=== PATIENT | female | born 1950 | race Caucasian/White ===

== ENCOUNTER 2019-09-23 14:58 | Outpatient (CLI) | payer MEDICARE, OTHER, SELFPAY ==
--- NOTE | ~2019-09-23 | MM_ITS ---
EXAMINATION: MM screening enzo BI w jasson HISTORY: Screening mammogram TECHNIQUE: Craniocaudal and mediolateral oblique 3-D tomosynthesis images were obtained and synthetic 2-D images were generated. CAD analysis was submitted and interpreted. COMPARISON: 10/03/2011 bilateral digital screening mammogram BREAST PARENCHYMAL COMPOSITION: There are scattered areas of fibroglandular density. FINDINGS: There is no evidence of suspicious mass, calcification, or architectural distortion to sugg est malignancy in either breast. There has been no suspicious interval change. IMPRESSION: 1. No mammographic evidence of malignancy. 2. Recommend routine screening mammography in one year. BI-RADS Category 1: Negative Reviewed, dictated and finalized at location A. 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
--- NOTE | ~2019-09-23 | DEXA_ITS ---
Bone Density Report Name: Ce Young Age: 69 Sex: Female Ethnicity: White Date of : 1950 Indication: postmenopausal; height loss; prior fracture; cancer; hysterectomy; Referring Provider: Axel Price Study: Bone densitometry was performed. Exam Date: September 23, 2019 Accession number: [id number] Bone Density: Region BMD T-score Z-score Classification AP Spine (L1, L3, L4) 1.051 0.0 2.1 Normal Femoral Neck (Left) 0.832 -0.2 1.6 Normal Total Hip (Left) 0.942 0.0 1.5 Normal World Health Organization criteria for BMD impression classify patients as: Normal (T-score at or above -1.0), Osteopenia (T-score between -1.0 and -2.5), or Osteoporosis (T-score at or below -2.5). 10-year Fracture Risk: FRAX not reported because: All T-scores for Spine Total, Hip Total, Femoral Neck at or above -1.0 Prior hip or vertebral fracture Previous Exams: Region Exam Age BMD T-score BMD Change BMD Change Date g/cm2 vs Baseline vs Previous AP Spine(L1, L3, L4) 09/23/2019 69 1.051 0.0 0.028(2.8%)# 0.028(2.8%)# 03/24/2010 59 1.023 -0.3 Total Hip(Left) 09/23/2019 69 0.942 0.0 -0.011(-1.1%)# -0.011(-1.1%)# 03/24/2010 59 0.952 0.1 *Denotes significance at 95% confidence level, LSC for AP Spine = 0.022 g/cm2, LSC for Total Hip = 0.027 g/cm2 Clinical Information Provided by Patient: Have had a previous hip or vertebral fracture Has had a low trauma fracture Has used the following medications: Calcium Has the following medical conditions: Cancer, Hysterectomy Patient maximum height was 67 Menopause Age: 40 No regular weight bearing exercise Does not regularly consume dairy products Drinks caffeinated beverages Onset of menses at age 14 Number of children 2 Impression: The patient has normal bone mass. The patient has risk factors, including: previous fracture. No significant bone loss was observed. Discussion: INCREASED RISK OF FRACTURE DUE TO HISTORY OF FRACTURE. The patient's previous fracture puts the patient at high risk of a future fracture. In untreated patients, the risk of osteoporotic fracture increases approximately two-fold for each 1.0 SD decrease in T-score. Low bone density is not the only risk factor for fracture; also consider factors such as patient's age, frailty or poor health, risk of falling, risk of injury, previous osteoporotic fracture, family history of osteoporosis, cigarette smoking, low body weight, etc. Not everyone with a low trauma fracture has osteoporosis; osteomalacia and other met
== END 2019-09-23 14:59 | disposition home or self-care (01) ==
LOC: ANHIMG 15:07
PROVIDERS: PCP Family Medicine; Visit Provider Family Medicine
DX: Z12.31 Encounter for screening mammogram for malignant neoplasm of breast (principal); Z78.0 Asymptomatic menopausal state
CPT/HCPCS: 77063; 77067; 77080

== ENCOUNTER 2019-10-13 12:33 | Outpatient (CLI) | payer MEDICARE, OTHER, SELFPAY ==
[2019-10-13 12:57] LABS: Hematocrit 38.8 % (37.0-47.0); Mean Corpuscular HGB Conc 30.9 g/dl (32-36); Mean Corpuscular Hemoglobin 25.5 pg (26-34); Mean Corpuscular Volume 82.6 fl (80-100); Mean Platelet Volume 10.6 fl (7.4-10.4); Platelet Count Result 201 k/mm3 (150-375); Red Cell Distribution Width 13.5 % (11.5-14.5); White Blood Count 7.3 K/mm3 (4.5-10.0)
[2019-10-13 16:48] LABS: Iron 74 ug/dL (37-170)
[2019-10-13 16:57] LABS: Percent Iron Saturation 29 % (20-50)
== END 2019-10-13 12:34 | disposition home or self-care (01) ==
PROVIDERS: PCP Family Medicine; Visit Provider Internal Medicine Hematology & Oncology
DX: D50.9 Iron deficiency anemia, unspecified (principal)
CPT/HCPCS: 36415; 82607; 82728; 83540; 83550; 85027

== ENCOUNTER 2019-10-19 12:20 | Outpatient (RCR) | payer MEDICARE, OTHER, SELFPAY ==
[2019-10-19 13:16] VITALS: BMI 26.4
== END 2019-11-25 15:02 | disposition home or self-care (01) ==
LOC: ANHWOC 12:20
PROVIDERS: PCP Family Medicine; Visit Provider Family Medicine
DX: E11.621 Type 2 diabetes mellitus with foot ulcer (principal); L97.529 Non-pressure chronic ulcer of other part of left foot with unspecified severity
CPT/HCPCS: 99212; G0463

== ENCOUNTER 2019-10-22 15:22 | Outpatient (CLI) | payer MEDICARE, OTHER, SELFPAY ==
--- NOTE | ~2019-10-22 | XR_ITS ---
XR toe 1st LT min 2V 10/22/2019 16:04 Indication: Evaluate for osteomyelitis. Abrasion plantar surface left first digit. Procedure: 4 views left first toe Comparison: 05/2014 Findings: No fracture, subluxation or dislocation. Mild soft tissue swelling overlying the distal pha lanx. No foreign bodies. No osteolytic or blastic lesions are seen. No periosteal reaction. Normal al ignment. Impression: 1: No evidence for osteomyelitis. Consider correlation with MRI if there is clinical concern for oste omyelitis. Reviewed, dictated and finalized at location A. Impression: 1: No evidence for osteomyelitis. Consider correlation with MRI if there is cli nical concern for osteomyelitis.
== END 2019-10-22 15:23 | disposition home or self-care (01) ==
LOC: ANHIMG 15:31
PROVIDERS: PCP Family Medicine; Visit Provider Podiatrist Foot & Ankle Surgery
DX: M86.8X7 Other osteomyelitis, ankle and foot (principal)
CPT/HCPCS: 73660

== ENCOUNTER 2019-10-28 09:36 | Outpatient (CLI) | payer MEDICARE, OTHER, SELFPAY ==
--- NOTE | ~2019-10-28 | US_ITS ---
EXAMINATION: US carotid duplex BI EXAM DATE: 10/28/2019 11:15 INDICATION: Carotid stenosis, left carotid occlusion. TECHNIQUE: Grayscale, color and pulsed Doppler images of the cervical carotid arteries were obtained . The degree of vessel stenosis is placed in one of the following categories: normal, <50% stenosis, 50-69% stenosis, >=70% stenosis but less than near-occlusion, near-occlusion, or occlusion. Note that percent stenosis relative to normal distal artery lumen diameter is indirectly measured from velocit y measurements as described by Jeff, et al. Radiology 2003; [id number]:[id number]. Comparison is made to prior examination from 07/04/2015. FINDINGS: RIGHT SIDE: Right common carotid artery peak systolic velocity (PSV in cm/s): 102 Right bulb/internal carotid artery peak systolic velocity (PSV in cm/s): 48 Right internal carotid artery end diastolic velocity (EDV in cm/s): 41 Right ICA/CCA peak systolic ratio: 1.5 Right external carotid artery peak systolic velocity (PSV in cm/s): 2.1 Right vertebral artery antegrade flow: yes There is minimal carotid bulb plaque with discordant mildly elevated velocity. Visually, less than 50% stenosis category. LEFT SIDE: Left common carotid artery peak systolic velocity (PSV in cm/s): 28 Left bulb/internal carotid artery peak systolic velocity (PSV in cm/s): Included Left internal carotid artery end diastolic velocity (EDV in cm/s): Occluded Left ICA/CCA peak systolic ratio: Left external carotid artery peak systolic velocity (PSV in cm/s): 299 Left vertebral artery antegrade flow: yes No left ICA flow. IMPRESSION: 1. Less than 50 percent stenosis in the right internal carotid artery. 2. Occluded left internal carotid artery. > Reviewed, dictated and finalized at location A.
== END 2019-10-28 09:37 | disposition home or self-care (01) ==
PROVIDERS: PCP Family Medicine; Visit Provider Internal Medicine Cardiovascular Disease
DX: I65.29 Occlusion and stenosis of unspecified carotid artery (principal)
CPT/HCPCS: 93880

== ENCOUNTER 2019-11-06 22:50 | Emergency (ER) | payer MEDICARE, OTHER, SELFPAY ==
--- NOTE | ~2019-11-06 | XR_ITS ---
EXAMINATION: XR hip RT 2V w AP pelvis DATE: 11/06/2019 23:51 INDICATION: Right hip pain. Fall. TECHNIQUE: An anteroposterior view of the pelvis and 3 views of right hip were obtained. COMPARISON: Pelvis and right hip radiographs 07/05/2019 FINDINGS: There is an old healed fracture of proximal right femur with internal fixation with antegra de intramedullary zara, distal interlocking screw, and femoral head/neck screw. No acute fracture. The re is mild right hip osteoarthritis. A generator overlies right pelvis with electrodes overlying the spine. A catheter overlies the spine. IMPRESSION: 1. Mild right hip osteoarthritis. Reviewed, dictated and finalized at location A.
--- NOTE | ~2019-11-06 | CT_ITS ---
EXAMINATION: CT brain wo con DATE: 11/06/2019 23:50 INDICATION: Head injury. Headache. TECHNIQUE: Computed tomography (CT) of the head was performed without intravenous contrast. The mA wa s adjusted according to patient size. Iterative reconstruction technique was employed. The dose-lengt h product was 605.33 mGy-cm. COMPARISON: Head CT 02/13/2019 FINDINGS: There is an old infarct involving left temporal parietal region and posterior left insula. There is an old infarct in involving left frontal lobe and anterior left insula. There is no intracra nial hemorrhage, acute infarction, or abnormal intracranial mass lesion. The ventricles are normal in size. There is mild mucosal thickening in the ethmoid sinuses. The mastoid air cells are normal. The re are likely changes of ocular lens replacement surgeries. IMPRESSION: 1. 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 Reviewed, dictated and finalized at location A. IMPRESSION: 1. Old infarcts involving left frontal lobe, left insula, and left temporal par ietal region.
[2019-11-06 22:55] VITALS: BP 144/60; PULSE 66; RESP 16; TEMP 36.4; O2SAT 98
--- NOTE | 2019-11-06 23:05 | ED.FALL ---
HPI - Fall General Chief Complaint: Fall Stated Complaint: Hip pain Time Seen by Provider: 11/06/19 23:05 Source: patient Mode of arrival: ambulatory Limitations: no limitations History of Present Illness HPI Narrative: 69-year-old woman comes in today complaining of right hip pain after falling at home. She states the last few days she has felt off balance. She states that she had 2 episodes earlier today where she fell and caught herself however at approximately 9:00 p.m. this evening she fell on her right hip in her head. She did not lose consciousness. She denies president symptoms such as lightheadedness, nausea, palpitations, rapid heart rate, chest pain, shortness of breath or recent illness. MD complaint: fall Onset (ago): hour(s) (2) Fall from: standing Fall witnessed: no Place fall occurred: home Loss of consciousness: none Prolonged down time: no Symptoms prior to fall: none Location of injury: head Location of injury - extremities: Right: thigh Severity: moderate Quality: sharp and aching Associated symptoms (after fall): denies Related Data Home Medications Medication Instructions Recorded Confirmed aspirin 81 mg tablet,delayed 81 mg PO BID 06/22/19 11/06/19 release atorvastatin 10 mg tablet 20 mg PO HS 06/22/19 11/06/19 docusate sodium 100 mg capsule 100 mg PO DAILY PRN 06/22/19 11/06/19 empagliflozin 25 mg tablet 25 mg PO DAILY 06/22/19 11/06/19 ferrous sulfate 325 mg (65 mg 325 mg PO TID tablet 06/22/19 11/06/19 iron) tablet hydralazine 25 mg tablet 50 mg PO TID 06/22/19 10/26/19 hydrochlorothiazide 25 mg tablet 25 mg PO DAILY 06/22/19 10/26/19 insulin glargine 100 unit/mL 30 unit SUB-Q BID ml 06/22/19 10/26/19 subcutaneous solution montelukast 10 mg tablet 10 mg PO DAILY 06/22/19 10/26/19 omega-3 acid ethyl esters 1 gram 1 cap PO TID cap 06/22/19 10/26/19 capsule ascorbic acid (vitamin C) [Vitamin 500 mg PO DAILY 10/19/19 11/06/19 C With Марина Hips] cyanocobalamin (vitamin B-12) 1,000 mcg PO DAILY 10/19/19 11/06/19 [Vitamin B-12] magnesium oxide 400 mg PO BID 10/19/19 10/26/19 mirabegron [Myrbetriq] 25 mg PO DAILY 10/19/19 10/26/19 Allergies Allergy/AdvReac Type Severity Reaction Status Date / Time oxybutynin Allergy Intermediate PROBLEMS Verified 10/26/19 13:35 BREATHING bupropion Allergy Unknown Nervousness Verified 10/26/19 13:35 cephalexin Allergy Unknown unknown Verified 10/26/19 13:35 fexofenadine Allergy Unknown UPPER RESP Verified 10/26/19 13:35 INFECTION lisinopril Allergy Unknown TONGUE Verified 10/26/19 13:35 Swelling paroxetine Allergy Unknown NIGHT Verified 10/26/19 13:35 SWEATS tizanidine Allergy Unknown blurred Verified 10/26/19 13:35 vision trimethoprim Allergy Unknown Unknown Verified 10/26/19 13:35 Review of Systems Constitutional: Constitutional: Denies chills, Denies fever(s) and Denies weakness Eyes: Eyes: Denies change in vision and Denies photophobia ENT: Denies dysphagia, Denies nasal congestion and Denies sore throat Cardiovascular: Cardiovascular: Denies chest pain and Denies radiating jaw, neck or arm pain Respiratory: Respiratory: Denies cough, Denies dyspnea and Denies wheezing Gastrointestinal: Gastrointestinal: Denies abdominal pain, Denies diarrhea, Denies nausea and Denies vomiting Genitourinary: Genitourinary: Denies hematuria, Denies nocturia and Denies dysuria Musculoskeletal: Musculoskeletal: Reports as per HPI, Denies back pain, Reports arthralgias and Denies joint swelling Integumentary/Breasts: Skin/Breast: Denies pruritus, Denies erythema and Denies rash Neurologic: Reports as per HPI, Denies vertigo, Reports dizziness and Denies syncope Psychiatric: Psychiatric: Denies anxiety and Denies depression Endocrine: Endocrine: Denies polydipsia and Denies polyuria Hematologic/Lymphatic: Hematologic/Lymphatic: Denies easy bleeding and Denies easy bruising Allergic/Immunologic: Allergic/Immunologic: Caio
--- NOTE | 2019-11-06 23:15 | ECG_ITS ---
Measurements Intervals [place] Rate: 72 P: 93 W[place]: 181 QRS: -14 QRSD: 84 T: 28 QT: 414 QTc: 455 Interpretive Statements SINUS RHYTHM LOW QRS VOLTAGE IN PRECORDIAL LEADS BORDERLINE R WAVE PROGRESSION, ANTERIOR LEADS CONSIDER INFERIOR INFARCT, AGE INDETERMINATE ABNORMAL ECG Electronically Signed On 11-07-2019 8:31:52 CDT by Frantz Guzman D.O.
[2019-11-06 23:38] LABS: Add Urine Microscopic? YES; Appearance Urine Clear (Clear); Bilirubin Urine Negative (Negative); Blood Urine Negative (Negative); Color Urine Yellow (Yellow); Glucose Urine UA 3+ (Negative); Ketones Urine Negative (Negative); Leukocyte Esterase Ur Negative (Negative); Nitrate Urine Negative (Negative); Protein Urine Negative (Negative); Specific Grav Ur 1.015 (1.010-1.020); Urobilinogen Urine 0.2 mg/dL (0.2-1.0); pH Urine 5.5 (5.0-8.0)
[2019-11-06 23:39] LABS: Basophils Absolute Auto 0.06 K/mm3 (0.00-0.10); Basophils Percent Auto 0.6 % (0.0-1.0); Eosinophils Absolute Auto 0.24 K/mm3 (0.02-0.50); Eosinophils Percent Auto 2.5 % (1.0-6.0); Hematocrit 37.9 % (35.0-42.0); Hemoglobin 12.2 g/dL (11.7-13.8); Immature Granulocyte Absolute 0.04 K/mm3 (0.00-0.00); Immature Granulocyte Percent A 0.4 % (0.0-0.0); Lymphocytes Absolute Auto 1.47 K/mm3 (1.10-4.50); Lymphocytes Percent Auto 15.1 % (18.0-42.0); Mean Corpuscular HGB Conc 32.2 g/dL (32.0-36.0); Mean Corpuscular Hemoglobin 25.8 pg (27.0-31.0); Mean Corpuscular Volume 80.3 fL (78.0-102.0); Mean Platelet Volume 10.9 fl (9.2-11.8); Monocytes Percent Auto 7.2 % (2.0-11.0); Neutrophils Absolute Auto 7.2 K/mm3 (1.7-7.2); Neutrophils Percent Auto 74.2 % (50.0-70.0); Platelet Count Result 265 K/mm3 (150-420); Red Blood Count 4.72 M/mm3 (4.20-5.40); Red Cell Distribution Width 13.2 % (11.6-14.4); White Blood Count 9.7 K/mm3 (4.8-10.8)
[2019-11-06 23:44] LABS: RBC Urine 0-2 /hpf (0-2); Squamous Epithelial Cell Urine Rare /hpf (Few); WBC Urine 0-3 /hpf (0-3)
[2019-11-06 23:45] LABS: Bacteria Urine Trace /hpf
[2019-11-06 23:57] VITALS: BP 142/63; PULSE 70; RESP 16; O2SAT 98
[2019-11-06 23:57] LABS: Anion Gap 13.2 mmol/L (7-16); Blood Urea Nitrogen 27 mg/dL (7-18); Calcium 8.7 mg/dL (8.5-10.1); Carbon Dioxide 28 mmol/L (21-32); Chloride 100 mmol/L (98-108); Estimated CRCL calculation 40 ml/min; Estimated Glomerular Filt Rate 47; Glucose 164 mg/dL (70-99); Osmolality Calculated 293 mOsm/kg (285-295); Potassium 4.2 mmol/L (3.5-5.1); Sodium 137 mmol/L (136-145)
[2019-11-07 00:06] LABS: Troponin I < 0.02 ng/mL (0.00-0.056)
[2019-11-07 00:17] VITALS: BP 140/80; PULSE 66; RESP 16; TEMP 36.4; O2SAT 98
== END 2019-11-07 00:31 | disposition home or self-care (01) ==
PROVIDERS: Emergency Provider Emergency Medicine; PCP Family Medicine
DX: R26.89 Other abnormalities of gait and mobility (principal); S70.01XA Contusion of right hip, initial encounter; N18.9 Chronic kidney disease, unspecified; E11.9 Type 2 diabetes mellitus without complications; Z86.73 Personal history of transient ischemic attack (TIA), and cerebral infarction without residual deficits; E78.5 Hyperlipidemia, unspecified; Z85.528 Personal history of other malignant neoplasm of kidney; Z87.891 Personal history of nicotine dependence; W19.XXXA Unspecified fall, initial encounter; I12.9 Hypertensive chronic kidney disease with stage 1 through stage 4 chronic kidney disease, or unspecified chronic kidney disease
CPT/HCPCS: 36415; 70450; 73502; 73521; 80048; 81001; 84484; 85025; 93005; 99284

== ENCOUNTER 2019-12-09 15:53 | Outpatient (CLI) | payer MEDICARE, OTHER, SELFPAY ==
--- NOTE | ~2019-12-09 | XR_ITS ---
EXAMINATION: XR toe 1st LT min 2V EXAM DATE: 12/09/2019 16:22 INDICATION: Left foot infection, pain. Rule out osteomyelitis. TECHNIQUE: Left first finger frontal, lateral and oblique projections obtained and reviewed. Compari son is made to prior examination from 10/22/2019. FINDINGS: Tiny erosion identified along the volar medial nonarticular aspect of the left first distal phalangeal base, suspicious for early osteomyelitis. This was not evident on the prior study. This f inding has been indicated, marked on the examination for review, clinical correlation. There are siza ble ulceration identified overlying the toe and there is extensive soft tissue swelling without evide nce of subcutaneous gas. There are no acute fractures identified. No radiopaque foreign bodies identi fied. IMPRESSION: 1. Interval development of small erosive change at medial aspect left first distal phalangeal base kolb spicious for early osteomyelitis. 2. First digit soft tissue ulceration, swelling. Reviewed, dictated and finalized at location A. IMPRESSION: 1. Interval development of small erosive change at medial aspect left first dis debi phalangeal base suspicious for early osteomyelitis. 2. First digit soft tissue ulceration, swelling.
== END 2019-12-09 15:54 | disposition home or self-care (01) ==
PROVIDERS: PCP Family Medicine; Visit Provider Podiatrist Foot & Ankle Surgery
DX: M86.8X7 Other osteomyelitis, ankle and foot (principal)
CPT/HCPCS: 73660

== ENCOUNTER 2019-12-21 12:18 | Outpatient (CLI) | payer MEDICARE, OTHER, SELFPAY ==
--- NOTE | ~2019-12-21 | US_ITS ---
EXAMINATION: US arterial duplex LE EXAM DATE: 12/21/2019 13:33 INDICATION: Left first toe osteomyelitis. TECHNIQUE: Multiple grayscale and Doppler images of the left lower extremity were obtained (by a tech nologist who performed the scan) and subsequently reviewed. There is no prior study for comparison. FINDINGS: Following left lower extremity velocities reported in centimeters per second. DIRECTOR OF INTELLIGENCE: 134 DFA: 95 SFA proximally 123, mid 129, distally 125 Popliteal proximally 95, distally 99 Dorsalis pedis 47 MANAGER OF RECRUITING mid 83, distally 87 Peroneal mid 54, distally 34 Anterior tibial 54 IMPRESSION: Left lower extremity arterial velocities as above. Reviewed, dictated and finalized at location A.
== END 2019-12-21 12:19 | disposition home or self-care (01) ==
LOC: ANHIMG 12:27
PROVIDERS: PCP Family Medicine; Visit Provider Internal Medicine Infectious Disease
DX: M86.179 Other acute osteomyelitis, unspecified ankle and foot (principal); R09.89 Other specified symptoms and signs involving the circulatory and respiratory systems
CPT/HCPCS: 36569; 93926; C1751

== ENCOUNTER 2019-12-26 02:21 | Emergency (ER) | payer MEDICARE, OTHER, SELFPAY ==
--- NOTE | ~2019-12-26 | XR_ITS ---
EXAMINATION: XR chest 2V DATE: 12/26/2019 03:15 INDICATION: Chest pain after fall TECHNIQUE: Frontal and lateral views of the chest are obtained COMPARISON: 02/13/2019 FINDINGS: The lungs are free of acute opacities. There is no pleural effusion or pneumothorax. The ca rdiomediastinal silhouette is normal. Neurostimulator leads project in the central spinal canal over the mid/lower thoracic spine. There is a questionable subtle irregularity of the lower sternum on the lateral view. Surgical clips in the right upper quadrant are likely from prior cholecystectomy. IMPRESSION: 1. No acute cardiopulmonary abnormality. 2. Possible nondisplaced fracture of the lower sternum. Reviewed, dictated and finalized at location A.
[2019-12-26 02:34] VITALS: BP 131/84; PULSE 81; RESP 20; TEMP 36.4; O2SAT 97
--- NOTE | 2019-12-26 02:38 | ED.GENADULT ---
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 She fell asleep in an office chair, which she does frequently, and landed forward on her face and chest. She immediately started having an aching pain in her sternum. Preciding going down she was asleep and had no CP. No SOB, N/V, lightheadedness, syncope or diaphoresis. Related Data Home Medications Medication Instructions Recorded Confirmed aspirin 81 mg tablet,delayed 81 mg PO BID 06/22/19 12/26/19 release docusate sodium 100 mg capsule 100 mg PO DAILY PRN 06/22/19 12/26/19 ferrous sulfate 325 mg (65 mg 325 mg PO TID tablet 06/22/19 12/26/19 iron) tablet hydralazine 25 mg tablet 50 mg PO TID 06/22/19 12/26/19 hydrochlorothiazide 25 mg tablet 25 mg PO DAILY 06/22/19 12/26/19 insulin glargine 100 unit/mL 20 unit SUB-Q BID ml 06/22/19 12/26/19 subcutaneous solution montelukast 10 mg tablet 10 mg PO DAILY 06/22/19 12/26/19 cyanocobalamin (vitamin B-12) 1,000 mcg PO DAILY 10/19/19 12/26/19 [Vitamin B-12] mirabegron [Myrbetriq] 25 mg PO DAILY 10/19/19 12/26/19 metformin 1,000 mg PO BID 12/26/19 12/26/19 montelukast [Singulair] 10 mg PO HS 12/26/19 12/26/19 omega-3 acid ethyl esters [Lovaza] 1 cap PO BID 12/26/19 12/26/19 omega-3 acid ethyl esters [Lovaza] 1 cap PO BID 12/26/19 12/26/19 valsartan [Diovan] 40 mg PO BID 12/26/19 12/26/19 Allergies Allergy/AdvReac Type Severity Reaction Status Date / Time oxybutynin Allergy Intermediate PROBLEMS Verified 10/26/19 13:35 BREATHING bupropion Allergy Unknown Nervousness Verified 10/26/19 13:35 cephalexin Allergy Unknown unknown Verified 10/26/19 13:35 fexofenadine Allergy Unknown UPPER RESP Verified 10/26/19 13:35 INFECTION lisinopril Allergy Unknown TONGUE Verified 10/26/19 13:35 Swelling paroxetine Allergy Unknown NIGHT Verified 10/26/19 13:35 SWEATS tizanidine Allergy Unknown blurred Verified 10/26/19 13:35 vision trimethoprim Allergy Unknown Unknown Verified 10/26/19 13:35 Review of Systems Constitutional: Constitutional: Denies chills, Denies fever(s) and Denies weakness Eyes: Eyes: Reports no additional eye complaints ENT: Reports system reviewed and no additional complaints, except as documented Cardiovascular: Cardiovascular: Denies no additional cardiovascular complaints Respiratory: Respiratory: Denies no additional respiratory complaints, Denies cough, Denies dyspnea and Denies wheezing Gastrointestinal: Gastrointestinal: Reports no additional gastrointestinal complaints, Denies abdominal pain, Denies diarrhea, Denies nausea and Denies vomiting Genitourinary: Genitourinary: Reports no additional female genitourinary complaints Musculoskeletal: Musculoskeletal: Reports no additional musculoskeletal complaints Neurologic: Reports system reviewed and no additional complaints, except as documented Psychiatric: Comments: Is worried about a in the hospital with surgery after a bowel surgery was taken out. Endocrine: Endocrine: Reports no additional endocrine complaints Hematologic/Lymphatic: Hematologic/Lymphatic: Reports no additional hematologic/lymphatic complaints Allergic/Immunologic: Allergic/Immunologic: Reports no additional allergic/immunologic complaints [facility] Past Medical History Medical History Anemia Anxiety Chronic kidney disease CVA (cerebral vascular accident) Diabetes type 2, controlled Diverticulosis Dyslipidemia Hypertension Kidney malignant neoplasm Right femoral fracture Right patella fracture Sleep apnea Vitamin B12 deficiency Surgical History Surgical History (Reviewed 12/26/19 @ 02:56 by Kiet Titus
[2019-12-26 03:28] VITALS: BP 157/64; PULSE 85; RESP 18; TEMP 36.7; O2SAT 98
--- NOTE | 2019-12-26 04:01 | PC.NURSE ---
ERP called pt. at home p d/c to discuss radiology findings and results. Pt. aware of results and POC to return if sxs worsen and to f/u c her FMD.
== END 2019-12-26 03:36 | disposition home or self-care (01) ==
PROVIDERS: Emergency Provider Family Medicine; PCP Family Medicine
DX: R07.89 Other chest pain (principal); E11.9 Type 2 diabetes mellitus without complications; N18.9 Chronic kidney disease, unspecified; I12.9 Hypertensive chronic kidney disease with stage 1 through stage 4 chronic kidney disease, or unspecified chronic kidney disease
CPT/HCPCS: 71046; 99282; 99283; A9270

== ENCOUNTER 2019-12-29 09:47 | Outpatient (RCR) | payer MEDICARE, OTHER, SELFPAY ==
[2019-12-21 11:05] VITALS: BP 140/47; PULSE 92; RESP 18; TEMP 36; O2SAT 100
[2019-12-29 09:55] VITALS: BP 152/63; PULSE 99; RESP 16; TEMP 36.6; O2SAT 96
[2019-12-29 11:41] VITALS: BMI 25.5
== END 2020-03-20 23:59 | disposition home or self-care (01) ==
LOC: ANHVASCINF 09:47
PROVIDERS: PCP Family Medicine; Visit Provider Internal Medicine Infectious Disease
DX: M86.179 Other acute osteomyelitis, unspecified ankle and foot (principal)
CPT/HCPCS: 36569; 96361; 96365; C1751; J0696

== ENCOUNTER 2020-01-28 10:52 | Outpatient (RCR) | payer MEDICARE, SELFPAY ==
[2020-01-07 17:56] LABS: Basophils Absolute Auto 0.1 K/mm3 (0.0-0.1); Basophils Percent Auto 0.6 % (0.2-1.2); Eosinophils Absolute Auto 0.4 K/mm3 (0-0.3); Eosinophils Percent Auto 4.5 % (0-4.4); Hematocrit 27.7 % (37.0-47.0); Hemoglobin 8.6 g/dL (12.0-15.0); Immature Granulocyte Absolute 0.02 K/mm3 (0.00-0.031); Immature Granulocyte Percent A 0.2 % (0-0.5); Lymphocytes Absolute Auto 1.82 K/mm3 (0.9-3.2); Lymphocytes Percent Auto 22.2 % (18.3-44.2); Mean Corpuscular Hemoglobin 25.6 pg (26-34); Mean Corpuscular Volume 82.4 fl (80-100); Mean Platelet Volume 11.1 fl (7.4-10.4); Monocytes Absolute Auto 0.7 K/mm3 (0.1-0.6); Monocytes Percent Auto 8.6 % (2.6-8.5); Neutrophils Absolute Auto 5.2 K/mm3 (1.3-6.7); Neutrophils Percent Auto 63.9 % (45.5-73.1); Platelet Count Result 252 k/mm3 (150-375); Red Blood Count 3.36 M/mm3 (4.2-5.4); White Blood Count 8.2 K/mm3 (4.5-10.0)
[2020-01-07 18:12] LABS: Alanine Aminotransferase 11 U/L (4-35); Albumin Level 3.4 g/dL (3.5-5.1); Alkaline Phosphatase 110 U/L (38-126); Aspartate Amino Transferase 17 U/L (14-36); Bilirubin,Total 0.1 mg/dL (0.2-1.3); Blood Urea Nitrogen 18 mg/dL (7-17); Calcium 8.3 mg/dL (8.4-10.2); Carbon Dioxide 30 mmol/L (22-30); Chloride 101 mmol/L (98-107); Estimated Glomerular Filt Rate > 60; Glucose 166 mg/dL (65-105); Potassium 3.5 mmol/L (3.4-5.0); Sodium 137 mmol/L (137-145)
[2020-01-07 18:13] LABS: CRP 3.7 mg/dL (<1.0)
[2020-01-14 13:23] LABS: Basophils Absolute Auto 0.1 K/mm3 (0.0-0.1); Basophils Percent Auto 0.6 % (0.2-1.2); Eosinophils Absolute Auto 0.5 K/mm3 (0-0.3); Eosinophils Percent Auto 4.8 % (0-4.4); Hematocrit 34.4 % (37.0-47.0); Hemoglobin 10.6 g/dL (12.0-15.0); Immature Granulocyte Absolute 0.04 K/mm3 (0.00-0.031); Immature Granulocyte Percent A 0.4 % (0-0.5); Lymphocytes Absolute Auto 1.78 K/mm3 (0.9-3.2); Lymphocytes Percent Auto 18.1 % (18.3-44.2); Mean Corpuscular HGB Conc 30.8 g/dl (32-36); Mean Corpuscular Hemoglobin 25.4 pg (26-34); Mean Corpuscular Volume 82.5 fl (80-100); Mean Platelet Volume 11.1 fl (7.4-10.4); Monocytes Absolute Auto 0.9 K/mm3 (0.1-0.6); Monocytes Percent Auto 8.8 % (2.6-8.5); Neutrophils Absolute Auto 6.6 K/mm3 (1.3-6.7); Neutrophils Percent Auto 67.3 % (45.5-73.1); Platelet Count Result 309 k/mm3 (150-375); Red Blood Count 4.17 M/mm3 (4.2-5.4); Red Cell Distribution Width 14.1 % (11.5-14.5); White Blood Count 9.9 K/mm3 (4.5-10.0)
[2020-01-14 13:30] LABS: Alanine Aminotransferase 13 U/L (4-35); Alkaline Phosphatase 147 U/L (38-126); Aspartate Amino Transferase 20 U/L (14-36); Bilirubin,Total 0.1 mg/dL (0.2-1.3); Blood Urea Nitrogen 20 mg/dL (7-17); CRP 3.8 mg/dL (<1.0); Calcium 8.6 mg/dL (8.4-10.2); Carbon Dioxide 33 mmol/L (22-30); Chloride 95 mmol/L (98-107); Estimated Glomerular Filt Rate > 60; Glucose 117 mg/dL (65-105); Potassium 3.7 mmol/L (3.4-5.0); Sodium 133 mmol/L (137-145)
[2020-01-28 11:52] LABS: Alanine Aminotransferase 13 U/L (4-35); Albumin Level 3.7 g/dL (3.5-5.1); Alkaline Phosphatase 113 U/L (38-126); Aspartate Amino Transferase 18 U/L (14-36); Bilirubin,Total < 0.1 mg/dL (0.2-1.3); Blood Urea Nitrogen 18 mg/dL (7-17); CRP 1.2 mg/dL (<1.0); Calcium 8.6 mg/dL (8.4-10.2); Carbon Dioxide 33 mmol/L (22-30); Chloride 96 mmol/L (98-107); Estimated Glomerular Filt Rate > 60; Glucose 179 mg/dL (65-105); Potassium 4.1 mmol/L (3.4-5.0); Sodium 135 mmol/L (137-145)
[2020-01-28 12:31] LABS: Basophils Absolute Auto 0.1 K/mm3 (0.0-0.1); Basophils Percent Auto 0.9 % (0.2-1.2); Eosinophils Absolute Auto 0.4 K/mm3 (0-0.3); Eosinophils Percent Auto 7.2 % (0-4.4); Hematocrit 34.3 % (37.0-47.0); Hemoglobin 10.4 g/dL (12.0-15.0); Immature Granulocyte Absolute 0.02 K/mm3 (0.00-0.031); Immature Granulocyte Percent A 0.4 % (0-0.5); Lymphocytes Absolute Auto 1.23 K/mm3 (0.9-3.2); Lymphocytes Percent Auto 21.7 % (18.3-44.2); Mean Corpuscular HGB Conc 30.3 g/dl (32-36); Mean Corpuscular Hemoglobin 24.9 pg (26-34); Mean Corpuscular Volume 82.3 fl (80-100); Mean Platelet Volume 11.1 fl (7.4-10.4); Monocytes Absolute Auto 0.6 K/mm3 (0.1-0.6); Monocytes Percent Auto 10.4 % (2.6-8.5); Neutrophils Absolute Auto 3.4 K/mm3 (1.3-6.7); Neutrophils Percent Auto 59.4 % (45.5-73.1); Platelet Count Result 255 k/mm3 (150-375); Red Blood Count 4.17 M/mm3 (4.2-5.4); Red Cell Distribution Width 14.2 % (11.5-14.5); White Blood Count 5.7 K/mm3 (4.5-10.0)
== END 2020-04-06 23:59 | disposition home or self-care (01) ==
LOC: HOME HLTH 10:52
PROVIDERS: PCP Family Medicine; Visit Provider Internal Medicine Infectious Disease
DX: M86.8X7 Other osteomyelitis, ankle and foot (principal); L97.529 Non-pressure chronic ulcer of other part of left foot with unspecified severity; Z79.2 Long term (current) use of antibiotics
CPT/HCPCS: 80053; 85025; 86140

== ENCOUNTER 2020-02-11 11:33 | Outpatient (CLI) | payer MEDICARE, OTHER, SELFPAY ==
--- NOTE | ~2020-02-11 | XR_ITS ---
EXAMINATION: XR foot LT 2V DATE: 02/11/2020 12:13 INDICATION: Acute osteomyelitis TECHNIQUE: Dorsoplantar and lateral views of the left foot were obtained. COMPARISON: Left toe radiographs dated 12/09/2019 FINDINGS: Alignment is normal. Prominent juxta articular erosion with overhanging edge at the medial head of th e right first proximal phalanx which appears to result from an expansile process with medial displace ment of a few tiny bone fragments. Old healed fracture deformity at the neck of the fifth metatarsal. No other fractures identified. Aside from the first interphalangeal joint which is normal profile. R emaining joint spaces appear relatively preserved. Likely osteochondral lesion at the medial talar do me with similar appearance as seen on the prior radiographs of the contralateral left ankle. Small pl kaylene calcaneal spur. IMPRESSION: 1. Erosion at the medial head of the right first proximal phalanx which could be related to gout or o steomyelitis. 2. Osteochondral lesion at the medial right talar dome. Reviewed, dictated and finalized at location A. IMPRESSION: 1. Erosion at the medial head of the right first proximal phalanx which could b e related to gout or osteomyelitis. 2. Osteochondral lesion at the medial right talar dome.
== END 2020-02-11 11:34 | disposition home or self-care (01) ==
PROVIDERS: PCP Family Medicine; Visit Provider Internal Medicine Infectious Disease
DX: M86.179 Other acute osteomyelitis, unspecified ankle and foot (principal)
CPT/HCPCS: 73620

== ENCOUNTER 2020-02-24 17:54 | Outpatient (CLI) | payer MEDICARE, OTHER, SELFPAY ==
--- NOTE | ~2020-02-24 | CT_ITS ---
EXAMINATION: CT thoracic lumbar wo con DATE: 02/24/2020 18:23 INDICATION: Thoracic back pain. Low back pain. TECHNIQUE: Computed tomography (CT) of the thoracic and lumbar spine was performed without intravenou s contrast. Automated exposure control and iterative reconstruction technique were employed. The dose -length product was 1217.78 mGy-cm. COMPARISON: Thoracic spine CT 10/09/2014, chest CT 10/24/2018 FINDINGS: CT THORACIC SPINE: There is mild emphysema. Calcified left lung nodules and calcified left hilar and mediastinal lymph nodes are consistent with old granulomatous disease. There is 14 degrees dextroscol iosis of thoracic spine. There is kyphosis of thoracic spine. There is a chronic compression fracture of T1 with 2/5 loss of height. There are compression fractures of T3 and T4 with up to 1/5 loss of h eight. There is mildly decreased disc height from T4-T5 and T5-T6, moderately decreased disc height a t T6-T7 and T7-T8, mildly decreased disc height at T8-T9, T9-T10, and T10-T11, and severely decreased disc height at T11-T12. There are endplate osteophytes at most levels. There is multilevel mild face t joint osteoarthritis. There is mild bilateral neural foraminal stenosis at T2-T3. There is mild hilario tral canal stenosis at T1-T2, T5-T6, T6-T7, T7-T8, and T8-T9. Epidural electrodes are noted. An intra thecal catheter is also noted. CT LUMBAR SPINE: There are changes of partial right nephrectomy. There is 8 degrees levocurvature of lumbar spine. Vertebral body heights are normal. There is mildly decreased disc height at L2-L3 and m oderately decreased disc height at L3-L4. The following disc levels are specifically discussed: L1-L2: The disc is bulging. There is mild bilateral facet joint osteoarthritis. There is mild bilater al neural foraminal stenosis. There is mild central canal stenosis. L2-L3: The disc is bulging. There is moderate bilateral facet joint osteoarthritis. There is mild isabel ateral neural foraminal stenosis. There is mild central canal stenosis. L3-L4: The disc is bulging. There is severe right and moderate left facet joint osteoarthritis. There is mild bilateral neural foraminal stenosis. There is moderate central canal stenosis. L4-L5: The disc is bulging. There is moderate right and mild left facet joint osteoarthritis. There i s mild bilateral neural foraminal stenosis. There is moderate central canal stenosis. L5-S1: The disc is bulging. There is moderate bilateral facet joint osteoarthritis. There is no neura l foraminal stenosis. There is mild central canal stenosis. IMPRESSION: 1. Severe thoracic spondylosis and moderate lumbar spondylosis. 2. Thoracic dextroscoliosis and kyphosis. 3. Age-indeterminate compression fractures of T3 and T4, new from 10/24/2018. Reviewed, dictated and finalized at location A.
== END 2020-02-24 17:55 | disposition home or self-care (01) ==
PROVIDERS: PCP Family Medicine; Visit Provider Nurse Practitioner Family
DX: M47.896 Other spondylosis, lumbar region (principal); M47.894 Other spondylosis, thoracic region
CPT/HCPCS: 72128; 72131

== ENCOUNTER 2020-03-04 13:24 | Emergency (ER) | payer MEDICARE, OTHER, SELFPAY ==
--- NOTE | ~2020-03-04 | CT_ITS ---
EXAMINATION: CT brain wo con DATE: 03/04/2020 15:44 INDICATION: Fall. Posterior vertex pain. Dizziness. History of stroke in 2013. TECHNIQUE: Computed tomography (CT) of the head was performed without intravenous contrast. The mA wa s adjusted according to patient size. Iterative reconstruction technique was employed. Exam dose: 52 9.67 mGy-cm total exam DLP. COMPARISON: 11/06/2019 CT brain FINDINGS: Stable chronic posterior left temporoparietal cerebrovascular accident, unchanged since 10/11. No intracranial mass lesion or hemorrhage, midline shift or mass effect or subdural or epidural hemat lorraine is evident. No interval cerebrovascular accident is detected.. There is bilateral carotid siphon internal carotid artery calcifications. No fracture or bone destruction of the cranial vault. IMPRESSION: Chronic left temporoparietal cerebrovascular accident; no acute intracranial finding Reviewed, dictated and finalized at [facility]. Reviewed, dictated and finalized at [facility]. IMPRESSION: Chronic left temporoparietal cerebrovascular accident; no acute in tracranial finding
[2020-03-04 14:15] VITALS: BP 140/73; PULSE 78; RESP 14; TEMP 36.7; O2SAT 98
[2020-03-04 14:32] LABS: Glucose Point of Care 54 (65-105)
--- NOTE | 2020-03-04 15:08 | ED.FALL ---
HPI - Fall General Chief Complaint: Fall Stated Complaint: fell hit head on door just doesnt feel right Source: patient Mode of arrival: ambulatory Limitations: no limitations History of Present Illness HPI Narrative: 69-year-old with diabetes status post CVA tripped while wearing a slipper at 13:00 today. She fell to her left side hitting her head on the door and her left shoulder and hip on the floor. She was able to get up unassisted and walk without pain. Since then she has had left shoulder and knee pain but is able to ambulate and move them with minimal pain. She complained of not felling right after she fell, which has since resolved. Her CVA deficit was a partial aphasia which has resolved to the point of not being noticeable. She is recovering from osteomyelitis of the left foot which requires dressing changes and not wearing a shoe which presses on the dorsum of the foot, thus the slipper she had on at the time of the fall. Related Data Home Medications Medication Instructions Recorded Confirmed aspirin 81 mg tablet,delayed 81 mg PO BID 06/22/19 03/04/20 release ferrous sulfate 325 mg (65 mg 325 mg PO TID tablet 06/22/19 03/04/20 iron) tablet hydralazine 25 mg tablet 50 mg PO TID 06/22/19 03/04/20 hydrochlorothiazide 25 mg tablet 25 mg PO DAILY 06/22/19 03/04/20 insulin glargine 100 unit/mL 20 unit SUB-Q BID ml 06/22/19 03/04/20 subcutaneous solution montelukast 10 mg tablet 10 mg PO DAILY 06/22/19 03/04/20 cyanocobalamin (vitamin B-12) 1,000 mcg PO DAILY 10/19/19 03/04/20 [Vitamin B-12] metformin 1,000 mg PO BID 12/26/19 03/04/20 omega-3 acid ethyl esters [Lovaza] 1 cap PO BID 12/26/19 03/04/20 valsartan [Diovan] 40 mg PO BID 12/26/19 03/04/20 Allergies Allergy/AdvReac Type Severity Reaction Status Date / Time oxybutynin Allergy Intermediate PROBLEMS Verified 10/26/19 13:35 BREATHING bupropion Allergy Unknown Nervousness Verified 10/26/19 13:35 cephalexin Allergy Unknown unknown Verified 10/26/19 13:35 fexofenadine Allergy Unknown UPPER RESP Verified 10/26/19 13:35 INFECTION lisinopril Allergy Unknown TONGUE Verified 10/26/19 13:35 Swelling paroxetine Allergy Unknown NIGHT Verified 10/26/19 13:35 SWEATS tizanidine Allergy Unknown blurred Verified 10/26/19 13:35 vision trimethoprim Allergy Unknown Unknown Verified 10/26/19 13:35 Review of Systems Constitutional: Constitutional: Denies chills, Denies fever(s) and Denies weakness Cardiovascular: Cardiovascular: Denies chest pain and Denies rapid heart rate Respiratory: Respiratory: Denies dyspnea Gastrointestinal: Gastrointestinal: Denies diarrhea, Denies nausea and Denies vomiting Musculoskeletal: Musculoskeletal: Reports no additional musculoskeletal complaints Integumentary/Breasts: Skin/Breast: Reports system reviewed and no additional complaints, except as docu [facility] Past Medical History Medical History Anemia Anxiety Chronic kidney disease CVA (cerebral vascular accident) Diabetes type 2, controlled Diverticulosis Dyslipidemia Hypertension Kidney malignant neoplasm Right femoral fracture Right patella fracture Sleep apnea Vitamin B12 deficiency Surgical History Surgical History History of laparotomy History of total right hip arthroplasty Hx of cholecystectomy Previous back surgery Family History Family History Father Family history of coronary artery disease Family history of heart disease in male family member before age 55 Cerebrovascular accident Sibling Family history of coronary artery disease Mother Family history of obesity Other Depression Diabetes mellitus Family history of cardiovascular disease Family history of glaucoma Hypertension Social History Social History (Reviewed 03/05/20 @ 07:55 by Laith Ochoa,
[2020-03-04 15:27] LABS: Glucose Point of Care 110 (65-105)
[2020-03-04 17:28] VITALS: BP 123/67; PULSE 65; RESP 13; O2SAT 99
== END 2020-03-04 17:28 | disposition home or self-care (01) ==
PROVIDERS: Emergency Provider Family Medicine; PCP Family Medicine
DX: S00.93XA Contusion of unspecified part of head, initial encounter (principal); S80.02XA Contusion of left knee, initial encounter; S40.012A Contusion of left shoulder, initial encounter; W01.198A Fall on same level from slipping, tripping and stumbling with subsequent striking against other object, initial encounter
CPT/HCPCS: 70450; 99282; 99284

== ENCOUNTER 2020-04-14 09:42 | Outpatient (CLI) | payer MEDICARE, SELFPAY ==
[2020-04-14 09:58] LABS: Hematocrit 37.8 % (35.0-42.0); Hemoglobin 11.5 g/dL (11.7-13.8); Mean Corpuscular HGB Conc 30.4 g/dL (32.0-36.0); Mean Corpuscular Hemoglobin 24.5 pg (27.0-31.0); Mean Corpuscular Volume 80.6 fL (78.0-102.0); Mean Platelet Volume 10.5 fl (9.2-11.8); Platelet Count Result 208 K/mm3 (150-420); Red Blood Count 4.69 M/mm3 (4.20-5.40); White Blood Count 8.6 K/mm3 (4.8-10.8)
[2020-04-14 10:12] LABS: Hemoglobin A1C 7.2 % (<5.7)
[2020-04-14 11:10] LABS: Alanine Aminotransferase 21 U/L (14-59); Albumin Level 3.6 g/dL (3.4-5.0); Alkaline Phosphatase 94 U/L (46-116); Anion Gap 4 mmol/L (8-16); Aspartate Amino Transferase 14 U/L (15-37); Bilirubin,Total 0.3 mg/dL (0.00-1.00); Blood Urea Nitrogen 19 mg/dL (7-18); Carbon Dioxide 34 mmol/L (21-32); Chloride 100 mmol/L (98-108); Cholesterol 130 mg/dL (0-200); Estimated Glomerular Filt Rate 59; Ferritin 70 ng/mL (8-252); Glucose 84 mg/dL (70-99); HDL Direct 39 mg/dL (40-60); Iron 37 ug/dL (50-170); LDL Cholesterol Calculated 66 mg/dL (<130); Osmolality Calculated 287 mOsm/kg (285-295); Percent Iron Saturation 15 % (12-57); Potassium 4.4 mmol/L (3.5-5.1); Sodium 138 mmol/L (136-145); Total Protein 7.1 g/dL (6.4-8.2); Triglycerides 127 mg/dL (0-150); Vitamin B12 1732 pg/mL (193-986)
[2020-04-14 11:26] LABS: Folic Acid > 20.0 ng/mL (8.6->20)
== END 2020-04-14 09:43 | disposition home or self-care (01) ==
LOC: CHSLAB 09:45
PROVIDERS: PCP Family Medicine; Visit Provider Internal Medicine Hematology & Oncology
DX: D50.9 Iron deficiency anemia, unspecified (principal); E11.9 Type 2 diabetes mellitus without complications; E78.2 Mixed hyperlipidemia
CPT/HCPCS: 36415; 80053; 80061; 82607; 82728; 82746; 83036; 83540; 83550; 85025

== ENCOUNTER 2020-05-03 15:44 | Outpatient (CLI) | payer MEDICARE, OTHER, SELFPAY ==
--- NOTE | ~2020-05-03 | XR_ITS ---
EXAMINATION: XR toe 1st LT min 2V DATE: 05/03/2020 16:58 INDICATION: Left great toe pain and swelling. TECHNIQUE: 4 views of left great toe were obtained. COMPARISON: Left foot radiographs 02/11/2020, left great toe radiographs 12/09/2019, 10/22/2019 FINDINGS: Bone alignment is normal. No fracture. There is an erosion of medial aspect of head and nec k of first proximal phalanx with some interval healing. There has been interval development of a larg e osteophyte at the medial base of first distal phalanx where there was a bone erosion on the prior i maging. There is mild osteoarthritis of first interphalangeal joint and first metacarpophalangeal jose maria nt. IMPRESSION: 1. Healing erosion at medial aspect of head and neck of first proximal phalanx, consistent with osteo myelitis. Reviewed, dictated and finalized at [facility]. IMPRESSION: 1. Healing erosion at medial aspect of head and neck of first proximal phalanx, consistent with osteomyelitis.
== END 2020-05-03 15:45 | disposition home or self-care (01) ==
PROVIDERS: PCP Family Medicine; Visit Provider Internal Medicine Infectious Disease
DX: M86.179 Other acute osteomyelitis, unspecified ankle and foot (principal)
CPT/HCPCS: 73660

== ENCOUNTER 2020-05-22 14:25 | Emergency (ER) | payer MEDICARE, OTHER, SELFPAY ==
[2020-05-22 14:30] VITALS: BP 122/71; PULSE 78; RESP 20; TEMP 36.2; O2SAT 97
--- NOTE | 2020-05-22 14:47 | ED.SKABFB ---
HPI - Skin/Abscess/Foreign Bdy General Chief complaint: Skin/Abscess/Foreign Body Stated complaint: cut finger Source: patient Mode of arrival: ambulatory Limitations: no limitations History of Present Illness HPI narrative: Pt has a burn to her finger and was cutting away some skin and eneded up cutting too deep. She has an area in the middle of the old wound and has had troubles getting it to stop bleeding. She has been holding pressure and trying different things to get wound to quit bleeding, including tournaquet, rubber bands etc complaint: lesion Location: L hand Severity scale (1-10): 1 Relieving factors: none Exacerbating factors: none Context: none Treatments prior to arrival: bandages Related Data Home Medications Medication Instructions Recorded Confirmed aspirin 81 mg tablet,delayed 81 mg PO BID 06/22/19 04/25/20 release ferrous sulfate 325 mg (65 mg 325 mg PO TID tablet 06/22/19 04/25/20 iron) tablet insulin glargine 100 unit/mL 20 unit SUB-Q BID ml 06/22/19 04/25/20 subcutaneous solution cyanocobalamin (vitamin B-12) 1,000 mcg PO DAILY 10/19/19 04/25/20 [Vitamin B-12] omega-3 acid ethyl esters [Lovaza] 1 cap PO BID 12/26/19 04/25/20 Allergies Allergy/AdvReac Type Severity Reaction Status Date / Time oxybutynin Allergy Intermediate PROBLEMS Verified 04/25/20 14:16 BREATHING bupropion Allergy Unknown Nervousness Verified 04/25/20 14:16 cephalexin Allergy Unknown unknown Verified 04/25/20 14:16 fexofenadine Allergy Unknown UPPER RESP Verified 04/25/20 14:16 INFECTION lisinopril Allergy Unknown TONGUE Verified 04/25/20 14:16 Swelling paroxetine Allergy Unknown NIGHT Verified 04/25/20 14:16 SWEATS tizanidine Allergy Unknown blurred Verified 04/25/20 14:16 vision trimethoprim Allergy Unknown Unknown Verified 04/25/20 14:16 Review of Systems Review of Systems: All systems reviewed & are unremarkable except as noted in HPI and below PMFSH Past Medical History Medical History (Updated 05/22/20 @ 14:53 by Iman Reyes MD) Anemia Anxiety Chronic kidney disease CVA (cerebral vascular accident) Diabetes type 2, controlled Diverticulosis Dyslipidemia Hypertension Kidney malignant neoplasm Right femoral fracture Right patella fracture Sleep apnea Vitamin B12 deficiency Surgical History Surgical History History of laparotomy History of total right hip arthroplasty Hx of cholecystectomy Previous back surgery Family History Family History Father Family history of coronary artery disease Family history of heart disease in male family member before age 55 Cerebrovascular accident Sibling Family history of coronary artery disease Mother Family history of obesity Other Depression Diabetes mellitus Family history of cardiovascular disease Family history of glaucoma Hypertension Social History Social History Smoking packs per day: 1.5 Smoking cigarettes per day: 30.0 Years smoked: 44 Smoking pack-years: 66.00 Smoking status: Former smoker Tobacco type: cigarettes Second hand tobacco smoke exposure: No Smoking end date: 06/12/05 Alcohol intake: never Substance use: never Substance use type: does not use Gender identity (if verbalized by the patient): Female Exam Const: General: no acute distress Nutritional Appearance: well nourished Orientation/consciousness: patient oriented x3 HENMT: Head: normal to inspection Neck: Neck: normal visual inspection Chest: Chest palpation & inspection: normal inspection of the chest Resp: Effort & Inspection: normal respiratory effort GI: GI Palp: Yes Soft to palpation and No Tenderness to palpation present (GI) Skin: General skin exam: normal color Other: no active bleeding at this ti
--- NOTE | 2020-05-22 14:55 | PC.NURSE ---
surgicel applied to area per dr hodges
[2020-05-22] MEDS: TETANUS,DIPHTHERIA,AC PERTUSSIS ADULT 0.5 ML (ADACEL) IM (15:00)
--- NOTE | 2020-05-22 15:06 | PC.NURSE ---
1500 TUBEX GAUZE DRESSING APPLIED TO LEFT 3RD DIGIT, INSTRUCTIONS GIVEN PER DR PRUITT.
== END 2020-05-22 15:07 | disposition home or self-care (01) ==
PROVIDERS: Emergency Provider Emergency Medicine; PCP Family Medicine
DX: R58 Hemorrhage, not elsewhere classified (principal)
CPT/HCPCS: 90471; 90715; 99281; 99282

== ENCOUNTER 2020-06-01 07:52 | Outpatient (RCR) | payer MEDICARE, OTHER, SELFPAY ==
[2020-06-01 08:10] VITALS: BMI 26.1
== END 2020-07-20 13:23 | disposition home or self-care (01) ==
LOC: ANHWOC 07:52
PROVIDERS: PCP Family Medicine; Visit Provider Nurse Practitioner Family
DX: S81.801D Unspecified open wound, right lower leg, subsequent encounter (principal); E11.9 Type 2 diabetes mellitus without complications; Z79.4 Long term (current) use of insulin
CPT/HCPCS: 99212; A9270; G0463

== ENCOUNTER 2020-06-06 21:09 | Emergency (ER) | payer MEDICARE, OTHER, SELFPAY ==
[2020-06-06 21:10] VITALS: BP 143/61; PULSE 86; RESP 16; TEMP 36.8; O2SAT 98
--- NOTE | 2020-06-06 21:34 | ED.UPPEXIN ---
HPI - Extremity Injury (Upper) General Chief Complaint: Extremity Injury, Upper Stated Complaint: fingernail discoloring/nail seperating from finger Source: patient Mode of arrival: ambulatory Limitations: no limitations History of Present Illness HPI narrative: this is a 69-year-old female that presents with some lesion under her fingernail on her 3rd left finger she inadvertently fell and caused injury to the nail of her left 3rd finger under the nail bed and she has been putting betamethasone on the lesion. Also there is a callus that she has been picking at and cutting away at the plantar surface of her distal left 3rd finger. complaint: injury to: left Onset (ago): week(s) Other Extremity Injury: Left: fingers ( Third finger under the nail some crusting) Other injuries: none Handedness: right Place: home Severity: mild Relieving factors: none Exacerbating factors: none Related Data Home Medications Medication Instructions Recorded Confirmed aspirin 81 mg tablet,delayed 81 mg PO BID 06/22/19 06/06/20 release ferrous sulfate 325 mg (65 mg 325 mg PO TID tablet 06/22/19 06/06/20 iron) tablet insulin glargine 100 unit/mL 35 unit SUB-Q BID ml 06/22/19 06/06/20 subcutaneous solution cyanocobalamin (vitamin B-12) 1,000 mcg PO DAILY 10/19/19 06/06/20 [Vitamin B-12] omega-3 acid ethyl esters [Lovaza] 1 cap PO TID 12/26/19 06/06/20 clotrimazole [Clotrimazole 1 applic TOPICAL BID 06/06/20 06/06/20 Anti-Fungal] Allergies Allergy/AdvReac Type Severity Reaction Status Date / Time oxybutynin Allergy Intermediate PROBLEMS Verified 06/02/20 14:11 BREATHING bupropion Allergy Unknown Nervousness Verified 06/02/20 14:11 cephalexin Allergy Unknown unknown Verified 06/02/20 14:11 fexofenadine Allergy Unknown UPPER RESP Verified 06/02/20 14:11 INFECTION lisinopril Allergy Unknown TONGUE Verified 06/02/20 14:11 Swelling paroxetine Allergy Unknown NIGHT Verified 06/02/20 14:11 SWEATS tizanidine Allergy Unknown blurred Verified 06/02/20 14:11 vision trimethoprim Allergy Unknown Unknown Verified 06/02/20 14:11 Review of Systems Review of Systems: All systems reviewed & are unremarkable except as noted in HPI and below PMFSH Past Medical History Medical History (Updated 06/06/20 @ 21:38 by Anthony Etienne MD) Anemia Anxiety Chronic kidney disease CVA (cerebral vascular accident) Diabetes type 2, controlled Diverticulosis Dyslipidemia Hypertension Kidney malignant neoplasm Right femoral fracture Right patella fracture Sleep apnea Vitamin B12 deficiency Surgical History Surgical History History of laparotomy History of total right hip arthroplasty Hx of cholecystectomy Previous back surgery Family History Family History Father Family history of coronary artery disease Family history of heart disease in male family member before age 55 Cerebrovascular accident Sibling Family history of coronary artery disease Mother Family history of obesity Other Depression Diabetes mellitus Family history of cardiovascular disease Family history of glaucoma Hypertension Social History Social History Smoking packs per day: 1.5 Smoking cigarettes per day: 30.0 Years smoked: 44 Smoking pack-years: 66.00 Smoking status: Former smoker Tobacco type: cigarettes Second hand tobacco smoke exposure: No Smoking end date: 06/12/05 Alcohol intake: never Substance use: never Substance use type: does not use Gender identity (if verbalized by the patient): Female Exam Const: General: no acute distress and alert Orientation/consciousness: patient oriented x3 HENMT: Head: normal to inspection Eyes: Conjunctivae: conjunctivae normal Pupils: Equal, round and reactive pupils present EOM: EO
[2020-06-06 21:46] VITALS: RESP 17
== END 2020-06-06 21:45 | disposition home or self-care (01) ==
PROVIDERS: Emergency Provider Emergency Medicine; PCP Family Medicine
DX: L03.012 Cellulitis of left finger (principal); Z87.891 Personal history of nicotine dependence; E11.9 Type 2 diabetes mellitus without complications; E78.5 Hyperlipidemia, unspecified; I10 Essential (primary) hypertension
CPT/HCPCS: 99283

== ENCOUNTER 2020-06-11 13:42 | Emergency (ER) | payer MEDICARE, OTHER, SELFPAY ==
[2020-06-11 13:59] VITALS: BP 132/62; PULSE 110; RESP 20; TEMP 36.2; O2SAT 95
--- NOTE | 2020-06-11 14:01 | ED.SKABFB ---
HPI - Skin/Abscess/Foreign Bdy General Chief complaint: Skin/Abscess/Foreign Body Stated complaint: hot and sore lump on L forearm Time Seen by Provider: 06/11/20 13:55 History of Present Illness HPI narrative: 64-year-old female patient is here with chief complaints of a bump on her left forearm. Patient states that she noticed it yesterday however she does recall hitting her left arm against the storm door and thinks that she might have hit the area on the wooden frame. She has sustained some skin tears distal to the bump that she is complaining of. She states that it felt warm to touch and she has used some ice and heat. She has not noticed any other discomfort. Patient also has had a recent infection of the left middle finger which has been under care of by her primary care physician and she has an appointment that she is using at home and has not brought it with us. She denies being on any antibiotics. She states that she had some dental work done recently and was on antibiotics approximately a week ago. She denies any fever or chills. She denies any other bumps or pimples or abscesses in on the body. Related Data Home Medications Medication Instructions Recorded Confirmed aspirin 81 mg tablet,delayed 81 mg PO BID 06/22/19 06/06/20 release ferrous sulfate 325 mg (65 mg 325 mg PO TID tablet 06/22/19 06/06/20 iron) tablet insulin glargine 100 unit/mL 35 unit SUB-Q BID ml 06/22/19 06/06/20 subcutaneous solution cyanocobalamin (vitamin B-12) 1,000 mcg PO DAILY 10/19/19 06/06/20 [Vitamin B-12] omega-3 acid ethyl esters [Lovaza] 1 cap PO TID 12/26/19 06/06/20 clotrimazole [Clotrimazole 1 applic TOPICAL BID 06/06/20 06/06/20 Anti-Fungal] Allergies Allergy/AdvReac Type Severity Reaction Status Date / Time oxybutynin Allergy Intermediate PROBLEMS Verified 06/02/20 14:11 BREATHING bupropion Allergy Unknown Nervousness Verified 06/02/20 14:11 cephalexin Allergy Unknown unknown Verified 06/02/20 14:11 fexofenadine Allergy Unknown UPPER RESP Verified 06/02/20 14:11 INFECTION lisinopril Allergy Unknown TONGUE Verified 06/02/20 14:11 Swelling paroxetine Allergy Unknown NIGHT Verified 06/02/20 14:11 SWEATS tizanidine Allergy Unknown blurred Verified 06/02/20 14:11 vision trimethoprim Allergy Unknown Unknown Verified 06/02/20 14:11 Review of Systems Review of Systems: All systems reviewed & are unremarkable except as noted in HPI and below PMFSH Past Medical History Medical History (Updated 06/11/20 @ 14:16 by Etta Newton MD) Anemia Anxiety Chronic kidney disease CVA (cerebral vascular accident) Diabetes type 2, controlled Diverticulosis Dyslipidemia Hypertension Kidney malignant neoplasm Right femoral fracture Right patella fracture Sleep apnea Vitamin B12 deficiency Surgical History Surgical History History of laparotomy History of total right hip arthroplasty Hx of cholecystectomy Previous back surgery Family History Family History Father Family history of coronary artery disease Family history of heart disease in male family member before age 55 Cerebrovascular accident Sibling Family history of coronary artery disease Mother Family history of obesity Other Depression Diabetes mellitus Family history of cardiovascular disease Family history of glaucoma Hypertension Social History Social History Smoking packs per day: 1.5 Smoking cigarettes per day: 30.0 Years smoked: 44 Smoking pack-years: 66.00 Smoking status: Former smoker Tobacco type: cigarettes Second hand tobacco smoke exposure: No Smoking end date: 06/12/05 Alcohol intake: never Substance use: never Substance use type: does not use Gender identity (if verbalized by the patient): Female Exam Narrative: E
[2020-06-11 14:26] VITALS: PULSE 100; RESP 20; O2SAT 96
== END 2020-06-11 14:28 | disposition home or self-care (01) ==
PROVIDERS: Emergency Provider Emergency Medicine; PCP Family Medicine
DX: S50.12XA Contusion of left forearm, initial encounter (principal); W22.8XXA Striking against or struck by other objects, initial encounter
CPT/HCPCS: 99282

== ENCOUNTER 2020-06-21 13:55 | Outpatient (CLI) | payer MEDICARE, SELFPAY ==
[2020-06-22 18:52] LABS: SARS-CoV-2 RNA PCR Negative
== END 2020-06-21 13:56 | disposition home or self-care (01) ==
PROVIDERS: PCP Family Medicine; Visit Provider Nurse Practitioner Family
DX: Z20.828 Contact with and (suspected) exposure to other viral communicable diseases (principal)
CPT/HCPCS: 87635; C9803; U0003

== ENCOUNTER 2020-08-04 21:09 | Emergency (ER) | payer MEDICARE, OTHER, SELFPAY ==
--- NOTE | ~2020-08-04 | XR_ITS ---
EXAMINATION: XR hip LT 2V w AP pelvis EXAM DATE: 08/04/2020 21:53 INDICATION: Fall, left hip pain/contusion TECHNIQUE: Left hip frontal, 'frog leg' projections for interpretation. Frontal projection pelvis. C omparison is made to prior examination from 11/06/2019. FINDINGS: Smooth left hip femoral head contour, no radiographic evidence of avascular necrosis. Ther e is mild bilateral hip primary osteoarthritis. There are no acute hip or pelvic fractures or disloca tions identified. There is no subcutaneous gas. The soft tissue is unremarkable. There is a right hip gamma nail bridging healed intertrochanteric fracture. Pain management device. IMPRESSION: No acute osseous findings. Reviewed, dictated and finalized at [facility] IMPRESSION: No acute osseous findings.
[2020-08-04 21:15] VITALS: BP 138/63; PULSE 79; RESP 20; TEMP 36.4; O2SAT 97
--- NOTE | 2020-08-04 21:22 | ED.LOWEXIN ---
HPI - Extremity Injury (Lower) General Chief Complaint: Extremity Injury, Lower Stated Complaint: Hip pain Time Seen by Provider: 08/04/20 21:23 Source: patient Mode of arrival: ambulatory Limitations: no limitations History of Present Illness HPI Narrative: 70-year-old woman with a history of back surgery, right hip arthroplasty, and thoracic compression fractures comes in today complaining of intermittent left hip pain that started about a week ago. Patient states that she fell at home landing on her left side. She had immediate significant swelling on her left hip and she has noticed bruising that is since crept down her left leg to her knee. She states he has an occasional twinge of pain but has been ambulating without much difficulty. She states that she has no numbness or tingling. She had no preceding lightheadedness, weakness, palpitations and while she hit her head, she did not lose consciousness. She takes 81 mg of aspirin daily. MD complaint: hip injury Onset (ago): week(s) (1) Injury: Left: hip and thigh Type of Injury: blunt Place: home Severity: mild Relieving factors: rest Exacerbating factors: movement ( occasionally) Context: fall Associated symptoms: swelling and ambulatory Other symptoms: none Treatments prior to arrival: cold therapy Related Data Home Medications Medication Instructions Recorded Confirmed aspirin 81 mg tablet,delayed 81 mg PO BID 06/22/19 08/02/20 release ferrous sulfate 325 mg (65 mg 325 mg PO TID tablet 06/22/19 08/02/20 iron) tablet insulin glargine 100 unit/mL 35 unit SUB-Q BID ml 06/22/19 08/02/20 subcutaneous solution cyanocobalamin (vitamin B-12) 1,000 mcg PO DAILY 10/19/19 08/02/20 [Vitamin B-12] omega-3 acid ethyl esters [Lovaza] 1 cap PO TID 12/26/19 08/02/20 clotrimazole [Clotrimazole 1 applic TOPICAL BID 06/06/20 08/02/20 Anti-Fungal] Allergies Allergy/AdvReac Type Severity Reaction Status Date / Time cephalexin Allergy Intermediate Diarrhea; Verified 07/27/20 10:49 Abdominal Pain oxybutynin Allergy Intermediate PROBLEMS Verified 07/27/20 10:49 BREATHING bupropion Allergy Unknown Nervousness Verified 07/27/20 10:49 fexofenadine Allergy Unknown UPPER RESP Verified 07/27/20 10:49 INFECTION lisinopril Allergy Unknown TONGUE Verified 07/27/20 10:49 Swelling paroxetine Allergy Unknown NIGHT Verified 07/27/20 10:49 SWEATS tizanidine Allergy Unknown blurred Verified 07/27/20 10:49 vision trimethoprim Allergy Unknown Unknown Verified 07/27/20 10:49 Review of Systems Constitutional: Constitutional: Denies chills and Denies fever(s) Cardiovascular: Cardiovascular: Denies chest pain and Denies radiating jaw, neck or arm pain Comments: denies palpitation Respiratory: Respiratory: Denies cough Gastrointestinal: Gastrointestinal: Denies nausea and Denies vomiting Musculoskeletal: Musculoskeletal: Reports as per HPI, Reports back pain ( chronic), Denies arthralgias and Reports joint swelling Integumentary/Breasts: Skin/Breast: Denies pruritus and Denies rash Neurologic: Denies vertigo, Denies dizziness and Denies syncope Hematologic/Lymphatic: Hematologic/Lymphatic: Denies easy bleeding and Denies easy bruising Allergic/Immunologic: Allergic/Immunologic: Denies lip swelling, Denies throat swelling and Denies tongue swelling [facility] Past Medical History Medical History (Updated 08/04/20 @ 22:14 by Laith Houston MD) Anemia Anxiety Chronic kidney disease CVA (cerebral vascular accident) Diabetes type 2, controlled Diverticulosis Dyslipidemia Hypertension Kidney malignant neoplasm Right femoral fracture Right patella fracture Sleep apnea Vitamin B12 deficiency Surgical History Surgical History History of laparotomy History of total right hip arthroplasty Hx of cholecystectomy Previous back surgery Family History Family History (Reviewed 06/11/20
[2020-08-04 21:43] LABS: Basophils Absolute Auto 0.06 K/mm3 (0.00-0.10); Basophils Percent Auto 0.6 % (0.0-1.0); Eosinophils Absolute Auto 0.54 K/mm3 (0.02-0.50); Eosinophils Percent Auto 5.4 % (1.0-6.0); Hemoglobin 10.6 g/dL (11.7-13.8); Immature Granulocyte Absolute 0.05 K/mm3 (0.00-0.00); Immature Granulocyte Percent A 0.5 % (0.0-0.0); Lymphocytes Absolute Auto 1.84 K/mm3 (1.10-4.50); Lymphocytes Percent Auto 18.5 % (18.0-42.0); Mean Corpuscular HGB Conc 31.2 g/dL (32.0-36.0); Mean Corpuscular Hemoglobin 26.5 pg (27.0-31.0); Mean Platelet Volume 10.7 fl (9.2-11.8); Monocytes Absolute Auto 0.75 K/mm3 (0.10-0.90); Monocytes Percent Auto 7.5 % (2.0-11.0); Neutrophils Absolute Auto 6.7 K/mm3 (1.7-7.2); Neutrophils Percent Auto 67.5 % (50.0-70.0); Platelet Count Result 235 K/mm3 (150-420); Red Cell Distribution Width 14.2 % (11.6-14.4)
[2020-08-04 22:58] VITALS: BP 130/68; PULSE 75; RESP 20; TEMP 36.4; O2SAT 98
== END 2020-08-04 22:59 | disposition home or self-care (01) ==
PROVIDERS: Emergency Provider Emergency Medicine; PCP Family Medicine
DX: S70.02XA Contusion of left hip, initial encounter (principal); W19.XXXA Unspecified fall, initial encounter
CPT/HCPCS: 36415; 73502; 85025; 99282; 99283

== ENCOUNTER 2020-08-22 22:17 | Emergency (ER) | payer MEDICARE, OTHER, SELFPAY ==
--- NOTE | ~2020-08-22 | XR_ITS ---
EXAMINATION: XR abdomen/kub 1V DATE: 08/22/2020 23:49 INDICATION: Vomiting TECHNIQUE: A supine view of the abdomen on 2 radiographs was obtained. COMPARISON: 11/28/2016 FINDINGS: Stool and small amount of gas scattered throughout the colon. No dilated loops of gas-filled bowel to suggest obstruction. Cholecystectomy clips in the right upper quadrant. Additional surgical clips in the left upper quadrant. There are a pair of epidural electrodes extending from a pars spine the rig ht lower quadrant, cephalad along the lower thoracic spine with distal tips beyond the cephalad yvon n of the [id number]. There is also an intrathecal pain pump in the right lower quadrant with humberto ter also extending cephalad into the lower thoracic spine with distal tip at the level of T10. Multip le splenic calcification is consistent with old granulomatous disease. Old healed intertrochanteric f racture the proximal right femur with antegrade intramedullary zara and femoral neck compression screw fixation.. IMPRESSION: 1. Normal nonobstructive bowel gas pattern. Reviewed, dictated and finalized at location A. O NURSE
[2020-08-22 22:30] VITALS: BP 179/89; PULSE 102; RESP 20; TEMP 37.1; O2SAT 100
[2020-08-22 23:08] LABS: Basophils Absolute Auto 0.06 K/mm3 (0.00-0.10); Basophils Percent Auto 0.8 % (0.0-1.0); Eosinophils Absolute Auto 0.03 K/mm3 (0.02-0.50); Eosinophils Percent Auto 0.4 % (1.0-6.0); Hematocrit 41.6 % (35.0-42.0); Hemoglobin 13.2 g/dL (11.7-13.8); Immature Granulocyte Absolute 0.03 K/mm3 (0.00-0.00); Immature Granulocyte Percent A 0.4 % (0.0-0.0); Lymphocytes Absolute Auto 1.34 K/mm3 (1.10-4.50); Lymphocytes Percent Auto 18.6 % (18.0-42.0); Mean Corpuscular HGB Conc 31.7 g/dL (32.0-36.0); Mean Corpuscular Hemoglobin 25.9 pg (27.0-31.0); Mean Corpuscular Volume 81.7 fL (78.0-102.0); Mean Platelet Volume 10.4 fl (9.2-11.8); Monocytes Absolute Auto 0.44 K/mm3 (0.10-0.90); Monocytes Percent Auto 6.1 % (2.0-11.0); Neutrophils Absolute Auto 5.3 K/mm3 (1.7-7.2); Neutrophils Percent Auto 73.7 % (50.0-70.0); Platelet Count Result 278 K/mm3 (150-420); Red Blood Count 5.09 M/mm3 (4.20-5.40); White Blood Count 7.2 K/mm3 (4.8-10.8)
[2020-08-22] MEDS: SODIUM CHLORIDE 0.9% IV 1,000 ML 999 ML IV CONT (23:10)
[2020-08-22 23:11] LABS: Appearance Urine Clear (Clear); Bilirubin Urine 2+ (Negative); Color Urine Yellow (Yellow); Glucose Urine UA 3+ (Negative); Ketones Urine 3+ (Negative); Leukocyte Esterase Ur Negative LEU/UL (Negative); Nitrate Urine Negative (Negative); Protein Urine 1+ (Negative); Specific Grav Ur >= 1.030 (1.010-1.020); Urobilinogen Urine 0.2 mg/dL (0.2-1.0); pH Urine 5.5 (5.0-8.0)
[2020-08-22 23:16] LABS: Add Urine Microscopic? YES; Bacteria Urine Trace /hpf; Blood Urine Trace-Intact (Negative); Squamous Epithelial Cell Urine Rare /hpf (Few); WBC Urine 0-3 /hpf (0-3)
[2020-08-22 23:24] LABS: Alanine Aminotransferase 26 U/L (14-59); Alkaline Phosphatase 115 U/L (46-116); Anion Gap 11 mmol/L (8-16); Aspartate Amino Transferase 16 U/L (15-37); Bilirubin,Total 0.7 mg/dL (0.00-1.00); Blood Urea Nitrogen 26 mg/dL (7-18); CRP 1.1 mg/dL (0.0-0.9); Calcium 9.5 mg/dL (8.5-10.1); Carbon Dioxide 28 mmol/L (21-32); Chloride 95 mmol/L (98-108); Estimated CRCL calculation 53 ml/min; Estimated Glomerular Filt Rate > 60; Glucose 127 mg/dL (70-99); Osmolality Calculated 284 mOsm/kg (285-295); Potassium 4.3 mmol/L (3.5-5.1); Sodium 134 mmol/L (136-145); Total Protein 8.6 g/dL (6.4-8.2)
--- NOTE | 2020-08-22 23:31 | ED.NAVMDI ---
HPI - Nausea/Vomiting/Diarrhea General Chief complaint: Nausea/Vomiting/Diarrhea Stated complaint: vomiting Source: patient and RN notes reviewed Mode of arrival: wheelchair Limitations: no limitations History of Present Illness MD elicited complaint: vomiting Onset (ago): day(s) (3) Description of vomiting: bilious Associated nausea: Yes Associated abdominal pain: No Severity: moderate Exacerbating factors: eating Relieving factors: none Treatment prior to arrival: fluids Related Data Home Medications Medication Instructions Recorded Confirmed aspirin 81 mg tablet,delayed 81 mg PO BID 06/22/19 08/22/20 release ferrous sulfate 325 mg (65 mg 325 mg PO TID tablet 06/22/19 08/22/20 iron) tablet insulin glargine 100 unit/mL 35 unit SUB-Q BID ml 06/22/19 08/22/20 subcutaneous solution cyanocobalamin (vitamin B-12) 1,000 mcg PO DAILY 10/19/19 08/22/20 [Vitamin B-12] omega-3 acid ethyl esters [Lovaza] 1 cap PO TID 12/26/19 08/22/20 clotrimazole [Clotrimazole 1 applic TOPICAL BID 06/06/20 08/22/20 Anti-Fungal] Allergies Allergy/AdvReac Type Severity Reaction Status Date / Time cephalexin Allergy Intermediate Diarrhea; Verified 07/27/20 10:49 Abdominal Pain oxybutynin Allergy Intermediate PROBLEMS Verified 07/27/20 10:49 BREATHING bupropion Allergy Unknown Nervousness Verified 07/27/20 10:49 fexofenadine Allergy Unknown UPPER RESP Verified 07/27/20 10:49 INFECTION lisinopril Allergy Unknown TONGUE Verified 07/27/20 10:49 Swelling paroxetine Allergy Unknown NIGHT Verified 07/27/20 10:49 SWEATS tizanidine Allergy Unknown blurred Verified 07/27/20 10:49 vision trimethoprim Allergy Unknown Unknown Verified 07/27/20 10:49 Review of Systems Constitutional: Constitutional: Denies chills, Denies fever(s) and Denies weakness Eyes: Eyes: Reports no additional eye complaints Cardiovascular: Cardiovascular: Reports no additional cardiovascular complaints Respiratory: Respiratory: Denies cough and Denies dyspnea Gastrointestinal: Gastrointestinal: Denies bloating and Denies diarrhea Genitourinary: Genitourinary: Reports no additional female genitourinary complaints Musculoskeletal: Musculoskeletal: Reports no additional musculoskeletal complaints Integumentary/Breasts: Skin/Breast: Reports system reviewed and no additional complaints, except as docu PMFSH Past Medical History Medical History Anemia Anxiety Chronic kidney disease CVA (cerebral vascular accident) Diabetes type 2, controlled Diverticulosis Dyslipidemia Hypertension Kidney malignant neoplasm Right femoral fracture Right patella fracture Sleep apnea Vitamin B12 deficiency Surgical History Surgical History History of laparotomy History of total right hip arthroplasty Hx of cholecystectomy Previous back surgery Family History Family History Father Family history of coronary artery disease Family history of heart disease in male family member before age 55 Cerebrovascular accident Sibling Family history of coronary artery disease Mother Family history of obesity Other Depression Diabetes mellitus Family history of cardiovascular disease Family history of glaucoma Hypertension Social History Social History Smoking packs per day: 1.5 Smoking cigarettes per day: 30.0 Years smoked: 44 Smoking pack-years: 66.00 Smoking status: Former smoker Tobacco type: cigarettes Second hand tobacco smoke exposure: No Smoking end date: 06/12/05 Alcohol intake: never Substance use: never Substance use type: does not use Gender identity (if verbalized by the patient): Female Exam Const: General: healthy appearing and no acute distress Nutritional Appearance: wel
[2020-08-22 23:55] VITALS: BP 165/71; PULSE 83; RESP 20; O2SAT 100
[2020-08-23] MEDS: ONDANSETRON INJ 4 MG/2 ML VIAL IV PUSH (00:27)
[2020-08-23 00:29] VITALS: BP 160/70; PULSE 90; RESP 20; O2SAT 99
== END 2020-08-23 00:38 | disposition home or self-care (01) ==
PROVIDERS: Emergency Provider Emergency Medicine; PCP Family Medicine
DX: A08.4 Viral intestinal infection, unspecified (principal)
CPT/HCPCS: 36415; 74018; 80053; 81001; 84153; 85025; 86140; 96361; 96374; 99283; 99284; J2405; J7030

== ENCOUNTER 2020-09-08 09:05 | Outpatient (CLI) | payer MEDICARE, OTHER, SELFPAY ==
--- NOTE | 2020-09-08 11:30 | NEURO_ITS ---
Impression: # Complains of numbness of hands. # Bilateral Carpal Tunnel Syndrome. # Left ulnar neuropathy across the elbow. # Abnormal needle/EMG exam. # Clinical correlation recommended. Nerve Conduction Studies Anti Sensory Summary Table Stim Site NR Peak (ms) P-T Amp (?V) Site1 Site2 Delta-P (ms) Dist (cm) Donell (m/s) Left Median Anti Sensory Run #2 (2-3nd Digit) Wrist 5.7 16.0 Wrist 2-3nd Digit 5.7 14.0 25 Wrist 5.3 7.7 Wrist 2-3nd Digit 5.7 14.0 25 Right Median Anti Sensory (2-3nd Digit) Wrist 5.4 6.9 Wrist 2-3nd Digit 5.4 14.0 26 Wrist 5.3 3.6 Wrist 2-3nd Digit 5.4 14.0 26 Left Radial Anti Sensory (Base 1st Digit) Wrist 2.5 26.1 Wrist Base 1st Digit 2.5 0.0 Right Radial Anti Sensory (Base 1st Digit) Wrist 2.8 16.4 Wrist Base 1st Digit 2.8 0.0 Left Ulnar Anti Sensory (5th Digit) Wrist 3.3 39.9 Wrist 5th Digit 3.3 14.0 42 Right Ulnar Anti Sensory (5th Digit) Wrist 3.4 6.0 Wrist 5th Digit 3.4 14.0 41 Motor Summary Table Stim Site NR Onset (ms) O-P Amp (mV) Site1 Site2 Delta-0 (ms) Dist (cm) Donell (m/s) Left Median Motor (Abd Poll Brev) Wrist 4.5 0.5 Elbow Wrist 5.0 27.0 54 Elbow 9.5 0.2 Right Median Motor (Abd Poll Brev) Wrist 4.6 2.2 Elbow Wrist 5.3 29.0 55 Elbow 9.9 2.2 Left Ulnar Motor (Abd Dig Minimi) Wrist 3.2 7.3 A Elbow Wrist 7.0 30.0 43 A Elbow 10.2 6.0 B Elbow Wrist 4.8 23.0 48 B Elbow 8.0 6.1 Right Ulnar Motor (Abd Dig Minimi) Wrist 3.0 8.3 A Elbow Wrist 5.3 30.0 57 A Elbow 8.3 7.0 F Wave Studies NR F-Lat (ms) L-R F-Lat (ms) Left Median (Mrkrs) (Abd Poll Brev) 32.41 0.57 Right Median (Mrkrs) (Abd Poll Brev) 31.83 0.57 Left Ulnar (Mrkrs) (Abd Dig Min) 31.88 1.20 Right Ulnar (Mrkrs) (Abd Dig Min) 30.68 1.20 EMG Side Muscle Nerve Root Ins Act Fibs Amp Dur Recrt Comment Right 1stDorInt Ulnar C8-T1 Nml Nml Nml Nml Nml Right Ext Indicis Radial (Post Int) C7-8 Nml Nml Nml Nml Nml Right Ext Digitorum Radial (Post Int) C7-8 Nml Nml Nml Nml Nml Right BrachioRad Radial C5-6 Nml Nml Nml Nml Nml Right PronatorTeres Median C6-7 Nml Nml Nml Nml Nml Right Abd Poll Brev Median C8-T1 Nml Nml Nml >12ms Reduced Left 1stDorInt Ulnar C8-T1 Nml Nml Nml Nml Nml Left Ext Indicis Radial (Post Int) C7-8 Nml Nml Nml Nml Nml Left Ext Digitorum Radial (Post Int) C7-8 Nml Nml Nml Nml Nml Left BrachioRad Radial C5-6 Nml Nml Nml Nml Nml Left PronatorTeres Median C6-7 Nml Nml Nml Nml Nml Left Abd Poll Brev Median C8-T1 Nml Nml Nml >12ms Reduced MTDD
== END 2020-09-08 09:06 | disposition home or self-care (01) ==
PROVIDERS: PCP Family Medicine; Visit Provider Family Medicine
DX: G56.03 Carpal tunnel syndrome, bilateral upper limbs (principal); G56.22 Lesion of ulnar nerve, left upper limb
CPT/HCPCS: 95886; 95911

== ENCOUNTER 2020-10-03 12:14 | Emergency (ER) | payer MEDICARE, OTHER, SELFPAY ==
--- NOTE | ~2020-10-03 | US_ITS ---
EXAMINATION: US venous doppler LE RT EXAM DATE: 10/03/2020 14:59 INDICATION: Right leg swelling, pain. TECHNIQUE: Multiple grayscale, color flow and Doppler images of the right lower extremity deep venous system were obtained and reviewed. Comparison is made to prior examination from 09/16/2017. FINDINGS: The right common femoral, femoral and profunda veins demonstrate normal color flow, respira tory variation, augmentation and compressibility. Compressibility, color flow confirmed within the r ight popliteal, posterior tibial, peroneal, and greater saphenous veins. IMPRESSION: 1. No right lower extremity deep venous thrombosis. Reviewed, dictated and finalized at location B. NICS INSTALLER
[2020-10-03 12:31] VITALS: BP 140/81; PULSE 97; RESP 18; TEMP 36.6; O2SAT 98
--- NOTE | 2020-10-03 12:32 | ED.LOWEXIN ---
HPI - Extremity Injury (Lower) General Chief Complaint: Extremity Injury, Lower Stated Complaint: Toe infection/swelling in leg Time Seen by Provider: 10/03/20 12:32 Source: patient and RN notes reviewed Mode of arrival: ambulatory Limitations: no limitations History of Present Illness HPI Narrative: patient has a history of poor circulation in her lower extremities and is currently seeing a electronic commerce specialist. She is post to see the wound care clinic tomorrow. She began having some redness in her right lower extremity yesterday and has some drainage from a trimmed callus. The drainage has been clear sometimes little pink tinged on the gauze. No fever or chills. complaint: leg injury Onset (ago): day(s) (1) Injury: Right: toes (2nd) Type of Injury: other (no injury) Place: home Severity: moderate Exacerbating factors: weight bearing Other symptoms: none Treatments prior to arrival: bandage Related Data Home Medications Medication Instructions Recorded Confirmed aspirin 81 mg tablet,delayed 81 mg PO BID 06/22/19 10/03/20 release ferrous sulfate 325 mg (65 mg 325 mg PO TID tablet 06/22/19 10/03/20 iron) tablet insulin glargine 100 unit/mL 35 unit SUB-Q BID ml 06/22/19 10/03/20 subcutaneous solution cyanocobalamin (vitamin B-12) 1,000 mcg PO DAILY 10/19/19 10/03/20 [Vitamin B-12] omega-3 acid ethyl esters [Lovaza] 1 cap PO TID 12/26/19 10/03/20 clotrimazole [Clotrimazole 1 applic TOPICAL BID 06/06/20 10/03/20 Anti-Fungal] Allergies Allergy/AdvReac Type Severity Reaction Status Date / Time cephalexin Allergy Intermediate Diarrhea; Verified 10/03/20 12:35 Abdominal Pain oxybutynin Allergy Intermediate PROBLEMS Verified 10/03/20 12:35 BREATHING bupropion Allergy Unknown Nervousness Verified 10/03/20 12:35 fexofenadine Allergy Unknown UPPER RESP Verified 10/03/20 12:35 INFECTION lisinopril Allergy Unknown TONGUE Verified 10/03/20 12:35 Swelling paroxetine Allergy Unknown NIGHT Verified 10/03/20 12:35 SWEATS tizanidine Allergy Unknown blurred Verified 10/03/20 12:35 vision trimethoprim Allergy Unknown Unknown Verified 10/03/20 12:35 Review of Systems Review of Systems: All systems reviewed & are unremarkable except as noted in HPI and below Constitutional: Constitutional: Denies chills and Denies fever(s) Cardiovascular: Cardiovascular: Reports no additional cardiovascular complaints Respiratory: Respiratory: Reports no additional respiratory complaints Gastrointestinal: Gastrointestinal: Reports no additional gastrointestinal complaints Genitourinary: Genitourinary: Reports no additional female genitourinary complaints Musculoskeletal: Musculoskeletal: Reports no additional musculoskeletal complaints Neurologic: Reports system reviewed and no additional complaints, except as documented Psychiatric: Psychiatric: Reports no additional psychiatric complaints [facility] Past Medical History Medical History (Updated 10/03/20 @ 15:34 by Akira Calderon MD) Anemia Anxiety Chronic kidney disease CVA (cerebral vascular accident) Diabetes type 2, controlled Diverticulosis Dyslipidemia Hypertension Kidney malignant neoplasm Right femoral fracture Right patella fracture Sleep apnea Vitamin B12 deficiency Surgical History Surgical History History of laparotomy History of total right hip arthroplasty Hx of cholecystectomy Previous back surgery Family History Family History Father Family history of coronary artery disease Family history of heart disease in male family member before age 55 Cerebrovascular accident Sibling Family history of coronary artery disease Mother Family history of obesity Other Depression Diabetes mellitus Family history of cardiovascular disease Family history of glaucoma Hypertension Social History Socia
[2020-10-03 13:29] LABS: Basophils Absolute Auto 0.07 K/mm3 (0.00-0.10); Eosinophils Absolute Auto 0.36 K/mm3 (0.02-0.50); Eosinophils Percent Auto 4.9 % (1.0-6.0); Hematocrit 32.7 % (35.0-42.0); Hemoglobin 10.2 g/dL (11.7-13.8); Immature Granulocyte Absolute 0.02 K/mm3 (0.00-0.00); Immature Granulocyte Percent A 0.3 % (0.0-0.0); Lymphocytes Absolute Auto 1.08 K/mm3 (1.10-4.50); Lymphocytes Percent Auto 14.7 % (18.0-42.0); Mean Corpuscular HGB Conc 31.2 g/dL (32.0-36.0); Mean Corpuscular Volume 83.2 fL (78.0-102.0); Monocytes Absolute Auto 0.63 K/mm3 (0.10-0.90); Monocytes Percent Auto 8.6 % (2.0-11.0); Neutrophils Absolute Auto 5.2 K/mm3 (1.7-7.2); Neutrophils Percent Auto 70.5 % (50.0-70.0); Platelet Count Result 181 K/mm3 (150-420); Red Blood Count 3.93 M/mm3 (4.20-5.40); Red Cell Distribution Width 13.6 % (11.6-14.4); White Blood Count 7.3 K/mm3 (4.8-10.8)
[2020-10-03 13:39] LABS: Anion Gap 9 mmol/L (8-16); Blood Urea Nitrogen 15 mg/dL (7-18); Calcium 8.6 mg/dL (8.5-10.1); Carbon Dioxide 31 mmol/L (21-32); Chloride 101 mmol/L (98-108); Estimated Glomerular Filt Rate > 60; Glucose 191 mg/dL (70-99); Osmolality Calculated 297 mOsm/kg (285-295); Sodium 141 mmol/L (136-145)
[2020-10-03 13:45] LABS: D Dimer 1.12 mg/L (0.19-0.50)
[2020-10-03 14:31] LABS: Erythrocyte Sedimentation Rate 54 mm/hr (0-20)
[2020-10-03 15:07] VITALS: BP 132/81; PULSE 88; RESP 18; TEMP 36.7; O2SAT 97
[2020-10-03 15:45] VITALS: BP 129/88; PULSE 74; RESP 18; TEMP 36.6; O2SAT 99
[2020-10-03] MEDS: CLINDAMYCIN HCL 150 MG CAP 300 MG PO (15:45)
== END 2020-10-03 15:47 | disposition home or self-care (01) ==
PROVIDERS: Emergency Provider Emergency Medicine; PCP Family Medicine
DX: L03.115 Cellulitis of right lower limb (principal); M79.89 Other specified soft tissue disorders; N18.9 Chronic kidney disease, unspecified; E11.9 Type 2 diabetes mellitus without complications; E78.5 Hyperlipidemia, unspecified; I10 Essential (primary) hypertension; E53.8 Deficiency of other specified B group vitamins; Z87.891 Personal history of nicotine dependence
CPT/HCPCS: 36415; 80048; 85025; 85380; 85652; 86140; 87040; 93971; 99283; 99284; A9270

== ENCOUNTER 2020-10-04 07:27 | Outpatient (RCR) | payer MEDICARE, OTHER, SELFPAY ==
--- NOTE | ~2020-10-04 | XR_ITS ---
XR toe 2nd RT min 2V DATE: 10/04/2020 14:02 INDICATION: Erythema, warmth, erythema right second toe TECHNIQUE: 5 views COMPARISON: 10/19/2018 right foot FINDINGS: There is prominent soft tissue swelling of the second digit. There is flexion deformity at the proximal interphalangeal joint. There appears to be some chronic attenuation of the tuft of the distal phalanx, with relatively jesse h margins. There was soft tissue swelling of the second digit and evidence of some defect of the distal phalange al tuft on 10/28/2018. If there is concern for osteomyelitis, consider three-phase radionuclide bone s can. IMPRESSION: Prominent soft tissue swelling Probable chronic deformity of the tuft of the distal phalanx If there is concern for osteomyelitis, consider three-phase radionuclide bone scan Reviewed, dictated and finalized at location A. STOCKER IMPRESSION: Prominent soft tissue swelling Probable chronic deformity of the tuft of the distal phalanx If there is concern for osteomyelitis, consider three-phase radionuclide bone s can
--- NOTE | 2020-10-05 09:37 | PCWOUND ---
WOCN NOTE placed call to Dr Price office to follow up with xray results. office to call back if any changes in care needed.
== END 2020-10-31 23:59 | disposition home or self-care (01) ==
LOC: ANHWOC 07:27
PROVIDERS: PCP Family Medicine; Visit Provider Family Medicine
DX: L97.919 Non-pressure chronic ulcer of unspecified part of right lower leg with unspecified severity (principal); L97.929 Non-pressure chronic ulcer of unspecified part of left lower leg with unspecified severity
CPT/HCPCS: 73660; 99212; G0463

== ENCOUNTER 2020-10-17 08:51 | Outpatient (CLI) | payer MEDICARE, SELFPAY ==
[2020-10-17 09:08] LABS: Basophils Absolute Auto 0.07 K/mm3 (0.00-0.10); Basophils Percent Auto 0.9 % (0.0-1.0); Eosinophils Absolute Auto 0.63 K/mm3 (0.02-0.50); Eosinophils Percent Auto 8.4 % (1.0-6.0); Hematocrit 35.9 % (35.0-42.0); Hemoglobin 11.1 g/dL (11.7-13.8); Immature Granulocyte Absolute 0.04 K/mm3 (0.00-0.00); Immature Granulocyte Percent A 0.5 % (0.0-0.0); Lymphocytes Absolute Auto 1.59 K/mm3 (1.10-4.50); Lymphocytes Percent Auto 21.3 % (18.0-42.0); Mean Corpuscular HGB Conc 30.9 g/dL (32.0-36.0); Mean Corpuscular Hemoglobin 25.7 pg (27.0-31.0); Mean Corpuscular Volume 83.1 fL (78.0-102.0); Mean Platelet Volume 10.6 fl (9.2-11.8); Monocytes Absolute Auto 0.85 K/mm3 (0.10-0.90); Monocytes Percent Auto 11.4 % (2.0-11.0); Neutrophils Absolute Auto 4.3 K/mm3 (1.7-7.2); Neutrophils Percent Auto 57.5 % (50.0-70.0); Platelet Count Result 228 K/mm3 (150-420); Red Blood Count 4.32 M/mm3 (4.20-5.40); Red Cell Distribution Width 13.7 % (11.6-14.4); White Blood Count 7.5 K/mm3 (4.8-10.8)
[2020-10-17 10:40] LABS: Anion Gap 6 mmol/L (8-16); Blood Urea Nitrogen 22 mg/dL (7-18); Calcium 9.1 mg/dL (8.5-10.1); Carbon Dioxide 33 mmol/L (21-32); Chloride 100 mmol/L (98-108); Estimated Glomerular Filt Rate 56; Ferritin 99 ng/mL (8-252); Glucose 85 mg/dL (70-99); Iron 44 ug/dL (50-170); Osmolality Calculated 290 mOsm/kg (285-295); Percent Iron Saturation 19 % (12-57); Sodium 139 mmol/L (136-145); Vitamin B12 464 pg/mL (193-986)
[2020-10-17 10:52] LABS: Folic Acid > 20.0 ng/mL (8.6->20)
== END 2020-10-17 08:52 | disposition home or self-care (01) ==
PROVIDERS: PCP Family Medicine; Visit Provider Internal Medicine Hematology & Oncology
DX: D50.9 Iron deficiency anemia, unspecified (principal)
CPT/HCPCS: 36415; 80048; 82607; 82728; 82746; 83540; 83550; 85025

== ENCOUNTER 2020-11-02 15:41 | Outpatient (CLI) | payer MEDICARE, OTHER, SELFPAY ==
--- NOTE | ~2020-11-02 | US_ITS ---
EXAMINATION: US carotid duplex BI DATE: 11/02/2020 16:30 INDICATION: Carotid atherosclerosis with occlusion of the left internal carotid artery TECHNIQUE: Grayscale, color Doppler, and pulsed Doppler images of the cervical carotid arteries were obtained. The degree of vessel stenosis is placed in one of the following categories: normal, <50%, 5 0-69%, >=70% but less than near-occlusion, near-occlusion, or total occlusion. Note that percent sten osis relative to normal distal artery lumen diameter is indirectly measured from velocity measurement s as described by Jeff, et al. Radiology 2003; 229:340-346. COMPARISON: 10/28/2019 FINDINGS: RIGHT: The right common carotid artery (CCA) peak systolic velocity (PSV) is 79 cm/s. The right internal car otid artery (ICA) PSV is 121 cm/s. The right ICA end-diastolic velocity (EDV) is 29 cm/s. The right I CA/CCA PSV ratio is 1.5. Grayscale and color Doppler images yield an estimate of <50% diameter reduct ion from plaque in the ICA. The external carotid artery (ECA) PSV is 163 cm/s. There is antegrade giovanna w in the right vertebral artery. LEFT: The left CCA PSV is 24 cm/s. Again seen is occlusion of the left internal carotid artery with no inte rnal flow on color Doppler and with high resistance waveform in the left common carotid artery. The E CA PSV is 77 cm/s. There is antegrade flow in the left vertebral artery. IMPRESSION: 1. <50% stenosis in the right internal carotid artery. 2. 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 Reviewed, dictated and finalized at location A.
== END 2020-11-02 15:42 | disposition home or self-care (01) ==
PROVIDERS: PCP Family Medicine; Visit Provider Internal Medicine Cardiovascular Disease
DX: I65.23 Occlusion and stenosis of bilateral carotid arteries (principal)
CPT/HCPCS: 93880

== ENCOUNTER 2020-11-09 14:06 | Outpatient (CLI) | payer MEDICARE, OTHER, SELFPAY ==
--- NOTE | ~2020-11-09 | XR_ITS ---
EXAMINATION: XR toe 2nd RT min 2V DATE: 11/09/2020 14:40 INDICATION: Cellulitis of right second toe. TECHNIQUE: 4 views of right second toe were obtained. COMPARISON: Right second toe radiographs 10/04/2020, right foot radiographs 10/18/2018 FINDINGS: Bone alignment is normal. No acute fracture. There is osteolysis of the tuft of second dist al phalanx, which is at least partially chronic. There is mild osteoarthritis of second metatarsophal angeal joint and distal interphalangeal joint. There is soft tissue swelling of the second digit. IMPRESSION: 1. Osteolysis of tuft of second distal phalanx, which may be posttraumatic or secondary to chronic or [id number] osteomyelitis. Reviewed, dictated and finalized at location A. IMPRESSION: 1. Osteolysis of tuft of second distal phalanx, which may be posttraumatic or s econdary to chronic or [id number] osteomyelitis.
== END 2020-11-09 14:07 | disposition home or self-care (01) ==
PROVIDERS: PCP Family Medicine; Visit Provider Family Medicine
DX: M89.571 Osteolysis, right ankle and foot (principal); L03.031 Cellulitis of right toe
CPT/HCPCS: 73660

== ENCOUNTER 2020-11-17 13:58 | Inpatient (IN) | payer MEDICARE, OTHER, SELFPAY ==
--- NOTE | ~2020-11-17 | XR_ITS ---
EXAMINATION: XR chest PICC line EXAM DATE: 11/20/2020 13:59 INDICATION: PICC line placement. Chronic right foot osteomyelitis. TECHNIQUE: Portable AP frontal chest x-ray was obtained. Comparison is made to prior examination from 12/26/2019. FINDINGS: There is a right-sided PICC line with tip projecting over the inferior aspect of the SVC, t he level of the jose. No confluent consolidation, pneumothorax or pleural effusion suspected. Card iomediastinal silhouette is normal. There is aortic arteriosclerosis. There are cholecystectomy clips . Spine stimulator lead tips at mid thoracic level. Possible surgical changes right acromioclavicular joint. IMPRESSION: 1. PICC line in position. 2. No acute cardiopulmonary findings. Reviewed, dictated and finalized at location A.
--- NOTE | ~2020-11-17 | XR_ITS ---
EXAMINATION: XR hand LT 2V EXAM DATE: 11/17/2020 16:41 INDICATION: Cellulitis, left 3rd finger pain and swelling. TECHNIQUE: Frontal and lateral projections of the left hand. Comparison is made to prior examination from 07/30/2016. FINDINGS: There is osteolysis of the left 3rd tuft and most of the shaft of the distal phalanx, most likely sequela of osteomyelitis given history provided. Acro osteolysis from other etiology not radi ographically excludable. Severe swelling of this finger, probably cellulitis. No other osseous erosio ns are identified. There are no acute fractures identified. Probable scapholunate resection. IMPRESSION: 1. Left 3rd distal phalangeal osteolysis, most likely osteomyelitis. 2. Severe 3rd digit swelling, cellulitis. Reviewed, dictated and finalized at location A.
--- NOTE | ~2020-11-17 | CT_ITS ---
EXAMINATION: CT foot RT w con INDICATION: Cellulitis of the right second toe TECHNIQUE: Computed tomographic images of the right foot were obtained after the administration of 10 0 cc of Omnipaque 350 intravenous contrast. The dose-length product (DLP) was 508.67 mGy-cm. Automate d exposure control and iterative reconstruction technique were employed. COMPARISON: Radiographs dated 11/09/2020, 10/04/2020, and 10/18/2018 FINDINGS: There is chronic osteolysis and fragmentation of the tuft of the second distal phalanx. The re is soft tissue swelling of the second toe. No definite abnormal enhancement is identified. There i s mild osteoarthritis of the first metatarsophalangeal joint. IMPRESSION: 1. Soft tissue swelling and chronic osteolysis of the tuft of the second distal phalanx. Given the ch ronic appearance of the finding, this may reflect chronic osteomyelitis, acute on chronic osteomyelit is, or possibly prior trauma. Reviewed, dictated and finalized at location A. IMPRESSION: 1. Soft tissue swelling and chronic osteolysis of the tuft of the second distal phalanx. Given the chronic appearance of the finding, this may reflect chronic osteomyelitis, acute on chronic osteomyelitis, or possibly prior trauma.
--- NOTE | 2020-11-17 11:25 | PC.NURSE ---
This patient, Ce Young, was admitted to Medical Room 342-01. Patient/family oriented to hospital policies and general routines including ID bracelet, bed and alarms, visiting hours, pain management, procedures, bathroom and other care routines, personal items, smoking policy, room service/diet, and visiting hours. Information on how to activate the Rapid Response Team has been discussed. Patient/Family are encouraged to report perceived risks to care and to ask questions if they do not understand what they are told or what they should do.
[2020-11-17 13:33] VITALS: BP 129/51; PULSE 100; RESP 20; TEMP 36.8; O2SAT 100
[2020-11-17 13:34] VITALS: BMI 26.2
--- NOTE | 2020-11-17 14:16 | PM.IMHP ---
H&P: HPI History of Present Illness Date/Time: 11/17/20 14:16 this is a 70-year-old female patient who came from her primary care doctor's office today. Her doctor is Dr. Price. She was seeing the PA there today. The patient was seen by her primary care doctor on 10/12/2020 where she was having infection to her 2nd toe on the right foot. The patient was recently seen in the emergency room prior to that visit the patient was just discharged on clindamycin. The patient chronically goes to the wound care clinic and the nurse there the wound clinic did not like the appearance of that toe and therefore the patient was sent for an x-ray which showed prominent soft tissue swelling. Probable chronic deformity of the tuft of the distal phalanx. the patient was told to continue with the clindamycin as prescribed. At that time the patient continued to have an open sore on that right 2nd toe. Patient was awaiting to schedule an appointment with the cd reactor operator head with the previous referral. It looks like on 10/21/[address] Cotter where she was seen for bilateral carpal tunnel syndrome and left ulnar neuropathy at the elbow and chronic skin wounds of the left little finger. The patient then return back to her primary care doctor's office on 11/09/2020 with wound care for ulcerations to the right lower extremity right 2nd toe. She finished clindamycin weeks ago. Patient stated that her toe has worsened over the last week is became more red and swollen. She had eschar tissue removed from ulcerated at the end of her toe with her last appointment with wound care and still has not followed with Podiatry. Today the primary care doctor sent the patient to be a direct admit at [facility]. He her clindamycin had been extended with her last doctor's visit and her symptoms appear to be worsened. She reported that approximately 2 days ago she removed callus from her 3rd finger on the left and became very red and swollen and tender. Patient stated that she had been cleaning lives with isopropyl alcohol and putting antibiotic ointment on that area. She stated that she head squeeze that area on the finger that was red swollen and she had obtained large amount of thick white material. The patient came to [facility] as a direct admit due to her increasing swelling and redness to the right 2nd toe regardless of outpatient treatment with clindamycin. The patient also developed redness and swelling to her 3rd finger on the left hand which is now swollen and red. The patient has swelling to that 3rd finger and the redness continues up to her left wrist. Chief Complaint: Infection to right 2nd toe and 3rd finger on the left Review of Systems Review of Systems: All systems reviewed & are unremarkable except as noted in HPI and below Constitutional: Constitutional: Reports as per HPI and Reports no additional constitutional complaints Eyes: Eyes: Reports as per HPI and Reports no additional eye complaints ENT: Reports system reviewed and no additional complaints, except as documented and Reports Normal hearing present Cardiovascular: Cardiovascular: Reports no additional cardiovascular complaints Respiratory: Respiratory: Reports no additional respiratory complaints and Reports no additional respiratory complaints Gastrointestinal: Gastrointestinal: Reports as per HPI and Reports no additional gastrointestinal complaints Musculoskeletal: Musculoskeletal: Reports no additional musculoskeletal complaints Integumentary/Breasts: Skin/Breast: Reports system reviewed and no additional complaints, except as docu and Reports as per HPI Neurologic: Reports system reviewed and no additional complaints, except as documented, Reports as per HPI and Reports Normal hearing present Psychiatric: Psychiatric: Reports no additional psychiatric complaints and Reports as per HPI Endocrine: Endocrine: Reports no additional endocrine complaints Hematologic/Lymphatic:
[2020-11-17 14:19] LABS: Basophils Percent Auto 0.3 % (0.2-1.2); Eosinophils Absolute Auto 0.4 K/mm3 (0-0.3); Hematocrit 32.4 % (37.0-47.0); Hemoglobin 10.3 g/dL (12.0-15.0); Immature Granulocyte Absolute 0.04 K/mm3 (0.00-0.031); Immature Granulocyte Percent A 0.3 % (0-0.5); Lymphocytes Absolute Auto 0.97 K/mm3 (0.9-3.2); Lymphocytes Percent Auto 8.4 % (18.3-44.2); Mean Corpuscular HGB Conc 31.8 g/dl (32-36); Mean Corpuscular Hemoglobin 25.4 pg (26-34); Mean Platelet Volume 10.2 fl (7.4-10.4); Monocytes Absolute Auto 0.8 K/mm3 (0.1-0.6); Monocytes Percent Auto 6.8 % (2.6-8.5); Neutrophils Absolute Auto 9.4 K/mm3 (1.3-6.7); Neutrophils Percent Auto 81.2 % (45.5-73.1); Platelet Count Result 257 k/mm3 (150-375); Red Blood Count 4.05 M/mm3 (4.2-5.4); Red Cell Distribution Width 13.8 % (11.5-14.5); White Blood Count 11.6 K/mm3 (4.5-10.0)
[2020-11-17 14:29] LABS: Glucose Point of Care 124 (65-105)
[2020-11-17 14:38] LABS: Anion Gap 8 mmol/L (8-16); Blood Urea Nitrogen 19 mg/dL (7-17); Carbon Dioxide 34 mmol/L (22-30); Chloride 96 mmol/L (98-107); Estimated CRCL calculation 53 ml/min; Estimated Glomerular Filt Rate > 60; Glucose 145 mg/dL (65-105); Lactic Acid Reflex 0.9 mmol/L (0.7-2.1); Magnesium 1.9 mg/dL (1.6-2.3); Potassium 3.7 mmol/L (3.4-5.0); Sodium 138 mmol/L (137-145)
[2020-11-17 16:14] LABS: Hemoglobin A1C 7.5 % (<5.7)
[2020-11-17] MEDS: SILVERGEL (ELTA) 45 ML 1 APPLIC TOPICAL (17:34)
[2020-11-17] MEDS: ENOXAPARIN 40 MG/0.4 ML SYRINGE SUB-Q (17:58)
--- NOTE | 2020-11-17 18:52 | WPDCN ---
Assessment and Plan Assessment and plan (1) Cellulitis of finger of left hand: Code(s): L03.012 - Cellulitis of left finger Status: Acute Assessment and Plan: Pt not able to undergo MRI due to implanted metallic hardware. Plain films and cellulitis support diagnosis of osteomyelitis. Multiple allergies to antibiotics will require input from ID. CT scan may be useful for clarity in deciding appropriate amputation levels if that decision is required. Wound care to be guided by [facility]. Will order arterial dopler of lower extremities. (2) Wound of right lower extremity: Qualifiers: Encounter type: initial encounter Qualified Code(s): S81.801A - Unspecified open wound, right lower leg, initial encounter Code(s): S81.801A - Unspecified open wound, right lower leg, initial encounter Status: Acute Assessment and Plan: See above. Additional Plan Will monitor response to IV antibiotics. No immediate surgery planned. I will follow daily. HPI Data of Consult Date/Time: 11/17/20 18:52 Requesting Physician: Danie Coto MD Primary Care Provider: Axel Price MD Consult Narrative Narrative: Ce Young is a 70 year old female diabetic with stage 3 chronic kidney disease, heart disease, severe venous stasis disease, neuromuscular stimulator and severe deforming DJD. Admission glucose 145, Hba1c 7.4. 30 year smoker quit ~15 years ago. Admitted from her primary physician's office with obvious severe cellulitis with swelling and drainage of the left middle finger distal phalanx and right 2nd toe. X-rays indicate bone destruction of the distal phalanx of each. She is a patient of the [facility] for severe VSD. She has not seen the manager of procurement suggested to her. I have seen Ce for Carpal Tunnel syndrome and a chronic skin ulceration of the palmar dipj of the now infected left middle finger. She has a tendency to clean, disinfect and debride this site unnecessarily. When I saw her a few weeks ago she did not have the severe swelling she has now. [facility] Past Medical History Medical History (Updated 11/17/20 @ 14:51 by Meagan Shepard NP) Anemia Anxiety Chronic kidney disease Chronic venous stasis dermatitis of both lower extremities CKD (chronic kidney disease) stage 3, GFR 30-59 ml/min CVA (cerebral vascular accident) Diabetes type 2, controlled Diverticulosis DM renal manif type II, uncontrolled Dyslipidemia History of renal cell cancer removed surgically bilaterally no chemo or radiation History of stroke with current residual effects expressive aphasia which cleared up with speech therapy Hypertension Kidney malignant neoplasm Long-term current use of insulin for diabetes mellitus Major depressive disorder, single episode, unspecified ANA (obstructive sleep apnea) Intolerant to CPAP machine Osteomyelitis of great toe of left foot Presence of neurostimulator in her back as well as a pain pump. Right femoral fracture ORIF S/P ORIF (open reduction internal fixation) fracture right hip Sleep apnea Vitamin B12 deficiency Surgical History Surgical History (Updated 11/17/20 @ 14:33 by Meagan Shepard, ARAM) History of arthroplasty of right shoulder History of carpal tunnel release History of cataract extraction History of laparotomy History of total right hip arthroplasty Hx of cholecystectomy S/P cubital tunnel release Family History Family History Father Family history of coronary artery disease Family history of heart disease in male family member before age 55 Cerebrovascular accident Sibling Family history of coronary artery disease Mother Family history of obesity Other Depression Diabetes mellitus Family history of cardiovascular disease Family history of glaucoma Hypertension Social History Social History (Updated 11/17/20 @ 14:34 by Meagan Shepard, N
[2020-11-17 20:13] VITALS: BP 128/46; PULSE 86; RESP 12; TEMP 36.8; O2SAT 100
[2020-11-17] MEDS: INSULIN GLARGINE (*BKC) 100 UNITS/ML 30 UNITS SUB-Q (22:23)
[2020-11-17] MEDS: CYCLOBENZAPRINE HCL 10 MG TABLET PO (22:27)
[2020-11-17] MEDS: OMEGA 3 POLYUNSAT FATTY ACIDS 1 GM CAP PO (22:28)
[2020-11-17] MEDS: ATORVASTATIN 20 MG TABLET PO (22:29)
[2020-11-17] MEDS: MONTELUKAST SODIUM 10 MG TABLET PO (22:29)
[2020-11-17] MEDS: VALSARTAN 40 MG TABLET PO (22:29)
[2020-11-17] MEDS: VENLAFAXINE HCL XR 75 MG CAP.ER.24H PO (22:30)
[2020-11-17] MEDS: metFORMIN HCL 500 MG TABLET 1000 MG PO (22:30)
[2020-11-17 23:02] LABS: Glucose Point of Care 107 (65-105)
[2020-11-18 05:35] VITALS: BP 115/40; PULSE 82; RESP 12; TEMP 36.4; O2SAT 99
[2020-11-18 05:51] LABS: Basophils Absolute Auto 0.1 K/mm3 (0.0-0.1); Basophils Percent Auto 0.6 % (0.2-1.2); Eosinophils Absolute Auto 0.5 K/mm3 (0-0.3); Eosinophils Percent Auto 4.3 % (0-4.4); Hematocrit 30.4 % (37.0-47.0); Hemoglobin 9.7 g/dL (12.0-15.0); Immature Granulocyte Absolute 0.07 K/mm3 (0.00-0.031); Immature Granulocyte Percent A 0.6 % (0-0.5); Lymphocytes Absolute Auto 1.46 K/mm3 (0.9-3.2); Lymphocytes Percent Auto 11.7 % (18.3-44.2); Mean Corpuscular HGB Conc 31.9 g/dl (32-36); Mean Corpuscular Hemoglobin 25.3 pg (26-34); Mean Corpuscular Volume 79.2 fl (80-100); Mean Platelet Volume 9.9 fl (7.4-10.4); Monocytes Absolute Auto 1.1 K/mm3 (0.1-0.6); Monocytes Percent Auto 8.7 % (2.6-8.5); Neutrophils Absolute Auto 9.3 K/mm3 (1.3-6.7); Neutrophils Percent Auto 74.1 % (45.5-73.1); Platelet Count Result 274 k/mm3 (150-375); Red Blood Count 3.84 M/mm3 (4.2-5.4); Red Cell Distribution Width 13.8 % (11.5-14.5); White Blood Count 12.5 K/mm3 (4.5-10.0)
[2020-11-18 06:03] LABS: Anion Gap 6 mmol/L (8-16); Blood Urea Nitrogen 23 mg/dL (7-17); Calcium 8.9 mg/dL (8.4-10.2); Carbon Dioxide 34 mmol/L (22-30); Chloride 95 mmol/L (98-107); Estimated CRCL calculation 53 ml/min; Estimated Glomerular Filt Rate > 60; Glucose 73 mg/dL (65-105); Potassium 3.8 mmol/L (3.4-5.0); Sodium 135 mmol/L (137-145)
[2020-11-18] MEDS: CYCLOBENZAPRINE HCL 10 MG TABLET PO ×3 (06:27→21:00)
[2020-11-18 07:28] LABS: Glucose Point of Care 83 (65-105)
[2020-11-18] MEDS: SILVERGEL (ELTA) 45 ML 1 APPLIC TOPICAL (08:32)
[2020-11-18] MEDS: metFORMIN HCL 500 MG TABLET 1000 MG PO ×2 (08:33→16:51)
[2020-11-18] MEDS: LORATADINE 10 MG TABLET PO (08:33)
[2020-11-18] MEDS: hydroCHLOROthiazide 25 MG TABLET PO (08:34)
[2020-11-18] MEDS: FERROUS SULFATE 324 MG TABLET PO ×3 (08:34→16:51)
[2020-11-18] MEDS: MIRABEGRON 50 MG ER TABLET PO (08:34)
[2020-11-18] MEDS: OMEGA 3 POLYUNSAT FATTY ACIDS 1 GM CAP PO ×2 (08:34→20:59)
[2020-11-18] MEDS: ASCORBIC ACID 500 MG TABLET PO (08:34)
[2020-11-18] MEDS: PANTOPRAZOLE 40 MG TABLET PO (08:34)
[2020-11-18] MEDS: VALSARTAN 40 MG TABLET PO ×2 (08:34→20:59)
[2020-11-18] MEDS: ASPIRIN 81 MG ENTERIC TABLET PO ×2 (08:34→16:52)
[2020-11-18 08:35] VITALS: PULSE 82
[2020-11-18] MEDS: METOPROLOL SUCCINATE EXT REL 25 MG TABCR PO (08:35)
[2020-11-18] MEDS: VENLAFAXINE HCL XR 75 MG CAP.ER.24H 150 MG PO (08:35)
[2020-11-18] MEDS: INSULIN GLARGINE (*BKC) 100 UNITS/ML 30 UNITS SUB-Q ×2 (08:37→20:58)
[2020-11-18 12:15] LABS: Glucose Point of Care 139 (65-105)
[2020-11-18 14:52] VITALS: BP 111/52; PULSE 73; RESP 16; TEMP 36.2; O2SAT 97
--- NOTE | 2020-11-18 15:06 | WPDINFPN2 ---
Progress Note: A&P Assessment and Plan (1) Osteomyelitis of toe of right foot: Code(s): M86.9 - Osteomyelitis, unspecified Status: Acute Assessment and Plan: OM of L 3rd finger and R 2nd toe, acute clinically but with chronic features on Xray REC Disc options, she wants to try IV therapy but is aware of chance of failure. Use Ctx through 12/28, modify if swab cultures or Blood cultures dictate, PICC Subjective Date/time seen: 11/18/20 15:06 Objective Data Vital Signs Vital Signs: Vital Signs - 24 hr 11/17/20 20:13 11/18/20 05:35 11/18/20 08:35 Temperature 36.8 C 36.4 C L Pulse Rate 86 82 82 Respiratory Rate 12 12 Blood Pressure 128/46 L 115/40 L Pulse Oximetry 100 99 11/18/20 14:52 Temperature 36.2 C L Pulse Rate 73 Respiratory Rate 16 Blood Pressure 111/52 L Pulse Oximetry 97 Intake/Output Intake/Output: Intake & Output 11/15/20 11/16/20 11/17/20 11/18/20 23:59 23:59 23:59 23:59 Intake Total 830 1270 Output Total 1500 Balance 830 -230 Meds/Results Medications: Active Medications Generic Name Dose Route Start Last Admin Trade Name Freq PRN Reason Stop Dose Admin Ascorbic Acid 500 mg 11/18/20 09:00 11/18/20 08:34 Ascorbic Acid 500 Mg Tablet PO 12/18/20 09:01 500 mg DAILY ESTER Administration Aspirin 81 mg 11/18/20 09:00 11/18/20 08:34 Aspirin 81 Mg Enteric Tablet PO 81 mg BID ESTER Administration Atorvastatin Calcium 20 mg 11/17/20 21:00 11/17/20 22:29 Atorvastatin 20 Mg Tablet PO 20 mg HS ESTER Administration Buspirone HCl 5 mg 11/17/20 19:37 Buspirone Hcl 5 Mg Tablet PO BID PRN Anxiety Cyclobenzaprine HCl 10 mg 11/17/20 22:00 11/18/20 13:00 Cyclobenzaprine Hcl 10 Mg Tablet PO 10 mg Q8HR ESTER Administration Dextrose 12.5 gm 11/17/20 14:07 Dextrose 50% 25 Gm/50 Ml Syringe IV PUSH PRN PRN Hypoglycemia Protocol Docusate Sodium 100 mg 11/17/20 19:37 Docusate Sodium 100 Mg Capsule PO DAILY PRN Constipation Enoxaparin Sodium 40 mg 11/17/20 18:00 11/17/20 17:58 Enoxaparin 40 Mg/0.4 Ml Syringe SUB-Q 40 mg Q24H ESTER Administration Ferrous Sulfate 324 mg 11/18/20 08:00 11/18/20 12:16 Ferrous Sulfate 324 Mg Tablet PO 324 mg TIDWM ESTER Administration Fish Oil 1 gm 11/17/20 21:00 11/18/20 08:34 [place] 3 Polyunsat Fatty Acids 1 Gm Cap PO 1 gm Q12HR ESTER Administration Glucagon 1 mg 11/17/20 14:07 Glucagon For Inj 1 Mg Vial IM PRN PRN Hypoglycemia Protocol Glucose 15 gm 11/17/20 14:07 Glucose Oral Gel 15 Gm Of Glucse In 37.5 Gm Tube PO PRN PRN Hypoglycemia Protocol Hydrochlorothiazide 25 mg 11/18/20 09:00 11/18/20 08:34 Hydrochlorothiazide 25 Mg Tablet PO 25 mg DAILY ESTER Administration Dextrose 1,000 mls @ 100 mls/hr 11/17/20 14:07 Dextrose 5% 1,000 Ml IVPB PRN PRN Hypoglycemia Protocol Ceftriaxone Sodium 2 gm in 100 mls @ 200 mls/hr 11/18/20 15:05 Rocephin 2 Gm/D5w 100 Ml IVPB Q24H [facility] Insulin Aspart 2 - 5 units 11/17/20 17:00 11/18/20 12:13 Insulin Aspart (*Bkc) 100 Units/Ml SUB-Q Not Given TIDWM [facility] Protocol Insulin Glargine 30 units 11/17/20 21:00 11/18/20 08:37 Insulin Glargine (*Bkc) 100 Units/Ml SUB-Q 30 units Q12HR ESTER Administration Loratadine 10 mg 11/18/20 09:00 11/18/20 08:33 Loratadine 10 Mg Tablet PO 10 mg DAILY ESTER Administration Metformin HCl 1,000 mg 11/17/20 20:05 11/18/20 08:33 Metformin Hcl 500 Mg Tablet PO 1,000 mg BIDWM ESTER Administration Metoprolol Succinate 25 mg 11/18/20 09:00 11/18/20 08:35 Metoprolol Succinate Ext Rel 25 Mg Tabcr PO 25 mg DAILY [facility] Administration Mirabegron 50 mg 11/18/20 09:00 11/18/20 08:34 Mirabegron 50 Mg Er Tablet PO 50 mg DAILY ESTER Administration Montelukast Sodium 10 mg 11/17/20 21:00 11/17/20 22:29 Montelukast Sodium 10 Mg Tabl
[2020-11-18] MEDS: ACETAMINOPHEN 325 MG TABLET 650 MG PO (15:55)
[2020-11-18 16:16] LABS: Glucose Point of Care 124 (65-105)
--- NOTE | 2020-11-18 17:11 | PHAR ---
HOME MED VERIFIED = [facility] [id number] JARDIANCE 25MG TABS 1 TAB DAILY
[2020-11-18] MEDS: ENOXAPARIN 40 MG/0.4 ML SYRINGE SUB-Q (17:53)
--- NOTE | 2020-11-18 18:13 | WPDPN ---
Progress Note: A&P Assessment and Plan (1) Osteomyelitis of toe of right foot: Code(s): M86.9 - Osteomyelitis, unspecified Status: Acute Assessment and Plan: OM of L 3rd finger and R 2nd toe, acute clinically but with chronic features on Xray REC Disc options, she wants to try IV therapy but is aware of chance of failure. Use Ctx through 12/28, modify if swab cultures or Blood cultures dictate, PICC (2) Cellulitis of finger of left hand: Code(s): L03.012 - Cellulitis of left finger Status: Acute Assessment and Plan: Less swelling. No necrotic skin. No sign of tenosynovitis. Continue antibiotic plan. (3) Osteomyelitis of finger of left hand: Code(s): M86.9 - Osteomyelitis, unspecified Status: Acute Assessment and Plan: Plan per Dr Richardson. (4) Venous stasis dermatitis of both lower extremities: Code(s): I87.2 - Venous insufficiency (chronic) (peripheral) Status: Acute Assessment and Plan: Contributes to edema and maceration of right foot. Needs frequent elevation. Additional Plan Follow daily. Exam Narrative: Exam Narrative: WBC remains at 12. Glucose and renal function satisfactory for now. Blood and wound cultures pending. Both extremities show improvement in cellulitis on current tx. LE art. Doppler test pending for system malfunction. Patient said to have been picking at her finger bandage and it has been reinforced. Objective Data Vital Signs Vital Signs: Vital Signs - 24 hr 11/17/20 20:13 11/18/20 05:35 11/18/20 08:35 Temperature 36.8 C 36.4 C L Pulse Rate 86 82 82 Respiratory Rate 12 12 Blood Pressure 128/46 L 115/40 L Pulse Oximetry 100 99 11/18/20 14:52 Temperature 36.2 C L Pulse Rate 73 Respiratory Rate 16 Blood Pressure 111/52 L Pulse Oximetry 97 Intake/Output Intake/Output: Intake & Output 11/15/20 11/16/20 11/17/20 11/18/20 23:59 23:59 23:59 23:59 Intake Total 830 1270 Output Total 1500 Balance 830 -230 Meds/Results Medications: Active Medications Generic Name Dose Route Start Last Admin Trade Name Freq PRN Reason Stop Dose Admin Acetaminophen 650 mg 11/18/20 15:30 11/18/20 15:55 Acetaminophen 325 Mg Tablet PO 650 mg Q6H PRN Administration Mild Pain (1-3) or Fever Ascorbic Acid 500 mg 11/18/20 09:00 11/18/20 08:34 Ascorbic Acid 500 Mg Tablet PO 12/18/20 09:01 500 mg DAILY ESTER Administration Aspirin 81 mg 11/18/20 09:00 11/18/20 16:52 Aspirin 81 Mg Enteric Tablet PO 81 mg BID ESTER Administration Atorvastatin Calcium 20 mg 11/17/20 21:00 11/17/20 22:29 Atorvastatin 20 Mg Tablet PO 20 mg HS ESTER Administration Buspirone HCl 5 mg 11/17/20 19:37 Buspirone Hcl 5 Mg Tablet PO BID PRN Anxiety Cyclobenzaprine HCl 10 mg 11/17/20 22:00 11/18/20 13:00 Cyclobenzaprine Hcl 10 Mg Tablet PO 10 mg Q8HR ESTER Administration Dextrose 12.5 gm 11/17/20 14:07 Dextrose 50% 25 Gm/50 Ml Syringe IV PUSH PRN PRN Hypoglycemia Protocol Docusate Sodium 100 mg 11/17/20 19:37 Docusate Sodium 100 Mg Capsule PO DAILY PRN Constipation Enoxaparin Sodium 40 mg 11/17/20 18:00 11/18/20 17:53 Enoxaparin 40 Mg/0.4 Ml Syringe SUB-Q 40 mg Q24H ESTER Administration Ferrous Sulfate 324 mg 11/18/20 08:00 11/18/20 16:51 Ferrous Sulfate 324 Mg Tablet PO 324 mg TIDWM ESTER Administration Fish Oil 1 gm 11/17/20 21:00 11/18/20 08:34 [place] 3 Polyunsat Fatty Acids 1 Gm Cap PO 1 gm Q12HR ESTER Administration Glucagon 1 mg 11/17/20 14:07 Glucagon For Inj 1 Mg Vial IM PRN PRN Hypoglycemia Protocol Glucose 15 gm 11/17/20 14:07 Glucose Oral Gel 15 Gm Of Glucse In 37.5 Gm Tube PO PRN PRN Hypoglycemia Protocol Hydrochlorothiazide 25 mg 11/18/20 09:00 11/18/20 08:34 Hydrochlorothiazide 25 Mg Tablet PO 25 mg DAILY ESTER Administration
[2020-11-18 19:28] VITALS: BP 100/58; PULSE 72; RESP 14; TEMP 36.2; O2SAT 97
--- NOTE | 2020-11-18 19:56 | PM.IMPN ---
Progress Note: A&P Assessment and Plan (1) Cellulitis of finger of left hand: Code(s): L03.012 - Cellulitis of left finger Status: Acute Assessment and Plan: the patient stated that she has seen Dr. Cotter in the past for infection to her left pinky. She has also seen Dr. leon in the past and had a PICC line in the past. I did order an x-ray of that left hand. She was started on vancomycin and Primaxin per antibiotic protocol. blood cultures are pending. Wound cultures are pending as well. (2) Wound of right lower extremity: Qualifiers: Encounter type: initial encounter Qualified Code(s): S81.801A - Unspecified open wound, right lower leg, initial encounter Code(s): S81.801A - Unspecified open wound, right lower leg, initial encounter Status: Acute Assessment and Plan: The patient was treated outpatient with clindamycin for several weeks. She has had no improvement and has failed outpatient therapy. As per antibiotic protocol I did start her on vancomycin and Primaxin. May consider consult for Dr. leon. I initially consulted Dr. tran who was notified and stated that we should refer this patient to Dr. Cotter. We did place a consult to Dr. Cotter for the left hand but he could see the patient for the right toe as well that would be appreciated. Wound cultures and blood cultures are pending. (3) Long-term current use of insulin for diabetes mellitus: Code(s): Z79.4 - [facility] (current) use of insulin; E11.9 - Type 2 diabetes mellitus without complications Status: Chronic Assessment and Plan: Accu-Cheks AC and HS. The patient stated that her blood sugars have been ranging anywhere from 71-247. It is not known what her A1c is but will check it. The patient stated that she uses a sliding scale insulin at home. We are verifying home medications at this time (4) Major depressive disorder, single episode, unspecified: Code(s): F32.9 - Major depressive disorder, single episode, unspecified Status: Chronic Assessment and Plan: the patient takes venlafaxine and we can continue with that. (5) CKD (chronic kidney disease) stage 3, GFR 30-59 ml/min: Code(s): N18.3 - Chronic kidney disease, stage 3 (moderate) Status: Chronic Assessment and Plan: Patient is at her baseline continue to monitor. (6) Chronic venous stasis dermatitis of both lower extremities: Code(s): I87.2 - Venous insufficiency (chronic) (peripheral) Status: Chronic Assessment and Plan: Wound care consult has been placed and they will continue to manage her chronic venous stasis ulcers to her lower extremities bilaterally. (7) Anxiety: Code(s): F41.9 - Anxiety disorder, unspecified Status: Chronic Assessment and Plan: Continue with her venlafaxine (8) Occlusion and stenosis of unspecified carotid artery: Code(s): I65.29 - Occlusion and stenosis of unspecified carotid artery Status: Acute Assessment and Plan: patient was seeing Dr. Shelton outpatient continue with home medications. (9) Dyslipidemia: Code(s): E78.5 - Hyperlipidemia, unspecified Status: Chronic Assessment and Plan: Continue with home medication (10) Anemia: Code(s): D64.9 - Anemia, unspecified Status: Acute Assessment and Plan: Continue to monitor. The patient appears to be at her baseline. Continue with home medications. Subjective Date/time seen: 11/18/20 14:56 Patient doing okay she continues to have pain and swelling in both her right foot and left hand. Pending consult by ID. She has been seen by orthopedist and he has discussed with her at length possible partial amputation of right foot. Exam Narrative: Exam Narrative: GEN: NAD, AAOx.3, cooperative HEENT: NCAT, MMM, EOMI Neck: no JVD Heart: S1S2 RRR Lungs: CTA B/l Abd: soft, NT, ND, bowel sounds normoactive Ext:
--- NOTE | 2020-11-18 20:33 | CONS_ITS ---
DATE OF CONSULTATION: 11/18/2020 REASON FOR CONSULTATION: Osteomyelitis. HISTORY OF PRESENT ILLNESS: A 70-year-old female known to me from previously. She has had a prior osteomyelitis of left foot or toes with clinical improvement. More recently, she has had swelling, pain, erythema over the left second toe, which has been progressive and now also with similar symptoms in the left 3rd finger. She admits to bumping her digits up against objects frequently, although does generally wear shoes indoors and outdoors. She is on clindamycin prior to admission, which helped her symptoms only partially. She has been on no recent IV antibiotics. She has had multiple x-rays and has already seen Dr. Cotter in the office on October 21. The patient was admitted to the hospital yesterday through the office and been given imipenem and vancomycin. Consultation requested. No fever, chills, or sweats. No diarrhea, nausea, vomiting. She knows of no other trauma. ALLERGIES: CEPHALEXIN CAUSES DIARRHEA, BUT NO HYPERSENSITIVITY REACTIONS. TRIMETHOPRIM UNKNOWN REACTION. OTHERS NOT PERTINENT. PRESENT MEDICATIONS: List reviewed. No systemic immunosuppressants. HABITS: Ex-smoker. No alcohol. PAST MEDICAL HISTORY: Arm surgery, cholecystectomy, right total hip arthroplasty, cataract extractions, right shoulder hemiarthroplasty also performed. She has a known B12 deficiency, ANA, ORIF of the right femur fracture, nerve stimulator, previous osteomyelitis of the left first toe as above, depression, diabetes mellitus, kidney cancer, hypertension, stroke, hyperlipidemia, stage 3 chronic renal insufficiency, stasis dermatitis, anemia, anxiety. REVIEW OF SYSTEMS: 14-point review otherwise negative. FAMILY HISTORY: Not pertinent to her present illness. SOCIAL HISTORY: Does not work outside the home. She is , lives locally and lives with her son and daughter. PHYSICAL EXAMINATION: GENERAL: Elderly female who appears her actual age. No respiratory distress. VITAL SIGNS: Afebrile 73, 16, 111/52, 97% room air. SKIN: Warm and dry. No rashes. EENT: Conjunctivae are clear. Oral mucosa is well hydrated. NECK: No masses, thyromegaly, adenopathy. LUNGS: Clear to auscultation and percussion. CHEST: Equal expansion. Normal AP diameter. CARDIAC: Regular rate and rhythm. No murmurs or gallops. ABDOMEN: Nontender, soft. No organomegaly. No masses. EXTREMITIES: She has a 1+ right lower extremity edema and stasis erythema. MUSCULOSKELETAL: Over the right second toe and left 3rd finger, she has distal and middle phalanx edema, erythema with denuded skin at the distal aspect in both cases. She has mildly diminished range of motion. She has erythema over the dorsum of the right foot, not over the hand. There is no streaking. LABORATORY DATA: Blood cultures in process. There are swab wound cultures latter collected this morning. White count 12.5, hemoglobin 9.7, platelets are 274, differential minimal left shift. She has hyponatremia. BUN 23, creatinine 0.8. Hemoglobin A1c 7.5% similar to previous values. CRP 10/01/2020, was 7.0. RADIOLOGY: Foot x-ray and finger x-rays both show acral osteolysis and cellulitis findings. ASSESSMENT: 1. Erythema, edema of the aforementioned digits. I suspect acute osteomyelitis, although she may have an element of chronic osteomyelitis in both cases. Skin lebron are suspected. Methicillin-resistant Staphylococcus aureus is unlikely. I doubt hematogenous seeding of the bones. I doubt that her clinical and x-ray findings are due to noninfectious causes such as gout or tumor. 2. Diabetes mellitus with peripheral neuropathy. 3. Cephalexin intolerance, not hypersensitivity reaction. 4. Glaucoma. RECOMMENDATIONS: I discussed
[2020-11-18] MEDS: ATORVASTATIN 20 MG TABLET PO (20:59)
[2020-11-18] MEDS: MONTELUKAST SODIUM 10 MG TABLET PO (20:59)
[2020-11-18] MEDS: VENLAFAXINE HCL XR 75 MG CAP.ER.24H PO (20:59)
[2020-11-18 22:13] LABS: Glucose Point of Care 123 (65-105)
[2020-11-19 05:47] VITALS: BP 132/48; PULSE 85; RESP 12; TEMP 36.4; O2SAT 100
[2020-11-19] MEDS: CYCLOBENZAPRINE HCL 10 MG TABLET PO ×3 (05:51→22:36)
[2020-11-19 07:36] LABS: Glucose Point of Care 83 (65-105)
[2020-11-19] MEDS: FERROUS SULFATE 324 MG TABLET PO ×3 (08:06→16:52)
[2020-11-19] MEDS: MIRABEGRON 50 MG ER TABLET PO (08:06)
[2020-11-19] MEDS: OMEGA 3 POLYUNSAT FATTY ACIDS 1 GM CAP PO ×2 (08:07→22:36)
[2020-11-19] MEDS: ASCORBIC ACID 500 MG TABLET PO (08:07)
[2020-11-19] MEDS: PANTOPRAZOLE 40 MG TABLET PO (08:07)
[2020-11-19] MEDS: VENLAFAXINE HCL XR 75 MG CAP.ER.24H 150 MG PO (08:07)
[2020-11-19] MEDS: VALSARTAN 40 MG TABLET PO ×2 (08:07→22:36)
[2020-11-19] MEDS: SILVERGEL (ELTA) 45 ML 1 APPLIC TOPICAL (08:07)
[2020-11-19] MEDS: metFORMIN HCL 500 MG TABLET 1000 MG PO ×2 (08:07→16:52)
[2020-11-19 08:08] VITALS: PULSE 85
[2020-11-19] MEDS: hydroCHLOROthiazide 25 MG TABLET PO (08:08)
[2020-11-19] MEDS: METOPROLOL SUCCINATE EXT REL 25 MG TABCR PO (08:08)
[2020-11-19] MEDS: ASPIRIN 81 MG ENTERIC TABLET PO ×2 (08:08→16:52)
[2020-11-19] MEDS: LORATADINE 10 MG TABLET PO (08:09)
[2020-11-19] MEDS: HOME MEDICATION 1 EACH PO (08:10)
[2020-11-19] MEDS: INSULIN GLARGINE (*BKC) 100 UNITS/ML 30 UNITS SUB-Q ×2 (08:16→22:34)
[2020-11-19 12:35] LABS: Glucose Point of Care 96 (65-105)
--- NOTE | 2020-11-19 13:54 | WPDPN ---
Progress Note: A&P Assessment and Plan (1) Osteomyelitis of finger of left hand: Code(s): M86.9 - Osteomyelitis, unspecified Status: Acute Assessment and Plan: Cellulitis improving. But, will need amputation of the finger likely at the PIPJ. Pt aware. (2) Osteomyelitis of toe of right foot: Code(s): M86.9 - Osteomyelitis, unspecified Status: Acute Assessment and Plan: Cellulitis improving. Will need eventual amputation. Will need arterial doppler and CT of foot prior to any amputation. Exam Narrative: Exam Narrative: Left middle finger is ulcerated at the tip and draining. Erythema extends dorsally over the middle phalanx. Right second toe has 5 mm tip ulcer without drainage. Wound cx: Staph aureus. Objective Data Vital Signs Vital Signs: Vital Signs - 24 hr 11/18/20 14:52 11/18/20 19:28 11/19/20 05:47 Temperature 36.2 C L 36.2 C L 36.4 C L Pulse Rate 73 72 85 Respiratory Rate 16 14 12 Blood Pressure 111/52 L 100/58 L 132/48 L Pulse Oximetry 97 97 100 11/19/20 08:08 Temperature Pulse Rate 85 Respiratory Rate Blood Pressure Pulse Oximetry Intake/Output Intake/Output: Intake & Output 11/16/20 11/17/20 11/18/20 11/19/20 23:59 23:59 23:59 23:59 Intake Total 830 2160 960 Output Total 1500 1550 Balance 830 660 -590 Meds/Results Medications: Active Medications Generic Name Dose Route Start Last Admin Trade Name Freq PRN Reason Stop Dose Admin Acetaminophen 650 mg 11/18/20 15:30 11/18/20 15:55 Acetaminophen 325 Mg Tablet PO 650 mg Q6H PRN Administration Mild Pain (1-3) or Fever Ascorbic Acid 500 mg 11/18/20 09:00 11/19/20 08:07 Ascorbic Acid 500 Mg Tablet PO 12/18/20 09:01 500 mg DAILY ESTER Administration Aspirin 81 mg 11/18/20 09:00 11/19/20 08:08 Aspirin 81 Mg Enteric Tablet PO 81 mg BID ESTER Administration Atorvastatin Calcium 20 mg 11/17/20 21:00 11/18/20 20:59 Atorvastatin 20 Mg Tablet PO 20 mg HS ESTER Administration Buspirone HCl 5 mg 11/17/20 19:37 Buspirone Hcl 5 Mg Tablet PO BID PRN Anxiety Cyclobenzaprine HCl 10 mg 11/17/20 22:00 11/19/20 05:51 Cyclobenzaprine Hcl 10 Mg Tablet PO 10 mg Q8HR ESTER Administration Dextrose 12.5 gm 11/17/20 14:07 Dextrose 50% 25 Gm/50 Ml Syringe IV PUSH PRN PRN Hypoglycemia Protocol Docusate Sodium 100 mg 11/17/20 19:37 Docusate Sodium 100 Mg Capsule PO DAILY PRN Constipation Enoxaparin Sodium 40 mg 11/17/20 18:00 11/18/20 17:53 Enoxaparin 40 Mg/0.4 Ml Syringe SUB-Q 40 mg Q24H ESTER Administration Ferrous Sulfate 324 mg 11/18/20 08:00 11/19/20 12:25 Ferrous Sulfate 324 Mg Tablet PO 324 mg TIDWM ESTER Administration Fish Oil 1 gm 11/17/20 21:00 11/19/20 08:07 [place] 3 Polyunsat Fatty Acids 1 Gm Cap PO 1 gm Q12HR ESTER Administration Glucagon 1 mg 11/17/20 14:07 Glucagon For Inj 1 Mg Vial IM PRN PRN Hypoglycemia Protocol Glucose 15 gm 11/17/20 14:07 Glucose Oral Gel 15 Gm Of Glucse In 37.5 Gm Tube PO PRN PRN Hypoglycemia Protocol Hydrochlorothiazide 25 mg 11/18/20 09:00 11/19/20 08:08 Hydrochlorothiazide 25 Mg Tablet PO 25 mg DAILY ESTER Administration Dextrose 1,000 mls @ 100 mls/hr 11/17/20 14:07 Dextrose 5% 1,000 Ml IVPB PRN PRN Hypoglycemia Protocol Ceftriaxone Sodium 2 gm in 100 mls @ 200 mls/hr 11/18/20 18:00 11/18/20 18:23 Rocephin 2 Gm/D5w 100 Ml IVPB Infused Q24H [facility] Insulin Aspart 2 - 5 units 11/17/20 17:00 11/19/20 12:24 Insulin Aspart (*Bkc) 100 Units/Ml SUB-Q Not Given TIDWM [facility] Protocol Insulin Glargine 30 units 11/17/20 21:00 11/19/20 08:16 Insulin Glargine (*Bkc) 100 Units/Ml SUB-Q 30 units Q12HR ESTER Administration Loratadine 10 mg 11/18/20 09:00 11/19/20 08:09 Loratadine 10 Mg Tablet PO 10 mg DAILY [facility] Administ
[2020-11-19 14:00] VITALS: BP 104/49; PULSE 78; RESP 16; TEMP 36.7; O2SAT 100
[2020-11-19] MEDS: busPIRone HCL 5 MG TABLET PO ×2 (14:28→22:36)
[2020-11-19 16:37] LABS: Glucose Point of Care 87 (65-105)
[2020-11-19] MEDS: ENOXAPARIN 40 MG/0.4 ML SYRINGE SUB-Q (17:37)
--- NOTE | 2020-11-19 17:50 | PM.IMPN ---
Progress Note: A&P Assessment and Plan (1) Cellulitis of finger of left hand: Code(s): L03.012 - Cellulitis of left finger Status: Acute Assessment and Plan: the patient stated that she has seen Dr. Cotter in the past for infection to her left pinky. She has also seen Dr. leon in the past and had a PICC line in the past. I did order an x-ray of that left hand. She was started on vancomycin and Primaxin per antibiotic protocol. blood cultures are pending. Wound cultures are pending as well. 11/18/20 Continue current care Antibiotic as directed by ID Dr. Cotter considering amputation Spoke with radiologist regarding need for further imaging he states that the x-rays sufficient for noting osteomyelitis 11/19/2020 Patient reports improvement of symptoms currently the digit is wrapped and I am unable to inspected Continue current care IV antibiotics per ID (2) Wound of right lower extremity: Qualifiers: Encounter type: initial encounter Qualified Code(s): S81.801A - Unspecified open wound, right lower leg, initial encounter Code(s): S81.801A - Unspecified open wound, right lower leg, initial encounter Status: Acute Assessment and Plan: The patient was treated outpatient with clindamycin for several weeks. She has had no improvement and has failed outpatient therapy. As per antibiotic protocol I did start her on vancomycin and Primaxin. May consider consult for Dr. leon. I initially consulted Dr. tran who was notified and stated that we should refer this patient to Dr. Cotter. We did place a consult to Dr. Cotter for the left hand but he could see the patient for the right toe as well that would be appreciated. Wound cultures and blood cultures are pending. 11/18/2020 Wound care per direction of wound care services she is well known to them RN to continue wound care daily 11/19/2020 Seen again by plastic surgeon Anticipate surgery Saturday or Saturday of next week (3) Long-term current use of insulin for diabetes mellitus: Code(s): Z79.4 - [facility] (current) use of insulin; E11.9 - Type 2 diabetes mellitus without complications Status: Chronic Assessment and Plan: Accu-Cheks AC and HS. The patient stated that her blood sugars have been ranging anywhere from 71-247. It is not known what her A1c is but will check it. The patient stated that she uses a sliding scale insulin at home. We are verifying home medications at this time 11/18/2020 Glucose at goal continue current care 11/19/2020 Glucose remains at goal (4) Major depressive disorder, single episode, unspecified: Code(s): F32.9 - Major depressive disorder, single episode, unspecified Status: Chronic Assessment and Plan: the patient takes venlafaxine and we can continue with that. (5) CKD (chronic kidney disease) stage 3, GFR 30-59 ml/min: Code(s): N18.3 - Chronic kidney disease, stage 3 (moderate) Status: Chronic Assessment and Plan: Patient is at her baseline continue to monitor. (6) Chronic venous stasis dermatitis of both lower extremities: Code(s): I87.2 - Venous insufficiency (chronic) (peripheral) Status: Chronic Assessment and Plan: Wound care consult has been placed and they will continue to manage her chronic venous stasis ulcers to her lower extremities bilaterally. (7) Anxiety: Code(s): F41.9 - Anxiety disorder, unspecified Status: Chronic Assessment and Plan: Continue with her venlafaxine (8) Occlusion and stenosis of unspecified carotid artery: Code(s): I65.29 - Occlusion and stenosis of unspecified carotid artery Status: Acute Assessment and Plan: patient was seeing Dr. Shelton outpatient continue with home medications. (9) Dyslipidemia: Code(s): E78.5 - Hyperlipidemia, unspecified Status: Chronic Assessment and Plan: Continue with home medication (10
[2020-11-19 20:08] VITALS: BP 116/45; PULSE 78; RESP 14; TEMP 36; O2SAT 100
[2020-11-19] MEDS: ATORVASTATIN 20 MG TABLET PO (22:36)
[2020-11-19] MEDS: VENLAFAXINE HCL XR 75 MG CAP.ER.24H PO (22:36)
[2020-11-19] MEDS: MONTELUKAST SODIUM 10 MG TABLET PO (22:37)
[2020-11-19 22:44] LABS: Glucose Point of Care 92 (65-105)
[2020-11-20 05:44] VITALS: BP 141/44; PULSE 73; RESP 12; TEMP 36.2; O2SAT 100
[2020-11-20] MEDS: CYCLOBENZAPRINE HCL 10 MG TABLET PO ×3 (06:39→21:17)
--- NOTE | 2020-11-20 07:20 | PC.NURSE ---
Patient hypoglycemic; refused oral glucose gel and apple juice. Agreed to orange juice and mary crackers. Breakfast has been ordered and glucose will be re-checked.
[2020-11-20 07:46] LABS: Glucose Point of Care 59 (65-105)
[2020-11-20 07:46] LABS: Glucose Point of Care < 20 (65-105)
[2020-11-20 07:50] LABS: Glucose Point of Care 72 (65-105)
--- NOTE | 2020-11-20 07:51 | PC.NURSE ---
Call to Dr. Kinsey to notify that glucometer demonstrated glucose of 15, which was believed to be inaccurate. Glucose checked again with a different glucometer with result of 72. Patient is not symptomatic of hypoglycemia at present. RN will continue to monitor.
[2020-11-20] MEDS: MIRABEGRON 50 MG ER TABLET PO (08:09)
[2020-11-20] MEDS: FERROUS SULFATE 324 MG TABLET PO ×3 (08:09→17:13)
[2020-11-20] MEDS: busPIRone HCL 5 MG TABLET PO (08:09)
[2020-11-20 08:10] VITALS: PULSE 73
[2020-11-20] MEDS: VALSARTAN 40 MG TABLET PO ×2 (08:10→20:18)
[2020-11-20] MEDS: VENLAFAXINE HCL XR 75 MG CAP.ER.24H 150 MG PO (08:10)
[2020-11-20] MEDS: hydroCHLOROthiazide 25 MG TABLET PO (08:10)
[2020-11-20] MEDS: ASPIRIN 81 MG ENTERIC TABLET PO ×2 (08:10→17:13)
[2020-11-20] MEDS: METOPROLOL SUCCINATE EXT REL 25 MG TABCR PO (08:10)
[2020-11-20] MEDS: LORATADINE 10 MG TABLET PO (08:10)
[2020-11-20] MEDS: SILVERGEL (ELTA) 45 ML 1 APPLIC TOPICAL (08:10)
[2020-11-20] MEDS: ASCORBIC ACID 500 MG TABLET PO (08:11)
[2020-11-20] MEDS: HOME MEDICATION 1 EACH PO (08:11)
[2020-11-20] MEDS: PANTOPRAZOLE 40 MG TABLET PO (08:11)
[2020-11-20] MEDS: metFORMIN HCL 500 MG TABLET 1000 MG PO (08:11)
[2020-11-20] MEDS: OMEGA 3 POLYUNSAT FATTY ACIDS 1 GM CAP PO ×2 (08:11→20:18)
[2020-11-20] MEDS: INSULIN GLARGINE (*BKC) 100 UNITS/ML 30 UNITS SUB-Q (08:11)
[2020-11-20 12:01] LABS: Glucose Point of Care 112 (65-105)
[2020-11-20] MEDS: LORazepam INJ (*CRX) 2 MG/ML VIAL 1 MG IV PUSH (13:08)
[2020-11-20 14:30] VITALS: BP 112/50; PULSE 70; RESP 14; TEMP 36.5; O2SAT 90
[2020-11-20] MEDS: CENTRAL LINE FLUSH 10 ML IV PUSH ×2 (14:57→21:17)
[2020-11-20 16:36] LABS: Glucose Point of Care 62 (65-105)
[2020-11-20 17:07] LABS: Glucose Point of Care 57 (65-105)
[2020-11-20 17:07] LABS: Glucose Point of Care 48 (65-105)
--- NOTE | 2020-11-20 17:10 | PM.IMPN ---
Progress Note: A&P Assessment and Plan (1) Cellulitis of finger of left hand: Code(s): L03.012 - Cellulitis of left finger Status: Acute Assessment and Plan: the patient stated that she has seen Dr. Cotter in the past for infection to her left pinky. She has also seen Dr. richardson in the past and had a PICC line in the past. x-ray of that left hand -> osteomyelitis She was started on vancomycin and Primaxin per antibiotic protocol and Dr Richardson consulted blood cultures negative Wound cultures for hand are + for Staph aureus PICC line inserted waiting for decision about amputation versus discharge with outpatient IV antibiotics (2) Wound of right lower extremity: Qualifiers: Encounter type: initial encounter Qualified Code(s): S81.801A - Unspecified open wound, right lower leg, initial encounter Code(s): S81.801A - Unspecified open wound, right lower leg, initial encounter Status: Acute Assessment and Plan: The patient was treated outpatient with clindamycin for several weeks. She has had no improvement and has failed outpatient therapy. start her on vancomycin and Primaxin and consult placed to Dr. richardson. Dr. 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 patient with multiple episodes of hypoglycemia today. Review of medical record shows that she is on 30 units of Lantus to b.i.d. metformin and Jardiance these have been discontinued patient has been placed on insulin sliding scale with Lantus 10 units b.i.d. until further titration can be safely performed (4) Major depressive disorder, single episode, unspecified: Code(s): F32.9 - Major depressive disorder, single episode, unspecified Status: Chronic Assessment and Plan: the patient takes venlafaxine and we can continue with that. (5) CKD (chronic kidney disease) stage 3, GFR 30-59 ml/min: Code(s): N18.3 - Chronic kidney disease, stage 3 (moderate) Status: Chronic Assessment and Plan: Patient is at her baseline continue to monitor. (6) Chronic venous stasis dermatitis of both lower extremities: Code(s): I87.2 - Venous insufficiency (chronic) (peripheral) Status: Chronic Assessment and Plan: Wound care consult has been placed and they will continue to manage her chronic venous stasis ulcers to her lower extremities bilaterally. (7) Anxiety: Code(s): F41.9 - Anxiety disorder, unspecified Status: Chronic Assessment and Plan: Continue with her venlafaxine (8) Occlusion and stenosis of unspecified carotid artery: Code(s): I65.29 - Occlusion and stenosis of unspecified carotid artery Status: Acute Assessment and Plan: patient was seeing Dr. Shelton outpatient continue with home medications. (9) Dyslipidemia: Code(s): E78.5 - Hyperlipidemia, unspecified Status: Chronic Assessment and Plan: Continue with home medication (10) Anemia: Code(s): D64.9 - Anemia, unspecified Status: Acute Assessment and Plan: Continue to monitor. The patient appears to be at her baseline. Continue with home medications. Time Spent With Patient Time with patient: 25 - 35 minutes Subjective Date/time seen: 11/20/20 17:10 Patient having recurring episodes of hypoglycemia unclear what the etiology of this is she is on oral antihyperglycemics however the dose is not high and she is tolerating p.o.. Stat lab glucose drawn and half amp of D50 ordered repeat glucose was 70 no D50 was given pa
[2020-11-20] MEDS: DEXTROSE 50% 25 GM/50 ML SYRINGE IV PUSH (17:18)
[2020-11-20] MEDS: ENOXAPARIN 40 MG/0.4 ML SYRINGE SUB-Q (17:19)
[2020-11-20 17:32] LABS: Glucose 71 mg/dL (65-105)
[2020-11-20 20:04] VITALS: BP 110/77; PULSE 78; RESP 18; TEMP 36.1; O2SAT 98
[2020-11-20] MEDS: ATORVASTATIN 20 MG TABLET PO (20:18)
[2020-11-20] MEDS: MONTELUKAST SODIUM 10 MG TABLET PO (20:18)
[2020-11-20] MEDS: VENLAFAXINE HCL XR 75 MG CAP.ER.24H PO (20:18)
[2020-11-20] MEDS: INSULIN GLARGINE (*BKC) 100 UNITS/ML 10 UNITS SUB-Q (20:21)
[2020-11-20 20:36] LABS: Glucose Point of Care 125 (65-105)
[2020-11-21 04:38] VITALS: BP 128/48; PULSE 60; RESP 16; TEMP 36.4; O2SAT 96
[2020-11-21] MEDS: CENTRAL LINE FLUSH 10 ML IV PUSH ×2 (05:02→14:25)
[2020-11-21] MEDS: CYCLOBENZAPRINE HCL 10 MG TABLET PO ×2 (05:02→14:21)
[2020-11-21 07:29] LABS: Glucose Point of Care 54 (65-105)
[2020-11-21 07:45] LABS: Glucose Point of Care 70 (65-105)
[2020-11-21] MEDS: MIRABEGRON 50 MG ER TABLET PO (08:30)
[2020-11-21] MEDS: FERROUS SULFATE 324 MG TABLET PO ×3 (08:30→16:56)
[2020-11-21] MEDS: VALSARTAN 40 MG TABLET PO (08:30)
[2020-11-21 08:33] VITALS: PULSE 60
[2020-11-21] MEDS: ASPIRIN 81 MG ENTERIC TABLET PO ×2 (08:33→16:57)
[2020-11-21] MEDS: ASCORBIC ACID 500 MG TABLET PO (08:33)
[2020-11-21] MEDS: hydroCHLOROthiazide 25 MG TABLET PO (08:33)
[2020-11-21] MEDS: METOPROLOL SUCCINATE EXT REL 25 MG TABCR PO (08:33)
[2020-11-21] MEDS: PANTOPRAZOLE 40 MG TABLET PO (08:33)
[2020-11-21] MEDS: OMEGA 3 POLYUNSAT FATTY ACIDS 1 GM CAP PO (08:33)
[2020-11-21 08:34] LABS: Hematocrit 30.3 % (37.0-47.0); Hemoglobin 9.5 g/dL (12.0-15.0); Mean Corpuscular HGB Conc 31.4 g/dl (32-36); Mean Corpuscular Hemoglobin 25.3 pg (26-34); Mean Corpuscular Volume 80.8 fl (80-100); Mean Platelet Volume 9.4 fl (7.4-10.4); Platelet Count Result 270 k/mm3 (150-375); Red Blood Count 3.75 M/mm3 (4.2-5.4); Red Cell Distribution Width 13.8 % (11.5-14.5); White Blood Count 6.9 K/mm3 (4.5-10.0)
[2020-11-21] MEDS: LORATADINE 10 MG TABLET PO (08:34)
[2020-11-21] MEDS: VENLAFAXINE HCL XR 75 MG CAP.ER.24H 150 MG PO (08:34)
[2020-11-21] MEDS: busPIRone HCL 5 MG TABLET PO (08:34)
[2020-11-21 08:44] LABS: Anion Gap 6 mmol/L (8-16); Blood Urea Nitrogen 25 mg/dL (7-17); Calcium 8.6 mg/dL (8.4-10.2); Carbon Dioxide 36 mmol/L (22-30); Chloride 97 mmol/L (98-107); Estimated CRCL calculation 53 ml/min; Estimated Glomerular Filt Rate > 60; Glucose 164 mg/dL (65-105); Potassium 4.1 mmol/L (3.4-5.0); Sodium 139 mmol/L (137-145)
[2020-11-21 12:31] LABS: Glucose Point of Care 102 (65-105)
--- NOTE | 2020-11-21 12:34 | WPDPN ---
Progress Note: A&P Assessment and Plan (1) Osteomyelitis of finger of left hand: Code(s): M86.9 - Osteomyelitis, unspecified Status: Acute Assessment and Plan: Will let pt be discharged to continue PICC antibiotics to gain better control of likely amputation sites. Probably single digit amputations. Will f/u with her in my office in two weeks to check on wounds. Continue dressing care per [facility]. Will hold amputations until near termination of IV antibiotics. (2) Osteomyelitis of toe of right foot: Code(s): M86.9 - Osteomyelitis, unspecified Status: Acute Exam Narrative: Exam Narrative: Wound cx. with Staph a, Sensitivities pending. CT of foot shows osteolysis of the distal phalanx of 2nd toe. No evidence of proximal spread. Plain films of hand show osteolysis of the distal phalanx of middle finger as well. Cellulitis better controlled now. Severe lymphedema of the right LE. Objective Data Vital Signs Vital Signs: Vital Signs - 24 hr 11/20/20 14:30 11/20/20 20:04 11/21/20 04:38 Temperature 36.5 C 36.1 C L 36.4 C Pulse Rate 70 78 60 Respiratory Rate 14 18 16 Blood Pressure 112/50 L 110/77 128/48 L Pulse Oximetry 90 98 96 11/21/20 08:33 Temperature Pulse Rate 60 Respiratory Rate Blood Pressure Pulse Oximetry Intake/Output Intake/Output: Intake & Output 11/18/20 11/19/20 11/20/20 11/21/20 23:59 23:59 23:59 23:59 Intake Total 2260 2470 1630 440 Output Total 1500 2200 2075 Balance 760 270 -445 440 Meds/Results Medications: Active Medications Generic Name Dose Route Start Last Admin Trade Name Freq PRN Reason Stop Dose Admin Acetaminophen 650 mg 11/18/20 15:30 11/18/20 15:55 Acetaminophen 325 Mg Tablet PO 650 mg Q6H PRN Administration Mild Pain (1-3) or Fever Ascorbic Acid 500 mg 11/18/20 09:00 11/21/20 08:33 Ascorbic Acid 500 Mg Tablet PO 12/18/20 09:01 500 mg DAILY ESTER Administration Aspirin 81 mg 11/18/20 09:00 11/21/20 08:33 Aspirin 81 Mg Enteric Tablet PO 81 mg BID ESTER Administration Atorvastatin Calcium 20 mg 11/17/20 21:00 11/20/20 20:18 Atorvastatin 20 Mg Tablet PO 20 mg HS ESTER Administration Buspirone HCl 5 mg 11/17/20 19:37 11/21/20 08:34 Buspirone Hcl 5 Mg Tablet PO 5 mg BID PRN Administration Anxiety Cyclobenzaprine HCl 10 mg 11/17/20 22:00 11/21/20 05:02 Cyclobenzaprine Hcl 10 Mg Tablet PO 10 mg Q8HR ESTER Administration Dextrose 12.5 gm 11/17/20 14:07 11/20/20 17:18 Dextrose 50% 25 Gm/50 Ml Syringe IV PUSH 12.5 gm PRN PRN Administration Hypoglycemia Protocol Docusate Sodium 100 mg 11/17/20 19:37 Docusate Sodium 100 Mg Capsule PO DAILY PRN Constipation Enoxaparin Sodium 40 mg 11/17/20 18:00 11/20/20 17:19 Enoxaparin 40 Mg/0.4 Ml Syringe SUB-Q 40 mg Q24H ESTER Administration Ferrous Sulfate 324 mg 11/18/20 08:00 11/21/20 08:30 Ferrous Sulfate 324 Mg Tablet PO 324 mg TIDWM ESTER Administration Fish Oil 1 gm 11/17/20 21:00 11/21/20 08:33 Crosby 3 Polyunsat Fatty Acids 1 Gm Cap PO 1 gm Q12HR ESTER Administration Glucagon 1 mg 11/17/20 14:07 Glucagon For Inj 1 Mg Vial IM PRN PRN Hypoglycemia Protocol Glucose 15 gm 11/17/20 14:07 Glucose Oral Gel 15 Gm Of Glucse In 37.5 Gm Tube PO PRN PRN Hypoglycemia Protocol Hydrochlorothiazide 25 mg 11/18/20 09:00 11/21/20 08:33 Hydrochlorothiazide 25 Mg Tablet PO 25 mg DAILY ESTER Administration Dextrose 1,000 mls @ 100 mls/hr 11/17/20 14:07 Dextrose 5% 1,000 Ml IVPB PRN PRN Hypoglycemia Protocol Ceftriaxone Sodium 2 gm in 100 mls @ 200 mls/hr 11/18/20 18:00 11/20/20 18:06 Rocephin 2 Gm/D5w 100 Ml IVPB Infused Q24H ESTER Infusion Insulin Aspart 2 - 5 units 11/17/20 17:00 11/21/20 07:36 Insulin Aspart (*Bkc) 100 Units/Ml SUB-Q Not Given TIDWM [facility] Protocol Insulin
[2020-11-21] MEDS: SILVERGEL (ELTA) 45 ML 1 APPLIC TOPICAL (12:37)
[2020-11-21 14:00] VITALS: BP 130/52; PULSE 68; RESP 16; TEMP 36.1; O2SAT 98
--- NOTE | 2020-11-21 14:34 | PM.DS ---
DS: Admitting Diagnosis Admitting Diagnosis Admitting Diagnosis: Chief Complaint: Infection to right 2nd toe and 3rd finger on the left DS: Discharge Diagnosis Discharge Diagnosis (1) Cellulitis of finger of left hand: Code(s): L03.012 - Cellulitis of left finger Status: Acute Assessment and Plan: the patient stated that she has seen Dr. Cotter in the past for infection to her left pinky. She has also seen Dr. leon in the past and had a PICC line in the past. x-ray of that left hand -> osteomyelitis She was started on vancomycin and Primaxin per antibiotic protocol and Dr Leon consulted blood cultures negative Wound cultures for hand are + for Staph aureus PICC line inserted waiting for decision about amputation versus discharge with outpatient IV antibiotics (2) Wound of right lower extremity: Qualifiers: Encounter type: initial encounter Qualified Code(s): S81.801A - Unspecified open wound, right lower leg, initial encounter Code(s): S81.801A - Unspecified open wound, right lower leg, initial encounter Status: Acute Assessment and Plan: The patient was treated outpatient with clindamycin for several weeks. She has had no improvement and has failed outpatient therapy. start her on vancomycin and Primaxin and consult placed to Dr. leon. Dr. Cotter for the left hand but he could see the patient for the right toe as well Wound cultures for foot are + for Staph aureus waiting for decision about amputation versus discharge with outpatient IV antibiotics (3) Long-term current use of insulin for diabetes mellitus: Code(s): Z79.4 - [facility] (current) use of insulin; E11.9 - Type 2 diabetes mellitus without complications Status: Chronic Assessment and Plan: Accu-Cheks AC and HS. patient with multiple episodes of hypoglycemia today. Review of medical record shows that she is on 30 units of Lantus to b.i.d. metformin and Jardiance these have been discontinued patient has been placed on insulin sliding scale with Lantus 10 units b.i.d. until further titration can be safely performed (4) Major depressive disorder, single episode, unspecified: Code(s): F32.9 - Major depressive disorder, single episode, unspecified Status: Chronic Assessment and Plan: the patient takes venlafaxine and we can continue with that. (5) CKD (chronic kidney disease) stage 3, GFR 30-59 ml/min: Code(s): N18.3 - Chronic kidney disease, stage 3 (moderate) Status: Chronic Assessment and Plan: Patient is at her baseline continue to monitor. (6) Chronic venous stasis dermatitis of both lower extremities: Code(s): I87.2 - Venous insufficiency (chronic) (peripheral) Status: Chronic Assessment and Plan: Wound care consult has been placed and they will continue to manage her chronic venous stasis ulcers to her lower extremities bilaterally. (7) Anxiety: Code(s): F41.9 - Anxiety disorder, unspecified Status: Chronic Assessment and Plan: Continue with her venlafaxine (8) Occlusion and stenosis of unspecified carotid artery: Code(s): I65.29 - Occlusion and stenosis of unspecified carotid artery Status: Acute Assessment and Plan: patient was seeing Dr. Shelton outpatient continue with home medications. (9) Dyslipidemia: Code(s): E78.5 - Hyperlipidemia, unspecified Status: Chronic Assessment and Plan: Continue with home medication (10) Anemia: Code(s): D64.9 - Anemia, unspecified Status: Acute Assessment and Plan: Continue to monitor. The patient appears to be at her baseline. Continue with home medications. DS: Summary Hospital Course Reason for hospitalization: this is a 70-year-old female patient who came from her primary care doctor's office today. Her doctor is Dr. Price. She was seeing the PA there today. The patient was se
[2020-11-21 15:45] LABS: Glucose Point of Care 177 (65-105)
[2020-11-21] MEDS: ENOXAPARIN 40 MG/0.4 ML SYRINGE SUB-Q (17:00)
== END 2020-11-21 18:47 | disposition home health service (06) | DRG 603 ==
PROVIDERS: Hospitalist; Nurse Practitioner; Admitting Provider Internal Medicine; PCP Family Medicine; Visit Provider Family Medicine
DX: L03.012 Cellulitis of left finger (principal); S81.801A Unspecified open wound, right lower leg, initial encounter; B95.61 Methicillin susceptible Staphylococcus aureus infection as the cause of diseases classified elsewhere; I69.320 Aphasia following cerebral infarction; E11.42 Type 2 diabetes mellitus with diabetic polyneuropathy; I87.2 Venous insufficiency (chronic) (peripheral); E78.5 Hyperlipidemia, unspecified; D64.9 Anemia, unspecified; I65.29 Occlusion and stenosis of unspecified carotid artery; E11.22 Type 2 diabetes mellitus with diabetic chronic kidney disease; I12.9 Hypertensive chronic kidney disease with stage 1 through stage 4 chronic kidney disease, or unspecified chronic kidney disease; N18.30 Chronic kidney disease, stage 3 unspecified; H40.9 Unspecified glaucoma; G47.33 Obstructive sleep apnea (adult) (pediatric); E53.8 Deficiency of other specified B group vitamins; F32.9 Major depressive disorder, single episode, unspecified; F41.9 Anxiety disorder, unspecified; Z79.4 Long term (current) use of insulin; Z79.82 Long term (current) use of aspirin; Z79.899 Other long term (current) drug therapy; Z85.528 Personal history of other malignant neoplasm of kidney; Z96.82 Presence of neurostimulator; Z98.49 Cataract extraction status, unspecified eye; Z88.1 Allergy status to other antibiotic agents
CPT/HCPCS: 36415; 36569; 73120; 73701; 80048; 82947; 82948; 83036; 83605; 83735; 85025; 85027; 87040; 87070; 87147; 87186; 87205; A9270; C1751; J0696; J0743; J1650; J1815; J2060; J3370; Q9967

== ENCOUNTER 2020-11-25 17:36 | Emergency (ER) | payer MEDICARE, OTHER, SELFPAY ==
[2020-11-25 17:47] VITALS: BP 138/80; PULSE 80; RESP 18; TEMP 36.6; O2SAT 94
--- NOTE | 2020-11-25 17:48 | ED.GENADULT ---
HPI - General Adult General Chief complaint: Unspecified Stated complaint: picc line in arm bleeding Source: patient and RN notes reviewed Mode of arrival: ambulatory Limitations: no limitations History of Present Illness HPI narrative: Patient had a PICC line put in and then was out shopping today. She noticed a couple hours ago that there was some blood underneath Tegaderm. She is concerned that it came out. Or that it was coming out. She is here for the PICC line to be evaluated. She has no other complaints MD complaint: Picc Line coming out Onset (ago): hour(s) (2) Related Data Home Medications Medication Instructions Recorded Confirmed aspirin 81 mg tablet,delayed 81 mg PO BID 06/22/19 11/17/20 release ferrous sulfate 325 mg (65 mg 325 mg PO TID tablet 06/22/19 11/17/20 iron) tablet insulin glargine 100 unit/mL 30 unit SUB-Q BID ml 06/22/19 11/17/20 subcutaneous solution Flexeril 10 mg PO TID 11/17/20 11/17/20 Jardiance 25 mg PO DAILY 11/17/20 11/17/20 Lumigan 1 drp EACH EYE DAILY 11/17/20 11/17/20 ascorbate calcium (vitamin C) 500 mg PO DAILY 11/17/20 11/17/20 atorvastatin 20 mg PO HS 11/17/20 11/17/20 buspirone 5 mg PO BID PRN 11/17/20 11/17/20 montelukast [Singulair] 10 mg PO HS 11/17/20 11/17/20 omega-3 acid ethyl esters [Lovaza] 1 cap PO BID 11/17/20 11/17/20 omega-3 acid ethyl esters [Lovaza] 1 cap PO BID 11/17/20 11/17/20 Allergies Allergy/AdvReac Type Severity Reaction Status Date / Time oxybutynin Allergy Intermediate PROBLEMS Verified 11/17/20 11:05 BREATHING fexofenadine Allergy Unknown UPPER RESP Verified 11/17/20 11:05 INFECTION lisinopril Allergy Unknown TONGUE Verified 11/17/20 11:05 Swelling paroxetine Allergy Unknown NIGHT Verified 11/17/20 11:05 SWEATS tizanidine Allergy Unknown blurred Verified 11/17/20 11:05 vision trimethoprim Allergy Unknown Unknown Verified 11/17/20 11:05 cephalexin AdvReac Intermediate Diarrhea; Verified 11/21/20 08:36 Abdominal Pain bupropion AdvReac Unknown Nervousness Verified 11/21/20 08:36 Review of Systems Review of Systems: All systems reviewed & are unremarkable except as noted in HPI and below PMFSH Past Medical History Medical History Anemia Anxiety Chronic kidney disease Chronic venous stasis dermatitis of both lower extremities CKD (chronic kidney disease) stage 3, GFR 30-59 ml/min CVA (cerebral vascular accident) Diabetes type 2, controlled Diverticulosis DM renal manif type II, uncontrolled Dyslipidemia History of renal cell cancer removed surgically bilaterally no chemo or radiation History of stroke with current residual effects expressive aphasia which cleared up with speech therapy Hypertension Kidney malignant neoplasm Long-term current use of insulin for diabetes mellitus Major depressive disorder, single episode, unspecified ANA (obstructive sleep apnea) Intolerant to CPAP machine Osteomyelitis of great toe of left foot Presence of neurostimulator in her back as well as a pain pump. Right femoral fracture ORIF S/P ORIF (open reduction internal fixation) fracture right hip Sleep apnea Venous stasis dermatitis of both lower extremities Vitamin B12 deficiency Surgical History Surgical History History of arthroplasty of right shoulder History of carpal tunnel release History of cataract extraction History of laparotomy History of total right hip arthroplasty Hx of cholecystectomy S/P cubital tunnel release Family History Family History Father Family history of coronary artery disease Family history of heart disease in male family member before age 55 Cerebrovascular accident Sibling Family history of coronary artery disease Mother Family history of obesity Other Depression Diabetes mellitus Family history of cardio
--- NOTE | 2020-11-25 18:08 | PC.NURSE ---
MD removed tegaderm with regular gloves and manipulated the picc line. applied a new tegaderm and had publicity writer flush site. Both lines flushed well
[2020-11-25 18:11] VITALS: BP 140/73; PULSE 88; RESP 20; TEMP 36.3
== END 2020-11-25 18:12 | disposition home or self-care (01) ==
PROVIDERS: Emergency Provider Emergency Medicine; PCP Family Medicine
DX: T82.594A Other mechanical complication of infusion catheter, initial encounter (principal); I12.9 Hypertensive chronic kidney disease with stage 1 through stage 4 chronic kidney disease, or unspecified chronic kidney disease; N18.9 Chronic kidney disease, unspecified; E11.9 Type 2 diabetes mellitus without complications; E78.5 Hyperlipidemia, unspecified; Z87.891 Personal history of nicotine dependence
CPT/HCPCS: 99282

== ENCOUNTER 2020-12-12 22:01 | Emergency (ER) | payer MEDICARE, OTHER, SELFPAY ==
[2020-12-12 22:34] VITALS: BP 130/80; PULSE 80; RESP 20; TEMP 36.6; O2SAT 94
--- NOTE | 2020-12-12 22:38 | ED.GENADULT ---
HPI - General Adult General Chief complaint: Unspecified Stated complaint: problem with iv in right arm Source: patient and RN notes reviewed Mode of arrival: ambulatory Limitations: no limitations History of Present Illness HPI narrative: patient noticed that she had as significant amount of blood underneath the Tegaderm of her PICC line. When she called home health a suggested she come to the emergency room for evaluation of her PICC line. MD complaint: Blood under PICC line Onset (ago): hour(s) (2) Exacerbating factors: none and movement Associated symptoms: denies other symptoms Treatments prior to arrival: none Related Data Home Medications Medication Instructions Recorded Confirmed aspirin 81 mg tablet,delayed 81 mg PO BID 06/22/19 11/17/20 release ferrous sulfate 325 mg (65 mg 325 mg PO TID tablet 06/22/19 11/17/20 iron) tablet insulin glargine 100 unit/mL 30 unit SUB-Q BID ml 06/22/19 11/17/20 subcutaneous solution Jardiance 25 mg PO DAILY 11/17/20 11/17/20 Lumigan 1 drp EACH EYE DAILY 11/17/20 11/17/20 ascorbate calcium (vitamin C) 500 mg PO DAILY 11/17/20 11/17/20 atorvastatin 20 mg PO HS 11/17/20 11/17/20 buspirone 5 mg PO BID PRN 11/17/20 11/17/20 montelukast [Singulair] 10 mg PO HS 11/17/20 11/17/20 Allergies Allergy/AdvReac Type Severity Reaction Status Date / Time oxybutynin Allergy Intermediate PROBLEMS Verified 11/17/20 11:05 BREATHING fexofenadine Allergy Unknown UPPER RESP Verified 11/17/20 11:05 INFECTION lisinopril Allergy Unknown TONGUE Verified 11/17/20 11:05 Swelling paroxetine Allergy Unknown NIGHT Verified 11/17/20 11:05 SWEATS tizanidine Allergy Unknown blurred Verified 11/17/20 11:05 vision trimethoprim Allergy Unknown Unknown Verified 11/17/20 11:05 cephalexin AdvReac Intermediate Diarrhea; Verified 11/21/20 08:36 Abdominal Pain bupropion AdvReac Unknown Nervousness Verified 11/21/20 08:36 Review of Systems Review of Systems: All systems reviewed & are unremarkable except as noted in HPI and below PMFSH Past Medical History Medical History Anemia Anxiety Chronic kidney disease Chronic venous stasis dermatitis of both lower extremities CKD (chronic kidney disease) stage 3, GFR 30-59 ml/min CVA (cerebral vascular accident) Diabetes type 2, controlled Diverticulosis DM renal manif type II, uncontrolled Dyslipidemia History of renal cell cancer removed surgically bilaterally no chemo or radiation History of stroke with current residual effects expressive aphasia which cleared up with speech therapy Hypertension Kidney malignant neoplasm Long-term current use of insulin for diabetes mellitus Major depressive disorder, single episode, unspecified ANA (obstructive sleep apnea) Intolerant to CPAP machine Osteomyelitis of great toe of left foot Presence of neurostimulator in her back as well as a pain pump. Right femoral fracture ORIF S/P ORIF (open reduction internal fixation) fracture right hip Sleep apnea Venous stasis dermatitis of both lower extremities Vitamin B12 deficiency Surgical History Surgical History History of arthroplasty of right shoulder History of carpal tunnel release History of cataract extraction History of laparotomy History of total right hip arthroplasty Hx of cholecystectomy S/P cubital tunnel release Family History Family History Father Family history of coronary artery disease Family history of heart disease in male family member before age 55 Cerebrovascular accident Sibling Family history of coronary artery disease Mother Family history of obesity Other Depression Diabetes mellitus Family history of cardiovascular disease Family history of glaucoma Hypertension Social History Social History (Reviewed 12/12/20 @ 22:47 by
[2020-12-12 22:54] VITALS: BP 120/88; PULSE 88; RESP 18; TEMP 36.3; O2SAT 95
== END 2020-12-12 22:55 | disposition home or self-care (01) ==
PROVIDERS: Emergency Provider Emergency Medicine; PCP Family Medicine
DX: T82.898A Other specified complication of vascular prosthetic devices, implants and grafts, initial encounter (principal)
CPT/HCPCS: 99282

== ENCOUNTER 2021-01-04 10:02 | Outpatient (CLI) | payer MEDICARE, SELFPAY ==
[2021-01-04 10:25] LABS: Basophils Absolute Auto 0.06 K/mm3 (0.00-0.10); Basophils Percent Auto 0.8 % (0.0-1.0); Hemoglobin 10.5 g/dL (11.7-13.8); Immature Granulocyte Absolute 0.02 K/mm3 (0.00-0.00); Immature Granulocyte Percent A 0.3 % (0.0-0.0); Lymphocytes Absolute Auto 1.73 K/mm3 (1.10-4.50); Mean Corpuscular HGB Conc 30.9 g/dL (32.0-36.0); Mean Corpuscular Hemoglobin 25.2 pg (27.0-31.0); Mean Corpuscular Volume 81.5 fL (78.0-102.0); Mean Platelet Volume 10.7 fl (9.2-11.8); Monocytes Absolute Auto 0.61 K/mm3 (0.10-0.90); Monocytes Percent Auto 8.1 % (2.0-11.0); Neutrophils Absolute Auto 4.5 K/mm3 (1.7-7.2); Neutrophils Percent Auto 59.8 % (50.0-70.0); Platelet Count Result 201 K/mm3 (150-420); Red Blood Count 4.17 M/mm3 (4.20-5.40); Red Cell Distribution Width 14.7 % (11.6-14.4); White Blood Count 7.5 K/mm3 (4.8-10.8)
[2021-01-04 10:33] LABS: Hemoglobin A1C 7.9 % (<5.7)
[2021-01-04 11:16] LABS: Alanine Aminotransferase 18 U/L (14-59); Albumin Level 3.3 g/dL (3.4-5.0); Alkaline Phosphatase 77 U/L (46-116); Anion Gap 5 mmol/L (8-16); Aspartate Amino Transferase < 10 U/L (15-37); Bilirubin,Total 0.2 mg/dL (0.00-1.00); Blood Urea Nitrogen 15 mg/dL (7-18); Calcium 8.7 mg/dL (8.5-10.1); Carbon Dioxide 34 mmol/L (21-32); Chloride 103 mmol/L (98-108); Estimated Glomerular Filt Rate > 60; Free T4 Free Thyroxine 0.92 ng/dL (0.76-1.46); Glucose 99 mg/dL (70-99); Osmolality Calculated 294 mOsm/kg (285-295); Potassium 4.4 mmol/L (3.5-5.1); Sodium 142 mmol/L (136-145); Thyroid Stimulating Hormone 4.93 uIU/mL (0.36-3.74); Total Protein 6.8 g/dL (6.4-8.2)
== END 2021-01-04 10:03 | disposition home or self-care (01) ==
PROVIDERS: PCP Family Medicine
DX: E11.42 Type 2 diabetes mellitus with diabetic polyneuropathy (principal); Z79.4 Long term (current) use of insulin; E03.9 Hypothyroidism, unspecified
CPT/HCPCS: 36415; 80053; 83036; 84439; 84443; 85025

== ENCOUNTER 2021-01-12 07:25 | Outpatient (RCR) | payer MEDICARE, OTHER, SELFPAY | END 2021-01-30 23:59 | disposition home or self-care (01) | LOC: ANHWOC 07:25 | PROVIDERS: PCP Family Medicine; Visit Provider Plastic Surgery | DX: L97.919 Non-pressure chronic ulcer of unspecified part of right lower leg with unspecified severity (principal); L97.929 Non-pressure chronic ulcer of unspecified part of left lower leg with unspecified severity | CPT/HCPCS: 99213; A9270; G0463 ==

== ENCOUNTER 2021-01-12 13:56 | Outpatient (CLI) | payer MEDICARE, OTHER, SELFPAY ==
--- NOTE | ~2021-01-12 | XR_ITS ---
EXAMINATION: XR hand LT min 3V DATE: 01/12/2021 14:29 INDICATION: Osteomyelitis at the left third digit TECHNIQUE: Posteroanterior, oblique and lateral views of the left hand were obtained. COMPARISON: None. FINDINGS: The lunate and proximal pole of the scaphoid are not visualized and have likely been resected. There is severe osteoarthritis at the articulation of the capitate and distal pole of the scaphoid with the distal radius. There appears to been interval amputation of the soft tissues at the tip of the left third distal phalanx. No evident progression of the previously seen osteolysis involving the mid to d istal aspect of the third distal phalanx. There appears be new cortication along the previously irreg ular distal bone margin consistent with interval healing of prior osteomyelitis. No new osteolysis to suggest ongoing osteomyelitis. No evident joint space narrowing at the third distal interphalangeal joint to suggest septic arthritis. Additional mild osteoarthritis at the first carpometacarpal joint. Nonfocal soft tissue swelling throughout the third digit which is decreased since prior study. IMPRESSION: 1. Decreased soft tissue swelling at the left third digit with new cortication along the distal yvon n of the truncated left third distal phalanx suggesting resolution and healing of prior osteomyelitis . Reviewed, dictated and finalized at location A. IMPRESSION: 1. Decreased soft tissue swelling at the left third digit with new cortication along the distal margin of the truncated left third distal phalanx suggesting r esolution and healing of prior osteomyelitis.
== END 2021-01-12 13:57 | disposition home or self-care (01) ==
LOC: ANHIMG 14:14
PROVIDERS: PCP Family Medicine; Visit Provider Plastic Surgery
DX: M86.142 Other acute osteomyelitis, left hand (principal)
CPT/HCPCS: 73130; 99213; G0463

== ENCOUNTER 2021-02-02 15:04 | Outpatient (CLI) | payer MEDICARE, OTHER, SELFPAY ==
--- NOTE | ~2021-02-02 | XR_ITS ---
XR hip LT min 3V w AP pelvis 02/02/2021 15:34 Indication: Left hip pain Procedure: 4 views left hip Comparison: 08/04/2020 Findings: No fracture, subluxation or dislocation. Pelvic rings are intact. Sacral foramen are symmet junior. There is a battery pack overlying the right ilium. There is a dynamic compression screw transfix ing the right femoral neck. Impression: 1: No acute bone or joint abnormality. Reviewed, dictated and finalized at location B. Impression: 1: No acute bone or joint abnormality.
== END 2021-02-02 15:05 | disposition home or self-care (01) ==
LOC: ANHIMG 15:08
PROVIDERS: PCP Family Medicine; Visit Provider Physician Assistant
DX: M25.552 Pain in left hip (principal)
CPT/HCPCS: 73502

== ENCOUNTER 2021-04-14 08:12 | Outpatient (CLI) | payer MEDICARE, SELFPAY ==
[2021-04-14 11:31] LABS: Basophils Absolute Auto 0.05 K/mm3 (0.00-0.10); Basophils Percent Auto 0.5 % (0.0-1.0); Eosinophils Absolute Auto 0.39 K/mm3 (0.02-0.50); Eosinophils Percent Auto 4.2 % (1.0-6.0); Hematocrit 31.9 % (35.0-42.0); Hemoglobin 9.8 g/dL (11.7-13.8); Immature Granulocyte Absolute 0.05 K/mm3 (0.00-0.00); Immature Granulocyte Percent A 0.5 % (0.0-0.0); Lymphocytes Absolute Auto 1.33 K/mm3 (1.10-4.50); Lymphocytes Percent Auto 14.2 % (18.0-42.0); Mean Corpuscular HGB Conc 30.7 g/dL (32.0-36.0); Mean Corpuscular Hemoglobin 24.6 pg (27.0-31.0); Mean Corpuscular Volume 80.2 fL (78.0-102.0); Mean Platelet Volume 10.4 fl (9.2-11.8); Monocytes Absolute Auto 0.71 K/mm3 (0.10-0.90); Monocytes Percent Auto 7.6 % (2.0-11.0); Neutrophils Absolute Auto 6.8 K/mm3 (1.7-7.2); Platelet Count Result 254 K/mm3 (150-420); Red Blood Count 3.98 M/mm3 (4.20-5.40); Red Cell Distribution Width 14.4 % (11.6-14.4); White Blood Count 9.4 K/mm3 (4.8-10.8)
[2021-04-14 13:01] LABS: Anion Gap 8 mmol/L (8-16); Blood Urea Nitrogen 19 mg/dL (7-18); Calcium 8.4 mg/dL (8.5-10.1); Carbon Dioxide 30 mmol/L (21-32); Chloride 103 mmol/L (98-108); Estimated Glomerular Filt Rate > 60; Ferritin 80 ng/mL (8-252); Glucose 152 mg/dL (70-99); Osmolality Calculated 297 mOsm/kg (285-295); Potassium 4.6 mmol/L (3.5-5.1); Sodium 141 mmol/L (136-145); Vitamin B12 365 pg/mL (193-986)
[2021-04-14 13:02] LABS: Folic Acid > 20.0 ng/mL (8.6->20)
[2021-04-18 10:17] LABS: Immunoglobulin A 377 mg/dL (70-320); Immunoglobulin G 1003 mg/dL (600-1540); Immunoglobulin M 104 mg/dL (50-300)
== END 2021-04-14 08:13 | disposition home or self-care (01) ==
PROVIDERS: PCP Family Medicine; Visit Provider Internal Medicine Hematology & Oncology
DX: D50.9 Iron deficiency anemia, unspecified (principal)
CPT/HCPCS: 36415; 80048; 82607; 82728; 82746; 82784; 85025

== ENCOUNTER 2021-05-02 07:32 | Outpatient (RCR) | payer MEDICARE, OTHER, SELFPAY ==
--- NOTE | 2021-03-16 08:08 | PCWOUND ---
WOCN NOTE patient called to cancel appointment due to illness. States she will call back later to reschedule once she's feeling better.
== END 2021-05-10 23:59 | disposition home or self-care (01) ==
LOC: ANHWOC 07:32
PROVIDERS: PCP Family Medicine; Visit Provider Plastic Surgery
DX: L97.919 Non-pressure chronic ulcer of unspecified part of right lower leg with unspecified severity (principal); L97.929 Non-pressure chronic ulcer of unspecified part of left lower leg with unspecified severity
CPT/HCPCS: 29581; 99212; G0463

== ENCOUNTER 2021-05-19 12:45 | Outpatient (CLI) | payer MEDICARE, OTHER, SELFPAY ==
--- NOTE | ~2021-05-19 | US_ITS ---
US venous doppler [facility] DATE: 05/19/2021 13:37 INDICATION: Left leg bruising. Chest pain. TECHNIQUE: Real-time and color flow imaging and Doppler analysis of the veins of both lower extremiti es COMPARISON: October 03, 2020 right lower extremity venous duplex examination, reported negative for DVT FINDINGS: The left and right greater saphenous veins are patent. There is spontaneous and phasic flow and normal augmentation and color flow signal and normal sonido ish of the deep veins of both legs. IMPRESSION: No evidence of deep venous thrombosis of either leg Reviewed, dictated and finalized at Location A. Reviewed, dictated and finalized at location A.
== END 2021-05-19 12:46 | disposition home or self-care (01) ==
LOC: ANHIMG 12:52
PROVIDERS: PCP Family Medicine; Visit Provider Physician Assistant
DX: M79.605 Pain in left leg (principal); M79.89 Other specified soft tissue disorders; R07.89 Other chest pain
CPT/HCPCS: 93970

== ENCOUNTER 2021-06-27 07:17 | Outpatient (RCR) | payer MEDICARE, OTHER, SELFPAY ==
--- NOTE | 2021-07-25 12:54 | PCWOUND ---
WOCN NOTE patient called to state that she had an emergency with one of her pets and that she had not left her house yet to make her scheduled 1300 appointment for today. Appointment was rescheduled for 08/03/21 at 1300.
--- NOTE | 2021-08-03 11:02 | PCWOUND ---
WOCN NOTE Patient cancelled appointment for today, she went to Dr Hannon and he applied naziaa sean. she will call if further appointments are needed.
== END 2021-08-14 08:11 | disposition home or self-care (01) ==
LOC: ANHWOC 07:17
PROVIDERS: PCP Family Medicine; Visit Provider Plastic Surgery
DX: L97.919 Non-pressure chronic ulcer of unspecified part of right lower leg with unspecified severity (principal)
CPT/HCPCS: 99212; G0463

== ENCOUNTER 2021-07-11 11:41 | Outpatient (CLI) | payer MEDICARE, OTHER, SELFPAY ==
--- NOTE | ~2021-07-11 | XR_ITS ---
EXAMINATION: XR toe 1st LT min 2V DATE: 07/11/2021 12:31 INDICATION: Left great toe ulcer. TECHNIQUE: 4 views of left great toe were obtained. COMPARISON: Left great toe radiographs 05/03/2020, 12/09/19 FINDINGS: There is dorsal subluxation of first distal phalanx with respect to proximal phalanx. No fr acture. There is an old healed erosion of medial neck of first proximal phalanx. There is mild osteoa rthritis of first metatarsophalangeal joint. Again seen is widening of second distal interphalangeal joint with chronic deformity of second distal phalanx. IMPRESSION: 1. Healed erosion of first proximal phalanx, consistent with chronic osteomyelitis. No specific evide nce of acute osteomyelitis. Reviewed, dictated and finalized at location A. SANDER IMPRESSION: 1. Healed erosion of first proximal phalanx, consistent with chronic osteomyeli tis. No specific evidence of acute osteomyelitis.
--- NOTE | ~2021-07-11 | XR_ITS ---
EXAMINATION: XR thoracic spine 3V DATE: 07/11/2021 12:30 INDICATION: Thoracic back pain. TECHNIQUE: 3 views of thoracic spine were obtained. COMPARISON: CT 02/24/2020 FINDINGS: There is 11 degrees levoscoliosis of upper thoracic spine, 3 degrees dextrocurvature of low er thoracic spine, and 5 degrees levocurvature of thoracolumbar spine. There is kyphosis of thoracic spine. There are chronic compression fractures of T1 and T4. There is severely decreased disc height at T11-T12 with endplate remodeling. There is mildly decreased disc height at multiple levels in mid thoracic spine. There are endplate osteophytes at most levels. Epidural electrodes are noted with tip s at T7. There are surgical clips in the abdomen. IMPRESSION: 1. Severe spondylosis at T11-T12 and mild spondylosis at other levels. 2. Scoliosis and kyphosis. Reviewed, dictated and finalized at location A. COMMUNICATIONS FIELD TECHNICIAN
== END 2021-07-11 11:42 | disposition home or self-care (01) ==
LOC: ANHIMG 11:47
PROVIDERS: PCP Family Medicine; Visit Provider Podiatrist Foot & Ankle Surgery
DX: L97.529 Non-pressure chronic ulcer of other part of left foot with unspecified severity (principal); M41.9 Scoliosis, unspecified; M47.894 Other spondylosis, thoracic region
CPT/HCPCS: 72072; 73660

== ENCOUNTER 2021-07-20 12:58 | Emergency (ER) | payer MEDICARE, OTHER, SELFPAY ==
[2021-07-20 13:20] VITALS: BP 144/59; PULSE 100; RESP 20; TEMP 35.9; O2SAT 95
--- NOTE | 2021-07-20 13:35 | ED.WOUNDLAC ---
HPI - Wound/Laceration General Stated Complaint: r hand and finger and L finger pain/bump on face Source: patient and family Mode of arrival: ambulatory History of Present Illness HPI narrative: this is a 71-year-old female that presents with some abrasions to her knees and to her wrist and fingers bilaterally after [place] causing abrasions and avulsion injuries to her hands bilaterally fingers and bilateral knees has good range of motion with some bruising and currently no bleeding has good range of motion in all extremities with no numbness or tingling. The patient has a little bit of swelling and bruising to the right periorbital region with no step-off currently no pain elicited with palpation no blurry vision no headaches no loss of consciousness. Onset (ago): hour(s) Location: other ( [place]) Place: outdoors Patient tetanus UTD: Yes Context: accidental Associated symptoms: none Related Data Home Medications Medication Instructions Recorded Confirmed aspirin 81 mg tablet,delayed 81 mg PO BID 06/22/19 07/11/21 release ferrous sulfate 325 mg (65 mg 325 mg PO TID tablet 06/22/19 07/11/21 iron) tablet Lumigan 1 drp EACH EYE DAILY 11/17/20 07/11/21 ascorbate calcium (vitamin C) 500 mg PO DAILY 11/17/20 07/11/21 mirabegron 50 mg tablet,extended 50 mg PO DAILY 04/24/21 07/11/21 release 24 hr insulin glargine 100 unit/mL 45 unit SUB-Q BID ml 05/16/21 07/11/21 subcutaneous solution Allergies Allergy/AdvReac Type Severity Reaction Status Date / Time oxybutynin Allergy Intermediate PROBLEMS Verified 07/11/21 10:36 BREATHING fexofenadine Allergy Unknown UPPER RESP Verified 07/11/21 10:36 INFECTION lisinopril Allergy Unknown TONGUE Verified 07/11/21 10:36 Swelling paroxetine Allergy Unknown NIGHT Verified 07/11/21 10:36 SWEATS trimethoprim Allergy Unknown Unknown Verified 07/11/21 10:36 cephalexin AdvReac Intermediate Diarrhea; Verified 07/11/21 10:36 Abdominal Pain bupropion AdvReac Unknown Nervousness Verified 07/11/21 10:36 tizanidine AdvReac Unknown blurred Verified 07/11/21 10:36 vision Review of Systems Review of Systems: All systems reviewed & are unremarkable except as noted in HPI and below PMFSH Past Medical History Medical History Anemia Anxiety Chronic kidney disease Chronic venous stasis dermatitis of both lower extremities CKD (chronic kidney disease) stage 3, GFR 30-59 ml/min CVA (cerebral vascular accident) Diabetes type 2, controlled Diverticulosis DM renal manif type II, uncontrolled Dyslipidemia History of renal cell cancer removed surgically bilaterally no chemo or radiation History of stroke with current residual effects expressive aphasia which cleared up with speech therapy Hypertension Kidney malignant neoplasm Long-term current use of insulin for diabetes mellitus Major depressive disorder, single episode, unspecified ANA (obstructive sleep apnea) Intolerant to CPAP machine Osteomyelitis of great toe of left foot Presence of neurostimulator in her back as well as a pain pump. Right femoral fracture ORIF Sleep apnea Venous stasis dermatitis of both lower extremities Vitamin B12 deficiency Surgical History Surgical History History of arthroplasty of right shoulder History of carpal tunnel release History of cataract extraction History of laparotomy History of total right hip arthroplasty Hx of cholecystectomy S/P cubital tunnel release S/P ORIF (open reduction internal fixation) fracture right hip Family History Family History Father Family history of coronary artery disease Family history of heart disease in male family member before age 55 Cerebrovascular accident Sibling Family history of coronary artery diseas
[2021-07-20] MEDS: NEOMYCIN/POLYMYXIN/BACITRACIN OINTMENT PACKET 1 PACKET TOPICAL (13:40)
[2021-07-20 14:45] VITALS: BP 144/59; PULSE 100; RESP 20; TEMP 35.9; O2SAT 100
== END 2021-07-20 14:00 | disposition home or self-care (01) ==
PROVIDERS: Emergency Provider Emergency Medicine; PCP Family Medicine
DX: T14.8XXA Other injury of unspecified body region, initial encounter (principal); W01.0XXA Fall on same level from slipping, tripping and stumbling without subsequent striking against object, initial encounter
CPT/HCPCS: 99281; 99282

== ENCOUNTER 2021-08-02 00:55 | Emergency (ER) | payer MEDICARE, OTHER, SELFPAY ==
[2021-08-02 00:55] VITALS: BP 142/78; PULSE 95; RESP 18; TEMP 36.6; O2SAT 97
--- NOTE | 2021-08-02 01:46 | ED.FALL ---
HPI - Fall General Chief Complaint: Fall Stated Complaint: Fall Time Seen by Provider: 08/02/21 00:57 Source: patient and RN notes reviewed Mode of arrival: ambulatory Limitations: no limitations History of Present Illness HPI Narrative: lateral right ribs and right forearm mild pain, after a fall complaint: fall Onset (ago): day(s) (3) Fall from: standing Place fall occurred: home Loss of consciousness: none Prolonged down time: no Symptoms prior to fall: none Location of injury: chest (lateral right ribs) Location of injury - extremities: Right: forearm Severity scale (1-10): 3 Quality: dull and aching Associated symptoms (after fall): denies Related Data Home Medications Medication Instructions Recorded Confirmed aspirin 81 mg tablet,delayed 81 mg PO BID 06/22/19 08/02/21 release ferrous sulfate 325 mg (65 mg 325 mg PO TID tablet 06/22/19 08/02/21 iron) tablet Lumigan 1 drp EACH EYE DAILY 11/17/20 08/02/21 ascorbate calcium (vitamin C) 500 mg PO DAILY 11/17/20 08/02/21 insulin glargine 100 unit/mL 45 unit SUB-Q BID ml 05/16/21 08/02/21 subcutaneous solution Allergies Allergy/AdvReac Type Severity Reaction Status Date / Time oxybutynin Allergy Intermediate PROBLEMS Verified 08/02/21 01:16 BREATHING fexofenadine Allergy Unknown UPPER RESP Verified 08/02/21 01:16 INFECTION lisinopril Allergy Unknown TONGUE Verified 08/02/21 01:16 Swelling paroxetine Allergy Unknown NIGHT Verified 08/02/21 01:16 SWEATS trimethoprim Allergy Unknown Unknown Verified 08/02/21 01:16 cephalexin AdvReac Intermediate Diarrhea; Verified 08/02/21 01:16 Abdominal Pain bupropion AdvReac Unknown Nervousness Verified 08/02/21 01:16 tizanidine AdvReac Unknown blurred Verified 08/02/21 01:16 vision Review of Systems Review of Systems: All systems reviewed & are unremarkable except as noted in HPI and below PMFSH Past Medical History Medical History Anemia Anxiety Chronic kidney disease Chronic venous stasis dermatitis of both lower extremities CKD (chronic kidney disease) stage 3, GFR 30-59 ml/min Contusion of ribs CVA (cerebral vascular accident) Diabetes type 2, controlled Diverticulosis DM renal manif type II, uncontrolled Dyslipidemia Forearm contusion History of renal cell cancer removed surgically bilaterally no chemo or radiation History of stroke with current residual effects expressive aphasia which cleared up with speech therapy Hypertension Kidney malignant neoplasm Long-term current use of insulin for diabetes mellitus Major depressive disorder, single episode, unspecified ANA (obstructive sleep apnea) Intolerant to CPAP machine Osteomyelitis of great toe of left foot Presence of neurostimulator in her back as well as a pain pump. Right femoral fracture ORIF Sleep apnea Venous stasis dermatitis of both lower extremities Vitamin B12 deficiency Surgical History Surgical History History of arthroplasty of right shoulder History of carpal tunnel release History of cataract extraction History of laparotomy History of total right hip arthroplasty Hx of cholecystectomy S/P cubital tunnel release S/P ORIF (open reduction internal fixation) fracture right hip Family History Family History Father Family history of coronary artery disease Family history of heart disease in male family member before age 55 Cerebrovascular accident Sibling Family history of coronary artery disease Mother Family history of obesity Other Depression Diabetes mellitus Family history of cardiovascular disease Family history of glaucoma Hypertension Social History Social History Social History: The patient is . Her son and daughter live with her. H
[2021-08-02] MEDS: ACETAMINOPHEN 325 MG TABLET 650 MG PO (01:48)
[2021-08-02 02:05] VITALS: BP 128/56; PULSE 95; RESP 18; TEMP 36.5; O2SAT 96
== END 2021-08-02 02:10 | disposition home or self-care (01) ==
PROVIDERS: Emergency Provider Emergency Medicine; PCP Family Medicine
DX: S50.11XA Contusion of right forearm, initial encounter (principal); S20.211A Contusion of right front wall of thorax, initial encounter; W19.XXXA Unspecified fall, initial encounter
CPT/HCPCS: 99282; A9270

== ENCOUNTER 2021-09-12 08:15 | Outpatient (CLI) | payer MEDICARE, SELFPAY ==
[2021-09-12 08:37] LABS: Basophils Absolute Auto 0.05 K/mm3 (0.00-0.10); Basophils Percent Auto 0.7 % (0.0-1.0); Eosinophils Absolute Auto 0.28 K/mm3 (0.02-0.50); Eosinophils Percent Auto 3.9 % (1.0-6.0); Hematocrit 34.7 % (35.0-42.0); Hemoglobin 10.8 g/dL (11.7-13.8); Immature Granulocyte Absolute 0.02 K/mm3 (0.00-0.00); Immature Granulocyte Percent A 0.3 % (0.0-0.0); Lymphocytes Absolute Auto 2.08 K/mm3 (1.10-4.50); Lymphocytes Percent Auto 28.6 % (18.0-42.0); Mean Corpuscular HGB Conc 31.1 g/dL (32.0-36.0); Mean Corpuscular Hemoglobin 25.5 pg (27.0-31.0); Mean Platelet Volume 10.6 fl (9.2-11.8); Monocytes Percent Auto 9.6 % (2.0-11.0); Neutrophils Absolute Auto 4.1 K/mm3 (1.7-7.2); Neutrophils Percent Auto 56.9 % (50.0-70.0); Platelet Count Result 213 K/mm3 (150-420); Red Blood Count 4.23 M/mm3 (4.20-5.40); Red Cell Distribution Width 14.3 % (11.6-14.4); White Blood Count 7.3 K/mm3 (4.8-10.8)
[2021-09-12 08:40] LABS: Add Urine Microscopic? YES; Appearance Urine Clear (Clear); Bilirubin Urine Negative (Negative); Blood Urine Negative (Negative); Color Urine Light Yellow (Yellow); Glucose Urine UA Negative (Negative); Ketones Urine Trace (Negative); Leukocyte Esterase Ur Negative (Negative); Nitrate Urine Negative (Negative); Protein Urine Negative (Negative); Specific Grav Ur 1.015 (1.010-1.020); Urobilinogen Urine 0.2 mg/dL (0.2-1.0); pH Urine 6.5 (5.0-8.0)
[2021-09-12 08:52] LABS: Bacteria Urine Trace /hpf; RBC Urine None seen /hpf (0-2); Squamous Epithelial Cell Urine Few /hpf (Few); WBC Urine None seen /hpf (0-3)
[2021-09-12 09:29] LABS: Hemoglobin A1C 7.4 % (<5.7)
[2021-09-12 09:40] LABS: Alanine Aminotransferase 18 U/L (14-59); Albumin Level 3.6 g/dL (3.4-5.0); Alkaline Phosphatase 70 U/L (46-116); Anion Gap 6 mmol/L (8-16); Aspartate Amino Transferase 10 U/L (15-37); Bilirubin,Total 0.3 mg/dL (0.00-1.00); Blood Urea Nitrogen 15 mg/dL (7-18); Calcium 8.5 mg/dL (8.5-10.1); Carbon Dioxide 32 mmol/L (21-32); Chloride 102 mmol/L (98-108); Estimated Glomerular Filt Rate > 60; Glucose 56 mg/dL (70-99); Osmolality Calculated 288 mOsm/kg (285-295); Potassium 4.2 mmol/L (3.5-5.1); Sodium 140 mmol/L (136-145); Thyroid Stimulating Hormone 6.76 uIU/mL (0.36-3.74); Total Protein 7.1 g/dL (6.4-8.2)
[2021-09-12 09:47] LABS: Cholesterol 118 mg/dL (0-200); Triglycerides 161 mg/dL (0-150)
[2021-09-12 09:48] LABS: Folic Acid > 20.0 ng/mL (8.6->20); HDL Direct 40 mg/dL (40-60); LDL Cholesterol Calculated 46 mg/dL (<130); Vitamin B12 1293 pg/mL (193-986)
== END 2021-09-12 08:16 | disposition home or self-care (01) ==
LOC: CHSLAB 08:19
PROVIDERS: Internal Medicine Cardiovascular Disease; PCP Family Medicine; Visit Provider Physician Assistant
DX: E78.5 Hyperlipidemia, unspecified (principal); D50.9 Iron deficiency anemia, unspecified; E11.9 Type 2 diabetes mellitus without complications; I87.2 Venous insufficiency (chronic) (peripheral); Z79.4 Long term (current) use of insulin; F32.9 Major depressive disorder, single episode, unspecified; N18.30 Chronic kidney disease, stage 3 unspecified; F41.9 Anxiety disorder, unspecified; E53.8 Deficiency of other specified B group vitamins; D64.9 Anemia, unspecified; Z00.00 Encounter for general adult medical examination without abnormal findings
CPT/HCPCS: 36415; 80053; 80061; 81001; 82607; 82746; 83036; 84443; 85025

== ENCOUNTER 2021-09-19 13:33 | Outpatient (CLI) | payer MEDICARE, OTHER, SELFPAY ==
--- NOTE | ~2021-09-19 | CT_ITS ---
EXAMINATION: CT brain wo con EXAM DATE: 09/19/2021 14:04 INDICATION: S09.90XA - Unspecified injury of head, initial encounter. Left temporal bruising. TECHNIQUE: Spiral CT of the head was performed without contrast. Axial, coronal and sagittal images were reviewed. The dose-length product (DLP) for this examination was 605.33 mGy-cm. The exposure w as tailored according to patient size, and iterative reconstruction (ASIR) was used as additional dos e reduction technique. Comparison is made to prior examination from 03/04/2020. FINDINGS: Moderate-sized region of left temporoparietal encephalomalacia, an old infarction unchanged . There is mild cerebral atrophy. Bilateral cataract surgery. No obstructive hydrocephalus, acute int racranial hemorrhage, brain mass or evidence of acute infarction. There is no significant interval ch melvin. IMPRESSION: Old moderate-sized left temporoparietal lobe infarction unchanged. No acute findings. Reviewed, dictated and finalized at location B. N[employer]IAN [employer]S
== END 2021-09-19 13:34 | disposition home or self-care (01) ==
LOC: ANHIMG 13:42
PROVIDERS: PCP Family Medicine; Visit Provider Physician Assistant
DX: S09.90XA Unspecified injury of head, initial encounter (principal); R26.89 Other abnormalities of gait and mobility; X58.XXXA Exposure to other specified factors, initial encounter; R93.0 Abnormal findings on diagnostic imaging of skull and head, not elsewhere classified
CPT/HCPCS: 70450

== ENCOUNTER 2021-10-05 14:12 | Emergency (ER) | payer MEDICARE, OTHER, SELFPAY ==
--- NOTE | ~2021-10-05 | XR_ITS ---
EXAMINATION: XR knee RT 3V DATE: 10/05/2021 15:13 INDICATION: Right knee pain TECHNIQUE: Three views of the right knee were obtained. COMPARISON: 09/01/2019 FINDINGS: There is subtle cortical irregularity involving the lateral third of the patella on the sun rise view. Joint spaces are normal with no erosions. No joint effusion/synovitis. Soft tissues are unremarkable. IMPRESSION: 1. Possible nondisplaced fracture of the lateral patella. Reviewed, dictated and finalized at location F. TION COORDINATOR
--- NOTE | ~2021-10-05 | CT_ITS ---
EXAMINATION: CT facial & cervical spine wo DATE: 10/05/2021 15:05 INDICATION: Right-sided head injury. TECHNIQUE: Computed tomography (CT) of the maxillofacial region and cervical spine was performed with out intravenous contrast. Automated exposure control and iterative reconstruction technique were empl oyed. The dose-length product was 427.14 mGy-cm. COMPARISON: CT thoracic spine 02/24/2020 FINDINGS: MAXILLOFACIAL CT: There is leftward deviation of the nasal septum. No fracture. There is mild mucosal thickening in the paranasal sinuses. There is a laceration of right frontal scalp with a 2 mm radiopaque foreign body. There are likely changes of ocular lens replacement surgeries. CERVICAL SPINE CT: There is mild emphysema. There is 6 degrees dextrocurvature of cervical spine. There is 3 mm retrolis thesis of C3 on C4 and 2 mm retrolisthesis of C6 on C7. There is a chronic compression fracture of T1 with 1/5 loss of height. There is severely decreased disc height at C3-C4, C6-C7, and C7-T1 and mild ly decreased disc height at C5-C6. The following disc levels are specifically discussed: C2-C3: There is no uncovertebral joint osteoarthritis. There is moderate bilateral facet joint osteoa rthritis. There is no neural foraminal stenosis. There is no central canal stenosis. C3-C4: There is severe bilateral uncovertebral joint osteoarthritis. There is moderate right and mayda re left facet joint osteoarthritis. There is moderate right and severe left neural foraminal stenosis . There is moderate central canal stenosis. C4-C5: There is mild bilateral uncovertebral joint osteoarthritis. There is mild bilateral facet join t osteoarthritis. There is mild right neural foraminal stenosis. There is no central canal stenosis. C5-C6: There is moderate right and mild left uncovertebral joint osteoarthritis. There is moderate bi lateral facet joint osteoarthritis. There is mild bilateral neural foraminal stenosis. There is mild central canal stenosis. C6-C7: There is severe bilateral uncovertebral joint osteoarthritis. There is moderate bilateral face t joint osteoarthritis. There is mild bilateral neural foraminal stenosis. There is mild central steve l stenosis. C7-T1: There is severe bilateral uncovertebral joint osteoarthritis. There is moderate right and mayda re left facet joint osteoarthritis. There is mild bilateral neural foraminal stenosis. There is mild central canal stenosis. IMPRESSION: 1. No fracture. 2. Severe cervical spondylosis. 3. Right frontal scalp laceration with 2 mm radiopaque foreign body. Reviewed, dictated and finalized at location A. ITION ASSEMBLER
--- NOTE | ~2021-10-05 | CT_ITS ---
EXAMINATION: CT brain wo con DATE: 10/05/2021 15:05 INDICATION: Fall with head injury and right eyebrow laceration TECHNIQUE: Computed tomography (CT) of the head was performed without intravenous contrast. Sagittal and coronal reconstructions were performed. The mA was adjusted according to patient size. Iterative reconstruction technique was employed. The dose-length product was 605.33 mGy-cm. COMPARISON: head CT dated 09/19/2021 FINDINGS: Small focus of gas along the right supraorbital rim consistent with given history of laceration. Ther e is a 2 mm calcification in the immediately adjacent soft tissues but which was present at this loca tion on the CT from 2 weeks. No fracture. Unchanged moderate sized region of encephalomalacia in the left temporal parietal region consistent with old infarct. No acute intracranial hemorrhage, acute in farction or abnormal extra axial fluid collection. There is mild scattered white matter hypoattenuati on consistent with chronic small vessel ischemic disease. Ventricles are normal and symmetric. No ma ss/mass effect. Small right mastoid effusion. Paranasal sinuses and left mastoid air cells and bilate ral middle ear cavities are clear. IMPRESSION: 1. No fracture or acute intracranial process. 2. Stable appearance of a moderate-sized chronic left temporal parietal infarct. Reviewed, dictated and finalized at location A. T ATTENDANT OR ASSISTANT OPERATOR IMPRESSION: 1. No fracture or acute intracranial process. 2. Stable appearance of a moderate-sized chronic left temporal parietal infarct .
[2021-10-05 14:25] VITALS: BP 150/74; PULSE 85; RESP 16; TEMP 37.2; O2SAT 98
--- NOTE | 2021-10-05 14:58 | ED.FALL ---
HPI - Fall General Chief Complaint: Fall Stated Complaint: laceration on head Time Seen by Provider: 10/05/21 14:16 Source: patient and RN notes reviewed Mode of arrival: ambulatory Limitations: no limitations History of Present Illness complaint: fall Onset (ago): hour(s) (1) Fall from: standing (pt tripped and fell. denied chest pain, SOB or any other injury.) Fall witnessed: no Place fall occurred: home Loss of consciousness: none Prolonged down time: no Symptoms prior to fall: none Location of injury: head Severity: mild Severity scale (1-10): 5 Quality: dull and aching Related Data Home Medications Medication Instructions Recorded Confirmed ferrous sulfate 325 mg (65 mg 325 mg PO TID tablet 06/22/19 10/05/21 iron) tablet Lumigan 1 drp EACH EYE DAILY 11/17/20 10/05/21 ascorbate calcium (vitamin C) 500 mg PO DAILY 11/17/20 09/07/21 insulin glargine 100 unit/mL 45 unit SUB-Q BID ml 05/16/21 10/05/21 subcutaneous solution Allergies Allergy/AdvReac Type Severity Reaction Status Date / Time oxybutynin Allergy Intermediate PROBLEMS Verified 10/05/21 14:47 BREATHING fexofenadine Allergy Unknown UPPER RESP Verified 10/05/21 14:47 INFECTION lisinopril Allergy Unknown TONGUE Verified 10/05/21 14:47 Swelling paroxetine Allergy Unknown NIGHT Verified 10/05/21 14:47 SWEATS trimethoprim Allergy Unknown Unknown Verified 10/05/21 14:47 cephalexin AdvReac Intermediate Diarrhea; Verified 10/05/21 14:47 Abdominal Pain bupropion AdvReac Unknown Nervousness Verified 10/05/21 14:47 tizanidine AdvReac Unknown blurred Verified 10/05/21 14:47 vision Review of Systems Review of Systems: All systems reviewed & are unremarkable except as noted in HPI and below PMFSH Past Medical History Medical History Anemia Anxiety Chronic kidney disease Chronic venous stasis dermatitis of both lower extremities CKD (chronic kidney disease) stage 3, GFR 30-59 ml/min Contusion of ribs CVA (cerebral vascular accident) Diabetes type 2, controlled Diverticulosis DM renal manif type II, uncontrolled Dyslipidemia Forearm contusion History of renal cell cancer removed surgically bilaterally no chemo or radiation History of stroke with current residual effects expressive aphasia which cleared up with speech therapy Hypertension Kidney malignant neoplasm Long-term current use of insulin for diabetes mellitus Major depressive disorder, single episode, unspecified ANA (obstructive sleep apnea) Intolerant to CPAP machine Osteomyelitis of great toe of left foot Presence of neurostimulator in her back as well as a pain pump. Right femoral fracture ORIF Sleep apnea Venous stasis dermatitis of both lower extremities Vitamin B12 deficiency Surgical History Surgical History History of arthroplasty of right shoulder History of carpal tunnel release History of cataract extraction History of laparotomy History of total right hip arthroplasty Hx of cholecystectomy S/P cubital tunnel release S/P ORIF (open reduction internal fixation) fracture right hip Family History Family History Father Family history of coronary artery disease Family history of heart disease in male family member before age 55 Cerebrovascular accident Sibling Family history of coronary artery disease Mother Family history of obesity Other Depression Diabetes mellitus Family history of cardiovascular disease Family history of glaucoma Hypertension Social History Social History Social History: The patient is . Her son and daughter live with her. Her was the durable power securities attorney but he has since passed. She nominated her son and daughter to be her durable power securities attorney for heal
[2021-10-05 15:05] VITALS: O2SAT 99
[2021-10-05] MEDS: IBUPROFEN 400 MG TABLET 800 MG PO (15:15)
[2021-10-05] MEDS: LIDOCAINE HCL 2% PF INJ 5 ML VIAL 1 ML INFILTRATE (15:16)
--- NOTE | 2021-10-05 15:37 | PC.NURSE ---
Addendum entered by Rena Kim RN 10/05/21 15:39: pt refused knee immobilizer Original Note: neuro-circ checks to distal right leg wnl after double sonya wrap applied to right knee. right leg ^ and ice applied.
== END 2021-10-05 15:52 | disposition home or self-care (01) ==
PROVIDERS: Emergency Provider Emergency Medicine; PCP Family Medicine
DX: S09.90XA Unspecified injury of head, initial encounter (principal); S01.81XA Laceration without foreign body of other part of head, initial encounter; S82.001A Unspecified fracture of right patella, initial encounter for closed fracture; W19.XXXA Unspecified fall, initial encounter; I12.9 Hypertensive chronic kidney disease with stage 1 through stage 4 chronic kidney disease, or unspecified chronic kidney disease; N18.30 Chronic kidney disease, stage 3 unspecified; E11.9 Type 2 diabetes mellitus without complications; E78.5 Hyperlipidemia, unspecified; Z87.891 Personal history of nicotine dependence
CPT/HCPCS: 70450; 70486; 72125; 73562; 99284; A9270

== ENCOUNTER 2021-10-24 08:14 | Outpatient (CLI) | payer MEDICARE, OTHER, SELFPAY ==
--- NOTE | ~2021-10-24 | XR_ITS ---
EXAMINATION: XR knee RT 3V DATE: 10/24/2021 08:38 INDICATION: Right knee pain. TECHNIQUE: 3 views of right knee were obtained. COMPARISON: Right knee radiographs 10/05/2021 FINDINGS: Bone alignment is normal. There is a nondisplaced sagittal fracture of lateral patella. The re is mild tricompartmental osteoarthritis characterized by tiny osteophytes. No joint space narrowin g. No knee joint effusion. IMPRESSION: 1. Stable nondisplaced sagittal fracture of lateral patella. 2. Mild right knee osteoarthritis. Reviewed, dictated and finalized at location A.
== END 2021-10-24 08:15 | disposition home or self-care (01) ==
LOC: CHSIMG 08:14
PROVIDERS: PCP Family Medicine; Visit Provider Orthopaedic Surgery
DX: M25.561 Pain in right knee (principal)
CPT/HCPCS: 73562

== ENCOUNTER 2021-10-27 15:08 | Outpatient (CLI) | payer MEDICARE, OTHER, SELFPAY ==
--- NOTE | ~2021-10-27 | US_ITS ---
EXAMINATION: US carotid duplex BI DATE: 10/27/2021 16:17 INDICATION: Occlusion and stenosis of unspecified carotid artery. TECHNIQUE: Grayscale, color Doppler, and pulsed Doppler images of the cervical carotid arteries were obtained. The degree of vessel stenosis is placed in one of the following categories: normal, <50%, 5 0-69%, >=70% but less than near-occlusion, near-occlusion, or total occlusion. Note that percent sten osis relative to normal distal artery lumen diameter is indirectly measured from velocity measurement s as described by Jeff, et al. Radiology 2003; 229:[id number]. COMPARISON: Ultrasound 11/02/2020 FINDINGS: RIGHT: The right common carotid artery (CCA) peak systolic velocity (PSV) is 93 cm/s. The right internal car otid artery (ICA) PSV is 16 cm/s. The right ICA end-diastolic velocity (EDV) is 44 cm/s. The right IC A/CCA PSV ratio is 1.8. Grayscale and color Doppler images yield an estimate of <50% diameter reducti on from plaque in the ICA. There is antegrade flow in the right vertebral artery. LEFT: The left CCA PSV is 83 cm/s. The left ICA is totally occluded. There is antegrade flow in the left ve rtebral artery. IMPRESSION: 1. <50% stenosis in the right internal carotid artery. 2. Chronic total occlusion of left internal carotid artery. Reviewed, dictated and finalized at location A.
== END 2021-10-27 15:09 | disposition home or self-care (01) ==
PROVIDERS: PCP Family Medicine; Visit Provider Internal Medicine Cardiovascular Disease
DX: I65.23 Occlusion and stenosis of bilateral carotid arteries (principal)
CPT/HCPCS: 93880

== ENCOUNTER 2021-11-06 15:22 | Outpatient (CLI) | payer MEDICARE, OTHER, SELFPAY ==
[2021-11-06 16:53] LABS: Anion Gap 7 mmol/L (8-16); Blood Urea Nitrogen 28 mg/dL (7-18); Calcium 8.7 mg/dL (8.5-10.1); Carbon Dioxide 30 mmol/L (21-32); Chloride 101 mmol/L (98-108); Estimated Glomerular Filt Rate 58; Ferritin 87 ng/mL (8-252); Glucose 60 mg/dL (70-99); Iron 70 ug/dL (50-170); Osmolality Calculated 289 mOsm/kg (285-295); Percent Iron Saturation 26 % (12-57); Potassium 4.9 mmol/L (3.5-5.1); Sodium 138 mmol/L (136-145); Vitamin B12 974 pg/mL (193-986)
[2021-11-09 15:54] LABS: Albumin 3.7 g/dL (3.8-4.8); Alpha 1 Globulin 0.3 g/dL (0.2-0.3); Beta 1 Globulin 0.4 g/dL (0.4-0.6); Gamma Globulin 1.2 g/dL (0.8-1.7); Protein, Total 7.1 g/dL (6.1-8.1)
== END 2021-11-06 15:23 | disposition home or self-care (01) ==
LOC: CHSLAB 15:25
PROVIDERS: PCP Family Medicine; Visit Provider Internal Medicine Hematology & Oncology
DX: D50.9 Iron deficiency anemia, unspecified (principal)
CPT/HCPCS: 36415; 80048; 82607; 82728; 83540; 83550; 84155; 84165

== ENCOUNTER 2021-11-30 14:17 | Inpatient (IN) | payer MEDICARE, OTHER, SELFPAY ==
--- NOTE | ~2021-11-30 | US_ITS ---
EXAMINATION: US arterial duplex [facility] DATE: 12/01/2021 17:26 INDICATION: Nonhealing ulcerations. TECHNIQUE: Segmental pressures and plethysmographic and Doppler waveforms of the brachial and lower e xtremity arteries were obtained. COMPARISON: None. FINDINGS: Right and left brachial artery pressures of 133 mm Hg and 133 mm Hg, respectively, are concordant (no rmal difference <= 30 mmHg). The right and left high-thigh pressure indices are 1.33 and 1.26, respec tively (normal > 1.2). The right ankle-brachial index (GISEL) is 1.05 (normal >= 0.9-1). The right great toe-brachial index (T BI) is 0.66 (normal >= 0.6-0.8). The right lower extremity segmental pressure gradients are normal (n ormal gradients <= 20-30 mmHg between adjacent levels on the same leg or the same levels on the two l egs). Arterial waveforms are biphasic with brisk systolic upstrokes throughout the arteries of the ri ght lower limb. The left GISEL is 0.92. The left TBI is 0.50. The left lower extremity segmental pressure gradients are increased between the high left thigh and the left fseit-dcr-zinn popliteal artery and at both the l eft above and rxebu-npe-sltj popliteal arteries relative to the contralateral right above and below-t he-knee popliteal arteries. Arterial waveforms are biphasic with brisk systolic upstrokes throughout. IMPRESSION: 1. Mild arterial occlusive disease to left lower limb with borderline left GISEL and mildly decreased T BI. 2. No arterial occlusive disease to the right lower limb. Reviewed, dictated and finalized at location A. IMPRESSION: 1. Mild arterial occlusive disease to left lower limb with borderline left GISEL and mildly decreased TBI. 2. No arterial occlusive disease to the right lower limb.
--- NOTE | ~2021-11-30 | US_ITS ---
EXAMINATION: US venous doppler [facility] DATE: 11/30/2021 18:04 INDICATION: Bilateral lower limb swelling TECHNIQUE: Forte scale images without and with compression and Doppler images of the bilateral lower e xtremity veins were obtained. COMPARISON: 05/19/2021 FINDINGS: The right common femoral vein, profunda femoral vein, femoral vein, popliteal vein, peroneal trunk, p osterior tibial veins, and greater saphenous vein are patent. The left common femoral vein, profunda femoral vein, femoral vein, popliteal vein, peroneal trunk, po sterior tibial veins, and greater saphenous vein are patent. IMPRESSION: 1. Patent bilateral lower extremity veins. No evidence of deep venous thrombosis. Reviewed, dictated and finalized at location F. IMPRESSION: 1. Patent bilateral lower extremity veins. No evidence of deep venous thrombosi s.
--- NOTE | ~2021-11-30 | XR_ITS ---
EXAMINATION: XR toe 1st RT min 2V DATE: 11/30/2021 15:58 INDICATION: Wound at tip of the great toe. TECHNIQUE: 3 views of right great toe were obtained. COMPARISON: Right second toe radiographs 11/09/2020 FINDINGS: Bone alignment is normal. No fracture. There are erosions of tuft of first distal phalanx, consistent with osteoarthritis. There is absence of distal aspect of second distal phalanx. There is mild osteoarthritis of first metatarsophalangeal joint, first interphalangeal joint, and second proxi mal and distal interphalangeal joints. IMPRESSION: 1. Acute osteomyelitis involving tuft of first distal phalanx. 2. Absence of distal aspect of second distal phalanx, which may be secondary to prior surgery and/or chronic osteomyelitis. Reviewed, dictated and finalized at location B.
--- NOTE | ~2021-11-30 | XR_ITS ---
EXAMINATION: XR foot LT 2V DATE: 12/01/2021 16:01 INDICATION: Chronic ulcer of left great toe. TECHNIQUE: 2 views of foot were obtained. COMPARISON: Left great toe radiographs 07/11/2021 FINDINGS: There is an old healed fracture of neck of fifth metatarsal. No acute fracture. Second dist al phalanx is small, which is chronic. There is chronic widening of second distal interphalangeal jose maria nt. There is mild osteoarthritis of first metatarsophalangeal joint. There is an enthesophyte at plan tar aspect of calcaneal tuberosity. IMPRESSION: 1. No evidence of acute osteomyelitis. Reviewed, dictated and finalized at location B.
[2021-11-30 14:39] VITALS: BP 133/44; PULSE 80; RESP 18; TEMP 36.2; O2SAT 98
[2021-11-30 14:54] LABS: Basophils Absolute Auto 0.1 K/mm3 (0.0-0.1); Basophils Percent Auto 0.6 % (0.2-1.2); Eosinophils Absolute Auto 0.4 K/mm3 (0-0.3); Eosinophils Percent Auto 4.1 % (0-4.4); Hematocrit 30.9 % (37.0-47.0); Hemoglobin 9.9 g/dL (12.0-15.0); Immature Granulocyte Absolute 0.03 K/mm3 (0.00-0.031); Immature Granulocyte Percent A 0.3 % (0-0.5); Lymphocytes Absolute Auto 1.24 K/mm3 (0.9-3.2); Lymphocytes Percent Auto 13.8 % (18.3-44.2); Mean Corpuscular Hemoglobin 25.9 pg (26-34); Mean Corpuscular Volume 80.9 fl (80-100); Mean Platelet Volume 10.5 fl (7.4-10.4); Monocytes Absolute Auto 0.7 K/mm3 (0.1-0.6); Monocytes Percent Auto 7.3 % (2.6-8.5); Neutrophils Absolute Auto 6.6 K/mm3 (1.3-6.7); Neutrophils Percent Auto 73.9 % (45.5-73.1); Platelet Count Result 234 k/mm3 (150-375); Red Blood Count 3.82 M/mm3 (4.2-5.4); Red Cell Distribution Width 13.6 % (11.5-14.5)
[2021-11-30 15:03] LABS: Alanine Aminotransferase 12 U/L (4-35); Alkaline Phosphatase 79 U/L (38-126); Anion Gap 7 mmol/L (8-16); Aspartate Amino Transferase 22 U/L (14-36); Bilirubin,Total 0.3 mg/dL (0.2-1.3); Blood Urea Nitrogen 25 mg/dL (7-17); Calcium 8.6 mg/dL (8.4-10.2); Carbon Dioxide 28 mmol/L (22-30); Chloride 101 mmol/L (98-107); Estimated CRCL calculation 53 ml/min; Estimated Glomerular Filt Rate > 60; Glucose 139 mg/dL (65-110); Potassium 4.4 mmol/L (3.4-5.0); Sodium 136 mmol/L (137-145)
--- NOTE | 2021-11-30 17:25 | PM.IMHP ---
H&P: HPI History of Present Illness Date/Time: 11/30/21 17:25 Chief Complaint: Right toe infection. Narrative: This is a 71-year-old female with insulin-dependent diabetes, hypertension, dyslipidemia, sleep apnea, anemia, and multiple other comorbidities who presented to the emergency department today from Dr. Hannon' office for evaluation of a right toe infection. She has followed Dr. Hannon intermittently for diabetic foot ulcers over the years and she went and saw him earlier this week for evaluation of a callused and blistered area on the tip of her right toe. The area was cleaned and she was started on doxycycline however despite being compliant with the antibiotic, she has developed increasing swelling and redness about the site. Extremity today showed acute osteomyelitis involving the tuft of the first distal phalanx and she is being admitted in the setting for further care. She believes her glucose is fairly well controlled however it is unusual for her to have numbers around 200. She denies fever, chills, sweats, nausea, and vomiting. No history of MRSA or Pseudomonas skin/soft tissue infection to her knowledge. Review of Systems Review of Systems: 12 systems were reviewed. She has had several falls recently, reporting that they were mechanical falls however her daughter reports that she seems to not pay attention very much and that she frequently dozes off when she is not supposed to for example she reportedly has fallen out of the computer chair after falling asleep. It is noted that she does have sleep apnea however is intolerant and noncompliant with her CPAP for many years. She has chronic low back pain and has a neurostimulator and pain pump in place. He takes Colace at home but goes on to say that she frequently has accidents when outside of the home for which she wears depends due to leaking of stool. Except as documented, all other systems were reviewed and are negative. [facility] Past Medical History Medical History (Updated 11/30/21 @ 18:00 by Adrienne Robins PA-C) Anemia Anxiety Cerebrovascular accident Presenting with expressive aphasia which has essentially resolved. Chronic kidney disease, stage 3 Chronic low back pain Chronic venous stasis dermatitis of both lower extremities Diverticulosis Dyslipidemia Hypertension Insulin dependent type 2 diabetes mellitus Kidney malignant neoplasm Major depressive disorder, single episode, unspecified Nonalcoholic fatty liver disease Obstructive sleep apnea Intolerant to CPAP. Osteomyelitis of great toe of left foot Renal cell carcinoma Status post partial bilateral nephrectomy. Right femoral fracture ORIF Vitamin B12 deficiency Surgical History Surgical History (Updated 11/30/21 @ 17:29 by Adrienne Robins PA-C) History of arthroplasty of right shoulder History of bilateral salpingo-oophorectomy (12/2008) History of carpal tunnel release History of cataract extraction History of cholecystectomy History of elbow surgery Cubital tunnel release. History of laparotomy (12/2008) Diagnostic laparotomy with extensive adhesiolysis and bilateral salpingo-oophorectomy History of open reduction and internal fixation (ORIF) procedure Right hip fracture. History of partial nephrectomy (2007) Bilateral partial nephrectomy for renal cell carcinoma done at [place]. History of tonsillectomy History of total abdominal hysterectomy History of total right hip arthroplasty Status post insertion of spinal cord stimulator With pain pump for chronic low back pain. Family History Family History Father Family history of coronary artery disease Family history of heart disease in male family member before age 55 Cerebrovascular accident Sibling Family history of coronary artery disease Mother Family history of obesity Other Depression Diabetes mellitus Family history of cardiovascular disease Family history of izzy
[2021-11-30 17:35] VITALS: BP 141/68; PULSE 82; RESP 17; O2SAT 97
--- NOTE | 2021-11-30 17:51 | ED.GENADULT ---
HPI - General Adult General Chief complaint: Wound/Laceration Stated complaint: right foot/toe pain Time Seen by Provider: 11/30/21 15:37 History of Present Illness HPI narrative: Patient is a 71-year-old female who presents ER regarding her right great toe. Patient saw her clinical project coordinator today Dr. Hannon. He is concerned about infection to the toe. Patient is unsure how long she has had deformity to her great toe but does note that she definitely noticed the blister sometime this week. This caused her to refill a prescription of doxycycline to treat infection. Her right leg has become swollen and red. She has weeping blisters to both legs. This caused her to want to go in and see Dr. Hannon today. He has not seen her since August. Patient used to see wound care for some chronic ulcerations on her legs but has not been there recently either. Denies fevers or chills or sweats. No chest pain or chest pressure or difficulty breathing. No orthopnea. Patient is a poor historian. Related Data Home Medications Medication Instructions Recorded Confirmed ferrous sulfate 325 mg (65 mg 325 mg PO TID tablet 06/22/19 10/30/21 iron) tablet Lumigan 1 drp EACH EYE DAILY 11/17/20 10/30/21 ascorbate calcium (vitamin C) 500 mg PO DAILY 11/17/20 10/30/21 insulin glargine [Lantus Solostar 45 unit SUBCUT BID 11/14/21 11/14/21 U-100 Insulin] Allergies Allergy/AdvReac Type Severity Reaction Status Date / Time oxybutynin Allergy Intermediate PROBLEMS Verified 11/30/21 15:33 BREATHING fexofenadine Allergy Unknown UPPER RESP Verified 11/30/21 15:33 INFECTION lisinopril Allergy Unknown TONGUE Verified 11/30/21 15:33 Swelling paroxetine Allergy Unknown NIGHT Verified 11/30/21 15:33 SWEATS trimethoprim Allergy Unknown Unknown Verified 11/30/21 15:33 cephalexin AdvReac Intermediate Diarrhea; Verified 11/30/21 15:33 Abdominal Pain bupropion AdvReac Unknown Nervousness Verified 11/30/21 15:33 tizanidine AdvReac Unknown blurred Verified 11/30/21 15:33 vision Review of Systems Review of Systems: All systems reviewed & are unremarkable except as noted in HPI and below Constitutional: Constitutional: Denies chills, Denies fever(s) and Denies weakness Cardiovascular: Cardiovascular: Denies chest pain, Denies rapid heart rate and Denies radiating jaw, neck or arm pain Respiratory: Respiratory: Denies cough and Denies dyspnea Gastrointestinal: Gastrointestinal: Denies abdominal pain, Denies nausea and Denies vomiting Musculoskeletal: Comments: Lower extremity edema Integumentary/Breasts: Skin/Breast: Reports erythema and Reports skin ulcer PMFSH Past Medical History Medical History (Updated 11/30/21 @ 19:38 by Hector Sharpe MD) Anemia Anxiety Cerebrovascular accident Presenting with expressive aphasia which has essentially resolved. Chronic kidney disease, stage 3 Chronic low back pain Chronic venous stasis dermatitis of both lower extremities Diverticulosis Dyslipidemia Hypertension Insulin dependent type 2 diabetes mellitus Kidney malignant neoplasm Major depressive disorder, single episode, unspecified Nonalcoholic fatty liver disease Obstructive sleep apnea Intolerant to CPAP. Osteomyelitis of great toe of left foot Renal cell carcinoma Status post partial bilateral nephrectomy. Right femoral fracture ORIF Vitamin B12 deficiency Surgical History Surgical History (Updated 11/30/21 @ 17:29 by Adrienne Robins PA-C) History of arthroplasty of right shoulder History of bilateral salpingo-oophorectomy (12/2008) History of carpal tunnel release History of cataract extraction History of cholecystectomy History of elbow surgery Cubital tunnel release. History of laparotomy (12/2008) Diagnostic laparotomy with extensive adhesiolysis and bilateral salpingo-oophorectomy History of open reduction and internal fixation (ORIF) procedure Right hip fracture. History of partial nephr
[2021-11-30 18:11] VITALS: BP 122/67; PULSE 82; RESP 16; O2SAT 97
[2021-11-30 19:50] VITALS: BP 133/31; PULSE 75; RESP 20; TEMP 36.6; O2SAT 94; BMI 28.3
[2021-11-30 20:07] VITALS: BP 133/31; PULSE 75; RESP 20; TEMP 36.6; O2SAT 94; BMI 28.3
--- NOTE | 2021-11-30 20:09 | ADMGEN ---
This patient, Ce Young, was admitted to 3 Med Surg Room 311-01. Patient/family oriented to hospital policies and general routines including ID bracelet, bed and alarms, visiting hours, pain management, procedures, bathroom and other care routines, personal items, smoking policy, room service/diet, and visiting hours. Information on how to activate the Rapid Response Team has been discussed. Patient/Family are encouraged to report perceived risks to care and to ask questions if they do not understand what they are told or what they should do.
[2021-11-30 20:34] LABS: Hemoglobin A1C 7.9 % (<5.7)
[2021-11-30 21:45] LABS: Glucose Point of Care 94 mg/dl (65-105)
[2021-11-30 21:58] VITALS: BP 115/34; PULSE 67; RESP 18; TEMP 36.7; O2SAT 97
[2021-12-01 05:59] VITALS: BP 136/49; PULSE 77; RESP 17; TEMP 36.9; O2SAT 95
[2021-12-01 06:56] LABS: Basophils Percent Auto 0.5 % (0.2-1.2); Eosinophils Absolute Auto 0.4 K/mm3 (0-0.3); Eosinophils Percent Auto 5.2 % (0-4.4); Hematocrit 31.4 % (37.0-47.0); Immature Granulocyte Absolute 0.03 K/mm3 (0.00-0.031); Immature Granulocyte Percent A 0.4 % (0-0.5); Lymphocytes Absolute Auto 1.56 K/mm3 (0.9-3.2); Lymphocytes Percent Auto 21.4 % (18.3-44.2); Mean Corpuscular HGB Conc 31.8 g/dl (32-36); Mean Corpuscular Hemoglobin 25.9 pg (26-34); Mean Corpuscular Volume 81.3 fl (80-100); Mean Platelet Volume 10.5 fl (7.4-10.4); Monocytes Absolute Auto 0.8 K/mm3 (0.1-0.6); Monocytes Percent Auto 10.6 % (2.6-8.5); Neutrophils Absolute Auto 4.5 K/mm3 (1.3-6.7); Neutrophils Percent Auto 61.9 % (45.5-73.1); Platelet Count Result 238 k/mm3 (150-375); Red Blood Count 3.86 M/mm3 (4.2-5.4); Red Cell Distribution Width 13.7 % (11.5-14.5); White Blood Count 7.3 K/mm3 (4.5-10.0)
[2021-12-01 07:04] LABS: Anion Gap 6 mmol/L (8-16); Blood Urea Nitrogen 20 mg/dL (7-17); CRP 6.3 mg/dL (<1.0); Calcium 8.7 mg/dL (8.4-10.2); Carbon Dioxide 32 mmol/L (22-30); Chloride 100 mmol/L (98-107); Estimated CRCL calculation 60 ml/min; Estimated Glomerular Filt Rate > 60; Glucose 97 mg/dL (65-110); Magnesium 1.5 mg/dL (1.6-2.3); Potassium 3.9 mmol/L (3.4-5.0); Sodium 138 mmol/L (137-145)
[2021-12-01 07:44] LABS: Glucose Point of Care 90 mg/dl (65-105)
[2021-12-01] MEDS: VALSARTAN 40 MG TABLET PO ×2 (08:25→18:07)
[2021-12-01] MEDS: DOCUSATE SODIUM 100 MG CAPSULE PO ×2 (08:25→18:07)
[2021-12-01] MEDS: ENOXAPARIN 40 MG/0.4 ML SYRINGE SUB-Q (08:25)
[2021-12-01] MEDS: VENLAFAXINE HCL XR 75 MG CAP.ER.24H 150 MG PO (08:25)
[2021-12-01] MEDS: CYCLOBENZAPRINE HCL 5 MG TABLET PO ×2 (08:25→18:07)
[2021-12-01] MEDS: metFORMIN HCL 500 MG TABLET 1000 MG PO ×2 (08:26→18:06)
[2021-12-01] MEDS: LORATADINE 10 MG TABLET PO (08:26)
[2021-12-01] MEDS: OMEGA 3 POLYUNSAT FATTY ACIDS 1 GM CAP PO ×2 (08:26→18:07)
[2021-12-01] MEDS: ASCORBIC ACID 500 MG TABLET PO (08:26)
[2021-12-01] MEDS: MIRABEGRON 50 MG ER TABLET PO (08:26)
[2021-12-01] MEDS: PANTOPRAZOLE 40 MG TABLET PO (08:26)
[2021-12-01] MEDS: METOPROLOL SUCCINATE EXT REL 25 MG TABCR PO (08:26)
[2021-12-01] MEDS: FERROUS SULFATE 324 MG TABLET PO ×2 (08:26→18:07)
[2021-12-01] MEDS: ASPIRIN 81 MG ENTERIC TABLET PO ×2 (08:26→18:06)
[2021-12-01] MEDS: hydroCHLOROthiazide 25 MG TABLET PO (08:26)
[2021-12-01] MEDS: SILVERGEL (ELTA) 45 ML 1 APPLIC TOPICAL (08:43)
[2021-12-01] MEDS: INSULIN GLARGINE (*BKC) 100 UNITS/ML 45 UNITS SUB-Q ×2 (08:43→18:21)
--- NOTE | 2021-12-01 10:48 | PM.IMPN ---
Progress Note: A&P Assessment and Plan (1) Osteomyelitis of toe of right foot: Code(s): M86.9 - Osteomyelitis, unspecified Status: Acute Assessment and Plan: -She has been started on vancomycin and imipenem. -Pending Dr. Hannon consult (2) Diabetic foot ulcers: Code(s): E11.621 - Type 2 diabetes mellitus with foot ulcer; L97.509 - Non-pressure chronic ulcer of other part of unspecified foot with unspecified severity Status: Acute Assessment and Plan: -Dr. Hannon consulted. -Wound care consult (3) Insulin dependent type 2 diabetes mellitus: Code(s): E11.9 - Type 2 diabetes mellitus without complications; Z79.4 - long term (current) use of insulin Status: Acute Assessment and Plan: -Continue basal insulin. -Initiate sliding scale insulin, Accu-Cheks, and hypoglycemic protocol. -A1c 7.9% (4) Hypertension: Code(s): I10 - Essential (primary) hypertension Status: Acute Assessment and Plan: -Blood pressures were reviewed and they are stable. -Continue antihypertensives and monitor. (5) Chronic anemia: Code(s): D64.9 - Anemia, unspecified Status: Acute Assessment and Plan: -Hemoglobin and hematocrit are stable on review of previous labs. (6) Obstructive sleep apnea: Code(s): G47.33 - Obstructive sleep apnea (adult) (pediatric) Status: Acute Assessment and Plan: -Untreated for many years. -Likely the cause of her hypersomnolence which may be leading to some of her falls. -Unfortunately she does not seem to be willing to try using the CPAP again. Subjective Date/time seen: 12/01/21 10:48 Interval history: 71-year-old female with insulin-dependent diabetes, hypertension, dyslipidemia, sleep apnea, anemia, and multiple other comorbidities admitted for osteomyelitis of the R great toe. She continues to have pain/erythema/edema in the RLE with oozing of the great toe. Has moderate pain. Sent by Dr. Hannon, pending his consultation. No cp/sob. Review of Systems Review of Systems: All systems reviewed & are unremarkable except as noted in HPI and below Exam Narrative: General: Elderly female sitting up in bed. Weight: 79 kg. HEENT: Wearing glasses. PERRL. Sclerae anicteric. Oral mucosa moist. Neck: Supple. Respiratory: Lungs are clear to auscultation bilaterally. Significant kyphosis. Cardiovascular: Regular rate and rhythm with S1-S2. Gastrointestinal: Abdomen is soft, protuberant, nontender, and nondistended with positive bowel sounds. Skin: Warm and dry. Generalized pallor. Chronic stasis dermatitis of the lower limbs bilaterally. There is diffuse edema of the right lower leg with multiple shallow superficial ulceration and serosanguineous drainage. Similar findings noted on the left leg though without significant erythema. There is an open wound on the tip of the first right toe with small amount of purulent drainage and surrounding erythema and edema. The area is warm to touch, extending to the right lower leg. There is also a clean wound on the left first toe, per patient report, which she has just cleaned and wrapped and she would not allow me to take this off for evaluation. Extremities: No cyanosis or clubbing. Bilateral lower extremity edema, right greater than than left. Radial pulses palpable. Pedal pulses diminished but palpable. Neurological: Alert. Cranial nerves 2-12 are grossly intact. No gross focal deficits to casual conversation. Psychiatric: Appropriate mood and affect. Objective Data Vital Signs Vital Signs: Vital Signs - 24 hr 11/30/21 14:39 11/30/21 17:35 11/30/21 18:11 Temperature 97.2 F L Pulse Rate 80 82 82 Respiratory Rate 18 17 16 Blood Pressure 133/44 L 141/68 H 122/67 Pulse Oximetry 98 97 97 11/30/21 19:50 11/30/21 20:07 11/30/21 21:58 Temperature 97.8 F 97.8 F 98.1 F Pulse Rate 75 75 67 Respiratory
[2021-12-01 11:27] LABS: Glucose Point of Care 175 mg/dl (65-105)
[2021-12-01 14:00] VITALS: BP 110/58; PULSE 68; RESP 17; TEMP 36.4; O2SAT 97
[2021-12-01 14:05] VITALS: O2SAT 97
--- NOTE | 2021-12-01 14:21 | PM.IMHP ---
H&P: HPI History of Present Illness Date/Time: 12/01/21 14:21 The patient was admitted through [facility] ER for evaluation and management of multiple foot and leg ulcers with infection. She has a new sore with redness swelling and pain to the right great toe with worsening redness swelling and pain to the right leg where she has multiple draining sore present. She is established with my podiatry practice, she was las seen as an outpatient August 17, 2021. She was being managed for a chronic wound present to the left great toe as well as [facility] management of venous stasis ulers to bilateral lower extremities. She had healed her leg wounds completely with CoFlex Multilayer compression dressings. The patient was still receiving local wound are treatment to the left great toe. She failed to follow up in my office for her two week follow up appointment August 31, 2021. She failed to follow up until she recently presented with her right great toe wound and red swollen painful right leg. She denies any F/C/N/V/SOB and calf pain. She states that she started taking left over Doxycycline on her own 3 days prior to being admitted, no improvement was noted. Chief Complaint: Right lower extremity infections Review of Systems Review of Systems: All systems reviewed & are unremarkable except as noted in HPI and below (HPI.) [facility] Past Medical History Medical History (Updated 11/30/21 @ 19:38 by Hector Sharpe MD) Anemia Anxiety Cerebrovascular accident Presenting with expressive aphasia which has essentially resolved. Chronic kidney disease, stage 3 Chronic low back pain Chronic venous stasis dermatitis of both lower extremities Diverticulosis Dyslipidemia Hypertension Insulin dependent type 2 diabetes mellitus Kidney malignant neoplasm Major depressive disorder, single episode, unspecified Nonalcoholic fatty liver disease Obstructive sleep apnea Intolerant to CPAP. Osteomyelitis of great toe of left foot Renal cell carcinoma Status post partial bilateral nephrectomy. Right femoral fracture ORIF Vitamin B12 deficiency Surgical History Surgical History (Updated 11/30/21 @ 17:29 by Adrienne Robins PA-C) History of arthroplasty of right shoulder History of bilateral salpingo-oophorectomy (12/2008) History of carpal tunnel release History of cataract extraction History of cholecystectomy History of elbow surgery Cubital tunnel release. History of laparotomy (12/2008) Diagnostic laparotomy with extensive adhesiolysis and bilateral salpingo-oophorectomy History of open reduction and internal fixation (ORIF) procedure Right hip fracture. History of partial nephrectomy (2007) Bilateral partial nephrectomy for renal cell carcinoma done at [place]. History of tonsillectomy History of total abdominal hysterectomy History of total right hip arthroplasty Status post insertion of spinal cord stimulator With pain pump for chronic low back pain. Family History Family History (Updated 11/30/21 @ 20:13 by Sheba Head, RN) Father Family history of heart disease in male family member before age 55 Family history of coronary artery disease Cerebrovascular accident Sibling Family history of coronary artery disease Mother Family history of obesity Grandparent Diabetes mellitus Grandparent Family history of glaucoma Other Depression Family history of cardiovascular disease Hypertension Social History Social History (Updated 11/30/21 @ 18:14 by Adrienne Robins PA-C) Social History: . Retired. Daughter and son live with her in [place]. Smokes 1 pack of the day for 44 quit in 2004. Surrogate decision maker: Children or sister. CODE STATUS: Full code. Smoking status: Former smoker Tobacco type: cigarettes Spiritual care concerns: No Meds Home Medications and Allergies Home Medications Medication Instructions Recorded Confirmed Type ferrous sulfate 325 mg (65 mg 325 mg
[2021-12-01 15:05] LABS: CRP 4.9 mg/dL (<1.0)
[2021-12-01 15:43] LABS: Erythrocyte Sedimentation Rate > 140 mm/hr (0-20)
[2021-12-01 16:13] LABS: Glucose Point of Care 132 mg/dl (65-105)
[2021-12-01] MEDS: LATANOPROST 0.005% OP SOLN 2.5 ML BTL 1 DROP EACH EYE (18:06)
[2021-12-01] MEDS: TOLNAFTATE 1% POWDER 45 GM BTL 1 APPLIC TOPICAL (18:06)
[2021-12-01] MEDS: VENLAFAXINE HCL XR 75 MG CAP.ER.24H PO (18:07)
[2021-12-01 20:35] VITALS: PULSE 61; RESP 16; O2SAT 95
[2021-12-01 21:54] VITALS: BP 123/61; PULSE 61; RESP 16; TEMP 36.1; O2SAT 95
[2021-12-01] MEDS: ATORVASTATIN 20 MG TABLET PO (22:38)
[2021-12-02] VITALS (7 sets, daily range): BP systolic 117–140; BP diastolic 43–52; PULSE 65–75; RESP 14–16; TEMP 36.2–37.2; O2SAT 92–97
[2021-12-02 00:25] LABS: Glucose Point of Care 133 mg/dl (65-105)
--- NOTE | 2021-12-02 07:45 | PM.IMPN ---
Progress Note: A&P Assessment and Plan (1) Osteomyelitis of toe of right foot: Code(s): M86.9 - Osteomyelitis, unspecified Status: Acute Assessment and Plan: -She has been started on vancomycin and imipenem. -Dr. Hannon consult thank you for your recommendations -Legs are red and toe is still big and draining -Surgical procedure will be scheduled for outpatient -Continue IV antibiotics -wound culture (2) Diabetic foot ulcers: Code(s): E11.621 - Type 2 diabetes mellitus with foot ulcer; L97.509 - Non-pressure chronic ulcer of other part of unspecified foot with unspecified severity Status: Acute Assessment and Plan: -Dr. Hannon consulted. -Wound care consult (3) Insulin dependent type 2 diabetes mellitus: Code(s): E11.9 - Type 2 diabetes mellitus without complications; Z79.4 - custodial (current) use of insulin Status: Acute Assessment and Plan: -Glucose 79 -Continue basal insulin. -Initiate sliding scale insulin, Accu-Cheks, and hypoglycemic protocol. -A1c 7.9% -Trend glucose -Adjust medications as indicated (4) Hypertension: Code(s): I10 - Essential (primary) hypertension Status: Acute Assessment and Plan: -current BP 140/46 -Blood pressures were reviewed and they are stable. -Continue antihypertensives and monitor. (5) Chronic anemia: Code(s): D64.9 - Anemia, unspecified Status: Acute Assessment and Plan: -H/H 10.6/33.1 -Hemoglobin and hematocrit are stable on review of previous labs. -Continue to trend H/H (6) Obstructive sleep apnea: Code(s): G47.33 - Obstructive sleep apnea (adult) (pediatric) Status: Acute Assessment and Plan: -Untreated for many years. -Likely the cause of her hypersomnolence which may be leading to some of her falls. -Unfortunately she does not seem to be willing to try using the CPAP again. Time Spent With Patient Time with patient: Greater than 35 minutes Subjective Date/time seen: 12/02/21 0745 Interval history: Date/Time: 11/30/21 17:25 Narrative: This is a 71-year-old female with insulin-dependent diabetes, hypertension, dyslipidemia, sleep apnea, anemia, and multiple other comorbidities who presented to the emergency department today from Dr. Hannon' office for evaluation of a right toe infection. She has followed Dr. Hannon intermittently for diabetic foot ulcers over the years and she went and saw him earlier this week for evaluation of a callused and blistered area on the tip of her right toe. The area was cleaned and she was started on doxycycline however despite being compliant with the antibiotic, she has developed increasing swelling and redness about the site. Extremity today showed acute osteomyelitis involving the tuft of the first distal phalanx and she is being admitted in the setting for further care. She believes her glucose is fairly well controlled however it is unusual for her to have numbers around 200. She denies fever, chills, sweats, nausea, and vomiting. No history of MRSA or Pseudomonas skin/soft tissue infection to her knowledge. Date/time seen: 12/01/21 10:48 She continues to have pain/erythema/edema in the RLE with oozing of the great toe. Has moderate pain. Sent by Dr. Hannon, pending his consultation. No cp/sob. Date/time seen: 12/02/21 0745 Patient seems to be doing little bit better today. She stated that she is having a little constipation and that her buttocks is hurting from sitting. Her legs are still very red and warm. She denies any chest pain, shortness of breath, nausea, vomiting, diarrhea, sweats, fevers, chills. She was up walking around but is still having a lot of pain. Review of Systems Review of Systems: All systems reviewed & are unremarkable except as noted in HPI and below Exam Const: General: cooperative, healthy appearing, no acute distress, w
[2021-12-02 08:00] LABS: Glucose Point of Care 76 mg/dl (65-105)
[2021-12-02] MEDS: INSULIN GLARGINE (*BKC) 100 UNITS/ML 45 UNITS SUB-Q ×2 (08:40→17:54)
[2021-12-02] MEDS: ASCORBIC ACID 500 MG TABLET PO (08:42)
[2021-12-02] MEDS: CYCLOBENZAPRINE HCL 5 MG TABLET PO ×2 (08:42→17:52)
[2021-12-02] MEDS: ASPIRIN 81 MG ENTERIC TABLET PO ×2 (08:42→17:51)
[2021-12-02] MEDS: MIRABEGRON 50 MG ER TABLET PO (08:42)
[2021-12-02] MEDS: hydroCHLOROthiazide 25 MG TABLET PO (08:43)
[2021-12-02] MEDS: FERROUS SULFATE 324 MG TABLET PO ×2 (08:43→17:53)
[2021-12-02] MEDS: metFORMIN HCL 500 MG TABLET 1000 MG PO ×2 (08:43→17:53)
[2021-12-02] MEDS: PANTOPRAZOLE 40 MG TABLET PO (08:43)
[2021-12-02] MEDS: busPIRone HCL 5 MG TABLET PO (08:43)
[2021-12-02] MEDS: LORATADINE 10 MG TABLET PO (08:43)
[2021-12-02] MEDS: VALSARTAN 40 MG TABLET PO ×2 (08:44→17:55)
[2021-12-02] MEDS: METOPROLOL SUCCINATE EXT REL 25 MG TABCR PO (08:44)
[2021-12-02] MEDS: OMEGA 3 POLYUNSAT FATTY ACIDS 1 GM CAP PO ×2 (08:45→17:54)
[2021-12-02] MEDS: VENLAFAXINE HCL XR 75 MG CAP.ER.24H 150 MG PO (08:45)
[2021-12-02] MEDS: ENOXAPARIN 40 MG/0.4 ML SYRINGE SUB-Q (08:46)
[2021-12-02] MEDS: DOCUSATE SODIUM 100 MG CAPSULE PO ×2 (08:46→17:51)
[2021-12-02] MEDS: SILVERGEL (ELTA) 45 ML 1 APPLIC TOPICAL (08:47)
[2021-12-02] MEDS: TOLNAFTATE 1% POWDER 45 GM BTL 1 APPLIC TOPICAL (08:47)
[2021-12-02 08:48] LABS: Basophils Absolute Auto 0.1 K/mm3 (0.0-0.1); Basophils Percent Auto 0.9 % (0.2-1.2); Eosinophils Absolute Auto 0.4 K/mm3 (0-0.3); Eosinophils Percent Auto 5.4 % (0-4.4); Hematocrit 33.1 % (37.0-47.0); Hemoglobin 10.6 g/dL (12.0-15.0); Immature Granulocyte Absolute 0.04 K/mm3 (0.00-0.031); Immature Granulocyte Percent A 0.6 % (0-0.5); Lymphocytes Absolute Auto 1.49 K/mm3 (0.9-3.2); Lymphocytes Percent Auto 21.2 % (18.3-44.2); Mean Corpuscular Hemoglobin 25.9 pg (26-34); Mean Corpuscular Volume 80.9 fl (80-100); Mean Platelet Volume 10.6 fl (7.4-10.4); Monocytes Absolute Auto 0.6 K/mm3 (0.1-0.6); Monocytes Percent Auto 8.5 % (2.6-8.5); Neutrophils Absolute Auto 4.5 K/mm3 (1.3-6.7); Neutrophils Percent Auto 63.4 % (45.5-73.1); Platelet Count Result 288 k/mm3 (150-375); Red Blood Count 4.09 M/mm3 (4.2-5.4); Red Cell Distribution Width 13.6 % (11.5-14.5)
[2021-12-02 09:03] LABS: Alanine Aminotransferase 11 U/L (4-35); Alkaline Phosphatase 81 U/L (38-126); Anion Gap 7 mmol/L (8-16); Aspartate Amino Transferase 19 U/L (14-36); Bilirubin,Total 0.3 mg/dL (0.2-1.3); Blood Urea Nitrogen 24 mg/dL (7-17); Calcium 9.3 mg/dL (8.4-10.2); Carbon Dioxide 32 mmol/L (22-30); Chloride 99 mmol/L (98-107); Estimated CRCL calculation 53 ml/min; Estimated Glomerular Filt Rate > 60; Glucose 79 mg/dL (65-110); Potassium 5.3 mmol/L (3.4-5.0); Sodium 138 mmol/L (137-145)
[2021-12-02 11:55] LABS: Glucose Point of Care 145 mg/dl (65-105)
[2021-12-02 16:38] LABS: Glucose Point of Care 157 mg/dl (65-105)
[2021-12-02] MEDS: VENLAFAXINE HCL XR 75 MG CAP.ER.24H PO (17:53)
[2021-12-02] MEDS: LATANOPROST 0.005% OP SOLN 2.5 ML BTL 1 DROP EACH EYE (17:53)
[2021-12-02] MEDS: ATORVASTATIN 20 MG TABLET PO (20:46)
[2021-12-02 22:59] LABS: Glucose Point of Care 92 mg/dl (65-105)
[2021-12-03 05:54] VITALS: BP 129/44; PULSE 77; RESP 16; TEMP 36.3; O2SAT 95
[2021-12-03 06:06] LABS: Basophils Absolute Auto 0.1 K/mm3 (0.0-0.1); Basophils Percent Auto 0.7 % (0.2-1.2); Eosinophils Absolute Auto 0.4 K/mm3 (0-0.3); Eosinophils Percent Auto 5.1 % (0-4.4); Hemoglobin 10.4 g/dL (12.0-15.0); Immature Granulocyte Absolute 0.05 K/mm3 (0.00-0.031); Immature Granulocyte Percent A 0.7 % (0-0.5); Lymphocytes Absolute Auto 1.52 K/mm3 (0.9-3.2); Lymphocytes Percent Auto 20.5 % (18.3-44.2); Mean Corpuscular HGB Conc 32.5 g/dl (32-36); Mean Platelet Volume 10.7 fl (7.4-10.4); Monocytes Absolute Auto 0.6 K/mm3 (0.1-0.6); Monocytes Percent Auto 8.4 % (2.6-8.5); Neutrophils Absolute Auto 4.8 K/mm3 (1.3-6.7); Neutrophils Percent Auto 64.6 % (45.5-73.1); Platelet Count Result 264 k/mm3 (150-375); Red Cell Distribution Width 13.6 % (11.5-14.5); White Blood Count 7.4 K/mm3 (4.5-10.0)
[2021-12-03 06:25] LABS: Alanine Aminotransferase 11 U/L (4-35); Albumin Level 3.7 g/dL (3.5-5.1); Alkaline Phosphatase 76 U/L (38-126); Anion Gap 9 mmol/L (8-16); Aspartate Amino Transferase 20 U/L (14-36); Bilirubin,Total 0.1 mg/dL (0.2-1.3); Blood Urea Nitrogen 26 mg/dL (7-17); Calcium 8.7 mg/dL (8.4-10.2); Carbon Dioxide 30 mmol/L (22-30); Chloride 99 mmol/L (98-107); Estimated CRCL calculation 48 ml/min; Estimated Glomerular Filt Rate 55; Glucose 68 mg/dL (65-110); Magnesium 1.4 mg/dL (1.6-2.3); Sodium 138 mmol/L (137-145)
[2021-12-03] MEDS: MAGNESIUM SULF 4 GM/WATER100ML 4 GM/100 ML BAG IVPB (07:05)
[2021-12-03 07:39] LABS: Glucose Point of Care 64 mg/dl (65-105)
[2021-12-03 08:00] VITALS: PULSE 77; RESP 16; O2SAT 95
[2021-12-03 08:20] LABS: Glucose Point of Care 87 mg/dl (65-105)
--- NOTE | 2021-12-03 08:30 | PM.DS ---
DS: Admitting Diagnosis Discharge Date 12/03/21829 Admitting Diagnosis Osteomyelitis the right big toe DS: Discharge Diagnosis Discharge Diagnosis (1) Osteomyelitis of toe of right foot: Code(s): M86.9 - Osteomyelitis, unspecified Status: Acute Assessment and Plan: -She has been started on vancomycin and imipenem. -Dr. Hannon consult thank you for your recommendations -Legs are red and toe is still big and draining -Surgical procedure will be scheduled for outpatient -Continue IV antibiotics -wound culture (2) Diabetic foot ulcers: Code(s): E11.621 - Type 2 diabetes mellitus with foot ulcer; L97.509 - Non-pressure chronic ulcer of other part of unspecified foot with unspecified severity Status: Acute Assessment and Plan: -Dr. Hannon consulted. -Wound care consult (3) Insulin dependent type 2 diabetes mellitus: Code(s): E11.9 - Type 2 diabetes mellitus without complications; Z79.4 - intermediate (current) use of insulin Status: Acute Assessment and Plan: -Glucose 79 -Continue basal insulin. -Initiate sliding scale insulin, Accu-Cheks, and hypoglycemic protocol. -A1c 7.9% -Trend glucose -Adjust medications as indicated (4) Hypertension: Code(s): I10 - Essential (primary) hypertension Status: Acute Assessment and Plan: -current BP 140/46 -Blood pressures were reviewed and they are stable. -Continue antihypertensives and monitor. (5) Chronic anemia: Code(s): D64.9 - Anemia, unspecified Status: Acute Assessment and Plan: -H/H 10.6/33.1 -Hemoglobin and hematocrit are stable on review of previous labs. -Continue to trend H/H (6) Obstructive sleep apnea: Code(s): G47.33 - Obstructive sleep apnea (adult) (pediatric) Status: Acute Assessment and Plan: -Untreated for many years. -Likely the cause of her hypersomnolence which may be leading to some of her falls. -Unfortunately she does not seem to be willing to try using the CPAP again. DS: Summary Hospital Course Hospital Course: Patient is a 71-year-old female with a past medical history of diabetes, hypertension, hyperlipidemia, sleep apnea, anemia who presented to the ED from Dr. Hannon's office for evaluation of the right toe infection. Patient does not seem to be compliant. And intermittently follows up with Dr. Hannon in the office. According the notes patient started herself back on doxycycline due to the increased redness, swelling and pain she was experiencing. X-rays indicate the patient has osteomyelitis to the right 1st distal phalanx involving the tuft. Dr. Marc is was consulted and stated the patient needs to have the tuft removed and is wanting to do that the office. He also stated patient go home on oral antibiotics and will follow-up with him in the office in the next week or 2. Patient is feeling much better today with no pain. She was started on vancomycin and tandem which has been transitioned to Bactrim orally. Wound culture has been sent and is still pending. Blood cultures are resulted show no growth today. Glucose has been better controlled and her insulin has been adjusted. Patient has been moving around using a cane in the room. She denies any chest pain, shortness of breath, nausea, vomiting, diarrhea, constipation, weakness or fatigue. She did state that she was able to tolerate the Bactrim and education was given to her about taking with a full glass of water. Patient is stable for discharge for labs and vital signs at this time. Case was reviewed with Dr. Coto who agrees with discharge at this time. Antibiotics were picked in collaboration with Dr. Coto. Patient is aware that she needs to follow up with Dr. Hannon at the specified time. Status at Discharge Functional status at discharge: uses cane/walker Overall status at discharge: patient is progress
[2021-12-03] MEDS: FERROUS SULFATE 324 MG TABLET PO (10:36)
[2021-12-03] MEDS: VENLAFAXINE HCL XR 75 MG CAP.ER.24H 150 MG PO (10:37)
[2021-12-03] MEDS: metFORMIN HCL 500 MG TABLET 1000 MG PO (10:37)
[2021-12-03] MEDS: hydroCHLOROthiazide 25 MG TABLET PO (10:38)
[2021-12-03] MEDS: DOCUSATE SODIUM 100 MG CAPSULE PO (10:38)
[2021-12-03] MEDS: ASPIRIN 81 MG ENTERIC TABLET PO (10:38)
[2021-12-03] MEDS: INSULIN GLARGINE (*BKC) 100 UNITS/ML 45 UNITS SUB-Q (10:38)
[2021-12-03] MEDS: ASCORBIC ACID 500 MG TABLET PO (10:38)
[2021-12-03] MEDS: CYCLOBENZAPRINE HCL 5 MG TABLET PO (10:38)
[2021-12-03] MEDS: ENOXAPARIN 40 MG/0.4 ML SYRINGE SUB-Q (10:38)
[2021-12-03 10:39] VITALS: PULSE 80
[2021-12-03] MEDS: METOPROLOL SUCCINATE EXT REL 25 MG TABCR PO (10:39)
[2021-12-03] MEDS: LORATADINE 10 MG TABLET PO (10:39)
[2021-12-03] MEDS: OMEGA 3 POLYUNSAT FATTY ACIDS 1 GM CAP PO (10:40)
[2021-12-03] MEDS: PANTOPRAZOLE 40 MG TABLET PO (10:41)
[2021-12-03] MEDS: TOLNAFTATE 1% POWDER 45 GM BTL 1 APPLIC TOPICAL (10:41)
[2021-12-03] MEDS: SILVERGEL (ELTA) 45 ML 1 APPLIC TOPICAL (10:41)
[2021-12-03] MEDS: VALSARTAN 40 MG TABLET PO (10:41)
[2021-12-03] MEDS: MIRABEGRON 50 MG ER TABLET PO (10:41)
[2021-12-03 12:07] LABS: Glucose Point of Care 63 mg/dl (65-105)
[2021-12-03 12:35] LABS: Glucose Point of Care 61 mg/dl (65-105)
[2021-12-03 13:04] LABS: Glucose Point of Care 103 mg/dl (65-105)
--- NOTE | 2021-12-03 13:48 | WPDPN ---
Progress Note: A&P Additional Plan 1. Chronic diabetic ulceration right hallux with osteomyelitis- I will perform partial right hallux amputation of the right hallux when OR schedule allows this coming week. Discharged on Bactrim DS per internal medicine. 2. Chronic venous insufficiency to the right leg use compression sleeves daily, comtiue with oral abx per medicine. 3. Chronic ulceration of the left hallux will perform arthrodesis of the left hallux as an outpatient to reduce the deformity resulting in an ulceration. Dr. Hannon Subjective Date/time seen: 12/03/21 13:48 Patient seen at bedside resting comfortably. Less pain to the right leg and right great toe. No F/C/N/V/SOB Exam Extrem: Other: Right hallux less edematous and erythematous. Small ulcer still present. Erythema to the right leg much improved, no calor present. Skin is thin and shiny with brawny edema present. Objective Data Vital Signs Vital Signs: Vital Signs - 24 hr 12/02/21 14:00 12/02/21 20:20 12/02/21 21:24 Temperature 36.4 C Pulse Rate 66 65 Respiratory Rate 14 16 Blood Pressure 117/43 L Pulse Oximetry 97 96 96 12/02/21 21:50 12/03/21 05:54 12/03/21 08:00 Temperature 36.2 C L 36.3 C L Pulse Rate 65 77 77 Respiratory Rate 16 16 16 Blood Pressure 126/52 L 129/44 L Pulse Oximetry 96 95 95 12/03/21 10:39 Temperature Pulse Rate 80 Respiratory Rate Blood Pressure Pulse Oximetry Intake/Output Intake/Output: Intake & Output 11/30/21 12/01/21 12/02/21 12/03/21 23:59 23:59 23:59 23:59 Intake Total 700 2622 3060 1600 Output Total 2650 2150 1000 Balance 700 -28 910 600 Meds/Results Medications: Active Medications Generic Name Dose Route Start Last Admin Trade Name Freq PRN Reason Stop Dose Admin Acetaminophen 650 mg 11/30/21 17:47 Acetaminophen 325 Mg Tablet PO Q4H PRN Mild Pain (1-3) or Fever Ascorbic Acid 500 mg 12/01/21 09:00 12/03/21 10:38 Ascorbic Acid 500 Mg Tablet PO 500 mg QAM ESTER Administration Aspirin 81 mg 12/01/21 09:00 12/03/21 10:38 Aspirin 81 Mg Enteric Tablet PO 81 mg BID ESTER Administration Atorvastatin Calcium 20 mg 12/01/21 21:00 12/02/21 20:46 Atorvastatin 20 Mg Tablet PO 20 mg HS ESTER Administration Buspirone HCl 5 mg 12/01/21 00:15 12/02/21 08:43 Buspirone Hcl 5 Mg Tablet PO 5 mg BID PRN Administration Anxiety Cyclobenzaprine HCl 5 mg 12/01/21 09:00 12/03/21 10:38 Cyclobenzaprine Hcl 5 Mg Tablet PO 5 mg BID ESTER Administration Dextrose 12.5 gm 11/30/21 18:02 Dextrose 50% 25 Gm/50 Ml Syringe IV PUSH PRN PRN Hypoglycemia Protocol Docusate Sodium 100 mg 12/01/21 09:00 12/03/21 10:38 Docusate Sodium 100 Mg Capsule PO 100 mg BID ESTER Administration Enoxaparin Sodium 40 mg 12/01/21 09:00 12/03/21 10:38 Enoxaparin 40 Mg/0.4 Ml Syringe SUB-Q 40 mg DAILY ESTER Administration Ferrous Sulfate 324 mg 12/01/21 08:00 12/03/21 10:36 Ferrous Sulfate 324 Mg Tablet PO 324 mg BIDWM ESTER Administration Fish Oil 1 gm 12/01/21 09:00 12/03/21 10:40 Heath 3 Polyunsat Fatty Acids 1 Gm Cap PO 1 gm BID ESTER Administration Glucagon 1 mg 11/30/21 18:02 Glucagon For Inj 1 Mg Vial IM PRN PRN Hypoglycemia Protocol Glucose 15 gm 11/30/21 18:02 Glucose Oral Gel 15 Gm Of Glucse In 37.5 Gm Tube PO PRN PRN Hypoglycemia Protocol Home Med 0 each 12/02/21 06:00 Home Medication-Medtronic Pain Pump XX 01/01/22 05:59 DAILY@0600 [facility] Hydrochlorothiazide 25 mg 12/01/21 09:00 12/03/21 10:38 Hydrochlorothiazide 25 Mg Tablet PO 25 mg DAILY ESTER Administration Dextrose 1,000 mls @ 100 mls/hr 11/30/21 18:02 Dextrose 5% 1,000 Ml IVPB PRN PRN Hypoglycemia Protocol Insulin Aspart 3 - 6 units 12/01/21 08:00 12/03/21 08:31 Insulin Aspart (*Bkc) 100 Units/Ml SUB-Q Not Given TIDWM ESTER Protocol
--- NOTE | 2021-12-05 09:14 | PC.NURSE ---
Wound cx growing staph aureus. Patient dc on Bactrim which is susceptible.
== END 2021-12-03 13:50 | disposition home or self-care (01) | DRG 638 ==
LOC: ANHED 15:56 → ANH3MEDSUR 18:44
PROVIDERS: Emergency Medicine; Physician Assistant; Podiatrist Foot & Ankle Surgery; Admitting Provider Internal Medicine; Emergency Provider Emergency Medicine; PCP Family Medicine; Visit Provider Nurse Practitioner
DX: E11.69 Type 2 diabetes mellitus with other specified complication (principal); M86.171 Other acute osteomyelitis, right ankle and foot; E11.621 Type 2 diabetes mellitus with foot ulcer; Z79.4 Long term (current) use of insulin; D64.9 Anemia, unspecified; G47.33 Obstructive sleep apnea (adult) (pediatric); F32.9 Major depressive disorder, single episode, unspecified; E78.5 Hyperlipidemia, unspecified; E53.8 Deficiency of other specified B group vitamins; F41.9 Anxiety disorder, unspecified; N18.30 Chronic kidney disease, stage 3 unspecified; I12.9 Hypertensive chronic kidney disease with stage 1 through stage 4 chronic kidney disease, or unspecified chronic kidney disease; E11.22 Type 2 diabetes mellitus with diabetic chronic kidney disease; Z86.73 Personal history of transient ischemic attack (TIA), and cerebral infarction without residual deficits; I87.8 Other specified disorders of veins; Z90.5 Acquired absence of kidney; Z85.528 Personal history of other malignant neoplasm of kidney; L97.519 Non-pressure chronic ulcer of other part of right foot with unspecified severity; Z82.49 Family history of ischemic heart disease and other diseases of the circulatory system; Z83.3 Family history of diabetes mellitus; Z96.82 Presence of neurostimulator; Z91.81 History of falling; Z79.899 Other long term (current) drug therapy
CPT/HCPCS: 36415; 73620; 73660; 80048; 80053; 80202; 82040; 82948; 83036; 83735; 84155; 85025; 85652; 86140; 87040; 87070; 87147; 87181; 87186; 87205; 93925; 93970; 96366; 96372; A9270; G0378; J0743; J1650; J1815; J3370; J3475

== ENCOUNTER 2021-12-04 01:22 | Emergency (ER) | payer MEDICARE, OTHER, SELFPAY ==
[2021-12-04] VITALS (7 sets, daily range): BP systolic 126–141; BP diastolic 50–89; PULSE 86–95; RESP 16–18; TEMP 36.8–37.1; O2SAT 91–100
[2021-12-04 03:12] LABS: Basophils Absolute Auto 0.1 K/mm3 (0.0-0.1); Basophils Percent Auto 0.4 % (0.2-1.2); Eosinophils Absolute Auto 0.1 K/mm3 (0-0.3); Eosinophils Percent Auto 0.4 % (0-4.4); Hematocrit 31.9 % (37.0-47.0); Hemoglobin 10.4 g/dL (12.0-15.0); Immature Granulocyte Absolute 0.09 K/mm3 (0.00-0.031); Immature Granulocyte Percent A 0.8 % (0-0.5); Lymphocytes Absolute Auto 0.78 K/mm3 (0.9-3.2); Lymphocytes Percent Auto 6.7 % (18.3-44.2); Mean Corpuscular HGB Conc 32.6 g/dl (32-36); Mean Corpuscular Hemoglobin 25.9 pg (26-34); Mean Corpuscular Volume 79.4 fl (80-100); Mean Platelet Volume 10.6 fl (7.4-10.4); Monocytes Absolute Auto 0.4 K/mm3 (0.1-0.6); Monocytes Percent Auto 3.4 % (2.6-8.5); Neutrophils Absolute Auto 10.3 K/mm3 (1.3-6.7); Neutrophils Percent Auto 88.3 % (45.5-73.1); Platelet Count Result 277 k/mm3 (150-375); Red Blood Count 4.02 M/mm3 (4.2-5.4); Red Cell Distribution Width 13.7 % (11.5-14.5); White Blood Count 11.6 K/mm3 (4.5-10.0)
[2021-12-04 03:25] LABS: Anion Gap 8 mmol/L (8-16); Blood Urea Nitrogen 27 mg/dL (7-17); Calcium 8.5 mg/dL (8.4-10.2); Carbon Dioxide 28 mmol/L (22-30); Chloride 97 mmol/L (98-107); Estimated CRCL calculation 38 ml/min; Estimated Glomerular Filt Rate 40; Glucose 78 mg/dL (65-110); Potassium 4.9 mmol/L (3.4-5.0); Sodium 133 mmol/L (137-145)
[2021-12-04 03:26] LABS: Glucose Point of Care 74 mg/dl (65-105)
[2021-12-04] MEDS: SODIUM CHLORIDE 0.9% IV 1,000 ML 999 ML IV CONT (04:01)
--- NOTE | 2021-12-04 05:01 | ED.NAVMDI ---
HPI - Nausea/Vomiting/Diarrhea General Chief complaint: Nausea/Vomiting/Diarrhea Stated complaint: nausea Time Seen by Provider: 12/04/21 01:26 History of Present Illness HPI Narrative: Patient is a 71-year-old female who presents ER with nausea and vomiting. Patient just discharged from the hospital. Recently diagnosed with osteomyelitis of the toe. Discharged home on Bactrim DS. She took it this evening and afterwards developed some nausea and vomiting. She also had some diarrhea. No fevers or chills or sweats. She do not fall or strike her head. She has no nausea at this time. Related Data Home Medications Medication Instructions Recorded Confirmed ferrous sulfate 325 mg (65 mg 325 mg PO BID tablet 06/22/19 11/30/21 iron) tablet Lumigan 1 drp EACH EYE QPM 11/17/20 11/30/21 ascorbate calcium (vitamin C) 500 mg PO DAILY 11/17/20 11/30/21 Lantus Solostar U-100 Insulin 45 unit SUBCUT BID 11/14/21 11/30/21 Myrbetriq 50 mg PO QAM 11/30/21 11/30/21 buspirone 5 mg PO BID PRN 11/30/21 11/30/21 cyclobenzaprine 5 mg PO BID 11/30/21 11/30/21 docusate sodium 100 mg PO BID 11/30/21 11/30/21 metoprolol succinate [Toprol XL] 25 mg PO QAM 11/30/21 11/30/21 Allergies Allergy/AdvReac Type Severity Reaction Status Date / Time oxybutynin Allergy Intermediate PROBLEMS Verified 11/30/21 15:33 BREATHING fexofenadine Allergy Unknown UPPER RESP Verified 11/30/21 15:33 INFECTION lisinopril Allergy Unknown TONGUE Verified 11/30/21 15:33 Swelling paroxetine Allergy Unknown NIGHT Verified 11/30/21 15:33 SWEATS bupropion AdvReac Unknown Nervousness Verified 11/30/21 15:33 tizanidine AdvReac Unknown blurred Verified 11/30/21 15:33 vision Review of Systems Review of Systems: All systems reviewed & are unremarkable except as noted in HPI and below Constitutional: Constitutional: Denies chills, Denies fever(s) and Denies weakness ENT: Denies nasal congestion and Denies sore throat Cardiovascular: Cardiovascular: Denies chest pain, Denies rapid heart rate and Denies radiating jaw, neck or arm pain Gastrointestinal: Gastrointestinal: Denies abdominal pain, Reports diarrhea, Reports nausea and Reports vomiting Genitourinary: Genitourinary: Denies nocturia, Denies dysuria and Denies flank pain PMF Past Medical History Medical History (Updated 12/04/21 @ 05:02 by Hector Sharpe MD) Anemia Anxiety Cerebrovascular accident Presenting with expressive aphasia which has essentially resolved. Chronic kidney disease, stage 3 Chronic low back pain Chronic venous stasis dermatitis of both lower extremities Diverticulosis Dyslipidemia Hypertension Insulin dependent type 2 diabetes mellitus Kidney malignant neoplasm Major depressive disorder, single episode, unspecified Nonalcoholic fatty liver disease Obstructive sleep apnea Intolerant to CPAP. Osteomyelitis of great toe of left foot Renal cell carcinoma Status post partial bilateral nephrectomy. Right femoral fracture ORIF Vitamin B12 deficiency Surgical History Surgical History (Updated 11/30/21 @ 17:29 by RUTH ANN MarquisC) History of arthroplasty of right shoulder History of bilateral salpingo-oophorectomy (12/2008) History of carpal tunnel release History of cataract extraction History of cholecystectomy History of elbow surgery Cubital tunnel release. History of laparotomy (12/2008) Diagnostic laparotomy with extensive adhesiolysis and bilateral salpingo-oophorectomy History of open reduction and internal fixation (ORIF) procedure Right hip fracture. History of partial nephrectomy (2007) Bilateral partial nephrectomy for renal cell carcinoma done at [place]. History of tonsillectomy History of total abdominal hysterectomy History of total right hip arthroplasty Status post insertion of spinal cord stimulator With pain pump for chronic low back pain. Family History Family History (Updated 11/30/21 @ 20:13 by Sheba Head RN)
== END 2021-12-04 05:20 | disposition home or self-care (01) ==
PROVIDERS: Emergency Provider Emergency Medicine; PCP Family Medicine
DX: R11.2 Nausea with vomiting, unspecified (principal); T36.8X5A Adverse effect of other systemic antibiotics, initial encounter; E11.69 Type 2 diabetes mellitus with other specified complication; M86.9 Osteomyelitis, unspecified; D64.9 Anemia, unspecified; Z86.73 Personal history of transient ischemic attack (TIA), and cerebral infarction without residual deficits; E11.22 Type 2 diabetes mellitus with diabetic chronic kidney disease; I12.9 Hypertensive chronic kidney disease with stage 1 through stage 4 chronic kidney disease, or unspecified chronic kidney disease; N18.30 Chronic kidney disease, stage 3 unspecified; E78.5 Hyperlipidemia, unspecified; G47.33 Obstructive sleep apnea (adult) (pediatric); F41.9 Anxiety disorder, unspecified; F32.9 Major depressive disorder, single episode, unspecified; E53.8 Deficiency of other specified B group vitamins; Z85.528 Personal history of other malignant neoplasm of kidney; Z79.4 Long term (current) use of insulin; Z98.49 Cataract extraction status, unspecified eye; Z90.5 Acquired absence of kidney; Z96.641 Presence of right artificial hip joint; Z96.611 Presence of right artificial shoulder joint; Z96.82 Presence of neurostimulator; Z87.891 Personal history of nicotine dependence; Z79.82 Long term (current) use of aspirin; Z79.84 Long term (current) use of oral hypoglycemic drugs
CPT/HCPCS: 36415; 80048; 82948; 85025; 96360; 99283; J7030

== ENCOUNTER 2021-12-06 01:01 | Day surgery (SDC) | payer MEDICARE, OTHER, SELFPAY ==
[2021-12-05 14:18] VITALS: BMI 27.4
--- NOTE | 2021-12-05 14:30 | PC.NURSE ---
Report to the Outpatient Waiting Room, entrance under the green pavilion located off [facility], at time _0700_ on date _12/06/21_. OR Time: _0900_. - You and your visitor will be asked a series of questions to screen for COVID 19 for your protection. - A mask is required within the hospital. One visitor will be allowed to accompany the patient into the hospital. Patients visitor will be instructed to remain with patient at all times or leave the building. We will allow the visitor to come back to the postoperative area when patient is ready. Preoperative COVID Testing Requirements: NONE Patients may have clear liquids (water, carbonated beverages, clear teas, apple juice) until 3 hours prior to surgery (0600 AM) with a maximum of 20 ounces. - No food from midnight until time of surgery Take the following medications with a SIP of water the morning of surgery: _BUSPIRONE, CYCLOBENZAPRINE, METOPROLOL, VENLAFAXINE_ Medications to discontinue per physician _ASPIRIN PER DR. SCHWARZ, VITAMINS AND SUPPLEMENTS OF TODAY__ Please no make-up, nail ecuadorean, hairspray, perfume, deodorant, or body powder the day of surgery. No jewelry (including any body piercings) or valuables the day of surgery, leave them at home. Please take a shower or bath the night before, or the morning of, surgery with an antibacterial soap. Wear comfortable, loose fitting clothing. - Jewelry must be removed prior to entering the operating room. Rings and piercings that are not removed may be cut off. - The hospital will not accept responsibility for valuables. - Please leave all valuables, including medications, at home the day of surgery. If you are going home after surgery, a licensed cat driver must drive you home. - NO public transportation without another adult. - We recommend that an adult stay with you for 24 hours following discharge. - We also recommend that you do not drive, make important decision, drink alcoholic beverages, or take any drugs that were not prescribed by your health care provider for at least 24 hours after your discharge time. One visitor will be allowed to accompany the patient into the hospital. Patients visitor will be instructed to remain with patient at all times or leave the building. We will allow the visitor to come back to the postoperative area when patient is ready. Follow any additional instructions given to you from your surgeon. Telephone instructions given to ____PT and asked if any additional questions and then verbalized understanding. Patient advised to call surgeon office or pre surgery nurse liaison [phone] if any additional questions.
[2021-12-06] VITALS (12 sets, daily range): BP systolic 94–162; BP diastolic 40–76; PULSE 68–101; RESP 14–20; TEMP 36.6–36.9; O2SAT 90–100
--- NOTE | ~2021-12-06 | XR_ITS ---
EXAMINATION: XR surgery orthopedic DATE: 12/06/2021 10:20 INDICATION: Left great toe arthrodesis TECHNIQUE: 2 fluoroscopic images of the left forefoot and one of the right forefoot were obtained dur ing procedure performed by Dr. Hannon. Radiologist was not present for the imaging or procedure. Th e amount of fluoroscopy time used during this procedure was 0.4 minutes. COMPARISON: 12/01/2021 FINDINGS: Interval osteotomy across the midportion of the left first proximal phalanx. This along with the firs t interphalangeal joint are spanned by a compression screw which extends from the tuft of the distal phalanx to the base of the proximal phalanx. Persistent widening of the second distal interphalangeal joint with small second distal phalanx. Amputation of the right first distal phalanx. No acute fract ures identified. IMPRESSION: 1. Fluoroscopy utilized during orthopedic procedures at the bilateral great toes as detailed above. S ee procedure note for further detail. Reviewed, dictated and finalized at location B. IMPRESSION: 1. Fluoroscopy utilized during orthopedic procedures at the bilateral great toe s as detailed above. See procedure note for further detail.
--- NOTE | 2021-12-06 06:57 | WPDANESEPPF ---
Anes - Initial Pre Proc Eval Procedure: Operation Date: 12/06/21 09:00 Proposed Procedures p Partial Right Hallux Amputation, - Varinder Hannon JR, MD s Arthrodesis Interphalangeal Joint Left Hallux - Varinder Hannon JR, MD Date/Time: 12/06/21 06:57 Surgeon: Varinder Hannon JR, MD Pre Op Diagnosis: ostemylitis rt hallux, chronic ulcer left hallux Patient Data Age: 71 Gender: F Height: 1.68 m Weight: 77.2 kg Allergies Allergy/AdvReac Type Severity Reaction Status Date / Time lisinopril Allergy Severe TONGUE Verified 12/06/21 07:11 Swelling oxybutynin Allergy Severe PROBLEMS Verified 12/06/21 07:11 BREATHING fexofenadine Allergy Mild UPPER RESP Verified 12/06/21 07:11 INFECTION paroxetine Allergy Unknown NIGHT Verified 11/30/21 15:33 SWEATS bupropion AdvReac Unknown Nervousness Verified 11/30/21 15:33 tizanidine AdvReac Unknown blurred Verified 11/30/21 15:33 vision Home Medications Medication Instructions Recorded Confirmed Type ferrous sulfate 325 mg (65 mg 325 mg PO BID tablet 06/22/19 12/06/21 History iron) tablet Lumigan 1 drp EACH EYE QPM 11/17/20 12/06/21 History ascorbate calcium (vitamin C) 500 mg PO DAILY 11/17/20 12/06/21 History Silver-Sept 1 applic TOPICAL DAILY #60 g 11/21/20 12/06/21 Rx valsartan 40 mg tablet 40 mg PO BID #180 tablet 02/02/21 12/06/21 Rx hydrochlorothiazide 25 mg tablet 25 mg PO DAILY #90 tablet 05/08/21 12/06/21 Rx pantoprazole 40 mg tablet,delayed 40 mg PO QAM #90 tablet 05/08/21 12/06/21 Rx release atorvastatin 20 mg tablet 20 mg PO HS #90 tablet 06/13/21 12/06/21 Rx aspirin 81 mg tablet,delayed 81 mg PO BID #180 tablet 09/01/21 12/06/21 Rx release loratadine 10 mg tablet 10 mg PO DAILY #90 tablet 09/01/21 12/06/21 Rx metformin 500 mg tablet 1,000 mg PO BID #360 tablet 09/01/21 12/06/21 Rx omega-3 acid ethyl esters 1 gram 1 cap PO BID #180 cap 09/01/21 12/06/21 Rx capsule venlafaxine 75 mg capsule,extended 75 mg PO .COMPLEX #270 cap 09/11/21 12/06/21 Rx release 24 hr Lantus Solostar U-100 Insulin 45 unit SUBCUT BID 11/14/21 12/06/21 History Myrbetriq 50 mg PO QAM 11/30/21 12/06/21 History buspirone 5 mg PO BID PRN 11/30/21 12/06/21 History cyclobenzaprine 5 mg PO BID 11/30/21 12/06/21 History docusate sodium 100 mg PO BID 11/30/21 12/06/21 History metoprolol succinate [Toprol XL] 25 mg PO QAM 11/30/21 12/06/21 History sulfamethoxazole-trimethoprim 2 tablet PO Q12HR 14 Days #56 12/03/21 12/06/21 Rx tablet ondansetron HCl 4 mg PO Q8H #10 tablet 12/04/21 12/06/21 Rx Patient hx anesthesia problems: none Family hx anesthesia problems: none Results Review: All pre-operative results and documents have been reviewed as part of the pre-operative evaluation. [facility] Past Medical History Medical History Anemia Anxiety Cerebrovascular accident Presenting with expressive aphasia which has essentially resolved. Chronic kidney disease, stage 3 Chronic low back pain Chronic venous stasis dermatitis of both lower extremities Diverticulosis Dyslipidemia Hypertension Insulin dependent type 2 diabetes mellitus Kidney malignant neoplasm Major depressive disorder, single episode, unspecified Nonalcoholic fatty liver disease Obstructive sleep apnea Intolerant to CPAP. Osteomyelitis of great toe of left foot Renal cell carcinoma Status post partial bilateral nephrectomy. Right femoral fracture ORIF Vitamin B12 deficiency Surgical History Surgical History History of arthroplasty of right shoulder History of bilateral salpingo-oophorectomy (12/2008) History of carpal tunnel release History of cataract extraction History of cholecystectomy History of elbow surgery Cubital tunnel release. History of laparotomy (12/2008) Diagnostic laparotomy with extensive adhesiolysis and bilateral salpingo-oophorectomy History of ope
[2021-12-06] MEDS: LACTATED RINGERS 1,000 ML 30 ML IV CONT (07:50)
[2021-12-06 08:02] LABS: Glucose Point of Care 96 mg/dl (65-105)
--- NOTE | 2021-12-06 08:22 | SUR.PREOP ---
0745-STATES MULTIPLE OPEN AREAS ON LOWER LEGS, ALSO, BOTH GREAT TOES WITH OPEN AREAS-PATIENT HAS DRESSINGS ON ALL AREAS PER INSTRUCTIONS OF DR. SCHWARZ. DRESSINGS NOT REMOVED AT THIS TIME, NO DRAINAGE VISIBLE ON DRESSINGS.
[2021-12-06 08:26] LABS: INR 1.1; Prothrombin Time 13.7 Seconds (11.1-14.7)
[2021-12-06 08:27] LABS: Partial Thromboplastin Time 31.9 SECONDS (22.3-36.8)
--- NOTE | 2021-12-06 08:39 | WPDHPUPDATE1 ---
History and Physical Update Update Date/Time: 12/06/21 08:39 History and Physical has been reviewed, including an updated exam of the patient. There are NO changes in the patient's condition. Risks, benefits, and alternatives have been discussed and questions answered. Patient agrees to proceed with procedure.
[2021-12-06] MEDS: ceFAZolin 2 GM/D5W 50 ML 2 GM/50 ML BAG IVPB (08:52)
[2021-12-06] MEDS: LIDOCAINE HCL 2% PF INJ 5 ML VIAL 10 ML INFILTRATE (09:31)
--- NOTE | 2021-12-06 10:39 | W.PM.PROC2 ---
Procedure Note - Detailed Date of Procedure 12/06/21 Pre-op Diagnosis 1. Osteomyelitis distal phalanx right hallux 2. Chronic ulcer left hallux with a dorsal dislocation of the distal phalanx of the interphalangeal joint Post-op Diagnosis Same Procedure Performed 1. Partial amputation of the right hallux 2. Arthrodesis of the interphalangeal joint of the left hallux Surgeon Varinder Hannon JR, DPRoxane Anesthesia MAC and Local Indications Bone infection right hallux Ulcer left hallux Description of Procedure Under mild sedation, the patient was brought to the operating room, placed on the operating table in the supine position. A pneumatic ankle tourniquet was placed about the patient's ankle. Following IV sedation, I performed a proximal first metatarsal Whitfield Block. The foot was then scrubbed, prepped, and draped in the usual aseptic manner. An Esmarch bandage was then used to examine the patient's foot and pneumatic ankle tourniquet was then inflated. Surgery began in the following manner. Attention was directed to the left hallux of the left foot where a 3cm incision was made just proximal to the nail fold extending to the base of the hallux. A transverse tenotomy was created dorsal to the interphalangeal joint, next the head of the proximal phalanx was resected with an sagittal saw blade. The interphalangeal joint was ankylosed so a portion of the head of the proximal phalanx was resected and feathered until the hallux was in a rectus postion. Next, I drove a guide wire, double ended, from the base of the distal phalanx exiting the hallux and retrograded through the proximal phalanx. Fluoroscopy was used to make sure that the digit and implant were both appropriately positioned, next I drove a cannulated Arthrex 3.5mm headless compression screw from the distal phalanx through the ankylosed interphalangeal joint and finally into the proximal phalanx. I repaired the extensor tendon with 4.0 vicryl. I reapproximated the subcutaneous structures with 4.0 Vicryl and the skin with 4-0 Prolene in simple interrupted and horizontal mattress suture technique. The guide wire for the cannulated screw was removed. Upon completion of the procedure, the incision was dressed with Adaptic, 4 x 4's, Kerlix, and Coban. The pneumatic ankle tourniquet was then deflated and a prompt hyperemic response noted to all digits of the foot. A surgical shoe was then applied. Next, a modified fishmouth incision was made overlying the interphalangeal joint of the hallux, disarticulating the distal phalanx that was lytic all the way to the base of the distal phalanx. The distal aspect of the digit excised and placed on the back table and later sent for gross and histopathology. The remaining tissue was healthy and bleeding. The cartilage to the distal phalanx head was normal and healthy. The wound site was then flushed with copious amounts of sterile saline. Next, the subcutaneous structures overlying the distal phalanx was reapproximated with 4-0 Vicryl. Next, the skin was reapproximated and coapted with 4-0 Prolene in simple interrupted suture fashion technique. The patient did very well with the procedure and the anesthesia. The patient was transferred to the recovery room with vital signs stable and vascular status intact to all remaining toes of the affected foot. Following a period of postoperative monitoring, the patient will be discharged home on the following written and oral postoperative instructions: 1. Keep the dressing clean, dry, and intact. Use a cast protector bag with showers. 2. The patient should use a surgical shoe for ambulation postoperatively. 3. The patient should be on bedrest with bathroom privileges and elevate the affected foot when at rest. 4. The patient to contact Dr. Hannon for all postop care and if any problems arise. 5. Tylenol will be taken for post op pain . She is neuropathic so minimal pain expected. Implants 3.5 Arthr
[2021-12-06 10:41] LABS: Glucose Point of Care 103 mg/dl (65-105)
[2021-12-06] MEDS: fentaNYL CITRATE INJ (*CRX) 100 MCG/2 ML VIAL 25 MCG IV PUSH ×5 (10:44→10:58)
== END 2021-12-06 13:53 | disposition home or self-care (01) ==
PROVIDERS: Anesthesiology; PCP Family Medicine; Visit Provider Podiatrist Foot & Ankle Surgery
PROC: (CPT 28825; principal; 2021-12-06 09:00)
PROC: (CPT 28750; 2021-12-06 09:00)
DX: E11.69 Type 2 diabetes mellitus with other specified complication (principal); M86.171 Other acute osteomyelitis, right ankle and foot; E11.621 Type 2 diabetes mellitus with foot ulcer; L97.529 Non-pressure chronic ulcer of other part of left foot with unspecified severity; I12.9 Hypertensive chronic kidney disease with stage 1 through stage 4 chronic kidney disease, or unspecified chronic kidney disease; E11.22 Type 2 diabetes mellitus with diabetic chronic kidney disease; N18.30 Chronic kidney disease, stage 3 unspecified; G47.33 Obstructive sleep apnea (adult) (pediatric); F41.8 Other specified anxiety disorders; E78.5 Hyperlipidemia, unspecified; K75.81 Nonalcoholic steatohepatitis (NASH); D64.9 Anemia, unspecified; I87.8 Other specified disorders of veins; E53.8 Deficiency of other specified B group vitamins; Z79.82 Long term (current) use of aspirin; Z79.84 Long term (current) use of oral hypoglycemic drugs; Z79.4 Long term (current) use of insulin; Z86.73 Personal history of transient ischemic attack (TIA), and cerebral infarction without residual deficits; Z85.528 Personal history of other malignant neoplasm of kidney; Z90.5 Acquired absence of kidney; Z87.891 Personal history of nicotine dependence
CPT/HCPCS: 28825; 28755; 36415; 82948; 85610; 85730; 88305; 88311; J0690; J2250; J2704; J3010; J7120

== ENCOUNTER 2021-12-27 11:31 | Outpatient (CLI) | payer MEDICARE, SELFPAY ==
[2021-12-27 11:48] LABS: Basophils Absolute Auto 0.07 K/mm3 (0.00-0.10); Basophils Percent Auto 0.9 % (0.0-1.0); Eosinophils Absolute Auto 0.46 K/mm3 (0.02-0.50); Eosinophils Percent Auto 5.6 % (1.0-6.0); Hematocrit 33.4 % (35.0-42.0); Hemoglobin 10.4 g/dL (11.7-13.8); Immature Granulocyte Absolute 0.03 K/mm3 (0.00-0.00); Immature Granulocyte Percent A 0.4 % (0.0-0.0); Lymphocytes Absolute Auto 2.36 K/mm3 (1.10-4.50); Lymphocytes Percent Auto 28.9 % (18.0-42.0); Mean Corpuscular HGB Conc 31.1 g/dL (32.0-36.0); Mean Corpuscular Hemoglobin 26.1 pg (27.0-31.0); Mean Corpuscular Volume 83.9 fL (78.0-102.0); Mean Platelet Volume 10.9 fl (9.2-11.8); Monocytes Absolute Auto 0.72 K/mm3 (0.10-0.90); Monocytes Percent Auto 8.8 % (2.0-11.0); Neutrophils Absolute Auto 4.5 K/mm3 (1.7-7.2); Neutrophils Percent Auto 55.4 % (50.0-70.0); Platelet Count Result 233 K/mm3 (150-420); Red Blood Count 3.98 M/mm3 (4.20-5.40); Red Cell Distribution Width 14.3 % (11.6-14.4); White Blood Count 8.2 K/mm3 (4.8-10.8)
== END 2021-12-27 11:32 | disposition home or self-care (01) ==
LOC: CHSLAB 11:34
PROVIDERS: PCP Family Medicine; Visit Provider Pain Medicine Pain Medicine
DX: M86.9 Osteomyelitis, unspecified (principal)
CPT/HCPCS: 36415; 85025

== ENCOUNTER 2022-04-03 20:29 | Emergency (ER) | payer MEDICARE, OTHER, SELFPAY ==
--- NOTE | ~2022-04-03 | XR_ITS ---
EXAM: XR foot RT min 3V DATE: 04/03/2022 21:17 HISTORY: diabetic ulcer @ 4th digit . COMPARISON: 11/30/2021. FINDINGS: Decreased mineralization. Status post amputation of the majority of the distal first phala nx with a small curvilinear portion of residual bone. Likely soft tissue swelling of multiple toes. S tatus post partial amputation of the second distal phalange. No definite osseous erosion, however the toes are held in flexion and overlap in the lateral view. IMPRESSION: Limited examination due to toe positioning and overlapping anatomy in the lateral view. R ecommend dedicated fourth toe radiographs with special attention to straightening but show in the lat eral view. Reviewed, dictated and finalized at location K. IMPRESSION: Limited examination due to toe positioning and overlapping anatomy in the lateral view. Recommend dedicated fourth toe radiographs with special at tention to straightening but show in the lateral view.
--- NOTE | 2022-04-03 20:39 | ED.SKABFB ---
HPI - Skin/Abscess/Foreign Bdy General Chief complaint: Extremity Injury, Lower Stated complaint: blister/wound toe Time Seen by Provider: 04/03/22 20:37 Source: patient Mode of arrival: ambulatory History of Present Illness HPI narrative: 71-year-old female with a history of hypertension, diabetes mellitus, CKD, diastolic dysfunction, anemia, MDP,chronic venous stasis dermatitis, chronic pain is status post pain pump, PVD Status post amputation of the distal big toes on both legs for osteomyelitis, chronic pain presents to the ER -- blisters/wound on the right middle toe. No drainage. This came up in the past 24 hours. -- Right leg erythema and swelling. No fever or chills. The patient does not remember having had any vascular procedures in the right lower extremities. MD complaint: abscess/boil Onset (ago): hour(s) ( Started 1 day ago) Tetanus up to date: yes Location: R foot ( right middle toe swelling and ulceration on plantar aspect of the distal toe. no pain) Severity: mild Associated symptoms: denies other symptoms Treatments prior to arrival: none Related Data Home Medications Medication Instructions Recorded Confirmed ferrous sulfate 325 mg (65 mg 325 mg PO BID 06/22/19 03/20/22 iron) tablet ascorbate calcium (vitamin C) 500 mg PO DAILY 11/17/20 03/20/22 bimatoprost 0.01 % eye drops 1 drp EACH EYE QPM 11/17/20 03/20/22 (Lumigan) insulin glargine 100 unit/mL (3 45 unit subcut BID 11/14/21 03/20/22 mL) subcutaneous pen (Lantus Solostar U-100 Insulin) Allergies Allergy/AdvReac Type Severity Reaction Status Date / Time lisinopril Allergy Severe TONGUE Verified 04/03/22 20:53 Swelling oxybutynin Allergy Severe PROBLEMS Verified 04/03/22 20:53 BREATHING fexofenadine Allergy Mild UPPER RESP Verified 04/03/22 20:53 INFECTION paroxetine Allergy Unknown NIGHT Verified 04/03/22 20:53 SWEATS bupropion AdvReac Unknown Nervousness Verified 04/03/22 20:53 tizanidine AdvReac Unknown blurred Verified 04/03/22 20:53 vision Review of Systems Review of Systems: All systems reviewed & are unremarkable except as noted in HPI and below Constitutional: Constitutional: Reports as per HPI and Reports no additional constitutional complaints Eyes: Eyes: Reports as per HPI and Reports no additional eye complaints ENT: Reports system reviewed and no additional complaints, except as documented and Reports as per HPI Cardiovascular: Cardiovascular: Reports as per HPI and Reports no additional cardiovascular complaints Respiratory: Respiratory: Reports as per HPI and Reports no additional respiratory complaints Gastrointestinal: Gastrointestinal: Reports as per HPI and Reports no additional gastrointestinal complaints Genitourinary: Genitourinary: Reports no additional female genitourinary complaints and Reports as per HPI Musculoskeletal: Musculoskeletal: Reports no additional musculoskeletal complaints, Reports as per HPI, Reports back pain and Reports arthralgias Comments: chronic back and joint pains for which she is on a pain pump. Integumentary/Breasts: Comments: Bilateral legs have chronic venous stasis changes right foot middle toe is swollen with an ulcer on the plantar aspect of the distal toe Neurologic: Reports system reviewed and no additional complaints, except as documented and Reports as per HPI Psychiatric: Psychiatric: Reports no additional psychiatric complaints and Reports as per HPI Endocrine: Endocrine: Reports no additional endocrine complaints and Reports as per HPI Hematologic/Lymphatic: Hematologic/Lymphatic: Reports no additional hematologic/lymphatic complaints and Reports as per HPI Allergic/Immunologic: Allergic/Immunologic: Reports no additional allergic/immunologic complaints and Reports as per HPI [facility] Past Medical History Medical History Anemia Anxiety Cerebrovascular accident
[2022-04-03 20:54] VITALS: BP 147/62; PULSE 88; RESP 18; TEMP 37.1; O2SAT 98
[2022-04-03 21:30] LABS: Basophils Absolute Auto 0.05 K/mm3 (0.00-0.10); Basophils Percent Auto 0.6 % (0.0-1.0); Eosinophils Absolute Auto 0.28 K/mm3 (0.02-0.50); Eosinophils Percent Auto 3.2 % (1.0-6.0); Hematocrit 29.2 % (35.0-42.0); Hemoglobin 9.3 g/dL (11.7-13.8); Immature Granulocyte Absolute 0.05 K/mm3 (0.00-0.00); Immature Granulocyte Percent A 0.6 % (0.0-0.0); Lymphocytes Absolute Auto 1.42 K/mm3 (1.10-4.50); Lymphocytes Percent Auto 16.2 % (18.0-42.0); Mean Corpuscular HGB Conc 31.8 g/dL (32.0-36.0); Mean Corpuscular Hemoglobin 26.3 pg (27.0-31.0); Mean Corpuscular Volume 82.7 fL (78.0-102.0); Mean Platelet Volume 10.3 fl (9.2-11.8); Monocytes Absolute Auto 0.75 K/mm3 (0.10-0.90); Monocytes Percent Auto 8.5 % (2.0-11.0); Neutrophils Absolute Auto 6.2 K/mm3 (1.7-7.2); Neutrophils Percent Auto 70.9 % (50.0-70.0); Platelet Count Result 243 K/mm3 (150-420); Red Blood Count 3.53 M/mm3 (4.20-5.40); Red Cell Distribution Width 13.4 % (11.6-14.4); White Blood Count 8.8 K/mm3 (4.8-10.8)
[2022-04-03 21:45] LABS: Partial Thromboplastin Time 29.3 SEC (23.90-30.70); Prothrombin Time 11.3 Seconds (9.50-12.10)
[2022-04-03 21:55] LABS: Alanine Aminotransferase 21 U/L (14-59); Albumin Level 2.9 g/dL (3.4-5.0); Alkaline Phosphatase 81 U/L (46-116); Anion Gap 5 mmol/L (8-16); Aspartate Amino Transferase 13 U/L (15-37); Bilirubin,Total 0.2 mg/dL (0.00-1.00); Blood Urea Nitrogen 23 mg/dL (7-18); Calcium 8.7 mg/dL (8.5-10.1); Carbon Dioxide 30 mmol/L (21-32); Chloride 100 mmol/L (98-108); Estimated CRCL calculation 45 ml/min; Estimated Glomerular Filt Rate 51; Glucose 114 mg/dL (70-99); NT Pro B Type Natriuretic Pept 243 pg/mL (0-125); Osmolality Calculated 284 mOsm/kg (285-295); Potassium 4.3 mmol/L (3.5-5.1); Sodium 135 mmol/L (136-145); Thyroid Stimulating Hormone 3.41 uIU/mL (0.36-3.74); Total Protein 6.9 g/dL (6.4-8.2); Troponin I 5.2 ng/L (0.00-60.4)
[2022-04-03 22:37] LABS: Add Urine Microscopic? NO; Appearance Urine Clear (Clear); Bilirubin Urine Negative (Negative); Blood Urine Negative (Negative); Color Urine Light Yellow (Yellow); Glucose Urine UA Negative (Negative); Ketones Urine Negative (Negative); Leukocyte Esterase Ur Negative (Negative); Nitrate Urine Negative (Negative); Protein Urine Negative (Negative); Specific Grav Ur <= 1.005 (1.010-1.020); Urobilinogen Urine 0.2 mg/dL (0.2-1.0); pH Urine 6.5 (5.0-8.0)
[2022-04-03] MEDS: SULFAMETHOXAZOLE/TRIMETHOPRIM 800/160 MG DS TABLET 1 TAB PO (22:58)
[2022-04-03] MEDS: AMOXICILLIN/CLAVULANATE K 875-125 MG TAB 1 TABLET PO (22:58)
--- NOTE | 2022-04-03 23:02 | PC.NURSE ---
non adherent pad and gauze4 bandage applied to third toe on right foot.
[2022-04-03 23:28] VITALS: BP 127/49; PULSE 81; RESP 18; TEMP 37.1; O2SAT 94
== END 2022-04-03 23:39 | disposition home or self-care (01) ==
PROVIDERS: Emergency Provider Internal Medicine Critical Care Medicine; PCP Family Medicine
DX: L03.031 Cellulitis of right toe (principal); E11.621 Type 2 diabetes mellitus with foot ulcer; D64.9 Anemia, unspecified; N18.9 Chronic kidney disease, unspecified; I10 Essential (primary) hypertension; E78.5 Hyperlipidemia, unspecified; Z79.4 Long term (current) use of insulin; Z87.891 Personal history of nicotine dependence
CPT/HCPCS: 36415; 73630; 80053; 81003; 83605; 83880; 84443; 84484; 85025; 85610; 85730; 87040; 99284; A9270

== ENCOUNTER 2022-05-08 14:36 | Outpatient (RCR) | payer MEDICARE, OTHER, SELFPAY ==
--- NOTE | 2022-05-08 15:14 | PTOPEVAL1 ---
Assessment and note entered by JT File, PT Evaluation Information Assessment Status Evaluation Diagnosis unsteady gait, frequent falls Onset 03/29/22 Subjective Information patient reports she needs to come to therapy to improve her strength. she reports she has had several falls. she reports her last fall was about 3-4 weeks ago. she reports she has had roughly 10 falls this year. she reports she had an electric scooter, but has since gotten rid of it. she reports she last fell while falling asleep in the chair (fell forward). Reported Pain Level Pain Score 0: Self Report Assessment PT Clinical Summary mrs. ca presents to skilled PT services for evaluation and treatment of generalized weakness, unsteady gait, and frequent falls. as of this date, she presents with a high fall risk per the tinett, and unsafe sit to stand transfers/TUG testing despite low score in both. she was educated this date in a HEP for improved LE strength, but would do well to continue skilled PT to address her balance, safety, strength, and to work on decreased fall risk. Plan of Care Interventions Gait Training,Neuro Re-education,Therapeutic Activities,Therapeutic Exercise PT Services Indicated Yes Treatment Frequency and 2x weekly for 8 visits Duration These treatments will address the objective and functional deficits as defined above. The patient will be advanced safely and appropriately in order for the patient to progress towards his/her prior level of function. Additional exercises will be introduced and as well as a comprehensive home exercise program upon discharge, if needed, ?to ensure carryover of functional gains achieved in the clinic. This treatment plan has been reviewed and agreement upon by the patient.
== END 2022-06-19 18:00 | disposition home or self-care (01) ==
LOC: CHSPT 14:36
PROVIDERS: Visit Provider Physician Assistant
DX: R29.898 Other symptoms and signs involving the musculoskeletal system (principal); R26.89 Other abnormalities of gait and mobility; W19.XXXA Unspecified fall, initial encounter
CPT/HCPCS: 97110; 97112; 97161; 97530

== ENCOUNTER 2022-07-14 11:44 | Outpatient (CLI) | payer MEDICARE, OTHER, SELFPAY ==
[2022-07-14 12:23] LABS: Anion Gap 5 mmol/L (8-16); Blood Urea Nitrogen 23 mg/dL (7-18); Calcium 8.6 mg/dL (8.5-10.1); Carbon Dioxide 34 mmol/L (21-32); Chloride 103 mmol/L (98-108); Estimated Glomerular Filt Rate 51; Glucose 135 mg/dL (70-99); Osmolality Calculated 299 mOsm/kg (285-295); Potassium 5.2 mmol/L (3.5-5.1); Sodium 142 mmol/L (136-145)
== END 2022-07-14 11:45 | disposition home or self-care (01) ==
LOC: CHSLAB 11:46
PROVIDERS: PCP Family Medicine; Visit Provider Internal Medicine Hematology & Oncology
DX: D50.8 Other iron deficiency anemias (principal)
CPT/HCPCS: 36415; 80048

== ENCOUNTER 2022-07-19 13:34 | Outpatient (CLI) | payer MEDICARE, SELFPAY ==
[2022-07-19 14:48] LABS: Ferritin 77 ng/mL (8-252); Iron 27 ug/dL (50-170); Percent Iron Saturation 11 % (12-57); Vitamin B12 1454 pg/mL (193-986)
[2022-07-23 10:18] LABS: Albumin 3.6 g/dL (3.8-4.8); Alpha 1 Globulin 0.3 g/dL (0.2-0.3); Alpha 2 Globulin 0.8 g/dL (0.5-0.9); Beta 1 Globulin 0.4 g/dL (0.4-0.6); Gamma Globulin 0.9 g/dL (0.8-1.7); Protein, Total 6.4 g/dL (6.1-8.1)
== END 2022-07-19 13:35 | disposition home or self-care (01) ==
LOC: CHSLAB 13:37
PROVIDERS: PCP Family Medicine; Visit Provider Internal Medicine Hematology & Oncology
DX: D50.8 Other iron deficiency anemias (principal)
CPT/HCPCS: 36415; 82607; 82728; 83540; 83550; 84155; 84165

== ENCOUNTER 2022-08-10 11:04 | Outpatient (CLI) | payer MEDICARE, SELFPAY ==
[2022-08-10 11:25] LABS: Basophils Absolute Auto 0.1 K/mm3 (0.0-0.1); Basophils Percent Auto 0.6 % (0.2-1.2); Eosinophils Absolute Auto 0.4 K/mm3 (0-0.3); Hematocrit 34.4 % (37.0-47.0); Hemoglobin 11.2 g/dL (12.0-15.0); Immature Granulocyte Absolute 0.04 K/mm3 (0.00-0.031); Immature Granulocyte Percent A 0.5 % (0-0.5); Lymphocytes Absolute Auto 1.68 K/mm3 (0.9-3.2); Lymphocytes Percent Auto 20.1 % (18.3-44.2); Mean Corpuscular HGB Conc 32.6 g/dl (32-36); Mean Corpuscular Hemoglobin 26.9 pg (26-34); Mean Corpuscular Volume 82.7 fl (80-100); Mean Platelet Volume 10.6 fl (7.4-10.4); Monocytes Absolute Auto 0.7 K/mm3 (0.1-0.6); Monocytes Percent Auto 8.1 % (2.6-8.5); Neutrophils Absolute Auto 5.5 K/mm3 (1.3-6.7); Neutrophils Percent Auto 65.7 % (45.5-73.1); Platelet Count Result 193 k/mm3 (150-375); Red Blood Count 4.16 M/mm3 (4.2-5.4); Red Cell Distribution Width 13.6 % (11.5-14.5); White Blood Count 8.4 K/mm3 (4.5-10.0)
== END 2022-08-10 11:05 | disposition home or self-care (01) ==
LOC: ANHLAB 11:05
PROVIDERS: Internal Medicine Hematology & Oncology; PCP Family Medicine; Visit Provider Internal Medicine Hematology & Oncology
DX: D50.8 Other iron deficiency anemias (principal)
CPT/HCPCS: 36415; 85025

== ENCOUNTER 2022-09-12 00:45 | Day surgery (SDC) | payer MEDICARE, OTHER, SELFPAY ==
[2022-08-28 13:28] VITALS: BMI 28.3
--- NOTE | 2022-09-11 13:40 | PM.HPGS ---
History of Present Illness History of Present Illness Consent: Risks, benefits, and alternatives have been discussed and questions answered. Patient agrees to proceed with procedure. Chief complaint: neoplasm screening Narrative: Ce Young is a 72 year old female referred for colon cancer screening. Review of Systems Review of Systems: All systems reviewed & are unremarkable except as noted in HPI and below PMFSH Past Medical History Medical History Anemia Anxiety Cerebrovascular accident Presenting with expressive aphasia which has essentially resolved. Chronic kidney disease, stage 3 Chronic low back pain Chronic venous stasis dermatitis of both lower extremities Diverticulosis Dyslipidemia Hypertension Insulin dependent type 2 diabetes mellitus Kidney malignant neoplasm Major depressive disorder, single episode, unspecified Nonalcoholic fatty liver disease Obstructive sleep apnea Intolerant to CPAP. Osteomyelitis of great toe of left foot Renal cell carcinoma Status post partial bilateral nephrectomy. Right femoral fracture ORIF Vitamin B12 deficiency Surgical History Surgical History History of arthroplasty of right shoulder History of bilateral salpingo-oophorectomy (12/2008) History of carpal tunnel release History of cataract extraction History of cholecystectomy History of elbow surgery Cubital tunnel release. History of laparotomy (12/2008) Diagnostic laparotomy with extensive adhesiolysis and bilateral salpingo-oophorectomy History of open reduction and internal fixation (ORIF) procedure Right hip fracture. History of partial nephrectomy (2007) Bilateral partial nephrectomy for renal cell carcinoma done at [facility]. History of tonsillectomy History of total abdominal hysterectomy History of total right hip arthroplasty Status post insertion of spinal cord stimulator With pain pump for chronic low back pain. Family History Family History Father Family history of heart disease in male family member before age 55 Family history of coronary artery disease Cerebrovascular accident Sibling Family history of coronary artery disease Mother Family history of obesity Grandparent Diabetes mellitus Grandparent Family history of glaucoma Other Depression Family history of cardiovascular disease Hypertension Social History Social History Social History: . Retired. Daughter and son live with her in [place]. Smokes 1 pack of the day for 44 quit in 2004. Surrogate decision maker: Children or sister. CODE STATUS: Full code. Smoking packs per day: 1 Smoking cigarettes per day: 20.0 Years smoked: 50 Smoking pack-years: 50.00 Smoking status: Former smoker Tobacco type: cigarettes Second hand tobacco smoke exposure: No Additional smoking assessment comments: QUIT 2004 Alcohol intake: never Substance use: never Substance use type: does not use Living arrangements: with family Additional living arrangements comments: [facility] Occupation/Education: retired Spiritual care concerns: No Meds Home Medications and Allergies Home Medications Medication Instructions Recorded Confirmed Type ferrous sulfate 325 mg (65 mg 325 mg PO BID 06/22/19 08/28/22 History iron) tablet loratadine 10 mg tablet 10 mg PO DAILY #90 tabs 09/01/21 08/28/22 Rx insulin glargine 100 unit/mL (3 45 unit subcut BID 11/14/21 08/28/22 History mL) subcutaneous pen (Lantus Solostar U-100 Insulin) metoprolol succinate 25 mg 25 mg PO DAILY #90 tabs 12/29/21 08/28/22 Rx tablet,extended release 24 hr (Toprol XL) pantoprazole 40 mg tablet,delayed 40 mg PO QAM #90 tabs 12/29/21 08/28/22 Rx release (Protonix) hydrochlorothiazide
[2022-09-12 06:50] VITALS: BP 153/49; PULSE 70; RESP 20; TEMP 36.6; O2SAT 100; BMI 28.3
[2022-09-12] MEDS: LACTATED RINGERS 1,000 ML 150 ML IV CONT (07:11)
[2022-09-12 07:20] LABS: Glucose Point of Care 114 mg/dl (65-105)
--- NOTE | 2022-09-12 07:52 | WPDANESEPPF ---
Anes - Initial Pre Proc Eval Procedure: Operation Date: 09/12/22 08:00 Proposed Procedures p Screening Colonoscopy - Cj Coppola MD Date/Time: 09/12/22 07:52 Surgeon: Cj Coppola MD Pre Op Diagnosis: neoplasm screening Patient Data Age: 72 Gender: F Height: 1.68 m Weight: 79.5 kg Last Vital Signs Temp 98 F 09/12/22 06:50 Pulse 70 09/12/22 06:50 Resp 20 09/12/22 06:50 BP 153/49 H 09/12/22 06:50 Pulse Ox 100 09/12/22 06:50 O2 Del Method Room Air 09/12/22 06:50 Allergies Allergy/AdvReac Type Severity Reaction Status Date / Time lisinopril Allergy Severe TONGUE Verified 08/28/22 13:14 Swelling oxybutynin Allergy Severe PROBLEMS Verified 08/28/22 13:14 BREATHING fexofenadine Allergy Mild UPPER RESP Verified 08/28/22 13:14 INFECTION paroxetine Allergy Unknown NIGHT Verified 08/28/22 13:14 SWEATS bupropion AdvReac Unknown Nervousness Verified 08/28/22 13:14 tizanidine AdvReac Unknown blurred Verified 08/28/22 13:14 vision Home Medications Medication Instructions Recorded Confirmed Type ferrous sulfate 325 mg (65 mg 325 mg PO BID 06/22/19 08/28/22 History iron) tablet loratadine 10 mg tablet 10 mg PO DAILY #90 tabs 09/01/21 08/28/22 Rx insulin glargine 100 unit/mL (3 45 unit subcut BID 11/14/21 08/28/22 History mL) subcutaneous pen (Lantus Solostar U-100 Insulin) metoprolol succinate 25 mg 25 mg PO DAILY #90 tabs 12/29/21 08/28/22 Rx tablet,extended release 24 hr (Toprol XL) pantoprazole 40 mg tablet,delayed 40 mg PO QAM #90 tabs 12/29/21 08/28/22 Rx release (Protonix) hydrochlorothiazide 25 mg tablet 25 mg PO DAILY #90 tabs 03/09/22 08/28/22 Rx mirabegron 50 mg tablet,extended 50 mg PO DAILY #90 tabs 03/09/22 08/28/22 Rx release 24 hr (Myrbetriq) valsartan 40 mg tablet (Diovan) 40 mg PO BID #180 tabs 03/09/22 08/28/22 Rx venlafaxine 75 mg capsule,extended 75 mg PO .COMPLEX #270 caps 03/14/22 08/28/22 Rx release 24 hr (Effexor XR) atorvastatin 20 mg tablet 20 mg PO HS #90 tabs 06/12/22 08/28/22 Rx metformin 500 mg tablet 1,000 mg PO BID #360 tabs 06/12/22 08/28/22 Rx omega-3 acid ethyl esters 1 gram 1 cap PO BID #180 caps 06/12/22 08/28/22 Rx capsule (Lovaza) ascorbic acid (vitamin C) 1,000 mg 1 g PO DAILY 08/28/22 08/28/22 History capsule aspirin 81 mg tablet,delayed 81 mg PO BID 08/28/22 08/28/22 History release calcium carbonate-vitamin D3 600 1 tablet PO DAILY 08/28/22 08/28/22 History mg-125 unit tablet docusate sodium 100 mg tablet 100 mg PO BID PRN Constipation 08/28/22 08/28/22 History latanoprost 0.005 % eye drops 1 drp EACH EYE QAM 08/28/22 08/28/22 History mecobalamin (vitamin B12) 1,000 1,000 mcg PO DAILY 08/28/22 08/28/22 History mcg chewable tablet Laboratory Tests 09/12/22 07:18 POC Capillary Glucose 114 mg/dl H mg/dl (65-105) Patient hx anesthesia problems: none Family hx anesthesia problems: none Results Review: All pre-operative results and documents have been reviewed as part of the pre-operative evaluation. [facility] Past Medical History Medical History Anemia Anxiety Cerebrovascular accident Presenting with expressive aphasia which has essentially resolved. Chronic kidney disease, stage 3 Chronic low back pain Chronic venous stasis dermatitis of both lower extremities Diverticulosis Dyslipidemia Hypertension Insulin dependent type 2 diabetes mellitus Kidney malignant neoplasm Major depressive disorder, single episode, unspecified Nonalcoholic fatty liver disease Obstructive sleep apnea Intolerant to CPAP. Osteomyelitis of great toe of left foot Renal cell carcinoma Status post partial bilateral nephrectomy. Right femoral fracture ORIF Vitamin B12 deficiency Surgical History Surgical History History of arthroplasty of right shoulder History
[2022-09-12 08:15] VITALS: BP 110/51; PULSE 71; RESP 15; O2SAT 100
[2022-09-12 08:25] VITALS: BP 134/54; PULSE 68; RESP 18; O2SAT 98
[2022-09-12 08:35] VITALS: BP 136/65; PULSE 70; RESP 19; O2SAT 100
[2022-09-12 08:51] LABS: Glucose Point of Care 99 mg/dl (65-105)
== END 2022-09-12 08:53 | disposition home or self-care (01) ==
PROVIDERS: PCP Family Medicine; Visit Provider Internal Medicine Gastroenterology
PROC: 0DJD8ZZ Inspection of Lower Intestinal Tract, Via Natural or Artificial Opening Endoscopic (ICD-10-PCS; CPT 45378; principal; 2022-09-12 08:00)
DX: Z12.11 Encounter for screening for malignant neoplasm of colon (principal); K57.30 Diverticulosis of large intestine without perforation or abscess without bleeding; I12.9 Hypertensive chronic kidney disease with stage 1 through stage 4 chronic kidney disease, or unspecified chronic kidney disease; E11.22 Type 2 diabetes mellitus with diabetic chronic kidney disease; N18.30 Chronic kidney disease, stage 3 unspecified; D64.9 Anemia, unspecified; E78.5 Hyperlipidemia, unspecified; K75.81 Nonalcoholic steatohepatitis (NASH); E53.8 Deficiency of other specified B group vitamins; F41.9 Anxiety disorder, unspecified; F32.A Depression, unspecified; I87.8 Other specified disorders of veins; Z85.528 Personal history of other malignant neoplasm of kidney; G47.33 Obstructive sleep apnea (adult) (pediatric); Z90.5 Acquired absence of kidney; Z86.73 Personal history of transient ischemic attack (TIA), and cerebral infarction without residual deficits; Z87.891 Personal history of nicotine dependence; Z79.84 Long term (current) use of oral hypoglycemic drugs; Z79.82 Long term (current) use of aspirin; E66.9 Obesity, unspecified; Z68.28 Body mass index [BMI] 28.0-28.9, adult
CPT/HCPCS: G0121; 82948; J2704; J7120

== ENCOUNTER 2022-09-14 09:01 | Outpatient (CLI) | payer MEDICARE, OTHER, SELFPAY ==
[2022-09-14 09:20] LABS: Hemoglobin 10.8 g/dL (11.7-13.8); Mean Corpuscular HGB Conc 32.7 g/dL (32.0-36.0); Mean Corpuscular Hemoglobin 27.3 pg (27.0-31.0); Mean Corpuscular Volume 83.3 fL (78.0-102.0); Mean Platelet Volume 10.7 fl (9.2-11.8); Platelet Count Result 216 K/mm3 (150-420); Red Blood Count 3.96 M/mm3 (4.20-5.40); Red Cell Distribution Width 13.5 % (11.6-14.4)
[2022-09-14 09:27] LABS: Add Urine Microscopic? YES; Appearance Urine Clear (Clear); Bilirubin Urine Negative (Negative); Blood Urine Negative (Negative); Color Urine Yellow (Yellow); Glucose Urine UA Negative (Negative); Ketones Urine Trace (Negative); Leukocyte Esterase Ur Trace (Negative); Nitrate Urine Negative (Negative); Protein Urine Negative (Negative); Specific Grav Ur 1.025 (1.010-1.020); Urobilinogen Urine 0.2 mg/dL (0.2-1.0); pH Urine 5.5 (5.0-8.0)
[2022-09-14 09:35] LABS: RBC Urine 0-2 /hpf (0-2); Squamous Epithelial Cell Urine Moderate /hpf (Few)
[2022-09-14 09:36] LABS: Bacteria Urine Trace /hpf
[2022-09-14 09:54] LABS: Hemoglobin A1C 7.8 % (<5.7)
[2022-09-14 10:01] LABS: Alanine Aminotransferase 30 U/L (14-59); Albumin Level 3.4 g/dL (3.4-5.0); Alkaline Phosphatase 69 U/L (46-116); Anion Gap 6 mmol/L (8-16); Aspartate Amino Transferase 16 U/L (15-37); Bilirubin,Total 0.4 mg/dL (0.00-1.00); Blood Urea Nitrogen 21 mg/dL (7-18); Calcium 8.8 mg/dL (8.5-10.1); Carbon Dioxide 32 mmol/L (21-32); Chloride 102 mmol/L (98-108); Cholesterol 124 mg/dL (0-200); Estimated Glomerular Filt Rate 43; Glucose 77 mg/dL (70-99); HDL Direct 37 mg/dL (40-60); LDL Cholesterol Calculated 62 mg/dL (<130); Osmolality Calculated 292 mOsm/kg (285-295); Potassium 4.5 mmol/L (3.5-5.1); Sodium 140 mmol/L (136-145); Thyroid Stimulating Hormone 4.67 uIU/mL (0.36-3.74); Total Protein 6.5 g/dL (6.4-8.2); Triglycerides 126 mg/dL (0-150)
== END 2022-09-14 09:02 | disposition home or self-care (01) ==
PROVIDERS: PCP Physician Assistant; Visit Provider Physician Assistant
DX: L97.509 Non-pressure chronic ulcer of other part of unspecified foot with unspecified severity (principal); E11.621 Type 2 diabetes mellitus with foot ulcer; E11.21 Type 2 diabetes mellitus with diabetic nephropathy; I10 Essential (primary) hypertension; Z79.4 Long term (current) use of insulin; I12.9 Hypertensive chronic kidney disease with stage 1 through stage 4 chronic kidney disease, or unspecified chronic kidney disease; E78.5 Hyperlipidemia, unspecified; E11.29 Type 2 diabetes mellitus with other diabetic kidney complication; E11.65 Type 2 diabetes mellitus with hyperglycemia; N18.30 Chronic kidney disease, stage 3 unspecified
CPT/HCPCS: 36415; 80053; 80061; 81001; 83036; 84443; 85027

== ENCOUNTER 2022-11-08 13:50 | Outpatient (CLI) | payer MEDICARE, OTHER, SELFPAY ==
--- NOTE | ~2022-11-08 | US_ITS ---
EXAMINATION: US carotid duplex BI DATE: 11/08/2022 14:33 INDICATION: Total left internal carotid artery occlusion; follow-up of right carotid stenosis TECHNIQUE: Grayscale, color Doppler, and pulsed Doppler images of the cervical carotid arteries were obtained. The degree of vessel stenosis is placed in one of the following categories: normal, <50%, 5 0-69%, >=70% but less than near-occlusion, near-occlusion, or total occlusion. Note that percent sten osis relative to normal distal artery lumen diameter is indirectly measured from velocity measurement s as described by Jeff, et al. Radiology 2003; [id number]. COMPARISON: None. FINDINGS: RIGHT: The right common carotid artery (CCA) peak systolic velocity (PSV) is 105 cm/s. The right internal ca rotid artery (ICA) PSV is 155 cm/s. The right ICA end-diastolic velocity (EDV) is 42 cm/s. The right ICA/CCA PSV ratio is 1.48. Grayscale and color Doppler images yield an estimate of less than 50% diam eter reduction from plaque in the ICA. The external carotid artery (ECA) PSV is 263. There is antegra de flow in the right vertebral artery. LEFT: The left CCA PSV is 22 cm/s. The left ICA PSV is 0 cm/s. The left ICA EDV is 0 cm/s. The left ICA/CCA PSV ratio is 0. Grayscale and color Doppler images yield an estimate of 100% diameter reduction from plaque in the ICA. The ECA PSV is 114 cm/s retrograde. There is antegrade flow in the left vertebral artery. IMPRESSION: 1. Less than 50% stenosis in the right internal carotid artery. 2. Chronic occlusion of the left internal carotid artery. Reviewed, dictated and finalized at Location [facility]. Reviewed, dictated and finalized at location L.
== END 2022-11-08 13:51 | disposition home or self-care (01) ==
LOC: CHSIMG 13:51
PROVIDERS: PCP Family Medicine; Visit Provider Internal Medicine Cardiovascular Disease
DX: I65.23 Occlusion and stenosis of bilateral carotid arteries (principal)
CPT/HCPCS: 93880

== ENCOUNTER 2022-11-10 02:20 | Emergency (ER) | payer MEDICARE, OTHER, SELFPAY ==
--- NOTE | ~2022-11-10 | CT_ITS ---
EXAMINATION: CT brain wo con DATE: 11/10/2022 03:03 INDICATION: Head injury. Confusion. TECHNIQUE: Computed tomography (CT) of the head was performed without intravenous contrast. The mA wa s adjusted according to patient size. Iterative reconstruction technique was employed. The dose-lengt h product was 605.33 mGy-cm. COMPARISON: Head CT 10/05/2021 FINDINGS: There is an old infarct in left temporal parietal region. There is an old infarct in left f rontal lobe. There is no intracranial hemorrhage, acute infarction, or abnormal intracranial mass les ion. The ventricles are normal in size. There is mild mucosal thickening in the paranasal sinuses. Th ere are likely changes of ocular lens replacement surgeries. There is a small right mastoid effusion. There is a right anterolateral scalp hematoma. IMPRESSION: 1. Old infarcts involving the left frontal lobe and left temporal parietal region. Reviewed, dictated and finalized at location A. IMPRESSION: 1. Old infarcts involving the left frontal lobe and left temporal parietal héctor on.
--- NOTE | ~2022-11-10 | XR_ITS ---
EXAMINATION: XR humerus RT DATE: 11/10/2022 03:20 INDICATION: Right upper arm pain. Fall. TECHNIQUE: 2 views of right humerus on 3 radiographs were obtained. COMPARISON: Right elbow radiographs 02/10/2019 FINDINGS: Bone alignment is normal. No fracture. Glenohumeral joint is not well profiled. There are l ikely changes of distal clavicle resection. There are enthesophytes at medial and lateral humeral epi condyles. There is chronic heterotopic ossification distal to lateral humeral epicondyle. IMPRESSION: 1. No fracture. Reviewed, dictated and finalized at location A. IMPRESSION: 1. No fracture.
[2022-11-10 02:28] VITALS: BP 172/83; PULSE 94; RESP 18; TEMP 36.6; O2SAT 96
--- NOTE | 2022-11-10 03:33 | ED.FALL ---
HPI - Fall General Chief Complaint: Fall Stated Complaint: Fall Source: patient and family Mode of arrival: ambulatory Limitations: dementia History of Present Illness MD complaint: fall Onset (ago): minute(s) Fall from: standing Fall witnessed: no Place fall occurred: home Loss of consciousness: none Prolonged down time: no Symptoms prior to fall: none Context: tripped/slipped Location of injury: head Location of injury - extremities: Right: arm Related Data Home Medications Medication Instructions Recorded Confirmed ferrous sulfate 325 mg (65 mg 325 mg PO BID 06/22/19 11/01/22 iron) tablet insulin glargine 100 unit/mL (3 45 unit subcut BID 11/14/21 11/01/22 mL) subcutaneous pen (Lantus Solostar U-100 Insulin) ascorbic acid (vitamin C) 1,000 mg 1 g PO DAILY 08/28/22 11/01/22 capsule aspirin 81 mg tablet,delayed 81 mg PO BID 08/28/22 11/01/22 release calcium carbonate-vitamin D3 600 1 tablet PO DAILY 08/28/22 11/01/22 mg-125 unit tablet docusate sodium 100 mg tablet 100 mg PO BID PRN Constipation 08/28/22 11/01/22 latanoprost 0.005 % eye drops 1 drp EACH EYE QAM 08/28/22 11/01/22 mecobalamin (vitamin B12) 1,000 1,000 mcg PO DAILY 08/28/22 11/01/22 mcg chewable tablet Allergies Allergy/AdvReac Type Severity Reaction Status Date / Time lisinopril Allergy Severe TONGUE Verified 11/10/22 02:31 Swelling oxybutynin Allergy Severe PROBLEMS Verified 11/10/22 02:31 BREATHING fexofenadine Allergy Mild UPPER RESP Verified 11/10/22 02:31 INFECTION paroxetine Allergy Unknown NIGHT Verified 11/10/22 02:31 SWEATS bupropion AdvReac Unknown Nervousness Verified 11/10/22 02:31 tizanidine AdvReac Unknown blurred Verified 11/10/22 02:31 vision Review of Systems Review of Systems: ROS unobtainable: Yes unobtainable due to mental status PMFSH Past Medical History Medical History Anemia Anxiety Cerebrovascular accident Presenting with expressive aphasia which has essentially resolved. Chronic kidney disease, stage 3 Chronic low back pain Chronic venous stasis dermatitis of both lower extremities Diverticulosis Dyslipidemia Hypertension Insulin dependent type 2 diabetes mellitus Kidney malignant neoplasm Major depressive disorder, single episode, unspecified Nonalcoholic fatty liver disease Obstructive sleep apnea Intolerant to CPAP. Osteomyelitis of great toe of left foot Renal cell carcinoma Status post partial bilateral nephrectomy. Right femoral fracture ORIF Vitamin B12 deficiency Surgical History Surgical History History of arthroplasty of right shoulder History of bilateral salpingo-oophorectomy (12/2008) History of carpal tunnel release History of cataract extraction History of cholecystectomy History of elbow surgery Cubital tunnel release. History of laparotomy (12/2008) Diagnostic laparotomy with extensive adhesiolysis and bilateral salpingo-oophorectomy History of open reduction and internal fixation (ORIF) procedure Right hip fracture. History of partial nephrectomy (2007) Bilateral partial nephrectomy for renal cell carcinoma done at [place]. History of tonsillectomy History of total abdominal hysterectomy History of total right hip arthroplasty Status post insertion of spinal cord stimulator With pain pump for chronic low back pain. Family History Family History Father Family history of heart disease in male family member before age 55 Family history of coronary artery disease Cerebrovascular accident Sibling Family history of coronary artery disease Mother Family history of obesity Grandparent Diabetes mellitus Grandparent Family history of glaucoma Other Depression Family history of cardiovascular disease Hypertension Social History Social History (Reviewed
[2022-11-10] MEDS: ONDANSETRON HCL ODT 4 MG TABLET PO (03:34)
[2022-11-10 03:59] VITALS: PULSE 88; RESP 18; O2SAT 94
[2022-12-05 13:37] LABS: Glucose Point of Care 134 mg/dl (65-105)
== END 2022-11-10 04:01 | disposition home or self-care (01) ==
PROVIDERS: Emergency Provider Family Medicine; PCP Family Medicine
DX: S09.90XA Unspecified injury of head, initial encounter (principal); S40.021A Contusion of right upper arm, initial encounter; I69.320 Aphasia following cerebral infarction; I12.9 Hypertensive chronic kidney disease with stage 1 through stage 4 chronic kidney disease, or unspecified chronic kidney disease; N18.30 Chronic kidney disease, stage 3 unspecified; E11.22 Type 2 diabetes mellitus with diabetic chronic kidney disease; E53.8 Deficiency of other specified B group vitamins; G47.33 Obstructive sleep apnea (adult) (pediatric); K76.0 Fatty (change of) liver, not elsewhere classified; F32.A Depression, unspecified; F41.9 Anxiety disorder, unspecified; Z90.5 Acquired absence of kidney; Z79.82 Long term (current) use of aspirin; Z85.528 Personal history of other malignant neoplasm of kidney; Z79.4 Long term (current) use of insulin; Z96.651 Presence of right artificial knee joint; W19.XXXA Unspecified fall, initial encounter
CPT/HCPCS: 70450; 73060; 82948; 99284; A9270

== ENCOUNTER 2022-11-11 17:41 | Emergency (ER) | payer MEDICARE, OTHER, SELFPAY ==
--- NOTE | ~2022-11-11 | CT_ITS ---
EXAMINATION: CT facial bones wo con DATE: 11/11/2022 19:42 INDICATION: FALL SATURDAY. RIGHT SIDE FACIAL SWELLING . TECHNIQUE: Computed tomography (CT) of the facial bones and maxillofacial region was performed withou t intravenous contrast. Automated exposure control and iterative reconstruction technique were employ ed. The dose-length product was 363.78 mGy-cm. COMPARISON: None. FINDINGS: Soft Tissues: Right frontal and right periorbital soft tissue hematoma/swelling. Facial bones: No acute fracture. No lytic or blastic process. Eyes: The globes are intact. The soft tissue planes of the orbits are maintained. Bilateral lens re placements. Paranasal Sinuses: Right mastoid effusion. Otherwise, the visualized aerated spaces are clear. Foreign Bodies: No radiopaque foreign bodies. Other Findings: None. IMPRESSION: No evidence of acute facial bone fracture. Reviewed, dictated and finalized at location K.
--- NOTE | ~2022-11-11 | CT_ITS ---
EXAMINATION: CT abdomen pelvis w con DATE: 11/11/2022 19:42 INDICATION: abdominal pain, nausea, vomiting, fall TECHNIQUE: Computed tomography (CT) of the abdomen and pelvis was performed with 100 mL Omnipaque-350 intravenous contrast. Automated exposure control and iterative reconstruction technique were employe d. The dose-length product was 774.89 mGy-cm. COMPARISON: 02/28/2014. FINDINGS: Lower thorax: Left lower lobe granuloma with adjacent air cyst. Minimal dependent right lung atelecta sis. Coronary artery and aortic valve calcification. Liver: Granulomatous calcification. Tiny right lobe hypodensity, too small to characterize. Biliary/Gallbladder: Gallbladder is absent. No bile duct dilation. Pancreas: Pancreatic atrophy. Spleen: Granulomatous calcifications. Adrenals:No mass. Kidneys: Status post partial right nephrectomy. Left inferior renal scarring. Multiple bilateral hypo densities, too small to characterize but most likely represent cysts. GI tract: Moderate distal esophageal and gastric wall edema. No small or large bowel dilation. Normal appendix. Mesentery/Peritoneum: No ascites, mass, or free air. Retroperitoneum: No mass. Atherosclerotic abdominal aortic and/or arterial calcifications. Pelvis: Surgically absent uterus. Soft Tissues: Right posterior stimulator pack, leads terminating in the lower thoracic spine. Right l ateral drug pump, catheter terminating in the lower thoracic spine. Uncomplicated fat-containing left lateral abdominal wall hernia Bones: No acute osseous finding. Uncomplicated appearing right proximal femoral fixation hardware. IMPRESSION: No acute traumatic finding in the abdomen or pelvis. Esophagitis/gastritis. Reviewed, dictated and finalized at location K.
--- NOTE | ~2022-11-11 | CT_ITS ---
EXAMINATION: CT brain wo con DATE: 11/11/2022 19:41 INDICATION: fall. . TECHNIQUE: Computed tomography (CT) of the head was performed without intravenous contrast. The mA wa s adjusted according to patient size. Iterative reconstruction technique was employed. The dose-lengt h product was 605.33 mGy-cm. COMPARISON: 11/10/2022. FINDINGS: No acute intracranial hemorrhage or extra-axial fluid collection. No hydrocephalus, mass, or herniation. No acute ischemic infarct. Unremarkable dural venous sinus attenuation. No acute osseous abnormality. Large right frontal scalp hematoma. Right orbital soft tissue swelling. Right mastoid effusion, the remaining aerated spaces are clear. Mild atrophy and chronic white matter change. Atherosclerotic intracranial calcification. Bilateral l ens replacements. Left frontal and left temporoparietal encephalomalacia. IMPRESSION: No acute intracranial process. Reviewed, dictated and finalized at location K.
[2022-11-11 17:48] LABS: Glucose Point of Care 276 mg/dl (65-105)
[2022-11-11 17:55] VITALS: BP 195/78; PULSE 110; RESP 18; TEMP 36.4; O2SAT 97
--- NOTE | 2022-11-11 18:08 | PC.NURSE ---
Pt's right side of face is black and blue and still swollen from her fall this past Saturday, also bruising observed to her right arm, pt states she fell over a fan per family but she does not remember it herself. Pt is A & O X 4, no neuro deficits observed.
[2022-11-11] MEDS: SODIUM CHLORIDE 0.9% IV 1,000 ML 150 ML IV CONT (18:24)
[2022-11-11] MEDS: ONDANSETRON INJ 4 MG/2 ML VIAL IV PUSH (18:25)
--- NOTE | 2022-11-11 18:29 | ED.FALL ---
HPI - Fall General Chief Complaint: Abdominal Pain Stated Complaint: stomach ache Time Seen by Provider: 11/11/22 17:45 Source: patient and family (son) Mode of arrival: ambulatory Limitations: no limitations History of Present Illness HPI Narrative: 72 year old female returns to the Emergency Department with son. Both are poor historians. Patient was seen here 11/10/22 in early hours after falling at home. Unsure why she fell. Patient states her daughter states it was her fault because she placed something in way where patient would have fallen over it, but patient does not remember. She does not know if she had symptoms prior to falling. She states she must have had loss of consciousness, because she does not remember. She has obvious trauma to face and head on arrival and complains of some headache and facial pain around right eye. Son states she is not eating properly and hardly at all. Patient has had some vomiting and not taking her medications appropriately. She states she does have some left sided abdominal pain. Patient is on pain pump (dilaudid) for chronic pain and sees Pain Management. Patient has history of IDDM, ITP, HTN, Hyperlipidemia, CVA, CKD - stage III, renal cell carcinoma, anemia, depression, sleep apnea, osteomyelitis. MD complaint: fall Onset (ago): day(s) (2) Fall from: standing Fall witnessed: yes, by family Place fall occurred: home Loss of consciousness: unsure Symptoms prior to fall: none Location of injury: head, face, abdomen and other (right arm) Related Data Home Medications Medication Instructions Recorded Confirmed ferrous sulfate 325 mg (65 mg 325 mg PO BID 06/22/19 11/11/22 iron) tablet insulin glargine 100 unit/mL (3 45 unit subcut BID 11/14/21 11/11/22 mL) subcutaneous pen (Lantus Solostar U-100 Insulin) ascorbic acid (vitamin C) 1,000 mg 1 g PO DAILY 08/28/22 11/11/22 capsule aspirin 81 mg tablet,delayed 81 mg PO BID 08/28/22 11/11/22 release calcium carbonate-vitamin D3 600 1 tablet PO DAILY 08/28/22 11/11/22 mg-125 unit tablet docusate sodium 100 mg tablet 100 mg PO BID PRN Constipation 08/28/22 11/11/22 latanoprost 0.005 % eye drops 1 drp EACH EYE QAM 08/28/22 11/11/22 mecobalamin (vitamin B12) 1,000 1,000 mcg PO DAILY 08/28/22 11/11/22 mcg chewable tablet Allergies Allergy/AdvReac Type Severity Reaction Status Date / Time lisinopril Allergy Severe TONGUE Verified 11/11/22 18:04 Swelling oxybutynin Allergy Severe PROBLEMS Verified 11/11/22 18:04 BREATHING fexofenadine Allergy Mild UPPER RESP Verified 11/11/22 18:04 INFECTION paroxetine Allergy Unknown NIGHT Verified 11/11/22 18:04 SWEATS bupropion AdvReac Unknown Nervousness Verified 11/11/22 18:04 tizanidine AdvReac Unknown blurred Verified 11/11/22 18:04 vision Review of Systems Constitutional: Constitutional: Reports as per HPI and Reports no additional constitutional complaints Eyes: Eyes: Reports as per HPI, Reports no additional eye complaints and Denies change in vision ENT: Reports system reviewed and no additional complaints, except as documented and Reports as per HPI Cardiovascular: Cardiovascular: Reports as per HPI, Reports no additional cardiovascular complaints and Denies chest pain Respiratory: Respiratory: Reports as per HPI, Reports no additional respiratory complaints and Denies dyspnea Gastrointestinal: Gastrointestinal: Reports as per HPI, Reports no additional gastrointestinal complaints, Reports abdominal pain, Reports nausea and Reports vomiting Genitourinary: Genitourinary: Reports no additional female genitourinary complaints and Reports as per HPI Musculoskeletal: Musculoskeletal: Reports no additional musculoskeletal complaints and Reports as per HPI Comments: right arm pain Integumentary/Breasts: Skin/Breast: Reports system reviewed and no additional complaints, except as docu and Reports as per HPI Neurologic: Reports system reviewed and no
[2022-11-11 18:49] LABS: Basophils Absolute Auto 0.02 K/mm3 (0.00-0.10); Basophils Percent Auto 0.2 % (0.0-1.0); Eosinophils Absolute Auto 0.02 K/mm3 (0.02-0.50); Eosinophils Percent Auto 0.2 % (1.0-6.0); Hematocrit 37.3 % (35.0-42.0); Hemoglobin 12.4 g/dL (11.7-13.8); Immature Granulocyte Absolute 0.06 K/mm3 (0.00-0.00); Immature Granulocyte Percent A 0.5 % (0.0-0.0); Lymphocytes Absolute Auto 1.07 K/mm3 (1.10-4.50); Lymphocytes Percent Auto 8.6 % (18.0-42.0); Mean Corpuscular HGB Conc 33.2 g/dL (32.0-36.0); Mean Corpuscular Hemoglobin 27.6 pg (27.0-31.0); Mean Corpuscular Volume 82.9 fL (78.0-102.0); Mean Platelet Volume 10.8 fl (9.2-11.8); Monocytes Absolute Auto 0.54 K/mm3 (0.10-0.90); Monocytes Percent Auto 4.3 % (2.0-11.0); Neutrophils Absolute Auto 10.8 K/mm3 (1.7-7.2); Neutrophils Percent Auto 86.2 % (50.0-70.0); Platelet Count Result 230 K/mm3 (150-420); Red Cell Distribution Width 13.4 % (11.6-14.4); White Blood Count 12.5 K/mm3 (4.8-10.8)
--- NOTE | 2022-11-11 18:55 | PC.NURSE ---
Change of shift report given to
[2022-11-11 19:02] LABS: Alanine Aminotransferase 35 U/L (14-59); Albumin Level 3.7 g/dL (3.4-5.0); Alkaline Phosphatase 73 U/L (46-116); Amylase 64 U/L (25-115); Anion Gap 10 mmol/L (8-16); Aspartate Amino Transferase 21 U/L (15-37); Bilirubin,Total 0.7 mg/dL (0.00-1.00); Blood Urea Nitrogen 23 mg/dL (7-18); Carbon Dioxide 30 mmol/L (21-32); Chloride 97 mmol/L (98-108); Estimated CRCL calculation 53 ml/min; Estimated Glomerular Filt Rate > 60; Glucose 309 mg/dL (70-99); Lipase 17 U/L (16-77); Osmolality Calculated 299 mOsm/kg (285-295); Potassium 4.6 mmol/L (3.5-5.1); Sodium 137 mmol/L (136-145); Total Protein 7.8 g/dL (6.4-8.2)
[2022-11-11 19:07] LABS: Lactic Acid Reflex 1.2 mmol/L (0.4-2.0)
[2022-11-11 19:50] LABS: Appearance Urine Clear (Clear); Bilirubin Urine Negative (Negative); Blood Urine Trace-Intact (Negative); Color Urine Light Yellow (Yellow); Glucose Urine UA 3+ (Negative); Ketones Urine 1+ (Negative); Leukocyte Esterase Ur Negative LEU/UL (Negative); Nitrate Urine Negative (Negative); Protein Urine 1+ (Negative); Specific Grav Ur 1.015 (1.010-1.020); Urobilinogen Urine 0.2 mg/dL (0.2-1.0)
[2022-11-11 19:55] LABS: Add Urine Microscopic? YES; Amorphous Sediment Urine Few; Mucus Urine Few /lpf; RBC Urine 0-2 /hpf (0-2)
[2022-11-11 19:56] VITALS: BP 153/88; PULSE 103; RESP 20; TEMP 36.7; O2SAT 100
== END 2022-11-11 20:35 | disposition home or self-care (01) ==
PROVIDERS: Emergency Provider Emergency Medicine; PCP Family Medicine
DX: S00.83XA Contusion of other part of head, initial encounter (principal); G89.29 Other chronic pain; S40.021A Contusion of right upper arm, initial encounter; K29.70 Gastritis, unspecified, without bleeding; I12.9 Hypertensive chronic kidney disease with stage 1 through stage 4 chronic kidney disease, or unspecified chronic kidney disease; E11.22 Type 2 diabetes mellitus with diabetic chronic kidney disease; N18.30 Chronic kidney disease, stage 3 unspecified; E78.5 Hyperlipidemia, unspecified; Z79.4 Long term (current) use of insulin; Z79.82 Long term (current) use of aspirin; Z86.73 Personal history of transient ischemic attack (TIA), and cerebral infarction without residual deficits; Z85.528 Personal history of other malignant neoplasm of kidney; Z87.891 Personal history of nicotine dependence; W19.XXXA Unspecified fall, initial encounter; Y92.009 Unspecified place in unspecified non-institutional (private) residence as the place of occurrence of the external cause
CPT/HCPCS: 36415; 70450; 70486; 74177; 80053; 81001; 82150; 82948; 83605; 83690; 85025; 96361; 96374; 99284; J2405; J7030; Q9967

== ENCOUNTER 2022-11-20 12:52 | Outpatient (CLI) | payer MEDICARE, OTHER, SELFPAY ==
[2022-11-20 13:13] LABS: Basophils Absolute Auto 0.08 K/mm3 (0.00-0.10); Basophils Percent Auto 0.7 % (0.0-1.0); Eosinophils Absolute Auto 0.47 K/mm3 (0.02-0.50); Eosinophils Percent Auto 4.1 % (1.0-6.0); Hematocrit 33.6 % (35.0-42.0); Hemoglobin 11.1 g/dL (11.7-13.8); Immature Granulocyte Absolute 0.06 K/mm3 (0.00-0.00); Immature Granulocyte Percent A 0.5 % (0.0-0.0); Lymphocytes Absolute Auto 2.31 K/mm3 (1.10-4.50); Mean Corpuscular Hemoglobin 27.4 pg (27.0-31.0); Monocytes Absolute Auto 1.01 K/mm3 (0.10-0.90); Monocytes Percent Auto 8.8 % (2.0-11.0); Neutrophils Absolute Auto 7.6 K/mm3 (1.7-7.2); Neutrophils Percent Auto 65.9 % (50.0-70.0); Platelet Count Result 264 K/mm3 (150-420); Red Blood Count 4.05 M/mm3 (4.20-5.40); Red Cell Distribution Width 13.7 % (11.6-14.4); White Blood Count 11.5 K/mm3 (4.8-10.8)
[2022-11-20 14:09] LABS: Free T4 Free Thyroxine 1.26 ng/dL (0.76-1.46); Thyroid Stimulating Hormone 7.01 uIU/mL (0.36-3.74)
== END 2022-11-20 12:53 | disposition home or self-care (01) ==
PROVIDERS: PCP Family Medicine; Visit Provider Family Medicine
DX: D72.829 Elevated white blood cell count, unspecified (principal); I10 Essential (primary) hypertension
CPT/HCPCS: 36415; 84439; 84443; 85025

== ENCOUNTER 2022-12-05 11:13 | Outpatient (CLI) | payer MEDICARE, OTHER, SELFPAY ==
[2022-12-05 11:28] LABS: Basophils Absolute Auto 0.08 K/mm3 (0.00-0.10); Basophils Percent Auto 0.9 % (0.0-1.0); Eosinophils Absolute Auto 0.39 K/mm3 (0.02-0.50); Eosinophils Percent Auto 4.4 % (1.0-6.0); Hematocrit 33.3 % (35.0-42.0); Hemoglobin 10.8 g/dL (11.7-13.8); Immature Granulocyte Absolute 0.05 K/mm3 (0.00-0.00); Immature Granulocyte Percent A 0.6 % (0.0-0.0); Lymphocytes Absolute Auto 1.89 K/mm3 (1.10-4.50); Lymphocytes Percent Auto 21.2 % (18.0-42.0); Mean Corpuscular HGB Conc 32.4 g/dL (32.0-36.0); Mean Corpuscular Hemoglobin 27.5 pg (27.0-31.0); Mean Corpuscular Volume 84.7 fL (78.0-102.0); Mean Platelet Volume 10.8 fl (9.2-11.8); Monocytes Absolute Auto 0.74 K/mm3 (0.10-0.90); Monocytes Percent Auto 8.3 % (2.0-11.0); Neutrophils Absolute Auto 5.8 K/mm3 (1.7-7.2); Neutrophils Percent Auto 64.6 % (50.0-70.0); Platelet Count Result 221 K/mm3 (150-420); Red Blood Count 3.93 M/mm3 (4.20-5.40); Red Cell Distribution Width 13.5 % (11.6-14.4); White Blood Count 8.9 K/mm3 (4.8-10.8)
[2022-12-05 12:07] LABS: Free T4 Free Thyroxine 1.67 ng/dL (0.76-1.46)
== END 2022-12-06 11:14 | disposition home or self-care (01) ==
PROVIDERS: PCP Family Medicine; Visit Provider Family Medicine
DX: I10 Essential (primary) hypertension (principal); E03.9 Hypothyroidism, unspecified; D72.829 Elevated white blood cell count, unspecified
CPT/HCPCS: 36415; 84439; 84443; 85025

== ENCOUNTER 2022-12-14 20:21 | Emergency (ER) | payer MEDICARE, OTHER, SELFPAY ==
[2022-12-14 20:36] VITALS: BP 164/44; PULSE 73; RESP 18; TEMP 36.6; O2SAT 97
[2022-12-14 20:46] VITALS: BP 145/63
--- NOTE | 2022-12-14 21:11 | ED.GENADULT ---
HPI - General Adult General Chief complaint: Eye Problems Stated complaint: Swollen Eye Source: patient Mode of arrival: ambulatory Limitations: no limitations History of Present Illness HPI narrative: patient complains of swelling around her right eye without any visual problems no blurred vision double vision no pain in her eye or around her eye her interface or inner ear or anywhere. She broke her nail cut that last night and had a little blood when she stuck in her right ear. Was no bleeding since her no problems hearing. Otherwise she is eating drinking stooling voiding fine no rash itching bleeding. A bowl bruises from her face and right arm when she fell 6 weeks ago she has no pain anywhere on those bruises. She is walking talking seeing and hearing fine. No cough sore throat runny nose fever sneezing discharge or eye or any other complaints. She has a history of thyroid abnormalities but med has not been started on a medicine for this. Related Data Home Medications Medication Instructions Recorded Confirmed ferrous sulfate 325 mg (65 mg 325 mg PO BID 06/22/19 11/19/22 iron) tablet insulin glargine 100 unit/mL (3 45 unit subcut BID 11/14/21 11/19/22 mL) subcutaneous pen (Lantus Solostar U-100 Insulin) ascorbic acid (vitamin C) 1,000 mg 1 g PO DAILY 08/28/22 11/19/22 capsule aspirin 81 mg tablet,delayed 81 mg PO BID 08/28/22 11/19/22 release calcium carbonate-vitamin D3 600 1 tablet PO DAILY 08/28/22 11/19/22 mg-125 unit tablet docusate sodium 100 mg tablet 100 mg PO BID PRN Constipation 08/28/22 11/19/22 latanoprost 0.005 % eye drops 1 drp EACH EYE QAM 08/28/22 11/19/22 mecobalamin (vitamin B12) 1,000 1,000 mcg PO DAILY 08/28/22 11/19/22 mcg chewable tablet Allergies Allergy/AdvReac Type Severity Reaction Status Date / Time lisinopril Allergy Severe TONGUE Verified 11/19/22 11:09 Swelling oxybutynin Allergy Severe PROBLEMS Verified 11/19/22 11:09 BREATHING fexofenadine Allergy Mild UPPER RESP Verified 11/19/22 11:09 INFECTION paroxetine Allergy Unknown NIGHT Verified 11/19/22 11:09 SWEATS bupropion AdvReac Unknown Nervousness Verified 11/19/22 11:09 tizanidine AdvReac Unknown blurred Verified 11/19/22 11:09 vision PMFSH Past Medical History Medical History Anemia Anxiety Cerebrovascular accident Presenting with expressive aphasia which has essentially resolved. Chronic kidney disease, stage 3 Chronic low back pain Chronic venous stasis dermatitis of both lower extremities Diverticulosis Dyslipidemia Hypertension Insulin dependent type 2 diabetes mellitus Kidney malignant neoplasm Major depressive disorder, single episode, unspecified Nonalcoholic fatty liver disease Obstructive sleep apnea Intolerant to CPAP. Osteomyelitis of great toe of left foot Renal cell carcinoma Status post partial bilateral nephrectomy. Right femoral fracture ORIF Vitamin B12 deficiency Surgical History Surgical History History of arthroplasty of right shoulder History of bilateral salpingo-oophorectomy (12/2008) History of carpal tunnel release History of cataract extraction History of cholecystectomy History of elbow surgery Cubital tunnel release. History of laparotomy (12/2008) Diagnostic laparotomy with extensive adhesiolysis and bilateral salpingo-oophorectomy History of open reduction and internal fixation (ORIF) procedure Right hip fracture. History of partial nephrectomy (2007) Bilateral partial nephrectomy for renal cell carcinoma done at [place]. History of tonsillectomy History of total abdominal hysterectomy History of total right hip arthroplasty Status post insertion of spinal cord stimulator With pain pump for chronic low back pain. Family History Family History Father Family history of hea
== END 2022-12-14 21:26 | disposition home or self-care (01) ==
PROVIDERS: Emergency Provider Emergency Medicine; PCP Family Medicine
DX: E11.39 Type 2 diabetes mellitus with other diabetic ophthalmic complication (principal); I12.9 Hypertensive chronic kidney disease with stage 1 through stage 4 chronic kidney disease, or unspecified chronic kidney disease; E11.22 Type 2 diabetes mellitus with diabetic chronic kidney disease; N18.30 Chronic kidney disease, stage 3 unspecified; E78.5 Hyperlipidemia, unspecified; F32.9 Major depressive disorder, single episode, unspecified; G47.33 Obstructive sleep apnea (adult) (pediatric); E53.8 Deficiency of other specified B group vitamins; K75.81 Nonalcoholic steatohepatitis (NASH); Z85.528 Personal history of other malignant neoplasm of kidney; Z90.5 Acquired absence of kidney; Z79.4 Long term (current) use of insulin; Z79.82 Long term (current) use of aspirin; Z87.891 Personal history of nicotine dependence; Z79.84 Long term (current) use of oral hypoglycemic drugs
CPT/HCPCS: 99282

== ENCOUNTER 2023-04-04 08:24 | Outpatient (CLI) | payer MEDICARE, SELFPAY ==
[2023-04-04 08:39] LABS: Basophils Absolute Auto 0.07 K/mm3 (0.00-0.10); Eosinophils Absolute Auto 0.36 K/mm3 (0.02-0.50); Eosinophils Percent Auto 5.1 % (1.0-6.0); Hematocrit 35.3 % (35.0-42.0); Hemoglobin 11.1 g/dL (11.7-13.8); Immature Granulocyte Absolute 0.04 K/mm3 (0.00-0.00); Immature Granulocyte Percent A 0.6 % (0.0-0.0); Lymphocytes Absolute Auto 2.17 K/mm3 (1.10-4.50); Lymphocytes Percent Auto 30.5 % (18.0-42.0); Mean Corpuscular HGB Conc 31.4 g/dL (32.0-36.0); Mean Corpuscular Hemoglobin 25.9 pg (27.0-31.0); Mean Corpuscular Volume 82.5 fL (78.0-102.0); Mean Platelet Volume 10.8 fl (9.2-11.8); Monocytes Absolute Auto 0.68 K/mm3 (0.10-0.90); Monocytes Percent Auto 9.6 % (2.0-11.0); Neutrophils Absolute Auto 3.8 K/mm3 (1.7-7.2); Neutrophils Percent Auto 53.2 % (50.0-70.0); Platelet Count Result 214 K/mm3 (150-420); Red Blood Count 4.28 M/mm3 (4.20-5.40); Red Cell Distribution Width 13.1 % (11.6-14.4); White Blood Count 7.1 K/mm3 (4.8-10.8)
[2023-04-04 08:53] LABS: Hemoglobin A1C 8.2 % (<5.7)
[2023-04-04 09:22] LABS: Alanine Aminotransferase 15 U/L (14-59); Albumin Level 3.4 g/dL (3.4-5.0); Alkaline Phosphatase 77 U/L (46-116); Anion Gap 5 mmol/L (8-16); Aspartate Amino Transferase < 10 U/L (15-37); Bilirubin,Total 0.3 mg/dL (0.00-1.00); Blood Urea Nitrogen 22 mg/dL (7-18); Calcium 8.8 mg/dL (8.5-10.1); Carbon Dioxide 33 mmol/L (21-32); Chloride 101 mmol/L (98-108); Estimated Glomerular Filt Rate 50; Ferritin 63 ng/mL (8-252); Free T4 Free Thyroxine 1.19 ng/dL (0.76-1.46); Glucose 165 mg/dL (70-99); Iron 49 ug/dL (50-170); Osmolality Calculated 295 mOsm/kg (285-295); Percent Iron Saturation 20 % (12-57); Potassium 4.6 mmol/L (3.5-5.1); Sodium 139 mmol/L (136-145); Thyroid Stimulating Hormone 7.48 uIU/mL (0.36-3.74); Total Protein 6.6 g/dL (6.4-8.2)
[2023-04-07 04:44] LABS: Thyroid Peroxidase Antibodies 2 IU/mL (<9)
== END 2023-04-04 08:25 | disposition home or self-care (01) ==
LOC: CHSLAB 08:25
PROVIDERS: PCP Family Medicine; Visit Provider Physician Assistant
DX: E11.621 Type 2 diabetes mellitus with foot ulcer (principal); L97.509 Non-pressure chronic ulcer of other part of unspecified foot with unspecified severity; Z79.4 Long term (current) use of insulin; R53.83 Other fatigue; I12.9 Hypertensive chronic kidney disease with stage 1 through stage 4 chronic kidney disease, or unspecified chronic kidney disease; E78.5 Hyperlipidemia, unspecified; E11.65 Type 2 diabetes mellitus with hyperglycemia; E11.29 Type 2 diabetes mellitus with other diabetic kidney complication; D50.9 Iron deficiency anemia, unspecified; N18.30 Chronic kidney disease, stage 3 unspecified
CPT/HCPCS: 36415; 80053; 82728; 83036; 83540; 83550; 84439; 84443; 85025; 86376

== ENCOUNTER 2023-05-02 16:32 | Outpatient (CLI) | payer MEDICARE, OTHER, SELFPAY ==
[2023-05-02 17:37] LABS: Anion Gap 8 mmol/L (8-16); Blood Urea Nitrogen 23 mg/dL (7-18); Carbon Dioxide 29 mmol/L (21-32); Chloride 100 mmol/L (98-108); Estimated Glomerular Filt Rate 49; Ferritin 75 ng/mL (8-252); Glucose 153 mg/dL (70-99); Iron 14 ug/dL (50-170); Osmolality Calculated 290 mOsm/kg (285-295); Percent Iron Saturation 6 % (12-57); Potassium 5.1 mmol/L (3.5-5.1); Sodium 137 mmol/L (136-145)
== END 2023-05-02 16:33 | disposition home or self-care (01) ==
LOC: CHSLAB 16:38
PROVIDERS: PCP Family Medicine; Visit Provider Internal Medicine Hematology & Oncology
DX: D50.8 Other iron deficiency anemias (principal)
CPT/HCPCS: 36415; 80048; 82728; 83540; 83550

== ENCOUNTER 2023-05-13 13:55 | Outpatient (CLI) | payer MEDICARE, OTHER, SELFPAY ==
[2023-05-13 14:12] LABS: Basophils Absolute Auto 0.1 K/mm3 (0.0-0.1); Basophils Percent Auto 0.9 % (0.2-1.2); Eosinophils Absolute Auto 0.3 K/mm3 (0-0.3); Eosinophils Percent Auto 4.1 % (0-4.4); Hematocrit 34.2 % (37.0-47.0); Hemoglobin 11.1 g/dL (12.0-15.0); Immature Granulocyte Absolute 0.02 K/mm3 (0.00-0.031); Immature Granulocyte Percent A 0.2 % (0-0.5); Mean Corpuscular HGB Conc 32.5 g/dl (32-36); Mean Corpuscular Hemoglobin 26.1 pg (26-34); Mean Corpuscular Volume 80.5 fl (80-100); Mean Platelet Volume 10.4 fl (7.4-10.4); Monocytes Absolute Auto 0.6 K/mm3 (0.1-0.6); Monocytes Percent Auto 7.1 % (2.6-8.5); Neutrophils Absolute Auto 5.4 K/mm3 (1.3-6.7); Neutrophils Percent Auto 67.7 % (45.5-73.1); Platelet Count Result 206 k/mm3 (150-375); Red Blood Count 4.25 M/mm3 (4.2-5.4); Red Cell Distribution Width 13.3 % (11.5-14.5)
== END 2023-05-13 13:56 | disposition home or self-care (01) ==
LOC: ANHLAB 13:58
PROVIDERS: PCP Family Medicine; Visit Provider Internal Medicine Hematology & Oncology
DX: D50.8 Other iron deficiency anemias (principal)
CPT/HCPCS: 36415; 85025

== ENCOUNTER 2023-05-17 12:44 | Outpatient (RCR) | payer MEDICARE, OTHER, SELFPAY ==
[2023-05-17 12:51] VITALS: BMI 28.6
== END 2023-08-06 07:58 | disposition home or self-care (01) ==
LOC: ANHWOC 12:44
PROVIDERS: Visit Provider Family Medicine
DX: I87.319 Chronic venous hypertension (idiopathic) with ulcer of unspecified lower extremity (principal)
CPT/HCPCS: 99213; A9270; G0463

== ENCOUNTER 2023-05-27 09:28 | Outpatient (CLI) | payer MEDICARE, OTHER, SELFPAY ==
--- NOTE | 2023-05-27 09:37 | ECHO_ITS ---
Patient Info Name: Ce Young Age: 72 years : 1950 Gender: Female Ht: 65 in Wt: 171 lbs BSA: 1.91 m2 HR: 75 bpm BP: 156 / 48 mmHg Heart Rhythm: Sinus Rhythm Technical Quality: Good Exam Date: 05/27/2023 9:33 AM Exam Location: [facility] Patient Status: Outpatient Admit Date: 05/27/2023 Staff Ordering Physician: Frantz Guzman DO [employer] Sewing Machine Operator: Isreal Greene RDCS Attending Provider: Frantz Guzman DO Referring Physician: Thomas VARELA; Exam Type: CA echo doppler color flow Study Info Indications - other ill defined heart disease Complete two-dimensional, color flow and Doppler transthoracic echocardiogram is performed. Summary 1. Complete two-dimensional, color flow and Doppler transthoracic echocardiogram is performed. 2. Left ventricular chamber dimension is normal. 3. Left ventricular systolic function is normal, estimated at 55-60%. 4. The left ventricular diastolic function is abnormal. 5. E/e' 18 is elevated. 6. Left atrial chamber dimension is mildly enlarged. 7. There is trace mitral valve regurgitation. 8. There is trace tricuspid valve regurgitation. 9. No pulmonary hypertension, estimated pulmonary arterial systolic pressure is 14 mmHg. Left Ventricle E/e' 18 is elevated. Left ventricular chamber dimension is normal. Left ventricular systolic function is normal, estimated at 55-60%. The left ventricular diastolic function is abnormal. Right Ventricle Right ventricular systolic function is normal and with normal TAPSE 3.9 cm. Right ventricular chamber dimension is normal. Left Atria Left atrial chamber dimension is mildly enlarged. Right Atria Right atrial chamber dimension is normal. Aortic Valve The aortic valve is trileaflet. There is no aortic valve stenosis. There is no aortic valve regurgitation. Pulmonic Valve There is no pulmonic regurgitation. Mitral Valve There is no mitral valve stenosis. There is trace mitral valve regurgitation. Tricuspid Valve There is trace tricuspid valve regurgitation. No pulmonary hypertension, estimated pulmonary arterial systolic pressure is 14 mmHg. Pericardium/Pleural There is no pericardial effusion. Inferior Vena Cava Normal inferior vena cava with >50% collapse upon inspiration consistent with normal right atrial pressure, 5 mmHg. Aorta The aortic root size at the sinus of Valsalva is normal. Left Ventricular Outflow Tract Name Value Normal LVOT 2D LVOT Diameter 2.1 cm LVOT Doppler LVOT Peak Velocity 112 cm/s LVOT Peak Gradient 4 mmHg LVOT Mean Gradient 2 mmHg LVOT VTI 36 cm LVOT VTI/AV VTI Ratio 1.0 LVOT Stroke Volume 120 ml Pulmonic Valve Name Value Normal RVOT Doppler RVOT Peak Gradient 1 mmHg PV Doppler
== END 2023-05-27 09:29 | disposition home or self-care (01) ==
LOC: CHSIMG 09:29
PROVIDERS: PCP Family Medicine; Visit Provider Internal Medicine Cardiovascular Disease
DX: I51.89 Other ill-defined heart diseases (principal)
CPT/HCPCS: 93306

== ENCOUNTER 2023-06-28 08:26 | Outpatient (CLI) | payer MEDICARE, OTHER, SELFPAY ==
[2023-06-28 08:42] LABS: Basophils Absolute Auto 0.07 K/mm3 (0.00-0.10); Basophils Percent Auto 0.9 % (0.0-1.0); Eosinophils Absolute Auto 0.34 K/mm3 (0.02-0.50); Eosinophils Percent Auto 4.5 % (1.0-6.0); Hematocrit 36.3 % (35.0-42.0); Hemoglobin 11.5 g/dL (11.7-13.8); Immature Granulocyte Absolute 0.03 K/mm3 (0.00-0.00); Immature Granulocyte Percent A 0.4 % (0.0-0.0); Lymphocytes Absolute Auto 1.78 K/mm3 (1.10-4.50); Lymphocytes Percent Auto 23.4 % (18.0-42.0); Mean Corpuscular HGB Conc 31.7 g/dL (32.0-36.0); Mean Corpuscular Volume 81.9 fL (78.0-102.0); Mean Platelet Volume 10.7 fl (9.2-11.8); Monocytes Absolute Auto 0.67 K/mm3 (0.10-0.90); Monocytes Percent Auto 8.8 % (2.0-11.0); Neutrophils Absolute Auto 4.7 K/mm3 (1.7-7.2); Platelet Count Result 201 K/mm3 (150-420); Red Blood Count 4.43 M/mm3 (4.20-5.40); Red Cell Distribution Width 13.9 % (11.6-14.4); White Blood Count 7.6 K/mm3 (4.8-10.8)
[2023-06-28 09:20] LABS: Iron 41 ug/dL (50-170); Percent Iron Saturation 19 % (12-57)
== END 2023-06-28 08:27 | disposition home or self-care (01) ==
LOC: CHSLAB 08:30
PROVIDERS: PCP Family Medicine; Visit Provider Internal Medicine Hematology & Oncology
DX: D50.8 Other iron deficiency anemias (principal)
CPT/HCPCS: 36415; 83540; 83550; 85025

== ENCOUNTER 2023-09-26 09:15 | Outpatient (CLI) | payer MEDICARE, SELFPAY ==
[2023-09-26 10:04] LABS: SARS-CoV-2 RNA PCR Positive (Negative)
[2023-09-26 10:05] LABS: Influenza A QL RT-PCR Negative (Negative); Influenza B QL RT-PCR Negative (Negative); RSV RNA, RT-PCR Negative (Negative)
== END 2023-09-26 09:16 | disposition home or self-care (01) ==
LOC: CHSLAB 09:16
PROVIDERS: PCP Family Medicine; Visit Provider Physician Assistant
DX: U07.1 COVID-19 (principal); R50.9 Fever, unspecified
CPT/HCPCS: 87637

== ENCOUNTER 2023-10-07 11:30 | Outpatient (CLI) | payer MEDICARE, OTHER, SELFPAY ==
--- NOTE | ~2023-10-07 | XR_ITS ---
Clinical Indication: Covid PA and lateral views of the chest: Comparison: 11/20/2020 Findings: There is patchy left basilar airspace disease. Right lung essentially clear. Cardiomediast inal silhouette is within normal limits. Bones and soft tissues are unremarkable. Impression: Patchy left basilar airspace disease, compatible left lower lobe pneumonia. Reviewed, dictated and finalized at [facility]. PRINTER Impression: Patchy left basilar airspace disease, compatible left lower lobe pneumonia.
== END 2023-10-07 11:31 | disposition home or self-care (01) ==
LOC: CHSIMG 11:32
PROVIDERS: PCP Family Medicine; Visit Provider Physician Assistant
DX: U07.1 COVID-19 (principal); R05.9 Cough, unspecified; R91.8 Other nonspecific abnormal finding of lung field
CPT/HCPCS: 71046

== ENCOUNTER 2023-12-30 10:00 | Outpatient (CLI) | payer MEDICARE, OTHER, SELFPAY ==
[2023-12-30 10:17] LABS: Basophils Absolute Auto 0.1 K/mm3 (0.0-0.1); Basophils Percent Auto 0.9 % (0.2-1.2); Eosinophils Absolute Auto 0.3 K/mm3 (0-0.3); Hematocrit 40.2 % (37.0-47.0); Immature Granulocyte Absolute 0.04 K/mm3 (0.00-0.031); Immature Granulocyte Percent A 0.5 % (0-0.5); Lymphocytes Absolute Auto 1.88 K/mm3 (0.9-3.2); Lymphocytes Percent Auto 23.7 % (18.3-44.2); Mean Corpuscular HGB Conc 32.3 g/dl (32-36); Mean Corpuscular Hemoglobin 26.6 pg (26-34); Mean Corpuscular Volume 82.4 fl (80-100); Mean Platelet Volume 11.4 fl (7.4-10.4); Monocytes Absolute Auto 0.6 K/mm3 (0.1-0.6); Monocytes Percent Auto 7.8 % (2.6-8.5); Neutrophils Percent Auto 63.1 % (45.5-73.1); Platelet Count Result 217 k/mm3 (150-375); Red Blood Count 4.88 M/mm3 (4.2-5.4); Red Cell Distribution Width 14.1 % (11.5-14.5); White Blood Count 7.9 K/mm3 (4.5-10.0)
[2023-12-30 10:21] LABS: Blood Urea Nitrogen 31 mg/dL (8-26); Carbon Dioxide 28 mmol/L (22-30); Chloride 95 mmol/L (98-109); Estimated Glomerular Filt Rate 40; Glucose 268 mg/dL (70-105); Ionized Calcium (POC) 1.14 mmol/L (1.11-1.31); Potassium 4.3 mmol/L (3.5-4.9); Sodium 137 mmol/L (138-146)
[2023-12-30 16:36] LABS: Iron 60 ug/dL (37-170)
[2023-12-30 16:47] LABS: Percent Iron Saturation 25 % (20-50)
[2023-12-30 17:51] LABS: Folic Acid > 20.0 ng/mL (2.76->20); Vitamin B12 > 1000.0 pg/mL (239-931)
== END 2023-12-30 10:01 | disposition home or self-care (01) ==
LOC: ANHLAB 10:02
PROVIDERS: PCP Family Medicine; Visit Provider Internal Medicine Hematology & Oncology
DX: D64.9 Anemia, unspecified (principal)
CPT/HCPCS: 36415; 80047; 82607; 82728; 82746; 83540; 83550; 85025

== ENCOUNTER 2024-01-14 09:32 | Outpatient (RCR) | payer MEDICARE, OTHER, SELFPAY ==
[2024-01-14 10:13] VITALS: BMI 26.5
== END 2024-04-13 23:59 | disposition home or self-care (01) ==
LOC: ANHWOC 09:32
PROVIDERS: PCP Family Medicine; Visit Provider Physician Assistant
DX: S81.802D Unspecified open wound, left lower leg, subsequent encounter (principal); S91.302D Unspecified open wound, left foot, subsequent encounter
CPT/HCPCS: 99214; G0463

== ENCOUNTER 2024-03-08 21:23 | Emergency (ER) | payer MEDICARE, OTHER, SELFPAY ==
[2024-03-08 21:23] VITALS: BP 150/48; PULSE 77; RESP 18; TEMP 36.7; O2SAT 96
[2024-03-08 21:30] VITALS: BP 150/48; PULSE 77; RESP 16; TEMP 36.7; O2SAT 96
--- NOTE | 2024-03-08 21:52 | PC.NURSE ---
margarita with lab was notified that blood work orders are in computer
[2024-03-08 22:13] LABS: Basophils Absolute Auto 0.07 K/mm3 (0.00-0.10); Basophils Percent Auto 0.7 % (0.0-1.0); Eosinophils Absolute Auto 0.53 K/mm3 (0.02-0.50); Eosinophils Percent Auto 5.3 % (1.0-6.0); Hematocrit 37.6 % (35.0-42.0); Hemoglobin 12.5 g/dL (11.7-13.8); Immature Granulocyte Absolute 0.07 K/mm3 (0.00-0.00); Immature Granulocyte Percent A 0.7 % (0.0-0.0); Lymphocytes Absolute Auto 1.54 K/mm3 (1.10-4.50); Lymphocytes Percent Auto 15.3 % (18.0-42.0); Mean Corpuscular HGB Conc 33.2 g/dL (32-36); Mean Corpuscular Hemoglobin 27.7 pg (27.0-31.0); Mean Corpuscular Volume 83.4 fL (78.0-102.0); Monocytes Absolute Auto 0.64 K/mm3 (0.10-0.90); Monocytes Percent Auto 6.4 % (2.0-11.0); Neutrophils Absolute Auto 7.21 K/mm3 (1.70-7.20); Neutrophils Percent Auto 71.6 % (50.0-70.0); Platelet Count Result 191 K/mm3 (150-420); Red Blood Count 4.51 M/mm3 (4.20-5.40); Red Cell Distribution Width 13.7 % (11.6-14.4); White Blood Count 10.1 K/mm3 (4.8-10.8)
[2024-03-08 22:25] LABS: INR 0.9; Partial Thromboplastin Time 25.4 Sec (23.9-30.70); Prothrombin Time 10.4 Seconds (9.50-12.1)
--- NOTE | 2024-03-08 22:26 | PC.NURSE ---
patient is resting on stretcher with family at her side. requested water, ice chips given at this time
--- NOTE | 2024-03-08 22:38 | ED.LOWEXIN ---
HPI - Extremity Injury (Lower) General Chief Complaint: Extremity Injury, Lower Stated Complaint: foot injury Time Seen by Provider: 03/08/24 21:30 Source: patient Mode of arrival: EMS Limitations: no limitations History of Present Illness HPI Narrative: Patient is a 73-year-old female with a left foot injury prior to arrival. She had a small area that started to bleed and squirt bright red blood. It stop bleeding but she wanted to come to the ER for evaluation with EMS. MD complaint: foot injury ( Left foot) Onset (ago): hour(s) (1) Injury: Left: foot Type of Injury: other ( patient tripped at home sustained the injury) Place: home Severity: mild Severity scale (1-10): 1 Relieving factors: nothing Exacerbating factors: other ( patient takes aspirin daily) Context: walking Associated symptoms: ambulatory Other symptoms: none Related Data Home Medications Medication Instructions Recorded Confirmed ferrous sulfate 325 mg (65 mg 325 mg PO BID 06/22/19 01/14/24 iron) tablet ascorbic acid (vitamin C) 1,000 mg 1 g PO DAILY 08/28/22 01/14/24 capsule calcium carbonate-vitamin D3 600 1 tablet PO DAILY 08/28/22 01/14/24 mg-125 unit tablet latanoprost 0.005 % eye drops 1 drp EACH EYE QAM 08/28/22 01/14/24 insulin glargine 100 unit/mL (3 35 unit subcut BID 04/05/23 01/14/24 mL) subcutaneous pen (Lantus Solostar U-100 Insulin) Allergies Allergy/AdvReac Type Severity Reaction Status Date / Time lisinopril Allergy Severe TONGUE Verified 01/14/24 10:31 Swelling oxybutynin Allergy Severe PROBLEMS Verified 01/14/24 10:31 BREATHING fexofenadine Allergy Mild UPPER RESP Verified 01/14/24 10:31 INFECTION paroxetine Allergy Unknown NIGHT Verified 01/14/24 10:31 SWEATS bupropion AdvReac Unknown Nervousness Verified 01/14/24 10:31 tizanidine AdvReac Unknown blurred Verified 01/14/24 10:31 vision Review of Systems Review of Systems: All systems reviewed & are unremarkable except as noted in HPI and below Constitutional: Constitutional: Reports no additional constitutional complaints Eyes: Eyes: Reports no additional eye complaints ENT: Reports system reviewed and no additional complaints, except as documented Cardiovascular: Cardiovascular: Reports no additional cardiovascular complaints Respiratory: Respiratory: Reports no additional respiratory complaints Gastrointestinal: Gastrointestinal: Reports no additional gastrointestinal complaints Genitourinary: Genitourinary: Reports no additional female genitourinary complaints Musculoskeletal: Musculoskeletal: Reports no additional musculoskeletal complaints Integumentary/Breasts: Skin/Breast: Reports system reviewed and no additional complaints, except as docu Neurologic: Reports system reviewed and no additional complaints, except as documented Psychiatric: Psychiatric: Reports no additional psychiatric complaints Endocrine: Endocrine: Reports no additional endocrine complaints Hematologic/Lymphatic: Hematologic/Lymphatic: Reports no additional hematologic/lymphatic complaints Allergic/Immunologic: Allergic/Immunologic: Reports no additional allergic/immunologic complaints PMFSH Past Medical History Medical History Anemia Anxiety Cerebrovascular accident Presenting with expressive aphasia which has essentially resolved. Chronic kidney disease, stage 3 Chronic low back pain Chronic venous stasis dermatitis of both lower extremities Diverticulosis Dyslipidemia Hypertension Insulin dependent type 2 diabetes mellitus Kidney malignant neoplasm Major depressive disorder, single episode, unspecified Nonalcoholic fatty liver disease Obstructive sleep apnea Intolerant to CPAP. Osteomyelitis of great toe of left foot Renal cell carcinoma Status post partial bilateral nephrectomy. Right femoral fracture ORIF Vitamin B12 deficiency Surgical History Surgical History (Rev
[2024-03-08] MEDS: SILVER NITRATE (*SP) STICK 1 EACH TOPICAL (22:51)
--- NOTE | 2024-03-08 22:58 | PC.NURSE ---
ER provider at the bedside removing ring from right hand
[2024-03-08 23:00] VITALS: BP 123/42; PULSE 64; RESP 18; O2SAT 96
--- NOTE | 2024-03-08 23:10 | PC.NURSE ---
ER provider at the bedside
== END 2024-03-08 23:17 | disposition home or self-care (01) ==
PROVIDERS: Emergency Provider Emergency Medicine; PCP Family Medicine
DX: S91.302A Unspecified open wound, left foot, initial encounter (principal); E78.5 Hyperlipidemia, unspecified; I12.9 Hypertensive chronic kidney disease with stage 1 through stage 4 chronic kidney disease, or unspecified chronic kidney disease; E11.22 Type 2 diabetes mellitus with diabetic chronic kidney disease; N18.30 Chronic kidney disease, stage 3 unspecified; Z86.73 Personal history of transient ischemic attack (TIA), and cerebral infarction without residual deficits; Z87.891 Personal history of nicotine dependence; W01.0XXA Fall on same level from slipping, tripping and stumbling without subsequent striking against object, initial encounter; Y92.009 Unspecified place in unspecified non-institutional (private) residence as the place of occurrence of the external cause
CPT/HCPCS: 12001; 36415; 85025; 85610; 85730; 99283

== ENCOUNTER 2024-05-13 08:50 | Outpatient (CLI) | payer MEDICARE, SELFPAY ==
[2024-05-13 09:09] LABS: Basophils Absolute Auto 0.05 K/mm3 (0.00-0.10); Basophils Percent Auto 0.7 % (0.0-1.0); Eosinophils Absolute Auto 0.47 K/mm3 (0.02-0.50); Eosinophils Percent Auto 6.4 % (1.0-6.0); Hematocrit 39.9 % (35.0-42.0); Hemoglobin 12.8 g/dL (11.7-13.8); Immature Granulocyte Absolute 0.05 K/mm3 (0.00-0.00); Immature Granulocyte Percent A 0.7 % (0.0-0.0); Lymphocytes Absolute Auto 1.52 K/mm3 (1.10-4.50); Lymphocytes Percent Auto 20.9 % (18.0-42.0); Mean Corpuscular HGB Conc 32.1 g/dL (32-36); Mean Corpuscular Hemoglobin 27.1 pg (27.0-31.0); Mean Corpuscular Volume 84.5 fL (78.0-102.0); Mean Platelet Volume 10.9 fl (9.2-11.8); Monocytes Absolute Auto 0.66 K/mm3 (0.10-0.90); Monocytes Percent Auto 9.1 % (2.0-11.0); Neutrophils Absolute Auto 4.54 K/mm3 (1.70-7.20); Neutrophils Percent Auto 62.2 % (50.0-70.0); Platelet Count Result 182 K/mm3 (150-420); Red Blood Count 4.72 M/mm3 (4.20-5.40); Red Cell Distribution Width 13.2 % (11.6-14.4); White Blood Count 7.3 K/mm3 (4.8-10.8)
[2024-05-13 09:16] LABS: Add Urine Microscopic? NO; Appearance Urine Clear (Clear); Bilirubin Urine Negative (Negative); Blood Urine Negative (Negative); Color Urine Light Yellow (Yellow); Glucose Urine UA 3+ (Negative); Ketones Urine Negative (Negative); Leukocyte Esterase Ur Negative (Negative); Nitrate Urine Negative (Negative); Protein Urine Negative (Negative); Urobilinogen Urine 0.2 mg/dL (0.2-1.0); pH Urine 6.5 (5.0-8.0)
[2024-05-13 11:09] LABS: Alanine Aminotransferase 15 U/L (14-59); Albumin Level 3.3 g/dL (3.4-5.0); Alkaline Phosphatase 89 U/L (46-116); Anion Gap 6 mmol/L (4-12); Aspartate Amino Transferase 15 U/L (15-37); Bilirubin,Total 0.6 mg/dL (0.00-1.00); Blood Urea Nitrogen 22 mg/dL (7-18); Calcium 8.7 mg/dL (8.5-10.1); Carbon Dioxide 33 mmol/L (21-32); Chloride 100 mmol/L (98-108); Cholesterol 153 mg/dL (0-200); Estimated Glomerular Filt Rate 49; Ferritin 287 ng/mL (8-252); Free T4 Free Thyroxine 1.12 ng/dL (0.76-1.46); Glucose 183 mg/dL (70-99); HDL Direct 33 mg/dL (40-60); Iron 85 ug/dL (50-170); LDL Cholesterol Calculated 78 mg/dL (<130); Osmolality Calculated 296 mOsm/kg (285-295); Percent Iron Saturation 41 % (12-57); Potassium 4.9 mmol/L (3.5-5.1); Sodium 139 mmol/L (136-145); Thyroid Stimulating Hormone 5.46 uIU/mL (0.36-3.74); Total Protein 6.9 g/dL (6.4-8.2); Triglycerides 211 mg/dL (0-150); Vitamin B12 1794 pg/mL (193-986)
[2024-05-13 11:24] LABS: Folic Acid > 20.0 ng/mL (8.6->20)
== END 2024-05-13 08:51 | disposition home or self-care (01) ==
PROVIDERS: PCP Family Medicine; Visit Provider Physician Assistant
DX: I10 Essential (primary) hypertension (principal); R79.89 Other specified abnormal findings of blood chemistry; D50.9 Iron deficiency anemia, unspecified; D64.9 Anemia, unspecified; E11.29 Type 2 diabetes mellitus with other diabetic kidney complication; E11.9 Type 2 diabetes mellitus without complications; E53.8 Deficiency of other specified B group vitamins; E78.5 Hyperlipidemia, unspecified; I12.9 Hypertensive chronic kidney disease with stage 1 through stage 4 chronic kidney disease, or unspecified chronic kidney disease; Z79.4 Long term (current) use of insulin; I73.9 Peripheral vascular disease, unspecified; N18.30 Chronic kidney disease, stage 3 unspecified
CPT/HCPCS: 36415; 80053; 80061; 81003; 82607; 82728; 82746; 83540; 83550; 84439; 84443; 85025

== ENCOUNTER 2024-06-25 13:46 | Outpatient (CLI) | payer MEDICARE, OTHER, SELFPAY ==
--- NOTE | ~2024-06-25 | US_ITS ---
EXAMINATION: US carotid duplex BI DATE: 06/25/2024 15:05 INDICATION: Occlusion and stenosis of the carotid arteries presenting with subjective visual disturba nce, speech-language deficit and facial weakness. TECHNIQUE: Grayscale, color Doppler, and pulsed Doppler images of the cervical carotid arteries were obtained. The degree of vessel stenosis is placed in one of the following categories: normal, <50%, 5 0-69%, >=70% but less than near-occlusion, near-occlusion, or total occlusion. Note that percent sten osis relative to normal distal artery lumen diameter is indirectly measured from velocity measurement s as described by Jeff, et al. Radiology 2003; [id number]. COMPARISON: None. FINDINGS: RIGHT: The right common carotid artery (CCA) peak systolic velocity (PSV) is 104 cm/s. The right internal ca rotid artery (ICA) PSV is 187 cm/s. The right ICA end-diastolic velocity (EDV) is 42 cm/s. The right ICA/CCA PSV ratio is 1.8. Grayscale and color Doppler images yield an estimate of 50-69% diameter red uction from plaque in the ICA. The external carotid artery (ECA) PSV is 161 cm/s. There is antegrade flow in the right vertebral artery. LEFT: Partial occlusion of the left common carotid artery with extensive hypoechoic thrombus within the art maryjane and minimal internal flow on color Doppler with high resistance waveform. The left CCA PSV is 23 cm/s. The left ICA is completely occluded. The ECA PSV is 79 cm/s. There is antegrade flow in the lef t vertebral artery. IMPRESSION: 1. 50-69% stenosis in the right internal carotid artery. 2. 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 Reviewed, dictated and finalized at location B. [facility]
== END 2024-06-25 13:47 | disposition home or self-care (01) ==
LOC: ANHIMG 13:47
PROVIDERS: PCP Family Medicine; Visit Provider Internal Medicine Cardiovascular Disease
DX: I65.21 Occlusion and stenosis of right carotid artery (principal); I65.22 Occlusion and stenosis of left carotid artery
CPT/HCPCS: 93880

== ENCOUNTER 2024-07-10 08:22 | Outpatient (CLI) | payer MEDICARE, OTHER, SELFPAY ==
[2024-07-10 08:42] LABS: Basophils Absolute Auto 0.06 K/mm3 (0.00-0.10); Basophils Percent Auto 0.7 % (0.0-1.0); Eosinophils Absolute Auto 0.44 K/mm3 (0.02-0.50); Eosinophils Percent Auto 4.8 % (1.0-6.0); Immature Granulocyte Absolute 0.05 K/mm3 (0.00-0.00); Immature Granulocyte Percent A 0.6 % (0.0-0.0); Lymphocytes Absolute Auto 1.51 K/mm3 (1.10-4.50); Lymphocytes Percent Auto 16.6 % (18.0-42.0); Mean Corpuscular HGB Conc 33.3 g/dL (32-36); Mean Corpuscular Hemoglobin 27.5 pg (27.0-31.0); Mean Corpuscular Volume 82.6 fL (78.0-102.0); Mean Platelet Volume 11.4 fl (9.2-11.8); Monocytes Absolute Auto 0.71 K/mm3 (0.10-0.90); Monocytes Percent Auto 7.8 % (2.0-11.0); Neutrophils Absolute Auto 6.32 K/mm3 (1.70-7.20); Neutrophils Percent Auto 69.5 % (50.0-70.0); Platelet Count Result 166 K/mm3 (150-420); Red Blood Count 4.72 M/mm3 (4.20-5.40); Red Cell Distribution Width 13.1 % (11.6-14.4); White Blood Count 9.1 K/mm3 (4.8-10.8)
[2024-07-10 09:21] LABS: Anion Gap 6 mmol/L (4-12); Blood Urea Nitrogen 30 mg/dL (7-18); Calcium 8.8 mg/dL (8.5-10.1); Carbon Dioxide 33 mmol/L (21-32); Chloride 98 mmol/L (98-108); Estimated Glomerular Filt Rate 43; Ferritin 323 ng/mL (8-252); Folic Acid 14.7 ng/mL (8.6->20); Glucose 173 mg/dL (70-99); Iron 49 ug/dL (50-170); Osmolality Calculated 294 mOsm/kg (285-295); Percent Iron Saturation 24 % (12-57); Potassium 4.3 mmol/L (3.5-5.1); Sodium 137 mmol/L (136-145); Vitamin B12 1404 pg/mL (193-986)
== END 2024-07-10 08:23 | disposition home or self-care (01) ==
PROVIDERS: PCP Family Medicine; Visit Provider Internal Medicine Hematology & Oncology
DX: D64.9 Anemia, unspecified (principal)
CPT/HCPCS: 36415; 80048; 82607; 82728; 82746; 83540; 83550; 85025

== ENCOUNTER 2024-10-20 17:49 | Emergency (ER) | payer MEDICARE, OTHER, SELFPAY ==
--- NOTE | ~2024-10-20 | XR_ITS ---
EXAM: XR abdomen obstructive series DATE: 10/20/2024 18:34 HISTORY: BROKEN NEEDLE UNDER THE SKIN OF THE ABDOMEN . COMPARISON: 08/22/2020. FINDINGS: Clear lung bases. Paucity of small bowel gas. Normal large bowel gas pattern. Right-sided stimulator and other implanted device. Stimulator packs over the lower thoracic spine. Surgical clips over the GE junction. Partially visualized left hip hardware. 8mm linear radiopacities projecting ov er the superior aspect and inferior aspect of the umbilical shadow in the lateral view. No definite c orrelate in the frontal view. IMPRESSION: 2 broken needle fragments are present in the anterior abdominal soft tissues, above and b elow the umbilicus, not visualized in the frontal view which limits ability to more precisely localiz e. Reviewed, dictated and finalized at [facility]. IMPRESSION: 2 broken needle fragments are present in the anterior abdominal sof t tissues, above and below the umbilicus, not visualized in the frontal view wh ich limits ability to more precisely localize.
[2024-10-20 17:50] VITALS: BP 159/72; PULSE 74; RESP 16; TEMP 36.4; O2SAT 96
--- NOTE | 2024-10-20 18:10 | ED.GENADULT ---
HPI - General Adult General Chief complaint: Unspecified Stated complaint: NEEDLE BROKE OFF IN ABD Time Seen by Provider: 10/20/24 18:09 Source: patient Mode of arrival: ambulatory History of Present Illness HPI narrative: 74 YEARS OLD WHITE FEMALE CAME FROM HOME BY A CAR COMPLAINING OF MISSING HER INSULIN NEEDLE UNDER THE SKIN PRIOR TO ARRIVAL. PATIENT REPORTS THAT HER INSULIN NEEDLE BROKE OFF IN HER ABDOMEN THIS MORNING. SHE DENIES OTHER COMPLAINT. Related Data Home Medications ?Medication ?Instructions ?Recorded ?Confirmed ?Last Taken ?Type ferrous sulfate 325 mg (65 mg 325 mg PO BID 06/22/19 10/14/24 12/05/21 History iron) tablet ascorbic acid (vitamin C) 1,000 mg 1 g PO DAILY 08/28/22 10/14/24 Unknown History capsule calcium carbonate-vitamin D3 600 1 tablet PO DAILY 08/28/22 10/14/24 Unknown History mg-125 unit tablet latanoprost 0.005 % eye drops 1 drp EACH EYE QAM 08/28/22 10/14/24 Unknown History insulin glargine 100 unit/mL (3 35 unit subcut BID 04/05/23 10/14/24 Unknown History mL) subcutaneous pen (Lantus Solostar U-100 Insulin) Allergies Allergy/AdvReac Type Severity Reaction Status Date / Time lisinopril Allergy Severe TONGUE Verified 10/20/24 18:04 Swelling oxybutynin Allergy Severe PROBLEMS Verified 10/20/24 18:04 BREATHING fexofenadine Allergy Mild UPPER RESP Verified 10/20/24 18:04 INFECTION paroxetine Allergy Unknown NIGHT Verified 10/20/24 18:04 SWEATS bupropion AdvReac Unknown Nervousness Verified 10/20/24 18:04 tizanidine AdvReac Unknown blurred Verified 10/20/24 18:04 vision Review of Systems Review of Systems: All systems reviewed & are unremarkable except as noted in HPI and below PMFSH Past Medical History Medical History Chronic low back pain Renal cell carcinoma Status post partial bilateral nephrectomy. Nonalcoholic fatty liver disease Obstructive sleep apnea Intolerant to CPAP. Insulin dependent type 2 diabetes mellitus Cerebrovascular accident Presenting with expressive aphasia which has essentially resolved. Chronic kidney disease, stage 3 Osteomyelitis of great toe of left foot Anxiety Vitamin B12 deficiency Chronic venous stasis dermatitis of both lower extremities Major depressive disorder, single episode, unspecified Right femoral fracture ORIF Kidney malignant neoplasm Diverticulosis Dyslipidemia Anemia Hypertension Surgical History Surgical History History of tonsillectomy History of total abdominal hysterectomy Status post insertion of spinal cord stimulator With pain pump for chronic low back pain. History of bilateral salpingo-oophorectomy (12/2008) History of partial nephrectomy (2007) Bilateral partial nephrectomy for renal cell carcinoma done at [facility]. History of elbow surgery Cubital tunnel release. History of cholecystectomy History of open reduction and internal fixation (ORIF) procedure Right hip fracture. History of arthroplasty of right shoulder History of cataract extraction History of carpal tunnel release History of laparotomy (12/2008) Diagnostic laparotomy with extensive adhesiolysis and bilateral salpingo-oophorectomy History of total right hip arthroplasty Family History Family History Father Family history of heart disease in male family member before age 55 Family history of coronary artery disease Cerebrovascular accident Sibling Family history of coronary artery disease Mother Family history of obesity Grandparent Diabetes mellitus Grandparent Family history of glaucoma Other Depression Family history of cardiovascular disease Hypertension Social History Social History Social History: . Retired. Daughter and son live with her in [place]. Smokes 1 pack of the day for 44 quit in 2004. Surrogate decision maker: Children or sister. CODE STATUS: Full code. Smoking packs per day: 1 Smoking cigarettes per day: 20.0 Years smoked: 10 Smoking pack-years: 10.00 Smoking status: Former smoker Tobacco type: cigarettes Second hand tobacco smoke exposure: No Smoking end date: 08/12/04 Additional smoking assessment comments: QUIT 2005 Alcohol intake: never Substance use: never Substance use type: does not use Do You Feel Safe in your Home?: Yes Lack of Transportation: No Lack of Food: Never True Current Housing: I Have Housing Concerned About Future Housing: No Difficulty Paying Gas/Electric Bills: No Difficulty Paying for Meds: No Currently Unemployed: No Education: High School Diploma/GED Difficulty w/ Childcare or Family Care: No Living arrangements: with family Additional living arrangements comments: [facility] LIV[facility] WITH PT Occupation/Education: retired Spiritual care concerns: No Exam Narrative: GENERAL APPEARANCE: WELL-DEVELOPED, WELL-NOURISHED SKIN: NORMAL COLOR HEAD: NORMOCEPHALIC, NONTRAUMATIC EYES: CLEAR CONJUNCTIVA ENT: OROPHARYNX NORMAL, EARS NORMAL, NOSE NORMAL NECK: SUPPLE, NONTENDER CHEST AND RESPIRATORY: AIRWAY PATENT, NO RESPIRATORY DISTRESS, NO ACCESSORY MUSCLE USE HEART: REGULAR RATE/RHYTHM ABDOMEN: SOFT, NONTENDER, NO ORGANOMEGALY, QUIET BOWEL SOUNDS , PUNCTURE FELICIANO OF THE NEEDLE AT THE MID UPPER ABDOMEN VASCULAR: NORMAL PERIPHERAL PULSES, NORMAL CAPILLARY REFILL. MUSCULOSKELETAL: NORMAL RANGE OF MOTION, NONTENDER BACK NEUROLOGIC: ALERT AND ORIENTED ?3, GROUND HEL[address]RE[address] RAILWAY IS NORMAL TESTED, NO GROSS MOTOR DEFICIT Course Consultations Consultation #1: DR MERLOS OUTPATIENT FOLLOW-UP Date: 10/20/24 Time: 21:19 Vital Signs Vital signs: Vital Signs Temperature 36.4 C 10/20/24 17:50 Pulse Rate 74 10/20/24 17:50 Respiratory Rate 16 10/20/24 17:50 Blood Pressure 159/72 H 10/20/24 17:50 Pulse Oximetry 96 10/20/24 17:50 Oxygen Delivery Room Air 10/20/24 17:50 Temperature 36.4 C 10/20/24 17:50 Pulse Rate 74 10/20/24 17:50 Respiratory Rate 16 10/20/24 17:50 Blood Pressure 159/72 H 10/20/24 17:50 Pulse Oximetry 96 10/20/24 17:50 Oxygen Delivery Room Air 10/20/24 17:50 Medical Decision Making Vital Signs Vital Signs: Vital Signs Temperature 36.4 C 10/20/24 17:50 Pulse Rate 74 10/20/24 17:50 Respiratory Rate 16 10/20/24 17:50 Blood Pressure 159/72 H 10/20/24 17:50 Pulse Oximetry 96 10/20/24 17:50 Oxygen Delivery Room Air 10/20/24 17:50 Temperature 36.4 C 10/20/24 17:50 Pulse Rate 74 10/20/24 17:50 Respiratory Rate 16 10/20/24 17:50 Blood Pressure 159/72 H 10/20/24 17:50 Pulse Oximetry 96 10/20/24 17:50 Oxygen Delivery Room Air 10/20/24 17:50 Imaging Data Radiologist's impression: Impressions Abdomen X-Ray 10/20/24 18:47 IMPRESSION: 2 broken needle fragments are present in the anterior abdominal soft tissues, above and below the umbilicus, not visualized in the frontal view which limits ability to more precisely localize. Critical Care Time Critical Care Time Critical Care Time: No Discharge Plan Discharge Clinical Impression: Acute foreign body of abdominal wall Patient Disposition: Home, Self-Care Condition: Stable Instructions: Soft Tissue Foreign Body (ED) Additional Instructions: RETURN IF SYMPTOMS ARE WORSENING , CALL DR MERLOS IN AM FOR APPOINTMENT, TAKE TYLENOL NEEDED FOR ACHES AND PAIN, CONTINUE HOME MEDICATIONS. Patient Language: Niuean Prescriptions: No Action Jardiance 10 mg tablet 10 mg PO DAILY Qty: 90 2RF hydrochlorothiazide 25 mg tablet 25 mg PO DAILY Qty: 90 2RF insulin glargine [Lantus Solostar U-100 Insulin] 100 unit/mL (3 mL) insulin pen 35 unit SUBCUT BID buspirone 5 mg tablet 5 mg PO TID PRN (Reason: Anxiety) Qty: 90 0RF loratadine 10 mg tablet 10 mg PO DAILY Qty: 90 2RF cephalexin 500 mg tablet 500 mg PO Q8H Qty: 21 0RF latanoprost 0.005 % drops 1 drp EACH EYE QAM calcium carbonate-vitamin D3 600-125 mg-unit Tablet 1 tablet PO DAILY ascorbic acid (vitamin C) 1,000 mg Capsule 1 g PO DAILY ferrous sulfate 325 mg (65 mg iron) tablet 325 mg PO BID aspirin 81 mg tablet,delayed release (DR/EC) 81 mg PO BID Qty: 180 2RF fluoxetine 40 mg capsule 40 mg PO DAILY Qty: 90 2RF mecobalamin (vitamin B12) 1,000 mcg tablet,chewable 1,000 mcg PO DAILY Qty: 90 2RF prochlorperazine maleate [Compazine] 5 mg tablet 5 mg PO Q8H PRN (Reason: nausea and vomiting) Qty: 20 0RF Silver-Sept 200 mcg/gram gel 1 applic topical DAILY Qty: 60 0RF Rx Instructions: Apply to area of concern daily or as instructed valsartan [Diovan] 40 mg tablet 40 mg PO BID Qty: 180 2RF metoprolol succinate 50 mg tablet extended release 24 hr See Rx Instructions .ROUTE .COMPLEX Qty: 90 2RF Dose Instruction: TAKE ONE TABLET BY MOUTH DAILY Rx Instructions: TAKE ONE TABLET BY MOUTH DAILY atorvastatin 20 mg tablet 20 mg PO HS Qty: 90 2RF cyclobenzaprine 5 mg tablet 5 mg PO QHS PRN (Reason: muscle spasm) Qty: 90 0RF docusate sodium 100 mg tablet 100 mg PO BID PRN (Reason: Constipation) Qty: 60 0RF mirabegron [Myrbetriq] 50 mg tablet extended release 24 hr 50 mg PO DAILY Qty: 90 2RF omega-3 acid ethyl esters [Lovaza] 1 gram capsule 1 cap PO BID Qty: 180 2RF pantoprazole [Protonix] 40 mg tablet,delayed release (DR/EC) 40 mg PO QAM Qty: 90 2RF Follow-up/Referrals: Axel Price MD [Primary Care Provider] - Shannan Reich RN [Emergency Nurse] - Damien Merlos DO [Physician] - 10/21/24
--- OUTSIDE RECORDS SUMMARY | 2024-10-20 18:25 | XMS_ITS ---
Author Organization [facility] [employer] Address [address] [place] [address] Care Team Providers Care Interior Design Director Name Role Phone Axel Price MD Primary Care Provider Krissy Mercado Unavailable [phone] Allergies Allergen (clinical drug ingredient) Drug/Non Drug Allergy documented on EMR Reaction Allergy Type Onset Date Status Lisinopril Unknown Drug Allergy 12/17/2023 Activ e oxyBUTYnin Unknown Drug Allergy 12/17/2023 Activ e bupropion Bupropion Unknown Drug Allergy 12/17/2023 Active fexofenadine Fexofenadine Unknown Drug Allergy 12/17/2023 Active paroxetine Paroxetine Unknown Drug Allergy 12/17/2023 Acti ve tizanidine Tizanidine Unknown Drug Allergy 12/17/2023 Acti ve REASON FOR VISIT Follow Up, MIPS diagnosis of HTN Medications Medication SIG (Take, Route, Frequency, Duration) Notes Start Date End Date Status [id number] Ethyl Esters 1 GM Oral Active hydroCHLOROthiazide 25 MG Oral 12/17/2023 Active Pantoprazole Sodium 40 MG Oral 12/17/2023 Active Latanoprost 0.005 % Ophthalmic 12/17/2023 Active Ferrous Sulfate 325 (65 Fe) MG 1 tablet Orally Three times a Week Active Aspirin 81 81 MG 1 tablet Orally Once a day Active Vitamin B12 100 MCG as directed Orally Active Ascorbic Acid 500 MG 1 tablet Orally Onc e a day Active Calcium Carbonate 1250 (500 Ca) MG 1 tablet with food Orally Twice a day Active Lantus 100 UNIT/ML as directed Subcutaneous Active FLUoxetine HCl 40 MG 1 capsule Oral Once a day 12/17/2023 Active Compazine Active Silver - as directed Externally Active Valsartan 40 MG 1 tablet Orally Twic e a day Active busPIRone HCl 10 MG 1 tablet Oral three times a day 02/28/2024 Active Myrbetriq 50 MG Oral 12/17/2023 Act emely Docusate Sodium 100 MG Oral 12/17/2023 Active Jardiance 10 MG Oral 12/17/2023 Act emely Loratadine 10 MG Oral 12/17/2023 Ac tive Atorvastatin Calcium 20 MG Oral 12/17/2023 Active Metoprolol Succinate ER 50 MG Oral 12/17/2023 Active Cyclobenzaprine HCl 5 MG Oral 12/17/2023 Active Social History Tobacco Use: Social History Observation Description Date Details (start date - stop date) Former Smoker NA - NA Sex Assigned At : Social History Observation Description Sex Assigned At Female Tobacco Control (Standard) Question Answer Notes Tobacco use: Former smoker Section Notes: Substance Use Do you or have you ever smoked tobacco?: Former smoker How many years have you smoked tobacco?: 40 (Notes: on and off) At what age did you start smoking tobacco?: 14 How much tobacco do you smoke?: None When did you quit smoking?: 16+ years since last cigarette Do you or have you ever used any other forms of tobacco or nicotine?: No Do you or have you ever used e-cigarettes or vape?: Never used electronic cigarettes What was the date of your most recent tobacco screening?: 12/17/2023 Has tobacco cessation counseling been provided?: No What is your level of alcohol consumption?: Occasional How many years have you consumed alcohol?: 0 Have you ever been counseled for unhealthy alcohol use?: No Do you use any illicit or recreational drugs?: No Which illicit or recreational drugs have you used?: Zero Have you used IV drugs?: No What is your level of caffeine consumption?: Moderate Education and Occupation What is the highest grade or level of school you have completed or the highest degree you have received?: Some college, no degree Are you currently employed?: No Who is your employer?: 0 Marriage and Sexuality What is your relationship status?: Are you sexually active?: No Do you use protection during sex?: Always How many children do you have?: 2 Home and Environment Are there any guns present in your home?: Yes Advance Directive Do you have an advance directive?: Yes Do you have a medical power of patent attorney?: No Problems Problem Type SNOMED Code ICD Code Onset Dates Problem Status W/U Status Risk Notes Problem Recurrent major depression in remission (38505624) Major depressive disorder, recurrent, in partial remission (F33.41) Active confirmed Problem Essential hypertension (01884159) Benign essential HTN (I10) Active confirmed Vital Signs Blood pressure systolic 114 mm Hg 10/21/19 25 Blood pressure diastolic 67 mm Hg 025 Heart Rate 76 /min 10/20/2024 Height 66.00 in 10/20/2024 Weight 165 lbs 10/20/2024 BMI 26.63 kg/m2 10/20/2024 Height-cm 167.64 cm 10/20/2024 Weight-kg 74.84 kg 10/20/2024 Encounters Encounter [facility] Date [facility] [address] [place] [address] 10/20/2024 Krissy Delgado Major depressive disorder, recurrent, in partial remission F33.41 ; Generalized anxiety disorder F41.1 ; Encounter for screening for depression Z13.31 and Benign essential HTN I10 Assessments Encounter Date Diagnosis (ICD Code) Assessment Notes Treatment Notes Treatment Clinical Notes Section Notes 10/20/2024 Major depressive disorder, recurrent, in partial remission (ICD-10 - F33.41) 10/20/2024 Generalized anxiety disorder (ICD-10 - F41.1) 10/20/2024 Encounter for screening for depression (ICD-10 - Z13.31) 10/20/2024 Benign essential HTN (ICD-10 - I10) 10/20/2024 Other no refills needed at this time Plan Of Treatment Medication Medication Name Sig Start Date Stop Date Notes FLUoxetine HCl 40 MG 1 capsule Oral Once a day 12/17/2023 busPIRone HCl 10 MG 1 tablet Oral three times a day 2023 Treatment Notes Assessment Notes Other no refills needed at this time Next Appt Details Follow Up: 3 Months, Reason: Provider Name:Mel Delcid, 11/20/2024 10:00:00 AM, [address], [address], [place], [address], Provider Name:Krissy Knightkylesole yaneli, 01/20/2025 11:00:00 AM, [address], [facility] [address], [place], [address], Progress Notes * IRENE MUNGUIA LindseyDOB:1949 (74 yo F)Acc No.[id number]:10/20/2024 Patient: IRENE YAN Provider: Seda Delgado :1950 A ge:74 Y S ex:Female Date:10/20/2024 Address:[address] [place], [place] [id number] Pcp:Axle Price MD Subjective: * Chief Complaints: * 1 . Follow Up. 2. MIPS diagnosis of HTN. * HPI: D epression screening: PHQ-9 L ittle interest or pleasure in doing things?Several days F eeling down, depressed, or hopeless S everal days T rouble falling or staying asleep, or sleeping too much S everal days F eeling tired or having little energy N ot at all P oor appetite or overeating N ot at all F eeling bad about yourself or that you are a failure, or have let yourself or your family down N ot at all T rouble concentrating on things, such as reading the newspaper or watching television N ot at all M oving or speaking so slowly that other people could have noticed; or the opposite, being so fidgety or restless that you have been moving around a lot more than usual N ot at all T houghts that you would be better off or of hurting yourself in some way N ot at all T otal Score 3 I nterpretation M inimal Depression Intervention D epression Screening Findings N egative S uicide Risk Assessment Performed _ D epression Screening: LYNNE-7 (2018 Edition) F eeling nervous, anxious, or on edge N ot at all N ot being able to stop or control worrying?Not at all W orrying too much about different things N ot at all T rouble relaxing S everal days B eing so restless that it is hard to sit still N ot at all B ecoming easily annoyed or irritable N ot at all F eeling afraid as if something awful might happen N ot at all T otal LYNNE-7 Score 1 I nterpretation of Total ( 0 to 4) No Anxiety H istory of Presenting Problem: 74 y/o female, , 2 grown children living with her, here for follow up related to depression, anxiety, insomnia. ongoing notes: December 2019 mother at [place] a long time ago 07/15/24 [facility] . * ROS: G eneral / Constitutional: Patient denies f atigue, sleep disturbance, change in appetite. C ardiovascular: Patient denies c hest pain, dizziness, palpitations, swelling in hands / feet. G astrointestinal: Patient denies c hange in bowel habits, nausea, vomiting, difficulty swallowing. N eurologic: Patient denies c onfusion, memory loss. P atient complains of b alance difficulty (uses cane), , pain (back, chronic). P sychiatric: Patient denies s uicidal thoughts, psychosis, auditory / visual hallucinations, delusions, ata. C dionne S ee HPI for more details. P atient not eligible due to active diagnosis of hypertension: G 6586. * Medical History: P jermaine: Chronic kidney disease stage 3, Diabetes mellitus, Generalized anxiety disorder, Primary insomnia, Stroke 2012, Essential hypertension, Hypercholesterolemia, GERD (gastroesophageal reflux disease), B12 deficiency, Pain pump, Spinal stimulator, Obstructive sleep apnea (adult) (pediatric), Iron deficiency anemia, unspecified. * Surgical History: C ataract surgery (34529) , Hysterectomy (22792) , Tonsilectomy/adenoids 08/12/1955, Removal of gallbladder (19930) 08/12/1979. * Family History: P aternal Grandmother: Diabetes mellitus . S ister: Hypothyroidism , Malignant neoplastic disease . * Social History: T obacco Use: T obacco Control (Standard) T obacco use: F ormer smoker S ubstance Use Do you or have you ever smoked tobacco?: Former smoker How many years have you smoked tobacco?: 40 (Notes: on and off) At what age did you start smoking tobacco?: 14 How much tobacco do you smoke?: None When did you quit smoking?: 16+ years since last cigarette Do you or have you ever used any other forms of tobacco or nicotine?: No Do you or have you ever used e-cigarettes or vape?: Never used electronic cigarettes What was the date of your most recent tobacco screening?: 12/17/2023 Has tobacco cessation counseling been provided?: No What is your level of alcohol consumption?: Occasional How many years have you consumed alcohol?: 0 Have you ever been counseled for unhealthy alcohol use?: No Do you use any illicit or recreational drugs?: No Which illicit or recreational drugs have you used?: Zero Have you used IV drugs?: No What is your level of caffeine consumption?: Moderate Education and Occupation What is the highest grade or level of school you have completed or the highest degree you have received?: Some college, no degree Are you currently employed?: No Who is your employer?: 0 Marriage and Sexuality What is your relationship status?: Are you sexually active?: No Do you use protection during sex?: Always How many children do you have?: 2 Home and Environment Are there any guns present in your home?: Yes Advance Directive Do you have an advance directive?: Yes Do you have a medical power of patent attorney?: No. * Medications: T aking Valsartan 40 MG Tablet 1 tablet Orally Twice a day , Taking Silver - Gel as directed Externally , Taking Compazine , Taking Vitamin B12 100 MCG Tablet as directed Orally , Taking Aspirin 81 81 MG Tablet Delayed Release 1 tablet Orally Once a day , Taking Lantus 100 UNIT/ML Solution as directed Subcutaneous , Taking Calcium Carbonate 1250 (500 Ca) MG Tablet Chewable 1 tablet with food Orally Twice a day , Taking Ascorbic Acid 500 MG Tablet 1 tablet Orally Once a day , Taking Ferrous Sulfate 325 (65 Fe) MG Tablet 1 tablet Orally Three times a Week , Taking Latanoprost 0.005 % Solution Ophthalmic , Taking Pantoprazole Sodium 40 MG Tablet Delayed Release Oral , Taking hydroCHLOROthiazide 25 MG Tablet Oral , Taking [id number]-[id number] Ethyl Esters 1 GM Capsule Oral , Taking Cyclobenzaprine HCl 5 MG Tablet Oral , Taking Metoprolol Succinate ER 50 MG Tablet Extended Release 24 Hour Oral , Taking Atorvastatin Calcium 20 MG Tablet Oral , Taking Loratadine 10 MG Tablet Oral , Taking Jardiance 10 MG Tablet Oral , Taking Docusate Sodium 100 MG Capsule Oral , Taking Myrbetriq 50 MG Tablet Extended Release 24 Hour Oral , Taking busPIRone HCl 10 MG Tablet 1 tablet Oral three times a day , stop date 03/31/2025, Taking FLUoxetine HCl 40 MG Capsule 1 capsule Oral Once a day , Medication List reviewed and reconciled with the patient * Allergies: L isinopril: Allergy - Onset Date 12/17/2023, oxyBUTYnin: Allergy - Onset Date 12/17/2023, Bupropion: Allergy - Onset Date 12/17/2023, Fexofenadine: Allergy - Onset Date 12/17/2023, Paroxetine: Allergy - Onset Date 12/17/2023, Tizanidine: Allergy - Onset Date 12/17/2023. Objective: * Vitals: B P:114/67mm Hg, HR:76/min, Wt:165lbs, Wt-k.84 kg, Ht: 66.00 in, Ht-cm: 167.64 cm, BMI:26.63Index, Body Surface Area: 1.86. * Examination: P sychiatry: Appearance: w ell-groomed. Affect / mood: a ppropriate. Attention: n ormal in conversation. Attitude: c ooperative. Gait u ses a cane. Homicidal ideation: n one. Suicidal ideation: n one. Memory status: n o impairment noted. Insight: g ood. Intellectual functioning: n o impairment noted. Judgement: g ood. Orientation: a wake, alert and oriented x 3. Speech / language: a ppropriate pitch/modulation, clear and coherent, normal rate, volume, and articulation (RVR), proper grammar used. Thought content: a ppropriate. Thought process: i ntact. Assessment: * Assessment: 1. M ajor depressive disorder, recurrent, in partial remission - F33.41 (Primary) ?2. G eneralized anxiety disorder - F41.1 3 . E ncounter for screening for depression - Z13.31 4 . B enign essential HTN - I10 Plan: * Treatment: 2. G eneralized anxiety disorder Continue busPIRone HCl Tablet, 10 MG, 1 tablet, Oral, three times a day. 3. O thers Notes: no refills needed at this time * Procedure Codes: 9 6127 BEHAV ASSMT W/SCORE & DOCD/STAND INSTRUMENT, G9744 Pt not gunjan d/t act dig htn, G2211 VISIT COMPLEXITY INHERENT TO ONGOING CARE RELATED TO A PATIENT'S SINGLE, SERIOUS CONDITION OR A COMPLEX CONDITION * Follow Up: 3 Months * Billing Information: * Visit Code: 69885 OFFICE OUTPATIENT VISIT 25 MINUTES DETAILED HISTORY AND EXAM/MODERATE MEDICAL DECISION MAKING. * Procedure Codes: 81039 BEHAV ASSMT W/SCORE & DOCD/STAND INSTRUMENT. G9744 Pt not gunjan d/t act dig htn. G2211 VISIT COMPLEXITY INHERENT TO ONGOING CARE RELATED TO A PATIENT'S SINGLE, SERIOUS CONDITION OR A COMPLEX CONDITION. * Electronic signature of Cuco Delgado on 10/20/2024 at 06:25 PM CDT Sign off status: Pending * Provider: Seda Delgado Date: 10/20/2024 Generated for Dave edmonds/Chapis/Sharon on: 0 10/20/2024 06:25 PM CDT History and Physical Notes * HPI (History of Present Illness) Category Sub-Category Detail Notes Category Not es Depression screening PHQ-9 Little inte rest or pleasure in doing things: Several days Feeling down, depressed, or hopeless: Se veral days Trouble falling or staying asleep, or sl eeping too much: Several days Feeling tired or having little energy: N ot at all Poor appetite or overeating: Not at all Feeling bad about yourself o r that you are a failure, or have let yourself or your family down: Not at all Trouble concentrating on thi ngs, such as reading the newspaper or watching television: Not at all Moving or speaking so slowly that other people could have noticed; or the opposite, being so fidgety or restless that you have been moving around a lot more than usual: Not at all Thoughts that you would be b seven off or of hurting yourself in some way: Not at all Total Score: 3 Interpretation: Minimal Depression Intervention Depression Screening Findings: N egative Suicide Risk Assessment Performed: ____ Depression Screening LYNNE-7 (2018 Edition) Feelin g nervous, anxious, or on edge: Not at all Not being able to stop or control worryi ng: Not at all Worrying too much about different things : Not at all Trouble relaxing: Several days Being so restless that it is hard to sit still: Not at all Becoming easily annoyed or irritable: No t at all Feeling afraid as if something awful aba ht happen: Not at all Total LYNNE-7 Score: 1 Interpretation of Total: (0 to 4) No Anx iety Examination Category Sub-Category Detail Notes Category Not es Psychiatry Appearance: well-groomed Attitude: cooperative Attention: normal in conversati on Orientation: awake, alert and josefa ented x 3 Affect / mood: appropriate Speech / language: appropriate pitch/mo dulation, clear and coherent, normal rate, volume, and articulation (RVR), proper grammar used Insight: good Judgement: good Thought process: intact Thought content: appropriate Suicidal ideation: none Homicidal ideation: none Intellectual functioning: no impairment noted Memory status: no impairment noted Gait uses a cane
--- OUTSIDE RECORDS SUMMARY | 2024-10-20 18:25 | XMS_ITS | Clinical Summary ---
Author Organization [facility] Address [address] [place] [address] Care Team Providers Care Application Tester Name Role Phone Axel Price MD Primary Care Provider Allergies Active Allergy Reactions Criticality Noted Date Comments Bupropion Hcl Shortness of breath High 12/19/2017 Cephalexin Diarrhea,Nausea And Vomiting,Other (See comments),Unknown Low 02/15/2015 Reaction: Diclofenac Unknown 03/15/2016 Fexofenadine Other (See comments),Hives Medium 018 Reaction: Lisinopril Swelling Medium Oxybutynin Unknown,Shortness of breath High 03/15/20 16 Paroxetine Other (See comments) Low Reaction: Other Tizanidine Other (See comments) Low Reaction: Other Medications fenofibrate (FENOGLIDE) 120 mg tablet 1 tablet (120 mg total) daily Active cyclobenzaprin e (FLEXERIL) 10 mg tablet Take 1 tablet (10 mg total) by mouth 3 (three) times a day as needed Active lancets (freestyle) 28 gauge misc 4 times daily MDD:4 TDD:4 02/07/20 16 Active blood-glucose meter (FREESTYLE LITE METER) kit USE DIRECTED. 02/07/20 16 Active insulin syringe-needle U-100 (INSULIN SYRINGE) 1 mL 29 gauge x 1/2 syringe 07/13/20 09 Active acetaminophen (TYLENOL) 500 mg tablet Take 1 tablet (500 mg total) by mouth every 6 hours as needed Active marlin rkn-nxc-[id number]-[id number]- copy supervisor-man-bor 250-40-125 mg-mg-unit tablet Take by mouth. 06/20/20 17 Active cyanocobalamin (Vitamin B-12) 1,[address] under the tongue daily. Active hydrALAZINE (APRESOLINE) 50 mg tabletIndicati ons:hypertensi on Take 1 tablet (50 mg total) by mouth 3 (three) times a day Active montelukast (SINGULAIR) 10 mg tablet Take 10 mg by mouth nightly Active naloxone (NARCAN) 4 mg/actuation spray,non-aero [place] SPRAY ONCE into nostril FOR opioid emergency. REPEAT IN 2-3 minutes. call 911 11/30/19 18 Active valsartan (DIOVAN) 40 mg tablet Take 1 tablet (40 mg total) by mouth daily Active atorvastatin (LIPITOR) 20 mg tablet Take 1 tablet (20 mg total) by mouth Active calcium citrate-vitami n D3 (CITRACAL WITH D) 315-250 mg-unit per tablet Take by mouth daily. Active hydroCHLOROthi azide (HYDRODIURIL) 25 mg tablet Take 1 tablet (25 mg total) by mouth daily Active loratadine (CLARITIN) 10 mg tablet Take 1 tablet (10 mg total) by mouth daily Active metoprolol XL (TOPROL-XL) 25 mg 24 hr tablet Take 1 tablet (25 mg total) by mouth daily Active mirabegron ER (MYRBETRIQ) 25 mg tablet extended release 24 hr Take 2 tablets (50 mg total) by mouth daily Active venlafaxine (EFFEXOR) 75 mg tablet Take 1 tablet (75 mg total) by mouth 3 times daily Active omega 4-fyr-gjo-fish oil (OMEGA-3) 350 mg-235 mg- 90 mg-597 mg capsule,delaye d release(DR/EC) Take by mouth 07/16/20 18 Active busPIRone (BUSPAR) 5 mg tabletIndicati ons:Generalize d Anxiety Disorder Take 1 tablet (5 mg total) by mouth daily Active oxyCODONE-acet aminophen (PERCOCET) 5-325 mg per tabletIndicati ons:Pain Take 1 tablet by mouth every 4 (four) hours as needed for pain 20 tablet 06/24/20 20 Active Additional Information Patient not taking.Reported on 03/12/2023 losartan (COZAAR) 25 mg tablet losartan 25 mg tablet Active doxycycline (doxycycline) 100 mg capsule doxycycline hyclate 100 mg tablet Active collagenase (SantyL) ointment Active amoxicillin (amoxicillin) 500 mg tablet/capsule amoxicillin 500 mg capsule Active clindamycin (CLEOCIN) 300 mg capsule TAKE 1 CAPSULE BY MOUTH EVERY 8 HOURS 11/10/19 21 Active docusate sodium (COLACE) 100 mg capsule 09/29/19 21 Active latanoprost (XALATAN) 0.005 % ophthalmic solution 11/08/19 21 Active omega-3 fatty acids (LOVAZA) 1 gram capsule 12/02/[address] (PROTONIX) 40 mg EC tablet 09/29/19 21 Active aspirin 81 mg enteric coated tablet 03/01/20 23 Active FLUoxetine (PROzac) 40 mg capsule 03/01/20 23 Active HYDROmorphone, bulk, (DILAUDID) 100 % powder 0 02/12/20 23 Active glucagon (BAQSIMI) 3 mg/actuation spray,non-aero solIndications :hypoglycemic disorder Administer 1 spray (3 mg total) into one nostril as needed (severe hypoglycemia, repeat in 15 mins if needed with new device) 2 each 03/12/20 23 Active blood-glucose transmitter (Dexcom G6 Transmitter) device Use as directed 3 each 03/12/20 23 Active blood-glucose meter,continuo us (Dexcom G6 Toxics Program Officer) misc Use as directed 1 each 03/12/20 23 Active blood-glucose meter,continuo us (Dexcom G7 Toxics Program Officer) miscIndication s:Type 2 diabetes mellitus with diabetic polyneuropathy , with long-term current use of insulin (HCC) Please use receivers to monitor blood glucose levels continuously. 1 each 03/20/20 23 Active blood-glucose sensor (Dexcom G7 Sensor) deviceIndicati ons:Type 2 diabetes mellitus with diabetic polyneuropathy , with long-term current use of insulin (HCC) Will use 3 sensors per month to check blood sugar continuously. 3 each 01/13/20 24 Active LANTUS 100 unit/mL (3 mL) pen for injectionIndic ations:Type 2 diabetes mellitus with diabetic polyneuropathy , with long-term current use of insulin (HCC) Inject 55 units under the skin twice daily. 105 mL 3 04/22/20 24 Active empagliflozin (JARDIANCE) 10 mg tabletIndicati ons:Type 2 diabetes mellitus with diabetic polyneuropathy , with long-term current use of insulin (HCC) Take 1 tablet (10 mg total) by mouth daily 90 tablet 3 04/22/20 24 Active empagliflozin (JARDIANCE) 10 mg tabletIndicati ons:Type 2 diabetes mellitus with diabetic polyneuropathy , with long-term current use of insulin (HCC) Take 1 tablet (10 mg total) by mouth daily 3 tablet 04/22/20 24 Active FreeStyle Lite Strips stripIndicatio ns:Type 2 diabetes mellitus with diabetic polyneuropathy , with long-term current use of insulin (HCC) Use to check blood glucose levels 3 times daily. 300 each 3 10/16/19 25 Active pen needle, diabetic (Unifine Pentips) 32 gauge x 5/32 needleIndicati ons:Type 2 diabetes mellitus with diabetic polyneuropathy , with long-term current use of insulin (HCC) Use twice daily with insulin pen 200 each 3 10/21/19 25 Active pen needle, diabetic (Easy Comfort Pen Divide) 31 gauge x 5/16 needle Use twice daily with insulin pen 200 each 3 06/14/20 20 025 Discontinued(R eorder) FreeStyle Lite Strips strip Check glucose 3-4 daily 350 each 3 09/15/19 25 025 Discontinued(R eorder) pen needle, diabetic (Easy Comfort Pen Divide) 31 gauge x 5/16 needleIndicati ons:Type 2 diabetes mellitus with diabetic polyneuropathy , with long-term current use of insulin (HCC) Use twice daily with insulin pen 200 each 3 10/16/19 25 025 Discontinued Active Problems Problem Noted Date Diagnosed Date Chronic pain syndrome 06/03/2020 Overview (06/03/2020): Added automatically from request for surgery [id number] Subclinical hypothyroidism 07/08/2018 Assessment & Plan (07/08/2018 3:12 PM SUBWAY GUARD): Clinically euthyroid w/o treatment and last TSH normal 3.28 and may be age related elevation previously. -monitor with period TFT Mixed hyperlipidemia 07/08/2018 Assessment & Plan (07/08/2018 3:13 PM SUBWAY GUARD): LDL 57 excellent control on lipitor TG at goal 12/2017 on lovaza 4g Iron deficiency anemia 07/08/2018 Assessment & Plan (07/08/2018 3:13 PM SUBWAY GUARD): Pt has been evaluated by hematology and appropriate work up performed HTN (hypertension), benign 12/19/2017 Major depression 12/19/2017 Spinal stenosis 12/19/2017 Type 2 diabetes mellitus wit h neurologic complication, with long-term current use of insulin 02/15/2015 Assessment & Plan (07/08/2018 3:12 PM SUBWAY GUARD): Controlled A1c 7.4, but may be discrepant as she had history of anemia. However, she does not have frequent hypoglycemic episodes and can continue on her current regimen. -Cont Lantus 60units BID, metformin 1000 mg BID, jardiance 25 mg today -BP: at goal -Microalbuminuria: 44 on losartan and jardiance -LDL 57 on lipitor -Seen by optho-no retinopathy -Has neuropathy but seeing podiatry Overactive bladder 03/03/2014 Increased frequency of urination 11/01/2010 Stress incontinence of urine 11/01/2010 Urinary urgency 11/01/2010 Renal cell carcinoma 08/20/2007 Encounters Date Type Department Care Team Description 10/20/2024 Telephone [facility] Endocrinology Metabolism and Lipid [address] [facility] [address] [place] [address] [place] [phone] Dago Garza, ROLA 09/15/2024 Telephone [facility] Endocrinology Metabolism and Lipid [address] [facility] [address] [place] [address] [place] [phone] Varsha Blanco RMA 09/07/2024 Telephone [facility] Endocrinology Metabolism and Lipid [address] [facility] [address] [place] [address] Dago Garza, ROLA 09/07/2024 Telephone [facility] Endocrinology Metabolism and Lipid [address] [facility] [address] [place] [address] Dago Garza RN from Last 3 Months Immunizations Immunization Administration Dates Next Due Influenza, Unspecified 04/09/2020 Surgical History Surgery Date Site/Laterality Comments BLADDER SUSPENSION Mid-Urethral Sling Operation - 01/30/11 (Added by TW Conv) CARPAL TUNNEL RELEASE Bilateral FRACTURE SURGERY left hand CHOLECYSTECTOMY HYSTERECTOMY Medical History Medical History Date Comments Hx Other Medical kidney cancer Anxiety disorder Anxiety Hypertension Hypertension Depression Depression Hyperlipidemia Hyperlipidemia Personal history of other en docrine, nutritional and metabolic disease History of diabetes mellitus - (Added by TW Conv) Personal history of other di seases of the circulatory system History of hypertension - (A dded by TW Conv) Anxiety disorder Anxiety - (Adde d by TW Conv) Personal history of other me ntal and behavioral disorders History of depression - (Add ed by TW Conv) Personal history of transien t ischemic attack (TIA), and cerebral infarction without residual deficits History of transient cerebra l ischemia - (Added by [employer] Conv) Cancer (HCC) Sleep apnea GERD (gastroesophageal reflux disease) Type 2 diabetes mellitus (HCC) Cerebrovascular accident (CVA) (HCC) Family History Medical History Relation Name Comments Thyroid disease Daughter Family histo ry of thyroid problem - (Added by TW Conv) Heart disease Father Family history of cardiac disorder - (Added by [employer] Conv) Cancer Other 1 Family history of Cancer; Heart disease Other 2 Family history of Heart disease; Stroke Other 3 Family history of Stroke; Thyroid disease Sister Family histo ry of thyroid problem - (Added by TW Conv) Heart disease Son Family history of cardiac disorder - (Added by [employer] Conv) Relation Name Status Comments Daughter Father Other 1 Other 2 Other 3 Sister Son Social History Tobacco Use Types Packs/Day Years Used Date Smoking Tobacco: Former Cigarettes Q uit: 2005 Tobacco Cessation:Counseling Given: Not Answered Alcohol Use Standard Drinks/Week Comments Not Currently 0 (1 standard drink = 0.6 oz pur e alcohol) Comments Unknown Sex and Gender Information Value Date Recorded Sex Assigned at Not on file Legal Sex Female 2:40 AM SUBWAY GUARD Gender Identity Not on file Sexual Orientation Not on file Obstetrics History Last Filed Vital Signs Vital Sign Reading Time Taken Comments Blood Pressure 111/44 04/14/2024 1:21 PM CDT Pulse 56 04/14/2024 1:21 PM CDT Temperature 37.4 C (99.4 F) 04/14/2024 1:21 PM CDT Respiratory Rate 18 06/25/2020 7:55 AM SUBWAY GUARD Oxygen Saturation 94% 06/25/2020 7:55 AM SUBWAY GUARD Inhaled Oxygen Concentration - - Weight 78.3 kg (172 lb 9.6 oz) 04/14/2024 1:21 P M CDT Height 168.4 cm (5' 6.3 ) 04/14/2024 1:21 PM CDT Body Mass Index 27.61 04/14/2024 1:21 PM CDT Plan of Treatment Health Maintenance Due Date Last Done Comments Albumin Creatinine Ratio, Urine 1950 Breast Cancer Screening-Mammogram 1950 Colon Cancer Screening-Colonoscopy 1950 Depression Screening 1950 Hepatitis C Screening 1950 Osteoporosis Screening-Bone Density Scan 1950 Dilated Eye Exam 1950 Foot Exam 1950 DTaP/Tdap/Td Vaccine (1 - Tdap) 1961 Hepatitis B Screening 1968 Pneumococcal vaccine 65+ (1 of 2 - PCV) 1969 Zoster Vaccine (1 of 2) 2000 Well Visit 65+ 2015 Fall Risk Assessment 06/25/2021 06/25/2020 Lipid Panel 03/12/2024 03/12/2023, 02/13/2017 eGFR 03/12/2024 03/12/2023 Influenza Vaccine (#1) 2024 0, 05/13/2017, 05/03/2016, Additional history exists Hemoglobin A1C 10/12/2024 04/14/2024, 08/13, 03/12/2023, Additional history exists Medical Devices Implanted Type Area [employer] Equipment Operator Device Identifier Shelf Expiration Date Model / Serial / Lot Medtronic Neuro 8637-20 Synchromed Ii .78in [place] Filter Mesh Pouch Programmable - [id number] - [id number] Implanted:Qty: 1 on 06/24/2020 by Sabrina Whiting MD at [facility] [employer] 11/23/2021 8637 -20 / [id number] / Procedures Procedure Name Priority Date/Time Associated Diagnosis Comments POCT HEMOGLOBIN A1C Routine 04/14/2024 1 :44 PM CDT Type 2 diabetes mellitus with diabetic polyneuropathy, with long-term current use of insulin (HCC) COMPREHENSIVE METABOLIC PANEL Routine 03/12/2023 2:05 PM CDT Type 2 diabetes mellitus with diabetic polyneuropathy, with long-term current use of insulin (HCC) LIPID PANEL Routine 03/12/2023 2:05 PM CDT Type 2 diabetes mellitus with diabetic polyneuropathy, with long-term current use of insulin (HCC) from Last 3 Months or Most Recently Relevant to Health Maintenance Results * POCT hemoglobin A1c (04/14/2024 1:44 PM CDT) Hemoglobin A1C, POC 8.6 4.0 - 5.6 % Blood 04/14/2024 1:44 PM CDT Aleksander Willis MD POINT OF CARE TEST ORDER ARTEMIO Final Result * (ABNORMAL) Lipid panel (03/12/2023 2:05 PM CDT) Triglycerides 160(H) <150 mg/dL [facility] Comment: Desirable: <150 mg/dL, fasting <175 mg/dL, non-fasting Persistently elevated triglycerides may enhance atherosclerotic cardiovascular disease. Total Cholesterol 123 <200 mg/dL [facility] Total HDL-C Direct 31(L) >50 mg/dL [facility] Comment: A low HDL-C may be inidcative of metabolic syndrome and enhance atherosclerotic cardiovascular disease risk. Non-HDL cholesterol 92 <220 mg/dL [facility] Friedewald LDL Chol 60 <190 mg/dL [facility] Comment: The inaccuracy of the Friedewald equation at LDL Cholesterol less than 70 mg/dL has been documented. Various other calculations are under investigation, such as Wai Betts et al. RENETTA Cardiol. 2020;5(5):540-548 or Krishna SS et al. RENETTA Cardiol. 2018;3(8):749-753. Consider the use of non-HDL-c to estimate atherosclerotic cardiovascular disease risk. The Friedewald equation is accurate in most patients when triglycerides are less than 150 mg/dL. Consider the use of non-HDL-C or Apo B to help estimate atherosclerotic cardiovascular diesase risk if triglycerides are elevated. Blood 03/12/2023 2:05 PM CDT 03/12/2023 3:33 PM CDT Narrative [facility] - 03/12/2023 4:19 PM CDT Current interpretive data was last updated July 14, 2021. For adults ages 40-79, the ACC/AHA recommends discussing your 10-year atherosclerotic cardiovascular disease risk with your health care provider. [email or web address]://www.acc.org/ASCVDApp us Urbano Childers MD LAB BLOOD ORDERABLES Final Resu lt [facility] * (ABNORMAL) Comprehensive metabolic panel (03/12/2023 2:05 PM CDT) Total Protein 6.7 6.1 - 8.4 g/dL [facility] Albumin 3.8 3.5 - 5.2 g/dL [facility] Calcium 9.3 8.6 - 10.3 mg/dL [facility] BUN 23 7 - 23 mg/dL [facility] Total Bilirubin 0.25 0.20 - 1.40 mg/dL [facility] Alk Phos, Total 75 35 - 129 IU/L [facility] AST (SGOT) 10(L) 11 - 47 IU/L [facility] ALT (SGPT) 10 6 - 53 IU/L [facility] Creatinine 1.06 0.60 - 1.10 mg/dL [facility] Sodium 137 135 - 145 mmol/L [facility] Potassium 4.8 3.3 - 5.1 mmol/L [facility] Chloride 99 95 - 107 mmol/L [facility] CO2 Content 26 21 - 29 mmol/L [facility] Glucose 270(H) 64 - 99 mg/dL [facility] Comment: NONFASTING GLUCOSE RANGE = 64-199 mg/dL FASTING GLUCOSE 64 - 99 = NORMAL FASTING GLUCOSE 100 - 125 = IMPAIRED FASTING GLUCOSE FASTING GLUCOSE >=126 = PROVISIONAL DIAGNOSIS OF DIABETES eGFR 55.8(L) >60.0 mL/min/1.7 3 m2 [facility] Blood 03/12/2023 2:05 PM CDT 03/12/2023 3:33 PM CDT us Urbano Childers MD LAB BLOOD ORDERABLES Final Resu lt [facility] from Last 3 Months or Most Recently Relevant to Health Maintenance Insurance MEDICARE [employer] MEDICARE FOR LIFE Advance Directives For more information, please contact: [phone] * Full Code (Latest Code Status on File) Date Activated Date Inactivated Comments 06/24/2020 4:31 PM 06/25/2020 3:40 PM Care Teams Application Tester Relationship Specialty Start Date End Date Axel Price MD [address] [facility] [address] [place] [address] PCP - General 02/05/17
--- OUTSIDE RECORDS SUMMARY | 2024-10-20 18:25 | XMS_ITS ---
Author Organization [facility] Address [address] [place] [address] Care Team Providers Care Technical Training Instructor Name Role Phone Axel Price MD Primary Care Provider UnavailKrissy Clay Unavailable [phone] Mel Reed Unavailable [phone] REASON FOR VISIT Depressed mood, Anxiety, Family system stressors Medications Medication SIG (Take, Route, Frequency, Duration) Notes Start Date End Date Status Valsartan 40 MG 1 tablet Orally Twic e a day Active Aspirin 81 81 MG 1 tablet Orally Once a day Active Vitamin B12 100 MCG as directed Orally Active Compazine Active Silver - as directed Externally Active FLUoxetine HCl 40 MG 1 capsule Oral Once a day for 90 days 12/17/2023 Active busPIRone HCl 10 MG 1 tablet Oral three times a day for 90 days 02/28/2024 03/31/2025 Active Myrbetriq 50 MG Oral 12/17/2023 Act emely Docusate Sodium 100 MG Oral 12/17/2023 Active Jardiance 10 MG Oral 12/17/2023 Act emely Loratadine 10 MG Oral 12/17/2023 Ac tive Atorvastatin Calcium 20 MG Oral 12/17/2023 Active Metoprolol Succinate ER 50 MG Oral 12/17/2023 Active Cyclobenzaprine HCl 5 MG Oral 12/17/2023 Active Ueiry-6-melf Ethyl Esters 1 GM Oral 12/17/2023 Active hydroCHLOROthiazide 25 MG Oral 12/17/2023 Active Pantoprazole Sodium 40 MG Oral 12/17/2023 Active Latanoprost 0.005 % Ophthalmic 12/17/2023 Active Ferrous Sulfate 325 (65 Fe) MG 1 tablet Orally Three times a Week Active Ascorbic Acid 500 MG 1 tablet Orally Onc e a day Active Calcium Carbonate 1250 (500 Ca) MG 1 tablet with food Orally Twice a day Active Lantus 100 UNIT/ML as directed Subcutaneous Active Social History Tobacco Use: Social History [...] Do you have a medical power of state's attorney?: No Encounters Encounter Location Date Provider Diagnosis [facility] [address] [place] [address] 10/20/2024 Mel Reed Major depressive disorder, recurrent, moderate F33.1 and Generalized anxiety disorder F41.1 Assessments Encounter Date Diagnosis (ICD Code) Assessment Notes Treatment Notes Treatment Clinical Notes Section Notes 10/20/2024 Major depressive disorder, recurrent, moderate (ICD-10 - F33.1) 10/20/2024 Generalized anxiety disorder (ICD-10 - F41.1) Plan Of Treatment Next Appt Details Follow Up: 2 Weeks, Reason: Provider Name:Mel Reed, 11/20/2024 10:00:00 AM, [address], [facility] [address], [place], [address], Provider Name:Krissy Daniel yaneli, 01/20/2025 11:00:00 AM, [address], [address], [place], [address], Progress Notes * IRENE MUNGUIADOB:1949 (74 yo F)Acc No.[id number]:10/20/2024 Patient: IRENE YAN Provider: Conor REED LCSW :1950 A ge:74 Y S ex:Female Date:10/20/2024 Address:[address] [place], [place] [id number] Pcp:Axel Price MD Data: * Time Tracker: * Date Start Time End Time Duration User Type Captured By Mode Notes 10/20/2024 09:11 AM 10:05 AM 00:53:19 Therapist Mel Reed Drake er * Chief Complaints: * 1 . Depressed mood. 2. Anxiety. 3. Family system stressors. * HPI: P sychotherapy Information: DATE: 20 October 2024 CHIEF COMPLAINT: SYMPTOMS: Worry; frustration; SEVERITY: moderate to severe CONTEXT: CL. finally got detrmination for [place] benefit for 's . Still experiencing stress associated with political situation- has been trying to distract from situation by watching [employer] Bang Theory reruns. Hoping to have an opportunity to do much needed home repairs. INTERVENTION: During this session, clinician encouraged Cl. to discuss and process thoughts and feelings related to family system stressors f or purpose of gaining insight. Clinician provided support and validation where appropriate. RESPONSE: Cl. participated actively in discussion and provided relevant feedback. Cl. is making good progress. PLAN: See Treatment Plan. * Family History: P atepatsyl Grandmother: Diabetes mellitus . S ister: Hypothyroidism , Malignant neoplastic disease . * Social History: T obacco Use: T obacco Control (Standard) T obacco use: F ormer smoker M igrated Social History: M igrated Social History: Alcohol Intake: Occasional 04/24/2022,Tobacco Years: Former smoker 04/10/2022,Smoking Status: 40 08/14/2023. S ubstance Use Do you or have [...] Do you have a medical power of state's attorney?: No. * Medications: T aking Valsartan [...] hydroCHLOROthiazide 25 MG Tablet Oral , Taking [id number] Ethyl Esters 1 GM Capsule Oral , [...] reviewed and reconciled with the patient * Examination: P sychiatry: Appearance: w ell-groomed. Affect / mood: a ppropriate. Attention: n ormal in conversation. Attitude: c ooperative. Homicidal ideation: n one. Suicidal ideation: n one. Insight: g ood. Intellectual functioning: n o impairment noted. Judgement: g ood. Orientation: a wake, alert and oriented x 3. Speech / language: a ppropriate pitch/modulation, clear and coherent, normal rate, volume, and articulation (RVR), proper grammar used. Thought content: a ppropriate. Thought process: i ntact. Assessment: * Assessment: 1. M ajor depressive disorder, recurrent, moderate - F33.1 (Primary) 2 . G eneralized anxiety disorder - F41.1 Plan: * Treatment: * Procedure Codes: 9 0837 PSYCHOTHERAPY W/PATIENT 60 MINUTES, G8432 CLIN DEPRESSION SCREEN NOT D, 1036F TOBACCO NON-USER * Follow Up: 2 Weeks * Billing Information: * Visit Code: * Procedure Codes: 84321 PSYCHOTHERAPY W/PATIENT 60 MINUTES. G8432 CLIN DEPRESSION SCREEN NOT D. 1036F TOBACCO NON-USER. * Sign off status: Completed Signatures: No Ad Hoc Signature Added true * Provider: Conor REED, CONTINUOUS LOFT OPERATOR Date: 0 10/20/2024 Generated for Dave edmonds/Chapis/Sharon on: 0 10/20/2024 06:24 PM CDT History and Physical Notes * HPI (History of Present Illness) Category Sub-Category Detail Notes Category Not es Psychotherapy Information DATE: 20 October 2024 CHIEF COMPLAINT: SYMPTOMS: Worry; frustration; SEVERITY: moderate to severe CONTEXT: CL. finally got detrmination for VA benefit for 's . Still experiencing stress associated with political situation- has been trying to distract from situation by watching [employer] Bang Theory reruns. Hoping to have an opportunity to do much needed home repairs. INTERVENTION: During this session, clinician encouraged Cl. to discuss and process thoughts and feelings related to family system stressors for purpose of gaining insight. Clinician provided support and validation where appropriate. RESPONSE: Cl. participated actively in discussion and provided relevant feedback. Cl. is making good progress. PLAN: See Treatment Plan Examination Category Sub-Category Detail Notes Category Not [...]
--- OUTSIDE RECORDS SUMMARY | 2024-10-20 18:25 | XMS_ITS | Clinical Summary ---
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 OPERATOR Gender Identity Not on file Sexual Orientation Not on file Plan of Treatment Health Maintenance Due Date Last Done Comments Colorectal Cancer Screening Colonoscopy (10 Years) 1950 Hepatitis C 1968 DTaP, Tdap and Td Vaccines ( 1 - Tdap) 1969 Mammogram Screening 1990 Zoster Vaccines (1 of 2) 2000 Dexa Scan (General) 2015 Pneumococcal Vaccine: 65+ Ye ars (1 of 1 - PCV) 2015 COVID-19 Vaccine (2023-2 5 season) 2024 Influenza Adult (#1) 2024 RSV Immunization or 60+ Years (1 - 1-dose 75+ series) 2025 Meningococcal B Vaccine Aged Out No l onger eligible based on patient's age to complete this topic Meningococcal Vaccine Aged Out No neymar mauro eligible based on patient's age to complete this topic RSV Immunizations Under 20 Months Aged Out No longer eligible based on patient's age to complete this topic
--- OUTSIDE RECORDS SUMMARY | 2024-10-20 18:25 | XMS_ITS | Referral Summary ---
Author Organization [facility] Address [address] [place] [address] Care Team Providers Care Refrigeration Plant Cork Insulator Name Role Phone Axel Price MD Primary Care Provider Encounters Date Type Department Care Team Description 10/20/2024 Telephone [facility] Endocrinology Metabolism and Lipid [address] [facility] Advanced Medicine 5th [place] [address] [place] [phone] Dago Garza, RN 09/15/2024 Telephone [facility] Endocrinology Metabolism and Lipid [address] [facility] 5th [place] [address] [place] [address] Varsha Blanco RMA 09/07/2024 Telephone [facility] Endocrinology Metabolism and Lipid [address] [facility] [address] [place] [phone] Dgao Garza, RN 09/07/2024 Telephone [facility] Endocrinology Metabolism and Lipid 1 [facility] [address] [place] [phone] Dago Garza, RN from Last 3 Months Allergies Active Allergy Reactions Criticality Noted Date [...] every 6 hours as needed Active marlin wyf-vyw-G2-Zn- copy lathe operator-man-bor 250-40-125 mg-mg-unit tablet Take by mouth. 06/20/20 [...] by mouth 3 times daily Active omega 2-pzk-wgs-fish oil (OMEGA-3) 350 mg-235 mg- 90 mg-597 [...] Transmitter) device Use as directed 3 each 3 03/12/20 23 Active blood-glucose meter,continuo us (Dexcom G6 Acute Care Nurse) misc Use as directed 1 each 03/12/20 23 Active blood-glucose meter,continuo us (Dexcom G7 Acute Care Nurse) miscIndication s:Type 2 diabetes mellitus with diabetic [...] , with long-term current use of insulin ([facility]) Inject 55 units under the skin twice [...] Active pen needle, diabetic (Easy Comfort Pen [place]) 31 gauge x 5/16 needle Use twice daily with insulin pen 200 each 3 06/14/20 20 025 Discontinued(R eorder) FreeStyle Lite Strips strip Check glucose 3-4 daily 350 each 3 09/15/19 25 025 Discontinued(R eorder) pen needle, diabetic (Easy Comfort Pen [place]) 31 gauge x 5/16 needleIndicati ons:Type 2 diabetes mellitus with diabetic polyneuropathy , with long-term current use of insulin (HCC) Use twice daily with insulin pen 200 each 3 10/16/19 25 025 Discontinued Active Problems Problem Noted Date Diagnosed Date Chronic pain syndrome 06/03/2020 Overview (06/03/2020): Added automatically from request for surgery [id number] Subclinical hypothyroidism 07/08/2018 Assessment & Plan (07/08/2018 3:12 PM CIVIL ENGINEERING PROFESSOR): Clinically euthyroid w/o treatment and last TSH normal 3.28 and may be age related elevation previously. -monitor with period TFT Mixed hyperlipidemia 07/08/2018 Assessment & Plan (07/08/2018 3:13 PM CIVIL ENGINEERING PROFESSOR): LDL 57 excellent control on lipitor TG at goal 12/2017 on lovaza 4g Iron deficiency anemia 07/08/2018 Assessment & Plan (07/08/2018 3:13 PM CIVIL ENGINEERING PROFESSOR): Pt has been evaluated by hematology and appropriate work up performed HTN (hypertension), benign 12/19/2017 Major depression 12/19/2017 Spinal stenosis 12/19/2017 Type 2 diabetes mellitus wit h neurologic complication, with long-term current use of insulin 02/15/2015 Assessment & Plan (07/08/2018 3:12 PM CIVIL ENGINEERING PROFESSOR): Controlled A1c 7.4, but may be discrepant [...] Urinary urgency 11/01/2010 Renal cell carcinoma 08/20/2007 Immunizations Immunization Administration Dates Next Due Influenza, Unspecified 04/09/2020 Social History Tobacco Use Types Packs/Day Years Used Date Smoking Tobacco: Former Cigarettes Q uit: 2005 Tobacco Cessation:Counseling Given: Not Answered Alcohol Use Standard Drinks/Week Comments Not Currently 0 (1 standard drink = 0.6 oz pur e alcohol) Comments Unknown Sex and Gender Information Value Date Recorded Sex Assigned at Not on file Legal Sex Female 2:40 AM CIVIL ENGINEERING PROFESSOR Gender Identity Not on file Sexual Orientation Not on file Last Filed Vital Signs Vital Sign Reading Time Taken Comments Blood Pressure 111/44 04/14/2024 1:21 PM CDT Pulse 56 04/14/2024 1:21 PM CDT Temperature 37.4 C (99.4 F) 04/14/2024 1:21 PM CDT Respiratory Rate 18 06/25/2020 7:55 AM CIVIL ENGINEERING PROFESSOR Oxygen Saturation 94% 06/25/2020 7:55 AM CIVIL ENGINEERING PROFESSOR Inhaled Oxygen Concentration - - Weight 78.3 kg (172 lb 9.6 oz) 04/14/2024 1:21 P M CDT Height 168.4 cm (5' 6.3 ) 04/14/2024 1:21 PM CDT Body Mass Index 27.61 04/14/2024 1:21 PM CDT Plan of Treatment Not on file Medical Devices Implanted Type Area Skin Drier Device Identifier Shelf Expiration Date Model / Serial / Lot Medtronic Neuro 8637-20 Synchromed Ii .78in [place] Filter Mesh Pouch Programmable - [id number] - [id number] Implanted:Qty: 1 on 06/24/2020 by Sabrina Whiting MD at [facility] [employer] 11/23/2021 8637 -20 / [id number] / Procedures Procedure Name Priority Date/Time Associated [...] 2:05 PM CDT) Triglycerides 160(H) <150 mg/dL [facility] Comment: Desirable: <150 mg/dL, fasting <175 mg/dL, non-fasting Persistently elevated triglycerides may enhance atherosclerotic cardiovascular disease. Total Cholesterol 123 <200 mg/dL [facility] Total HDL-C Direct 31(L) >50 mg/dL [facility] Comment: A low HDL-C may be inidcative of metabolic syndrome and enhance atherosclerotic cardiovascular disease risk. Non-HDL cholesterol 92 <220 mg/dL [facility] Friedewald LDL Chol 60 <190 mg/dL [facility] Comment: The inaccuracy of the Friedewald equation at LDL Cholesterol less than 70 mg/dL has been documented. Various other calculations are under investigation, such as Wai Betts, et al. RENETTA Cardiol. 2020;5(5):540-548 or Krishna [...] PM CDT 03/12/2023 3:33 PM CDT Narrative [facility] - 03/12/2023 4:19 PM CDT Current interpretive data was last updated July 14, 2021. For adults ages 40-79, the ACC/AHA recommends discussing your 10-year atherosclerotic cardiovascular disease risk with your health care provider. [email or web address].org/ASCVDApp us Urbano Childers MD LAB BLOOD ORDERABLES Final Resu lt [facility] * (ABNORMAL) [...] Recently Relevant to Health Maintenance [place] [address] [employer] MEDICARE FOR LIFE Advance Directives For more information, please contact: [phone] * Full Code (Latest Code Status on File) Date Activated Date Inactivated Comments 06/24/2020 4:31 PM 06/25/2020 3:40 PM Care Teams Refrigeration Plant Cork Insulator Relationship Specialty Start Date End Date Axel Price MD [address] [facility] [address] [place] [address] PCP - General 02/05/17
--- OUTSIDE RECORDS SUMMARY | 2024-10-20 18:25 | XMS_ITS | Encounter Summary ---
Author Organization [facility] Address [address] [place] [address] Phone Care Team Providers Care Cloud Systems Architect Name Role Phone Axel Price MD Primary Care Provider Encounter Details Date Type Department Care Team (Late st Contact Info) Description 09/07/2024 Telephone [facility] Endocrinology Metabolism and Lipid [address] [facility] [address] [place] [address] Dago Garza RN Social History Tobacco Use Types Packs/Day Years Used Date Smoking Tobacco: Former Cigarettes Q uit: 2005 Alcohol Use Standard Drinks/Week Comments Not Currently 0 (1 standard drink = 0.6 oz pur e alcohol) Comments Unknown Sex and Gender Information Value Date Recorded Sex Assigned at Not on file Legal Sex Female 2:40 AM EDUCATION ASSISTANT Gender Identity Not on file Sexual Orientation Not on file documented as of this encounter Plan of Treatment Not on file documented as of this encounter Visit Diagnoses Not on filedocumented in this encounter Care Teams Cloud Systems Architect Relationship Specialty Start Date End Date Axel Price MD [address] [facility] [address] [place] [address] PCP - General 02/05/17 documented as of this encounter
--- OUTSIDE RECORDS SUMMARY | 2024-10-20 18:26 | XMS_ITS | Encounter Summary ---
Author Organization [facility] Address [address] [place] [address] Phone Care Team Providers Care Manager Fire Name Role Phone Axel Price MD Primary Care Provider Encounter Details Date Type Department Care Team (Late st Contact Info) Description 10/20/2024 Telephone [facility] Endocrinology Metabolism and Lipid [address] 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 Gender Identity Not on file Sexual Orientation Not on file documented as of this encounter Ordered Prescriptions Prescription Sig Dispense Quantity Refills Last Filled Start Date End Date pen needle, diabetic (Unifine Pentips) 32 gauge x 5/32 needleIndications: Type 2 diabetes mellitus with diabetic polyneuropathy, with long-term current use of insulin (HCC) Use twice daily with insulin pen 200 each 3 10/20/2024 documented in this encounter Miscellaneous Notes * Telephone Encounter - Dago Garza RN - 10/20/2024 4:12 PM CDT Incoming call from patient asking for new pen needles of 4 mm to be sent. Pt states she'd been using old needles despite same rx for past ~ 5 years. Pt states she'd used the same needle for 3 different injections already. This RN educated on importance of using new pen needle with each injection. Pt states for the 3rd injection, she noticed the needle was no longer attached and believes it may have broken off into her SQ tissue of stomach. This RN advised patient to go to urgent care for evaluation at present to see if able to remove. documented in this encounter Plan of Treatment Not on file documented as of this encounter Visit Diagnoses Diagnosis Type 2 diabetes mellitus with diabetic polyneuropathy, with long-term current use of insulin (HCC)- Primary documented in this encounter Discontinued Medications Medication Sig Discontinue Reason Start Date End Da te pen needle, diabetic (Easy Comfort Pen [place]) 31 gauge x 5/16 needleIndications:Type 2 diabetes mellitus with diabetic polyneuropathy, with long-term current use of insulin (HCC) Use twice daily with insulin pen 10/15/2024 10/20/2024 documented as of this encounter Care Teams Manager Fire Relationship Specialty Start Date End Date Axel Price MD [address] [address] PCP - General 02/05/17 documented as of this encounter
--- OUTSIDE RECORDS SUMMARY | 2024-10-20 18:26 | XMS_ITS | Encounter Summary ---
Author Organization [facility] Address [address] [place] [address] Care Team Providers Care Tone Artist Apprentice Name Role Phone Axel Price MD Primary Care Provider [phone] Encounter Details Date Type Department Care Team (Late Contact Info) Description 08/10/2022 Telephone [facility] Oncology and [facility] [address] [place] [address] Jaylen Chapin MD [address] [place] [phone] Social History Tobacco Use Types Packs/Day Years Used Date Smoking Tobacco: Former Cigarettes 1 1 5 - 2004 Smokeless Tobacco: Never Alcohol Use Standard Drinks/Week Comments No 0 (1 standard drink = 0.6 oz pur e alcohol) Comments No Sex and Gender Information Value Date Recorded Sex Assigned at Not on file Legal Sex Female 8:11 AM CDT Gender Identity Not on file Sexual Orientation Not on file COVID-19 Exposure Response Date Recorded In the last 10 days, have yo u been in contact with someone who was confirmed or suspected to have Coronavirus/COVID-19? No / Unsure 08/10/2022 10:38 AM AUDIO EXPERIENCE EXPERT documented as of this encounter Plan of Treatment Upcoming Encounters Date Type Department Care Team (Late Contact Info) Description 01/29/2025 11:00 AM CDT Office Visit [facility] Oncology and Hematology [facility] [address] [place] [address] Jason Buckley MD [address] [facility] [address] [place] [phone] Scheduled Orders Name Type Priority Associated Diagnoses Orde r Schedule CBC WITH DIFFERENTIAL Lab Routine Iron deficiency anemia secondary to inadequate dietary iron intake Expected: 08/10/2022, Expires: 08/10/2023 documented as of this encounter Visit Diagnoses Diagnosis Iron deficiency anemia secondary to inadequate dietary iron intake- Primary documented in this encounter Care Teams Tone Artist Apprentice Relationship Specialty Start Date End Date Axel Price MD [address] [facility] [address] [place] [address] PCP - General Family Practice 12/19/17 documented as of this encounter
--- OUTSIDE RECORDS SUMMARY | 2024-10-20 18:26 | XMS_ITS | Patient Health Record ---
Author Organization [facility] Address [address] [place], [place] [id number] Care Team Providers Care Associate Account Manager Name Role Phone Axel Price Unavailable Unavailable RENETTA RIVERO Unavailable [phone] ARCHIE REDD Unavailable [phone] Allergies Allergen (clinical drug ingredient) Drug/Non Drug Allergy documented on EMR Reaction Allergy Type Onset Date Status paroxetine Paxil Unknown Drug Allergy Active Wellbutrin Unknown Drug Allergy Active lisinopril Lisinopril Unknown Drug Allergy Activ e Reason For Referral No Information Vital Signs Height-cm 167.64 cm 01/16/2024 Weight-kg 74.39 kg 01/16/2024 Height 66 in 01/16/2024 Weight 164 lbs 01/16/2024 BMI 26.47 kg/m2 01/16/2024 Encounters Encounter Location Date Provider Diagnosis [facility] [address] [place], [place] [id number] 11/14/2023 ARCHIE REDD Other hammer toe(s) (acquired), right foot M20.41 ; Tinea unguium B35.1 ; Other hammer toe(s) (acquired), left foot M20.42 ; Pain in left toe(s) M79.675 ; Pain in right toe(s) M79.674 ; Unspecified atherosclerosis of circle arteries of extremities, bilateral legs I70.203 and Type 2 diabetes mellitus with diabetic peripheral angiopathy without gangrene E11.[address] [id number] 01/16/2024 ARCHIE REDD Other hammer toe(s) (acquired), right foot M20.41 ; Tinea unguium B35.1 ; Other hammer toe(s) (acquired), left foot M20.42 ; Pain in left toe(s) M79.675 ; Pain in right toe(s) M79.674 ; Unspecified atherosclerosis of circle arteries of extremities, bilateral legs I70.203 and Type 2 diabetes mellitus with diabetic peripheral angiopathy without gangrene E11.[address] [id number] 03/19/2024 ARCHIE REDD Other hammer toe(s) (acquired), right foot M20.41 ; Tinea unguium B35.1 ; Other hammer toe(s) (acquired), left foot M20.42 ; Pain in left toe(s) M79.675 ; Pain in right toe(s) M79.674 ; Unspecified atherosclerosis of circle arteries of extremities, bilateral legs I70.203 and Type 2 diabetes mellitus with diabetic peripheral angiopathy without gangrene E11.51 [facility] [place] [address] [place] [id number] 05/25/2024 RENETTA SNOOK Tinea unguium B35.1 ; Pain in right foot M79.671 ; Pain in left foot M79.672 ; Atherosclerosis of circle arteries of extremities with intermittent claudication, bilateral legs I70.213 and Acquired keratosis [keratoderma] palmaris et plantaris L85.1 [facility] [place] [address] [place] [id number] 09/07/2024 RENETTA SNOOK Tinea unguium B35.1 ; Pain in right foot M79.671 ; Pain in left foot M79.672 ; Atherosclerosis of circle arteries of extremities with intermittent claudication, bilateral legs I70.213 and Acquired keratosis [keratoderma] palmaris et plantaris L85.1 Assessments Encounter Date Diagnosis (ICD Code) Assessment Notes Treatment Notes Treatment Clinical Notes Section Notes 11/14/2023 Tinea unguium (ICD-10 - B35.1) Aseptic debridement of elongated thickened nails x 10 using sterile nippers, nails were debrided in length and thickness by 30% utilizing a nail nipper without incident. The patient was educated regarding all treatment options that include topical and oral antifungal treatments. I discussed the options of taking a sample of the nail to confirm diagnosis. Nail clippings were not sent for pathology analysis. The patient was educated why and how the fungal infection evolved in their feet and the patient was given information regarding how to prevent further infection. The patient was told to keep feet dry and change socks. The patient was told to be careful with old shoes and excessive sweating. The patient was educated regarding both OTC and prescription treatments. g 11/14/2023 Other hammer toe(s) (acquired), right foot (ICD-10 - M20.41) The patient was educated regarding how to mechanically stabilize their deformity. The patient was given education about shoe recommendations specific for the condition. The patient was educated about custom orthotics and how appropriate shoes and orthotics can prevent further worsening of the deformity. The patient was educated about how bad shoe habits can worsen the condition. NSAIDS, P.T., injections and other conservative treatments were discussed. Both surgical and non surgical treatments were discussed, but conservative options were emphasized. 01/16/2024 Tinea unguium (ICD-10 - B35.1) Aseptic debridement of elongated thickened nails x 10 using sterile nippers, nails were debrided in length and thickness by 30% utilizing a nail nipper without incident. The patient was educated regarding all treatment options that include topical and oral antifungal treatments. I discussed the options of taking a sample of the nail to confirm diagnosis. Nail clippings were not sent for pathology analysis. The patient was educated why and how the fungal infection evolved in their feet and the patient was given information regarding how to prevent further infection. The patient was told to keep feet dry and change socks. The patient was told to be careful with old shoes and excessive sweating. The patient was educated regarding both OTC and prescription treatments. g 01/16/2024 Other hammer toe(s) (acquired), right foot (ICD-10 - M20.41) The patient was educated regarding how to mechanically stabilize their deformity. The patient was given education about shoe recommendations specific for the condition. The patient was educated about custom orthotics and how appropriate shoes and orthotics can prevent further worsening of the deformity. The patient was educated about how bad shoe habits can worsen the condition. NSAIDS, P.T., injections and other conservative treatments were discussed. Both surgical and non surgical treatments were discussed, but conservative options were emphasized. 03/19/2024 Tinea unguium (ICD-10 - B35.1) Aseptic debridement of elongated thickened nails x 10 using sterile nippers, nails were debrided in length and thickness by 30% utilizing a nail nipper without incident. The patient was educated regarding all treatment options that include topical and oral antifungal treatments. I discussed the options of taking a sample of the nail to confirm diagnosis. Nail clippings were not sent for pathology analysis. The patient was educated why and how the fungal infection evolved in their feet and the patient was given information regarding how to prevent further infection. The patient was told to keep feet dry and change socks. The patient was told to be careful with old shoes and excessive sweating. The patient was educated regarding both OTC and prescription treatments. g 03/19/2024 Other hammer toe(s) (acquired), right foot (ICD-10 - M20.41) The patient was educated regarding how to mechanically stabilize their deformity. The patient was given education about shoe recommendations specific for the condition. The patient was educated about custom orthotics and how appropriate shoes and orthotics can prevent further worsening of the deformity. The patient was educated about how bad shoe habits can worsen the condition. NSAIDS, P.T., injections and other conservative treatments were discussed. Both surgical and non surgical treatments were discussed, but conservative options were emphasized. 05/25/2024 Tinea unguium (ICD-10 - B35.1) Nails 4 and 5 Bilateral were debrided extensively with nail nippers and emery board, reducing length and girth to pink healthy tissue with any subungual debris and necrotic tissue removed 05/25/2024 Pain in right foot (ICD-10 - M79.671) 09/07/2024 Tinea unguium (ICD-10 - B35.1) Nails 4 and 5 Bilateral were debrided extensively with nail nippers and emery board, reducing length and girth to pink healthy tissue with any subungual debris and necrotic tissue removed 09/07/2024 Pain in right foot (ICD-10 - M79.671) 09/07/2024 Pain in left foot (ICD-10 - M79.672) 05/25/2024 Pain in left foot (ICD-10 - M79.672) 03/19/2024 Other hammer toe(s) (acquired), left foot (ICD-10 - M20.42) 01/16/2024 Other hammer toe(s) (acquired), left foot (ICD-10 - M20.42) 11/14/2023 Other hammer toe(s) (acquired), left foot (ICD-10 - M20.42) 11/14/2023 Pain in left toe(s) (ICD-10 - M79.675) 01/16/2024 Pain in left toe(s) (ICD-10 - M79.675) 09/07/2024 Atherosclerosis of circle arteries of extremities with intermittent claudication, bilateral legs (ICD-10 - I70.213) 05/25/2024 Atherosclerosis of circle arteries of extremities with intermittent claudication, bilateral legs (ICD-10 - I70.213) 03/19/2024 Pain in left toe(s) (ICD-10 - M79.675) 05/25/2024 Acquired keratosis [keratoderma] palmaris et plantaris (ICD-10 - L85.1) A total of 3 corns or calluses, as described in the note above, were cut and pared utilizing a #15 blade 09/07/2024 Acquired keratosis [keratoderma] palmaris et plantaris (ICD-10 - L85.1) A total of 3 corns or calluses, as described in the note above, were cut and pared utilizing a #15 blade 01/16/2024 Pain in right toe(s) (ICD-10 - M79.674) 03/19/2024 Pain in right toe(s) (ICD-10 - M79.674) 11/14/2023 Pain in right toe(s) (ICD-10 - M79.674) 11/14/2023 Unspecified atherosclerosis of circle arteries of extremities, bilateral legs (ICD-10 - I70.203) Patient educated on risks and aggravating factors of PVD, including conservative treatment options such as a diet and exercise regimen to aid in slowing progression of vascular disease 01/16/2024 Unspecified atherosclerosis of circle arteries of extremities, bilateral legs (ICD-10 - I70.203) Patient educated on risks and aggravating factors of PVD, including conservative treatment options such as a diet and exercise regimen to aid in slowing progression of vascular disease 03/19/2024 Unspecified atherosclerosis of circle arteries of extremities, bilateral legs (ICD-10 - I70.203) Patient educated on risks and aggravating factors of PVD, including conservative treatment options such as a diet and exercise regimen to aid in slowing progression of vascular disease 03/19/2024 Type 2 diabetes mellitus with diabetic peripheral angiopathy without gangrene (ICD-10 - E11.51) Patient educated on proper diabetic foot care and the importance of tight glycemic control in regards to the prevention of diabetic manifestations and symptomatology in lower extremity. Explained to patient the importance of keeping interdigital spaces dry, not walking bare foot, having supportive shoe gear, using moisturizer to skin on feet daily especially in winter months, and checking feet daily for any new lesions or areas suspicious of trauma infection or ulceration. Explained to patient to return to ED if any change in foot health associated with signs of systemic infection including but not limited to nausea, vomiting, fever. 01/16/2024 Type 2 diabetes mellitus with diabetic peripheral angiopathy without gangrene (ICD-10 - E11.51) Patient educated on proper diabetic foot care and the importance of tight glycemic control in regards to the prevention of diabetic manifestations and symptomatology in lower extremity. Explained to patient the importance of keeping interdigital spaces dry, not walking bare foot, having supportive shoe gear, using moisturizer to skin on feet daily especially in winter months, and checking feet daily for any new lesions or areas suspicious of trauma infection or ulceration. Explained to patient to return to ED if any change in foot health associated with signs of systemic infection including but not limited to nausea, vomiting, fever. 11/14/2023 Type 2 diabetes mellitus with diabetic peripheral angiopathy without gangrene (ICD-10 - E11.51) Patient educated on proper diabetic foot care and the importance of tight glycemic control in regards to the prevention of diabetic manifestations and symptomatology in lower extremity. Explained to patient the importance of keeping interdigital spaces dry, not walking bare foot, having supportive shoe gear, using moisturizer to skin on feet daily especially in winter months, and checking feet daily for any new lesions or areas suspicious of trauma infection or ulceration. Explained to patient to return to ED if any change in foot health associated with signs of systemic infection including but not limited to nausea, vomiting, fever. Plan Of Treatment Next Appt Details Provider Name:RENETTA RIVERO, 02:20:00 PM, [address], [facility], [place], [place], [id number], Insurance Providers Payer Name Payer Address Payer Phone Subscriber Number Group Number Insured Name Patient Relationship to Insured Coverage Start Date Coverage End Date Medicare Part B [facility] [address] [place] [address] [id number] Ce Lewis Self - patient is the insured for Life ([employer]) [address] [place], [place] [id number] Ce Lewis Self - patient is the insured Medical (General) History Medical History History ICD Code acid reflux stroke Cancer (Kidney) anemia Open Sores Arthritis Sleep apnea Diabetic Heart Disease depression hypertension Abnormal Bleeding
--- OUTSIDE RECORDS SUMMARY | 2024-10-20 18:26 | XMS_ITS ---
Author Organization [facility] Address [address] [place], [place] [id number] Care Team Providers Care Liquefied Natural Gas Operator Name Role Phone Axel Price Unavailable Unavailable RENETTA RIVERO Unavailable [phone] Allergies Allergen (clinical drug ingredient) Drug/Non Drug Allergy documented on EMR Reaction Allergy Type Onset Date Status Paxil Unknown Drug Allergy Active Wellbutrin Unknown Drug Allergy Active lisinopril Lisinopril Unknown Drug Allergy Activ e REASON FOR VISIT Patient presents for at-risk foot care . The patient has painful toenails and calluses that are causing difficulty with ambulation and shoegear. The onset is gradual Encounters Encounter Location Date Provider Diagnosis [facility] [place] [address] [place], [place] [id number] 05/25/2024 RENETTA RIVERO Tinea unguium B35.1 ; Pain in right foot M79.671 ; Pain in left foot M79.672 ; Atherosclerosis of [place] arteries of extremities with intermittent claudication, bilateral legs I70.213 and Acquired keratosis [keratoderma] palmaris et plantaris L85.1 Assessments Encounter Date Diagnosis (ICD Code) Assessment Notes Treatment Notes Treatment Clinical Notes Section Notes 05/25/2024 Tinea unguium (ICD-10 - B35.1) Nails 4 and 5 Bilateral were debrided extensively with nail nippers and emery board, reducing length and girth to pink healthy tissue with any subungual debris and necrotic tissue removed 05/25/2024 Pain in right foot (ICD-10 - M79.671) 05/25/2024 Pain in left foot (ICD-10 - M79.672) 05/25/2024 Atherosclerosis of kobuk arteries of extremities with intermittent claudication, bilateral legs (ICD-10 - I70.213) 05/25/2024 Acquired keratosis [keratoderma] palmaris et plantaris (ICD-10 - L85.1) A total of 3 corns or calluses, as described in the note above, were cut and pared utilizing a #15 blade Plan Of Treatment Treatment Notes Assessment Notes Tinea unguium Nails 4 and 5 Bilate ral were debrided extensively with nail nippers and emery board, reducing length and girth to pink healthy tissue with any subungual debris and necrotic tissue removed Acquired keratosis [keratode rma] palmaris et plantaris A total of 3 corns or calluses, as described in the note above, were cut and pared utilizing a #15 blade Next Appt Details Follow Up: 10 - 12 weeks, Re ason: At-Risk Foot care, sooner if problems develop. Provider Name:RENETTA RIVERO, 02:20:00 PM, [address], [facility], [place], [place], [id number], Progress Notes * Randal MUNGUIARayrayB:[birth year] (73 yo F)Acc No.[id number]:05/25/2024 Patient: Ce YAN Provider: Jenniffer Rivero DPM :1950 A ge:73 Y S ex:Female Date:05/25/2024 Address:[place] [address] Subjective: * Chief Complaints: * 1 . Patient presents for at-risk foot care . The patient has painful toenails and calluses that are causing difficulty with ambulation and shoegear. The onset is gradual. * HPI: H PI: General care P atfer presents to the office for diabetic foot care. Patient states that their nails are thickened, elongated and painful. Patient states that it is aggravated by shoe gear. Onset is gradual., Patient denies taking prescription blood thinners but does take a daily aspirin., Date last seen by Dr. Price was April 2024., Initials LB. * Medical History: A pedro reflux, Stroke, Cancer (Kidney), Anemia, Open Sores, Arthritis, Sleep apnea, Diabetic, Heart Disease, Depression, Hypertension, Abnormal Bleeding. * Allergies: W ellbutrin, Lisinopril, Paxil. Objective: * Vitals: * Examination: P hysical Examination: General appearance: A lert, pleasant, well-nourished and in no acute distress. D ermatologic: Skin findings: S kin is thin, atrophic and lacking pedal hair. Hypertrophic / hyperkeratotic lesion: p lantar aspect of the left 1st metatarsal head, interphalangeal joint of the left hallux, plantar aspect of the right 1st metatarsal head. Nail pathology: N ails 4, and 5 bilateral are elongated, thick, discolored, and dystrophic with subungual debris. They are painful to palpation. ? V ascular: Dorsalis pedis pulse: 1 /4 b ilateral. Posterior tibial pulse: 0 /4 bilateral. Capillary refill: g reater than 3 seconds. Edema: N o edema bilateral. N eurologic: Gross sensation G rossly intact to light touch. There is negative Tinel's sign. M usculoskeletal: Muscle Strength M uscle strength is 5/5 in regards to dorsiflexion, plantarflexion, inversion, and eversion in bilateral lower extremities. ? Assessment: * Assessment: 1. T inea unguium - B35.1 (Primary) 2 . P ain in right foot - M79.671 ? 3 . P ain in left foot - M79.672 4 . A therosclerosis of kobuk arteries of extremities with intermittent claudication, bilateral legs - I70.213 5 . Acquired keratosis [keratoderma] palmaris et plantaris - L85.1 Plan: * Treatment: 2. A cquired keratosis [keratoderma] palmaris et plantaris Notes: A total of 3 corns or calluses, as described in the note above, were cut and pared utilizing a #15 blade * Procedure Codes: 1 1056 TRIM SKIN LESIONS, 2 TO 4, Modifiers: Q8 , 70507 TRIM NAIL(S), Modifiers: 59 , Q8 * Follow Up: 1 0 - 12 weeks (Reason: At-Risk Foot care, sooner if problems develop.) * Estebaning Information: * Visit Code: * Procedure Codes: 36243 TRIM SKIN LESIONS, 2 TO 4. Modifiers: Q8 01061 TRIM NAIL(S). Modifiers: 59, Q8 * Sign off status: Completed true * Provider: Jenniffer Rivero DPM Date: 1 Generated for Dave edmonds/Chapis/Sharon on: 0 10/20/2024 06:26 PM CDT History and Physical Notes * HPI (History of Present Illness) Category Sub-Category Detail Notes Category Not es HPI General care Patient presents to the office for diabetic foot care. Patient states that their nails are thickened, elongated and painful. Patient states that it is aggravated by shoe gear. Onset is gradual., Patient denies taking prescription blood thinners but does take a daily aspirin., Date last seen by Dr. Price was April 2024., Initials LB Examination Category Sub-Category Detail Notes Category Not es Dermatologic Skin findings: Skin is thin, at rophic and lacking pedal hair Nail pathology: Nails 4, and 5 bilat eral are elongated, thick, discolored, and dystrophic with subungual debris. They are painful to palpation Hypertrophic / hyperkeratotic lesion: pl kaylene aspect of the left 1st metatarsal head, interphalangeal joint of the left hallux, plantar aspect of the right 1st metatarsal head Neurologic Gross sensation Grossly intact t o light touch. There is negative Tinel's sign Vascular Dorsalis pedis pulse: 1/4 bilateral Edema: No edema bilateral Capillary refill: greater than 3 secon ds Posterior tibial pulse: 0/4 bilateral Physical Examination General appearance: Alert, pleasant, well-nourished and in no acute distress Musculoskeletal Muscle Strength Muscle strength is 5/5 in regards to dorsiflexion, plantarflexion, inversion, and eversion in bilateral lower extremities
--- OUTSIDE RECORDS SUMMARY | 2024-10-20 18:26 | XMS_ITS | Continuity of Care Document ---
Author Organization [facility] Address [address] [place] [address] Phone Care Team Providers Care Waste Management Engineer Name Role Phone [facility] Unavailable Unavail able Belen Webster Unavailable Unavailable Procedures Procedure Date Vision Svcs Frames Purchases Progressive Lens, Polycarb Anti-reflective Coating Tax - Medical Eye Exam & Treatment Refraction Office/outpatient Visit, Est Eye Exam Established Pt Eye Exam & Treatment Refraction Advance Directives Directive Yes / No Effective Date File Name No Information Encounters Encounter Description Practice Location Reason(s) For Visit Diagnoses Date Provider Providers Copied on Encounter [facility], [address] [place] [address] [address], [place], [place], [id number], [place] tel:[phone] [facility] No Information 7 9 [facility] . [address] [facility], [facility] [address], [place], [address], [place]. tel:[phone] Referring Provider: Ernie Perdomo, [address], [place], [address]. tel:[phone] magana Provider: Belen Webster, [address] [facility], [place], [address]. tel:[phone] [facility], [address], [place], [place], [address], [place] tel:[phone] [facility] No Information 0-200 9 Doisy Edward. [address] , [address], [place], [address], [place]. tel:[phone] Office/outpat ient Visit, Est [facility], [address], [place], [place], [address], tel:[phone] [facility] No Information 0 6-200 9 Frankel OD Akira. [address] , [address], [place], [place], [facility], [place]. tel:[phone] [facility], [address], [place], [place], [address], tel:[phone] [facility] No Information 0 2-200 9 Frankel OD Akira. [address] , [address], [place], [place], [facility], [place]. tel:[phone] [facility], [address], [place], [place], [address], tel:[phone] [facility] No Information 0 8-200 8 Scanlon Neeta. [address] , [address], [place], [place], [facility], . tel:[phone] Family History Family Member Type Diagnosis Age At Onset No Information Payers Payer name Insurance type Covered alliance party ID Authoriza tion(s) No Information Social History Type Description Quantity Date Captured Comments Sex Female Smoking Status No Information Chief Complaint And Reason For Visit No Information Reason For Referral Reason For Referral No Information History Of Present Illness Encounter Date Complaint History Of Prese nt Illness No Information Functional Status Date Functional Assessmen t No Information Instructions Date Instruction Additional Infor mation No Information Assessments Type Assessment Date No Information Patient Care Teams Name Effective Dates (start - stop) Status Members No Information
--- OUTSIDE RECORDS SUMMARY | 2024-10-20 18:26 | XMS_ITS ---
Author Organization [facility] Address [address] [place], [place] [id number] Care Team Providers Care Radio Reporter Name Role Phone PriceAnoopAxel Unavailable Unavailable ARCHIE REDD Unavailable [phone] REASON FOR VISIT *General care Encounters Encounter Location Date Provider Diagnosis [address] [id number] 05/21/2024 ARCHIE REDD Plan Of Treatment Next Appt Details Provider Name:RENETTA ROMERONICKSeda, 02:20:00 PM, [address], [facility] [address], [place], [phone], Progress Notes * Matthew MUNGUIAB:[birth year] (74 yo F)Acc No.[id number]:05/21/2024 Patient: Ce YAN Provider: Neeta REDD :1950 A ge:73 Y S ex:Female Date:05/21/2024 Address:[address], [facility] Subjective: * Chief Complaints: * 1 . *General care. * Medical History: Objective: * Vitals: Assessment: Plan: * Treatment: * Billing Information: * Visit Code: * Procedure Codes: * Electronic signature of SANDOR REDD DPM on 10/20/2024 at 06:26 PM CDT Sign off status: Pending * Provider: Neeta REDD Date: 1 Generated for Dave edmonds/Chapis/Dionitting on: 0 10/20/2024 06:26 PM CDT
--- OUTSIDE RECORDS SUMMARY | 2024-10-20 18:26 | XMS_ITS | Clinical Summary ---
Author Organization [facility] Address [address] [place] [address] Care Team Providers Care Credit And Collections Analyst Name Role Phone Axel Price MD Primary Care Provider [phone] Allergies Active Allergy Reactions Criticality Noted Date Comments Bupropion Hives,Rash,Shortness of Breath/Wheezing High 12/19/2017 Reaction: Bupropion Hcl Shortness of Breath/Wheezing High 12/19/2017 Cephalexin Nausea and Vomiting,Shortness of Breath/Wheezing,Rash,Diarr hea,Other (See Comments),Unknown High 02/15/2015 Diclofenac Rash Low 03/15/2016 Fexofenadine Hives,Shortness of Breath/Wheezing High 12/19/2017 Lisinopril Swelling Medium 12/19/2017 Oxybutynin Shortness of Breath/Wheezing,Unknown High 03/15/2016 Paroxetine Itching,Other (See Comments) Low 10/22/2018 Reaction: Other Tizanidine Itching,Other (See Comments) Low 10/22/2018 Reaction: Other Trimethoprim Unknown 08/10/2022 Unclassified Drug Rash Low 08/20/2007 Medications NARCAN 4 mg/actuation [place], Non-Aerosol SPRAY ONCE into nostril FOR opioid emergency. REPEAT IN 2-3 minutes. call [phone] 11/30/19 18 Active insulin glargine (LANTUS) 100 unit/mL injection Inject by subcutaneous injection. Active aspirin (ECOTRIN EC) 81 mg Tablet, Delayed Release (E.C.) Take 325 mg by mouth daily . Active venlafaxine (EFFEXOR) 75 mg tablet Take 75 mg by mouth 3 times daily. Active metoprolol succinate (TOPROL XL) 25 mg Extended Release 24 hour tablet Take 25 mg by mouth daily. Active loratadine (CLARITIN) 10 mg tablet Take 10 mg by mouth daily. Active hydroCHLOROthi azide 25 mg tablet Take 25 mg by mouth daily. Active omega-3 acid ethyl esters (OMACOR,LOVAZA ) 1 gram Capsule Take 4 Grams by mouth daily. Active atorvastatin (LIPITOR) 20 mg tablet Take 20 mg by mouth late in the day. Active LORazepam (ATIVAN) 0.5 mg tablet Take 0.5 mg by mouth every 6 hours as needed for Anxiety. Active mirabegron (MYRBETRIQ) 25 mg Extended Release 24 hour tablet Take 25 mg by mouth daily. Active calcium citrate-vitami n d3 (CITRACAL D MAX) 315-250 mg-unit Tablet Take by mouth daily. Active acetaminophen (TYLENOL) 500 mg tablet Take 500 mg by mouth every 6 hours as needed. Active Cyanocobalamin (VITAMIN B-12) 1,000 mcg Tablet, Sublingual Place under tongue daily. Active empagliflozin (JARDIANCE) 25 mg tablet Take by mouth daily proof sorter. Active montelukast (SINGULAIR) 10 mg tablet Take 10 mg by mouth daily at bedtime. Active valsartan (DIOVAN) 40 mg tablet Take 40 mg by mouth daily. Active docusate sodium (COLACE) 100 mg capsule docusate sodium 100 mg capsule Active flu vaccine trivalent MF59 (65 yr+)(PF)(FLUAD ) 45 mcg/0.5 mL IM syringe Fluad 65yr up(PF)45 mcg(15 mcgx3)/0.5 mL intramuscular syringe TO BE ADMINISTERED BY PHARMACIST FOR IMMUNIZATION Active losartan (COZAAR) 25 mg tablet losartan 25 mg tablet Active Insulin [place], Disposable, (Sure Comfort Pen Needle) 31 gauge x 5/16 Needle Sure Comfort Pen Needle 31 gauge x 5/16 Active INSULIN ASPART, NIACINAMIDE, SUBCUT insulin aspart (niacinamide) Active clindamycin HCL (CLEOCIN) 300 mg Capsule TK 1 C PO QID 05/22/20 18 Active blood sugar diagnostic (FreeStyle Lite Strips) Strip Check glucose twice daily 09/29/19 21 Active cyclobenzaprin e (FLEXERIL) 10 mg tablet cyclobenzaprine 10 mg tablet Active fenofibrate (FENOGLIDE) 120 mg Tablet 120 mg. Active hydrALAZINE (APRESOLINE) 50 mg tablet Take 50 mg by mouth. Active latanoprost (XALATAN) 0.005 % solution 11/08/19 Active pantoprazole (PROTONIX) 40 mg Tablet, Delayed Release (E.C.) 09/29/19 21 Active Active Problems Problem Noted Date Diagnosed Date DM (diabetes mellitus) 12/19/2017 HTN (hypertension), benign 12/19/2017 Major depression 12/19/2017 Hyperlipidemia 12/19/2017 Spinal stenosis 12/19/2017 Iron deficiency anemia secon lilian to inadequate dietary iron intake 12/19/2017 Encounters Date Type Department Care Team Description 09/30/2024 External Device Data [facility] ABSTRACTION Provider, Abstract 09/30/2024 External Device Data [facility] ABSTRACTION Provider, Abstract 09/22/2024 External Device Data [place]STRA[place] Provider, Abstract 09/08/2024 External Device Data [facility] ABSTRACTION Provider, Abstract 07/23/2024 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 Telephone Check Up [facility] - [facility] [address] [place] [phone] Jason Buckley MD Chronic anemia (Primary Dx) from Last 3 Months Family History Medical History Relation Name Comments Heart Disease Brother Hypertension Brother Hypertension Father Depression Maternal Grandmother Diabetes Maternal Grandmother Hypertension Maternal Grandmother Stroke Maternal Grandmother Hypertension Mother Thyroid Disease Sister Relation Name Status Comments Brother Father Maternal Grandmother Mother Sister Social History Tobacco Use Types Packs/Day Years Used Date Smoking Tobacco: Former Cigarettes 1 20 1 5 - 2004 Smokeless Tobacco: Never Tobacco Cessation:Counseling Given: Not Answered Alcohol Use Standard Drinks/Week Comments No 0 (1 standard drink = 0.6 oz pur e alcohol) Comments No Sex and Gender Information Value Date Recorded Sex Assigned at Not on file Legal Sex Female 8:11 AM CDT Gender Identity Not on file Sexual Orientation Not on file Last Filed Vital Signs Vital Sign Reading Time Taken Comments Blood Pressure 109/52 01/10/2024 12:25 PM CDT Pulse 55 01/10/2024 12:25 PM CDT Temperature 36.1 C (97 F) 01/10/2024 12:25 PM CDT Respiratory Rate 14 01/10/2024 12:25 PM CDT Oxygen Saturation 94% 01/10/2024 12:25 PM CDT Inhaled Oxygen Concentration - - Weight 74.4 kg (164 lb) 01/10/2024 12:25 PM CDT Height 165.1 cm (5' 5 ) 05/02/2021 1:36 PM CDT Body Mass Index 27.29 05/02/2021 1:36 PM CDT Plan of Treatment Upcoming Encounters Date Type Department Care Team (Late st Contact Info) Description 01/29/2025 11:00 AM CDT Office Visit [facility] [place] [address] [facility] [address] [place] [address] Jason Buckley MD [address] [facility] [address] [place] [address] Health Maintenance Due Date Last Done Comments DIABETES ANNUAL FOOT EXAM 1968 DIABETES MICROALBUMIN ANNUAL SCREEN 1968 LDL CHOLESTEROL ANNUAL 1968 DTAP/TDAP/TD VACCINES (1 - Tdap) 1969 PNEUMOCOCCAL VACCINE 50+ YEA RS (1 of 2 - PCV) 1969 BREAST CANCER SCREENING 1990 FIT-DNA Q 3 years 1995 FIT/FOBT Q 1 year 1995 Flex Sig/CT Colonography Q 5 years 1995 ZOSTER VACCINE (1 of 2) 2000 RSV VACCINE (60+ or ) (1 - Risk 60-74 years 1-dose series) 2010 DIABETES ANNUAL RETINAL EXAM 10/01/2023, 11/07/2020, 11/06/2018, Additional history exists INFLUENZA VACCINE (#1) 2024 05/04/2011 DIABETES HBA1C Q 6 MONTHS 10/12/20242023, 09/06/2023, 03/12/2023, Additional history exists COLORECTAL SCREENING 09/12/2032 09/12/2022 Colorectal Cancer Screening 09/12/2032 OSTEOPOROSIS SCREENING Completed 09/23/2019 Procedures Procedure Name Priority Date/Time Associated Diagnosis Comments HEMOGLOBIN A1C Routine 09/12/2021 from Last 3 Months or Most Recently Relevant to Health Maintenance Results * HEMOGLOBIN A1C (09/12/2021) Blood us Abstract Provider CHEMISTRY ORDERABLES Final Res ult from Last 3 Months or Most Recently Relevant to Health Maintenance Insurance MEDICARE PART A AND B [employer] MEDICARE PART A AND B [employer] Care Teams Credit And Collections Analyst Relationship Specialty Start Date End Date Axel Price MD [address] [facility] [address] [place] [address] PCP - General Family Practice 12/19/17
--- OUTSIDE RECORDS SUMMARY | 2024-10-20 18:27 | XMS_ITS ---
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, bilateral legs I70.213 and Acquired keratosis [keratoderma] palmaris et plantaris L85.1 Assessments Encounter Date Diagnosis (ICD Code) Assessment Notes Treatment Notes Treatment Clinical Notes Section Notes 09/07/2024 Tinea unguium (ICD-10 - B35.1) Nails 4 and 5 Bilateral were debrided extensively with nail nippers and emery board, reducing length and girth to pink healthy tissue with any subungual debris and necrotic tissue removed 09/07/2024 Pain in right foot (ICD-10 - M79.671) 09/07/2024 Pain in left foot (ICD-10 - M79.672) 09/07/2024 Atherosclerosis of cabazon arteries of extremities with intermittent claudication, bilateral legs (ICD-10 - I70.213) 09/07/2024 Acquired keratosis [keratoderma] palmaris et plantaris [...] Name:RENETTA RIVERO, 02:20:00 PM, [address], [facility], [place], [place], [phone], Progress Notes * Mtathew MUNGUIAB:[birth year] 50 (74 yo F)Acc No.[id number]:09/07/2024 Patient: Ce YAN Provider: Jenniffer Rivero DPM :1950 A ge:74 Y S ex:Female Date:09/07/2024 Address:[place] [id number] Subjective: * Chief Complaints: * Wicho arechiga presents for at-risk foot care . The patient has painful toenails and calluses that are causing difficulty with ambulation and shoegear. The onset is gradual * HPI: H PI: General care Wicho arechiga presents to the office for diabetic foot care. Patient states that their nails are thickened, elongated and painful. Patient states that it is aggravated by shoe gear. Onset is gradual., Patient denies taking prescription blood thinners but does take a daily aspirin., Date last seen by Dr. Price was April 2024., Initials LB. * Medical History: * Surgical History: * Hospitalization/Major Diagno stic Procedure: * Medications: * Allergies: W ellbutrinLisinoprilPaxilno[Allergies Verified] Objective: * Vitals: * Examination: P hysical [...] - M79.672 4 . A therosclerosis of cabazon arteries of extremities with intermittent claudication, bilateral [...] SKIN LESIONS, 2 TO 4, Modifiers: Q8 28399 DEBRIDE NAIL, 6 OR MORE, Modifiers: 59 , Q8 * Follow Up: 1 0 - 12 weeks (Reason: At-Risk Foot care, sooner if problems develop.) * Billing Information: * Visit Code: * Procedure Codes: 76250 TRIM SKIN LESIONS, 2 TO 4. Modifiers: Q8 43141 DEBRIDE NAIL, 6 OR MORE. Modifiers: 59, Q8 * EN TRACTOR MECHANIC Sign off status: Completed true * Provider: Jenniffer Rivero DPM Date: 0 09/07/2024 Generated for Dave edmonds/Chapis/Dionitting on: 0 10/20/2024 06:26 PM CDT History [...]
--- OUTSIDE RECORDS SUMMARY | 2024-10-20 18:27 | XMS_ITS ---
Author Organization [facility] [employer] Address [address] [address] Care Team Providers Care Nuclear Technician Name Role Phone Axel Price MD Primary Care Provider Krissy Mercado [phone] REASON FOR VISIT PT cancel appt as she is throwing up and not feeling well Social History Sex Assigned At : Social History Observation Description Sex Assigned At Female Encounters Encounter Location Date Provider Diagnosis [facility] [employer] [facility] [address] [facility] [address] [place] [address] 10/13/2024 Krissy Delgado Plan Of Treatment Next Appt Details Provider Name:Mel Delcid, 11/20/2024 10:00:00 AM, [address], [address], [address], Provider Name:Krissy groves, 01/20/2025 11:00:00 AM, [facility], [address], [address], Progress Notes * IRENE MUNGUIADOB:1949 (74 yo F)Acc No.[id number]:10/13/2024 Patient: Mateus IRENE JI Provider: Seda Delgado :1950 A ge:74 Y S ex:Female Date:10/13/2024 Address:[facility] [address] [place], [place] [id number] Pcp:Axel Price MD Subjective: * Chief Complaints: * 1 . PT cancel appt as she is throwing up and not feeling well. * Medical History: Objective: * Vitals: Assessment: Plan: * Treatment: * Billing Information: * Visit Code: * Procedure Codes: * Electronic signature of Cuco Delgado on 10/20/2024 at 06:26 PM CDT Sign off status: Pending * Provider: Seda Delgado Date: 0 10/13/2024 Generated for Dave Hernandez/Sharon on: 0 10/20/2024 06:26 PM CDT
--- OUTSIDE RECORDS SUMMARY | 2024-10-20 18:27 | XMS_ITS | Continuity of Care Document ---
Author Name [facility] Organization [facility] Care Team Providers Care Program Associate Name Role Phone [facility] Unavailable Unavailable Problems Combined list of problems from Department of Defense and Veterans Affairs facilities. It does not include entries that were removed or entered in error. Problem Status Onset Date Problem Type Date of Resolution Comments Source visit for: administrative purpose Inactive Condition DoD migraine headache Active Condition DoD sudden redness of the skin (flushing) Inactive Condition DoD essential hypertension accelerated Active Condition DoD fatty liver Active Condition DoD Administrative Evaluation Services Inactive Condition DoD visit for: issue repeat prescription for medication Inactive Condition DoD diabetes mellitus type 2 Active Condition DoD depression Active Condition DoD hyperlipidemia Active Condition DoD essential hypertension benign Active Condition DoD sciatic radiculopathy Active Condition DoD osteoarthritis localized primary shoulder Active Condition DoD chronic pain syndrome Active Condition [facility] Laboratory Studies Inactive Condition Do D visit for: screening exam ischemic heart disease Inactive Condition DoD visit for: issue repeat prescription Inactive Condition [facility] classic migraine with aura Active Condition [facility] hypertension systemic Active Condition DoD myalgia and myositis Active Condition DoD essential hypertension Active Condition DoD headache syndromes Active Condition DoD Hysterectomy Active Condition DoD osteopenia Active Condition DoD Total Abdominal Hysterectomy Active Condition DoD Need For Vaccination Against Influenza Active Condition DoD diabetes mellitus poorly controlled Active Condition DoD routine history and physical Inactive Condition 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 [facility] aseptic necrosis of lunate Active Condition DoD wrist sprain Inactive Condition [facility] wrist sprain left Inactive Condition [facility] diabetes mellitus type 2 - uncomplicated, uncontrolled Active Condition HOME BLOOD SUGARS RANGE FROM 50'S TO 200'S. FOR THE LAST WEEK, FEWER HYPOGLYCEMIC EPISODES. WILL RESTART ORAL MEDS, D/C NOVOLOG SINCE PATIENT'S ACUTE ILLNESS HAS RESOLVED. [facility] smoking cigarettes Active Condition E NCOURAGED TO QUIT DoD Medications Combined list of outpatient medications from Department of Defense and Veterans Affairs facilities.Medications provided include 1) outpatient medications from the last 15 months, and 2) patient-reported medications. Medication Details Route Status Patient Instructions Prescription Expires Prescription Number Last Dispense Date Ordering Provider Order Date Order Qty Source aspirin EC 81 mg tablet 81 mg, Oral, BID, # 180 EA, 2 total refill(s ), Hard Stop Oral (given by mouth) Complet ed 06/10/2024 4 2023 180.0 Ambulat ory Pharmac y aspirin EC 81 mg tablet See Instruct ions, # 180 EA, 1 total refill(s ), Acute Complet ed 06/11/2023 3 2022 180.0 Ambulat ory Pharmac y atorvastati n 20 mg tablet 20 mg, Oral, every day at bedtime, # 90 EA, 2 total refill(s ), Hard Stop Oral (given by mouth) Discont inued 09/15/2024 4 2024 90.0 Ambulat ory Pharmac y atorvastati n 20 mg tablet 20 mg, See Instruct ions, 0, # 90 EA, 2 total refill(s ), Hard Stop Complet ed 02/27/2024 4 2023 90.0 Ambulat ory Pharmac y atorvastati n 20 mg tablet 20 mg, Oral, # 90 EA, 2 total refill(s ), Hard Stop Oral (given by mouth) Ordered 09/14/2025 5 2024 90.0 Ambulat ory Pharmac y busPIRone 10 mg tablet 10 mg, Oral, TID, # 270 EA, 1 total refill(s ), Hard Stop Oral (given by mouth) Ordered 03/17/2025 4 2023 270.0 Ambulat ory Pharmac y busPIRone 10 mg tablet 10 mg, Oral, TID, # 270 EA, 1 total refill(s ), Hard Stop Oral (given by mouth) Discont inued 03/23/2024 4 2023 270.0 Ambulat ory Pharmac y busPIRone 15 mg tablet See Instruct ions, # 45 EA, 4 total refill(s ), Acute Complet ed 09/18/2023 3 2023 45.0 Ambulat ory Pharmac y busPIRone 5 mg tablet 5 mg, Oral, TID, # 270 EA, 1 total refill(s ), Hard Stop Oral (given by mouth) Discont inued 01/13/2024 3 2023 270.0 Ambulat ory Pharmac y BUSPIRONE HCL (buspirone HCl), 10 MG, TABLET, ORAL, UNICHEM PHARMAC, 500 ea. BOTTLE Active [id number] 4 2023 270 Pharmac y Data Transac tion Service Facilit y BUSPIRONE HCL (buspirone HCl), 10 MG, TABLET, ORAL, UNICHEM PHARMAC, 500 ea. BOTTLE Active [id number] 4 2023 270 Pharmac y Data Transac tion Service Facilit y cyclobenzap rine (U/D) 5 MG ORAL TAB Be careful if taking OTCs.May impair driving. Active 11/13/2024 [id number] 4 [address] [place] [address] Antonio T[facility]NER [facility] cyclobenzap rine (U/D) 5 MG ORAL TAB Be careful if taking OTCs.May impair driving. 09/05/2024 [id number] 4 [address] [place] [address] Antonio T[facility]NER [facility]) cyclobenzap rine 5 mg tablet See Instruct ions, Oral, # 90 EA, 0 total refill(s ), Hard Stop Oral (given by mouth) Discont inued 01/20/2024 3 2023 90.0 Ambulat ory Pharmac y cyclobenzap rine 5 mg tablet See Instruct ions, # 90 EA, 0 total refill(s ), Hard Stop Complet ed 09/14/2024 4 2024 90.0 Ambulat ory Pharmac y cyclobenzap rine 5 mg tablet 5 mg, Oral, every day at bedtime, # 90 EA, 0 total refill(s ), Hard Stop Oral (given by mouth) Discont inued 01/20/2024 4 2023 90.0 Ambulat ory Pharmac y cyclobenzap rine 5 mg tablet See Instruct ions, Oral, # 90 EA, 0 total refill(s ), Hard Stop Oral (given by mouth) Complet ed 06/15/2024 4 2023 90.0 Ambulat ory Pharmac y cyclobenzap rine 5 mg tablet See Instruct ions, Oral, # 90 EA, 0 total refill(s ), Hard Stop Oral (given by mouth) Ordered 12/14/2024 5 2024 90.0 Ambulat ory Pharmac y cyclobenzap rine 5 mg tablet 5 mg, Oral, Daily, # 90 EA, 0 total refill(s ), Hard Stop Oral (given by mouth) Discont inued 03/23/2024 4 2023 90.0 Ambulat ory Pharmac y docusate sodium 100 mg capsule See Instruct ions, Oral, # 60 EA, 0 total refill(s ), Hard Stop Oral (given by mouth) Complet ed 05/21/2024 4 2023 60.0 Ambulat ory Pharmac y docusate sodium 100 mg capsule 100 mg, Oral, BID, # 60 EA, 0 total refill(s ), Hard Stop Oral (given by mouth) Complet ed 10/15/2024 5 2024 60.0 Ambulat ory Pharmac y DOXYCYCLINE HYCLATE (doxycyclin e hyclate), 100 MG, TABLET, ORAL, VIONA PHARMACEU, 500 ea. BOTTLE Active [id number] 4 2023 20 Pharmac y Data Transac tion Service Facilit y DOXYCYCLINE HYCLATE (doxycyclin e hyclate), 100 MG, TABLET, ORAL, VIONA PHARMACEU, 500 ea. BOTTLE Active [id number] 4 2023 20 Pharmac y Data Transac tion Service Facilit y EMPAGLIFLOZ IN 10 MG ORAL TAB Check with your doctor before becoming . Active 11/13/2024 [id number] 4 2023 90 [facility] Antonio [facility] [place] FLUoxetine 40 mg capsule 40 mg, Oral, Daily, # 90 EA, 1 total refill(s ), Hard Stop Oral (given by mouth) Ordered 03/17/2025 4 2023 90.0 Ambulat ory Pharmac y FLUoxetine 40 mg capsule 40 mg, Oral, every morning, # 90 EA, 1 total refill(s ), Hard Stop Oral (given by mouth) Discont inued 01/13/2024 3 2023 90.0 Ambulat ory Pharmac y FLUoxetine 40 mg capsule 40 mg, Oral, Daily, # 90 EA, 0 total refill(s ), Hard Stop Oral (given by mouth) Discont inued 03/23/2024 4 2023 90.0 Ambulat ory Pharmac y freestyle lite (glucose) test strip [50EA] See Instruct ions, # 350 EA, 3 total refill(s ), Soft Stop, SIS Ordered 5 2024 350.0 Ambulat ory Pharmac y freestyle lite (glucose) test strip [50EA] See Instruct ions, # 300 EA, 3 total refill(s ), Soft Stop, SIS Ordered 5 2024 300.0 Ambulat ory Pharmac y freestyle lite (glucose) test strip [50EA] See Instruct ions, 0, # 350 EA, 3 total refill(s ), Hard Stop, SIS Complet ed 02/28/2024 4 2023 350.0 Ambulat ory Pharmac y gabapentin 300 mg capsule 300 mg, Oral, every day at bedtime, # 30 EA, 2 total refill(s ), Hard Stop Oral (given by mouth) Ordered 01/13/2025 4 2023 30.0 Ambulat ory Pharmac y Hydrochloro thiazide (Oretic) Tablet 25 mg Oral Take orange juice or banana.T austyn with food/mil k.Avoid exposure to sun.Take or use exactly as directed . Active 01/13/2025 [id number] 4 2023 90 [employer] [employer] Antonio [facility]URNER [place] hydroCHLORO thiazide 25 mg tablet See Instruct ions, # 90 EA, 1 total refill(s ), Acute Complet ed 09/17/2023 3 2023 90.0 Ambulat ory Pharmac y hydroCHLORO thiazide 25 mg tablet 25 mg, Oral, Daily, # 90 EA, 2 total refill(s ), Hard Stop Oral (given by mouth) Discont inued 01/20/2024 4 2023 90.0 Ambulat ory Pharmac y hydroCHLORO thiazide 25 mg tablet 25 mg, Oral, Daily, # 90 EA, 2 total refill(s ), Hard Stop Oral (given by mouth) Ordered 03/16/2025 5 2024 90.0 Ambulat ory Pharmac y hydroCHLORO thiazide 25 mg tablet 25 mg, Oral, Daily, # 90 EA, 2 total refill(s ), Hard Stop Oral (given by mouth) Discont inued 03/23/2024 4 2023 90.0 Ambulat ory Pharmac y Jardiance 10 mg tablet See Instruct ions, 0, # 90 EA, 3 total refill(s ), Hard Stop Ordered 04/22/2025 5 2024 90.0 Ambulat ory Pharmac y Jardiance 10 mg tablet 10 mg, Oral, Daily, # 90 EA, 2 total refill(s ), Hard Stop Oral (given by mouth) Discont inued 04/22/2024 4 2023 90.0 Ambulat ory Pharmac y Jardiance 10 mg tablet 10 mg, Oral, Daily, # 90 EA, 1 total refill(s ), Hard Stop Oral (given by mouth) Discont inued 03/23/2024 4 2023 90.0 Ambulat ory Pharmac y Jardiance 10 mg tablet 10 mg, Oral, Daily, # 90 EA, 2 total refill(s ), Hard Stop Oral (given by mouth) Discont inued 03/23/2024 4 2023 90.0 Ambulat ory Pharmac y Lantus SoloStar glargine 100 units/mL [3mL] See Instruct ions, # 105 mL, 3 total refill(s ), Hard Stop, SIS Ordered 04/22/2025 4 2023 105.0 Ambulat ory Pharmac y Lantus SoloStar glargine 100 units/mL [3mL] See dose instruct ions in comments , # 135 mL, 3 total refill(s ), Acute Complet ed 11/06/2023 2023 135.0 Ambulat ory Pharmac y LATANOPROST (LATANOPROS T), 0.005%, DROPS, OPHTHALMIC, PIMENTEL PHARMACE, 2.5 ml DROP BTL Cancele d [id number] : 2023 0 Pharmac y Data Transac tion Service Facilit y LATANOPROST (LATANOPROS T), 0.005%, DROPS, OPHTHALMIC, PIMENTEL PHARMACE, 2.5 ml DROP BTL Cancele d [id number] : 2023 0 Pharmac y Data Transac tion Service Facilit y LATANOPROST (LATANOPROS T), 0.005%, DROPS, OPHTHALMIC, PIMENTEL PHARMACE, 2.5 ml DROP BTL Active [id number] 4 2023 2.5 Pharmac y Data Transac tion Service Facilit y latanoprost 0.005% ophthalmic solution INSTILL ONE DROP INTO BOTH EYES AT BEDTIME, # 2.5 mL, 0 total refill(s ), Acute Complet ed 09/10/20232023 2.5 Ambulat ory Pharmac y latanoprost 0.005% ophthalmic solution APPLY ONE DROP INTO BOTH EYES AT BEDTIME, # 2.5 mL, 11 total refill(s ), Acute Complet ed 09/30/20232023 2.5 Ambulat ory Pharmac y loratadine 10 mg oral tablet TAKE ONE TABLET BY MOUTH EVERY DAY, # 90 EA, 3 total refill(s ), Acute Complet ed 09/17/20232023 90.0 Ambulat ory Pharmac y loratadine 10 mg tablet 10 mg, Oral, Daily, # 90 EA, 2 total refill(s ), Hard Stop Oral (given by mouth) Ordered 04/20/2025 03/ 2025 90.0 Ambulat ory Pharmac y loratadine 10 mg tablet See Instruct ions, # 90 EA, 3 total refill(s ), Acute Complet ed 12/23/20232023 90.0 Ambulat ory Pharmac y metFORMIN 500 mg tablet See Instruct ions, 0, # 360 EA, 2 total refill(s ), Hard Stop Complet ed 02/27/2024 3 2023 360.0 Ambulat ory Pharmac y METOPROLOL SUCCINATE (metoprolol succinate), 50 MG, TAB ER 24H, ORAL, Supercell., 1000 ea. BOTTLE Active [id number] 4 2023 90 Pharmac y Data Transac tion Service Facilit y metoprolol succinate ER 25 mg/24 hour tablet 25 mg, TAKE ONE TABLET DAILY, # 90 EA, 3 total refill(s ), Acute Complet ed 12/23/20232023 90.0 Ambulat ory Pharmac y metoprolol succinate ER 50 mg/24 hour tablet 50 mg, Oral, Daily, # 90 EA, 2 total refill(s ), Hard Stop Oral (given by mouth) Ordered 04/20/2025 4 2023 90.0 Ambulat ory Pharmac y MIRABEGRON 50 MG ORAL TB24 Take with plenty of water.Ob tain advice for OTCs.Gabbi hewitt whole.Ch doris with your doctor before becoming .Do not chew or crush. Active 01/13/2025 [id number] 4 [address] [facility] Antonio [facility]URNER [place] Myrbetriq ER 50 mg tablet 50 mg, Oral, Daily, # 90 EA, 2 total refill(s ), Hard Stop Oral (given by mouth) Discont inued 01/20/2024 4 2023 90.0 Ambulat ory Pharmac y Myrbetriq ER 50 mg tablet See dose instruct ions in comments , # 90 EA, 1 total refill(s ), Acute Complet ed 09/17/2023 3 2023 90.0 Ambulat ory Pharmac y Myrbetriq ER 50 mg tablet 50 mg, Oral, Daily, # 90 EA, 2 total refill(s ), Hard Stop Oral (given by mouth) Ordered 09/14/2025 5 2024 90.0 Ambulat ory Pharmac y Myrbetriq ER 50 mg tablet 50 mg, Oral, Daily, # 90 EA, 2 total refill(s ), Hard Stop Oral (given by mouth) Discont inued 09/15/2024 4 2024 90.0 Ambulat ory Pharmac y NALOXONE HCL (naloxone HCl), 4 MG, SPRAY, NASAL, PADAGIS, 2 ea. BLIST PACK Cancele d [id number] : 2023 0 Pharmac y Data Transac tion Service Facilit y NALOXONE HCL (naloxone HCl), 4 MG, SPRAY, NASAL, PADAGIS, 2 ea. BLIST PACK Active [id number] 4 2023 2 Pharmac y Data Transac tion Service Facilit y needle pen 31g 8mm [100EA] See Instruct ions, # 200 EA, 3 total refill(s ), Soft Stop Ordered 5 2024 200.0 Ambulat ory Pharmac y omega-3-aci d ethyl esters 1000 mg capsule See Instruct ions, # 180 EA, 2 total refill(s ), Hard Stop Discont inued 01/20/2024 4 2023 180.0 Ambulat ory Pharmac y omega-3-aci d ethyl esters 1000 mg capsule 1000 mg, Oral, BID, # 180 EA, 2 total refill(s ), Hard Stop Oral (given by mouth) Ordered 09/14/2025 5 2024 180.0 Ambulat ory Pharmac y omega-3-aci d ethyl esters 1000 mg capsule 1000 mg, Oral, BID, # 180 EA, 2 total refill(s ), Hard Stop Oral (given by mouth) Discont inued 09/15/2024 4 2024 180.0 Ambulat ory Pharmac y pantoprazol e EC 40 mg tablet 40 mg, Oral, # 90 EA, 2 total refill(s ), Hard Stop Oral (given by mouth) Discont inued 01/20/2024 4 2023 90.0 Ambulat ory Pharmac y pantoprazol e EC 40 mg tablet See Instruct ions, # 90 EA, 1 total refill(s ), Acute Complet ed 09/17/2023 3 2023 90.0 Ambulat ory Pharmac y pantoprazol e EC 40 mg tablet 40 mg, Oral, every morning, # 90 EA, 2 total refill(s ), Hard Stop Oral (given by mouth) Ordered 09/14/2025 5 2024 90.0 Ambulat ory Pharmac y pantoprazol e EC 40 mg tablet 40 mg, Oral, every morning, # 90 EA, 2 total refill(s ), Hard Stop Oral (given by mouth) Discont inued 09/15/2024 4 2024 90.0 Ambulat ory Pharmac y valsartan (U/D) 40 MG ORAL TAB Be careful if taking OTCs.Garry e or use exactly as directed .Do not take if . Active 01/13/2025 [id number] 4 [address] [facility] Antonio TURNER [place] valsartan 40 mg tablet See dose instruct ions in comments , # 180 EA, 1 total refill(s ), Acute Complet ed 09/17/2023 3 2023 180.0 Ambulat ory Pharmac y valsartan 40 mg tablet 40 mg, Oral, BID, # 180 EA, 2 total refill(s ), Hard Stop Oral (given by mouth) Discont inued 01/20/2024 4 2023 180.0 Ambulat ory Pharmac y valsartan 40 mg tablet 40 mg, Oral, BID, # 180 EA, 2 total refill(s ), Hard Stop Oral (given by mouth) Ordered 01/13/2025 5 2024 180.0 Ambulat ory Pharmac y venlafaxine 75 mg oral capsule, extended release TAKE ONE CAPSULE TWICE DAILY, # 180 EA, 0 total refill(s ), Acute Discont inued 04/19/20232022 180.0 Ambulat ory Pharmac y Allergies, Adverse Reactions, Alerts Combined list of allergies from Department of Defense and Veterans Affairs facilities. It does not include entries that were removed or entered in error. Substance Category Reaction Severity Reaction type Status Date Reported Comments Source ALEKSEY (FEXOFENADINE HCL) Drug allergy (disorder) Unknown active [address] [place] [address] Antonio [facility] ([facility] buPROPion Propensity to adverse reactions to drug Unknown Active 4 Unknown Organizat ion fexofenadine Propensity to adverse reactions to drug Unknown Active 4 Unknown Organizat ion WELLBUTRIN (BUPROPION HCL) Drug allergy (disorder) Unknown active [address] [place] [address] Antonio [facility] ([facility] Immunizations Combined list of available immunizations from the Department of Defense and Veterans Affairs facilities. 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 Comments Source SARS-CoV-2 mRNA(topebblesnamblayne fbv-nafl-vav) vac 2021 217 [facility] complet ed SARS-CoV- 2 mRNA(tozi nameran-t ris-suc)v ac 01/04/22 Given Ambulat ory Pharmac y COVID-19, mRNA, LNP-S, PF, 30 mcg/0.3 mL dose, benita-sucrose 2021 ALUL, () Not Given COVID-19, mRNA, LNP-S, PF, 30 mcg/0.3 mL dose, benita-sucr ose [facility] influenza, seasonal, injectable 2010 141 [employer] complet ed influenza , seasonal, injectabl e 05/04/11 Given Ambulat ory Pharmac y influenza virus vaccine,split 2004 zzRig ht Arm [id number] 15 san[employer]i pasteur complet ed influenza virus vaccine,s plit 07/11/05 Given Ambulat ory Pharmac y influenza virus vaccine,split 2004 [id number] 15 sanofi pasteur complet ed influenza virus vaccine,s plit 07/11/05 Given Ambulat ory Pharmac y influenza virus vaccine, split virus (incl. purified surface antigen)-reti red CODE 1 2004 Unknown, Provider [id number] 15 San[employer]i Pasteur ([facility]) complet ed influenza virus vaccine, split virus (incl. purified surface antigen)- retired CODE DoD influenza virus vaccine,split 2003 zzLef t Arm [id number] 15 sanofi pasteur complet ed influenza virus vaccine,s plit 07/12/04 Given Ambulat ory Pharmac y influenza virus vaccine,split 2003 [id number] 15 sanofi pasteur complet ed influenza virus vaccine,s plit 07/12/04 Given Ambulat ory Pharmac y influenza virus vaccine, split virus (incl. purified surface antigen)-reti red CODE 1 2003 Unknown, Provider [id number] 15 [employer] Pasteur ([facility]) complet ed influenza virus vaccine, split virus (incl. purified surface antigen)- retired CODE [facility] tuberculin purified protein derivative 2002 zzL t Arm [id number] 96 [employer] pasteur complet ed Patient Tolerance : Negative Ambulat ory Pharmac y tuberculin purified protein derivative 2002 [id number] san[employer]i pasteur complet ed tuberculi n purified protein derivativ e 07/16/03 Given Ambulat ory Pharmac y tuberculin skin test; purified protein derivative solution, intradermal 1 2002 Unknown, Provider [id number] 96 [employer] Pasteur ([facility]) complet ed tuberculi n skin test; purified protein derivativ e solution, intraderm al DoD influenza virus vaccine, whole virus 2002 zzL t Arm [id number] 16 san[employer]i pasteur complet ed influenza virus vaccine, whole virus 05/27/03 Given Ambulat ory Pharmac y influenza virus vaccine, whole virus 2002 [id number] 16 san[employer]i pasteur complet ed influenza virus vaccine, whole virus 05/27/03 Given Ambulat ory Pharmac y influenza virus vaccine, whole virus 1 2002 Unknown, Provider [id number] 16 [employer] Pasteur ([facility]) complet ed influenza virus vaccine, whole virus DoD influenza virus vaccine, whole virus 2001 zzLef t Arm [id number] 16 sanofi pasteur complet ed influenza virus vaccine, whole virus 07/07/02 Given Ambulat ory Pharmac y influenza virus vaccine, whole virus 2001 [id number] 16 sanofi pasteur complet ed influenza virus vaccine, whole virus 07/07/02 Given Ambulat ory Pharmac y influenza virus vaccine, whole virus 1 2001 Unknown, Provider [id number] 16 [employer] Paste[employer] ([facility]) complet ed influenza virus vaccine, whole virus DoD influenza virus vaccine, whole virus 2000 zzRig ht Arm [id number] 16 sanofi pasteur complet ed influenza virus vaccine, whole virus 07/02/01 Given Ambulat ory Pharmac y influenza virus vaccine, whole virus 1 2000 Unknown, Provider [id number] 16 Sanofi Pasteur ([facility]) complet ed influenza virus vaccine, whole virus DoD influenza virus vaccine, whole virus 1998 [id number] 16 [employer] complet ed influenza virus vaccine, whole virus 06/14/99 Given Ambulat ory Pharmac y influenza virus vaccine, whole virus 1998 [id number] 16 [employer] complet ed influenza virus vaccine, whole virus 06/14/99 Given Ambulat ory Pharmac y influenza virus vaccine, whole virus 1 1998 Unknown, Provider [id number] 16 [employer] ([facility]) complet ed influenza virus vaccine, whole virus DoD Encounters Combined list of: 1) Encounters from Department of Veterans Affairs facilities going backup to the last 18 months, not all VA inpatient encounters are included; 2) Encounters from the Department of Defense facilities going backup to 280 months. Location Location Details Encounter Type Encounter Number Reason For Visit Attending Provider ADM Date DC Date Status Disposition Source [address] [place] [address] Antonio TURNER [facility] Internal Medicine ) OUTPATIENT [id number] 2 wk f/u for dizzine ss, fatigue , DM ALEXANDRO CHAPPELL 11/10 Released w/o Limitations [address] [place] [address] Antonio [facility] [address] [place] [address] Antonio [facility]URNER [facility] ) TELE CONSULT [id number] pt needs someone to call her ALEXANDRO CHAPPELL 01/[address] [place] [address] Antonio [facility] [address] [place] [address] Antonio T[facility]NER [facility] Medicine ) OUTPATIENT [id number] follow- up DM, HTN, HLP, depress ion, osteope kvng REZA LAIRD 02/15 Released w/o Limitations [address] [place] [address] Antonio [facility]) [address] [place] [address] Antonio TURNER ([facility] ) TELE CONSULT [id number] med renewal s BRENDA FERNANDEZ 03/[address] [place] [address] Antonio Keenan [facility]) [address] [place] [address] Antonio [facility])([facility] ) TELE CONSULT [id number] pt did not get renewal on GLARGIN E (LANTUS )--SQ 100UNIT S BRENDA FERNANDEZ 03/[address] [place] [address] Antonio [facility]NER ([facility]) [address] [place] [address] Antonio TURNER [facility] ) OUTPATIENT [id number] wrist pain/fa ll? VIDYA COLBERT 05/23 Released w/o Limitations [address] [place] [address] Antonio [facility] Intern[facility] Medic[facility] Tm) [address] [place] [address] Antonio TURNER [facility])([facility]) OUTPATIENT [id number] left wrist pain: sprain SANGITA BOLAÑOS 05/23 Released w/o Limitations [address] [place] [address] Antonio TURNER ([facility] [address] [place] [address] Antonio TURNER [facility] OUTPATIENT [id number] f/u fx MIROSLAVA JENSEN 05/28 Immediate Referral [address] [place] [address] Antonio [facility]NER [facility] [facility]V A - Orthope dics) [address] [place] [address] Antonio Keenan [facility])(Occ upational Therapy) OUTPATIENT [id number] SANGITA BOLAÑOS 05/30 Released w/o Limitations [address] [place] [address] Antonio TURNER [facility])(O ccupati onal Therapy ) [address] [place] [address] Antonio TURNER [facility])([facility] Internal Medicine ) TELE CONSULT [id number] appt BRENDA FERNANDEZ 06/[address] [place] [address] Antonio TURNER [facility])(S cott Interna l Medicin e Tm) [address] [place] [address] Antonio TURNER [facility])([facility] Internal Medicine ) OUTPATIENT [id number] needs form complet ed for worker' s comp tx auth MARIA A RUTH 06/04 Released w/o Limitations [facility] Antonio TURNER [facility])(S cott Interna l Medicin e Tm) [address] [place] [address] Antonio TURNER [facility])([facility] Internal Medicine ) TELE CONSULT [id number] surgery SEUN CRUM 06/[address] [place] [address] Antonio TURNER [facility])(S cott Interna l Medicin e Tm) [address] [place] [address] Antonio Keenan [facility])([facility] Internal Medicine ) TELE CONSULT [id number] post-op pain REBECCABRENDA SORTO Blayne 06/[address] [place] [address] Group Antonio Keenan [facility])(S cott Interna l Medicin e Tm) [address] [place] [address] Antonio TURNER [facility])([facility] Internal Medicine ) OUTPATIENT [id number] blood sugar issues REZA LAIRD 07/11 Released w/o Limitations [address] [place] [address] Antonio [facility]URNER [facility])(S cott Interna l Medicin e Tm) [address] [place] [address] Antonio TURNER [facility])([facility] amalia Practice Non-GME FHI1) TELE CONSULT [id number] Verific ation of surgica l procedu re MARIA A RUTH 07/[address] [place] [address] Antonio TURNER [facility])(F amily Practic e Non-GME FHI1) [address] [place] [address] Antonio TURNER [facility])([facility] Internal Medicine ) TELE CONSULT [id number] Med refill SEUN CRUM 09/[address] [place] [address] Antonio [facility]URNER [facility])(S cott Interna l Medicin e Tm) [address] [place] [address] Antonio TURNER [facility])([facility] Internal Medicine ) OUTPATIENT [id number] follow up MARIA A Vogel 09/12 Released w/o Limitations [address] [place] [address] Group Antonio [facility]URNER [facility])(S cott Interna l Medicin e Tm) [address] [place] [address] Antonio [facility]URNER [facility])([facility] amalia Practice Non-GME FHI1) TELE CONSULT [id number] Verific ation of surgica l procedu reMARIA A MANUEL 09/[address] [place] [address] Group Antonio TURNER [facility])(F amily Practic e Non-GME FHI1) [address] [place] [address] Antonio [facility]URNER [facility])([facility] Internal Medicine ) TELE CONSULT [id number] medicat ion request SEUN CRUM 09/[address] [place] [address] Antonio [facility])(S cott Interna l Medicin e Tm) [address] [place] [address] Antonio [facility])([facility] Internal Medicine ) OUTPATIENT [id number] high BS, SELF, hot flashes , anxiety , fatigue JAYLAN, ASSY 10/29 Released w/o Limitations [address] [place] [address])(S cott Interna l Medicin e Tm) [address] [place] [address] Antonio [facility])([facility] Internal Medicine ) OUTPATIENT [id number] f/u DM, HTN, med changes MARIA A RUTH 11/22 Released w/o Limitations [address] [place] [address])(S cott Interna l Medicin e Tm) [address] [place] [address])([facility] Internal Medicine ) TELE CONSULT [id number] bp concern s SEUN CRUM 11/[address] [place] [address] Group [facility])(S cott Interna l Medicin e Tm) [address] [place] [address])([facility] Internal Medicine ) OUTPATIENT [id number] evaluat e HTN MARIA A RUTH 11/30 Released w/o Limitations [address] [place] [address] Antonio [facility])(S cott Interna l Medicin e Tm) [address] [place] [address])([facility] Internal Medicine ) TELE CONSULT [id number] SEUN Giron 12/[address] [place] [address] Group Antonio [facility])(S cott Interna l Medicin e Tm) [address] [place] [address] Antonio [facility])([facility] Internal Medicine ) OUTPATIENT [id number] BI-LAT LEG, NECK/SH OULDER PAIN REZA LAIRD 01/14 Released w/o Limitations [address] [place] [address])(S cott Interna l Medicin e Tm) [address] [place] [address] Antonio [facility])([facility] Internal [facility] ) TELE CONSULT [id number] med refill LOLA MATUTE 04/[address] [place] [address] [facility])(S cott Interna l Medicin e Tm) [address] [place] [address] Antonio [facility] ) OUTPATIENT [id number] sciatic a, pain meds not working , MARIA A ABEL 04/19 Released w/o Limitations [address] [place] [address] Antonio [facility] ([facility]S cott Interna l Medicin e Tm) [address] [place] [address] Antonio [facility])([facility] Internal Medicine ) TELE CONSULT [id number] problem s with meds SEUN CRUM B 05/[address] [place] [address] Antonio [facility]S cott Interna l Medicin e Tm) [address] [place] [address] Antonio [facility])([facility] ) TELE CONSULT [id number] Depress ion RENETTA VAZQUEZ P 05/[address] [place] [address] Antonio Keenan ([facility]S cott Interna l Medicin e Tm) [address] [place] [address] Antonio [facility])([facility] ) TELE CONSULT [id number] Effexor not working and sicatic pain RENETTA VAZQUEZ P 05/[address] [place] [address] Antonio [facility])(S cott Interna l Medicin e Tm) [address] [place] [address] Antonio [facility])([facility] ) TELE CONSULT [id number] infor RENETTA VAZQUEZ P 06/[address] [place] [address] Antonio Keenan ([facility]S cott Interna l Medicin e Tm) [address] [place] [address] Antonio [facility])([facility] Internal [facility] ) TELE CONSULT [id number] left shoulde r injury RENETTA VAZQUEZ P 06/[address] [place] [address] Antonio [facility])(S cott Interna l Medicin e Tm) [facility] Medical [facility] Antonio [facility])([facility] Internal Medicine ) TELE CONSULT [id number] referra l RENETTA VAZQUEZ P 07/[address] [place] [address] Antonio [facility])(S cott Interna l Medicin e Tm) [address] [place] [address] Antonio [facility])([facility] ) TELE CONSULT [id number] Possibl e Bladder infecti on RENETTA VAZQUEZ P 08/[address] [place] [address] [facility])(S cott Interna l Medicin e Tm) [address] [place] [address])([facility] ) TELE CONSULT [id number] UTI RENETTA VAZQUEZ P 08/[address] [place] [address])(S cott Interna l Medicin e Tm) [address] [place] [address])([facility] ) OUTPATIENT [id number] PAP MARIA A RUTH R 09/04 Released w/o Limitations [address] [place] [address] Group [facility])(S cott Interna l Medicin e Tm) [address] [place] [address])([facility] ) TELE CONSULT [id number] lab results RENETTA VAZQUEZ P 09/[address] [place] [address] Group [facility])(S cott Interna l Medicin e Tm) [address] [place] [address])([facility] ) OUTPATIENT [id number] follow up multipl e problem s and hot flashes MARIA A RUTH R 09/25 Released w/o Limitations [address] [place] [address])(S cott Interna l Medicin e Tm) [address] [place] [address])([facility] ) TELE CONSULT [id number] med renewal RENETTA VAZQUEZ P 10/[address] [place] [address])(S cott Interna l Medicin e Tm) [address] [place] [address])([facility] Internal Medicine ) TELE CONSULT [id number] labs MARIA A RUTH R 10/[address] [place] [address])(S cott Interna l Medicin e Tm) [facility] Medical [facility])([facility] Internal Medicine ) TELE CONSULT [id number] ct results RENETTA VAZQUEZ P 10/[address] [place] [address] Group [facility])(S cott Interna l Medicin e Tm) [address] [place] [address])([facility] Internal Medicine ) TELE CONSULT [id number] Leg swellin g and discolo ration RENETTA VAZQUEZ P 10/[address] [place] [address] Antonio [facility])(S cott Interna l Medicin e Tm) [address] [place] [address])([facility] ) OUTPATIENT [id number] leesa magana in legs and ankles MARIA A RUTH 10/23 Released w/o Limitations [address] [place] [address] Antonio [facility])(S cott Interna l Medicin e Tm) [address] [place] [address])([facility] Internal [facility] Tm) TELE CONSULT [id number] B/P issiues RENETTA VAZQUEZ 10/[address] [place] [address])(S cott Interna l Medicin e Tm) [address] [place] [address])([facility] Internal Medicine Tm) TELE CONSULT [id number] ROBB TEJADA 10/[address] [place] [address])(S cott Interna l Medicin e Tm) [address] [place] [address])([facility] Internal Medicine Tm) TELE CONSULT [id number] scan results RENETTA VAZQUEZ 11/[address] [place] [address])(S cott Interna l Medicin e Tm) Procedures Combined list of: 1) Procedures from Department of Veterans Affairs facilities [facility], not all VA non-surgical procedures are included; 2) All procedures from the Department of Defense facilities. Procedure Procedure Type Code Date Perfomer Comments [facility] e INJECTION, TRIAMCINOLONE ACETONIDE, NOT OTHERWISE SPECIFIED, 10 MG [facility] ELECTROCARDIOGRAM, ROUTINE ECG WITH AT LEAST 12 LEADS; WITH INTERPRETATION AND REPORT [facility] ELECTROCARDIOGRAM, ROUTINE ECG WITH AT LEAST 12 LEADS; WITH INTERPRETATION AND REPORT [facility] INFLUENZA VIRUS VACCINE, TRIVALENT (IIV3), SPLIT VIRUS, 0.5 ML DOSAGE, FOR INTRAMUSCULAR USE [facility] OCCUPATIONAL THERAPY RE-EVALUATION [facility] WRIST HAND ORTHOSIS, WRIST EXTENSION CONTROL COCK-UP, NON MOLDED, PREFABRICATED, DNC-WMP-VABAR [facility] INFECTIOUS AGENT ANTIGEN DETECTION BY IMMUNOASSAY WITH DIRECT OPTICAL (IE, VISUAL) OBSERVATION; INFLUENZA [facility] SEDATION WITH OR WITHOUT ANALGESIA (CONSCIOUS SEDATION); INTRAVENOUS, INTRAMUSCULAR OR INHALATION 004 [facility] OPHTHALMOLOGICAL SERVICES: MEDICAL EXAMINATION AND EVALUATION, WITH INITIATION OR CONTINUATION OF DIAGNOSTIC AND TREATMENT PROGRAM; INTERMEDIATE, ESTABLISHED PATIENT [facility] INTERPRETATION OR EXPLANATION OF RESULTS OF PSYCHIATRIC, OTH MEDICAL EXAMS/PROCEDURES, OR OTH ACCUMULATED DATA TO FAMILY OR OTH RESPONSIBLE PERSONS,OR ADVISING THEM HOW TO ASSIST PATIENT [facility] EDUCATIONAL SUPPLIES, SUCH BOOKS, TAPES, AND PAMPHLETS, FOR THE PATIENT'S EDUCATION AT COST TO PHYSICIAN OR OTHER QUALIFIED HEALTH MANAGER HOTEL [facility] INJECTION, TRIAMCINOLONE ACETONIDE, NOT OTHERWISE SPECIFIED, 10 MG [facility] INJECTION, METHYLPREDNISOLONE SODIUM SUCCINATE, UP TO 40 MG [facility] INFLUENZA VIRUS VACCINE, TRIVALENT (IIV3), SPLIT VIRUS, 0.5 ML DOSAGE, FOR INTRAMUSCULAR USE [facility] Arthrocentesis Injection Of Shoulder Joint Arthrocentesis Injection Of Shoulder Joint MADDI JOHNSON Injection, triamcinolone acetonide, not otherwise specified, 10 mg MADDI JOHNSON [facility] Electrocardiogram Electrocardiogram 36406 01/15 RAJWINDER, [facility] Electrocardiogram Electrocardiogram 05511 12/03 MADDI PURDY [facility] Influenza Split Virus Vaccine 0.5mL Dosage Intramuscular Nahun RAJWINDERMADDI Abad Occupational Therapy Re-Evaluation Occupational Therapy Re-Evaluation 21632 SANGITA ZULETA Wrist hand orthosis, wrist extension control cock-up, non molded, prefabricated, [id number] SANGITA ZULETA Occupational Therapy Evaluation Occupational Therapy Evaluation 73245 SANGITA BOLAÑOS No data available for this section Ambulatory Pharmacy Social History Combined list of available smoking, tobacco, and other social history from Department of Defense and Veterans Affairs facilities. Social History Type Response Date Comment Sourc e This section is an empty social history section. DoD Assessment and Plan Combined list of future care activities from Department of Defense and Veterans Affairs facilities (e.g., assessment and plan notes, appointments, orders, and referrals). Additional future care activities may be listed in the Plan of Care section. Result Assessment and Plan Date Source Assessment and Plan No data available for this section 10/20/2024 Ambulatory Pharmacy Functional Status Combined list of recent functional and cognitive assessments recorded at Department of Defense and Veterans Affairs (VA).VA Functional [place] Measurement (FIM) Scale: 1 = Total Assistance (Subject = 0% +), 2 = Maximal Assistance (Subject = 25% +), 3 = Moderate Assistance (Subject = 50% +), 4 = Minimal Assistance (Subject = 75% +), 5 = Supervision, 6 = Modified [place] (Device), 7 = Complete [place] (Timely, Safely). Assessment Date/Time Source Assessment Type Assessment Skill Assessment Score Assessment Details No data available for this section
--- OUTSIDE RECORDS SUMMARY | 2024-10-20 18:30 | XMS_ITS | Patient Health Record ---
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 Name Role Phone Axel Price MD Primary Care Provider Unavaila Krissy Castañeda Unavailable [phone] Mel Delcid Unavailable [phone] Cristiana Hansen Unavailable [phone] Migration, Provider Unavailable Unavailable Allergies Allergen (clinical drug ingredient) Drug/Non Drug Allergy documented on EMR Reaction Allergy Type Onset Date Status Lisinopril Unknown Drug Allergy 12/17/2023 Activ e oxyBUTYnin Unknown Drug Allergy 12/17/2023 Activ e bupropion Bupropion Unknown Drug Allergy 12/17/2023 Active fexofenadine Fexofenadine Unknown Drug Allergy 12/17/2023 Active paroxetine Paroxetine Unknown Drug Allergy 12/17/2023 Acti ve tizanidine Tizanidine Unknown Drug Allergy 12/17/2023 Acti ve Reason For Referral No Information Medications Medication SIG (Take, Route, Frequency, Duration) Notes Start Date End Date Status FLUoxetine HCl 40 MG 1 capsule Oral Once a day 12/17/2023 Active Aspirin 81 81 MG 1 tablet Orally Once a day Active Vitamin B12 100 MCG as directed Orally Active Metoprolol Succinate ER 50 MG Oral 12/17/2023 Active Compazine Active Cyclobenzaprine HCl 5 MG Oral 12/17/2023 Active Silver - as directed Externally Active Jfhwb-3-odmb Ethyl Esters 1 GM Oral Active Valsartan 40 MG 1 tablet Orally Twic e a day Active hydroCHLOROthiazide 25 MG Oral 12/17/2023 Active Pantoprazole Sodium 40 MG Oral 12/17/2023 Active Latanoprost 0.005 % Ophthalmic 12/17/2023 Active Ferrous Sulfate 325 (65 Fe) MG 1 tablet Orally Three times a Week Active Myrbetriq 50 MG Oral 12/17/2023 Act emely Ascorbic Acid 500 MG 1 tablet Orally Onc e a day Active Docusate Sodium 100 MG Oral 12/17/2023 Active Calcium Carbonate 1250 (500 Ca) MG 1 tablet with food Orally Twice a day Active Jardiance 10 MG Oral 12/17/2023 Act emely Lantus 100 UNIT/ML as directed Subcutaneous Active Loratadine 10 MG Oral 12/17/2023 Ac tive busPIRone HCl 10 MG 1 tablet Oral three times a day 02/28/2024 Active Atorvastatin Calcium 20 MG Oral 12/17/2023 Active Immunizations Vaccine Route Administration Date Status Comme nts Ciera Covid-19 Vaccine Unknown 10/14/2020 Administere d Pfizer [employer]ion[employer] Covid-19 Vac cine 2nd dose Unknown 07/07/2021 Administered Pfizer [employer] Covid-19 Vac cine 2nd dose Unknown 01/04/2022 Administered Social History Tobacco Use: Social History Observation [...] Do you have a medical power of managing attorney?: No Substance Use Do you or have you [...] Do you have a medical power of managing attorney?: No Substance Use Do you or have you [...] Do you have a medical power of managing attorney?: No Substance Use Do you or have you [...] Do you have a medical power of managing attorney?: No Substance Use Do you or have you [...] Do you have a medical power of managing attorney?: No Substance Use Do you or have you [...] Do you have a medical power of managing attorney?: No Substance Use Do you or have you [...] Do you have a medical power of managing attorney?: No Problems Problem Type SNOMED Code ICD Code Onset Dates Problem Status W/U Status Risk Notes Problem Recurrent major depression in remission (63343765) Major depressive disorder, recurrent, in partial remission (F33.41) Active confirmed Problem Generalized anxiety disorder (52567267) Generalized anxiety disorder (F41.1) 4 Active confirmed Problem Primary insomnia (5501022) Primary insomnia (F51.01) 4 Active confirmed Problem Obstructive sleep apnea syndrome (disorder) (78421844) Obstructive sleep apnea (adult) (pediatric) (G47.33) 4 Active confirmed Problem Disturbed family (finding) (317464424) Family discord (Z63.8) Active confirmed Problem Essential hypertension (55902681) Benign essential HTN (I10) Active confirmed Vital Signs Heart Rate 76 /min 10/20/2024 Height-cm 167.64 cm 10/20/2024 Blood pressure diastolic 67 mm Hg 10/20/2024 Weight-kg 74.84 kg 10/20/2024 Height 66.00 in 10/20/2024 Blood pressure systolic 114 mm Hg 10/20/2024 Weight 165 lbs 10/20/2024 BMI 26.63 kg/m2 10/20/2024 Encounters Encounter Location Date Provider Diagnosis [facility] [employer] [facility] [address] [facility] [address] [place] [address] 10/20/2024 Krissy Delgado Major depressive disorder, recurrent, in partial remission F33.41 ; Generalized anxiety disorder F41.1 ; Encounter for screening for depression Z13.31 and Benign essential HTN I10 [facility] [employer] [facility] [address] [place] [address] 11/29/2023 Provider Migration Generalized anxiety disorder F41.1 [facility] [employer] [place] [address] [place] [address] 12/17/2023 Cristiana Hansen Generalized anxiety disorder F41.1 ; Obstructive sleep apnea (adult) (pediatric) G47.33 ; Major depressive disorder, recurrent, unspecified F33.9 ; Iron deficiency anemia, unspecified D50.9 ; Primary insomnia F51.01 and Major depressive disorder, recurrent, mild F33.0 [facility], [facility] [address] [facility] [address] [place] [address] 12/17/2023 Mel Hemann [facility], [facility] [address] [facility] [address] [place] [address] 01/02/2024 Mel Hemann [facility], [facility] [address] [facility] [address] [place] [address] 01/30/2024 Mel Hemann Generalized anxiety disorder F41.1 and Major depressive disorder, recurrent, moderate F33.1 [facility], [facility] [address] [facility] [address] [place] [address] 03/17/2024 Cristiana Tyrone Generalized anxiety disorder F41.1 ; Major depressive disorder, recurrent, mild F33.0 ; Primary insomnia F51.01 ; Obstructive sleep apnea (adult) (pediatric) G47.33 and Iron deficiency anemia, unspecified D50.9 [facility], [facility] [address] [facility] [address] [place] [address] 05/19/2024 Mel Hemann Generalized anxiety disorder F41.1 and Major depressive disorder, recurrent, moderate F33.1 [facility], [facility] [address] [address] 06/09/2024 Mel Hemann Major depressive disorder, recurrent, moderate F33.1 and Generalized anxiety disorder F41.1 [facility], [facility] [address] [address] 06/30/2024 Mel Hemann Major depressive disorder, recurrent, moderate F33.1 and Generalized anxiety disorder F41.1 [facility], [facility] [address] [facility] [address] [place] [address] 07/15/2024 Krissy Delgado Major depressive disorder, recurrent, moderate F33.1 ; Generalized anxiety disorder F41.1 ; Primary insomnia F51.01 ; Family discord Z63.8 ; Obstructive sleep apnea (adult) (pediatric) G47.33 and Iron deficiency anemia, unspecified D50.9 [facility], [facility] [address] [place] [address] 07/17/2024 Mel Hemann Major depressive disorder, recurrent, moderate F33.1 and Generalized anxiety disorder F41.1 [facility], [facility] [address] [place] [address] 10/20/2024 Mel Delcid Major depressive disorder, recurrent, moderate F33.1 and Generalized anxiety disorder F41.1 [facility] [address] [place] [address] 11/18/2023 Provider Migration [facility], [facility] [address] [place] [address] 12/28/2023 Provider Migration [facility], [facility] [address] [place] [address] 12/29/2023 Provider Migration [facility], [facility] [address] [place] [address] 01/14/2024 Cristiana Hansen [facility], [facility] [address] [place] [address] 02/28[facility] [address] [place] [address] 02/28/2024 Cristiana Hansen Generalized anxiety disorder F41.1 [facility] [address] [place] [address] 02/28/2024 [facility], [facility] [address] [place] [address] 03/02/2024 Cristiana Hansen Generalized anxiety disorder F41.1 [facility] [address] [place] [address] 03/04/2024 Mel Delcid [facility], [facility] [address] [place] [address] 07/17/2024 Krissy Delgado [facility], [facility] [address] [place] [address] 10/02/2024 Krissy Delgado Generalized anxiety disorder F41.1 Assessments Encounter Date Diagnosis (ICD Code) Assessment Notes Treatment Notes Treatment Clinical Notes Section Notes 03/17/2024 Generalized anxiety disorder (ICD-10 - F41.1) cont buspar 10mg TIDcont prozac 40mg qam cont counseling wants sent to [facility] today doing well currently, no new orders recommend cont counseling f/u in 3 months, earlier if concerns notes:-CKD (stage 3 per note), complicated medical [id number]-saym-msmo opiate therapy, has stopped bzo 03/17/2024 Major depressive disorder, recurrent, mild (ICD-10 - F33.0) better, has intermittent meds, counseling as above 11/29/2023 Generalized anxiety disorder (ICD-10 - F41.1) 01/30/2024 Major depressive disorder, recurrent, moderate (ICD-10 - F33.1) 01/30/2024 Generalized anxiety disorder (ICD-10 - F41.1) 05/19/2024 Major depressive disorder, recurrent, moderate (ICD-10 - F33.1) 05/19/2024 Generalized anxiety disorder (ICD-10 - F41.1) 06/09/2024 Major depressive disorder, recurrent, moderate (ICD-10 - F33.1) 06/09/2024 Generalized anxiety disorder (ICD-10 - F41.1) 06/30/2024 Major depressive disorder, recurrent, moderate (ICD-10 - F33.1) 06/30/2024 Generalized anxiety disorder (ICD-10 - F41.1) 07/15/2024 Major depressive disorder, recurrent, moderate (ICD-10 - F33.1) Depression and Anxiety - Reports increased depressive symptoms and anxiety due to stressors - feels medications ae sufficient, she's managing, situational stress - Plan: current medications, as they are deemed effective by the patient. - fluoxetine 40 mg daily, buspirone 10 mg TID Insomnia - Reports inconsistent sleep patterns and difficulty maintaining sleep. - Plan: Encourage a consistent sleep schedule and good sleep hygiene practices. ANA - doesn't use CPAP, discussed benefits of consistent use and risks of not Plan: encouraged to use CPAP Family Discord - Struggling with adult children's behavior and mental health issues, impacting her mental health and causing stress. Plan: Supported the patient in setting boundaries with her children and promoting a healthier home environment. Encouraged maintenance of regular therapy sessions with Mel and consider increasing session frequency for additional support. Follow-up 3 months, sooner if concerns arise 07/15/2024 Generalized anxiety disorder (ICD-10 - F41.1) Depression and Anxiety - Reports increased depressive symptoms and anxiety due to stressors - feels medications ae sufficient, she's managing, situational stress - Plan: current medications, as they are deemed effective by the patient. - fluoxetine 40 mg daily, buspirone 10 mg TID Insomnia - Reports inconsistent sleep patterns and difficulty maintaining sleep. - Plan: Encourage a consistent sleep schedule and good sleep hygiene practices. ANA - doesn't use CPAP, discussed benefits of consistent use and risks of not Plan: encouraged to use CPAP Family Discord - Struggling with adult children's behavior and mental health issues, impacting her mental health and causing stress. Plan: Supported the patient in setting boundaries with her children and promoting a healthier home environment. Encouraged maintenance of regular therapy sessions with Mel and consider increasing session frequency for additional support. Follow-up 3 months, sooner if concerns arise 07/17/2024 Major depressive disorder, recurrent, moderate (ICD-10 - F33.1) 07/17/2024 Generalized anxiety disorder (ICD-10 - F41.1) 10/02/2024 Generalized anxiety disorder (ICD-10 - F41.1) 10/20/2024 Major depressive disorder, recurrent, moderate (ICD-10 - F33.1) 10/20/2024 Generalized anxiety disorder (ICD-10 - F41.1) 10/20/2024 Major depressive disorder, recurrent, in partial remission (ICD-10 - F33.41) 10/20/2024 Generalized anxiety disorder (ICD-10 - F41.1) 12/17/2023 Iron deficiency anemia, unspecified (ICD-10 - D50.9) 12/17/2023 Major depressive disorder, recurrent, mild (ICD-10 - F33.0) 12/17/2023 Major depressive disorder, recurrent, unspecified (ICD-10 - F33.9) 12/17/2023 Generalized anxiety disorder (ICD-10 - F41.1) 12/17/2023 Primary insomnia (ICD-10 - F51.01) 12/17/2023 Obstructive sleep apnea (adult) (pediatric) (ICD-10 - G47.33) 10/20/2024 Encounter for screening for depression (ICD-10 - Z13.31) 07/15/2024 Primary insomnia (ICD-10 - F51.01) Depression and Anxiety - Reports increased depressive symptoms and anxiety due to stressors - feels medications ae sufficient, she's managing, situational stress - Plan: current medications, as they are deemed effective by the patient. - fluoxetine 40 mg daily, buspirone 10 mg TID Insomnia - Reports inconsistent sleep patterns and difficulty maintaining sleep. - Plan: Encourage a consistent sleep schedule and good sleep hygiene practices. ANA - doesn't use CPAP, discussed benefits of consistent use and risks of not Plan: encouraged to use CPAP Family Discord - Struggling with adult children's behavior and mental health issues, impacting her mental health and causing stress. Plan: Supported the patient in setting boundaries with her children and promoting a healthier home environment. Encouraged maintenance of regular therapy sessions with Mel and consider increasing session frequency for additional support. Follow-up 3 months, sooner if concerns arise 02/28/2024 Generalized anxiety disorder (ICD-10 - F41.1) Electronic Prior Authorization was requested for busPIRone HCl 10 MG Tablet. Provider can order medication once approval received. 03/02/2024 Generalized anxiety disorder (ICD-10 - F41.1) Electronic Prior Authorization was requested for busPIRone HCl 10 MG Tablet. Provider can order medication once approval received. 03/17/2024 Primary insomnia (ICD-10 - F51.01) has been better practice good sleep hygiene 03/17/2024 Obstructive sleep apnea (adult) (pediatric) (ICD-10 - G47.33) does not use CPAP-sleeps in recliner 07/15/2024 Family discord (ICD-10 - Z63.8) Depression and Anxiety - Reports increased depressive symptoms and anxiety due to stressors - feels medications ae sufficient, she's managing, situational stress - Plan: current medications, as they are deemed effective by the patient. - fluoxetine 40 mg daily, buspirone 10 mg TID Insomnia - Reports inconsistent sleep patterns and difficulty maintaining sleep. - Plan: Encourage a consistent sleep schedule and good sleep hygiene practices. ANA - doesn't use CPAP, discussed benefits of consistent use and risks of not Plan: encouraged to use CPAP Family Discord - Struggling with adult children's behavior and mental health issues, impacting her mental health and causing stress. Plan: Supported the patient in setting boundaries with her children and promoting a healthier home environment. Encouraged maintenance of regular therapy sessions with Mel and consider increasing session frequency for additional support. Follow-up 3 months, sooner if concerns arise 03/17/2024 Iron deficiency anemia, unspecified (ICD-10 - D50.9) pt report, improved with iron transfusion 07/15/2024 Obstructive sleep apnea (adult) (pediatric) (ICD-10 - G47.33) Depression and Anxiety - Reports increased depressive symptoms and anxiety due to stressors - feels medications ae sufficient, she's managing, situational stress - Plan: current medications, as they are deemed effective by the patient. - fluoxetine 40 mg daily, buspirone 10 mg TID Insomnia - Reports inconsistent sleep patterns and difficulty maintaining sleep. - Plan: Encourage a consistent sleep schedule and good sleep hygiene practices. ANA - doesn't use CPAP, discussed benefits of consistent use and risks of not Plan: encouraged to use CPAP Family Discord - Struggling with adult children's behavior and mental health issues, impacting her mental health and causing stress. Plan: Supported the patient in setting boundaries with her children and promoting a healthier home environment. Encouraged maintenance of regular therapy sessions with Mel and consider increasing session frequency for additional support. Follow-up 3 months, sooner if concerns arise 10/20/2024 Benign essential HTN (ICD-10 - I10) 07/15/2024 Iron deficiency anemia, unspecified (ICD-10 - D50.9) Depression and Anxiety - Reports increased depressive symptoms and anxiety due to stressors - feels medications ae sufficient, she's managing, situational stress - Plan: current medications, as they are deemed effective by the patient. - fluoxetine 40 mg daily, buspirone 10 mg TID Insomnia - Reports inconsistent sleep patterns and difficulty maintaining sleep. - Plan: Encourage a consistent sleep schedule and good sleep hygiene practices. ANA - doesn't use CPAP, discussed benefits of consistent use and risks of not Plan: encouraged to use CPAP Family Discord - Struggling with adult children's behavior and mental health issues, impacting her mental health and causing stress. Plan: Supported the patient in setting boundaries with her children and promoting a healthier home environment. Encouraged maintenance of regular therapy sessions with Mel and consider increasing session frequency for additional support. Follow-up 3 months, sooner if concerns arise 10/20/2024 Other no refills needed at this time 07/15/2024 Other referral to the local chapter or national office of the Alzheimer's Association ( ; http://www.alz.o rg), the Alzheimer's Disease Education and Referral Center (ADEAR) ( ; http://www.kvng.n ih.gov/Alzheimer s/), Depression and Anxiety - Reports increased depressive symptoms and anxiety due to stressors - feels medications ae sufficient, she's managing, situational stress - Plan: current medications, as they are deemed effective by the patient. - fluoxetine 40 mg daily, buspirone 10 mg TID Insomnia - Reports inconsistent sleep patterns and difficulty maintaining sleep. - Plan: Encourage a consistent sleep schedule and good sleep hygiene practices. ANA - doesn't use CPAP, discussed benefits of consistent use and risks of not Plan: encouraged to use CPAP Family Discord - Struggling with adult children's behavior and mental health issues, impacting her mental health and causing stress. Plan: Supported the patient in setting boundaries with her children and promoting a healthier home environment. Encouraged maintenance of regular therapy sessions with Mel and consider increasing session frequency for additional support. Follow-up 3 months, sooner if concerns arise Plan Of Treatment Next Appt Details Provider Name:Mel Delcid, 11/20/2024 10:00:00 AM, [address], [facility] [address], [place], [address], Provider Name:Krissy groves, 01/20/2025 11:00:00 AM, [address], [facility] [address], [place], [address], Insurance Providers Payer Name Payer Address Payer Phone Subscriber Number Group Number Insured Name Patient Relationship to Insured Coverage Start Date Coverage End Date Medicare-I l Medicare [address] [place] [address] [id number] IRENE CHEUNG Self - patient is the insured For Life [address] [place] [address] [id number] IRENE CHEUNG Self - patient is the insured Medical (General) History Medical History History ICD Code Problems: Chronic kidney disease stage 3 Diabetes mellitus Generalized anxiety disorder Primary insomnia stroke 2012 Essential hypertension I10 Hypercholesterolemia E78.00 GERD (gastroesophageal reflux disease) K 21.9 B12 deficiency E53.8 pain pump spinal stimulator Obstructive sleep apnea (adult) (pediatr ic) G47.33 Iron deficiency anemia, unspecified D50. 9 Surgical History Surgery Date(Month/Year) Cataract surgery (42302) Hysterectomy (52461) Tonsilectomy/adenoids 08/12/1955 Removal of gallbladder (08559) 0
--- OUTSIDE RECORDS SUMMARY | 2024-10-20 18:30 | XMS_ITS | Continuity of Care Document ---
Author Organization [facility] Address [address] [place] [address] Phone Care Team Providers Care Tiler Name Role Phone [employer] Unavailable [...] Diagnoses Date Provider Providers Copied on Encounter [facility], [address] [place] [address] [address], [place], [place], [id number], [place] tel:[phone] [facility] No Information 7 9 [employer] . [address] [facility], [facility] [address], [place], [address], [place]. tel:[phone] Referring Provider: Ernie Perdomo, [address], [place], [address]. tel:[phone] magana Provider: Belen Webster, [address] [facility], [place], [address]. tel:[phone] [facility], [address], [place], [place], [id number], [place] tel:[phone] [facility] No Information 0-200 9 Doisy Edward. [address] , [address], [place], [address], [place]. tel:[phone] Office/outpat ient Visit, Est [facility], [address], [place], [place], [id number], tel:[phone] [facility] No Information 0 [phone] Frankel OD Akira. [address] , [address], [place], [place], [facility], [place]. tel:[phone] [facility], [address], [place], [place], [address], tel:[phone] [facility] No Information 0 [phone] 9 Frankel OD Akira. [address] , [address], [place], [facility], [place]. tel:[phone] [facility], [address], [place], [place], [address], tel:[phone] [facility] No Information 0 [phone] 8 Scanlon Neeta. [address] , [address], [place], [place], [facility], . tel:[phone] Family History Family Member Type Diagnosis Age [...]
--- OUTSIDE RECORDS SUMMARY | 2024-10-20 18:31 | XMS_ITS | Continuity of Care Document ---
Author Name [facility] Organization [facility] Care Team Providers Care Diabetes Physician Name Role Phone [facility] Unavailable Unavailable Problems [...] Condition DoD chronic pain syndrome Active Condition [facility] Laboratory Studies Inactive Condition Do D visit for: screening exam ischemic heart disease Inactive Condition DoD visit for: issue repeat prescription Inactive Condition [facility] classic migraine with aura Active Condition [facility] hypertension systemic Active Condition DoD myalgia and [...] until patient is evaluated by hand surgeon. [facility] aseptic necrosis of lunate Active Condition DoD wrist sprain Inactive Condition [facility] wrist sprain left Inactive Condition [facility] diabetes mellitus type 2 - uncomplicated, uncontrolled Active Condition HOME BLOOD SUGARS RANGE FROM 50'S TO 200'S. FOR THE LAST WEEK, FEWER HYPOGLYCEMIC EPISODES. WILL RESTART ORAL MEDS, D/C NOVOLOG SINCE PATIENT'S ACUTE ILLNESS HAS RESOLVED. [facility] smoking cigarettes Active Condition E NCOURAGED TO [...] ORAL, UNICHEM PHARMAC, 500 ea. BOTTLE Active [id number] 4 2023 270 Pharmac y Data Transac tion Service Facilit y BUSPIRONE HCL (buspirone HCl), 10 MG, TABLET, ORAL, UNICHEM PHARMAC, 500 ea. BOTTLE Active [id number] 2023 270 Pharmac y Data Transac tion Service Facilit y cyclobenzap rine (U/D) 5 MG ORAL TAB Be careful if taking OTCs.May impair driving. Active 11/13/2024 [id number] 4 [address] [place] [address] Antonio [facility]) cyclobenzap rine (U/D) 5 MG ORAL TAB Be careful if taking OTCs.May impair driving. 09/05/2024 [id number] [address] [place] [address] Antonio [facility]) cyclobenzap rine 5 mg tablet See Instruct [...] ORAL, VIONA PHARMACEU, 500 ea. BOTTLE Active [id number] 2023 20 Pharmac y Data Transac tion Service Facilit y DOXYCYCLINE HYCLATE (doxycyclin e hyclate), 100 MG, TABLET, ORAL, VIONA PHARMACEU, 500 ea. BOTTLE Active [id number] 2023 20 Pharmac y Data Transac tion Service Facilit y EMPAGLIFLOZ IN 10 MG ORAL TAB Check with your doctor before becoming . Active 11/13/2024 [id number] 2023 90 [employer] Antonio [facility] ([facility] FLUoxetine 40 mg capsule 40 mg, Oral, [...] use exactly as directed . Active 01/13/2025 [id number] 4 2023 90 [employer] Antonio [facility] ([facility]) hydroCHLORO thiazide 25 mg tablet See Instruct [...] PHARMACE, 2.5 ml DROP BTL Cancele d [id number] : 2023 0 Pharmac y Data Transac tion Service Facilit y LATANOPROST (LATANOPROS T), 0.005%, DROPS, OPHTHALMIC, PIMENTEL PHARMACE, 2.5 ml DROP BTL Cancele d [id number] : 2023 0 Pharmac y Data Transac tion Service Facilit y LATANOPROST (LATANOPROS T), 0.005%, DROPS, OPHTHALMIC, PIMENTEL PHARMACE, 2.5 ml DROP BTL Active [id number] 4 2023 2.5 Pharmac y Data Transac [...] succinate), 50 MG, TAB ER 24H, ORAL, Panviva., 1000 ea. BOTTLE Active [id number] 2023 90 Pharmac y Data Transac [...] .Do not chew or crush. Active 01/13/2025 [id number] 2023 90 [facility] Antonio [facility] ([facility] Myrbetriq ER 50 mg tablet 50 mg, [...] PADAGIS, 2 ea. BLIST PACK Cancele d [id number] : 2023 0 Pharmac y Data Transac tion Service Facilit y NALOXONE HCL (naloxone HCl), 4 MG, SPRAY, NASAL, PADAGIS, 2 ea. BLIST PACK Active [id number] 2023 2 Pharmac y Data Transac [...] .Do not take if . Active 01/13/2025 [id number] 4 2023 180 [facility] Antonio [facility] ([facility] valsartan 40 mg tablet See dose instruct [...] HCL) Drug allergy (disorder) Unknown active [address] [place] [address] Antonio [facility] ([facility]) buPROPion Propensity to adverse reactions to drug Unknown Active 4 Unknown Organizat ion fexofenadine Propensity to adverse reactions to drug Unknown Active 4 Unknown Organizat ion WELLBUTRIN (BUPROPION HCL) Drug allergy (disorder) Unknown active [address] [place] [address] Antonio [facility] ([facility]) Immunizations Combined list of available immunizations from the Department of Defense and Veterans Affairs facilities. Immunization Series Date Given Administered By Site Reaction Lot Number CVX Code Drug Blending Supervisor Status Comments Source SARS-CoV-2 mRNA(topebblesnamblayne gas-yztj-szx) vac 2021 217 [facility] complet ed SARS-CoV- 2 mRNA(tozi nameran-t ris-suc)v ac 01/04/22 Given Ambulat ory Pharmac y COVID-19, mRNA, LNP-S, PF, 30 mcg/0.3 mL dose, benita-sucrose 2021 ALUL, () Not Given COVID-19, mRNA, LNP-S, PF, 30 mcg/0.3 mL dose, benita-sucr ose [facility] influenza, seasonal, injectable 2010 141 [employer] complet ed influenza , seasonal, injectabl e 05/04/11 Given Ambulat ory Pharmac y influenza virus vaccine,split 2004 zzRig ht Arm [id number] 15 sanofi pasteur complet ed influenza virus vaccine,s plit 07/11/05 Given Ambulat ory Pharmac y influenza virus vaccine,split 2004 [id number] 15 sanofi pasteur complet ed influenza virus vaccine,s plit 07/11/05 Given Ambulat ory Pharmac y influenza virus vaccine, split virus (incl. purified surface antigen)-reti red CODE 1 2004 Unknown, Provider [id number] 15 Sanofi Pasteur ([facility]) complet ed influenza virus vaccine, split virus (incl. purified surface antigen)- retired CODE DoD influenza virus vaccine,split 2003 zzLef t Arm [id number] 15 sanofi pasteur complet ed influenza virus vaccine,s plit 07/12/04 Given Ambulat ory Pharmac y influenza virus vaccine,split 2003 [id number] 15 sanofi pasteur complet ed influenza virus vaccine,s plit 07/12/04 Given Ambulat ory Pharmac y influenza virus vaccine, split virus (incl. purified surface antigen)-reti red CODE 1 2003 Unknown, Provider [id number] 15 Sanofi Pasteur ([facility]) complet ed influenza virus vaccine, split virus (incl. purified surface antigen)- retired CODE [facility] tuberculin purified protein derivative 2002 zzL t Arm [id number] 96 sanofi pasteur complet ed Patient Tolerance : Negative Ambulat ory Pharmac y tuberculin purified protein derivative 2002 [id number] 96 sanofi pasteur complet ed tuberculi n purified protein derivativ e 07/16/03 Given Ambulat ory Pharmac y tuberculin skin test; purified protein derivative solution, intradermal 1 2002 Unknown, Provider [id number] 96 Sanofi Pasteur ([facility]) complet ed tuberculi n skin test; purified protein derivativ e solution, intraderm al DoD influenza virus vaccine, whole virus 2002 zzL t Arm [id number] 16 sanofi pasteur complet ed influenza virus vaccine, whole virus 05/27/03 Given Ambulat ory Pharmac y influenza virus vaccine, whole virus 2002 [id number] 16 sanofi pasteur complet ed influenza virus vaccine, whole virus 05/27/03 Given Ambulat ory Pharmac y influenza virus vaccine, whole virus 1 2002 Unknown, Provider [id number] 16 Sanofi Pasteur ([facility]) complet ed influenza virus vaccine, whole virus DoD influenza virus vaccine, whole virus 2001 zzLef t Arm [id number] 16 sanofi pasteur complet ed influenza virus vaccine, whole virus 07/07/02 Given Ambulat ory Pharmac y influenza virus vaccine, whole virus 2001 [id number] 16 sanofi pasteur complet ed influenza virus vaccine, whole virus 07/07/02 Given Ambulat ory Pharmac y influenza virus vaccine, whole virus 1 2001 Unknown, Provider [id number] 16 Sanofi Pasteur ([facility]) complet ed influenza virus vaccine, whole virus DoD influenza virus vaccine, whole virus 2000 zzRig ht Arm [id number] 16 sanofi pasteur complet ed influenza virus vaccine, whole virus 07/02/01 Given Ambulat ory Pharmac y influenza virus vaccine, whole virus 1 2000 Unknown, Provider [id number] 16 Sanofi Pasteur ([facility]) complet ed influenza virus vaccine, whole virus DoD influenza virus vaccine, whole virus 1998 [id number] 16 [employer] complet ed influenza virus vaccine, whole virus 06/14/99 Given Ambulat ory Pharmac y influenza virus vaccine, whole virus 1998 [id number] 16 [employer] complet ed influenza virus vaccine, whole virus 06/14/99 Given Ambulat ory Pharmac y influenza virus vaccine, whole virus 1 1998 Unknown, Provider [id number] 16 [employer] ([facility]) complet ed influenza virus vaccine, whole virus [...] ADM Date DC Date Status Disposition Source [address] [place] [address] Antonio [facility])([facility] ) OUTPATIENT [id number] 2 wk f/u for dizzine ss, fatigue , DM ALEXANDRO CHAPPELL 11/10 Released w/o Limitations [address] [place] [address] Antonio [facility])([facility]) [address] [place] [address] Anotnio [facility])([facility] ) TELE CONSULT [id number] pt needs someone to call her ALEXANDRO CHAPPELL 01/[address] [place] [address] Antonio [facility])([facility] Intern[facility] Medicin e Tm) [address] [place] [address] Antonio [facility])([facility] ) OUTPATIENT [id number] follow- up DM, HTN, HLP, depress ion, osteope kvng REZA LAIRD 02/15 Released w/o Limitations [address] [place] [address] Antonio [facility])(S cott Intern[facility] l Medicin e Tm) [address] [place] [address] Antonio [facility] ([facility])([facility] ) TELE CONSULT [id number] med renewal s BRENDA FERNANDEZ 03/[address] [place] [address] Antonio [facility]) [address] [place] [address] Antonio [facility])([facility] ) TELE CONSULT [id number] pt did not get renewal on GLARGIN E (LANTUS )--SQ 100UNIT S BRENDA FERNANDEZ 03/[address] [place] [address] Antonio [facility] ([facility] Intern[facility] Medic[facility] Tm) [address] [place] [address] Antonio [facility])([facility] ) OUTPATIENT [id number] wrist pain/fa ll? VIDYA COLBERT 05/23 Released w/o Limitations [address] [place] [address] Antonio [facility])([facility] Medic[facility] Tm) [address] [place] [address] Antonio [facility])(Ot [facility] uloskelet al [facility]) OUTPATIENT [id number] left wrist pain: sprain SANGITA BOLAÑOS 05/23 Released w/o Limitations [address] [place] [address] Antonio [facility] ([facility]) [address] [place] [address] Antonio [facility])([facility] - Orthopedi cs) OUTPATIENT [id number] f/u fx MIROSLAVA JENSEN 05/28 Immediate Referral [address] [place] [address] Antonio [facility])(V A - Orthope dics) [address] [place] [address] Antonio [facility])(Occ upational Therapy) OUTPATIENT [id number] SANGITA BOLAÑOS 05/30 Released w/o Limitations [address] [place] [address] Antonio [facility])(O ccupati onal Therapy ) [address] [place] [address] Antonio [facility])([facility] ) TELE CONSULT [id number] appt BRENDA FERNANDEZ 06/[address] [place] [address] Antonio [facility])([facility] cott Interna l Medicin e Tm) [address] [place] [address] Antonio [facility])([facility] ) OUTPATIENT [id number] needs form complet ed for worker' s comp tx auth MARIA A RUTH 06/04 Released w/o Limitations [facility] Antonio [facility])([facility] cott Intern[facility] l Medicin e Tm) [address] [place] [address] Antonio [facility])([facility] ) TELE CONSULT [id number] surgery SEUN CRUM 06/[address] [place] [address] Antonio [facility])([facility] Intern[facility] l Medicin e Tm) [address] [place] [address] Antonio [facility])([facility] ) TELE CONSULT [id number] post-op pain REBECCABRENDA SORTO Blayne 06/[address] [place] [address] Group Antonio [facility])([facility] cott Interna l Medicin e Tm) [address] [place] [address] Antonio [facility])([facility] ) OUTPATIENT [id number] blood sugar issues REZA LAIRD 07/11 Released w/o Limitations [address] [place] [address] Antonio [facility])([facility] cott Interna l Medicin e Tm) [address] [place] [address] Antonio [facility])([facility] amalia Practice Non-GME FHI1) TELE CONSULT [id number] Verific ation of surgica l procedu re MARIA A RUTH 07/[address] [place] [address] Antonio [facility])(F amily Practic e Non-GME FHI1) [address] [place] [address] Antonio [facility])([facility] ) TELE CONSULT [id number] Med refill SEUN CRUM 09/[address] [place] [address] Antonio [facility])([facility] cott Interna l Medicin e Tm) [address] [place] [address] Antonio [facility])([facility] ) OUTPATIENT [id number] follow up MARIA A Vogel 09/12 Released w/o Limitations [address] [place] [address] Group Antonio [facility])([facility] cott Interna l Medicin e Tm) [address] [place] [address] Antonio [facility])([facility] amalia Practice Non-GME FHI1) TELE CONSULT [id number] Verific ation of surgica l procedu reMARIA A MANUEL 09/[address] [place] [address] Group Antonio [facility])(F amily Practic e Non-GME FHI1) [address] [place] [address] Antonio [facility])([facility] ) TELE CONSULT [id number] medicat ion request SEUN CRUM 09/[address] [place] [address] Antonio [facility])([facility] cott Interna l Medicin e Tm) [address] [place] [address] Antonio [facility])([facility] ) OUTPATIENT [id number] high BS, SELF, hot flashes , anxiety , fatigue JAYLAN, ASSY 10/29 Released w/o Limitations [address] [place] [address])([facility] Intern[facility] Medicin [facility] Tm) [address] [place] [address] Antonio [facility])([facility] ) OUTPATIENT [id number] f/u DM, HTN, med changes MARIA A RUTH 11/22 Released w/o Limitations [address] [place] [address])([facility] Intern[facility] Medicin e Tm) [address] [place] [address])([facility] ) TELE CONSULT [id number] bp concern s SEUN CRUM 11/[address] [place] [address] [facility])(S cott Interna l Medicin e Tm) [address] [place] [address])([facility] ) OUTPATIENT [id number] evaluat e HTN MARIA A RUTH 11/30 Released w/o Limitations [address] [place] [address] Antonio [facility])(S cott Interna l Medicin e Tm) [address] [place] [address])([facility] ) TELE CONSULT [id number] SEUN Giron 12/[address] [place] [address] Group Antonio [facility])(S cott Interna l Medicin e Tm) [address] [place] [address] Antonio [facility])([facility] ) OUTPATIENT [id number] BI-LAT LEG, NECK/SH OULDER PAIN REZA LAIRD 01/14 Released w/o Limitations [address] [place] [address])([facility] cott Interna l Medicin e Tm) [address] [place] [address] Antonio [facility])([facility] ) TELE CONSULT [id number] med refill LOLA MATUTE 04/[address] [place] [address] [facility] cott Interna l Medicin e Tm) [address] [place] [address] Antonio [facility] ([facility])([facility] ) OUTPATIENT [id number] sciatic a, pain meds not working , MARIA A ABEL 04/19 Released w/o Limitations [address] [place] [address] Antonio [facility] ([facility])(S cott Interna l Medicin e Tm) [address] [place] [address] Antonio [facility])([facility] ) TELE CONSULT [id number] problem s with meds SEUN CRUM B 05/[address] [place] [address] Antonio [facility] ([facility])(S cott Interna l Medicin e Tm) [address] [place] [address] Antonio [facility])([facility] ) TELE CONSULT [id number] Depress ion RENETTA VAZQUEZ P 05/[address] [place] [address] Antonio [facility] ([facility])(S cott Interna l Medicin e Tm) [address] [place] [address] Antonio [facility])([facility] ) TELE CONSULT [id number] Effexor not working and sicatic pain RENETTA VAZQUEZ P 05/[address] [place] [address] Antonio [facility])([facility] cott Interna l Medicin e Tm) [address] [place] [address] Antonio [facility])([facility] ) TELE CONSULT [id number] infor RENETTA VAZQUEZ P 06/[address] [place] [address] Antonio [facility] ([facility])(S cott Interna l Medicin e Tm) [address] [place] [address] Antonio [facility])([facility] ) TELE CONSULT [id number] left shoulde r injury RENETTA VAZQUEZ P 06/[address] [place] [address] Antonio [facility])(S cott Interna l Medicin e Tm) [facility] Antonio [facility])([facility] ) TELE CONSULT [id number] referra l RENETTA VAZQUEZ P 07/[address] [place] [address] Antonio [facility])(S cott Interna l Medicin e Tm) [address] [place] [address] Antonio [facility])([facility] ) TELE CONSULT [id number] Possibl e Bladder infecti on RENETTA VAZQUEZ P 08/[address] [place] [address] [facility])(S cott Interna l Medicin e Tm) [address] [place] [address])([facility] ) TELE CONSULT [id number] UTI RENETTA VAZQUEZ P 08/[address] [place] [address])(S cott Interna l Medicin e Tm) [address] [place] [address])([facility] ) OUTPATIENT [id number] PAP MARIA A RUTH R 09/04 Released w/o Limitations [address] [place] [address] [facility])(S cott Interna l Medicin e Tm) [address] [place] [address])([facility] ) TELE CONSULT [id number] lab results RENETTA VAZQUEZ P 09/[address] [place] [address] [facility])(S cott Interna l Medicin e Tm) [address] [place] [address])([facility] ) OUTPATIENT [id number] follow up multipl e problem s and hot flashes MARIA A RUTH R 09/25 Released w/o Limitations [address] [place] [address])([facility] cott Interna l Medicin e Tm) [address] [place] [address])([facility] ) TELE CONSULT [id number] med renewal RENETTA VAZQUEZ P 10/[address] [place] [address])([facility] cott Interna l Medicin e Tm) [address] [place] [address])([facility] ) TELE CONSULT [id number] labs MARIA A RUTH R 10/[address] [place] [address])(S cott Interna l Medicin e Tm) [facility])([facility] ) TELE CONSULT [id number] ct results RENETTA VAZQUEZ P 10/[address] [place] [address] [facility])(S cott Interna l Medicin e Tm) [address] [place] [address])([facility] ) TELE CONSULT [id number] Leg swellin g and discolo ration RENETTA VAZQUEZ P 10/[address] [place] [address] Antonio [facility])(S cott Interna l Medicin e Tm) [address] [place] [address])([facility] Internal Medicine ) OUTPATIENT [id number] leesa magana in legs and ankles MARIA A RUTH 10/23 Released w/o Limitations [address] [place] [address] Antonio [facility])(S cott Interna l Medicin e Tm) [address] [place] [address])([facility] Internal Medicine Tm) TELE CONSULT [id number] B/P issiues RENETTA VAZQUEZ 10/[address] [place] [address])([facility] Intern[facility] l Medicin e Tm) [address] [place] [address])([facility] Tm) TELE CONSULT [id number] ROBB TEJADA 10/[address] [place] [address])([facility] cott Interna l Medicin e Tm) [address] [place] [address])([facility] Tm) TELE CONSULT [id number] scan results RENETTA VAZQUEZ 11/[address] [place] [address])(S cott Interna l Medicin e Tm) Procedures Combined list of: 1) Procedures from Department of Veterans Affairs facilities [facility], not all VA non-surgical procedures are included; 2) All procedures from the Department of Defense facilities. Procedure Procedure Type Code Date Perfomer Comments [facility] e INJECTION, TRIAMCINOLONE ACETONIDE, NOT OTHERWISE SPECIFIED, 10 MG [facility] ELECTROCARDIOGRAM, ROUTINE ECG WITH AT LEAST 12 LEADS; WITH INTERPRETATION AND REPORT [facility] ELECTROCARDIOGRAM, ROUTINE ECG WITH AT LEAST 12 LEADS; WITH INTERPRETATION AND REPORT [facility] INFLUENZA VIRUS VACCINE, TRIVALENT (IIV3), SPLIT VIRUS, 0.5 ML DOSAGE, FOR INTRAMUSCULAR USE [facility] OCCUPATIONAL THERAPY RE-EVALUATION [facility] WRIST HAND ORTHOSIS, WRIST EXTENSION CONTROL COCK-UP, NON MOLDED, PREFABRICATED, [id number] [facility] INFECTIOUS AGENT ANTIGEN DETECTION BY IMMUNOASSAY WITH DIRECT OPTICAL (IE, VISUAL) OBSERVATION; INFLUENZA [facility] SEDATION WITH OR WITHOUT ANALGESIA (CONSCIOUS SEDATION); INTRAVENOUS, INTRAMUSCULAR OR INHALATION 004 [facility] OPHTHALMOLOGICAL SERVICES: MEDICAL EXAMINATION AND EVALUATION, WITH INITIATION OR CONTINUATION OF DIAGNOSTIC AND TREATMENT PROGRAM; INTERMEDIATE, ESTABLISHED PATIENT [facility] INTERPRETATION OR EXPLANATION OF RESULTS OF PSYCHIATRIC, OTH MEDICAL EXAMS/PROCEDURES, OR OTH ACCUMULATED DATA TO FAMILY OR OTH RESPONSIBLE PERSONS,OR ADVISING THEM HOW TO ASSIST PATIENT [facility] EDUCATIONAL SUPPLIES, SUCH BOOKS, TAPES, AND PAMPHLETS, FOR THE PATIENT'S EDUCATION AT COST TO PHYSICIAN OR OTHER QUALIFIED HEALTH ENGINEERING ANALYST [facility] INJECTION, TRIAMCINOLONE ACETONIDE, NOT OTHERWISE SPECIFIED, 10 MG [facility] INJECTION, METHYLPREDNISOLONE SODIUM SUCCINATE, UP TO 40 MG [facility] INFLUENZA VIRUS VACCINE, TRIVALENT (IIV3), SPLIT VIRUS, 0.5 ML DOSAGE, FOR INTRAMUSCULAR USE [facility] Arthrocentesis Injection Of Shoulder Joint Arthrocentesis Injection Of Shoulder Joint MADDI JOHNSON Injection, triamcinolone acetonide, not otherwise specified, 10 mg MADDI JOHNSON [facility] Electrocardiogram Electrocardiogram 97138 01/15 RAJWINDER, [facility] Electrocardiogram Electrocardiogram 72986 12/03 MADDI PURDY [facility] Influenza Split Virus Vaccine 0.5mL Dosage Intramuscular Nahun RAJWINDERMADDI Abad Occupational Therapy Re-Evaluation Occupational Therapy Re-Evaluation 57022 SANGITA ZULETA Wrist hand orthosis, wrist extension control cock-up, non molded, prefabricated, sby-boj-hstts SANGITA ZULETA Occupational Therapy Evaluation Occupational Therapy Evaluation 46082 SANGITA BOLAÑOS No data available for this [...] of Defense and Veterans Affairs (VA).VA Functional [place] Measurement (FIM) Scale: 1 = Total Assistance (Subject = 0% +), 2 = Maximal Assistance (Subject = 25% +), 3 = Moderate Assistance (Subject = 50% +), 4 = Minimal Assistance (Subject = 75% +), 5 = Supervision, 6 = Modified [place] (Device), 7 = Complete [place] (Timely, Safely). Assessment Date/Time Source Assessment Type Assessment Skill Assessment Score Assessment Details No data available for this section
[2024-10-20 21:26] VITALS: BP 134/62; PULSE 80; RESP 18; O2SAT 98
== END 2024-10-20 21:26 | disposition home or self-care (01) ==
PROVIDERS: Emergency Provider Emergency Medicine; PCP Family Medicine
DX: S31.149A Puncture wound of abdominal wall with foreign body, unspecified quadrant without penetration into peritoneal cavity, initial encounter (principal); E11.9 Type 2 diabetes mellitus without complications; E11.22 Type 2 diabetes mellitus with diabetic chronic kidney disease; I12.9 Hypertensive chronic kidney disease with stage 1 through stage 4 chronic kidney disease, or unspecified chronic kidney disease; N18.30 Chronic kidney disease, stage 3 unspecified; Z86.73 Personal history of transient ischemic attack (TIA), and cerebral infarction without residual deficits; Z87.891 Personal history of nicotine dependence; W45.8XXA Other foreign body or object entering through skin, initial encounter
CPT/HCPCS: 74019; 99283

== ENCOUNTER 2024-10-23 13:26 | Outpatient (CLI) | payer MEDICARE, SELFPAY ==
--- OUTSIDE RECORDS SUMMARY | 2024-10-23 13:30 | XMS_ITS ---
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 A therosclerosis of minto arteries of extremities with intermittent claudication, bilateral [...] SKIN LESIONS, 2 TO 4, Modifiers: Q8 34028 DEBRIDE NAIL, 6 OR MORE, Modifiers: 59 , Q8 * Follow Up: 1 0 - 12 weeks (Reason: At-Risk Foot care, sooner if problems develop.) * Billing Information: * Visit Code: * Procedure Codes: 03407 TRIM SKIN LESIONS, 2 TO 4. Modifiers: Q8 56216 DEBRIDE NAIL, 6 OR MORE. Modifiers: 59, Q8 * YBACK CLERK Sign off status: Completed true * Provider: Jenniffer Rivero DPM Date: 0 09/07/2024 Generated for Dave edmonds/Chapis/Dionitting on: 0 10/23/2024 01:30 PM CDT History and Physical Notes * [...]
--- OUTSIDE RECORDS SUMMARY | 2024-10-23 13:30 | XMS_ITS | Patient Health Record ---
Author Organization [facility] As [facility] Address [address] [place] [address] Care Team Providers Care Tailor Helper Name Role Phone Axel Price MD Primary Care Provider Unavaila Krissy Castañeda Unavailable [phone] Mel Delcid Unavailable [phone] Cristiana Hansen Unavailable [phone] Migration, Provider Unavailable Unavailable Allergies Allergen (clinical drug ingredient) Drug/Non Drug Allergy documented on EMR Reaction Allergy Type Onset Date Status lisinopril Lisinopril Unknown Drug Allergy 12/17/2023 Acti ve oxyBUTYnin Unknown Drug Allergy 12/17/2023 Activ e [...] Active Silver - as directed Externally Active Yioar-8-qcac Ethyl Esters 1 GM Oral Active Valsartan [...] Ciera Covid-19 Vaccine Unknown 10/14/2020 Administere d [employer] BiontNVELO Covid-19 Vac cine 2nd dose Unknown 07/07/2021 [...] Do you have a medical power of sports attorney?: No Substance Use Do you or [...] Do you have a medical power of sports attorney?: No Substance Use Do you or [...] Do you have a medical power of sports attorney?: No Substance Use Do you or [...] Do you have a medical power of sports attorney?: No Substance Use Do you or [...] Do you have a medical power of sports attorney?: No Substance Use Do you or [...] Do you have a medical power of sports attorney?: No Substance Use Do you or [...] Do you have a medical power of sports attorney?: No Problems Problem Type SNOMED Code ICD Code Onset Dates Problem Status W/U Status Risk Notes Problem Recurrent major depression in remission (34949680) Major depressive disorder, recurrent, in partial remission (F33.41) Active confirmed Problem Generalized anxiety disorder (98629861) Generalized anxiety disorder (F41.1) 4 Active confirmed Problem Primary insomnia (3427251) Primary insomnia (F51.01) 4 Active confirmed Problem Obstructive sleep apnea syndrome (disorder) (09937461) Obstructive sleep apnea (adult) (pediatric) (G47.33) 4 Active confirmed Problem Disturbed family (finding) (599349174) Family discord (Z63.8) Active confirmed Problem Essential hypertension (09912989) Benign essential HTN (I10) Active confirmed Vital Signs Heart Rate 76 /min 10/20/2024 Height-cm 167.64 cm 10/20/2024 Blood pressure diastolic 67 mm Hg 10/20/2024 Weight-kg 74.84 kg 10/20/2024 Height 66.00 in 10/20/2024 Blood pressure systolic 114 mm Hg 10/20/2024 Weight 165 lbs 10/20/2024 BMI 26.63 kg/m2 10/20/2024 Encounters Encounter Location Date Provider Diagnosis [facility] [employer] [address] [facility] [address] [place] [address] 10/20/2024 Krissy Delgado Major depressive disorder, recurrent, in partial remission F33.41 ; Generalized anxiety disorder F41.1 ; Encounter for screening for depression Z13.31 and Benign essential HTN I10 [employer] [address] [facility] [address] [place] [address] 11/29/2023 Provider Migration Generalized anxiety disorder F41.1 [facility] [place] [address] [facility] [address] [place] [address] 12/17/2023 Cristiana Hansen Generalized anxiety disorder F41.1 ; Obstructive sleep apnea (adult) (pediatric) G47.33 ; Major depressive disorder, recurrent, unspecified F33.9 ; Iron deficiency anemia, unspecified D50.9 ; Primary insomnia F51.01 and Major depressive disorder, recurrent, mild F33.0 [facility], [facility] [address] [address] 12/17/2023 Mel Hemann [facility], [facility] [address] [address] 01/02/2024 Mel Hemann [facility], [facility] [address] [address] 01/30/2024 Mel Hemann Generalized anxiety disorder F41.1 and Major depressive disorder, recurrent, moderate F33.1 [facility], [facility] [address] [address] 03/17/2024 Cristiana Tyrone Generalized anxiety disorder F41.1 ; Major depressive disorder, recurrent, mild F33.0 ; Primary insomnia F51.01 ; Obstructive sleep apnea (adult) (pediatric) G47.33 and Iron deficiency anemia, unspecified D50.9 [facility], [place] [address] [address] 05/19/2024 Mel Hemann Generalized anxiety disorder F41.1 and Major depressive disorder, recurrent, moderate F33.1 [facility], [place] [address] [address] 06/09/2024 Mel Hemann Major depressive disorder, recurrent, moderate F33.1 and Generalized anxiety disorder F41.1 [place] [address] [address] 06/30/2024 Mel Hemann Major depressive disorder, recurrent, moderate F33.1 and Generalized anxiety disorder F41.1 [facility], [place] [address] [facility] [address] [place] [address] 07/15/2024 Krissy Delgado Major depressive disorder, recurrent, moderate F33.1 ; Generalized anxiety disorder F41.1 ; Primary insomnia F51.01 ; Family discord Z63.8 ; Obstructive sleep apnea (adult) (pediatric) G47.33 and Iron deficiency anemia, unspecified D50.9 [facility], [facility] [address] [facility] [address] [place] [address] 07/17/2024 Mel Hemann Major depressive disorder, recurrent, moderate F33.1 and Generalized anxiety disorder F41.1 [facility], [facility] [address] [place] [address] 10/20/2024 Mel Dovекатерина Major depressive disorder, recurrent, moderate F33.1 and Generalized anxiety disorder F41.1 [facility], [facility] [address] [place] [address] 11/18/2023 Provider Migration [facility], [facility] [address] [place] [address] 12/28/2023 Provider Migration [facility], [facility] [address] [place] [address] 12/29/2023 Provider Migration [facility], [facility] [address] [place] [address] 01/14/2024 Cristiana Hansen [facility], [facility] [address] [place] [address] 02/28/2024 Cristiana [facility], [facility] [address] [place] [address] 02/28/2024 Cristiana Hansen Generalized anxiety disorder F41.1 [facility], [facility] [address] [place] [address] 02/28/2024 Cristiana [facility], [facility] [address] [place] [address] 03/02/2024 Cristiana Hansen Generalized anxiety disorder F41.1 [facility], [facility] [address] [place] [address] 03/04/2024 Mel Delcid [facility], [facility] [address] [place] [address] 07/17/2024 Krissy Delgado [facility], [facility] [address] [place] [address] 10/02/2024 Krissy Delgado Generalized anxiety disorder F41.1 Assessments Encounter Date Diagnosis (ICD Code) Assessment Notes Treatment Notes Treatment Clinical Notes Section Notes 03/17/2024 Generalized anxiety disorder (ICD-10 - F41.1) cont buspar 10mg TIDcont prozac 40mg qam cont counseling wants sent to [facility] today doing well currently, no new orders recommend cont counseling f/u in 3 months, earlier if concerns notes:-CKD (stage 3 per note), complicated medical mk-uhwa-ibae opiate therapy, has stopped bzo 03/17/2024 Major depressive disorder, recurrent, mild (ICD-10 - F33.0) better, has intermittent meds, counseling as above 05/19/2024 Major depressive disorder, recurrent, moderate (ICD-10 [...] 10/20/2024 Generalized anxiety disorder (ICD-10 - F41.1) 11/29/2023 Generalized anxiety disorder (ICD-10 - F41.1) 12/17/2023 Iron deficiency anemia, unspecified (ICD-10 - D50.9) 12/17/2023 Major depressive disorder, recurrent, mild (ICD-10 - F33.0) 12/17/2023 Major depressive disorder, recurrent, unspecified (ICD-10 - F33.9) 12/17/2023 Generalized anxiety disorder (ICD-10 - F41.1) 12/17/2023 Primary insomnia (ICD-10 - F51.01) 12/17/2023 Obstructive sleep apnea (adult) (pediatric) (ICD-10 - G47.33) 01/30/2024 Major depressive disorder, recurrent, moderate (ICD-10 - F33.1) 01/30/2024 Generalized anxiety disorder (ICD-10 - F41.1) 02/28/2024 Generalized anxiety disorder (ICD-10 - F41.1) Electronic Prior Authorization was requested for busPIRone HCl 10 MG Tablet. Provider can order medication once approval received. 03/02/2024 Generalized anxiety disorder (ICD-10 - F41.1) Electronic Prior Authorization was requested for busPIRone HCl 10 MG Tablet. Provider can order medication once approval received. 10/20/2024 Encounter for screening for depression (ICD-10 [...] 3 months, sooner if concerns arise 03/17/2024 Primary insomnia (ICD-10 - F51.01) has [...] 3 months, sooner if concerns arise 07/15/2024 Obstructive sleep apnea (adult) (pediatric) (ICD-10 [...] 10/20/2024 Benign essential HTN (ICD-10 - I10) 03/17/2024 Iron deficiency anemia, unspecified (ICD-10 - D50.9) pt report, improved with iron transfusion 07/15/2024 Iron deficiency anemia, unspecified (ICD-10 - [...] Details Provider Name:Mel Delcid, 11/20/2024 10:00:00 AM, [address], [facility] [address], [place], [address], Provider Name:Krissy groves, 01/20/2025 11:00:00 AM, [address], [facility] [address], [place], [address], Insurance Providers Payer Name Payer Address Payer Phone Subscriber Number Group Number Insured Name Patient Relationship to Insured Coverage Start Date Coverage End Date Medicare-I l Medicare [address] [place] [address] [id number] IRENE CHEUNG Self - patient is the insured For Life [address] [place] [address] [id number] IRENE CHEUNG Self - patient is the [...] 9 Surgical History Surgery Date(Month/Year) Cataract surgery (87712) Hysterectomy (93237) Tonsilectomy/adenoids 08/12/1955 Removal of gallbladder (67748) 0
--- OUTSIDE RECORDS SUMMARY | 2024-10-23 13:30 | XMS_ITS | Continuity of Care Document ---
Author Organization [facility] Address [address] [place] [address] Phone Care Team Providers Care Fur Dry Cleaner Hand Name Role Phone [facility] [employer] Unavailable [...] Diagnoses Date Provider Providers Copied on Encounter [facility], [address] [place] [address] [address], [place], [place], [address], [place] tel:[phone] [facility] No Information 7 9 Optical Shop [employer] . [address] [facility], [facility] [address], [place], [address], [place]. tel:[phone] Referring Provider: Ernie Perdomo, [address], [place], [address]. tel:[phone] magana Provider: Belen Webster, [address] [facility], [place], [address]. tel:[phone] [facility], [address], [place], [place], [address], [place] tel:[phone] [facility] No Information 0-200 9 Doisy Edward. [address] [facility] , [address], [place], [address], [place]. tel:[phone] Office/outpat ient Visit, [facility], [address], [place], [place], [address], tel:[phone] [facility] No Information 0 [phone] Frankel OD Akira. [address] [facility] , [address], [place], [place], [facility], [place]. tel:[phone] [facility], [address], [place], [place], [address], tel:[phone] [facility] No Information 0 [phone] Frankel OD Akira. [address] [facility] , [address], [place], [place], [facility], [place]. tel:[phone] [facility], [address], [place], [place], [address], tel:[phone] [facility] No Information 0 [phone] Scanlon Neeta. [address] [facility] , [address], [place], [place], [facility], . tel:[phone] Family History Family Member Type Diagnosis Age At Onset No Information Payers Payer name Insurance type Covered constitution party ID Authoriza tion(s) No Information Social [...]
--- OUTSIDE RECORDS SUMMARY | 2024-10-23 13:30 | XMS_ITS | Clinical Summary ---
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
--- OUTSIDE RECORDS SUMMARY | 2024-10-23 13:30 | XMS_ITS ---
Author Organization [facility] [employer] Address [address] [place] [address] Care Team Providers Care Cat Swamper Name Role Phone Axel Price MD Primary Care Provider UnavailKrissy Clay Unavailable [phone] Mel Reed Unavailable [phone] REASON FOR VISIT Depressed mood, Anxiety, Family [...] Cyclobenzaprine HCl 5 MG Oral 12/17/2023 Active Wgwjy-5-vanf Ethyl Esters 1 GM Oral 12/17/2023 Active [...] Do you have a medical power of employment attorney?: No Encounters Encounter Location Date Provider Diagnosis [facility] [address] [place] [address] 10/20/2024 Mel Reed Major depressive disorder, recurrent, [...] 11/20/2024 10:00:00 AM, [address], [facility] [address], [place], [address], Provider Name:Krissy Daniel yaneli, 01/20/2025 11:00:00 AM, [address], [place], [address], Progress Notes * IRENE MUNGUIADOB:1949 (74 yo F)Acc No.[id number]:10/20/2024 Patient: IRENE YAN Provider: Conor REED LCSW :1950 A ge:74 Y S ex:Female Date:10/20/2024 Address:[address] [place], [place] [address] Pcp:Axel Price MD Data: * Time Tracker: [...] Do you have a medical power of employment attorney?: No. * Medications: T aking Valsartan [...] hydroCHLOROthiazide 25 MG Tablet Oral , Taking Pxgek-6-ertz Ethyl Esters 1 GM Capsule Oral , [...] Information: * Visit Code: * Procedure Codes: 02887 PSYCHOTHERAPY W/PATIENT 60 MINUTES. G8432 CLIN DEPRESSION SCREEN NOT D. 1036F TOBACCO NON-USER. * Sign off status: Completed Signatures: No Ad Hoc Signature Added true * Provider: Conor REED, TAXATION ECONOMIST Date: 0 10/20/2024 Generated for Dave edmonds/Chapis/Sharon on: 0 10/23/2024 01:29 PM CDT History and Physical Notes * [...]
--- OUTSIDE RECORDS SUMMARY | 2024-10-23 13:30 | XMS_ITS | Clinical Summary ---
Author Organization [facility] Address [address] [place] [address] Care Team Providers Care Glass Technician Name Role Phone Axel Price MD Primary Care Provider [phone] Allergies Active Allergy Reactions Criticality Noted Date [...] Rash Low 08/20/2007 Medications NARCAN 4 mg/actuation [facility], Non-Aerosol SPRAY ONCE into nostril FOR opioid [...] 25 mg tablet Take by mouth daily early childhood education worker. Active montelukast (SINGULAIR) 10 mg tablet Take [...] tablet losartan 25 mg tablet Active Insulin [place], Disposable, (Sure Comfort Pen Needle) 31 gauge [...] 40 mg Tablet, Delayed Release (E.C.) 09/29/19 Active Active Problems Problem Noted Date Diagnosed [...] External Device Data STL ABSTRACTION Provider, Abstract from Last 3 Months Family History Medical History Relation Name Comments Heart Disease Brother Hypertension Brother Hypertension Father Depression Maternal Grandmother Diabetes Maternal Grandmother Hypertension Maternal Grandmother Stroke Maternal Grandmother Hypertension Mother Thyroid Disease Sister Relation Name Status Comments Brother Father Maternal Grandmother Mother Sister Social History Tobacco Use Types Packs/Day Years Used Date Smoking Tobacco: Former Cigarettes 1 20 - 2004 Smokeless Tobacco: Never Tobacco Cessation:Counseling [...] Description 01/29/2025 11:00 AM CDT Office Visit [facility] [address] [facility] [address] [place] [address] Jason Buckley MD [address] [facility] [address] [place] [address] Health Maintenance Due Date Last [...] Maintenance Insurance MEDICARE PART A AND B FOR LIFE MEDICARE PART A AND B FOR LIFE Care Teams Glass Technician Relationship Specialty Start Date End Date Axel Price MD [address] [facility] [address] [place] [address] PCP - General Family Practice 12/19/17
--- OUTSIDE RECORDS SUMMARY | 2024-10-23 13:30 | XMS_ITS | Clinical Summary ---
Author Organization [facility] Address [address] [place] [address] Care Team Providers Care Transcriber Name Role Phone Axel Price MD Primary [...] every 6 hours as needed Active marlin mdd-gfj-S8-Zn- coping machine assembler-man-bor 250-40-125 mg-mg-unit tablet Take by mouth. 06/20/20 [...] by mouth 3 times daily Active omega 7-nrx-spu-fish oil (OMEGA-3) 350 mg-235 mg- 90 mg-597 [...] 23 Active blood-glucose meter,continuo us (Dexcom G6 International Tax Manager) misc Use as directed 1 each 03/12/20 23 Active blood-glucose meter,continuo us (Dexcom G7 International Tax Manager) miscIndication s:Type 2 diabetes mellitus with diabetic [...] Active pen needle, diabetic (Easy Comfort Pen [place]) 31 gauge x 5/16 needle Use twice daily with insulin pen 200 each 3 06/14/20 20 025 Discontinued(R eorder) FreeStyle Lite Strips strip Check glucose 3-4 daily 350 each 3 09/15/19 25 025 Discontinued(R eorder) pen needle, diabetic (Easy Comfort Pen [place]) 31 gauge x 5/16 needleIndicati ons:Type 2 diabetes mellitus with diabetic polyneuropathy , with long-term current use of insulin (HCC) Use twice daily with insulin pen 200 each 3 10/16/19 25 025 Discontinued Active Problems Problem Noted Date Diagnosed Date Chronic pain syndrome 06/03/2020 Overview (06/03/2020): Added automatically from request for surgery [id number] Subclinical hypothyroidism 07/08/2018 Assessment & Plan (07/08/2018 3:12 PM BULLET SLUGS INSPECTOR): Clinically euthyroid w/o treatment and last TSH normal 3.28 and may be age related elevation previously. -monitor with period TFT Mixed hyperlipidemia 07/08/2018 Assessment & Plan (07/08/2018 3:13 PM BULLET SLUGS INSPECTOR): LDL 57 excellent control on lipitor TG at goal 12/2017 on lovaza 4g Iron deficiency anemia 07/08/2018 Assessment & Plan (07/08/2018 3:13 PM BULLET SLUGS INSPECTOR): Pt has been evaluated by hematology and appropriate work up performed HTN (hypertension), benign 12/19/2017 Major depression 12/19/2017 Spinal stenosis 12/19/2017 Type 2 diabetes mellitus wit h neurologic complication, with long-term current use of insulin 02/15/2015 Assessment & Plan (07/08/2018 3:12 PM BULLET SLUGS INSPECTOR): Controlled A1c 7.4, but may be discrepant [...] Type Department Care Team Description 10/20/2024 Telephone [facility] Endocrinology Metabolism and Lipid [address] [facility] [address] Medicine 5th [place] [address] [place] [phone] Dago Garza, ROLA 09/15/2024 Telephone [facility] Endocrinology Metabolism and Lipid [address] [facility] [address] 5th [place] [address] [place] [phone] Varsha Blanco RMA 09/07/2024 Telephone [facility] Endocrinology Metabolism and Lipid [address] [facility] [address] [place] [address] Dago Garza, ROLA 09/07/2024 Telephone [facility] Endocrinology Metabolism and Lipid [address] [facility] [address] [place] [address] Dago Garza RN from Last [...] transient cerebra l ischemia - (Added by [employer] Conv) Cancer (HCC) Sleep apnea GERD (gastroesophageal reflux disease) Type 2 diabetes mellitus (HCC) Cerebrovascular accident (CVA) (HCC) Family History Medical History Relation Name Comments Thyroid disease Daughter Family histo ry of thyroid problem - (Added by TW Conv) Heart disease Father Family history of cardiac disorder - (Added by [employer] Conv) Cancer Other 1 Family history of Cancer; Heart disease Other 2 Family history of Heart disease; Stroke Other 3 Family history of Stroke; Thyroid disease Sister Family histo ry of thyroid problem - (Added by TW Conv) Heart disease Son Family history of cardiac disorder - (Added by [employer] Conv) Relation Name Status Comments Daughter Father [...] on file Legal Sex Female 2:40 AM BULLET SLUGS INSPECTOR Gender Identity Not on file Sexual Orientation Not on file Obstetrics History Last Filed Vital Signs Vital Sign Reading Time Taken Comments Blood Pressure 111/44 04/14/2024 1:21 PM CDT Pulse 56 04/14/2024 1:21 PM CDT Temperature 37.4 C (99.4 F) 04/14/2024 1:21 PM CDT Respiratory Rate 18 06/25/2020 7:55 AM BULLET SLUGS INSPECTOR Oxygen Saturation 94% 06/25/2020 7:55 AM BULLET SLUGS INSPECTOR Inhaled Oxygen Concentration - - Weight 78.3 [...] history exists Medical Devices Implanted Type Area Manager Employee Relations Device Identifier Shelf Expiration Date Model / Serial / Lot Medtronic Neuro 8637-20 Synchromed Ii .78in [place] Filter Mesh Pouch Programmable - [id number] - [id number] Implanted:Qty: 1 on 06/24/2020 by Sabrina Whiting MD at [facility] [employer] 11/23/2021 8637 -20 / [id number] / Procedures Procedure Name Priority Date/Time Associated [...] Willis MD POINT OF CARE TEST ORDER ARTEMOI Final Result * (ABNORMAL) Lipid panel (03/12/2023 2:05 PM CDT) Triglycerides 160(H) <150 mg/dL [facility] Comment: Desirable: <150 mg/dL, fasting <175 mg/dL, non-fasting Persistently elevated triglycerides may enhance atherosclerotic cardiovascular disease. Total Cholesterol 123 <200 mg/dL [facility] Total HDL-C Direct 31(L) >50 mg/dL [facility] Comment: A low HDL-C may be inidcative of metabolic syndrome and enhance atherosclerotic cardiovascular disease risk. Non-HDL cholesterol 92 <220 mg/[facility] [place] LDL Chol 60 <190 mg/dL [facility] Comment: The inaccuracy of the [place] [...] PM CDT 03/12/2023 3:33 PM CDT Narrative [facility] - 03/12/2023 4:19 PM CDT Current interpretive data was last updated July 14, 2021. For adults ages 40-79, the ACC/AHA recommends discussing your 10-year atherosclerotic cardiovascular disease risk with your health care provider. [email or web address].org/ASCVDApp us Urbano Childers MD LAB BLOOD ORDERABLES Final Resu lt [facility] * (ABNORMAL) [...] Recently Relevant to Health Maintenance Insurance MEDICARE [place] MEDICARE FOR LIFE Advance Directives For more information, please contact: [phone] * Full Code (Latest Code Status on File) Date Activated Date Inactivated Comments 06/24/2020 4:31 PM 06/25/2020 3:40 PM Care Teams Transcriber Relationship Specialty Start Date End Date Axel Price MD [address] [facility] [[email or web address] [address] [place] [address] PCP - General 02/05/17
--- OUTSIDE RECORDS SUMMARY | 2024-10-23 13:30 | XMS_ITS | Referral Summary ---
Author Organization [facility] Address [address] [place] [address] Care Team Providers Care Regional Guide Name Role Phone Axel Price MD Primary Care Provider Encounters Date Type Department Care Team Description 10/20/2024 Telephone [facility] Endocrinology Metabolism and Lipid [address] [facility] Advanced Medicine 5th [place] [address] [place] [phone] Dago Garza, RN 09/15/2024 Telephone [facility] Endocrinology Metabolism and Lipid [address] [facility] Advanced Medicine 5th [place] [address] [place] [address] Varsha Blanco RMA 09/07/2024 Telephone [facility] Endocrinology Metabolism and Lipid [address] [facility] [address] [place] [phone] Dago Garza, RN 09/07/2024 Telephone [facility] Endocrinology Metabolism and Lipid [address] [facility] [address] [place] [phone] Dago Garza, RN from Last 3 Months [...] every 6 hours as needed Active marlin oii-qaf-B2-Zn- sonoscope operator-man-bor 250-40-125 mg-mg-unit tablet Take by mouth. [...] by mouth 3 times daily Active omega 5-eif-pwp-fish oil (OMEGA-3) 350 mg-235 mg- 90 mg-597 [...] 23 Active blood-glucose meter,continuo us (Dexcom G6 Proposal Rep) misc Use as directed 1 each 03/12/20 23 Active blood-glucose meter,continuo us (Dexcom G7 Proposal Rep) miscIndication s:Type 2 diabetes mellitus with diabetic [...] , with long-term current use of insulin ([facility]) Inject 55 units under the skin twice [...] Active pen needle, diabetic (Easy Comfort Pen [place]) 31 gauge x 5/16 needle Use twice daily with insulin pen 200 each 3 06/14/20 20 025 Discontinued(R eorder) FreeStyle Lite Strips strip Check glucose 3-4 daily 350 each 3 09/15/19 25 025 Discontinued(R eorder) pen needle, diabetic (Easy Comfort Pen [place]) 31 gauge x 5/16 needleIndicati ons:Type 2 diabetes mellitus with diabetic polyneuropathy , with long-term current use of insulin (HCC) Use twice daily with insulin pen 200 each 3 10/16/19 25 025 Discontinued Active Problems Problem Noted Date Diagnosed Date Chronic pain syndrome 06/03/2020 Overview (06/03/2020): Added automatically from request for surgery [id number] Subclinical hypothyroidism 07/08/2018 Assessment & Plan (07/08/2018 3:12 PM HAZMAT TECHNICIAN): Clinically euthyroid w/o treatment and last TSH normal 3.28 and may be age related elevation previously. -monitor with period TFT Mixed hyperlipidemia 07/08/2018 Assessment & Plan (07/08/2018 3:13 PM HAZMAT TECHNICIAN): LDL 57 excellent control on lipitor TG at goal 12/2017 on lovaza 4g Iron deficiency anemia 07/08/2018 Assessment & Plan (07/08/2018 3:13 PM HAZMAT TECHNICIAN): Pt has been evaluated by hematology and appropriate work up performed HTN (hypertension), benign 12/19/2017 Major depression 12/19/2017 Spinal stenosis 12/19/2017 Type 2 diabetes mellitus wit h neurologic complication, with long-term current use of insulin 02/15/2015 Assessment & Plan (07/08/2018 3:12 PM HAZMAT TECHNICIAN): Controlled A1c 7.4, but may be discrepant [...] on file Legal Sex Female 2:40 AM HAZMAT TECHNICIAN Gender Identity Not on file Sexual Orientation Not on file Last Filed Vital Signs Vital Sign Reading Time Taken Comments Blood Pressure 111/44 04/14/2024 1:21 PM CDT Pulse 56 04/14/2024 1:21 PM CDT Temperature 37.4 C (99.4 F) 04/14/2024 1:21 PM CDT Respiratory Rate 18 06/25/2020 7:55 AM HAZMAT TECHNICIAN Oxygen Saturation 94% 06/25/2020 7:55 AM HAZMAT TECHNICIAN Inhaled Oxygen Concentration - - Weight 78.3 kg (172 lb 9.6 oz) 04/14/2024 1:21 P M CDT Height 168.4 cm (5' 6.3 ) 04/14/2024 1:21 PM CDT Body Mass Index 27.61 04/14/2024 1:21 PM CDT Plan of Treatment Not on file Medical Devices Implanted Type Area Ambulance Paramedic Device Identifier Shelf Expiration Date Model / Serial / Lot Medtronic Neuro 8637-20 Synchromed Ii .78in [place] Filter Mesh Pouch Programmable - [id number] - [id number] Implanted:Qty: 1 on 06/24/2020 by Sabrina Whiting MD at [facility] [employer] 11/23/2021 8637 -20 / [id number] / Procedures Procedure Name Priority Date/Time Associated [...] 2:05 PM CDT) Triglycerides 160(H) <150 mg/dL [facility] Comment: Desirable: <150 mg/dL, fasting <175 mg/dL, non-fasting Persistently elevated triglycerides may enhance atherosclerotic cardiovascular disease. Total Cholesterol 123 <200 mg/dL [facility] Total HDL-C Direct 31(L) >50 mg/dL [facility] Comment: A low HDL-C may be inidcative of metabolic syndrome and enhance atherosclerotic cardiovascular disease risk. Non-HDL cholesterol 92 <220 mg/dL [facility] [place] LDL Chol 60 <190 mg/dL [facility] Comment: The inaccuracy of the [...] MD LAB BLOOD ORDERABLES Final Resu lt [facility] * (ABNORMAL) [...] Recently Relevant to Health Maintenance Insurance MEDICARE [place] MEDICARE FOR LIFE Advance Directives For more information, please contact: [phone] * Full Code (Latest Code Status on File) Date Activated Date Inactivated Comments 06/24/2020 4:31 PM 06/25/2020 3:40 PM Care Teams Regional Guide Relationship Specialty Start Date End Date Axel Price MD [address] [facility] [address] [place] [address] PCP - General 02/05/17
--- OUTSIDE RECORDS SUMMARY | 2024-10-23 13:30 | XMS_ITS | Encounter Summary ---
Author Organization [facility] [employer] Address [address] [place] [address] Care Team Providers Care Fruit Pitter Name Role Phone Axel Price MD Primary Care Provider [phone] Encounter Details Date Type Department Care Team (Late Contact Info) Description 08/10/2022 Telephone [facility] Oncology and [facility] [address] [place] [address] Jaylen Chapin MD [address] [place] [phone] Social History Tobacco Use Types Packs/Day [...] Coronavirus/COVID-19? No / Unsure 08/10/2022 10:38 AM PROMOTIONS COORDINATOR documented as of this encounter Plan of Treatment Upcoming Encounters Date Type Department Care Team (Late Contact Info) Description 01/29/2025 11:00 AM CDT Office Visit [facility] Oncology and Hematology [facility] [address] [place] [address] Jason Buckley MD [address] [facility] [address] [place] [phone] Scheduled Orders Name Type Priority Associated Diagnoses Orde r Schedule CBC WITH DIFFERENTIAL Lab Routine Iron deficiency anemia secondary to inadequate dietary iron intake Expected: 08/10/2022, Expires: 08/10/2023 documented as of this encounter Visit Diagnoses Diagnosis Iron deficiency anemia secondary to inadequate dietary iron intake- Primary documented in this encounter Care Teams Fruit Pitter Relationship Specialty Start Date End Date Axel Price MD [address] [facility] [address] [place] [address] PCP - General Family Practice 12/19/17 documented as of this encounter
--- OUTSIDE RECORDS SUMMARY | 2024-10-23 13:30 | XMS_ITS | Continuity of Care Document ---
Author Name [facility] Organization [facility] Care Team Providers Care Guest Services Name Role Phone [facility] Unavailable Unavailable Medications Combined list of outpatient medications from [...] 3 2023 270.0 Ambulat ory Pharmac y cyclobenzap rine 5 [...] Stop Oral (given by mouth) Ordered 12/14/2024 04/ 2025 90.0 Ambulat ory Pharmac y cyclobenzap rine 5 mg tablet 5 mg, Oral, Daily, # 90 EA, 0 total refill(s ), Hard Stop Oral (given by mouth) Discont inued 03/23/2024 4 2023 90.0 Ambulat ory Pharmac y docusate sodium 100 mg capsule See Instruct ions, Oral, # 60 EA, 0 total refill(s ), Hard Stop Oral (given by mouth) Complet ed 05/21/2024 2023 60.0 Ambulat ory Pharmac y docusate sodium 100 mg capsule 100 mg, Oral, BID, # 60 EA, 0 total refill(s ), Hard Stop Oral (given by mouth) Complet ed 10/15/2024 5 2024 60.0 Ambulat ory Pharmac y FLUoxetine 40 mg [...] refill(s ), Soft Stop, SIS Ordered 5 03/06/ 2025 300.0 Ambulat ory Pharmac y freestyle lite [...] 4 2023 30.0 Ambulat ory Pharmac y hydroCHLORO thiazide 25 mg tablet See Instruct [...] total refill(s ), Acute Complet ed 11/06/2023 4 2023 135.0 Ambulat ory Pharmac y latanoprost 0.005% ophthalmic solution INSTILL ONE [...] Stop Oral (given by mouth) Ordered 04/20/2025 5 2024 90.0 Ambulat ory Pharmac y loratadine 10 mg tablet See Instruct ions, # 90 EA, 3 total refill(s ), Acute Complet ed 12/23/20232023 90.0 Ambulat ory Pharmac y metFORMIN 500 mg tablet See Instruct ions, 0, # 360 EA, 2 total refill(s ), Hard Stop Complet ed 02/27/2024 3 2023 360.0 Ambulat ory Pharmac y metoprolol succinate ER 25 mg/24 hour [...] 4 2024 90.0 Ambulat ory Pharmac y needle pen 31g 8mm [100EA] See [...] 2024 90.0 Ambulat ory Pharmac y valsartan 40 mg tablet See dose instruct [...] Reaction type Status Date Reported Comments Source buPROPion Propensity to adverse reactions to drug Unknown Active 4 Unknown Organizat ion fexofenadine Propensity to adverse reactions to drug Unknown Active 4 Unknown Organizat ion Immunizations Combined list of available immunizations from the Department of Defense and Veterans Affairs facilities. Immunization Series Date Given Administered By Site Reaction Lot Number CVX Code Drug Micro Paleontologist Status Comments Source SARS-CoV-2 mRNA(rosie ygx-zijx-dar) vac 2021 217 [facility] complet ed SARS-CoV- 2 mRNA(vikram varghese-t ris-suc)v ac 01/04/22 Given Ambulat ory Pharmac y influenza, seasonal, injectable 2010 141 [employer] complet ed influenza , seasonal, injectabl e 05/04/11 Given Ambulat ory Pharmac y influenza virus vaccine,split 2004 Mark ht Arm [id number] 15 sanofi pasteur complet ed influenza virus vaccine,s plit 07/11/05 Given Ambulat ory Pharmac y influenza virus vaccine,split 2004 [id number] 15 sanofi pasteur complet ed influenza virus vaccine,s plit 07/11/05 Given Ambulat ory Pharmac y influenza virus vaccine,split 2003 zzLef t Arm [id number] 15 sanofi pasteur complet ed influenza virus vaccine,s plit 07/12/04 Given Ambulat ory Pharmac y influenza virus vaccine,split 2003 [id number] 15 sanofi pasteur complet ed influenza virus vaccine,s plit 07/12/04 Given Ambulat ory Pharmac y tuberculin purified protein derivative 2002 zzLef t Arm [id number] 96 sanofi pasteur complet ed Patient Tolerance : Negative Ambulat ory Pharmac y tuberculin purified protein derivative 2002 [id number] 96 sanofi pasteur complet ed tuberculi n purified protein derivativ e 07/16/03 Given Ambulat ory Pharmac y influenza virus vaccine, whole virus 2002 zzLef t Arm [id number] 16 sanofi pasteur complet ed influenza virus vaccine, whole virus 05/27/03 Given Ambulat ory Pharmac y influenza virus vaccine, whole virus 2002 [id number] 16 sanofi pasteur complet ed influenza virus vaccine, whole virus 05/27/03 Given Ambulat ory Pharmac y influenza virus vaccine, whole virus 2001 zzLef t Arm [id number] 16 sanofi pasteur complet ed influenza virus vaccine, whole virus 07/07/02 Given Ambulat ory Pharmac y influenza virus vaccine, whole virus 2001 [id number] 16 sanofi pasteur complet ed influenza virus vaccine, whole virus 07/07/02 Given Ambulat ory Pharmac y influenza virus vaccine, [id number] sanofi pasteur complet ed influenza virus vaccine, whole virus 07/02/01 Given Ambulat ory Pharmac y influenza virus vaccine, whole virus 1998 [id number] 16 [facility] complet ed influenza virus vaccine, whole virus 06/14/99 Given Ambulat ory Pharmac y influenza virus vaccine, whole virus 1998 [id number] [facility] influenza virus vaccine, whole virus 06/14/99 Given Ambulat ory Pharmac y Procedures Combined list of: 1) Procedures from Department of Veterans Affairs facilities [facility], not all VA non-surgical procedures are included; 2) All procedures from the Department of Defense facilities. Procedure Procedure Type Code Date Perfomer Comments Sourc e No data available for this section Ambulatory P harmacy Assessment and Plan Combined list of future care activities from Department of Defense and Veterans Affairs facilities (e.g., assessment and plan notes, appointments, orders, and referrals). Additional future care activities may be listed in the Plan of Care section. Result Assessment and Plan Date Source Assessment and Plan No data available for this section 10/23/2024 Ambulatory Pharmacy Functional Status Combined list of recent functional and cognitive assessments recorded at Department of Defense and Veterans Affairs (CT).VA Functional [place] Measurement (FIM) Scale: 1 = Total Assistance (Subject = 0% +), 2 = Maximal Assistance (Subject = 25% +), 3 = Moderate Assistance (Subject = 50% +), 4 = Minimal Assistance (Subject = 75% +), 5 = Supervision, 6 = Modified Alger (Device), 7 = Complete Alger (Timely, Safely). Assessment Date/Time Source Assessment Type Assessment Skill Assessment Score Assessment Details No data available for this section
--- OUTSIDE RECORDS SUMMARY | 2024-10-23 13:30 | XMS_ITS | Patient Health Record ---
Author Organization [facility] Address [address] [place], [place] [id number] Care Team Providers Care Farm Labor Contractor Name Role Phone Axel Price Unavailable Unavailable RENETTA RIVERO Unavailable [phone] ARCHIE REDD Unavailable [phone] Allergies Allergen (clinical drug ingredient) Drug/Non Drug [...] 01/16/2024 Encounters Encounter Location Date Provider Diagnosis [facility] [address] [place], [place] [id number] 11/14/2023 ARCHIE REDD Other hammer toe(s) (acquired), right foot M20.41 ; Tinea unguium B35.1 ; Other hammer toe(s) (acquired), left foot M20.42 ; Pain in left toe(s) M79.675 ; Pain in right toe(s) M79.674 ; Unspecified atherosclerosis of [place] arteries of extremities, bilateral legs I70.203 and Type 2 diabetes mellitus with diabetic peripheral angiopathy without gangrene E11.[address] [id number] 01/16/2024 ARCHIE REDD Other hammer toe(s) (acquired), right foot M20.41 ; Tinea unguium B35.1 ; Other hammer toe(s) (acquired), left foot M20.42 ; Pain in left toe(s) M79.675 ; Pain in right toe(s) M79.674 ; Unspecified atherosclerosis of [place] arteries of extremities, bilateral legs I70.203 and Type 2 diabetes mellitus with diabetic peripheral angiopathy without gangrene E11.[address] [id number] 03/19/2024 ARCHIE REDD Other hammer toe(s) (acquired), right foot M20.41 ; Tinea unguium B35.1 ; Other hammer toe(s) (acquired), left foot M20.42 ; Pain in left toe(s) M79.675 ; Pain in right toe(s) M79.674 ; Unspecified atherosclerosis of [place] arteries of extremities, bilateral legs I70.203 and Type 2 diabetes mellitus with diabetic peripheral angiopathy without gangrene E11.51 [facility] [place] [address] [place] [id number] 05/25/2024 RENETTA SNOOK Tinea unguium B35.1 ; Pain in right foot M79.671 ; Pain in left foot M79.672 ; Atherosclerosis of [place] arteries of extremities with intermittent claudication, bilateral legs I70.213 and Acquired keratosis [keratoderma] palmaris et plantaris L85.1 [facility] [place] [address] [place] [id number] 09/07/2024 RENETTA SNOOK Tinea unguium B35.1 ; Pain in right foot M79.671 ; Pain in left foot M79.672 ; Atherosclerosis of [place] arteries of extremities with intermittent claudication, bilateral [...] toe(s) (ICD-10 - M79.675) 09/07/2024 Atherosclerosis of [place] arteries of extremities with intermittent claudication, bilateral legs (ICD-10 - I70.213) 05/25/2024 Atherosclerosis of [place] arteries of extremities with intermittent claudication, bilateral [...] (ICD-10 - M79.674) 11/14/2023 Unspecified atherosclerosis of [place] arteries of extremities, bilateral legs (ICD-10 - I70.203) Patient educated on risks and aggravating factors of PVD, including conservative treatment options such as a diet and exercise regimen to aid in slowing progression of vascular disease 01/16/2024 Unspecified atherosclerosis of [place] arteries of extremities, bilateral legs (ICD-10 - I70.203) Patient educated on risks and aggravating factors of PVD, including conservative treatment options such as a diet and exercise regimen to aid in slowing progression of vascular disease 03/19/2024 Unspecified atherosclerosis of [place] arteries of extremities, bilateral legs (ICD-10 - [...] Name:RENETTA RIVERO, 02:20:00 PM, [address], [facility], [place], [place], [id number], Insurance Providers Payer Name Payer Address Payer Phone Subscriber Number Group Number Insured Name Patient Relationship to Insured Coverage Start Date Coverage End Date Medicare Part B [facility] [address] [place] [address] [id number] Ce Lewis Self - patient is the insured for Life (All Regions) [address] [place], [place] [id number] Ce Lewis Self - patient is the insured Medical (General) History Medical History History ICD Code acid reflux stroke Cancer (Kidney) anemia Open Sores Arthritis Sleep apnea Diabetic Heart Disease depression hypertension Abnormal Bleeding
--- OUTSIDE RECORDS SUMMARY | 2024-10-23 13:30 | XMS_ITS ---
Author Organization [facility] Address [address] [place], [place] [phone] Care Team Providers Care Salesperson Furniture Name Role Phone PriceAnoopAxel Unavailable Unavailable ARCHIE REDD Unavailable [phone] REASON FOR VISIT *General care Encounters Encounter Location Date Provider Diagnosis [address] [id number] 05/21/2024 ARCHIE REDD Plan Of Treatment Next Appt Details Provider Name:RENETTA ROMERONICKSeda, 02:20:00 PM, [address], [facility] [address], [place], [phone], Progress Notes * Matthew MUNGUIAB:[birth year] (74 yo F)Acc No.[id number]:05/21/2024 Patient: Ce YAN Provider: Neeta REDD :1950 A ge:73 Y S ex:Female Date:05/21/2024 Address:[address], [facility] Subjective: * Chief Complaints: * 1 . *General care. * Medical History: Objective: * Vitals: Assessment: Plan: * Treatment: * Billing Information: * Visit Code: * Procedure Codes: * Electronic signature of SANDOR REDD DPM on 10/23/2024 at 01:29 PM CDT Sign off status: Pending * Provider: Neeta REDD Date: 1 Generated for Dave edmonds/Chapis/Dionitting on: 0 10/23/2024 01:29 PM CDT
--- OUTSIDE RECORDS SUMMARY | 2024-10-23 13:31 | XMS_ITS ---
Author Organization [facility] Address [address] [place], [place] [phone] Care Team Providers Care Reimbursement Rep Name Role Phone Axel Price Unavailable Unavailable RENETTA RIVERO Unavailable [phone] Allergies Allergen (clinical drug ingredient) Drug/Non Drug [...] Location Date Provider Diagnosis [facility] [place] [address] [place], [place] [id number] 05/25/2024 RENETTA RIVERO Tinea unguium B35.1 ; Pain in right foot M79.671 ; Pain in left foot M79.672 ; Atherosclerosis of [place] arteries of extremities with intermittent claudication, bilateral [...] foot (ICD-10 - M79.672) 05/25/2024 Atherosclerosis of [place] arteries of extremities with intermittent claudication, bilateral [...] Name:RENETTA RIVERO, 02:20:00 PM, [address], [facility], [place], [place], [phone], Progress Notes * Randal MUNGUIARayrayB:[birth year] (73 yo F)Acc No.[id number]:05/25/2024 Patient: Ce YAN Provider: Jenniffer Rivero DPM :1950 A ge:73 Y S ex:Female Date:05/25/2024 Address:[place] [id number] Subjective: * Chief Complaints: * 1 . [...] - M79.672 4 . A therosclerosis of [place] arteries of extremities with intermittent claudication, bilateral [...] LESIONS, 2 TO 4, Modifiers: Q8 , 83839 TRIM NAIL(S), Modifiers: 59 , Q8 * Follow Up: 1 0 - 12 weeks (Reason: At-Risk Foot care, sooner if problems develop.) * Billing Information: * Visit Code: * Procedure Codes: 37810 TRIM SKIN LESIONS, 2 TO 4. Modifiers: Q8 93268 TRIM NAIL(S). Modifiers: 59, Q8 * Sign off status: Completed true * Provider: Jenniffer Rivero DPM Date: Generated for Dave edmonds/Chapis/Sharon on: 0 10/23/2024 01:30 PM CDT History [...]
--- OUTSIDE RECORDS SUMMARY | 2024-10-23 13:31 | XMS_ITS ---
Author Organization [facility] Address [address] [address] Care Team Providers Care Capacity Analyst Name Role Phone Axel Price MD Primary Care Provider Krissy Mercado [phone] REASON FOR VISIT PT cancel appt as she is throwing up and not feeling well Social History Sex Assigned At : Social History Observation Description Sex Assigned At Female Encounters Encounter Location Date Provider Diagnosis [facility] [address] [facility] [address] [place] [address] 10/13/2024 Krissy Delgado Plan Of Treatment Next Appt Details Provider Name:Mel Delcid, 11/20/2024 10:00:00 AM, [address], [address], [address], Provider Name:Krissy groves, 01/20/2025 11:00:00 AM, [facility], [address], [address], Progress Notes * IRENE MUNGUIADOB:1949 (74 yo F)Acc No.[id number]:10/13/2024 Patient: Mateus IRENE JI Provider: Seda Delgado :1950 A ge:74 Y S ex:Female Date:10/13/2024 Address:[facility] [address] [place], [place] [address] Pcp:Axel Price MD Subjective: * Chief Complaints: * 1 . PT cancel appt as she is throwing up and not feeling well. * Medical History: Objective: * Vitals: Assessment: Plan: * Treatment: * Billing Information: * Visit Code: * Procedure Codes: * Electronic signature of Cuco Delgado on 10/23/2024 at 01:31 PM CDT Sign off status: Pending * Provider: Seda Delgado Date: 0 10/13/2024 Generated for Dave Hernandez/Sharon on: 10/23/2024 01:31 PM CDT
--- OUTSIDE RECORDS SUMMARY | 2024-10-23 13:31 | XMS_ITS | Encounter Summary ---
Author Organization [facility] Address [address] [place] [address] Phone Care Team Providers Care Heating And Blending Supervisor Name Role Phone Axel Price MD Primary Care Provider Encounter Details Date Type Department Care Team (Late st Contact Info) Description 09/07/2024 Telephone [facility] Endocrinology Metabolism and Lipid 1 [facility] [address] [place] [address] Dago Garza RN Social History Tobacco Use Types Packs/Day Years Used Date Smoking Tobacco: Former Cigarettes Q uit: 2005 Alcohol Use Standard Drinks/Week Comments Not Currently 0 (1 standard drink = 0.6 oz pur e alcohol) Comments Unknown Sex and Gender Information Value Date Recorded Sex Assigned at Not on file Legal Sex Female 2:40 AM MEDICAL CLAIMS SPECIALIST Gender Identity Not on file Sexual Orientation Not on file documented as of this encounter Plan of Treatment Not on file documented as of this encounter Visit Diagnoses Not on filedocumented in this encounter Care Teams Heating And Blending Supervisor Relationship Specialty Start Date End Date Axel Price MD [address] [facility] [address] [place] [address] PCP - General 02/05/17 documented as of this encounter
[2024-10-23 14:24] LABS: Alanine Aminotransferase 17 U/L (14-59); Albumin Level 3.6 g/dL (3.4-5.0); Alkaline Phosphatase 91 U/L (46-116); Anion Gap 6 mmol/L (4-12); Aspartate Amino Transferase 13 U/L (15-37); Bilirubin,Total 0.4 mg/dL (0.00-1.00); Blood Urea Nitrogen 23 mg/dL (7-18); Calcium 8.7 mg/dL (8.5-10.1); Carbon Dioxide 33 mmol/L (21-32); Chloride 101 mmol/L (98-108); Estimated Glomerular Filt Rate 42; Free T4 Free Thyroxine 1.12 ng/dL (0.76-1.46); Glucose 131 mg/dL (70-99); Osmolality Calculated 295 mOsm/kg (285-295); Potassium 4.6 mmol/L (3.5-5.1); Sodium 140 mmol/L (136-145); Thyroid Stimulating Hormone 2.75 uIU/mL (0.36-3.74); Total Protein 6.8 g/dL (6.4-8.2)
== END 2024-10-23 13:27 | disposition home or self-care (01) ==
LOC: CHSLAB 13:27
PROVIDERS: PCP Family Medicine; Visit Provider Physician Assistant
DX: I10 Essential (primary) hypertension (principal); I51.89 Other ill-defined heart diseases; I73.9 Peripheral vascular disease, unspecified; E11.65 Type 2 diabetes mellitus with hyperglycemia; R79.89 Other specified abnormal findings of blood chemistry
CPT/HCPCS: 36415; 80053; 84439; 84443

== ENCOUNTER 2024-10-30 09:42 | Outpatient (CLI) | payer MEDICARE, OTHER, SELFPAY ==
--- NOTE | ~2024-10-30 | MM_ITS ---
EXAMINATION: MM screening enzo BI w jasson HISTORY: Screening TECHNIQUE: Craniocaudal and mediolateral oblique 3-D tomosynthesis images were obtained and synthetic 2-D images were generated. CAD analysis was submitted and interpreted. COMPARISON: Comparison to multiple prior studies sequentially, with oldest reviewed study dated 09/23. BREAST PARENCHYMAL COMPOSITION: Not dense: There are scattered areas of fibroglandular density. FINDINGS: There is no evidence of suspicious mass, calcification, or architectural distortion to sugg est malignancy in either breast. There has been no suspicious interval change. IMPRESSION: 1. No mammographic evidence of malignancy. 2. Recommend routine screening mammography in one year. BI-RADS Category 1: Negative Reviewed, dictated and finalized at location B.
--- NOTE | ~2024-10-30 | DEXA_ITS ---
Bone Density Report Name: IRENE MUNGUIA Age: 74 Sex: Female Ethnicity: White Date of : 1950 Indication: postmenopausal; screening for osteoporosis; height loss; prior fracture; hysterectomy; Referring Provider: RENETTA HATFIELD Study: Bone densitometry was performed. Exam Date: October 30, 2024 Accession number: [id number] Bone Density: Region BMD T-score Z-score Classification AP Spine(L3, L4) 1.167 0.6 3.1 Normal Femoral Neck (Left) 0.678 -1.5 0.5 Osteopenia Total Hip (Left) 0.892 -0.4 1.3 Normal World Health Organization criteria for BMD impression classify patients as: Normal (T-score at or above -1.0), Osteopenia (T-score between -1.0 and -2.5), or Osteoporosis (T-score at or below -2.5). 10-year Fracture Risk: FRAX not reported because: Prior hip or vertebral fracture Clinical Information Provided by Patient: Have had a previous hip or vertebral fracture Has had a low trauma fracture Has the following medical conditions: Hysterectomy Patient maximum height was 67 Menopause Age: 50 No regular weight bearing exercise Does not regularly consume dairy products Drinks caffeinated beverages Onset of menses at age 13 Number of children 2 Impression: The patient has low bone mass, based on the Left Femoral Neck T-score. The patient has risk factors, including: previous fracture. Discussion: INCREASED RISK OF FRACTURE DUE TO HISTORY OF FRACTURE. The patient's previous fracture puts the patient at high risk of a future fracture. In untreated patients, the risk of osteoporotic fracture increases approximately two-fold for each 1.0 SD decrease in T-score. Low bone density is not the only risk factor for fracture; also consider factors such as patient's age, frailty or poor health, risk of falling, risk of injury, previous osteoporotic fracture, family history of osteoporosis, cigarette smoking, low body weight, etc. Not everyone with a low trauma fracture has osteoporosis; osteomalacia and other metabolic bone disorders should also be considered. Patients who have osteoporosis should be evaluated for specific diseases and conditions (secondary causes) that may cause or contribute to bone loss and fracture risk. National Osteoporosis Foundation (NOF) recommends pharmacologic intervention for patients with a prior hip or vertebral fracture regardless of BMD T-score. The patient should follow a healthful lifestyle (good nutrition with adequate calcium and vitamin D, and appropriate weight-bearing exercise). Follow-Up: Consider a repeat BMD and Vertebral Fracture Assessment (VFA) exam in 2 years or sooner if medically necessary, to reassess this patient's status. Reported by: KATHARINE on 10/30/2024 10:38:00 AM. Reviewed, dictated and finalized at location A.
[2024-10-30 10:00] LABS: Basophils Absolute Auto 0.08 K/mm3 (0.00-0.10); Basophils Percent Auto 1.1 % (0.0-1.0); Eosinophils Absolute Auto 0.37 K/mm3 (0.02-0.50); Eosinophils Percent Auto 4.9 % (1.0-6.0); Hematocrit 39.8 % (35.0-42.0); Hemoglobin 12.5 g/dL (11.7-13.8); Immature Granulocyte Absolute 0.05 K/mm3 (0.00-0.00); Immature Granulocyte Percent A 0.7 % (0.0-0.0); Lymphocytes Absolute Auto 1.62 K/mm3 (1.10-4.50); Lymphocytes Percent Auto 21.6 % (18.0-42.0); Mean Corpuscular HGB Conc 31.4 g/dL (32-36); Mean Corpuscular Hemoglobin 27.2 pg (27.0-31.0); Mean Corpuscular Volume 86.7 fL (78.0-102.0); Mean Platelet Volume 10.6 fl (9.2-11.8); Neutrophils Absolute Auto 4.77 K/mm3 (1.70-7.20); Neutrophils Percent Auto 63.7 % (50.0-70.0); Platelet Count Result 198 K/mm3 (150-420); Red Blood Count 4.59 M/mm3 (4.20-5.40); Red Cell Distribution Width 13.2 % (11.6-14.4); White Blood Count 7.5 K/mm3 (4.8-10.8)
[2024-10-30 10:18] LABS: Partial Thromboplastin Time 25.8 Sec (23.9-30.70); Prothrombin Time 10.7 Seconds (9.50-12.1)
--- OUTSIDE RECORDS SUMMARY | 2024-10-30 10:50 | XMS_ITS | Referral Summary ---
Author Organization [facility] Address [address] [place] [address] Care Team Providers Care Sales Enablement Manager Name Role Phone Axel Price MD Primary Care Provider Encounters Date Type Department Care Team Description 10/27/2024 1:40 PM CDT Office Visit [facility] Endocrinology Metabolism and Lipid [address] [facility] [address] 5th [place] [address] [place] [address] Aleksander Willis MD Type 2 diabetes mellitus with diabetic polyneuropathy, with long-term current use of insulin (HCC) (Primary Dx) 10/20/2024 Telephone [facility] Endocrinology Metabolism and Lipid [address] [facility] [address] 5th [place] [address] [place] [address] Dago Garza RN 09/15/2024 Telephone [facility] Endocrinology Metabolism and Lipid [address] [facility] [address] 5th [place] [address] [place] [address] Varsha Blanco RMA 09/07/2024 Telephone [facility] Endocrinology Metabolism and Lipid 1 [facility] [address] [place] [address] Dago Garza RN 09/07/2024 Telephone [facility] Endocrinology Metabolism and Lipid 1 [facility] [address] [place] [address] Dago Garza RN from Last 3 Months Allergies Active [...] every 6 hours as needed Active marlin gsi-pcp-G9-Zn- stroboscope operator-man-bor 250-40-125 mg-mg-unit tablet Take by mouth. [...] by mouth 3 times daily Active omega 9-xps-xzd-fish oil (OMEGA-3) 350 mg-235 mg- 90 mg-597 [...] Active Additional Information Patient not taking.Reported on 10/27/2024 losartan (COZAAR) 25 mg tablet losartan 25 [...] bulk, (DILAUDID) 100 % powder 0 02/12/20 Active glucagon (BAQSIMI) 3 mg/actuation spray,non-aero solIndications :hypoglycemic disorder Administer 1 spray (3 mg total) into one nostril as needed (severe hypoglycemia, repeat in 15 mins if needed with new device) 2 each 03/12/20 23 Active blood-glucose transmitter (Dexcom G6 Transmitter) device Use as directed 3 each 03/12/20 23 Active blood-glucose meter,continuo us (Dexcom G6 Cloth Printing Back Tender) misc Use as directed 1 each 03/12/20 23 Active blood-glucose meter,continuo us (Dexcom G7 Cloth Printing Back Tender) miscIndication s:Type 2 diabetes mellitus with diabetic [...] glucose levels 3 times daily. 300 each 10/16/19 25 Active pen needle, diabetic (Unifine Pentips) 32 gauge x 5/32 needleIndicati ons:Type 2 diabetes mellitus with diabetic polyneuropathy , with long-term current use of insulin (HCC) Use twice daily with insulin pen 200 each 3 10/21/19 25 Active pen needle, diabetic (Easy Comfort Pen Criders) 31 gauge x 5/16 needle Use twice daily with insulin pen 200 each 3 06/14/20 20 025 Discontinued(R eorder) FreeStyle Lite Strips strip Check glucose 3-4 daily 350 each 3 09/15/19 25 025 Discontinued(R eorder) pen needle, diabetic (Easy Comfort Pen Criders) 31 gauge x 5/16 needleIndicati ons:Type 2 diabetes mellitus with diabetic polyneuropathy , with long-term current use of insulin (HCC) Use twice daily with insulin pen 200 each 3 10/16/19 25 025 Discontinued Active Problems Problem Noted Date Diagnosed Date Chronic pain syndrome 06/03/2020 Overview (06/03/2020): Added automatically from request for surgery [id number] Subclinical hypothyroidism 07/08/2018 Assessment & Plan (07/08/2018 3:12 PM HORTICULTURALIST): Clinically euthyroid w/o treatment and last TSH normal 3.28 and may be age related elevation previously. -monitor with period TFT Mixed hyperlipidemia 07/08/2018 Assessment & Plan (07/08/2018 3:13 PM HORTICULTURALIST): LDL 57 excellent control on lipitor TG at goal 12/2017 on lovaza 4g Iron deficiency anemia 07/08/2018 Assessment & Plan (07/08/2018 3:13 PM HORTICULTURALIST): Pt has been evaluated by hematology and appropriate work up performed HTN (hypertension), benign 12/19/2017 Major depression 12/19/2017 Spinal stenosis 12/19/2017 Type 2 diabetes mellitus wit h neurologic complication, with long-term current use of insulin 02/15/2015 Assessment & Plan (07/08/2018 3:12 PM HORTICULTURALIST): Controlled A1c 7.4, but may be discrepant [...] Date Smoking Tobacco: Former Cigarettes Q uit: 2004 Tobacco Cessation:Counseling Given: Not Answered Alcohol Use Standard Drinks/Week Comments Not Currently 0 (1 standard drink = 0.6 oz pur e alcohol) Comments Unknown Sex and Gender Information Value Date Recorded Sex Assigned at Not on file Legal Sex Female 2:40 AM HORTICULTURALIST Gender Identity Not on file Sexual Orientation Not on file Last Filed Vital Signs Vital Sign Reading Time Taken Comments Blood Pressure 111/49 10/27/2024 1:25 PM CDT Pulse 62 10/27/2024 1:25 PM CDT Temperature 36.8 C (98.2 F) 10/27/2024 1:25 PM CDT Respiratory Rate 18 06/25/2020 7:55 AM HORTICULTURALIST Oxygen Saturation 94% 06/25/2020 7:55 AM HORTICULTURALIST Inhaled Oxygen Concentration - - Weight 77.1 kg (170 lb) 10/27/2024 1:25 PM CDT Height 168.4 cm (5' 6.3 ) 10/27/2024 1:25 PM CDT Body Mass Index 27.19 10/27/2024 1:25 PM CDT Plan of Treatment Not on file Medical Devices Implanted Type Area Technical Service Representative Device Identifier Shelf Expiration Date Model / Serial / Lot Medtronic Neuro 8637-20 Synchromed Ii .78in [place] Filter Mesh Pouch Programmable - [id number] - [id number] Implanted:Qty: 1 on 06/24/2020 by Sabrina Whiting MD at [facility] [employer] 11/23/2021 8637 -20 / [id number] / Procedures Procedure Name Priority Date/Time Associated Diagnosis Comments POCT HEMOGLOBIN A1C Routine 10/27/2024 1 :35 PM CDT Type 2 diabetes mellitus with [...] Health Maintenance Results * POCT hemoglobin A1c (10/27/2024 1:35 PM CDT) Hemoglobin A1C, POC 9.3 4.0 - 5.6 % Blood 10/27/2024 1:35 PM CDT Aleksander Willis MD POINT OF CARE TEST ORDER ARTEMIO Final Result * (ABNORMAL) Lipid panel (03/12/2023 2:05 PM CDT) Triglycerides 160(H) <150 mg/dL [facility] Comment: Desirable: <150 mg/dL, fasting <175 mg/dL, non-fasting Persistently elevated triglycerides may enhance atherosclerotic cardiovascular disease. Total Cholesterol 123 <200 mg/dL [facility] Total HDL-C Direct 31(L) >50 mg/dL [facility] Comment: A low HDL-C may be inidcative of metabolic syndrome and enhance atherosclerotic cardiovascular disease risk. Non-HDL cholesterol 92 <220 mg/dL [facility] [place] LDL Chol 60 <190 mg/dL [facility] Comment: The inaccuracy of the [place] equation [...] PM CDT 03/12/2023 3:33 PM CDT Narrative [facility] - 03/12/2023 4:19 PM CDT Current interpretive data was last updated July 14, 2021. For adults ages 40-79, the ACC/AHA recommends discussing your 10-year atherosclerotic cardiovascular disease risk with your health care provider. [email or web address]://www.acc.org/ASCVDApp us Urbano Childers MD LAB BLOOD ORDERABLES Final Resu lt [facility] * [...] Recently Relevant to Health Maintenance Insurance MEDICARE FOR LIFE [facility] Address: [facility] [address] [place] [address] MEDICARE FOR LIFE Advance Directives For more information, please contact: [phone] * Full Code (Latest Code Status on File) Date Activated Date Inactivated Comments 06/24/2020 4:31 PM 06/25/2020 3:40 PM Care Teams Sales Enablement Manager Relationship Specialty Start Date End Date Axel Price MD [address] [facility] [address] [place] [address] PCP - General 02/05/17
--- OUTSIDE RECORDS SUMMARY | 2024-10-30 10:50 | XMS_ITS | Continuity of Care Document ---
Author Name [facility] Organization [facility] Care Team Providers Care Cake Puncher Name Role Phone [facility] Unavailable Unavailable Medications Combined list of outpatient [...] Site Reaction Lot Number CVX Code Drug Mailroom Supervisor Status Comments Source SARS-CoV-2 mRNA(rosie tcd-chwb-xqf) vac 2021 [facility] complet ed SARS-CoV- 2 mRNA(vikram varghese-t ris-suc)v ac 01/04/22 Given Ambulat ory Pharmac y influenza, seasonal, injectable 2010 141 [employer] complet ed influenza , seasonal, injectabl e 05/04/11 Given Ambulat ory Pharmac y influenza virus vaccine,split 2004 Mark ht Arm [id number] 15 sanofi pasteur complet ed influenza virus vaccine,s plit 07/11/05 Given Ambulat ory Pharmac y influenza virus vaccine,split 2004 [id number] 15 sanofi pasteur complet ed influenza virus vaccine,s plit 07/11/05 Given Ambulat ory Pharmac y influenza virus vaccine,split 2003 zzLef t Arm [id number] 15 sanofi pasteur complet ed influenza virus vaccine,s plit 07/12/04 Given Ambulat ory Pharmac y influenza virus vaccine,split 2003 [id number] 15 sanofi pasteur complet ed influenza virus vaccine,s plit 07/12/04 Given Ambulat ory Pharmac y tuberculin purified protein derivative 2002 zzLef t Arm [id number] 96 sanofi pasteur complet ed Patient Tolerance : Negative Ambulat ory Pharmac y tuberculin purified protein derivative 2002 [id number] 96 sanofi pasteur complet ed tuberculi n purified protein derivativ e 07/16/03 Given Ambulat ory Pharmac y influenza virus vaccine, whole virus 2002 zzLef t Arm [id number] 16 sanofi pasteur complet ed influenza virus vaccine, whole virus 05/27/03 Given Ambulat ory Pharmac y influenza virus vaccine, whole virus 2002 [id number] 16 sanofi pasteur complet ed influenza virus vaccine, whole virus 05/27/03 Given Ambulat ory Pharmac y influenza virus vaccine, whole virus 2001 zzLef t Arm [id number] 16 sanofi pasteur complet ed influenza virus vaccine, whole virus 07/07/02 Given Ambulat ory Pharmac y influenza virus vaccine, whole virus 2001 [id number] 16 sanofi pasteur complet ed influenza virus vaccine, whole virus 07/07/02 Given Ambulat ory Pharmac y influenza virus vaccine, whole virus [id number] sanofi pasteur complet ed influenza virus vaccine, whole virus 07/02/01 Given Ambulat ory Pharmac y influenza virus vaccine, whole virus 1998 [id number] 16 [facility] complet ed influenza virus vaccine, whole virus 06/14/99 Given Ambulat ory Pharmac y influenza virus vaccine, whole virus 1998 [id number] [facility] ed influenza virus vaccine, whole virus 06/14/99 Given Ambulat ory Pharmac y Procedures Combined list of: 1) Procedures from [facility] facilities [facility], not all VA non-surgical procedures [...] Plan No data available for this section 10/30/2024 Ambulatory Pharmacy Functional Status Combined list of recent functional and cognitive assessments recorded at [facility] of Defense and Veterans Affairs (CT).VA Functional [place] Measurement (FIM) Scale: 1 = Total Assistance (Subject = 0% +), 2 = Maximal Assistance (Subject = 25% +), 3 = Moderate Assistance (Subject = 50% +), 4 = Minimal Assistance (Subject = 75% +), 5 = Supervision, 6 = Modified [place] (Device), 7 = Complete [place] (Timely, Safely). Assessment Date/Time Source Assessment Type Assessment Skill Assessment Score Assessment Details No data available for this section
--- OUTSIDE RECORDS SUMMARY | 2024-10-30 10:50 | XMS_ITS | Encounter Summary ---
Author Organization [facility] Address [address] [place] [address] Phone Care Team Providers Care Dough Catcher Name Role Phone Axel Price MD Primary Care Provider Encounter Details Date Type Department Care Team (Late st Contact Info) Description 09/07/2024 Telephone [facility] Endocrinology Metabolism and Lipid [address] [facility] [address] [place] [address] Dago Garza RN Social History Tobacco Use Types Packs/Day Years Used Date Smoking Tobacco: Former Cigarettes Q uit: 2005 Alcohol Use Standard Drinks/Week Comments Not Currently 0 (1 standard drink = 0.6 oz pur e alcohol) Comments Unknown Sex and Gender Information Value Date Recorded Sex Assigned at Not on file Legal Sex Female 2:40 AM RIVET SPINNER Gender Identity Not on file Sexual Orientation Not on file documented as of this encounter Plan of Treatment Not on file documented as of this encounter Visit Diagnoses Not on filedocumented in this encounter Care Teams Dough Catcher Relationship Specialty Start Date End Date Axel Price MD [address] [facility] [address] [place] [address] PCP - General 02/05/17 documented as of this encounter
--- OUTSIDE RECORDS SUMMARY | 2024-10-30 10:50 | XMS_ITS | Encounter Summary ---
Author Organization [facility] [employer] Address [address] [place] [address] Care Team Providers Care Training And Development Professional Name Role Phone Axel Price MD Primary Care Provider [phone] Encounter Details Date Type Department Care Team (Late Contact Info) Description 08/10/2022 Telephone [facility] Oncology and [facility] [address] [place] [address] Jaylen Chapin MD [address] [place] [phone] Social History Tobacco Use Types Packs/Day [...] Coronavirus/COVID-19? No / Unsure 08/10/2022 10:38 AM DIRECTOR OF AUDIOLOGY documented as of this encounter Plan of Treatment Upcoming Encounters Date Type Department Care Team (Late Contact Info) Description 01/29/2025 11:00 AM CDT Office Visit [facility] Oncology and Hematology [facility] [address] [place] [address] Jason Buckley MD [address] [facility] [address] [place] [phone] Scheduled Orders Name Type Priority Associated Diagnoses Orde r Schedule CBC WITH DIFFERENTIAL Lab Routine Iron deficiency anemia secondary to inadequate dietary iron intake Expected: 08/10/2022, Expires: 08/10/2023 documented as of this encounter Visit Diagnoses Diagnosis Iron deficiency anemia secondary to inadequate dietary iron intake- Primary documented in this encounter Care Teams Training And Development Professional Relationship Specialty Start Date End Date Axel Price MD [address] [facility] [address] [place] [address] PCP - General Family Practice 12/19/17 documented as of this encounter
--- OUTSIDE RECORDS SUMMARY | 2024-10-30 10:50 | XMS_ITS | Continuity of Care Document ---
Author Organization [facility] Address [address] [place] [address] Phone Care Team Providers Care Independent Video Producer Name Role Phone [facility] [employer] Unavailable [...] Diagnoses Date Provider Providers Copied on Encounter [facility], [address] [place] [address] [address], [place], [place], [id number], [place] tel:[phone] SEC [facility] No Information 7 9 [facility] [employer] . [address] [facility], [facility] [address], [place], [id number], [place]. tel:[phone] Referring Provider: Ernie Perdomo, [address], [place], [address]. tel:[phone] magana Provider: Belen Webster, [address] [facility], [place], [address]. tel:[phone] [facility], [address], [place], [place], [address], [place] tel:[phone] SEC [facility] No Information [phone] Doisy Edward. [address] [facility] , [address], [place], [address], [place]. tel:[phone] Office/outpat ient Visit, [facility], [address], [place], [place], [address], tel:[phone] [facility] No Information 0 [phone] Frankel OD Akira. [address] [facility] , [address], [place], [place], [facility], [place]. tel:[phone] [facility], [address], [place], [place], [address], tel:[phone] SEC [facility] No Information 0 [phone] Frankel OD Akira. [address] [facility] , [address], [place], [place], [facility], [place]. tel:[phone] [facility], [address], [place], [place], [address], tel:[phone] [facility] No Information 0 [phone] Scanlon Neeta. [address] [facility] , [address], [place], [place], [facility], . tel:[phone] Family History Family Member Type Diagnosis Age At Onset No Information Payers Payer name Insurance type Covered democrat ID Authoriza tion(s) No Information Social History [...]
--- OUTSIDE RECORDS SUMMARY | 2024-10-30 10:50 | XMS_ITS | Clinical Summary ---
Author Organization [facility] Address [address] [place] [address] Care Team Providers Care Revenue Stamp Cutter Name Role Phone Unavailable Primary Care Provider Unavailabl e Social History Tobacco Use Types Packs/Day Years Used Date Smoking Tobacco: Never Assessed Comments Unknown Sex and Gender Information Value Date Recorded Sex Assigned at Not on file Legal Sex Female 11:26 PM RUBBER CUTTER AND SHAPE CARVER Gender Identity Not on file Sexual Orientation [...]
--- OUTSIDE RECORDS SUMMARY | 2024-10-30 10:50 | XMS_ITS | Clinical Summary ---
Author Organization [facility] Address [address] [place] [address] Care Team Providers Care Phone Representative Name Role Phone Axel Price MD Primary [...] every 6 hours as needed Active marlin inv-vsz-X7-Zn- marble coper-man-bor 250-40-125 mg-mg-unit tablet Take by mouth. 06/20/20 [...] by mouth 3 times daily Active omega 5-uth-jca-fish oil (OMEGA-3) 350 mg-235 mg- 90 mg-597 [...] 23 Active blood-glucose meter,continuo us (Dexcom G6 Self Sealing Fuel Tank Repairer) misc Use as directed 1 each 03/12/20 23 Active blood-glucose meter,continuo us (Dexcom G7 Self Sealing Fuel Tank Repairer) miscIndication s:Type 2 diabetes mellitus with diabetic [...] Active pen needle, diabetic (Easy Comfort Pen [place]) 31 gauge x 5/16 needle Use twice daily with insulin pen 200 each 3 06/14/20 20 025 Discontinued(R eorder) FreeStyle Lite Strips strip Check glucose 3-4 daily 350 each 3 09/15/19 25 025 Discontinued(R eorder) pen needle, diabetic (Easy Comfort Pen [place]) 31 gauge x 5/16 needleIndicati ons:Type 2 diabetes mellitus with diabetic polyneuropathy , with long-term current use of insulin (HCC) Use twice daily with insulin pen 200 each 3 10/16/19 25 025 Discontinued Active Problems Problem Noted Date Diagnosed Date Chronic pain syndrome 06/03/2020 Overview (06/03/2020): Added automatically from request for surgery [id number] Subclinical hypothyroidism 07/08/2018 Assessment & Plan (07/08/2018 3:12 PM CRATING AND MOVING ESTIMATOR): Clinically euthyroid w/o treatment and last TSH normal 3.28 and may be age related elevation previously. -monitor with period TFT Mixed hyperlipidemia 07/08/2018 Assessment & Plan (07/08/2018 3:13 PM CRATING AND MOVING ESTIMATOR): LDL 57 excellent control on lipitor TG at goal 12/2017 on lovaza 4g Iron deficiency anemia 07/08/2018 Assessment & Plan (07/08/2018 3:13 PM CRATING AND MOVING ESTIMATOR): Pt has been evaluated by hematology and appropriate work up performed HTN (hypertension), benign 12/19/2017 Major depression 12/19/2017 Spinal stenosis 12/19/2017 Type 2 diabetes mellitus wit h neurologic complication, with long-term current use of insulin 02/15/2015 Assessment & Plan (07/08/2018 3:12 PM CRATING AND MOVING ESTIMATOR): Controlled A1c 7.4, but may be discrepant [...] Description 10/27/2024 1:40 PM CDT Office Visit [facility] Endocrinology Metabolism and Lipid [address] [facility] 5th [place] [phone] Aleksander Willis MD Type 2 diabetes mellitus with diabetic polyneuropathy, with long-term current use of insulin (HCC) (Primary Dx) 10/20/2024 Telephone [facility] Endocrinology Metabolism and Lipid [address] [facility] 5th [place] [address] [place] [phone] Dago Garza RN 09/15/2024 Telephone [facility] Endocrinology Metabolism and Lipid [address] [facility] 5th [place] [address] [place] [phone] Varsha Blanco RMA 09/07/2024 Telephone [facility] Endocrinology Metabolism and Lipid [address] [facility] [address] [place] [address] Dago Garza, RN 09/07/2024 Telephone [facility] Endocrinology Metabolism and Lipid [address] [facility] [address] [place] [address] Dago Garza, RN from Last 3 Months Immunizations Immunization [...] transient cerebra l ischemia - (Added by TW Conv) Cancer (HCC) Sleep apnea GERD (gastroesophageal reflux disease) Type 2 diabetes mellitus (HCC) Cerebrovascular accident (CVA) (HCC) Family History Medical History Relation Name Comments Thyroid disease Daughter Family histo ry of thyroid problem - (Added by TW Conv) Heart disease Father Family history of cardiac disorder - (Added by TW Conv) Cancer Other 1 Family history of Cancer; Heart disease Other 2 Family history of Heart disease; Stroke Other 3 Family history of Stroke; Thyroid disease Sister Family histo ry of thyroid problem - (Added by TW Conv) Heart disease Son Family history of cardiac disorder - (Added by TW Conv) Relation Name Status Comments Daughter Father [...] on file Legal Sex Female 2:40 AM CRATING AND MOVING ESTIMATOR Gender Identity Not on file Sexual Orientation Not on file Obstetrics History Last Filed Vital Signs Vital Sign Reading Time Taken Comments Blood Pressure 111/49 10/27/2024 1:25 PM CDT Pulse 62 10/27/2024 1:25 PM CDT Temperature 36.8 C (98.2 F) 10/27/2024 1:25 PM CDT Respiratory Rate 18 06/25/2020 7:55 AM CRATING AND MOVING ESTIMATOR Oxygen Saturation 94% 06/25/2020 7:55 AM CRATING AND MOVING ESTIMATOR Inhaled Oxygen Concentration - - Weight 77.1 kg (170 lb) 10/27/2024 1:25 PM CDT Height 168.4 cm (5' 6.3 ) 10/27/2024 1:25 PM CDT Body Mass Index 27.19 10/27/2024 1:25 PM CDT Plan of Treatment Health Maintenance [...] eGFR 03/12/2024 03/12/2023 Influenza Vaccine (#1) 2024 , 05/13/2017, 05/03/2016, Additional history exists Hemoglobin A1C 04/29/2025 10/27/2024, 10/2023, 09/06/2023, Additional history exists Medical Devices Implanted Type Area Team Truck Driver Device Identifier Shelf Expiration Date Model / Serial / Lot Medtronic Neuro 8637-20 Synchromed Ii .78in [place] Filter Mesh Pouch Programmable - [id number] - [id number] Implanted:Qty: 1 on 06/24/2020 by Sabrina Whiting MD at [facility] [employer] 11/23/2021 8637 -20 / [id number] / Procedures Procedure Name Priority Date/Time Associated [...] 2:05 PM CDT) Triglycerides 160(H) <150 mg/dL [facility] Comment: Desirable: <150 mg/dL, fasting <175 mg/dL, non-fasting Persistently elevated triglycerides may enhance atherosclerotic cardiovascular disease. Total Cholesterol 123 <200 mg/dL [facility] Total HDL-C Direct 31(L) >50 mg/dL [facility] Comment: A low HDL-C may be inidcative of metabolic syndrome and enhance atherosclerotic cardiovascular disease risk. Non-HDL cholesterol 92 <220 mg/dL [facility] [place] LDL Chol 60 <190 mg/dL [facility] Comment: The inaccuracy of the [...] PM CDT 03/12/2023 3:33 PM CDT Narrative [facility] - 03/12/2023 4:19 PM CDT Current interpretive data was last updated July 14, 2021. For adults ages 40-79, the ACC/AHA recommends discussing your 10-year atherosclerotic cardiovascular disease risk with your health care provider. [email or web address]://www.acc.org/ASCVDApp us Urbano Childers MD LAB BLOOD ORDERABLES Final Resu lt [facility] * [...] MD LAB BLOOD ORDERABLES Final Resu lt [facility] from Last 3 Months or Most Recently Relevant to Health Maintenance Insurance MEDICARE [employer] MEDICARE FOR LIFE Advance Directives For more information, please contact: [phone] * Full Code (Latest Code Status on File) Date Activated Date Inactivated Comments 06/24/2020 4:31 PM 06/25/2020 3:40 PM Care Teams Phone Representative Relationship Specialty Start Date End Date Axel Price MD [address] [facility] [address] [place] [address] PCP - General 02/05/17
--- OUTSIDE RECORDS SUMMARY | 2024-10-30 10:50 | XMS_ITS | Clinical Summary ---
Author Organization [facility] Address [address] [place] [address] Care Team Providers Care Haulpak Driver Name Role Phone Axel Price MD Primary Care Provider [phone] Allergies Active Allergy Reactions Criticality Noted Date [...] Rash Low 08/20/2007 Medications NARCAN 4 mg/actuation [place], Non-Aerosol SPRAY ONCE into nostril FOR opioid [...] 25 mg tablet Take by mouth daily fox raiser. Active montelukast (SINGULAIR) 10 mg tablet Take [...] tablet losartan 25 mg tablet Active Insulin [place], Disposable, (Sure Comfort Pen Needle) 31 gauge [...] Description 01/29/2025 11:00 AM CDT Office Visit [facility] Oncology and Hematology [facility] [address] [facility] [address] [place] [address] Jason Buckley MD [address] [facility] [address] [place] [address] Health Maintenance Due Date Last [...] A AND B FOR LIFE Care Teams Haulpak Driver Relationship Specialty Start Date End Date Axel Price MD [address] [facility] [address] [place] [address] PCP - General Family Practice 12/19/17
== END 2024-10-30 09:43 | disposition home or self-care (01) ==
LOC: CHSIMG 09:47
PROVIDERS: Anesthesiology; Surgery; PCP Family Medicine; Visit Provider Physician Assistant
DX: Z01.818 Encounter for other preprocedural examination (principal); M79.5 Residual foreign body in soft tissue; N18.30 Chronic kidney disease, stage 3 unspecified; Z78.0 Asymptomatic menopausal state; Z12.31 Encounter for screening mammogram for malignant neoplasm of breast; M85.88 Other specified disorders of bone density and structure, other site; K76.0 Fatty (change of) liver, not elsewhere classified
CPT/HCPCS: 36415; 77063; 77067; 77080; 85025; 85610; 85730

== ENCOUNTER 2024-11-03 02:09 | Day surgery (SDC) | payer MEDICARE, OTHER, SELFPAY ==
--- NOTE | 2024-10-28 08:47 | PC.NURSE ---
Report to the Outpatient Waiting Room, entrance under the green pavilion located off [facility], at time __12:30 PM on date _11/03/24 . Planned Procedure Time: __2:30 PM .? Time changes happen often and if your time is changed the preop area will call you the afternoon before. - You and your visitor will be asked to self-screen and do not enter if you have any COVID symptoms. Please call surgeon if you need to reschedule. - A mask is optional within the hospital at this time. Patients may have clear liquids (water, carbonated beverages, clear teas, apple juice) until 3 hours prior to surgery (11:30 AM) with a maximum of 20 ounces. - No food from midnight until time of surgery and no smoking, or chewing tobacco (or any form of nicotine). No chewing gum, candy or mints. Take only the following medications with a SIP of water on the morning of surgery: ___METOPROLOL,FLUOXETINE,BUSPIRONE,TAKE 1/2 OF AM INSULIN DO NOT STOP ANY OF YOUR OTHER PRESCRIPTION MEDICATIONS PRIOR TO SURGERY EXCEPT THE FOLLOWING Hold all vitamins and supplements for 3 days per anesthesiologist.LAST DOSE 10/30/24 Medications to discontinue per physician NONE Please no make-up, nail andorran, hairspray, perfume, deodorant, or body powder the day of surgery.? No jewelry (including any body piercings) or valuables the day of surgery, leave them at home.? Please take a shower or bath the night before, or the morning of, surgery with an antibacterial soap.? Wear comfortable, loose fitting clothing.? Children are encouraged to wear pajamas. - Jewelry must be removed prior to entering the operating room.? Rings and piercings that are not removed may be cut off. - The hospital will not accept responsibility for valuables.? - Please leave all valuables, including medications, at home the day of surgery. If you are going home after surgery, a licensed [employer] driver must drive you home.? - NO public transportation without another adult if you receive anesthesia. - We recommend that an adult stay with you for 24 hours following discharge. - We also recommend that you do not drive, make important decision, drink alcoholic beverages, or take any drugs that were not prescribed by your health care provider for at least 24 hours after your discharge time. Follow any additional instructions given to you from your surgeon. Telephone instructions given to __PATIENT and asked if any additional questions and then verbalized understanding. Patient advised to call surgeon office or pre surgery nurse liaison [phone] if any additional questions.
[2024-10-28 09:26] VITALS: BMI 27.4
--- NOTE | ~2024-11-03 | US_ITS ---
EXAMINATION: US abdomen limited DATE: 11/03/2024 16:30 INDICATION: Foreign body with 2 insulin needle fragments within the anterior abdominal wall TECHNIQUE: Multiple grayscale ultrasound images of the anterior abdominal wall were obtained to ident camilla location of insulin needle fragments. COMPARISON: Radiographs dated 10/20/2024 FINDINGS: There is a region of skin thickening and underlying subcutaneous edema in the region of interest katie g the midline of the anterior abdominal wall. No linear foreign bodies identified which could be rela noreen to either the small size of the needle fragment or due to incorrect location of imaging with the patient only able to find a relatively general suspected location. IMPRESSION: 1. Unsuccessful attempt at identifying a small insula needle fragment within the subcutaneous tissues at the anterior abdominal wall. Reviewed, dictated and finalized at location B. IMPRESSION: 1. Unsuccessful attempt at identifying a small insula needle fragment within th e subcutaneous tissues at the anterior abdominal wall.
--- OUTSIDE RECORDS SUMMARY | 2024-11-03 02:13 | XMS_ITS | Encounter Summary ---
Author Organization [facility] [employer] Address [address] [place] [address] Care Team Providers Care Funeral Home Associate Name Role Phone Axel Price MD Primary Care Provider [phone] Encounter Details Date Type Department Care Team (Late Contact Info) Description 08/10/2022 Telephone [facility] Oncology and [facility] [address] [place] [address] Jaylen Chapin MD [address] [place] [address] Social History Tobacco Use Types Packs/Day Years Used Date Smoking Tobacco: Former Cigarettes 5 - 2004 Smokeless Tobacco: Never Alcohol [...] Coronavirus/COVID-19? No / Unsure 08/10/2022 10:38 AM KEEPER HELPER documented as of this encounter Plan of Treatment Upcoming Encounters Date Type Department Care Team (Late Contact Info) Description 01/29/2025 11:00 AM CDT Office Visit [facility] Oncology and Hematology [facility] [address] [place] [address] Jason Buckley MD [address] [facility] [address] [place] [phone] Scheduled Orders Name Type Priority Associated Diagnoses Orde r Schedule CBC WITH DIFFERENTIAL Lab Routine Iron deficiency anemia secondary to inadequate dietary iron intake Expected: 08/10/2022, Expires: 08/10/2023 documented as of this encounter Visit Diagnoses Diagnosis Iron deficiency anemia secondary to inadequate dietary iron intake- Primary documented in this encounter Care Teams Funeral Home Associate Relationship Specialty Start Date End Date Axel Price MD [address] [facility] [address] [place] [address] PCP - General Family Practice 12/19/17 documented as of this encounter
--- OUTSIDE RECORDS SUMMARY | 2024-11-03 02:13 | XMS_ITS | Continuity of Care Document ---
Author Name [facility] Organization [facility] Care Team Providers Care Chair Upholsterer Name Role Phone [facility] Unavailable Unavailable Medications Combined list of outpatient [...] Site Reaction Lot Number CVX Code Drug Political Science Faculty Member Status Comments Source SARS-CoV-2 mRNA(rosie kvx-dbww-enw) vac 2021 217 [facility] complet ed SARS-CoV- 2 mRNA(vikram varghese-t ris-suc)v ac 01/04/22 Given Ambulat ory Pharmac y influenza, seasonal, injectable 2010 141 [employer] complet ed influenza , seasonal, injectabl e 05/04/11 Given Ambulat ory Pharmac y influenza virus vaccine,split 2004 Mark ht Arm [id number] 15 sanofi pasteur complet ed influenza virus vaccine,s plit 07/11/05 Given Ambulat ory Pharmac y influenza virus vaccine,split 2004 [id number] 15 sanofi pasteur complet ed influenza virus vaccine,s plit 07/11/05 Given Ambulat ory Pharmac y influenza virus vaccine,split 2003 zzLef t Arm [id number] 15 sanofi pasteur complet ed influenza virus vaccine,s plit 07/12/04 Given Ambulat ory Pharmac y influenza virus vaccine,split 2003 [id number] 15 sanofi pasteur complet ed influenza virus vaccine,s plit 07/12/04 Given Ambulat ory Pharmac y tuberculin purified protein derivative 2002 zzLef t Arm [id number] 96 sanofi pasteur complet ed Patient Tolerance : Negative Ambulat ory Pharmac y tuberculin purified protein derivative 2002 [id number] 96 sanofi pasteur complet ed tuberculi n purified protein derivativ e 07/16/03 Given Ambulat ory Pharmac y influenza virus vaccine, whole virus 2002 zzLef t Arm [id number] 16 sanofi pasteur complet ed influenza virus vaccine, whole virus 05/27/03 Given Ambulat ory Pharmac y influenza virus vaccine, whole virus 2002 [id number] 16 sanofi pasteur complet ed influenza virus vaccine, whole virus 05/27/03 Given Ambulat ory Pharmac y influenza virus vaccine, whole virus 2001 zzLef t Arm [id number] 16 sanofi pasteur complet ed influenza virus vaccine, whole virus 07/07/02 Given Ambulat ory Pharmac y influenza virus vaccine, whole virus 2001 [id number] 16 sanofi pasteur complet ed influenza virus vaccine, whole virus 07/07/02 Given Ambulat ory Pharmac y influenza virus vaccine, whole virus [facility] [id number] 16 sanofi pasteur complet ed influenza virus vaccine, whole virus 07/02/01 Given Ambulat ory Pharmac y influenza virus vaccine, whole virus 1998 [id number] 16 [facility] complet ed influenza virus vaccine, whole virus 06/14/99 Given Ambulat ory Pharmac y influenza virus vaccine, whole virus 1998 [id number] 16 [facility] influenza virus vaccine, whole virus 06/14/99 Given Ambulat ory Pharmac y Procedures Combined list of: 1) Procedures from [facility], not all [facility] non-surgical procedures [...] Plan No data available for this section 11/03/2024 Ambulatory Pharmacy Functional Status Combined list of recent functional and cognitive assessments recorded at [facility] Defense and [facility] ([place] Functional Davidson Measurement (FIM) Scale: 1 = Total Assistance (Subject = 0% +), 2 = Maximal Assistance (Subject = 25% +), 3 = Moderate Assistance (Subject = 50% +), 4 = Minimal Assistance (Subject = 75% +), 5 = Supervision, 6 = Modified Davidson (Device), 7 = Complete Davidson (Timely, Safely). Assessment Date/Time Source Assessment Type Assessment Skill Assessment Score Assessment Details No data available for this section
--- OUTSIDE RECORDS SUMMARY | 2024-11-03 02:13 | XMS_ITS ---
Author Organization [facility] Address [address] [facility] [address] [place] [id number] Care Team Providers Care Handle Turner Name Role Phone RENETTA RIVERO Unavailable [phone] Axel Price Unavailable Unavailable ARCHIE REDD Unavailable [phone] REASON FOR VISIT *General care Encounters Encounter Location Date Provider Diagnosis [address] [id number] 05/21/2024 ARCHIE REDD Plan Of Treatment Next Appt Details Provider Name:RENETTA RIVERO, 02:20:00 PM, [address], [facility] [address], [place], [id number], Progress Notes * Matthew MUNGUIAB:[birth year] 50 (74 yo F)Acc No.[id number]:05/21/2024 Patient: Ce YAN Provider: Neeta REDD :1950 A ge:73 Y S ex:Female Date:05/21/2024 Address: [address], [facility] Subjective: * Chief Complaints: * 1 . *General care. * Medical History: Objective: * Vitals: Assessment: Plan: * Treatment: * Billing Information: * Visit Code: * Procedure Codes: * Electronic signature of SANDOR REDD DPM on 11/03/2024 at 02:13 AM CDT Sign off status: Pending * Provider: Neeta REDD Date: 1 Generated for Dave edmonds/Chapis/Sharon on: 0 11/03/2024 02:13 AM CDT
--- OUTSIDE RECORDS SUMMARY | 2024-11-03 02:13 | XMS_ITS | Patient Health Record ---
Author Organization [facility] Address [address] [place], [place] [address] Care Team Providers Care Mixer Tender Name Role Phone RENETTA RIVERO Unavailable [phone] Axel Price Unavailable Unavailable ARCHIE REDD Unavailable [phone] Allergies Allergen (clinical drug ingredient) Drug/Non Drug [...] 01/16/2024 Encounters Encounter Location Date Provider Diagnosis [address] [id number] 11/14/2023 ARCHIE REDD Other hammer toe(s) (acquired), right foot M20.41 ; Tinea unguium B35.1 ; Other hammer toe(s) (acquired), left foot M20.42 ; Pain in left toe(s) M79.675 ; Pain in right toe(s) M79.674 ; Unspecified atherosclerosis of [place] arteries of extremities, bilateral legs I70.203 and Type 2 diabetes mellitus with diabetic peripheral angiopathy without gangrene E11.[address] [id number] 01/16/2024 ARCHIE REDD Other hammer toe(s) (acquired), right foot M20.41 ; Tinea unguium B35.1 ; Other hammer toe(s) (acquired), left foot M20.42 ; Pain in left toe(s) M79.675 ; Pain in right toe(s) M79.674 ; Unspecified atherosclerosis of [place] arteries of extremities, bilateral legs I70.203 and Type 2 diabetes mellitus with diabetic peripheral angiopathy without gangrene E11.[address] [id number] 03/19/2024 ARCHIE REDD Other hammer toe(s) (acquired), right foot M20.41 ; Tinea unguium B35.1 ; Other hammer toe(s) (acquired), left foot M20.42 ; Pain in left toe(s) M79.675 ; Pain in right toe(s) M79.674 ; Unspecified atherosclerosis of [place] arteries of extremities, bilateral legs I70.203 and Type 2 diabetes mellitus with diabetic peripheral angiopathy without gangrene E11.51 [facility] [place] [address] [place] [id number] 05/25/2024 RENETTA SNOOK Tinea unguium B35.1 ; Pain in right foot M79.671 ; Pain in left foot M79.672 ; Atherosclerosis of [place] arteries of extremities with intermittent claudication, bilateral legs I70.213 and Acquired keratosis [keratoderma] palmaris et plantaris L85.1 [facility] [place] [address] [place] [id number] 09/07/2024 RENETTA SNOOK Tinea unguium B35.1 ; Pain in right foot M79.671 ; Pain in left foot M79.672 ; Atherosclerosis of [place] arteries of extremities with intermittent claudication, bilateral [...] toe(s) (ICD-10 - M79.675) 09/07/2024 Atherosclerosis of [place] arteries of extremities with intermittent claudication, bilateral legs (ICD-10 - I70.213) 05/25/2024 Atherosclerosis of [place] arteries of extremities with intermittent claudication, bilateral [...] (ICD-10 - M79.674) 11/14/2023 Unspecified atherosclerosis of [place] arteries of extremities, bilateral legs (ICD-10 - I70.203) Patient educated on risks and aggravating factors of PVD, including conservative treatment options such as a diet and exercise regimen to aid in slowing progression of vascular disease 01/16/2024 Unspecified atherosclerosis of [place] arteries of extremities, bilateral legs (ICD-10 - I70.203) Patient educated on risks and aggravating factors of PVD, including conservative treatment options such as a diet and exercise regimen to aid in slowing progression of vascular disease 03/19/2024 Unspecified atherosclerosis of [place] arteries of extremities, bilateral legs (ICD-10 - [...] Name:RENETTA RIVERO, 02:20:00 PM, [address], [facility], [place], [place], [id number], Insurance Providers Payer Name Payer Address Payer Phone Subscriber Number Group Number Insured Name Patient Relationship to Insured Coverage Start Date Coverage End Date Medicare Part B [facility] [address] [place] [address] [id number] Ce Lewis Self - patient is the insured for Life (All Regions) [address] [place], [place] [id number] Ce Lewis Self - patient is the insured Medical (General) History Medical History History ICD Code acid reflux stroke Cancer (Kidney) anemia Open Sores Arthritis Sleep apnea Diabetic Heart Disease depression hypertension Abnormal Bleeding
--- OUTSIDE RECORDS SUMMARY | 2024-11-03 02:13 | XMS_ITS | Continuity of Care Document ---
Author Organization [facility] Address [address] [place] [address] Phone Care Team Providers Care Landfill Gas Collection System Operator Name Role Phone [facility] [employer] Unavailable [...] Diagnoses Date Provider Providers Copied on Encounter [facility], [address] [place] [address] [address], [place], [place], [address], [place] tel:[phone] [facility] No Information 7 9 Optical [facility] [employer] . [address] [facility], [facility] [address], [place], [address], [place]. tel:[phone] Referring Provider: Ernie Perdomo, [address], [place], [address]. tel:[phone] magana Provider: Belen Webster, [address] [facility], [place], [address]. tel:[phone] 2943 [facility], [address], [place], [place], [address], [place] tel:[phone] [facility] No Information 0-200 9 Doisy Edward. [address] [facility] , [address], [place], [address], [place]. tel:[phone] Office/outpat ient Visit, [facility], [address], [place], [place], [address], tel:[phone] [facility] No Information 0 [phone] Frankel OD Akira. [address] [facility] , [address], [place], [place], [facility], [place]. tel:[phone] [facility], [address], [place], [place], [address], tel:[phone] [facility] No Information 0 2-200 9 Frankel OD Akira. [address] [facility] , [address], [place], [place], [facility], [place]. tel:[phone] [facility], [address], [place], [place], [address], tel:[phone] [facility] No Information 0 8-200 8 Scanlon Neeta. [address] [facility] , [address], [place], [place], [facility], . tel:[phone] Family History Family Member Type Diagnosis Age [...]
--- OUTSIDE RECORDS SUMMARY | 2024-11-03 02:13 | XMS_ITS | Clinical Summary ---
Author Organization 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
--- OUTSIDE RECORDS SUMMARY | 2024-11-03 02:14 | XMS_ITS | Clinical Summary ---
Author Organization [facility] Address [address] [place] [address] Care Team Providers Care Bumper And Painter Name Role Phone Axel Price MD Primary [...] every 6 hours as needed Active marlin rhv-wkn-X3-Zn- copy lathe operator-man-bor 250-40-125 mg-mg-unit tablet Take [...] by mouth 3 times daily Active omega 1-qoc-asm-fish oil (OMEGA-3) 350 mg-235 mg- 90 mg-597 [...] 23 Active blood-glucose meter,continuo us (Dexcom G6 Foundation Stage Teacher) misc Use as directed 1 each 03/12/20 23 Active blood-glucose meter,continuo us (Dexcom G7 Foundation Stage Teacher) miscIndication s:Type 2 diabetes mellitus with diabetic [...] Active pen needle, diabetic (Easy Comfort Pen [place]) 31 gauge x 5/16 needle Use twice daily with insulin pen 200 each 3 06/14/20 20 025 Discontinued(R eorder) FreeStyle Lite Strips strip Check glucose 3-4 daily 350 each 3 09/15/19 25 025 Discontinued(R eorder) pen needle, diabetic (Easy Comfort Pen [place]) 31 gauge x 5/16 needleIndicati ons:Type 2 diabetes mellitus with diabetic polyneuropathy , with long-term current use of insulin (HCC) Use twice daily with insulin pen 200 each 3 10/16/19 25 025 Discontinued Active Problems Problem Noted Date Diagnosed Date Chronic pain syndrome 06/03/2020 Overview (06/03/2020): Added automatically from request for surgery [id number] Subclinical hypothyroidism 07/08/2018 Assessment & Plan (07/08/2018 3:12 PM RAMP JOCKEY): Clinically euthyroid w/o treatment and last TSH normal 3.28 and may be age related elevation previously. -monitor with period TFT Mixed hyperlipidemia 07/08/2018 Assessment & Plan (07/08/2018 3:13 PM RAMP JOCKEY): LDL 57 excellent control on lipitor TG at goal 12/2017 on lovaza 4g Iron deficiency anemia 07/08/2018 Assessment & Plan (07/08/2018 3:13 PM RAMP JOCKEY): Pt has been evaluated by hematology and appropriate work up performed HTN (hypertension), benign 12/19/2017 Major depression 12/19/2017 Spinal stenosis 12/19/2017 Type 2 diabetes mellitus wit h neurologic complication, with long-term current use of insulin 02/15/2015 Assessment & Plan (07/08/2018 3:12 PM RAMP JOCKEY): Controlled A1c 7.4, but may be discrepant [...] Description 10/27/2024 1:40 PM CDT Office Visit [facility] Endocrinology Metabolism and Lipid [address] [facility] [address]th [place] [phone] Aleksander Willis MD Type 2 diabetes mellitus with diabetic polyneuropathy, with long-term current use of insulin (HCC) (Primary Dx) 10/20/2024 Telephone [facility] Endocrinology Metabolism and Lipid [address] [facility] 5th [place] [address] [place] [phone] Dago Garza RN 09/15/2024 Telephone [facility] Endocrinology Metabolism and Lipid [address] [facility] [address] 5th [place] [address] [place] [phone] Varsha Blanco RMA 09/07/2024 Telephone [facility] Endocrinology Metabolism and Lipid [address] [facility] [address] [place] [address] Dago Garza, RN 09/07/2024 Telephone [facility] Endocrinology Metabolism and Lipid [address] [facility] [address] [place] [address] Dago Garza, RN from Last [...] on file Legal Sex Female 2:40 AM RAMP JOCKEY Gender Identity Not on file Sexual Orientation Not on file Obstetrics History Last Filed Vital Signs Vital Sign Reading Time Taken Comments Blood Pressure 111/49 10/27/2024 1:25 PM CDT Pulse 62 10/27/2024 1:25 PM CDT Temperature 36.8 C (98.2 F) 10/27/2024 1:25 PM CDT Respiratory Rate 18 06/25/2020 7:55 AM RAMP JOCKEY Oxygen Saturation 94% 06/25/2020 7:55 AM RAMP JOCKEY Inhaled Oxygen Concentration - - Weight 77.1 [...] history exists Medical Devices Implanted Type Area Construction Site Manager Device Identifier Shelf Expiration Date Model / Serial / Lot Medtronic Neuro 8637-20 Synchromed Ii .78in [place] Filter Mesh Pouch Programmable - [id number] - [id number] Implanted:Qty: 1 on 06/24/2020 by Sabrina Whiting MD at [facility] [employer] 11/23/2021 8637 -20 / [id number] / Procedures Procedure Name Priority Date/Time Associated [...] 2:05 PM CDT) Triglycerides 160(H) <150 mg/dL [facility] Comment: Desirable: <150 mg/dL, fasting <175 mg/dL, non-fasting Persistently elevated triglycerides may enhance atherosclerotic cardiovascular disease. Total Cholesterol 123 <200 mg/dL [facility] Total HDL-C Direct 31(L) >50 mg/dL [facility] Comment: A low HDL-C may be inidcative of metabolic syndrome and enhance atherosclerotic cardiovascular disease risk. Non-HDL cholesterol 92 <220 mg/dL [facility] [place] LDL Chol 60 <190 mg/dL [facility] Comment: The inaccuracy of the [place] [...] PM CDT 03/12/2023 3:33 PM CDT Narrative [facility] - 03/12/2023 4:19 PM CDT Current interpretive data was last updated July 14, 2021. For adults ages 40-79, the ACC/AHA recommends discussing your 10-year atherosclerotic cardiovascular disease risk with your health care provider. [email or web address].org/ASCVDApp us Urbano Childers MD LAB BLOOD ORDERABLES Final Resu lt [facility] [...] Recently Relevant to Health Maintenance Insurance MEDICARE [employer] MEDICARE [facility] Address: [address] [address] [place] [address] FOR LIFE Advance Directives For more information, please contact: [phone] * Full Code (Latest Code Status on File) Date Activated Date Inactivated Comments 06/24/2020 4:31 PM 06/25/2020 3:40 PM Care Teams Bumper And Painter Relationship Specialty Start Date End Date Axel Price MD [address] [facility] [address] [place] [address] PCP - General 02/05/17
--- OUTSIDE RECORDS SUMMARY | 2024-11-03 02:14 | XMS_ITS ---
Author Organization [facility] Address [address] [place], [place] [address] Care Team Providers Care Office Machine Servicer Name Role Phone RENETTA CASON Unavailable [phone] Axel Price Unavailable Unavailable Allergies Allergen (clinical drug ingredient) [...] Location Date Provider Diagnosis [facility] [place] [address] [place], [place] [id number] 09/07/2024 RENETTA RIVERO Tinea unguium B35.1 ; Pain in right foot M79.671 ; Pain in left foot M79.672 ; Atherosclerosis of [place] arteries of extremities with intermittent claudication, bilateral [...] foot (ICD-10 - M79.672) 09/07/2024 Atherosclerosis of [place] arteries of extremities with intermittent claudication, bilateral [...] Name:RENETTA RIVERO, 02:20:00 PM, [address], [facility], [place], [place], [id number], Progress Notes * Matthew MUNGUIAB:[birth year] 50 (74 yo F)Acc No.[id number]:09/07/2024 Patient: Ce YAN Provider: Jenniffer Rivero DPM :1950 A ge:74 Y S ex:Female Date:09/07/2024 Address:[place] [id number] Subjective: * Chief Complaints: * Wicho arechiga [...] - M79.672 4 . A therosclerosis of [place] arteries of extremities with intermittent claudication, bilateral [...] SKIN LESIONS, 2 TO 4, Modifiers: Q8 07728 DEBRIDE NAIL, 6 OR MORE, Modifiers: 59 , Q8 * Follow Up: 1 0 - 12 weeks (Reason: At-Risk Foot care, sooner if problems develop.) * Billing Information: * Visit Code: * Procedure Codes: 57566 TRIM SKIN LESIONS, 2 TO 4. Modifiers: Q8 63126 DEBRIDE NAIL, 6 OR MORE. Modifiers: 59, Q8 * SE MAKER HEAD Sign off status: Completed true * Provider: Jenniffer Rivero DPM Date: 0 09/07/2024 Generated for Dave edmonds/Chapis/Dionitting on: 0 11/03/2024 02:14 AM CDT History and Physical Notes * HPI [...]
--- OUTSIDE RECORDS SUMMARY | 2024-11-03 02:14 | XMS_ITS | Clinical Summary ---
Author Organization [facility] Address [address] [place] [address] Care Team Providers Care Hog Feeder Name Role Phone Axel Price MD Primary Care Provider [phone] Allergies Active Allergy Reactions Criticality Noted Date [...] Rash Low 08/20/2007 Medications NARCAN 4 mg/actuation [place], Non-Aerosol SPRAY ONCE into nostril FOR opioid [...] 25 mg tablet Take by mouth daily msws. Active montelukast (SINGULAIR) 10 mg tablet Take [...] tablet losartan 25 mg tablet Active Insulin Martin, Disposable, (Sure Comfort Pen Needle) 31 gauge [...] Description 01/29/2025 11:00 AM CDT Office Visit [facility] Oncology and Hematology [facility] [address] [facility] [address] [place] [address] Jason Buckley MD [address] [facility] [address] [place] [address] Health Maintenance Due Date Last Done Comments DIABETES ANNUAL FOOT EXAM 1968 DIABETES MICROALBUMIN ANNUAL SCREEN 1968 LDL CHOLESTEROL ANNUAL 1968 DTAP/TDAP/TD VACCINES (1 - Tdap) 1969 PNEUMOCOCCAL VACCINE 50+ YEA RS (1 of 2 - PCV) 1969 FIT-DNA Q 3 years 1995 FIT/FOBT Q 1 year 1995 Flex Sig/CT Colonography Q 5 years 1995 ZOSTER VACCINE (1 of 2) 2000 RSV VACCINE (60+ or ) (1 - Risk 60-74 years 1-dose series) 2010 BREAST CANCER SCREENING 09/23/2020 09/23/2019, 09/23 DIABETES ANNUAL RETINAL EXAM 10/01/2023, 11/07/2020, 11/06/2018, [...] A AND B FOR LIFE Care Teams Hog Feeder Relationship Specialty Start Date End Date Axel Price MD [address] [facility] [address] [facility] [address] [place] [phone] PCP - General Family Practice 12/19/17
--- OUTSIDE RECORDS SUMMARY | 2024-11-03 02:14 | XMS_ITS | Referral Summary ---
Author Organization [facility] Address [address] [place] [address] Care Team Providers Care Research Nutritionist Name Role Phone Axel Price MD Primary Care Provider Encounters Date Type Department Care Team Description 10/27/2024 1:40 PM CDT Office Visit [facility] Endocrinology Metabolism and Lipid [address] [facility] [address] 5th [place] [address] [place] [address] Aleksander Willis MD Type 2 diabetes mellitus with diabetic polyneuropathy, with long-term current use of insulin (HCC) (Primary Dx) 10/20/2024 Telephone [facility] Endocrinology Metabolism and Lipid [address] [facility] Medicine 5th [place] [address] [place] [address] Dago Garza RN 09/15/2024 Telephone [facility] Endocrinology Metabolism and Lipid [address] [facility] [address] 5th [place] [address] [place] [address] Varsha Blanco RMA 09/07/2024 Telephone [facility] Endocrinology Metabolism and Lipid [address] [facility] [address] [place] [address] Dago Garza RN 09/07/2024 Telephone [facility] Endocrinology Metabolism and Lipid 1 [facility] [address] [place] [id number] Dago Garza RN from Last 3 Months [...] every 6 hours as needed Active marlin nci-hgu-R0-Zn- copy technician-man-bor 250-40-125 mg-mg-unit tablet Take by mouth. 06/20/20 [...] by mouth 3 times daily Active omega 4-vcv-xtr-fish oil (OMEGA-3) 350 mg-235 mg- 90 mg-597 [...] 23 Active blood-glucose meter,continuo us (Dexcom G6 Personal Protection Specialist) misc Use as directed 1 each 03/12/20 23 Active blood-glucose meter,continuo us (Dexcom G7 Personal Protection Specialist) miscIndication s:Type 2 diabetes mellitus with diabetic [...] Active pen needle, diabetic (Easy Comfort Pen [place]) 31 gauge x 5/16 needle Use twice daily with insulin pen 200 each 3 06/14/20 20 025 Discontinued(R eorder) FreeStyle Lite Strips strip Check glucose 3-4 daily 350 each 3 09/15/19 25 025 Discontinued(R eorder) pen needle, diabetic (Easy Comfort Pen [place]) 31 gauge x 5/16 needleIndicati ons:Type 2 diabetes mellitus with diabetic polyneuropathy , with long-term current use of insulin (HCC) Use twice daily with insulin pen 200 each 3 10/16/19 25 025 Discontinued Active Problems Problem Noted Date Diagnosed Date Chronic pain syndrome 06/03/2020 Overview (06/03/2020): Added automatically from request for surgery [id number] Subclinical hypothyroidism 07/08/2018 Assessment & Plan (07/08/2018 3:12 PM TELEPHONE ORDER SUPERVISOR): Clinically euthyroid w/o treatment and last TSH normal 3.28 and may be age related elevation previously. -monitor with period TFT Mixed hyperlipidemia 07/08/2018 Assessment & Plan (07/08/2018 3:13 PM TELEPHONE ORDER SUPERVISOR): LDL 57 excellent control on lipitor TG at goal 12/2017 on lovaza 4g Iron deficiency anemia 07/08/2018 Assessment & Plan (07/08/2018 3:13 PM TELEPHONE ORDER SUPERVISOR): Pt has been evaluated by hematology and appropriate work up performed HTN (hypertension), benign 12/19/2017 Major depression 12/19/2017 Spinal stenosis 12/19/2017 Type 2 diabetes mellitus wit h neurologic complication, with long-term current use of insulin 02/15/2015 Assessment & Plan (07/08/2018 3:12 PM TELEPHONE ORDER SUPERVISOR): Controlled A1c 7.4, but may be discrepant [...] on file Legal Sex Female 2:40 AM TELEPHONE ORDER SUPERVISOR Gender Identity Not on file Sexual Orientation Not on file Last Filed Vital Signs Vital Sign Reading Time Taken Comments Blood Pressure 111/49 10/27/2024 1:25 PM CDT Pulse 62 10/27/2024 1:25 PM CDT Temperature 36.8 C (98.2 F) 10/27/2024 1:25 PM CDT Respiratory Rate 18 06/25/2020 7:55 AM TELEPHONE ORDER SUPERVISOR Oxygen Saturation 94% 06/25/2020 7:55 AM TELEPHONE ORDER SUPERVISOR Inhaled Oxygen Concentration - - Weight 77.1 kg (170 lb) 10/27/2024 1:25 PM CDT Height 168.4 cm (5' 6.3 ) 10/27/2024 1:25 PM CDT Body Mass Index 27.19 10/27/2024 1:25 PM CDT Plan of Treatment Not on file Medical Devices Implanted Type Area Facilitator Device Identifier Shelf Expiration Date Model / Serial / Lot Medtronic Neuro 8637-20 Synchromed Ii .78in [place] Filter Mesh Pouch Programmable - [id number] - [id number] Implanted:Qty: 1 on 06/24/2020 by Sabrina Whiting MD at [facility] [employer] 11/23/2021 8637 -20 / [id number] / Procedures Procedure Name Priority Date/Time Associated [...] 2:05 PM CDT) Triglycerides 160(H) <150 mg/dL [facility] Comment: Desirable: <150 mg/dL, fasting <175 mg/dL, non-fasting Persistently elevated triglycerides may enhance atherosclerotic cardiovascular disease. Total Cholesterol 123 <200 mg/dL [facility] Total HDL-C Direct 31(L) >50 mg/dL [facility] Comment: A low HDL-C may be inidcative of metabolic syndrome and enhance atherosclerotic cardiovascular disease risk. Non-HDL cholesterol 92 <220 mg/dL [facility] [place] LDL Chol 60 <190 mg/dL [facility] Comment: The inaccuracy of the Fried[place] equation [...] PM CDT 03/12/2023 3:33 PM CDT Narrative [facility] CORE LAB - 03/12/2023 4:19 PM CDT Current interpretive data was last updated July 14, 2021. For adults ages 40-79, the ACC/AHA recommends discussing your 10-year atherosclerotic cardiovascular disease risk with your health care provider. [email or web address].org/ASCVDApp us Urbano Childers MD LAB BLOOD ORDERABLES Final Resu lt [facility] CORE LAB [facility] [...] to Health Maintenance Insurance MEDICARE FOR LIFE MEDICARE FOR LIFE Advance Directives For more information, please contact: [phone] * Full Code (Latest Code Status on File) Date Activated Date Inactivated Comments 06/24/2020 4:31 PM 06/25/2020 3:40 PM Care Teams Research Nutritionist Relationship Specialty Start Date End Date Axel Price MD [address] [facility] [address] [place] [address] PCP - General 02/05/17
--- OUTSIDE RECORDS SUMMARY | 2024-11-03 02:15 | XMS_ITS ---
Author Organization [id number] Address [address] [address] Care Team Providers Care Field Scout Name Role Phone Axel Price MD Primary Care Provider Krissy Mercado [phone] REASON FOR VISIT PT cancel appt as she is throwing up and not feeling well Social History Sex Assigned At : Social History Observation Description Sex Assigned At Female Encounters Encounter Location Date Provider Diagnosis [facility] [address] [facility] [address] [place] [address] 10/13/2024 Krissy Delgado Plan Of Treatment Next Appt Details Provider Name:Mel Delcid, 11/20/2024 10:00:00 AM, [address], [address], [address], Provider Name:Krissy groves, 01/20/2025 11:00:00 AM, [facility], [address], [address], Progress Notes * IRENE MUNGUIADOB:1949 (74 yo F)Acc No.[id number]:10/13/2024 Patient: Mateus IRENE JI Provider: Seda Delgado :1950 A ge:74 Y S ex:Female Date:10/13/2024 Address:[facility] [address] [place], [place] [id number] Pcp:Axel Price MD Subjective: * Chief Complaints: * 1 . PT cancel appt as she is throwing up and not feeling well. * Medical History: Objective: * Vitals: Assessment: Plan: * Treatment: * Billing Information: * Visit Code: * Procedure Codes: * Electronic signature of Cuco Delgado on 11/03/2024 at 02:14 AM CDT Sign off status: Pending * Provider: Seda Delgado Date: 0 10/13/2024 Generated for Dave Hernandez/Sharon on: 11/03/2024 02:14 AM CDT
--- OUTSIDE RECORDS SUMMARY | 2024-11-03 02:15 | XMS_ITS ---
Author Organization [facility] Address [address] [place], [place] [id number] Care Team Providers Care Speech Lang Path Therapist Name Role Phone RENETTA CASON Unavailable [phone] Aexl Price Unavailable Unavailable Allergies Allergen (clinical drug [...] Location Date Provider Diagnosis [facility] [place] [address] [place], [place] [id number] 05/25/2024 RENETTA RIVERO Tinea unguium B35.1 ; Pain in right foot M79.671 ; Pain in left foot M79.672 ; Atherosclerosis of [place] arteries of extremities with intermittent claudication, bilateral [...] foot (ICD-10 - M79.672) 05/25/2024 Atherosclerosis of [place] arteries of extremities with intermittent claudication, bilateral [...] Name:RENETTA RIVERO, 02:20:00 PM, [address], [facility], [place], [place], [id number], Progress Notes * Randal MUNGUIARayrayB:[birth year] (73 yo F)Acc No.[id number]:05/25/2024 Patient: Ce YAN Provider: Jenniffer Rivero DPM :1950 A ge:73 Y S ex:Female Date:05/25/2024 Address:[place] [id number] Subjective: * Chief Complaints: * 1 . [...] - M79.672 4 . A therosclerosis of [place] arteries of extremities with intermittent claudication, bilateral [...] LESIONS, 2 TO 4, Modifiers: Q8 , 14276 TRIM NAIL(S), Modifiers: 59 , Q8 * Follow Up: 1 0 - 12 weeks (Reason: At-Risk Foot care, sooner if problems develop.) * Billing Information: * Visit Code: * Procedure Codes: 28317 TRIM SKIN LESIONS, 2 TO 4. Modifiers: Q8 45585 TRIM NAIL(S). Modifiers: 59, Q8 * Sign off status: Completed true * Provider: Jenniffer Rivero DPM Date: Generated for Dave edmonds/Chapis/Sharon on: 0 11/03/2024 02:14 AM CDT History [...]
--- OUTSIDE RECORDS SUMMARY | 2024-11-03 02:15 | XMS_ITS | Encounter Summary ---
Author Organization [facility] Address [address] [place] [address] Phone Care Team Providers Care Ed Physicians Name Role Phone Axel Price MD Primary Care Provider Encounter Details Date Type Department Care Team (Late st Contact Info) Description 09/07/2024 Telephone [facility] Endocrinology Metabolism and Lipid 1 [facility] [address] [place] [address] Dago Garza RN Social History Tobacco Use Types Packs/Day Years Used Date Smoking Tobacco: Former Cigarettes Q uit: 2005 Alcohol Use Standard Drinks/Week Comments Not Currently 0 (1 standard drink = 0.6 oz pur e alcohol) Comments Unknown Sex and Gender Information Value Date Recorded Sex Assigned at Not on file Legal Sex Female 2:40 AM AGRONOMY INSTRUCTOR Gender Identity Not on file Sexual Orientation Not on file documented as of this encounter Plan of Treatment Not on file documented as of this encounter Visit Diagnoses Not on filedocumented in this encounter Care Teams Ed Physicians Relationship Specialty Start Date End Date Axel Price MD [address] [facility] [address] [place] [address] PCP - General 02/05/17 documented as of this encounter
[2024-11-03 13:05] LABS: Glucose Point of Care 95 mg/dl (65-105)
[2024-11-03 13:09] VITALS: BP 128/42; PULSE 62; RESP 16; TEMP 37.2; O2SAT 96
--- NOTE | 2024-11-03 13:28 | WPDHPUPDATE1 ---
History and Physical Update Update Date/Time: 11/03/24 13:28 I reviewed the abdominal plain films with Dr. Cruz, radiologist. There are 2 potential needles seen only on the lateral view as noted in the reading. No needles can be seen on AP views, only intraabdominal clips. The needles seen on lateral view are very faint. Dr. Cruz feels I would be unable to see any needles with fluoroscopy, the planned approach. Patient's surgery is delayed due to earlier surgeries taking longer than scheduled. Will send patient to U/S preoperatively to see if needles can be seen and marked preoperatively. Patient feels there is only one needle and was surprised x-ray saw a second needle. Also patient points to area of puncture more in right hypogastrium than it appears the needles are located on plain films. Plain is to remove any and all needles that are identified on U/S. If no needles are seen on U/S, I will still explore the area she reports the needle broke off to see if I can locate it. Patient understands, I may not be able to locate or remove any needles today. There are no signs of skin infection on abdominal wall so it may be we will just leave the foreign body needle(s) in place until a complication such as infection or erosion through the skin occurs. History and Physical has been reviewed, including an updated exam of the patient. There are NO changes in the patient's condition. Risks, benefits, and alternatives have been discussed and questions answered. Patient agrees to proceed with procedure as discussed above.
[2024-11-03] MEDS: DEXTROSE 50% 25 GM/50 ML SYRINGE IV PUSH (15:40)
--- NOTE | 2024-11-03 15:46 | P.PNAN_ITS ---
Anes - Initial Pre Proc Eval Procedure: Operation Date: 11/03/24 14:30 Proposed Procedures p Removal Foreign Body Abdominal Wall Under Fluoroscopy - Mayo Ozuna MD Date/Time: 11/03/24 15:46 Surgeon: Mayo Ozuna MD Pre Op Diagnosis: FB abdominal wall Patient Data Age: 74 Gender: F Height: 1.68 m Weight: 76.8 kg Last Vital Signs Temp 37.2 C 11/03/24 13:09 Pulse 62 11/03/24 13:09 Resp 16 11/03/24 13:09 BP 128/42 L 11/03/24 13:09 Pulse Ox 96 11/03/24 13:09 O2 Del Method Room Air 11/03/24 13:09 Allergies Allergy/AdvReac Type Severity Reaction Status Date / Time lisinopril Allergy Severe TONGUE Verified 10/28/24 08:47 Swelling oxybutynin Allergy Severe PROBLEMS Verified 10/28/24 08:47 BREATHING fexofenadine Allergy Mild UPPER RESP Verified 10/28/24 08:47 INFECTION paroxetine Allergy Unknown NIGHT Verified 10/28/24 08:47 SWEATS bupropion AdvReac Unknown Nervousness Verified 10/28/24 08:47 tizanidine AdvReac Unknown blurred Verified 10/28/24 08:47 vision Home Medications ?Medication ?Instructions ?Recorded ?Confirmed ?Type ferrous sulfate 325 mg (65 mg 325 mg PO BID 06/22/19 10/28/24 History iron) tablet ascorbic acid (vitamin C) 1,000 mg 1 g PO DAILY 08/28/22 10/28/24 History capsule calcium carbonate-vitamin D3 600 1 tablet PO DAILY 08/28/22 10/28/24 History mg-125 unit tablet latanoprost 0.005 % eye drops 1 drp EACH EYE QAM 08/28/22 10/28/24 History buspirone 5 mg tablet 5 mg PO TID PRN Anxiety #90 tabs 04/05/23 11/03/24 Rx insulin glargine 100 unit/mL (3 35 unit subcut BID 04/05/23 10/28/24 History mL) subcutaneous pen (Lantus Solostar U-100 Insulin) aspirin 81 mg tablet,delayed 81 mg PO BID #180 tabs 06/11/23 11/03/24 Rx release fluoxetine 40 mg capsule 40 mg PO DAILY #90 caps 06/11/23 11/03/24 Rx mecobalamin (vitamin B12) 1,000 1,000 mcg PO DAILY #90 tabs 06/11/23 10/28/24 Rx mcg chewable tablet prochlorperazine maleate 5 mg 5 mg PO Q8H PRN nausea and 09/24/23 10/28/24 Rx tablet (Compazine) vomiting #20 tabs silver 200 mcg/gram topical gel 1 applic topical DAILY #60 grams 11/14/23 10/28/24 Rx (Silver-Sept) valsartan 40 mg tablet (Diovan) 40 mg PO BID #180 tabs 01/14/24 10/28/24 Rx empagliflozin 10 mg tablet 10 mg PO DAILY #90 tabs 03/16/24 10/28/24 Rx (Jardiance) hydrochlorothiazide 25 mg tablet 25 mg PO DAILY #90 tabs 03/16/24 10/28/24 Rx loratadine 10 mg tablet 10 mg PO DAILY #90 tabs 04/20/24 10/28/24 Rx atorvastatin 20 mg tablet 20 mg PO HS #90 tabs 09/14/24 10/28/24 Rx cyclobenzaprine 5 mg tablet 5 mg PO QHS PRN muscle spasm #90 09/14/24 10/28/24 Rx tabs docusate sodium 100 mg tablet 100 mg PO BID PRN Constipation #60 09/14/24 10/28/24 Rx tabs metoprolol succinate 50 mg See Rx Instructions .Route 09/14/24 11/03/24 Rx tablet,extended release 24 hr .COMPLEX #90 tabs mirabegron 50 mg tablet,extended 50 mg PO DAILY #90 tabs 09/14/24 10/28/24 Rx release 24 hr (Myrbetriq) omega-3 acid ethyl esters 1 gram 1 cap PO BID #180 caps 09/14/24 10/28/24 Rx capsule (Lovaza) pantoprazole 40 mg tablet,delayed 40 mg PO QAM #90 tabs 09/14/24 10/28/24 Rx release (Protonix) cephalexin 500 mg tablet 500 mg PO Q8H #21 tabs 10/14/24 10/28/24 Rx biotin 5 mg capsule 5 mg PO DAILY 10/28/24 10/28/24 History Laboratory Tests 11/03/24 13:02 POC Capillary Glucose 95 mg/dl (65-105) Patient hx anesthesia problems: none Family hx anesthesia problems: none Results Review: All pre-operative results and documents have been reviewed as part of the pre- operative evaluation. [facility] Past Medical History Medical History Osteopenia Chronic low back pain Renal cell carcinoma Status post partial bilateral nephrectomy. Nonalcoholic fatty liver disease Obstructive sleep apnea Intolerant to CPAP. Insulin dependent type 2 diabetes mellitus Cerebrovascular accident Presenting with expressive aphasia which has essentially resolved. Chronic kidney disease, stage 3 Osteomyelitis of great toe of left foot Anxiety Vitamin B12 deficiency Chronic venous stasis dermatitis of both lower extremities Major depressive disorder, single episode, unspecified Right femoral fracture ORIF Kidney malignant neoplasm Diverticulosis Dyslipidemia Anemia Hypertension Surgical History Surgical History History of tonsillectomy History of total abdominal hysterectomy Status post insertion of spinal cord stimulator With pain pump for chronic low back pain. History of bilateral salpingo-oophorectomy (12/2008) History of partial nephrectomy (2007) Bilateral partial nephrectomy for renal cell carcinoma done at [place]. History of elbow surgery Cubital tunnel release. History of cholecystectomy History of open reduction and internal fixation (ORIF) procedure Right hip fracture. History of arthroplasty of right shoulder History of cataract extraction History of carpal tunnel release History of laparotomy (12/2008) Diagnostic laparotomy with extensive adhesiolysis and bilateral salpingo-oophorectomy History of total right hip arthroplasty Family History Family History Father Family history of heart disease in male family member before age 55 Family history of coronary artery disease Cerebrovascular accident Sibling Family history of coronary artery disease Mother Family history of obesity Grandparent Diabetes mellitus Grandparent Family history of glaucoma Other Depression Family history of cardiovascular disease Hypertension Social History Social History Social History: . Retired. Daughter and son live with her in [place]. Smokes 1 pack of the day for 44 quit in 2004. Surrogate decision maker: Children or sister. CODE STATUS: Full code. Smoking packs per day: 1 Smoking cigarettes per day: 20.0 Years smoked: 10 Smoking pack-years: 10.00 Smoking status: Former smoker Tobacco type: cigarettes Second hand tobacco smoke exposure: No Smoking end date: 08/12/04 Additional smoking assessment comments: QUIT 2004 Alcohol intake: never Substance use: never Substance use type: does not use Do You Feel Safe in your Home?: Yes Lack of Transportation: No Lack of Food: Never True Current Housing: I Have Housing Concerned About Future Housing: No Difficulty Paying Gas/Electric Bills: No Difficulty Paying for Meds: No Currently Unemployed: No Education: High School Diploma/GED Difficulty w/ Childcare or Family Care: No Living arrangements: with family Additional living arrangements comments: [place] LIVES WITH PT Occupation/Education: retired Spiritual care concerns: No Anes - Eval Final PreProcedure Day of Procedure 11/03/24 15:46 Patient weight: overweight Heart: regular rate and rhythm Lungs: decreased breath sounds Airway: Mallampati scale class II Neurological: alert and oriented Last oral intake: >/= 8 hours ASA classification: IV Emergent: no Anesthetic plan: proceed Anesthesia type and monitoring: general GIVS Results Review: All pre-operative results and documents have been reviewed as part of the pre- operative evaluation. Informed Consent: The patient's anesthetic plan and its attendant risks and benefits were discussed with the patient/family/POA. Questions were solicited and answers provided to the satisfaction of the patient/family/POA.
[2024-11-03 16:04] LABS: Glucose Point of Care 129 mg/dl (65-105)
[2024-11-03 16:04] LABS: Glucose Point of Care 67 mg/dl (65-105)
--- NOTE | 2024-11-03 16:43 | WPDANESEPPF ---
Anes - Initial Pre Proc Eval Procedure: Operation Date: 11/03/24 14:30 Proposed Procedures p Removal Foreign Body Abdominal Wall Under Fluoroscopy - Mayo Ozuna MD Date/Time: 11/03/24 16:43 Surgeon: Mayo Ozuna MD Pre Op Diagnosis: FB abdominal wall Patient Data Age: 74 Gender: F Height: 1.68 m Weight: 76.8 kg Last Vital Signs Temp 37.2 C 11/03/24 13:09 Pulse 62 11/03/24 13:09 Resp 16 11/03/24 13:09 BP 128/42 L 11/03/24 13:09 Pulse Ox 96 11/03/24 13:09 O2 Del Method Room Air 11/03/24 13:09 Allergies Allergy/AdvReac Type Severity Reaction Status Date / Time lisinopril Allergy Severe TONGUE Verified 10/28/24 08:47 Swelling oxybutynin Allergy Severe PROBLEMS Verified 10/28/24 08:47 BREATHING fexofenadine Allergy Mild UPPER RESP Verified 10/28/24 08:47 INFECTION paroxetine Allergy Unknown NIGHT Verified 10/28/24 08:47 SWEATS bupropion AdvReac Unknown Nervousness Verified 10/28/24 08:47 tizanidine AdvReac Unknown blurred Verified 10/28/24 08:47 vision Home Medications ?Medication ?Instructions ?Recorded ?Confirmed ?Type ferrous sulfate 325 mg (65 mg 325 mg PO BID 06/22/19 10/28/24 History iron) tablet ascorbic acid (vitamin C) 1,000 mg 1 g PO DAILY 08/28/22 10/28/24 History capsule calcium carbonate-vitamin D3 600 1 tablet PO DAILY 08/28/22 10/28/24 History mg-125 unit tablet latanoprost 0.005 % eye drops 1 drp EACH EYE QAM 08/28/22 10/28/24 History buspirone 5 mg tablet 5 mg PO TID PRN Anxiety #90 tabs 04/05/23 11/03/24 Rx insulin glargine 100 unit/mL (3 35 unit subcut BID 04/05/23 10/28/24 History mL) subcutaneous pen (Lantus Solostar U-100 Insulin) aspirin 81 mg tablet,delayed 81 mg PO BID #180 tabs 06/11/23 11/03/24 Rx release fluoxetine 40 mg capsule 40 mg PO DAILY #90 caps 06/11/23 11/03/24 Rx mecobalamin (vitamin B12) 1,000 1,000 mcg PO DAILY #90 tabs 06/11/23 10/28/24 Rx mcg chewable tablet prochlorperazine maleate 5 mg 5 mg PO Q8H PRN nausea and 09/24/23 10/28/24 Rx tablet (Compazine) vomiting #20 tabs silver 200 mcg/gram topical gel 1 applic topical DAILY #60 grams 11/14/23 10/28/24 Rx (Silver-Sept) valsartan 40 mg tablet (Diovan) 40 mg PO BID #180 tabs 01/14/24 10/28/24 Rx empagliflozin 10 mg tablet 10 mg PO DAILY #90 tabs 03/16/24 10/28/24 Rx (Jardiance) hydrochlorothiazide 25 mg tablet 25 mg PO DAILY #90 tabs 03/16/24 10/28/24 Rx loratadine 10 mg tablet 10 mg PO DAILY #90 tabs 04/20/24 10/28/24 Rx atorvastatin 20 mg tablet 20 mg PO HS #90 tabs 09/14/24 10/28/24 Rx cyclobenzaprine 5 mg tablet 5 mg PO QHS PRN muscle spasm #90 09/14/24 10/28/24 Rx tabs docusate sodium 100 mg tablet 100 mg PO BID PRN Constipation #60 09/14/24 10/28/24 Rx tabs metoprolol succinate 50 mg See Rx Instructions .Route 09/14/24 11/03/24 Rx tablet,extended release 24 hr .COMPLEX #90 tabs mirabegron 50 mg tablet,extended 50 mg PO DAILY #90 tabs 09/14/24 10/28/24 Rx release 24 hr (Myrbetriq) omega-3 acid ethyl esters 1 gram 1 cap PO BID #180 caps 09/14/24 10/28/24 Rx capsule (Lovaza) pantoprazole 40 mg tablet,delayed 40 mg PO QAM #90 tabs 09/14/24 10/28/24 Rx release (Protonix) cephalexin 500 mg tablet 500 mg PO Q8H #21 tabs 10/14/24 10/28/24 Rx biotin 5 mg capsule 5 mg PO DAILY 10/28/24 10/28/24 History Laboratory Tests 03/11/03/24 11/03/24 13:02 15:27 15:57 POC Capillary Glucose 95 mg/dl 67 mg/dl 129 H mg/dl (65-105) (65-105) (65-105) Patient hx anesthesia problems: none Family hx anesthesia problems: none Results Review: All pre-operative results and documents have been reviewed as part of the pre-operative evaluation. [facility] Past Medical History Medical History Osteopenia Chronic low back pain Renal cell carcinoma Status post partial bilateral nephrectomy. Nonalcoholic fatty liver disease Obstructive sleep apnea Intolerant to CPAP. Insulin dependent type 2 diabetes mellitus Cerebrovascular accident Presenting with expressive aphasia which has essentially resolved. Chronic kidney disease, stage 3 Osteomyelitis of great toe of left foot Anxiety Vitamin B12 deficiency Chronic venous stasis dermatitis of both lower extremities Major depressive disorder, single episode, unspecified Right femoral fracture ORIF Kidney malignant neoplasm Diverticulosis Dyslipidemia Anemia Hypertension Surgical History Surgical History History of tonsillectomy History of total abdominal hysterectomy Status post insertion of spinal cord stimulator With pain pump for chronic low back pain. History of bilateral salpingo-oophorectomy (12/2008) History of partial nephrectomy (2007) Bilateral partial nephrectomy for renal cell carcinoma done at [place]. History of elbow surgery Cubital tunnel release. History of cholecystectomy History of open reduction and internal fixation (ORIF) procedure Right hip fracture. History of arthroplasty of right shoulder History of cataract extraction History of carpal tunnel release History of laparotomy (12/2008) Diagnostic laparotomy with extensive adhesiolysis and bilateral salpingo-oophorectomy History of total right hip arthroplasty Family History Family History Father Family history of heart disease in male family member before age 55 Family history of coronary artery disease Cerebrovascular accident Sibling Family history of coronary artery disease Mother Family history of obesity Grandparent Diabetes mellitus Grandparent Family history of glaucoma Other Depression Family history of cardiovascular disease Hypertension Social History Social History Social History: . Retired. Daughter and son live with her in [place]. Smokes 1 pack of the day for 44 quit in 2004. Surrogate decision maker: Children or sister. CODE STATUS: Full code. Smoking packs per day: 1 Smoking cigarettes per day: 20.0 Years smoked: 10 Smoking pack-years: 10.00 Smoking status: Former smoker Tobacco type: cigarettes Second hand tobacco smoke exposure: No Smoking end date: 08/12/04 Additional smoking assessment comments: QUIT 2004 Alcohol intake: never Substance use: never Substance use type: does not use Do You Feel Safe in your Home?: Yes Lack of Transportation: No Lack of Food: Never True Current Housing: I Have Housing Concerned About Future Housing: No Difficulty Paying Gas/Electric Bills: No Difficulty Paying for Meds: No Currently Unemployed: No Education: High School Diploma/GED Difficulty w/ Childcare or Family Care: No Living arrangements: with family Additional living arrangements comments: [facility] WITH [facility] Occupation/Education: retired Spiritual care concerns: No Anes - Eval Final PreProcedure Day of Procedure 11/03/24 16:43 Patient weight: overweight Heart: regular rate and rhythm Lungs: decreased breath sounds Airway: Mallampati scale class II Neurological: alert and oriented Last oral intake: >/= 8 hours ASA classification: III Emergent: no Anesthetic plan: proceed Anesthesia type and monitoring: general GIVS and standard monitoring Results Review: All pre-operative results and documents have been reviewed as part of the pre-operative evaluation. Informed Consent: The patient's anesthetic plan and its attendant risks and benefits were discussed with the patient/family/POA. Questions were solicited and answers provided to the satisfaction of the patient/family/POA.
[2024-11-03] MEDS: BUPIVACAINE/EPINEPHRINE 0.5% 30 ML VIAL 10 ML INFILTRATE (16:47)
[2024-11-03] MEDS: ceFAZolin 2 GM/D5W 50 ML 2 GM/50 ML BAG IVPB (16:47)
[2024-11-03 17:23] VITALS: BP 138/65; PULSE 62; RESP 16; O2SAT 99
--- NOTE | 2024-11-03 17:27 | W.PM.PROC2 ---
Procedure Note - Detailed Date of Procedure 11/03/24 Pre-op Diagnosis FB abdominal wall Post-op Diagnosis Same Procedure Performed Exploration abdominal skin and subcutaneous for foreign body Surgeon Mayo Ozuna MD Chemical Test Engineer Xu MAY Anesthesia MAC and Local Indications Patient was giving herself insulin in the right hypogastric area. She noted that the into the needle broke off. She was aware of the puncture sites in this area. When I saw her in the office there were 2 small superficial linear eschars in this area of the no palpable needle. She had had plain films which were negative on an AP view but did show 2 small foreign bodies on the lateral view. These appeared to be above and below the umbilicus. Discussion with the radiologist gave the impression that fluoroscopy would not be useful in retrieving this. The patient then went to ultrasound preoperatively. Some edema next to a right subcostal scar and just right of the 2 puncture courtney was noted but no needle was found. She is taken to surgery now for exploration in the possibility that the needle went in perpendicularly and was very short, therefore not detectable by imaging. Findings The area between the small puncture sites and the edematous tissue was completely explored. No foreign body was noted. Description of Procedure I saw the patient in ultrasound and looked at the ultrasound with the tach. There was some areas of edematous tissue as described above but no sign of a needle fragment. We marked on the skin the area of the edematous tissue. This was about 2 cm right of the puncture courtney described by the patient. Patient was then taken back to the preoperative area. She then went to the operating room. The area that I had marked was prepped and draped. Palpation was again carried out but no needle or other foreign body was palpable. Local anesthetic was infiltrated along a proposed transverse scar from the edematous tissue mk to the puncture site. Subcutaneous was infiltrated as well. Incision was made and the skin was carefully inspected. I then looked for any sign of inflammatory change in the subcutaneous. None was seen. Dissection was then continued about 2 cm deep. No needle fragment or other foreign body was palpable or otherwise identified. I excised about a cm of subcutaneous just under the skin of the incision. I carefully inspected this subcutaneous tissue, palpating it for foreign body as well. No abnormality was noted. I then ensured that hemostasis was good with the cautery. The deeper subcutaneous was closed with interrupted 4-0 Vicryl suture. Skin was loosely approximated with subcuticular 4-0 Vicryl suture. A 4-0 Monocryl running subcuticular skin suture was placed. The wound was dressed with Exofin surgical adhesive. Patient was awakened and taken to outpatient surgery in good condition. Sponge and needle counts were correct x2. Estimated Blood Loss -1 Drains No Packing No Pathology None sent Complications None Condition Stable Disposition Same day [facility] Billing Surgery - Charge Forward: Surgery Billing (Exploration subcutaneous abdominal wall for foreign body)
[2024-11-03 17:32] LABS: Glucose Point of Care 75 mg/dl (65-105)
[2024-11-03 17:53] VITALS: BP 143/59; PULSE 56; RESP 16
[2024-11-03 18:16] VITALS: BP 156/70; PULSE 62; RESP 16
== END 2024-11-03 18:23 | disposition home or self-care (01) ==
PROVIDERS: PCP Family Medicine; Visit Provider Surgery
PROC: (CPT 20102; principal; 2024-11-03 14:30)
DX: M79.89 Other specified soft tissue disorders (principal); E78.5 Hyperlipidemia, unspecified; D64.9 Anemia, unspecified; E11.22 Type 2 diabetes mellitus with diabetic chronic kidney disease; I12.9 Hypertensive chronic kidney disease with stage 1 through stage 4 chronic kidney disease, or unspecified chronic kidney disease; N18.30 Chronic kidney disease, stage 3 unspecified; F41.9 Anxiety disorder, unspecified; E53.8 Deficiency of other specified B group vitamins; G47.33 Obstructive sleep apnea (adult) (pediatric); F32.9 Major depressive disorder, single episode, unspecified; G89.29 Other chronic pain; M54.50 Low back pain, unspecified; I87.2 Venous insufficiency (chronic) (peripheral); M85.88 Other specified disorders of bone density and structure, other site; K76.0 Fatty (change of) liver, not elsewhere classified; Z79.82 Long term (current) use of aspirin; Z79.84 Long term (current) use of oral hypoglycemic drugs; Z79.4 Long term (current) use of insulin; Z98.890 Other specified postprocedural states; Z90.5 Acquired absence of kidney; Z96.82 Presence of neurostimulator; Z90.49 Acquired absence of other specified parts of digestive tract; Z87.891 Personal history of nicotine dependence; Z86.79 Personal history of other diseases of the circulatory system; Z85.528 Personal history of other malignant neoplasm of kidney; Z87.19 Personal history of other diseases of the digestive system; Z82.49 Family history of ischemic heart disease and other diseases of the circulatory system
CPT/HCPCS: 20102; 76705; 82948; J0690; J2003; J2250; J2704; J3010

== ENCOUNTER 2025-01-27 10:10 | Outpatient (CLI) | payer MEDICARE, SELFPAY ==
[2025-01-27 10:31] LABS: Mean Corpuscular HGB Conc 32.5 g/dL (32-36); Mean Corpuscular Hemoglobin 27.6 pg (27.0-31.0); Mean Corpuscular Volume 84.9 fL (78.0-102.0); Mean Platelet Volume 11.1 fl (9.2-11.8); Platelet Count Result 189 K/mm3 (150-420); Red Blood Count 4.71 M/mm3 (4.20-5.40); Red Cell Distribution Width 13.1 % (11.6-14.4); White Blood Count 8.2 K/mm3 (4.8-10.8)
[2025-01-27 10:50] LABS: Anion Gap 6 mmol/L (4-12); Blood Urea Nitrogen 22 mg/dL (7-17); Calcium 8.9 mg/dL (8.4-10.2); Carbon Dioxide 32 mmol/L (22-30); Chloride 100 mmol/L (98-107); Estimated Glomerular Filt Rate 47; Glucose 167 mg/dL (65-110); Iron 74 ug/dL (37-170); Osmolality Calculated 293 mOsm/kg (285-295); Potassium 4.4 mmol/L (3.4-5.0); Sodium 138 mmol/L (137-145)
[2025-01-27 10:59] LABS: Percent Iron Saturation 32 % (20-50)
--- OUTSIDE RECORDS SUMMARY | 2025-01-27 11:32 | XMS_ITS | Continuity of Care Document ---
Author Name [facility] Organization [facility] Care Team Providers Care Assistant Therapy Aide Name Role Phone [facility] Unavailable Unavailable Problems Combined list of problems from Department of Defense and Veterans Affairs facilities. It does not include entries that were removed or entered in error. Problem Status Onset Date Problem Type Date of Resolution Comments Source visit for: administrative purpose Inactive Condition DoD MIGRAINE HEADACHE Active Condition DoD sudden redness of the skin (flushing) Inactive Condition DoD ESSENTIAL HYPERTENSION ACCELERATED Active Condition DoD FATTY LIVER Active Condition DoD Administrative Evaluation Services Inactive Condition DoD visit for: issue repeat prescription for medication Inactive Condition DoD DIABETES MELLITUS TYPE 2 Active Condition DoD DEPRESSION Active Condition DoD HYPERLIPIDEMIA Active Condition DoD ESSENTIAL HYPERTENSION BENIGN Active Condition DoD SCIATIC RADICULOPATHY Active Condition DoD OSTEOARTHRITIS LOCALIZED PRIMARY - SHOULDER Active Condition DoD CHRONIC PAIN SYNDROME Active Condition [facility] Laboratory Studies Inactive Condition Do D visit for: screening exam ischemic heart disease Inactive Condition DoD visit for: issue repeat prescription Inactive Condition [facility] CLASSIC MIGRAINE (WITH AURA) Active Condition [facility] HYPERTENSION (SYSTEMIC) Active Condition DoD MYALGIA AND MYOSITIS Active Condition DoD ESSENTIAL HYPERTENSION Active Condition DoD HEADACHE SYNDROMES Active Condition DoD Hysterectomy Active Condition DoD OSTEOPENIA Active Condition DoD Total Abdominal Hysterectomy Active Condition DoD Vaccines Prophylactic Need Against Influenza Active Condition DoD DIABETES MELLITUS POORLY CONTROLLED Active Condition DoD NORMAL ROUTINE HISTORY AND PHYSICAL Inactive Condition [facility] DIABETIC RETINOPATHY Active Condition DoD a fall Active Condition DoD CLOSED FRACTURE OF CARPAL BONE(S) - LUNATE BONE Active Condition [facility] Occupational Therapy Inactive Condition Hold OT until patient is evaluated by hand surgeon. 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 FOR THE LAST WEEK, FEWER HYPOGLYCEMIC EPISODES. WILL RESTART ORAL MEDS, D/C NOVOLOG SINCE PATIENT'S ACUTE ILLNESS HAS RESOLVED. [facility] smoking cigarettes Active Condition E NCOURAGED [...] Pharmac y atorvastati n 20 mg tablet = 1 tab(s), Oral, every day at bedtime, # 90 EA, 2 total refill(s ), Hard Stop Oral (given by mouth) Discont inued 09/15/2024 4 2024 90.0 Ambulat ory Pharmac y atorvastati n 20 mg tablet 20 mg, See Instruct ions, 0, # 90 EA, 2 total refill(s ), Hard Stop Complet ed 02/27/2024 4 2023 90.0 Ambulat ory Pharmac y atorvastati n 20 mg tablet = 1 tab(s), Oral, # 90 EA, 2 total refill(s [...] HCL (buspirone HCl), 10 MG, TABLET, ORAL, [facility], 500 ea. BOTTLE Active [id number] 4 2023 270 Pharmac y Data Transac tion Service Facilit y cyclobenzap rine (U/D) 5 MG ORAL TAB Be careful if taking OTCs.May impair driving. 11/13/2024 [id number] 4 2023 90 [employer] [facility] [place] TURNER [place] [place] cyclobenzap rine 5 mg tablet See Instruct [...] Pharmac y cyclobenzap rine 5 mg tablet = 1 tab(s), Oral, Daily, PRN muscle spasm., # 90 EA, 0 total refill(s ), Soft Stop Oral (given by mouth) Ordered 5 2024 90.0 Ambulat ory Pharmac y cyclobenzap rine 5 mg tablet See Instruct ions, Oral, # 90 EA, 0 total refill(s ), Hard Stop Oral (given by mouth) Complet ed 12/14/2024 5 2024 90.0 Ambulat ory Pharmac [...] Pharmac y docusate sodium 100 mg capsule = 1 cap(s), Oral, BID, # 60 EA, 0 total refill(s ), Hard Stop Oral (given by mouth) Complet ed 10/15/2024 5 2024 60.0 Ambulat ory Pharmac y DOXYCYCLINE HYCLATE (doxycyclin e hyclate), 100 MG, TABLET, ORAL, [facility], 500 ea. BOTTLE Active [id number] 4 2023 20 Pharmac y Data Transac tion Service Facilit y EMPAGLIFLOZ IN 10 MG ORAL TAB Check with your doctor before becoming . 11/13/2024 [id number] 4 2023 90 [employer] [facility] Antonio TURNER [place] [place] empaglifloz in 10 mg tablet See Instruct ions, 0, # 90 EA, 3 total refill(s ), Hard Stop Ordered 04/22/2025 5 2024 90.0 Ambulat ory Pharmac y FLUoxetine 40 [...] Stop Oral (given by mouth) Complet ed 01/13/2025 4 2024 30.0 Ambulat ory Pharmac y Hydrochloro thiazide (Oretic) Tablet 25 mg Oral Take orange juice or banana.T austyn with food/mil k.Avoid exposure to sun.Take or use exactly as directed . 01/13/2025 [id number] 4 2023 90 [employer] [facility] Antonio TURNER [place] [place] hydroCHLORO thiazide 25 mg tablet See Instruct [...] Stop Oral (given by mouth) Discont inued 12/14/2024 5 2024 90.0 Ambulat ory Pharmac y hydroCHLORO thiazide 25 mg tablet See Instruct ions, Oral, # 90 EA, 2 total refill(s ), Soft Stop Oral (given by mouth) Ordered 5 2024 90.0 Ambulat ory Pharmac y [...] refill(s ), Hard Stop, SIS Ordered 04/22/2025 5 2024 105.0 Ambulat ory Pharmac y Lantus SoloStar glargine 100 units/mL [3mL] See dose instruct ions in comments , # 135 mL, 3 total refill(s ), Acute Complet ed 11/06/2023 4 2023 135.0 Ambulat ory Pharmac y LATANOPROST (LATANOPROS T), 0.005%, DROPS, OPHTHALMIC, [facility], 2.5 ml DROP BTL Cancele d [id number] : 2023 0 Pharmac y Data Transac tion Service Facilit y LATANOPROST (LATANOPROS T), 0.005%, DROPS, OPHTHALMIC, PIMENTEL PHARMACE, 2.5 ml DROP BTL Cancele d [id number] : 2023 0 Pharmac y Data Transac tion Service Facilit y LATANOPROST (LATANOPROS T), 0.005%, DROPS, OPHTHALMIC, PIMENTEL PHARMACE, 2.5 ml DROP BTL Active [id number] 4 2023 2.5 Pharmac y Data Transac [...] loratadine 10 mg tablet See Instruct ions, Oral, # 90 EA, 2 total refill(s ), Soft Stop Oral (given by mouth) Ordered 5 2024 90.0 Ambulat ory Pharmac y loratadine 10 mg tablet = 1 tab(s), Oral, Daily, # 90 EA, 2 total refill(s ), Hard Stop Oral (given by mouth) Discont inued 12/14/2024 5 2024 90.0 Ambulat ory Pharmac [...] succinate), 50 MG, TAB ER 24H, ORAL, [employer] 1000 ea. BOTTLE Active [id number] 4 2023 90 Pharmac y Data Transac tion Service Facilit y metoprolol succinate ER 25 mg/24 hour tablet 25 mg, TAKE ONE TABLET DAILY, # 90 EA, 3 total refill(s ), Acute Complet ed 12/23/20232023 90.0 Ambulat ory Pharmac y metoprolol succinate ER 50 mg/24 hour tablet = 1 tab(s), Oral, Daily, # 90 EA, 2 total refill(s ), Hard Stop Oral (given by mouth) Ordered 04/20/2025 4 2023 90.0 Ambulat ory Pharmac y MIRABEGRON 50 MG ORAL TB24 Take with plenty of water.Ob tain advice for OTCs.Gabbi hewitt whole.Ch doris with your doctor before becoming .Do not chew or crush. 01/13/2025 [id number] 4 2023 90 [employer] [facility] Antonio TURNER [place] [place] mirabegron ER 50 mg tablet = 1 tab(s), Oral, Daily, # 90 EA, 2 total [...] 5 2024 200.0 Ambulat ory Pharmac y needle pen 32g 4mm See Instruct ions, BID, with insulin pen., # 200 EA, 3 total refill(s ), Soft Stop Ordered 5 2024 200.0 Ambulat ory Pharmac y omega-3-aci d ethyl esters 1000 mg capsule See Instruct ions, # 180 EA, 2 total refill(s ), Hard Stop Discont inued 01/20/2024 4 2023 180.0 Ambulat ory Pharmac y omega-3-aci d ethyl esters 1000 mg capsule = 1 cap(s), Oral, BID, # 180 EA, 2 total [...] y pantoprazol e EC 40 mg tablet = 1 tab(s), Oral, every morning, # 90 EA, 2 [...] as directed .Do not take if . 01/13/2025 [id number] 4 2023 180 [facility] [place] TURNER [place] [place] valsartan 40 mg tablet See dose instruct [...] Pharmac y valsartan 40 mg tablet See Instruct ions, Oral, # 180 EA, 2 total refill(s ), Soft Stop Oral (given by mouth) Ordered 5 2024 180.0 Ambulat ory Pharmac y valsartan 40 mg tablet 40 mg, Oral, BID, # 180 EA, 2 total refill(s ), Hard Stop Oral (given by mouth) Discont inued 12/14/2024 2024 180.0 Ambulat ory Pharmac y venlafaxine [...] HCL) Drug allergy (disorder) Unknown active [address] [place] [address] Antonio ALAMO [place] [place] buPROPion Propensity to adverse reactions to drug Unknown Active 4 Unknown Organizat ion fexofenadine Propensity to adverse reactions to drug Unknown Active 4 Unknown Organizat ion WELLBUTRIN (BUPROPION HCL) Drug allergy (disorder) Unknown active [address] [place] [address] Antonio [facility] ([facility] [place] Immunizations Combined list of available immunizations from the Department of Defense and Veterans Affairs facilities. 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 Status Comments Source SARS-CoV-2 mRNA(topebblesnamblayne hef-ppka-ycu) vac 2021 217 [facility] complet ed SARS-CoV- 2 mRNA(tozi nameran-t ris-suc)v ac 01/04/22 Given Ambulat ory Pharmac y COVID-19, mRNA, LNP-S, PF, 30 mcg/0.3 mL dose, benita-sucrose 2021 ALUL, () Not Given COVID-19, mRNA, LNP-S, PF, 30 mcg/0.3 mL dose, benita-sucr ose DoD influenza, seasonal, injectable 2010 141 [employer] complet ed influenza , seasonal, injectabl e 05/04/11 Given Ambulat ory Pharmac y influenza virus vaccine,split 2004 zzRaul ht Arm [id number] 15 sanofi pasteur complet ed influenza virus vaccine,s plit 07/11/05 Given Ambulat ory Pharmac y influenza virus vaccine,split 2004 [id number] 15 sanofi pasteur complet ed influenza virus vaccine,s plit 07/11/05 Given Ambulat ory Pharmac y influenza virus vaccine, split virus (incl. purified surface antigen)-reti red CODE 1 2004 Unknown, Provider [id number] 15 Sanofi Pasteur ([facility]) complet ed influenza virus vaccine, split virus (incl. purified surface antigen)- retired CODE DoD influenza virus vaccine,split 2003 zzLef t Arm [id number] 15 sanofi pasteur complet ed influenza virus vaccine,s plit 07/12/04 Given Ambulat ory Pharmac y influenza virus vaccine,split 2003 [id number] 15 sanofi pasteur complet ed influenza virus vaccine,s plit 07/12/04 Given Ambulat ory Pharmac y influenza virus vaccine, split virus (incl. purified surface antigen)-reti red CODE 1 2003 Unknown, Provider [id number] 15 Sanofi Pasteur ([facility]) complet ed influenza virus vaccine, split virus (incl. purified surface antigen)- retired CODE DoD tuberculin purified protein derivative 2002 zzLef t Arm [id number] 96 sanofi pasteur complet ed Patient Tolerance : Negative Ambulat ory Pharmac y tuberculin purified protein derivative 2002 [id number] 96 sanofi pasteur complet ed tuberculi n purified protein derivativ e 07/16/03 Given Ambulat ory Pharmac y tuberculin skin test; purified protein derivative solution, intradermal 1 2002 Unknown, Provider [id number] 96 Sanofi Pasteur ([facility]) complet ed tuberculi n skin test; purified protein derivativ e solution, intraderm al DoD influenza virus vaccine, whole virus 2002 zzLef t Arm [id number] 16 sanofi pasteur complet ed influenza virus vaccine, whole virus 05/27/03 Given Ambulat ory Pharmac y influenza virus vaccine, whole virus 2002 [id number] 16 sanofi pasteur complet ed influenza virus vaccine, whole virus 05/27/03 Given Ambulat ory Pharmac y influenza virus vaccine, whole virus 1 2002 Unknown, Provider [id number] 16 Sanofi Pasteur ([facility]) complet ed influenza virus vaccine, whole virus DoD influenza virus vaccine, whole virus 2001 zzL t Arm [id number] 16 sanofi pasteur complet ed influenza virus vaccine, whole virus 07/07/02 Given Ambulat ory Pharmac y influenza virus vaccine, whole virus 2001 [id number] 16 sanofi pasteur complet ed influenza virus vaccine, whole virus 07/07/02 Given Ambulat ory Pharmac y influenza virus vaccine, whole virus 1 2001 Unknown, Provider [id number] 16 Sanofi Pasteur ([facility]) complet ed influenza virus vaccine, whole virus DoD influenza virus vaccine, whole virus 2000 zzRig ht Arm [id number] 16 sanofi pasteur complet ed influenza virus vaccine, whole virus 07/02/01 Given Ambulat ory Pharmac y influenza virus vaccine, whole virus 1 2000 Unknown, Provider [id number] 16 Sanofi Pasteur ([facility]) complet ed influenza virus vaccine, whole virus DoD influenza virus vaccine, whole virus 1998 [id number] 16 [employer] complet ed influenza virus vaccine, whole virus 06/14/99 Given Ambulat ory Pharmac y influenza virus vaccine, whole virus 1998 [id number] 16 [employer] complet ed influenza virus vaccine, whole virus 06/14/99 Given Ambulat ory Pharmac y influenza virus vaccine, whole virus 1 1998 Unknown, Provider [id number] 16 [employer] ([facility]) complet ed influenza virus vaccine, whole virus [...] ADM Date DC Date Status Disposition Source [address] [place] [address] Antonio TURNER [facility] OUTPATIENT [id number] 2 wk f/u for dizzine ss, fatigue , DM CARLEYALEXANDRO Perdomo NANY 11/10 Released w/o Limitations [address] [place] [address] Antonio TURNER [place] [place]S cott Interna l Medicin e Tm) [address] [place] [address] Antonio [facility]NER [facility] TELE CONSULT [id number] pt needs someone to call her ALEXANDRO CHAPPELL NANY 01/[address] [place] [address] Antonio TURNER [facility]S cott Interna l Medicin e Tm) [address] [place] [address] Antnoio TURNER ([facility] [place] ) OUTPATIENT [id number] follow- up DM, HTN, HLP, depress ion, osteope kvng REZA LAIRD 02/15 Released w/o Limitations [address] [place] [address] Antonio CALLYKeenan ([facility] [place] cott Interna l Medicin e Tm) [address] [place] [address] Antonio TURNER [place] [place] Internal Medicine Tm) TELE CONSULT [id number] med renewal BRENDA Storey 03/[address] [place] [address] Antonio [facility] [place]S cott Interna l Medicin e Tm) [address] [place] [address] Antonio [facility]NER [facility])([facility] Internal Medicine Tm) TELE CONSULT [id number] pt did not get renewal on GLARGIN E (LANTUS )--SQ 100UNIT BRENDA STOREY 03/[address] [place] [address] Antonio TURNER [place] [place] cott Interna l Medicin e Tm) [address] [place] [address] Antonio [facility]NER [facility] [place] Internal [facility] ) OUTPATIENT [id number] wrist pain/fa ll? VIDYA COLBERT 05/23 Released w/o Limitations [address] [place] [address] Antonio Keenan [place] [place] cott Intern[facility] l Medicin e Tm) [address] [place] [address] Antonio TURNER [facility] [place]Ot Neuromusc uloskelet al Clinic) OUTPATIENT [id number] left wrist pain: sprain SANGITA BOLAÑOS 05/23 Released w/o Limitations [address] [place] [address] Antonio TURNER [place] [place] [address] [place] [address] Antonio TURNER [facility] [place] - Orthopedi cs) OUTPATIENT [id number] f/u fx MIROSLAVA JENSEN 05/28 Immediate Referral [address] [place] [address] Antonio TURNER [facility]V A - Orthope dics) [address] [place] [address] Antonio TURNER [facility])(Occ upational Therapy) OUTPATIENT [id number] SANGITA BOLAÑOS 05/30 Released w/o Limitations [address] [place] [address] Antonio TURNER ([facility] [place]O ccupati onal Therapy ) [address] [place] [address] Antonio [facility] Internal Medicine ) TELE CONSULT [id number] appt BRENDA FERNANDEZ 06/01 [employer] Antonio TURNER ([facility] [place]S cott Interna l Medicin e Tm) [facility] Antonio TURNER ([facility] [place] ) OUTPATIENT [id number] needs form complet ed for worker' s comp tx MARIA A Chaparro 06/04 Released w/o Limitations [facility] Antonio TURNER ([facility] [place] cott Interna l Medicin e Tm) [facility] Antonio TURNER ([facility] [place] ) TELE CONSULT [id number] surgery SEUN CRUM B 06/07 [facility] Antonio [facility]URNER ([facility] [place]S cott Interna l Medicin e Tm) [facility] Antonio [facility]URNER ([facility] [place] ) TELE CONSULT [id number] post-op pain BRENDA FERNANDEZ 06/15 [facility] Antonio [facility]URNER ([facility] [place] cott Interna l Medicin e Tm) [facility] Antonio TURNER ([facility] [place] ) OUTPATIENT [id number] blood sugar issues REZA LAIRD Lindsey 07/11 Released w/o Limitations [facility] Antonio TURNER ([facility] [place] cott Interna l Medicin e Tm) [facility] Antonio [facility]NER [facility])([facility] Non-GME FHI1) TELE CONSULT [id number] Verific ation of surgica l procedu MARIA A Ge 07/19 [facility] Antonio TURNER [place] [place]F amily Practic e Non-GME FHI1) [facility] Antonio [facility]NER [facility] [place] Internal Medicine ) TELE CONSULT [id number] Med refill SEUN CRUM B 09/06 [facility] Antonio [facility]NER ([facility] [place]S cott Interna l Medicin e Tm) [facility] Antonio [facility]NER ([facility] [place] ) OUTPATIENT [id number] follow up MARIA A Vogel 09/12 Released w/o Limitations [facility] Antonio TURNER ([facility] [place]S cott Interna l Medicin e Tm) [facility] Antonio [facility]NER [facility] Non-GME FHI1) TELE CONSULT [id number] Verific ation of surgica l procedu re. MARIA A RUTH 09/[address] [place] [address] Antonio [facility])(F amily Practic e Non-GME FHI1) [address] [place] [address])([facility] Internal Medicine ) TELE CONSULT [id number] medicat ion request SEUN CRUM 09/[address] [place] [address] Antonio [facility])(S cott Interna l Medicin e Tm) [address] [place] [address])([facility] Internal Medicine ) OUTPATIENT [id number] high BS, SELF, hot flashes , anxiety , fatigue JAYLAN, ASSY 10/29 Released w/o Limitations [address] [place] [address])(S cott Interna l Medicin e Tm) [address] [place] [address])([facility] Internal Medicine ) OUTPATIENT [id number] f/u DM, HTN, med changes MARIA A RUTH 11/22 Released w/o Limitations [address] [place] [address])(S cott Interna l Medicin e Tm) [address] [place] [address])([facility] Internal [facility] ) TELE CONSULT [id number] bp concern s SEUN CRUM 11/[address] [place] [address])(S cott Interna l Medicin e Tm) [address] [place] [address])([facility] ) OUTPATIENT [id number] evaluat e HTN MARIA A RUTH 11/30 Released w/o Limitations [address] [place] [address])(S cott Interna l Medicin e Tm) [address] [place] [address])([facility] Internal [facility] ) TELE CONSULT [id number] questio n SEUN CRUM 12/[address] [place] [address])(S cott Interna l Medicin e Tm) [address] [place] [address])([facility] ) OUTPATIENT [id number] BI-LAT LEG, NECK/SH OULDER PAIN REZA LAIRD 01/14 Released w/o Limitations [address] [place] [address])(S cott Interna l Medicin e Tm) [address] [place] [address])([facility] ) TELE CONSULT [id number] LOLA Herrmann 04/[address] [place] [address])(S cott Interna l Medicin e Tm) [address] [place] [address])([facility] ) OUTPATIENT [id number] sciatic a, pain meds not working , MARIA A ABEL 04/19 Released w/o Limitations [address] [place] [address])(S cott Interna l Medicin e Tm) [address] [place] [address])([facility] ) TELE CONSULT [id number] problem s with glorias SEUN CRUM 05/[address] [place] [address])(S cott Interna l Medicin e Tm) [address] [place] [address])([facility] ) TELE CONSULT [id number] Depress RENETTA Batista P 05/[address] [place] [address])(S cott Interna l Medicin e Tm) [address] [place] [address])([facility] Internal [facility] ) TELE CONSULT [id number] Effexor not working and sicatic pain RENETTA VAZQUEZ P 05/[address] [place] [address])(S cott Interna l Medicin e Tm) [address] [place] [address])([facility] Internal [facility] ) TELE CONSULT [id number] infor RENETTA VAZQUEZ P 06/[address] [place] [address] Antonio [facility])(S cott Interna l Medicin e Tm) [address] [place] [address])([facility] Internal [facility] ) TELE CONSULT [id number] left shouldRENETTA Zuniga P 06/[address] [place] [address])(S cott Interna l Medicin e Tm) [address] [place] [address])([facility] ) TELE CONSULT [id number] referRENETTA Jacobson P 07/[address] [place] [address] Antonio [facility])(S cott Interna l Medicin e Tm) [address] [place] [address] Antonio [facility])([facility] Internal [facility] ) TELE CONSULT [id number] Possibl e Bladder infecti on RENETTA VAZQUEZ P 08/[address] [place] [address] Antonio [facility])(S cott Interna l Medicin e Tm) [address] [place] [address] Antonio [facility])([facility] Internal Medicine ) TELE CONSULT [id number] UTI RENETTA VAZQUEZ P 08/[address] [place] [address] Group Antonio [facility])(S cott Interna l Medicin e Tm) [address] [place], [place] [address] [facility])([facility] ) OUTPATIENT [id number] PAP MARIA A RUTH R 09/04 Released w/o Limitations [address] [place] [address] Group [facility])([facility]) [address] [place] [address] [facility])([facility] ) TELE CONSULT [id number] lab results RENETTA VAZQUEZ P 09/[address] [place] [address] Group [facility])([facility]) [address] [place] [address] [facility])([facility] ) OUTPATIENT [id number] follow up multipl e problem s and hot flashes MARIA A RUTH R 09/25 Released w/o Limitations [address] [place] [address] [facility])([facility]) [address] [place] [address] [facility])([facility] ) TELE CONSULT [id number] med renewal RENETTA VAZQUEZ P 10/[address] [place] [address] Group [facility])([facility]) [address] [place] [address] [facility])([facility] ) TELE CONSULT [id number] labs MARIA A RUTH R 10/[address] [place] [address] Group [facility])([facility]) [address] [place] [address] [facility])([facility] ) TELE CONSULT [id number] ct results RENETTA VAZQUEZ P 10/[address] [place] [address] Group [facility])([facility] Intern[facility]) [address] [place] [address])([facility] ) TELE CONSULT [id number] Leg swellin g and discolo ration RENETTA VAZQUEZ P 10/[address] [place] [address])([facility] Intern[facility]) [address] [place] [address])([facility] ) OUTPATIENT [id number] swellin g in legs and ankles MARIA A RUTH 10/23 Released w/o Limitations [address] [place] [address])([facility]) [address] [place] [address])([facility] ) TELE CONSULT [id number] B/P giovannyues RENETTA VAZQUEZ 10/[address] [place] [address])([facility]) [address] [place] [address])([facility] ) TELE CONSULT [id number] ROBB TEJADA 10/[address] [place] [address])([facility]) [address] [place] [address])([facility] ) TELE CONSULT [id number] scan results RENETTA VAZQUEZ 11/[address] [place] [address])([facility] cott Intern[facility] Medic[facility] Tm) Procedures Combined list of: 1) Procedures from Department of Veterans Affairs facilities [facility], not all VA non-surgical procedures are included; 2) All procedures from the Department of Defense facilities. Procedure Procedure Type Code Date Perfomer Comments Sourc e No data available for this section Ambulatory Pharmacy Arthrocentesis Injection Of Shoulder Joint Arthrocentesis Injection Of Shoulder Joint 006 RAJWINDERMADDI Abad Ck Injection, triamcinolone acetonide, not otherwise specified, 10 mg 006 RAJWINDERMADDI Abad [facility] Electrocardiogram Electrocardiogram 65532 01/15 006 RAJWINDERMADDI Abad [facility] Electrocardiogram Electrocardiogram 51016 12/03 006 RAJWINDERMADDI Abad Ck Influenza Split Virus Vaccine Age 3+ Years Intramuscular 005 RAJWINDERMADDI Abad Ck Occupational Therapy Re-Evaluation Occupational Therapy Re-Evaluation 05524 005 SANGITA BOLAÑOS Wrist hand orthosis, wrist extension control cock-up, non molded, prefabricated, [id number] SANGITA BOLAÑOS [facility] Occupational Therapy Evaluation Occupational Therapy Evaluation 50834 SANGITA BOLAÑOS [facility] INJECTION, TRIAMCINOLONE ACETONIDE, NOT OTHERWISE SPECIFIED, 10 MG [facility] ELECTROCARDIOGRAM, ROUTINE ECG WITH AT LEAST 12 LEADS; WITH INTERPRETATION AND REPORT [facility] ELECTROCARDIOGRAM, ROUTINE ECG WITH AT LEAST 12 LEADS; WITH INTERPRETATION AND REPORT [facility] INFLUENZA VIRUS VACCINE, TRIVALENT (IIV3), SPLIT VIRUS, 0.5 ML DOSAGE, FOR INTRAMUSCULAR USE [facility] OCCUPATIONAL THERAPY RE-EVALUATION [facility] WRIST HAND ORTHOSIS, WRIST EXTENSION CONTROL COCK-UP, NON MOLDED, PREFABRICATED, [id number] [facility] INFECTIOUS AGENT ANTIGEN DETECTION BY IMMUNOASSAY WITH DIRECT OPTICAL (IE, VISUAL) OBSERVATION; INFLUENZA [facility] SEDATION WITH OR WITHOUT ANALGESIA (CONSCIOUS SEDATION); INTRAVENOUS, INTRAMUSCULAR OR INHALATION [facility] OPHTHALMOLOGICAL SERVICES: MEDICAL EXAMINATION AND EVALUATION, WITH INITIATION OR CONTINUATION OF DIAGNOSTIC AND TREATMENT PROGRAM; INTERMEDIATE, ESTABLISHED PATIENT [facility] INTERPRETATION OR EXPLANATION OF RESULTS OF PSYCHIATRIC, OTH MEDICAL EXAMS/PROCEDURES, OR OTH ACCUMULATED DATA TO FAMILY OR OTH RESPONSIBLE PERSONS,OR ADVISING THEM HOW TO ASSIST PATIENT [facility] EDUCATIONAL SUPPLIES, SUCH BOOKS, TAPES, AND PAMPHLETS, FOR THE PATIENT'S EDUCATION AT COST TO PHYSICIAN OR OTHER QUALIFIED HEALTH COUNSELING SPECIALIST [facility] INJECTION, TRIAMCINOLONE ACETONIDE, NOT OTHERWISE SPECIFIED, 10 MG [facility] INJECTION, METHYLPREDNISOLONE SODIUM SUCCINATE, UP TO 40 MG [facility] INFLUENZA VIRUS VACCINE, TRIVALENT (IIV3), SPLIT VIRUS, 0.5 ML DOSAGE, FOR INTRAMUSCULAR USE [facility] Social History Combined list of available smoking, tobacco, and other social history from Department of Defense and Veterans Affairs facilities. Social History Type Response Date Comment [facility] e This section is an empty social [...] Plan No data available for this section 01/27/2025 Ambulatory Pharmacy Functional Status Combined list of recent functional and cognitive assessments recorded at Department of Defense and Veterans Affairs (VA).VA Functional [place] Measurement (FIM) Scale: 1 = Total Assistance (Subject = 0% +), 2 = Maximal Assistance (Subject = 25% +), 3 = Moderate Assistance (Subject = 50% +), 4 = Minimal Assistance (Subject = 75% +), 5 = Supervision, 6 = Modified [place] (Device), 7 = Complete [place] (Timely, Safely). Assessment Date/Time Source Assessment Type Assessment Skill Assessment Score Assessment Details No data available for this section
--- OUTSIDE RECORDS SUMMARY | 2025-01-27 11:32 | XMS_ITS | Clinical Summary ---
Author Organization [facility] Address [address] [place] [address] Care Team Providers Care Tube Tester Name Role Phone Axel Price MD [...] 1 tablet (120 mg total) daily Active cyclobenzaprine (FLEXERIL) 10 mg tablet Take 1 tablet (10 mg total) by mouth 3 (three) times a day as needed Active lancets (freestyle) 28 gauge misc 4 times daily MDD:4 TDD:4 6 Active blood-glucose meter (FREESTYLE LITE METER) kit USE DIRECTED. 6 Active insulin syringe-needle U-100 (INSULIN SYRINGE) 1 mL 29 gauge x 1/2 syringe 9 Active acetaminophen (TYLENOL) 500 mg tablet Take 1 tablet (500 mg total) by mouth every 6 hours as needed Active marlin cpe-sqi-J0-Zn-co p-man-bor 250-40-125 mg-mg-unit tablet Take by mouth. 7 Active cyanocobalamin (Vitamin B-12) 1,[address] under the tongue daily. Active hydrALAZINE (APRESOLINE) 50 mg tabletIndication s:hypertension Take 1 tablet (50 mg total) by mouth 3 (three) times a day Active montelukast (SINGULAIR) 10 mg tablet Take 10 mg by mouth nightly Active naloxone (NARCAN) 4 mg/actuation spray,non-aeroso l SPRAY ONCE into nostril FOR opioid emergency. REPEAT IN 2-3 minutes. call 911 8 Active valsartan (DIOVAN) 40 mg tablet Take 1 tablet (40 mg total) by mouth daily Active atorvastatin (LIPITOR) 20 mg tablet Take 1 tablet (20 mg total) by mouth Active calcium citrate-vitamin D3 (CITRACAL WITH D) 315-250 mg-unit per tablet Take by mouth daily. Active hydroCHLOROthiaz yuniel (HYDRODIURIL) 25 mg tablet Take 1 tablet [...] by mouth 3 times daily Active omega 7-tzh-xxl-fish oil (OMEGA-3) 350 mg-235 mg- 90 mg-597 mg capsule,delayed release(DR/EC) Take by mouth 8 Active busPIRone (BUSPAR) 5 mg tabletIndication s:Generalized Anxiety Disorder Take 1 tablet (5 mg total) by mouth daily Active oxyCODONE-acetam inophen (PERCOCET) 5-325 mg per tabletIndication s:Pain Take 1 tablet by mouth every 4 (four) hours as needed for pain 20 tablet 0 Active Additional Information Patient not taking.Reported on 10/27/2024 losartan (COZAAR) 25 mg tablet losartan 25 mg tablet Active doxycycline (doxycycline) 100 mg capsule doxycycline hyclate 100 mg tablet Active collagenase (SantyL) ointment Active amoxicillin (amoxicillin) 500 mg tablet/capsule amoxicillin 500 mg capsule Active clindamycin (CLEOCIN) 300 mg capsule TAKE 1 CAPSULE BY MOUTH EVERY 8 HOURS 1 Active docusate sodium (COLACE) 100 mg capsule 1 Active latanoprost (XALATAN) 0.005 % ophthalmic solution 1 Active omega-3 fatty acids (LOVAZA) 1 gram capsule [address] (PROTONIX) 40 mg EC tablet 1 Active aspirin 81 mg enteric coated tablet 3 Active FLUoxetine (PROzac) 40 mg capsule 3 Active HYDROmorphone, bulk, (DILAUDID) 100 % powder 0 3 Active glucagon (BAQSIMI) 3 mg/actuation spray,non-aeroso lIndications:hyp oglycemic disorder Administer 1 spray (3 mg total) into one nostril as needed (severe hypoglycemia, repeat in 15 mins if needed with new device) 2 each 3 Active blood-glucose transmitter (Dexcom G6 Transmitter) device Use as directed 3 each 3 3 Active blood-glucose meter,continuous (Dexcom G6 Co Chairman) misc Use as directed 1 each 3 Active blood-glucose meter,continuous (Dexcom G7 Co Chairman) miscIndications: Type 2 diabetes mellitus with diabetic polyneuropathy, with long-term current use of insulin ([facility]) Please use receivers to monitor blood glucose levels continuously. 1 each 3 Active blood-glucose sensor (Dexcom G7 Sensor) deviceIndication s:Type 2 diabetes mellitus with diabetic polyneuropathy, with long-term current use of insulin ([facility]) Will use 3 sensors per month to check blood sugar continuously. 3 each 4 Active LANTUS 100 unit/mL (3 mL) pen for injectionIndicat ions:Type 2 diabetes mellitus with diabetic polyneuropathy, with long-term current use of insulin ([facility]) Inject 55 units under the skin twice daily. 105 mL 3 4 Active empagliflozin (JARDIANCE) 10 mg tabletIndication s:Type 2 diabetes mellitus with diabetic polyneuropathy, with long-term current use of insulin (HCC) Take 1 tablet (10 mg total) by mouth daily 90 tablet 3 4 Active empagliflozin (JARDIANCE) 10 mg tabletIndication s:Type 2 diabetes mellitus with diabetic polyneuropathy, with long-term current use of insulin (HCC) Take 1 tablet (10 mg total) by mouth daily 3 tablet 4 Active FreeStyle Lite Strips stripIndications :Type 2 diabetes mellitus with diabetic polyneuropathy, with long-term current use of insulin ([facility]) Use to check blood glucose levels 3 times daily. 300 each 3 5 Active pen needle, diabetic (Unifine Pentips) 32 gauge x 5/32 needleIndication s:Type 2 diabetes mellitus with diabetic polyneuropathy, with long-term current use of insulin ([facility]) Use twice daily with insulin pen 200 each 3 5 Active Active Problems Problem Noted Date Diagnosed Date Chronic pain syndrome 06/03/2020 Overview (06/03/2020): Added automatically from request for surgery [id number] Subclinical hypothyroidism 07/08/2018 Assessment & Plan (07/08/2018 3:12 PM SENIOR CREDIT OFFICER): Clinically euthyroid w/o treatment and last TSH normal 3.28 and may be age related elevation previously. -monitor with period TFT Mixed hyperlipidemia 07/08/2018 Assessment & Plan (07/08/2018 3:13 PM SENIOR CREDIT OFFICER): LDL 57 excellent control on lipitor TG at goal 12/2017 on lovaza 4g Iron deficiency anemia 07/08/2018 Assessment & Plan (07/08/2018 3:13 PM SENIOR CREDIT OFFICER): Pt has been evaluated by hematology and appropriate work up performed HTN (hypertension), benign 12/19/2017 Major depression 12/19/2017 Spinal stenosis 12/19/2017 Type 2 diabetes mellitus wit h neurologic complication, with long-term current use of insulin 02/15/2015 Assessment & Plan (07/08/2018 3:12 PM SENIOR CREDIT OFFICER): Controlled A1c 7.4, but may be discrepant [...] Encounters Date Type Department Care Team Description 11/11/2024 Telephone [facility] Endocrinology Metabolism and Lipid [address] [facility] 5th [place] [address] [place] [address] aDgo Garza RN 10/27/2024 1:40 PM CDT Office Visit [facility] Endocrinology Metabolism and Lipid [address] [facility] 5[address] [place] [address] [place] [id number] Aleksander Willis MD Type 2 diabetes mellitus with diabetic polyneuropathy, with long-term current use of insulin (HCC) (Primary Dx) from Last 3 Months Immunizations Immunization Administration [...] on file Legal Sex Female 2:40 AM SENIOR CREDIT OFFICER Gender Identity Not on file Sexual Orientation Not on file Obstetrics History Last Filed Vital Signs Vital Sign Reading Time Taken Comments Blood Pressure 111/49 10/27/2024 1:25 PM CDT Pulse 62 10/27/2024 1:25 PM CDT Temperature 36.8 C (98.2 F) 10/27/2024 1:25 PM CDT Respiratory Rate 18 06/25/2020 7:55 AM SENIOR CREDIT OFFICER Oxygen Saturation 94% 06/25/2020 7:55 AM SENIOR CREDIT OFFICER Inhaled Oxygen Concentration - - Weight 77.1 kg (170 lb) 10/27/2024 1:25 PM CDT Height 168.4 cm (5' 6.3) 10/27/2024 1:25 PM CDT Body Mass Index [...] 03/12/2023, 02/13/2017 eGFR 03/12/2024 03/12/2023 Influenza Vaccine (Season Ended) 2025 04/09/2020, 05/13/2017, 05/03/2016, Additional history exists Hemoglobin A1C 04/29/2025 10/27/2024, 0910/2023, 09/06/2023, Additional history exists Medical Devices Implanted Type Area Gear Lapping Machine Operator Device Identifier Shelf Expiration Date Model / Serial / Lot Medtronic Neuro 8637-20 Synchromed Ii .78in [place] Filter Mesh Pouch Programmable - [id number] - [id number] Implanted:Qty: 1 on 06/24/2020 by Sabrina Whiting MD at [facility] [employer] 11/23/2021 8637 -20 / [id number] / Procedures Procedure Name Priority Date/Time Associated [...] 2:05 PM CDT) Triglycerides 160(H) <150 mg/dL [facility] Comment: Desirable: <150 mg/dL, fasting <175 mg/dL, non-fasting Persistently elevated triglycerides may enhance atherosclerotic cardiovascular disease. Total Cholesterol 123 <200 mg/dL [facility] Total HDL-C Direct 31(L) >50 mg/dL [facility] Comment: A low HDL-C may be inidcative of metabolic syndrome and enhance atherosclerotic cardiovascular disease risk. Non-HDL cholesterol 92 <220 mg/dL [facility] [place] LDL Chol 60 <190 mg/dL [facility] Comment: The inaccuracy of the [place] equation [...] PM CDT 03/12/2023 3:33 PM CDT Narrative [facility] - 03/12/2023 4:19 PM CDT Current interpretive data was last updated July 14, 2021. For adults ages 40-79, the ACC/AHA recommends discussing your 10-year atherosclerotic cardiovascular disease risk with your health care provider. [email or web address].org/ASCVDApp us Urbano Childers MD LAB BLOOD ORDERABLES Final Resu lt [facility] * [...] Advance Directives For more information, please contact: [phone] * Full Code (Latest Code Status on File) Date Activated Date Inactivated Comments 06/24/2020 4:31 PM 06/25/2020 3:40 PM Care Teams Tube Tester Relationship Specialty Start Date End Date Axel Price MD [address] [facility] [address] [place] [address] PCP - General 02/05/17
--- OUTSIDE RECORDS SUMMARY | 2025-01-27 11:32 | XMS_ITS | Referral Summary ---
Author Organization [facility] Address [address] [place] [address] Care Team Providers Care Early Childhood Services Coordinator Name Role Phone Axel Price MD Primary Care Provider Encounters Date Type Department Care Team Description 11/11/2024 Telephone [facility] Endocrinology Metabolism and Lipid [address] [facility] [address]th [place] [address] [place] [address] Dago Garza RN 10/27/2024 1:40 PM CDT Office Visit [facility] Endocrinology Metabolism and Lipid [address] [facility] [address] [place] [address] [place] [address] Aleksander Willis MD Type 2 diabetes mellitus with diabetic polyneuropathy, with long-term current use of insulin (HCC) (Primary Dx) from Last 3 Months Allergies Active Allergy [...] every 6 hours as needed Active marlin pmy-exc-R0-Zn-co p-man-bor 250-40-125 mg-mg-unit tablet Take by mouth. [...] by mouth 3 times daily Active omega 3-msv-rlm-fish oil (OMEGA-3) 350 mg-235 mg- 90 mg-597 [...] if needed with new device) 2 each 11 3 Active blood-glucose transmitter (Dexcom G6 Transmitter) device Use as directed 3 each 3 3 Active blood-glucose meter,continuous (Dexcom G6 Pump House Operator) misc Use as directed 1 each 3 Active blood-glucose meter,continuous (Dexcom G7 Pump House Operator) miscIndications: Type 2 diabetes mellitus with diabetic polyneuropathy, with long-term current use of insulin (HCC) Please use receivers to monitor blood glucose levels continuously. 1 each 3 Active blood-glucose sensor (Dexcom G7 Sensor) deviceIndication s:Type 2 diabetes mellitus with diabetic polyneuropathy, with long-term current use of insulin (HCC) Will use 3 sensors per month to check blood sugar continuously. 3 each 11 4 Active LANTUS 100 unit/mL (3 mL) pen for injectionIndicat ions:Type 2 diabetes mellitus with diabetic polyneuropathy, with long-term current use of insulin ([facility]) Inject 55 units under the skin twice [...] polyneuropathy, with long-term current use of insulin ([facility]) Take 1 tablet (10 mg total) by [...] (06/03/2020): Added automatically from request for surgery [id number] Subclinical hypothyroidism 07/08/2018 Assessment & Plan (07/08/2018 3:12 PM PC ANALYST): Clinically euthyroid w/o treatment and last TSH normal 3.28 and may be age related elevation previously. -monitor with period TFT Mixed hyperlipidemia 07/08/2018 Assessment & Plan (07/08/2018 3:13 PM PC ANALYST): LDL 57 excellent control on lipitor TG at goal 12/2017 on lovaza 4g Iron deficiency anemia 07/08/2018 Assessment & Plan (07/08/2018 3:13 PM PC ANALYST): Pt has been evaluated by hematology and appropriate work up performed HTN (hypertension), benign 12/19/2017 Major depression 12/19/2017 Spinal stenosis 12/19/2017 Type 2 diabetes mellitus wit h neurologic complication, with long-term current use of insulin 02/15/2015 Assessment & Plan (07/08/2018 3:12 PM PC ANALYST): Controlled A1c 7.4, but may be discrepant [...] on file Legal Sex Female 2:40 AM PC ANALYST Gender Identity Not on file Sexual Orientation Not on file Last Filed Vital Signs Vital Sign Reading Time Taken Comments Blood Pressure 111/49 10/27/2024 1:25 PM CDT Pulse 62 10/27/2024 1:25 PM CDT Temperature 36.8 C (98.2 F) 10/27/2024 1:25 PM CDT Respiratory Rate 18 06/25/2020 7:55 AM PC ANALYST Oxygen Saturation 94% 06/25/2020 7:55 AM PC ANALYST Inhaled Oxygen Concentration - - Weight 77.1 kg (170 lb) 10/27/2024 1:25 PM CDT Height 168.4 cm (5' 6.3) 10/27/2024 1:25 PM CDT Body Mass Index 27.19 10/27/2024 1:25 PM CDT Plan of Treatment Not on file Medical Devices Implanted Type Area Senior Technical Recruiter Device Identifier Shelf Expiration Date Model / Serial / Lot Medtronic Neuro 8637-20 Synchromed Ii .78in [place] Filter Mesh Pouch Programmable - [id number] - [id number] Implanted:Qty: 1 on 06/24/2020 by Sabrina Whiting MD at [facility] [employer] 11/23/2021 8637 -20 / [id number] / Procedures Procedure Name Priority Date/Time Associated [...] POCT hemoglobin A1c (10/27/2024 1:35 PM CDT) Pathologist [facility] Hemoglobin A1C, POC 9.3 4.0 - 5.6 % Blood 10/27/2024 1:35 PM CDT Aleksander Willis MD POINT OF CARE TEST ORDER ARTEMIO Final Result * (ABNORMAL) Lipid panel (03/12/2023 2:05 PM CDT) Pathologist [facility] Triglycerides 160(H) <150 mg/dL [facility] Comment: Desirable: <150 mg/dL, fasting [...] PM CDT 03/12/2023 3:33 PM CDT Narrative [facility] - 03/12/2023 4:19 PM CDT Current interpretive data was last updated July 14, 2021. For adults ages 40-79, the ACC/AHA recommends discussing your 10-year atherosclerotic cardiovascular disease risk with your health care provider. [email or web address].org/ASCVDApp us Urbano Childers MD LAB BLOOD ORDERABLES Final Resu lt [facility] [...] Health Maintenance Insurance MEDICARE FOR LIFE MEDICARE [facility] Address: [address] [address] [place] [address] FOR LIFE Advance Directives For more information, please contact: [phone] * Full Code (Latest Code Status on File) Date Activated Date Inactivated Comments 06/24/2020 4:31 PM 06/25/2020 3:40 PM Care Teams Early Childhood Services Coordinator Relationship Specialty Start Date End Date Axel Price MD [address] [facility] [address] [place] [address] PCP - General 02/05/17
--- OUTSIDE RECORDS SUMMARY | 2025-01-27 11:32 | XMS_ITS | Continuity of Care Document ---
Author Organization [facility] Address [address] [place] [address] Phone Care Team Providers Care Coke Production Heater Name Role Phone [facility] [employer] Unavailable [...] Diagnoses Date Provider Providers Copied on Encounter [facility], [address] [place] [address] [address], [place], [place], [id number], [place] tel:[phone] [facility] No Information 7 9 [facility] [email or web address] . [address] [facility], [facility] [address], [place], [id number], [place]. tel:[phone] Referring Provider: Ernie Perdomo, [address], [place], [address]. tel:[phone] magana Provider: Belen Webster, [address] [facility], [place], [address]. tel:[phone] [facility], [address], [place], [place], [id number], [place] tel:[phone] [facility] No Information 0-200 9 Doisy Edward. [address] [facility] , [address], [place], [address], [place]. tel:[phone] Office/outpat ient Visit, [facility], [address], [place], [place], [id number], tel:[phone] [facility] No Information [phone] Frankel OD Akira. [address] [facility] , [address], [place], [place], [facility], [place]. tel:[phone] [facility], [address], [place], [place], [id number], tel:[phone] [facility] No Information [phone] 9 Frankel OD Akira. [address] [facility] , [address], [place], [place], [facility], [place]. tel:[phone] [facility], [address], [place], [place], [address], tel:[phone] [facility] No Information 0 [phone] Scanlon Neeta. [address] [facility] , [address], [place], [place], [facility], . tel:[phone] Family History Family Member Type Diagnosis Age At Onset No Information Payers Payer name Insurance type Covered libertarian ID Authoriza tion(s) No Information Social History [...]
--- OUTSIDE RECORDS SUMMARY | 2025-01-27 11:32 | XMS_ITS | Clinical Summary ---
Author Organization [facility] Address [address] [place] [address] Care Team Providers Care Staff Development Nurse Name Role Phone Axel Price MD Primary Care Provider [phone] Allergies Active Allergy Reactions Criticality Noted Date [...] Rash Low 08/20/2007 Medications NARCAN 4 mg/actuation [place], Non-Aerosol SPRAY ONCE into nostril FOR opioid [...] 25 mg tablet Take by mouth daily buckle strap drum operator. Active montelukast (SINGULAIR) 10 mg tablet Take [...] tablet losartan 25 mg tablet Active Insulin [place], Disposable, (Sure Comfort Pen Needle) 31 gauge [...] Encounters Date Type Department Care Team Description 01/12/2025 External Device Data ST[facility] ABSTRACTION Provider, Abstract [...] Date Smoking Tobacco: Former Cigarettes 1 1 - 2004 Smokeless Tobacco: Never Tobacco Cessation:Counseling [...] 12:25 PM CDT Height 165.1 cm (5' 5) 05/02/2021 1:36 PM CDT Body Mass Index 27.29 05/02/2021 1:36 PM CDT Plan of Treatment Upcoming Encounters Date Type Department Care Team (Late st Contact Info) Description 01/29/2025 11:00 AM CDT Office Visit [facility] Oncology and Hematology [facility] [address] [place] [address] Jason Buckley MD [address] [facility] [address] [place] [address] Health Maintenance Due Date Last [...] history exists INFLUENZA VACCINE (#1) 2024 05/04/2011 OSTEOPOROSIS SCREENING 09/23/2024 09/23/2019 DIABETES HBA1C Q 6 MONTHS 10/12/20242023, 09/06/2023, 03/12/2023, Additional history exists COLORECTAL SCREENING 09/12/2032 09/12/2022 Colorectal Cancer Screening 09/12/2032 Procedures Procedure Name Priority Date/Time Associated Diagnosis [...] A AND B FOR LIFE Care Teams Staff Development Nurse Relationship Specialty Start Date End Date Axel Price MD [address] [address] PCP - General Family Practice 12/19/17
--- OUTSIDE RECORDS SUMMARY | 2025-01-27 11:32 | XMS_ITS | Patient Health Record ---
Author Organization [facility] [employer] Address [address] [place] [address] Care Team Providers Care Craft Recruiter Name Role Phone Axel Price MD Primary Care Provider UnavailKrissy Clay Unavailable [phone] Mel Delcid Unavailable [phone] Cristiana Hansen Unavailable [phone] Allergies Allergen (clinical drug ingredient) Drug/Non Drug [...] Duration) Notes Start Date End Date Status Aspirin 81 81 MG 1 tablet Orally Once a day Active Atorvastatin Calcium 20 MG Oral 12/17/2023 Active Metoprolol Succinate ER 50 MG Oral 12/17/2023 Active Calcium Carbonate 1250 (500 Ca) MG 1 tablet with food Orally Twice a day Active Jardiance 10 MG Oral 12/17/2023 Act emely Lantus 100 UNIT/ML as directed Subcutaneous Active Loratadine 10 MG Oral 12/17/2023 Ac tive Ferrous Sulfate 325 (65 Fe) MG 1 tablet Orally Three times a Week Active Myrbetriq 50 MG Oral 12/17/2023 Act emely Ascorbic Acid 500 MG 1 tablet Orally Onc e a day Active Docusate Sodium 100 MG Oral 12/17/2023 Active busPIRone HCl 10 MG 1 tablet Oral 3 time s a day for 90 days 04/20/2025 Active Pantoprazole Sodium 40 MG Oral 12/17/2023 Active Latanoprost 0.005 % Ophthalmic 12/17/2023 Active FLUoxetine HCl 40 MG 1 capsule Oral Once a day for 90 days 12/17/2023 Active Silver - as directed Externally Active Chwuf-3-socc Ethyl Esters 1 GM Oral 12/17/2023 Active Valsartan 40 MG 1 tablet Orally Twic e a day Active hydroCHLOROthiazide 25 MG Oral 12/17/2023 Active Vitamin B12 100 MCG as directed Orally Active Compazine Active Cyclobenzaprine HCl 5 MG Oral 12/17/2023 Active Immunizations Vaccine Route [...] History Observation Description Sex Assigned At Female Household Question Answer Notes Marital status: Number of adults in household: 3 h er two adult children live with her Tobacco Control (Standard) Question Answer Notes Tobacco [...] Do you have a medical power of licensing representative?: No Substance Use Do you or have [...] Do you have a medical power of licensing representative?: No Substance Use Do you or have [...] Do you have a medical power of licensing representative?: No Substance Use Do you or have [...] Do you have a medical power of licensing representative?: No Substance Use Do you or have [...] Do you have a medical power of licensing representative?: No Substance Use Do you or have [...] Do you have a medical power of licensing representative?: No Substance Use Do you or have [...] Do you have a medical power of licensing representative?: No Substance Use Do you or have [...] Do you have a medical power of licensing representative?: No Problems Problem Type SNOMED Code ICD Code Onset Dates Problem Status W/U Status Risk Notes Problem Moderate recurrent major depression (02571027) Major depressive disorder, recurrent, moderate (F33.1) Active confirmed Problem Recurrent major depression in remission (04106695) Major depressive disorder, recurrent, in partial remission (F33.41) Active confirmed Problem Generalized anxiety disorder (62635625) Generalized anxiety disorder (F41.1) Active confirmed Problem Primary insomnia (8536277) Primary insomnia (F51.01) 4 Active confirmed Problem Obstructive sleep apnea syndrome (disorder) (03079574) Obstructive sleep apnea (adult) (pediatric) (G47.33) 4 Active confirmed Problem Disturbed family (finding) (944447291) Family discord (Z63.8) Active confirmed Problem Essential hypertension (75779111) Benign essential HTN (I10) Active confirmed Vital Signs Heart Rate 71 /min 01/20/2025 Height-cm 167.64 cm 01/20/2025 Blood pressure diastolic 53 mm Hg 01/20/2025 Weight-kg 76.66 kg 01/20/2025 Height 66.00 in 01/20/2025 Blood pressure systolic 104 mm Hg 01/20/2025 Weight 169 lbs 01/20/2025 BMI 27.27 kg/m2 01/20/2025 Encounters Encounter Location Date Provider Diagnosis [address] [address] 01/30/2024 Mel Hemann Generalized anxiety disorder F41.1 and Major depressive disorder, recurrent, moderate F33.[address] [address] 03/17/2024 Cristiana Hansen Generalized anxiety disorder F41.1 ; Major depressive disorder, recurrent, mild F33.0 ; Primary insomnia F51.01 ; Obstructive sleep apnea (adult) (pediatric) G47.33 and Iron deficiency anemia, unspecified D50.[address] [address] 05/19/2024 Mel Hemann Generalized anxiety disorder F41.1 and Major depressive disorder, recurrent, moderate F33.1 [facility] [address] [address] 06/09/2024 Mel Hemann Major depressive disorder, recurrent, moderate F33.1 and Generalized anxiety disorder F41.[address] [address] 06/30/2024 Mel Hemann Major depressive disorder, recurrent, moderate F33.1 and Generalized anxiety disorder F41.[address] [address] 07/15/2024 Krissy Hagopian Major depressive disorder, recurrent, moderate F33.1 ; Generalized anxiety disorder F41.1 ; Primary insomnia F51.01 ; Family discord Z63.8 ; Obstructive sleep apnea (adult) (pediatric) G47.33 and Iron deficiency anemia, unspecified D50.[address] [address] 07/17/2024 Mel Hemann Major depressive disorder, recurrent, moderate F33.1 and Generalized anxiety disorder F41.[address] [address] 10/20/2024 Mel Hemann Major depressive disorder, recurrent, moderate F33.1 and Generalized anxiety disorder F41.[address] [address] 10/20/2024 Krissy Hagopian Major depressive disorder, recurrent, in partial remission F33.41 ; Generalized anxiety disorder F41.1 ; Benign essential HTN I10 and Encounter for screening for depression Z13.[address] [address] 11/20/2024 Mel Hemann Major depressive disorder, recurrent, moderate F33.1 and Generalized anxiety disorder F41.[address] [address] 12/18/2024 Mel Hemann Major depressive disorder, recurrent, moderate F33.1 and Generalized anxiety disorder F41.[address] [address] 01/20/2025 Krissydee Delgado Major depressive disorder, recurrent, in partial remission F33.41 ; Family discord Z63.8 ; Generalized anxiety disorder F41.1 ; Obstructive sleep apnea (adult) (pediatric) G47.33 ; Encounter for screening for cardiovascular disorders Z13.6 and Negative depression screening Z13.31 [place] [address] [facility] [address] [address] 01/22/2025 Mel Hemann Major depressive disorder, recurrent, moderate F33.1 and Generalized anxiety disorder F41.[address] [address] 02/28/2024 Cristiana Hansen [facility], [facility] [address] [place] [address] 02/28/2024 Cristiana Hansen Generalized anxiety disorder F41.1 [facility], [facility] [address] [place] [address] 02/28/2024 Cristiana Hansen [facility], [facility] [address] [place] [address] 03/02/2024 Cristiana Hansen Generalized anxiety disorder F41.1 [facility], [facility] [address] [place] [address] 03/04/2024 Mel Delcid [facility], [facility] [address] [facility] [address] [place] [address] 07/17/2024 Krissy Delgado [facility], [facility] [address] [place] [address] 10/02/2024 Krissy Delgado Generalized anxiety disorder F41.1 [facility], [place] [address] [facility] [address] [place] [address] 12/16/2024 Krissy Delgado Major depressive disorder, recurrent, in partial remission F33.41 Assessments Encounter Date Diagnosis (ICD Code) Assessment Notes Treatment Notes Treatment Clinical Notes Section Notes 03/17/2024 Generalized anxiety disorder (ICD-10 - F41.1) cont buspar 10mg TIDcont prozac 40mg qam cont counseling wants sent to [facility] today doing well currently, no new orders recommend cont counseling f/u in 3 months, earlier if concerns notes:-CKD (stage 3 per note), complicated medical av-yegn-hhde opiate therapy, has stopped bzo 03/17/2024 Major depressive disorder, recurrent, mild (ICD-10 - F33.0) better, has intermittent meds, counseling as above 01/22/2025 Major depressive disorder, recurrent, moderate (ICD-10 - F33.1) 01/22/2025 Generalized anxiety disorder (ICD-10 - F41.1) 12/16/2024 Major depressive disorder, recurrent, in partial remission (ICD-10 - F33.41) 07/15/2024 Major depressive disorder, recurrent, moderate (ICD-10 [...] Follow-up 3 months, sooner if concerns arise 01/20/2025 Family discord (ICD-10 - Z63.8) 01/30/2024 Major depressive disorder, recurrent, moderate (ICD-10 [...] 06/30/2024 Generalized anxiety disorder (ICD-10 - F41.1) 07/17/2024 Major depressive disorder, recurrent, moderate (ICD-10 - F33.1) 07/17/2024 Generalized anxiety disorder (ICD-10 - F41.1) 10/02/2024 Generalized anxiety disorder (ICD-10 - F41.1) 10/20/2024 Major depressive disorder, recurrent, moderate (ICD-10 - F33.1) 10/20/2024 Generalized anxiety disorder (ICD-10 - F41.1) 10/20/2024 Major depressive disorder, recurrent, in partial remission (ICD-10 - F33.41) 10/20/2024 Generalized anxiety disorder (ICD-10 - F41.1) 11/20/2024 Major depressive disorder, recurrent, moderate (ICD-10 - F33.1) 11/20/2024 Generalized anxiety disorder (ICD-10 - F41.1) 12/18/2024 Major depressive disorder, recurrent, moderate (ICD-10 - F33.1) 12/18/2024 Generalized anxiety disorder (ICD-10 - F41.1) 01/20/2025 Major depressive disorder, recurrent, in partial remission (ICD-10 - F33.41) 01/20/2025 Generalized anxiety disorder (ICD-10 - F41.1) 03/02/2024 Generalized anxiety disorder (ICD-10 - F41.1) Electronic Prior Authorization was requested for busPIRone HCl 10 MG Tablet. Provider can order medication once approval received. 07/15/2024 Primary insomnia (ICD-10 - F51.01) Depression [...] can order medication once approval received. 10/20/2024 Benign essential HTN (ICD-10 - I10) 03/17/2024 Primary insomnia (ICD-10 - F51.01) has [...] Follow-up 3 months, sooner if concerns arise 01/20/2025 Obstructive sleep apnea (adult) (pediatric) (ICD-10 - G47.33) 10/20/2024 Encounter for screening for depression (ICD-10 - Z13.31) 01/20/2025 Encounter for screening for cardiovascular disorders (ICD-10 - Z13.6) 03/17/2024 Iron deficiency anemia, unspecified (ICD-10 - [...] Follow-up 3 months, sooner if concerns arise 01/20/2025 Negative depression screening (ICD-10 - Z13.31) 07/15/2024 Iron deficiency anemia, unspecified (ICD-10 - [...] 3 months, sooner if concerns arise 07/15/2024 Other referral to the local chapter or national office of the Alzheimer's Association ( ; http://www.alz. org), the Alzheimer's Disease Education and Referral Center (ADEAR) ( ; http://www.kvng. nih.gov/Alzheim ers/), Depression and Anxiety - Reports increased depressive [...] Other no refills needed at this time Irene Munguia, female patient with history of anxiety and long-term Prozac use, presenting for follow-up with improved symptoms on current medication regimen. Anxiety and DepressionAsses sment: Patient reports a recent episode of anxiety approximately 1.5 weeks ago. She demonstrated effective self-management by utilizing coping strategies such as deep breathing and self-talk to calm down. Denies concerns with depression. Current medication regimen appears to be effective in managing symptoms, with the patient expressing gratitude for the improved efficacy compared to previous long-term Effexor use.Plan:- Continue current medication regimen (specific medication and dosage not mentioned)- Encourage ongoing use of coping strategies for anxiety management- Follow-up in 3 months, sooner if concerns arise 01/20/2025 Other Irene Munguia, female, presents with fluctuating mood, anxiety, and concerns about sleep apnea and blood sugar management. Mood Disorder Assessment: Patient reports experiencing mood fluctuations, with some days characterized by low motivation and others by increased irritability. She describes trying to hold it together despite these variations. Current medication regimen includes fluoxetine for depression management. Plan: - Continue fluoxetine 40 mg daily for depression - Follow up in 3 months Anxiety Disorder Assessment: Patient reports ongoing anxiety, with a recent episode of feeling hot and sweaty at the dentist's office, initially attributed to low blood sugar but potentially an anxiety attack. She acknowledges the importance of consistent medication adherence, noting a instance of delayed buspirone dose. Current treatment includes buspirone for anxiety management. Plan: - Continue buspirone 10 mg three times daily for anxiety - Encourage patient to maintain consistent medication schedule - Patient to follow up with therapist Mel as needed for additional support Sleep Apnea Assessment: Patient reports symptoms consistent with sleep apnea, including excessive daytime sleepiness. She mentions not having a CPAP machine and experiencing morning fatigue, often falling asleep after her second cup of coffee. Plan: - Recommend follow up with CPAP machine and nightly use Plan Of Treatment Next Appt Details Provider Name:Mel Delcid, 02/09/2025 02:00:00 PM, [facility], [place] [address], [place], [address], Provider Name:Mel Delcid, 02/22/2025 11:00:00 AM, [facility], [place] [address], [place], [address], Provider Name:Mel Delcid, 03/08/2025 02:00:00 PM, [facility], [place] [address], [place], [address], Insurance Providers Payer Name Payer Address Payer Phone Subscriber Number Group Number Insured Name Patient Relationship to Insured Coverage Start Date Coverage End Date Medicare-I l Medicare [address] [place] [address] [id number] IRENE CHEUNG Self - patient is the insured For Life [address] [place] [address] [id number] LAKEISHA Bess IRENE Self - patient is the insured Medical [...] 9 Surgical History Surgery Date(Month/Year) Cataract surgery (95466) Hysterectomy (01376) Tonsilectomy/adenoids 08/12/1955 Removal of gallbladder (79072) 0
--- OUTSIDE RECORDS SUMMARY | 2025-01-27 11:33 | XMS_ITS | Encounter Summary ---
Author Organization [facility] [employer] Address [address] [place] [address] Care Team Providers Care Maintenance Welder Name Role Phone Axel Price MD Primary Care Provider [phone] Encounter Details Date Type Department Care Team (Late Contact Info) Description 08/10/2022 Telephone [facility] Oncology and [facility] [address] [place] [address] Jaylen Chapin MD [address] [place] [phone] Social History Tobacco Use Types Packs/Day [...] Coronavirus/COVID-19? 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 documented as of this encounter Plan of Treatment Upcoming Encounters Date Type Department Care Team (Late Contact Info) Description 01/29/2025 11:00 AM CDT Office Visit [facility] Oncology and Hematology [facility] [address] [place] [address] Jason Buckley MD [address] [facility] [address] [place] [phone] Scheduled Orders Name Type Priority Associated Diagnoses Orde r Schedule CBC WITH DIFFERENTIAL Lab Routine Iron deficiency anemia secondary to inadequate dietary iron intake Expected: 08/10/2022, Expires: 08/10/2023 documented as of this encounter Visit Diagnoses Diagnosis Iron deficiency anemia secondary to inadequate dietary iron intake- Primary documented in this encounter Care Teams Maintenance Welder Relationship Specialty Start Date End Date Axel Price MD [address] [facility] [address] [place] [address] PCP - General Family Practice 12/19/17 documented as of this encounter
--- OUTSIDE RECORDS SUMMARY | 2025-01-27 11:33 | XMS_ITS ---
Author Organization [facility] Address [address] [place], [place] [id number] Care Team Providers Care Gauge Inspector Name Role Phone RENETTA RIVERO Unavailable [phone] Axel Price Unavailable Unavailable REASON FOR VISIT *General care [facility] Encounters Encounter Location Date Provider Diagnosis [facility] [place] [address] [place], [place] [id number] 01/25/2025 ERNETTA RIVERO Plan Of Treatment No Information Progress Notes * Matthew MUNGUIAB:[birth year] (74 yo F)Acc No.[id number]:01/25/2025 Patient: Ce YAN Provider: Jenniffer Rievro DPM :1950 A ge:74 Y S ex:Female Date:01/25/2025 Address:[facility] [address] Subjective: * Chief Complaints: * 1 . *General care [facility]. * Medical History: Objective: * Vitals: Assessment: Plan: * Treatment: * Billing Information: * Visit Code: * Procedure Codes: * Electronic signature of RENETTA RIVERO DPM on 01/27/2025 at 11:33 AM CDT Sign off status: Pending * Provider: Jenniffer Rivero DPM Date: 01/25/2025 Generated for Printi ng/Faxing/eTransmitting on: 01/27/2025 11:33 AM CDT
--- OUTSIDE RECORDS SUMMARY | 2025-01-27 11:33 | XMS_ITS | Patient Health Record ---
Author Organization [facility] Address [address] [place], [place] [address] Care Team Providers Care Dehydration Plant Operator Name Role Phone RENETTA RIVERO Unavailable [phone] Axel Price Unavailable Unavailable ARCHIE REDD Unavailable [phone] Allergies Allergen (clinical drug ingredient) Drug/Non Drug Allergy documented on EMR Reaction Allergy Type Onset Date Status paroxetine Paxil Unknown Drug Allergy Active Wellbutrin Unknown Drug Allergy Active lisinopril Lisinopril Unknown Drug Allergy Activ e Reason For Referral No Information Vital Signs Height-cm 167.64 cm 11/09/2024 Weight-kg 74.39 kg 11/09/2024 Height 66 in 11/09/2024 Weight 164 lbs 11/09/2024 BMI 26.47 kg/m2 11/09/2024 Encounters Encounter Location Date Provider Diagnosis [address] [id number] 03/19/2024 ARCHIE REDD Other hammer toe(s) (acquired), right foot M20.41 ; Tinea unguium B35.1 ; Other hammer toe(s) (acquired), left foot M20.42 ; Pain in left toe(s) M79.675 ; Pain in right toe(s) M79.674 ; Unspecified atherosclerosis of [place] arteries of extremities, bilateral legs I70.203 and Type 2 diabetes mellitus with diabetic peripheral angiopathy without gangrene E11.51 [facility] [place] [address] [place], [place] [id number] 05/25/2024 RENETTA SNOOK Tinea unguium B35.1 ; Pain in right foot M79.671 ; Pain in left foot M79.672 ; Atherosclerosis of [place] arteries of extremities with intermittent claudication, bilateral legs I70.213 and Acquired keratosis [keratoderma] palmaris et plantaris L85.1 [facility] [place] [address] [place] [id number] 09/07/2024 RENETTA SNOOK Tinea unguium B35.1 ; Pain in right foot M79.671 ; Pain in left foot M79.672 ; Atherosclerosis of [place] arteries of extremities with intermittent claudication, bilateral legs I70.213 and Acquired keratosis [keratoderma] palmaris et plantaris L85.1 [facility] [place] [address] [address] [place] [id number] 11/09/2024 RENETTA SNOOK Tinea unguium B35.1 ; Pain in right foot M79.671 ; Pain in left foot M79.672 ; Atherosclerosis of [place] arteries of extremities with intermittent claudication, bilateral legs I70.213 and Acquired keratosis [keratoderma] palmaris et plantaris L85.1 Assessments Encounter Date Diagnosis (ICD Code) Assessment Notes Treatment Notes Treatment Clinical Notes Section Notes 03/19/2024 Tinea unguium (ICD-10 - B35.1) Aseptic [...] Pain in right foot (ICD-10 - M79.671) 11/09/2024 Tinea unguium (ICD-10 - B35.1) Nails 4 and 5 Bilateral were debrided extensively with nail nippers and emery board, reducing length and girth to pink healthy tissue with any subungual debris and necrotic tissue removed 11/09/2024 Pain in right foot (ICD-10 - M79.671) 11/09/2024 Pain in left foot (ICD-10 - M79.672) 09/07/2024 Pain in left foot (ICD-10 - M79.672) 05/25/2024 Pain in left foot (ICD-10 - M79.672) 03/19/2024 Other hammer toe(s) (acquired), left foot (ICD-10 - M20.42) 09/07/2024 Atherosclerosis of [place] arteries of extremities with intermittent claudication, bilateral legs (ICD-10 - I70.213) 05/25/2024 Atherosclerosis of [place] arteries of extremities with intermittent claudication, bilateral legs (ICD-10 - I70.213) 03/19/2024 Pain in left toe(s) (ICD-10 - M79.675) 11/09/2024 Atherosclerosis of [place] arteries of extremities with intermittent claudication, bilateral legs (ICD-10 - I70.213) 11/09/2024 Acquired keratosis [keratoderma] palmaris et plantaris (ICD-10 - L85.1) A total of 3 corns or calluses, as described in the note above, were cut and pared utilizing a #15 blade 05/25/2024 Acquired keratosis [keratoderma] palmaris et plantaris (ICD-10 - L85.1) A total of 3 corns or calluses, as described in the note above, were cut and pared utilizing a #15 blade 09/07/2024 Acquired keratosis [keratoderma] palmaris et plantaris (ICD-10 - L85.1) A total of 3 corns or calluses, as described in the note above, were cut and pared utilizing a #15 blade 03/19/2024 Pain in right toe(s) (ICD-10 - M79.674) 03/19/2024 Unspecified atherosclerosis of [place] arteries of extremities, bilateral legs (ICD-10 - [...] to nausea, vomiting, fever. Plan Of Treatment No Information Insurance Providers Payer Name Payer Address Payer Phone Subscriber Number Group Number Insured Name Patient Relationship to Insured Coverage Start Date Coverage End Date Medicare Part B [facility] [address] [place] [address] [id number] Ce Lewis Self - patient is the insured for Life (All Regions) [address] [place], [place] [id number] Ce Lewis Self - patient is the insured Medical (General) History Medical History History ICD Code acid reflux stroke Cancer (Kidney) anemia Open Sores Arthritis Sleep apnea Diabetic Heart Disease depression hypertension Abnormal Bleeding
[2025-01-27 11:56] LABS: Folic Acid > 20.0 ng/mL (2.76->20); Vitamin B12 > 1000.0 pg/mL (239-931)
== END 2025-01-27 10:11 | disposition home or self-care (01) ==
LOC: CHSLAB 10:13
PROVIDERS: PCP Family Medicine; Visit Provider Internal Medicine Hematology & Oncology
DX: D64.9 Anemia, unspecified (principal)
CPT/HCPCS: 36415; 80048; 82607; 82728; 82746; 83540; 83550; 85027

== ENCOUNTER 2025-02-09 17:47 | Emergency (ER) | payer MEDICARE, OTHER, SELFPAY ==
[2025-02-09 17:50] VITALS: BP 167/73; PULSE 78; RESP 20; TEMP 36.2; O2SAT 96
--- NOTE | 2025-02-09 18:01 | ECG_ITS ---
Test Date: 2025-02-09 18:53:57 Measurements Intervals [place] Rate: 71 P: 71 [place]: 198 QRS: -17 QRSD: 90 T: 4 QT: 419 QTc: 456 Interpretive Statements SINUS RHYTHM MINIMAL VOLTAGE CRITERIA FOR LVH, CONSIDER NORMAL VARIANT [MEETS CRITERIA IN ONE OF: R(aVL), S(V1), R(V5), R(V5/V6)+S(V1)] SEPTAL MYOCARDIAL INFARCTION , OLD [40+ ms Q WAVE IN V1/V2] ABNORMAL ECG No previous ECG available for comparison Electronically Signed On 02-10-2025 12:33:00 CDT by Anthony Yang M.D.
[2025-02-09 18:57] LABS: Hematocrit 46.0 % (37.0-47.0); Hemoglobin 14.7 g/dL (12.0-15.0); Immature Granulocyte Percent A 0.7 % (0-0.5); Lymphocytes Absolute Auto 1.25 K/mm3 (0.9-3.2); Mean Corpuscular HGB Conc 32.0 g/dl (32-36); Mean Corpuscular Hemoglobin 27.6 pg (26-34); Mean Corpuscular Volume 86.3 fl (80-100); Nucleated Red Blood Cells Absolute Auto 0.000 K/mm3 (0.0-0.012); Nucleated Red Blood Cells Perc 0.0 % (0.0-0.2); Platelet Count Result 227 k/mm3 (150-375); Red Blood Count 5.33 M/mm3 (4.2-5.4); White Blood Count 13.7 K/mm3 (4.5-10.0)
[2025-02-09 19:14] VITALS: BP 119/54; PULSE 76; RESP 20; O2SAT 96
[2025-02-09 19:21] LABS: Alanine Aminotransferase 17 U/L (6-35); Albumin Level 4.5 g/dL (3.5-5.1); Alkaline Phosphatase 58 U/L (38-126); Anion Gap 12 mmol/L (4-12); Aspartate Amino Transferase 33 U/L (14-36); Bilirubin,Total 0.5 mg/dL (0.2-1.3); Blood Urea Nitrogen 22 mg/dL (7-17); Calcium 9.5 mg/dL (8.4-10.2); Carbon Dioxide 29 mmol/L (22-30); Chloride 97 mmol/L (98-107); Estimated CRCL calculation 34 ml/min; Estimated Glomerular Filt Rate 43; Glucose 280 mg/dL (65-110); Potassium 3.7 mmol/L (3.4-5.0); Sodium 138 mmol/L (137-145); Total Protein 8.2 g/dL (6.3-8.2)
--- NOTE | 2025-02-09 19:45 | ED.DIZZY ---
HPI - Dizziness General Chief Complaint: Dizziness Stated Complaint: not feeling well Time Seen by Provider: 02/09/25 17:58 History of Present Illness HPI Narrative: 74-year-old female with history of insulin-dependent diabetes, hypertension, chronic anemia. She presents to the emergency department after having episode of hypoglycemia while shopping. She states she knew her body was going low in sugar and she felt hypoglycemic while she was shopping so she took 3 glucose drinks and then had some diarrhea shortly afterwards. She states she normally gets diarrhea after having these sugar drinks and this was normal but proceeding them she was not feeling well with low blood sugars and diaphoresis that have since resolved. She presents via EMS. She states that she is asymptomatic at this time wishing to go home. Denies any symptoms such as nauseousness, vomiting, abdominal pain, fever, chills, chest pain or difficulty breathing. Related Data Home Medications ?Medication ?Instructions ?Recorded ?Confirmed ?Last Taken ?Type ferrous sulfate 325 mg (65 mg 325 mg PO BID 06/22/19 12/14/24 12/05/21 History iron) tablet ascorbic acid (vitamin C) 1,000 mg 1 g PO DAILY 08/28/22 12/14/24 Unknown History capsule calcium carbonate-vitamin D3 600 1 tablet PO DAILY 08/28/22 12/14/24 Unknown History mg-125 unit tablet latanoprost 0.005 % eye drops 1 drp EACH EYE QAM 08/28/22 12/14/24 Unknown History insulin glargine 100 unit/mL (3 35 unit subcut BID 04/05/23 12/14/24 Unknown History mL) subcutaneous pen (Lantus Solostar U-100 Insulin) biotin 5 mg capsule 5 mg PO DAILY 10/28/24 12/14/24 Unknown History Allergies Allergy/AdvReac Type Severity Reaction Status Date / Time lisinopril Allergy Severe TONGUE Verified 11/23/24 08:28 Swelling oxybutynin Allergy Severe PROBLEMS Verified 11/23/24 08:28 BREATHING fexofenadine Allergy Mild UPPER RESP Verified 11/23/24 08:28 INFECTION paroxetine Allergy Unknown NIGHT Verified 11/23/24 08:28 SWEATS bupropion AdvReac Unknown Nervousness Verified 11/23/24 08:28 tizanidine AdvReac Unknown blurred Verified 11/23/24 08:28 vision [facility] Past Medical History Medical History (Updated 02/09/25 @ 19:51 by Harris Martini MD) Osteopenia Chronic low back pain Renal cell carcinoma Status post partial bilateral nephrectomy. Nonalcoholic fatty liver disease Obstructive sleep apnea Intolerant to CPAP. Insulin dependent type 2 diabetes mellitus Cerebrovascular accident Presenting with expressive aphasia which has essentially resolved. Chronic kidney disease, stage 3 Osteomyelitis of great toe of left foot Anxiety Vitamin B12 deficiency Chronic venous stasis dermatitis of both lower extremities Major depressive disorder, single episode, unspecified Right femoral fracture ORIF Kidney malignant neoplasm Diverticulosis Dyslipidemia Anemia Hypertension Surgical History Surgical History (Updated 11/23/24 @ 08:36 by Mel Chacko MA) History of general surgical procedure 11/03/24 Exploration abdominal skin and subcutaneous for foreign body Dr. Ozuna History of tonsillectomy History of total abdominal hysterectomy Status post insertion of spinal cord stimulator With pain pump for chronic low back pain. History of bilateral salpingo-oophorectomy (12/2008) History of partial nephrectomy (2007) Bilateral partial nephrectomy for renal cell carcinoma done at [facility]. History of elbow surgery Cubital tunnel release. History of cholecystectomy History of open reduction and internal fixation (ORIF) procedure Right hip fracture. History of arthroplasty of right shoulder History of cataract extraction History of carpal tunnel release History of laparotomy (12/2008) Diagnostic laparotomy with extensive adhesiolysis and bilateral salpingo-oophorectomy History of total right hip arthroplasty Family History Family History Father Family history of heart disease in male family member before age 55 Family history of coronary artery disease Cerebrovascular accident Sibling Family history of coronary artery disease Mother Family history of obesity Grandparent Diabetes mellitus Grandparent Family history of glaucoma Other Depression Family history of cardiovascular disease Hypertension Social History Social History Social History: . Retired. Daughter and son live with her in [place]. Smokes 1 pack of the day for 44 quit in 2004. Surrogate decision maker: Children or sister. CODE STATUS: Full code. Smoking packs per day: 1 Smoking cigarettes per day: 20.0 Years smoked: 10 Smoking pack-years: 10.00 Smoking status: Former smoker Tobacco type: cigarettes Second hand tobacco smoke exposure: No Smoking end date: 01/01/05 Additional smoking assessment comments: QUIT 2004 Alcohol intake: never Substance use: never Substance use type: does not use Do You Feel Safe in your Home?: Yes Lack of Transportation: No Lack of Food: Never True Current Housing: I Have Housing Concerned About Future Housing: No Difficulty Paying Gas/Electric Bills: No Difficulty Paying for Meds: No Currently Unemployed: No Education: High School Diploma/GED Difficulty w/ Childcare or Family Care: No Living arrangements: with family Additional living arrangements comments: [place] [facility] WITH PT Occupation/Education: retired Spiritual care concerns: No Course Vital Signs Vital signs: Vital Signs Temperature 36.2 C L 02/09/25 17:50 Pulse Rate 78 02/09/25 17:50 Respiratory Rate 20 02/09/25 17:50 Blood Pressure 167/73 H 02/09/25 17:50 Pulse Oximetry 96 02/09/25 17:50 Temperature 36.2 C L 02/09/25 17:50 Pulse Rate 74 02/09/25 21:33 Respiratory Rate 18 02/09/25 21:33 Blood Pressure 127/52 L 02/09/25 21:33 Pulse Oximetry 96 02/09/25 21:33 MDM - Dizziness MDM Narrative Medical decision making narrative: 74-year-old female with history of insulin-dependent diabetes, hypertension, chronic anemia. She presents to the emergency department after having episode of hypoglycemia while shopping. She states she knew her body was going low in sugar and she felt hypoglycemic while she was shopping so she took 3 glucose drinks and then had some diarrhea shortly afterwards. She states she normally gets diarrhea after having these sugar drinks and this was normal but proceeding them she was not feeling well with low blood sugars and diaphoresis that have since resolved. She presents via EMS. She states that she is asymptomatic at this time wishing to go home. Denies any symptoms such as nauseousness, vomiting, abdominal pain, fever, chills, chest pain or difficulty breathing. Patient likely had a focal hypoglycemia episode that was corrected with her drinks however she took 3 of them when she normally takes 1 so she is slightly hyperglycemic at this time and does have some resultant diarrhea which is normal for her after her glucose drink shots according to the patient. Patient is hemodynamically stable with normal vital signs no tachycardia, fever, hypoxia. No abdominal pain, chest pain, shortness a breath. She was given a fluid bolus and Blood work was obtained as well as an EKG given patient's historical features and make sure there is no other potential causes such as electrolyte derangements, dehydration, cardiac issue. Labs show some slight leukocytosis of 13.7 likely reactive rather than infectious. Patient is not having fever or infectious symptoms at this time. Normal hemoglobin, normal platelets. Electrolytes are unremarkable, creatinine on her baseline CKD. Glucose mildly elevated to 180 secondary to the glucose strength she ingested but she is asymptomatic at this time. Normal LFTs. Patient remains asymptomatic and expressing desire for discharge, she can be safely discharged with outpatient follow-up. Son at bedside felt comfortable with this plan and will have her follow-up with her doctor or return with any emergent concerns. Medical Records Attestation: I reviewed the patient's medical records. Lab Data Attestation: I reviewed the patient's lab results. 02/09/25 18:52 02/09/25 18:52 Labs: Lab Results 02/09/25 02/09/25 Range/Units 18:52 19:16 WBC 13.7 H (4.5-10.0) K/mm3 RBC 5.33 (4.2-5.4) M/mm3 Hgb 14.7 (12.0-15.0) g/dL Hct 46.0 (37.0-47.0) % MCV 86.3 (80-100) fl MCH 27.6 (26-34) pg MCHC 32.0 (32-36) g/dl RDW 13.5 (11.5-14.5) % Plt Count 227 (150-375) k/mm3 MPV 10.8 H (7.4-10.4) fl Immature Gran % (Auto) 0.7 H (0-0.5) % Neut % (Auto) 82.6 H (45.5-73.1) % Lymph % (Auto) 9.1 L (18.3-44.2) % Person % (Auto) 5.0 (2.6-8.5) % Eos % (Auto) 2.0 (0-4.4) % Baso % (Auto) 0.6 (0.2-1.2) % Lymph # (Auto) 1.25 (0.9-3.2) K/mm3 Person # (Auto) 0.7 H (0.1-0.6) K/mm3 Eos # (Auto) 0.3 (0-0.3) K/mm3 Baso # (Auto) 0.1 (0.0-0.1) K/mm3 Abs Immat Gran (auto) 0.10 H (0.00-0.031) K/mm3 Absolute Neuts (auto) 11.3 H (1.3-6.7) K/mm3 Absolute Nucleated RBC 0.000 (0.0-0.012) K/mm3 Nucleated RBC % 0.0 (0.0-0.2) % Sodium 138 (137-145) mmol/L Potassium 3.7 (3.4-5.0) mmol/L Chloride 97 L (98-107) mmol/L Carbon Dioxide 29 (22-30) mmol/L Anion Gap 12 (4-12) mmol/L BUN 22 H (7-17) mg/dL Creatinine 1.21 H (0.7-1.0) mg/dL Estim Creat Clear Calc 34 ml/min Estimated GFR 43 L (59 - ) Glucose 280 H (65-110) mg/dL POC Capillary Glucose 310 H (65-105) mg/dl Calcium 9.5 (8.4-10.2) mg/dL Total Bilirubin 0.5 (0.2-1.3) mg/dL AST 33 (14-36) U/L ALT 17 (6-35) U/L Alkaline Phosphatase 58 (38-126) U/L Total Protein 8.2 (6.3-8.2) g/dL Albumin 4.5 (3.5-5.1) g/dL Discharge Plan Discharge Clinical Impression: Hypoglycemic episode in patient with diabetes mellitus, Chronic kidney disease Patient Disposition: Home Condition: Stable Instructions: Antibiotic Form Additional Instructions: You had a episode of hypoglycemia that you corrected by herself outside the hospital, sugars did rise secondary to this and we have given you some fluids here in the emergency department. Follow-up with your doctor going to close outpatient basis to discuss insulin regimen and Jardiance management. Return with any new or worsening concerns at any time Patient Language: Australian Prescriptions: No Action Jardiance 10 mg tablet 10 mg PO DAILY Qty: 90 2RF insulin glargine [Lantus Solostar U-100 Insulin] 100 unit/mL (3 mL) insulin pen 35 unit SUBCUT BID Patient Comments: TAKE 40 UNITS BID buspirone 5 mg tablet 5 mg PO TID PRN (Reason: Anxiety) Qty: 90 0RF Patient Comments: TAKES 10 MG TID latanoprost 0.005 % drops 1 drp EACH EYE QAM Patient Comments: TAKES AT HS calcium carbonate-vitamin D3 600-125 mg-unit Tablet 1 tablet PO DAILY ascorbic acid (vitamin C) 1,000 mg Capsule 1 g PO DAILY biotin 5 mg capsule 5 mg PO DAILY ferrous sulfate 325 mg (65 mg iron) tablet 325 mg PO BID aspirin 81 mg tablet,delayed release (DR/EC) 81 mg PO BID Qty: 180 2RF fluoxetine 40 mg capsule 40 mg PO DAILY Qty: 90 2RF mecobalamin (vitamin B12) 1,000 mcg tablet,chewable 1,000 mcg PO DAILY Qty: 90 2RF prochlorperazine maleate [Compazine] 5 mg tablet 5 mg PO Q8H PRN (Reason: nausea and vomiting) Qty: 20 0RF Silver-Sept 200 mcg/gram gel 1 applic topical DAILY Qty: 60 0RF Patient Comments: PRN Rx Instructions: Apply to area of concern daily or as instructed metoprolol succinate 50 mg tablet extended release 24 hr See Rx Instructions .ROUTE .COMPLEX Qty: 90 2RF Dose Instruction: TAKE ONE TABLET BY MOUTH DAILY Rx Instructions: TAKE ONE TABLET BY MOUTH DAILY atorvastatin 20 mg tablet 20 mg PO HS Qty: 90 2RF docusate sodium 100 mg tablet 100 mg PO BID PRN (Reason: Constipation) Qty: 60 0RF mirabegron [Myrbetriq] 50 mg tablet extended release 24 hr 50 mg PO DAILY Qty: 90 2RF omega-3 acid ethyl esters [Lovaza] 1 gram capsule 1 cap PO BID Qty: 180 2RF pantoprazole [Protonix] 40 mg tablet,delayed release (DR/EC) 40 mg PO QAM Qty: 90 2RF cyclobenzaprine 5 mg tablet 5 mg PO QHS PRN (Reason: muscle spasm) Qty: 90 0RF hydrochlorothiazide 25 mg tablet 25 mg PO DAILY Qty: 90 2RF loratadine 10 mg tablet 10 mg PO DAILY Qty: 90 2RF valsartan [Diovan] 40 mg tablet 40 mg PO BID Qty: 180 2RF Follow-up/Referrals: Axel Price MD [Primary Care Provider] - Time of Disposition: 19:50
[2025-02-09] MEDS: LACTATED RINGERS 1,000 ML 999 ML IV CONT (19:52)
--- OUTSIDE RECORDS SUMMARY | 2025-02-09 20:01 | XMS_ITS | Encounter Summary ---
Author Organization [facility] [employer] Address [address] [place] [address] Care Team Providers Care Ironworker Apprentice Name Role Phone Axel Price MD Primary Care Provider [phone] Encounter Details Date Type Department Care Team (Late Contact Info) Description 08/10/2022 Telephone [facility] Oncology and Hematology [facility] [place] [place] [address] [place] [address] Jaylen Chapin MD [address] [place] [phone] Social History Tobacco Use Types Packs/Day [...] Coronavirus/COVID-19? No / Unsure 08/10/2022 10:38 AM RESIDENTIAL TREATMENT SPECIALIST documented as of this encounter Plan of Treatment Upcoming Encounters Date Type Department Care Team (Late Contact Info) Description 07/28/2025 11:45 AM RESIDENTIAL TREATMENT SPECIALIST Office Visit [facility] Oncology and Hematology [facility] [place] [place] [address] [place] [address] Jason Buckley MD [address] [facility] [address] [place] [address] Scheduled Orders Name Type Priority Associated Diagnoses Orde r Schedule CBC WITH DIFFERENTIAL Lab Routine Iron deficiency anemia secondary to inadequate dietary iron intake Expected: 08/10/2022, Expires: 08/10/2023 documented as of this encounter Visit Diagnoses Diagnosis Iron deficiency anemia secondary to inadequate dietary iron intake- Primary documented in this encounter Care Teams Ironworker Apprentice Relationship Specialty Start Date End Date Axel Price MD [address] [facility] [address] [place] [address] PCP - General Family Practice 12/19/17 documented as of this encounter
--- OUTSIDE RECORDS SUMMARY | 2025-02-09 20:01 | XMS_ITS | Referral Summary ---
Author Organization [facility] Address [address] [place] [address] Care Team Providers Care Acid Strength Inspector Name Role Phone Axel Price MD Primary Care Provider Encounters Date Type Department Care Team Description 11/11/2024 Telephone [facility] Endocrinology Metabolism and Lipid [address] [facility] 5[address] [place] [address] [place] [address] Dago Garza RN from Last 3 Months [...] every 6 hours as needed Active marlin yru-ucw-A4-Zn-co p-man-bor 250-40-125 mg-mg-unit tablet Take by mouth. [...] by mouth 3 times daily Active omega 0-bel-jqr-fish oil (OMEGA-3) 350 mg-235 mg- 90 mg-597 [...] 3 3 Active blood-glucose meter,continuous (Dexcom G6 Wound Treatment Rn) misc Use as directed 1 each 3 Active blood-glucose meter,continuous (Dexcom G7 Wound Treatment Rn) miscIndications: Type 2 diabetes mellitus with diabetic [...] (06/03/2020): Added automatically from request for surgery [id number] Subclinical hypothyroidism 07/08/2018 Assessment & Plan (07/08/2018 3:12 PM FELT FINISHING SUPERVISOR): Clinically euthyroid w/o treatment and last TSH normal 3.28 and may be age related elevation previously. -monitor with period TFT Mixed hyperlipidemia 07/08/2018 Assessment & Plan (07/08/2018 3:13 PM FELT FINISHING SUPERVISOR): LDL 57 excellent control on lipitor TG at goal 12/2017 on lovaza 4g Iron deficiency anemia 07/08/2018 Assessment & Plan (07/08/2018 3:13 PM FELT FINISHING SUPERVISOR): Pt has been evaluated by hematology and appropriate work up performed HTN (hypertension), benign 12/19/2017 Major depression 12/19/2017 Spinal stenosis 12/19/2017 Type 2 diabetes mellitus wit h neurologic complication, with long-term current use of insulin 02/15/2015 Assessment & Plan (07/08/2018 3:12 PM FELT FINISHING SUPERVISOR): Controlled A1c 7.4, but may be [...] on file Legal Sex Female 2:40 AM FELT FINISHING SUPERVISOR Gender Identity Not on file Sexual Orientation Not on file Last Filed Vital Signs Vital Sign Reading Time Taken Comments Blood Pressure 111/49 10/27/2024 1:25 PM CDT Pulse 62 10/27/2024 1:25 PM CDT Temperature 36.8 C (98.2 F) 10/27/2024 1:25 PM CDT Respiratory Rate 18 06/25/2020 7:55 AM FELT FINISHING SUPERVISOR Oxygen Saturation 94% 06/25/2020 7:55 AM FELT FINISHING SUPERVISOR Inhaled Oxygen Concentration - - Weight 77.1 kg (170 lb) 10/27/2024 1:25 PM CDT Height 168.4 cm (5' 6.3) 10/27/2024 1:25 PM CDT Body Mass Index 27.19 10/27/2024 1:25 PM CDT Plan of Treatment Not on file Medical Devices Implanted Type Area Hospice Social Worker Device Identifier Shelf Expiration Date Model / Serial / Lot Medtronic Neuro 8637-20 Synchromed Ii .78in Williams Filter Mesh Pouch Programmable - [id number] - [id number] Implanted:Qty: 1 on 06/24/2020 by Sabrina Whiting MD at [facility] [employer] 11/23/2021 8637 -20 / [id number] / Procedures Procedure Name Priority Date/Time Associated [...] et al. RENETTA Cardiol. 2020;5(5):540-548 or Krishna REBOLLAR et al. RENETTA Cardiol. 2018;3(8):749-753. Consider the use of non-HDL-c to estimate atherosclerotic cardiovascular disease risk. The Friedewald equation is accurate in most patients when triglycerides are less than 150 mg/dL. Consider the use of non-HDL-C or Apo B to help estimate atherosclerotic cardiovascular diesase risk if triglycerides are elevated. Blood 03/12/2023 2:05 PM CDT 03/12/2023 3:33 PM CDT Narrative [facility] - 03/12/2023 4:19 PM CDT Current interpretive data was last updated July 14, 2021. For adults ages 40-79, the ACC/AHA recommends discussing your 10-year atherosclerotic cardiovascular disease risk with your health care provider. [email or web address].org/ASCVDApp us Urbano Childers MD LAB BLOOD ORDERABLES Final Resu lt [facility] [place] [facility] [...] LAB BLOOD ORDERABLES Final Resu lt [facility] [place] [facility] from Last 3 Months or Most Recently Relevant to Health Maintenance Insurance MEDICARE [employer] MEDICARE FOR LIFE Advance Directives For more information, please contact: [phone] * Full Code (Latest Code Status on File) Date Activated Date Inactivated Comments 06/24/2020 4:31 PM 06/25/2020 3:40 PM Care Teams Acid Strength Inspector Relationship Specialty Start Date End Date Axel Price MD [address] [address] [facility] - General 02/05/17
--- OUTSIDE RECORDS SUMMARY | 2025-02-09 20:01 | XMS_ITS | Clinical Summary ---
Author Organization [facility] Address [address] [place] [address] Care Team Providers Care Rn Psychiatric Name Role Phone Unavailable Primary Care Provider Unavailabl e Social History Tobacco Use Types Packs/Day Years Used Date Smoking Tobacco: Never Assessed Comments Unknown Sex and Gender Information Value Date Recorded Sex Assigned at Not on file Legal Sex Female 11:26 PM FERRY TERMINAL AGENT Gender Identity Not on file Sexual Orientation Not on file Plan of Treatment Health Maintenance Due Date Last Done Comments Colorectal Cancer Screening Colonoscopy (10 Years) 1950 Hepatitis C 1968 DTaP, Tdap and Td Vaccines ( 1 - Tdap) 1969 Mammogram Screening 1990 Pneumococcal Vaccine: 50+ Ye ars (1 of 1 - PCV) 2000 Zoster Vaccines (1 of 2) 2000 Dexa Scan (General) 2015 COVID-19 Vaccine (2023-2 5 season) 2024 RSV Immunization or 60+ Years (1 [...]
--- OUTSIDE RECORDS SUMMARY | 2025-02-09 20:01 | XMS_ITS | Clinical Summary ---
Author Organization [facility] Address [address] [place] [address] Care Team Providers Care Thread Weaver Name Role Phone Axel Price MD Primary [...] every 6 hours as needed Active marlin wyt-tzj-W0-Zn-co p-man-bor 250-40-125 mg-mg-unit tablet Take by mouth. [...] by mouth 3 times daily Active omega 1-kan-epe-fish oil (OMEGA-3) 350 mg-235 mg- 90 mg-597 [...] 3 3 Active blood-glucose meter,continuous (Dexcom G6 Java Security Architect) misc Use as directed 1 each 3 Active blood-glucose meter,continuous (Dexcom G7 Java Security Architect) miscIndications: Type 2 diabetes mellitus with diabetic polyneuropathy, with long-term current use of insulin ([facility]) Please use receivers to monitor blood glucose levels continuously. 1 each 3 Active blood-glucose sensor (Dexcom G7 Sensor) deviceIndication s:Type 2 diabetes mellitus with diabetic polyneuropathy, with long-term current use of insulin ([facility]) Will use 3 sensors per month to check blood sugar continuously. 3 each 4 Active LANTUS 100 unit/mL (3 mL) pen for injectionIndicat ions:Type 2 diabetes mellitus with diabetic polyneuropathy, with long-term current use of insulin ([facility]) Inject 55 units under the skin twice [...] polyneuropathy, with long-term current use of insulin ([facility]) Use to check blood glucose levels 3 times daily. 300 each 3 5 Active pen needle, diabetic (Unifine Pentips) 32 gauge x 5/32 needleIndication s:Type 2 diabetes mellitus with diabetic polyneuropathy, with long-term current use of insulin ([facility]) Use twice daily with insulin pen 200 each 3 5 Active Active Problems Problem Noted Date Diagnosed Date Chronic pain syndrome 06/03/2020 Overview (06/03/2020): Added automatically from request for surgery [id number] Subclinical hypothyroidism 07/08/2018 Assessment & Plan (07/08/2018 3:12 PM HOME HEALTH AIDE CAREGIVER): Clinically euthyroid w/o treatment and last TSH normal 3.28 and may be age related elevation previously. -monitor with period TFT Mixed hyperlipidemia 07/08/2018 Assessment & Plan (07/08/2018 3:13 PM HOME HEALTH AIDE CAREGIVER): LDL 57 excellent control on lipitor TG at goal 12/2017 on lovaza 4g Iron deficiency anemia 07/08/2018 Assessment & Plan (07/08/2018 3:13 PM HOME HEALTH AIDE CAREGIVER): Pt has been evaluated by hematology and appropriate work up performed HTN (hypertension), benign 12/19/2017 Major depression 12/19/2017 Spinal stenosis 12/19/2017 Type 2 diabetes mellitus wit h neurologic complication, with long-term current use of insulin 02/15/2015 Assessment & Plan (07/08/2018 3:12 PM HOME HEALTH AIDE CAREGIVER): Controlled A1c 7.4, but may be discrepant [...] Type Department Care Team Description 11/11/2024 Telephone [facility] Endocrinology Metabolism and Lipid [address] [place] [address] [place] [address] Dago Garza RN from Last 3 Months [...] on file Legal Sex Female 2:40 AM HOME HEALTH AIDE CAREGIVER Gender Identity Not on file Sexual Orientation Not on file Obstetrics History Last Filed Vital Signs Vital Sign Reading Time Taken Comments Blood Pressure 111/49 10/27/2024 1:25 PM CDT Pulse 62 10/27/2024 1:25 PM CDT Temperature 36.8 C (98.2 F) 10/27/2024 1:25 PM CDT Respiratory Rate 18 06/25/2020 7:55 AM HOME HEALTH AIDE CAREGIVER Oxygen Saturation 94% 06/25/2020 7:55 AM HOME HEALTH AIDE CAREGIVER Inhaled Oxygen Concentration - - Weight 77.1 [...] history exists Medical Devices Implanted Type Area Housekeeping Associate Device Identifier Shelf Expiration Date Model / Serial / Lot Medtronic Neuro 8637-20 Synchromed Ii .78in [place] Filter Mesh Pouch Programmable - [id number] - [id number] Implanted:Qty: 1 on 06/24/2020 by Sabrina Whiting MD at [facility] [employer] 11/23/2021 8637 -20 / [id number] / Procedures Procedure Name Priority Date/Time Associated [...] hemoglobin A1c (10/27/2024 1:35 PM CDT) Pathologist [facility] Hemoglobin A1C, POC 9.3 4.0 - 5.6 % Blood 10/27/2024 1:35 PM CDT Aleksander Willis MD POINT OF CARE TEST ORDER ARTEMIO Final Result * (ABNORMAL) Lipid panel (03/12/2023 2:05 PM CDT) Triglycerides 160(H) <150 mg/dL [facility] Comment: Desirable: <150 mg/dL, fasting <175 [...] PM CDT 03/12/2023 3:33 PM CDT Narrative [facility] - 03/12/2023 4:19 PM CDT Current interpretive data was last updated July 14, 2021. For adults ages 40-79, the ACC/AHA recommends discussing your 10-year atherosclerotic cardiovascular disease risk with your health care provider. [email or web address].org/ASCVDApp us Urbano Childers MD LAB BLOOD ORDERABLES Final Resu lt [facility] * [...] Health Maintenance Insurance MEDICARE FOR LIFE MEDICARE [facility] Address: [address] [address] [place] [address] FOR LIFE Advance Directives For more information, please contact: [phone] * Full Code (Latest Code Status on File) Date Activated Date Inactivated Comments 06/24/2020 4:31 PM 06/25/2020 3:40 PM Care Teams Thread Weaver Relationship Specialty Start Date End Date Axel Price MD [address] [facility] [address] [place] [address] PCP - General 02/05/17
--- OUTSIDE RECORDS SUMMARY | 2025-02-09 20:01 | XMS_ITS | Encounter Summary ---
Author Organization [facility] [employer] Address [address] [place] [address] Care Team Providers Care Clutch Inspector Name Role Phone Axel Price MD Primary Care Provider [phone] Encounter Details Date Type Department Care Team (Late Contact Info) Description 02/08/2025 Orders Only [facility] [place] [facility] Oncology and Hematology - [address] [place] [address] Jason Buckley MD [facility] [address] [place] [address] Social History Tobacco Use Types Packs/Day Years [...] (Late Contact Info) Description 07/28/2025 11:45 AM [facility] Office Visit [facility] [place] [facility] Oncology and Hematology - [address] [place] [address] Jason Buckley MD [facility] [address] [place] [address] documented as of this encounter Procedures Procedure Name Priority Date/Time Associated Diagnosis Comments BASIC METABOLIC PANEL Routine 01/27/2025 1:28 PM CDT documented in this encounter Results * BASIC METABOLIC PANEL (01/27/2025 1:28 PM CDT) Blood Jason Buckley MD CHEMISTRY ORDERABLES Final Resu lt documented in this encounter Visit Diagnoses Not on filedocumented in this encounter Care Teams Clutch Inspector Relationship Specialty Start Date End Date Axel Price MD [address] [facility] [address] [place] [address] PCP - General Family Practice 12/19/17 documented as of this encounter
--- OUTSIDE RECORDS SUMMARY | 2025-02-09 20:01 | XMS_ITS | Encounter Summary ---
Author Organization [facility] [employer] Address [address] [place] [address] Care Team Providers Care Crusher Setter Name Role Phone Axel Price MD Primary Care Provider [phone] Encounter Details Date Type Department Care Team (Late Contact Info) Description 02/03/2025 Orders Only [facility] Oncology and Hematology - [address] [place] [address] Jason Buckley MD 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 [address] [place] [address] documented as of this encounter Procedures Procedure Name Priority Date/Time Associated Diagnosis Comments COMPREHENSIVE METABOLIC PANEL Routine 01/27/2025 12:02 PM CDT documented in this encounter Results * COMPREHENSIVE METABOLIC PANEL (01/27/2025 12:02 PM CDT) Blood Jason Buckley MD CHEMISTRY ORDERABLES Final Resu lt documented in this encounter Visit Diagnoses Not on filedocumented in this encounter Care Teams Crusher Setter Relationship Specialty Start Date End Date Axel Price MD [address] [facility] [address] [place] [address] PCP - General Family Practice 12/19/17 documented as of this encounter
--- OUTSIDE RECORDS SUMMARY | 2025-02-09 20:01 | XMS_ITS | Patient Health Record ---
Author Organization [facility] [employer] [facility] Address [address] [place] [address] Care Team Providers Care Embedded Software Development Engineer Name Role Phone Axel Price MD Primary Care Provider UnavailKrissy Clay Unavailable [phone] Mel Delcid Unavailable [phone] Cristiana Hansen Unavailable [phone] Allergies Allergen (clinical drug ingredient) Drug/Non Drug [...] Duration) Notes Start Date End Date Status busPIRone HCl 10 MG 1 tablet Oral 3 time s a day; Duration: 90 days 04/20/2025 Active Pantoprazole Sodium 40 MG Oral 12/17/2023 Active Valsartan 40 MG 1 tablet Orally Twic e a day Active hydroCHLOROthiazide 25 MG Oral 12/17/2023 Active Ferrous Sulfate 325 (65 Fe) MG 1 tablet Orally Three times a Week Active Myrbetriq 50 MG Oral 12/17/2023 Act emely Latanoprost 0.005 % Ophthalmic 12/17/2023 Active FLUoxetine HCl 40 MG 1 capsule Oral Once a day; Duration: 90 days 12/17/2023 Active Jardiance 10 MG Oral 12/17/2023 Act emely Ascorbic Acid 500 MG 1 tablet Orally Onc e a day Active Docusate Sodium 100 MG Oral 12/17/2023 Active Lantus 100 UNIT/ML as directed Subcutaneous Active Loratadine 10 MG Oral 12/17/2023 Ac tive Calcium Carbonate 1250 (500 Ca) MG 1 tablet with food Orally Twice a day Active Vitamin B12 100 MCG as directed Orally Active Metoprolol Succinate ER 50 MG Oral 12/17/2023 Active Aspirin 81 81 MG 1 tablet Orally Once a day Active Atorvastatin Calcium 20 MG Oral 12/17/2023 Active Silver - as directed Externally Active Uklbw-0-exga Ethyl Esters 1 GM Oral 12/17/2023 Active Compazine Active Cyclobenzaprine HCl 5 MG Oral 12/17/2023 Active Immunizations Vaccine Route Administration Date Status Comme nts Pfizer Biontech Covid-19 Vac cine 2nd dose Unknown 07/07/2021 Administered Pfizer Biontech Covid-19 Vac cine 2nd dose Unknown 01/04/2022 Administered Ciera Covid-19 Vaccine Unknown 10/14/2020 Administere d Social History Tobacco Use: Social History Observation [...] Do you have a medical power of project development leader?: No Substance Use Do you or have [...] Do you have a medical power of project development leader?: No Substance Use Do you or have [...] Do you have a medical power of project development leader?: No Substance Use Do you or have [...] Do you have a medical power of project development leader?: No Substance Use Do you or have [...] Do you have a medical power of project development leader?: No Substance Use Do you or have [...] Do you have a medical power of project development leader?: No Substance Use Do you or have [...] Do you have a medical power of project development leader?: No Substance Use Do you or have [...] Do you have a medical power of project development leader?: No Problems Problem Type SNOMED Code ICD Code Onset Dates Problem Status W/U Status Risk Notes Problem Moderate recurrent major depression (95713339) Major depressive disorder, recurrent, moderate (F33.1) Active confirmed Problem Recurrent major depression in remission (29136511) Major depressive disorder, recurrent, in partial remission (F33.41) Active confirmed Problem Generalized anxiety disorder (43089213) Generalized anxiety disorder (F41.1) Active confirmed Problem Primary insomnia (4172870) Primary insomnia (F51.01) 4 Active confirmed Problem Obstructive sleep apnea syndrome (disorder) (90624616) Obstructive sleep apnea (adult) (pediatric) (G47.33) 4 Active confirmed Problem Disturbed family (finding) (794018150) Family discord (Z63.8) Active confirmed Problem Essential hypertension (39891963) Benign essential HTN (I10) Active confirmed Vital Signs Heart Rate 71 /min 01/20/2025 Height-cm 167.64 cm 01/20/2025 Blood pressure diastolic 53 mm Hg 01/20/2025 Weight-kg 76.66 kg 01/20/2025 Height 66.00 in 01/20/2025 Blood pressure systolic 104 mm Hg 01/20/2025 Weight 169 lbs 01/20/2025 BMI 27.27 kg/m2 01/20/2025 Encounters Encounter Location Date Provider Diagnosis [facility] [employer] [address] [address] 03/17/2024 Cristiana Hansen Generalized anxiety disorder F41.1 ; Major depressive disorder, recurrent, mild F33.0 ; Primary insomnia F51.01 ; Obstructive sleep apnea (adult) (pediatric) G47.33 and Iron deficiency anemia, unspecified D50.9 [facility] [employer] [address] 05/19/2024 Mel Hemann Generalized anxiety disorder F41.1 and Major depressive disorder, recurrent, moderate F33.1 [facility] [employer] [address] 06/09/2024 Mel Hemann Major depressive disorder, recurrent, moderate F33.1 and Generalized anxiety disorder F41.1 [facility] [employer] [address] 06/30/2024 Mel Hemann Major depressive disorder, recurrent, moderate F33.1 and Generalized anxiety disorder F41.1 [facility] [employer] [address] 07/15/2024 Krissy Delgado Major depressive disorder, recurrent, moderate F33.1 ; Generalized anxiety disorder F41.1 ; Primary insomnia F51.01 ; Family discord Z63.8 ; Obstructive sleep apnea (adult) (pediatric) G47.33 and Iron deficiency anemia, unspecified D50.9 [place] [address] [address] 07/17/2024 Mel Hemann Major depressive disorder, recurrent, moderate F33.1 and Generalized anxiety disorder F41.[address] [address] 10/20/2024 Mel Hemann Major depressive disorder, recurrent, moderate F33.1 and Generalized anxiety disorder F41.[address] [address] 10/20/2024 Krissy Hagopian Major depressive disorder, recurrent, in partial remission F33.41 ; Generalized anxiety disorder F41.1 ; Benign essential HTN I10 and Encounter for screening for depression Z13.[address] [address] 11/20/2024 Mel Hemann Major depressive disorder, recurrent, moderate F33.1 and Generalized anxiety disorder F41.[address] [address] 12/18/2024 Mel Hemann Major depressive disorder, recurrent, moderate F33.1 and Generalized anxiety disorder F41.[address] [address] 01/20/2025 Krissy Hagopian Major depressive disorder, recurrent, in partial remission F33.41 ; Family discord Z63.8 ; Generalized anxiety disorder F41.1 ; Obstructive sleep apnea (adult) (pediatric) G47.33 ; Encounter for screening for cardiovascular disorders Z13.6 and Negative depression screening Z13.31 [place] [address] [address] 01/22/2025 Mel Hemann Major depressive disorder, recurrent, moderate F33.1 and Generalized anxiety disorder F41.1 [place] [address] [address] 02/09/2025 Mel Hemann Major depressive disorder, recurrent, moderate F33.1 and Generalized anxiety disorder F41.[address] [address] 02/28/2024 Cristiana Hansen [facility], [facility] [address] [place] [address] 02/28/2024 Cristiana Hansen Generalized anxiety disorder F41.1 [facility], [facility] [address] [place] [address] 02/28/2024 Cristiana Hansen [facility], [facility] [address] [place] [address] 03/02/2024 Cristiana Hansen Generalized anxiety disorder F41.1 [facility], [facility] [address] [place] [address] 03/04/2024 Mel Delcid [facility], [facility] [address] [place] [address] 07/17/2024 Krissy Delgado [facility], [place] [address] [place] [address] 10/02/2024 Krissy Delgado Generalized anxiety disorder F41.1 [facility], [place] [address] [place] [address] 12/16/2024 Krissy Delgado Major depressive disorder, recurrent, in partial remission F33.41 Assessments Encounter Date Diagnosis (ICD Code) Assessment Notes Treatment Notes Treatment Clinical Notes Section Notes 03/17/2024 Generalized anxiety disorder (ICD-10 - F41.1) cont buspar 10mg TIDcont prozac 40mg qam cont counseling wants sent to [facility] today doing well currently, no new orders recommend cont counseling f/u in 3 months, earlier if concerns notes:-CKD (stage 3 per note), complicated medical ju-rkrx-qccn opiate therapy, has stopped bzo 03/17/2024 Major depressive disorder, recurrent, mild (ICD-10 - F33.0) better, has intermittent meds, counseling as above 01/20/2025 Family discord (ICD-10 - Z63.8) 11/20/2024 Major depressive disorder, recurrent, moderate (ICD-10 - F33.1) 11/20/2024 Generalized anxiety disorder (ICD-10 - F41.1) 07/15/2024 [...] Follow-up 3 months, sooner if concerns arise 06/09/2024 Major depressive disorder, recurrent, moderate (ICD-10 [...] 10/20/2024 Generalized anxiety disorder (ICD-10 - F41.1) 12/16/2024 Major depressive disorder, recurrent, in partial remission (ICD-10 - F33.41) 12/18/2024 Major depressive disorder, recurrent, moderate (ICD-10 - F33.1) 12/18/2024 Generalized anxiety disorder (ICD-10 - F41.1) 02/09/2025 Major depressive disorder, recurrent, moderate (ICD-10 - F33.1) 02/09/2025 Generalized anxiety disorder (ICD-10 - F41.1) 01/22/2025 Major depressive disorder, recurrent, moderate (ICD-10 - F33.1) 01/22/2025 Generalized anxiety disorder (ICD-10 - F41.1) 01/20/2025 Major depressive disorder, recurrent, in partial remission (ICD-10 - F33.41) 05/19/2024 Major depressive disorder, recurrent, moderate (ICD-10 - F33.1) 05/19/2024 Generalized anxiety disorder (ICD-10 - F41.1) 01/20/2025 Generalized anxiety disorder (ICD-10 - F41.1) 02/28/2024 [...] 3 months, sooner if concerns arise 07/15/2024 Iron deficiency anemia, unspecified (ICD-10 - [...] Negative depression screening (ICD-10 - Z13.31) 07/15/2024 Other referral to the local chapter [...] Treatment Next Appt Details Provider Name:Mel Delcid, 02/22/2025 11:00:00 AM, [address], [place], [address], Provider Name:Mel Delcid, 03/08/2025 02:00:00 PM, [address], [place], [address], Insurance Providers Payer Name Payer Address Payer Phone Subscriber Number Group Number Insured Name Patient Relationship to Insured Coverage Start Date Coverage End Date Medicare-I l Medicare [address] [place] [phone] [id number] IRENE CHEUNG Self - patient is the insured For Life [address] [place] [address] [id number] IRENE CHEUNG Self - patient is the [...] 9 Surgical History Surgery Date(Month/Year) Cataract surgery (06850) Hysterectomy (17159) Tonsilectomy/adenoids 08/12/1955 Removal of gallbladder (73090) 0
--- OUTSIDE RECORDS SUMMARY | 2025-02-09 20:01 | XMS_ITS | Clinical Summary ---
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 Active montelukast (SINGULAIR) 10 mg tablet Take [...] tablet losartan 25 mg tablet Active Insulin [place], Disposable, (Sure Comfort Pen Needle) 31 gauge [...] Encounters Date Type Department Care Team Description 02/08/[address] [facility] Oncology and Hematology - Ricardo [address] [place] [address] Jason Buckley MD 02/03/[address] [facility] Oncology and Hematology - Ricardo [address] [place] [address] Jason Buckley MD 01/29/2025 11:00 AM CDT Office Visit [facility] Oncology and Hematology - Ricardo [address] [place] [address] Jason Buckley MD Chronic anemia (Primary Dx) 01/12/2025 External Device Data STL ABSTRACTION Provider, [...] Smoking Tobacco: Former Cigarettes 1 20 1 985 - 2005 Smokeless Tobacco: Never Tobacco Cessation:Counseling Given: Not [...] Sign Reading Time Taken Comments Blood Pressure 100/58 01/29/2025 10:52 AM CDT Pulse 97 01/29/2025 10:52 AM CDT Temperature 36.6 C (97.8 F) 01/29/2025 10:52 AM CDT Respiratory Rate 15 01/29/2025 10:52 AM CDT Oxygen Saturation 93% 01/29/2025 10:52 AM CDT Inhaled Oxygen Concentration - - Weight 76.3 kg (168 lb 3.2 oz) 01/29/2025 10:52 AM CDT Height 165.1 cm (5' 5) 05/02/2021 1:36 PM CDT Body Mass Index 27.99 05/02/2021 1:36 PM CDT Plan of Treatment Upcoming Encounters Date Type Department Care Team (Late st Contact Info) Description 07/28/2025 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 Oncology and Hematology [facility] [address] [facility] [address] [place] [address] Jason Buckley MD [address] [facility] [address] [place] [address] Health Maintenance Due Date Last [...] EXAM 10/01/2023, 11/07/2020, 11/06/2018, Additional history exists OSTEOPOROSIS SCREENING 09/23/2024 09/23/2019 INFLUENZA VACCINE (#1) 2025 05/04/2011 DIABETES HBA1C Q 6 MONTHS 04/29/20252024, 04/14/2024, 09/06/2023, Additional history exists COLORECTAL SCREENING 09/12/2032 09/12/2022 Colorectal Cancer Screening 09/12/2032 Procedures Procedure Name Priority Date/Time Associated Diagnosis Comments BASIC METABOLIC PANEL Routine 01/27/2025 1:28 PM CDT COMPREHENSIVE METABOLIC PANEL Routine 01/27/2025 12:02 PM CDT HEMOGLOBIN A1C Routine 09/12/2021 from Last 3 Months or Most Recently Relevant to Health Maintenance Results * BASIC METABOLIC PANEL (01/27/2025 1:28 PM CDT) Blood Jason Buckley MD CHEMISTRY ORDERABLES Final Resu lt * COMPREHENSIVE METABOLIC PANEL (01/27/2025 12:02 PM CDT) Blood Jason Buckley MD CHEMISTRY ORDERABLES Final Resu lt * HEMOGLOBIN A1C (09/12/2021) Blood Abstract Provider CHEMISTRY ORDERABLES Final Res ult from Last 3 Months or Most Recently Relevant to Health Maintenance Insurance MEDICARE PART A AND B [employer] MEDICARE PART A AND B FOR LIFE Care Teams Director Payer Relationship Specialty Start Date End Date Axel Price MD [address] [facility] [address] [place] [address] PCP - General Family Practice 12/19/17
--- OUTSIDE RECORDS SUMMARY | 2025-02-09 20:01 | XMS_ITS | Continuity of Care Document ---
Author Organization [facility] Address [address] [place] [address] Phone Care Team Providers Care Director Consumer Affairs Name Role Phone [employer] Unavailable [...] Diagnoses Date Provider Providers Copied on Encounter [facility], [address] [place] [address] [address], [place], [place], [id number], [place] tel:[phone] [facility] No Information 7 9 [employer] . [address] [facility], [facility] [address], [place], [address], [place]. tel:[phone] Referring Provider: Ernie Perdomo, [address], [place], [address]. tel:[phone] magana Provider: Belen Webster, [address] [facility], [place], [address]. tel:[phone] [facility], [address], [place], [place], [address], [place] tel:[phone] [facility] No Information 0-200 9 Doisy Edward. [address] [facility] , [address], [place], [address], [place]. tel:[phone] Office/outpat ient Visit, Est [facility], [address], [place], [place], [address], tel:[phone] [facility] No Information [phone] Frankel OD Akira. [address] [facility] , [address], [place], [place], [facility], [place]. tel:[phone] [facility], [address], [place], [place], [address], tel:[phone] [facility] No Information 0 [phone] Frankel OD Akira. [address] [facility] , [address], [place], [place], [facility], [place]. tel:[phone] [facility], [address], [place], [place], [address], tel:[phone] [facility] No Information [phone] Scanlon Neeta. [address] [facility] , [address], [place], [place], [facility], . tel:[phone] Family History Family Member Type Diagnosis Age [...]
--- OUTSIDE RECORDS SUMMARY | 2025-02-09 20:02 | XMS_ITS ---
Author Organization [facility] Address [address] [place], [place] [address] Care Team Providers Care Medical Equipment Repairer Name Role Phone RENETTA RIEVRO Unavailable [phone] Axel Price Unavailable Unavailable REASON FOR VISIT *General care [facility] Encounters Encounter Location Date Provider Diagnosis [facility] [place] [address] [place] [id number] 01/25/2025 RENETTA RIVERO Plan Of Treatment No Information Progress Notes * Matthew MUNGUIAB:[birth year] (74 yo F)Acc No.[id number]:01/25/2025 Patient: Ce YAN Provider: Jenniffer Rivero DPM :1950 A ge:74 Y S ex:Female Date:01/25/2025 Address:[facility] [address] Subjective: * Chief Complaints: * 1 . *General care [facility]. * Medical History: Objective: * Vitals: Assessment: Plan: * Treatment: * Billing Information: * Visit Code: * Procedure Codes: * Electronic signature of RENETTA RIVERO DPM on 02/09/2025 at 08:02 PM CDT Sign off status: Pending * Provider: Jenniffer Rivero DPM Date: 01/25/2025 Generated for Printi ng/Faxing/eTransmitting on: 02/09/2025 08:02 PM CDT
--- OUTSIDE RECORDS SUMMARY | 2025-02-09 20:02 | XMS_ITS | Patient Health Record ---
Author Organization [facility] Address [address] [place], [place] [id number] Care Team Providers Care Community Relations Coordinator Name Role Phone RENETTA RIVERO Unavailable [phone] Axel Price Unavailable Unavailable ARCHIE REDD Unavailable [phone] Allergies Allergen (clinical drug ingredient) Drug/Non Drug [...] 11/09/2024 Encounters Encounter Location Date Provider Diagnosis [address] [id number] 03/19/2024 ARCHIE REDD Other hammer toe(s) (acquired), right foot M20.41 ; Tinea unguium B35.1 ; Other hammer toe(s) (acquired), left foot M20.42 ; Pain in left toe(s) M79.675 ; Pain in right toe(s) M79.674 ; Unspecified atherosclerosis of [place] arteries of extremities, bilateral legs I70.203 and Type 2 diabetes mellitus with diabetic peripheral angiopathy without gangrene E11.51 [facility] [place] [address] [place], [place] [address] 05/25/2024 RENETTA SNOOK Tinea unguium B35.1 ; Pain in right foot M79.671 ; Pain in left foot M79.672 ; Atherosclerosis of [place] arteries of extremities with intermittent claudication, bilateral legs I70.213 and Acquired keratosis [keratoderma] palmaris et plantaris L85.1 [facility] [place] [address] [place] [id number] 09/07/2024 RENETTA SNOOK Tinea unguium B35.1 ; Pain in right foot M79.671 ; Pain in left foot M79.672 ; Atherosclerosis of [place] arteries of extremities with intermittent claudication, bilateral legs I70.213 and Acquired keratosis [keratoderma] palmaris et plantaris L85.1 [facility] [place] [address] [place] [id number] 11/09/2024 RENETTA SNOOK Tinea unguium B35.1 ; Pain in right foot M79.671 ; Pain in left foot M79.672 ; Atherosclerosis of [place] arteries of extremities with intermittent claudication, bilateral [...] foot (ICD-10 - M20.42) 09/07/2024 Atherosclerosis of [place] arteries of extremities with intermittent claudication, bilateral legs (ICD-10 - I70.213) 05/25/2024 Atherosclerosis of [place] arteries of extremities with intermittent claudication, bilateral legs (ICD-10 - I70.213) 03/19/2024 Pain in left toe(s) (ICD-10 - M79.675) 11/09/2024 Atherosclerosis of [place] arteries of extremities with intermittent claudication, bilateral [...] (ICD-10 - M79.674) 03/19/2024 Unspecified atherosclerosis of [place] arteries of extremities, bilateral legs (ICD-10 - [...] Date Coverage End Date Medicare Part B [facility] [address] [place] [address] [id number] Ce Lewis Self - patient is the insured for Life (All Regions) [address] [place], [place] [phone] [id number] Ce Lewis Self - patient is the insured Medical (General) History Medical History History ICD Code acid reflux stroke Cancer (Kidney) anemia Open Sores Arthritis Sleep apnea Diabetic Heart Disease depression hypertension Abnormal Bleeding
--- OUTSIDE RECORDS SUMMARY | 2025-02-09 20:03 | XMS_ITS ---
Author Organization [facility] [employer] [employer] Address [address] [place] [address] Care Team Providers Care Mining And Quarrying Machinery Repairer Name Role Phone Axel Price MD Primary Care Provider UnavailKrissy Clay Unavailable [phone] Mel Reed Unavailable [phone] REASON FOR VISIT Therapy visit, Anxiety Medications Medication SIG (Take, Route, Frequency, Duration) Notes Start Date End Date Status busPIRone HCl 10 MG 1 tablet Oral 3 time s a day; Duration: 90 days 04/20/2025 Active Myrbetriq 50 MG Oral 12/17/2023 Act emely FLUoxetine HCl 40 MG 1 capsule Oral Once a day; Duration: 90 days 12/17/2023 Active Jardiance 10 MG Oral 12/17/2023 Act emely Docusate Sodium 100 MG Oral 12/17/2023 Active Loratadine 10 MG Oral 12/17/2023 Ac tive Metoprolol Succinate ER 50 MG Oral 12/17/2023 Active Atorvastatin Calcium 20 MG Oral 12/17/2023 Active Lbcpg-4-rlsm Ethyl Esters 1 GM Oral 12/17/2023 Active Cyclobenzaprine HCl 5 MG Oral 12/17/2023 Active Pantoprazole Sodium 40 MG Oral 12/17/2023 Active hydroCHLOROthiazide 25 MG Oral 12/17/2023 Active Ferrous Sulfate 325 (65 Fe) MG 1 tablet Orally Three times a Week Active Latanoprost 0.005 % Ophthalmic 12/17/2023 Active Ascorbic Acid 500 MG 1 tablet Orally Onc e a day Active Lantus 100 UNIT/ML as directed Subcutaneous Active Calcium Carbonate 1250 (500 Ca) MG 1 tablet with food Orally Twice a day Active Vitamin B12 100 MCG as directed Orally Active Aspirin 81 81 MG 1 tablet Orally Once a day Active Compazine Active Valsartan 40 MG 1 tablet Orally Twic e a day Active Silver - as directed Externally Active Social History Tobacco Use: Social History Observation Description Date Details (start date - stop date) Former Smoker NA - NA Sex Assigned At : Social History Observation Description Sex Assigned At Female Household Question Answer Notes Marital status: Number of adults in household: 3 h er two adult children live with her Tobacco Control (Standard) Question Answer Notes Tobacco use: Former smoker Encounters [facility] [address] [place] [address] 02/09/2025 Mel Reed Major depressive disorder, recurrent, moderate F33.1 and Generalized anxiety disorder F41.1 Assessments Encounter Date Diagnosis (ICD Code) Assessment Notes Treatment Notes Treatment Clinical Notes Section Notes 02/09/2025 Major depressive disorder, recurrent, moderate (ICD-10 - F33.1) 02/09/2025 Generalized anxiety disorder (ICD-10 - F41.1) Plan Of Treatment Next Appt Details Follow Up: 3 Weeks, Reason: Provider Name:Mel Reed, 02/22/2025 11:00:00 AM, [facility], [facility] [address], [place], [address], Provider Name:Mel Reed, 03/08/2025 02:00:00 PM, [facility], [facility] [address], [place], [address], Progress Notes * IRENE MUNGUIADOB:1949 (74 yo F)Acc No.[id number]:02/09/2025 Patient: IRENE YAN Provider: Conor REED LCSW :1950 A ge:74 Y S ex:Female Date:02/09/2025 Address:[address] [place], [place] [address] Pcp:Axel Price MD Data: * Time Tracker: * Date Start Time End Time Duration User Type Captured By Mode Notes 02/09/2025 02:16 PM 03:07 PM 00:50:33 Therapist Mel Reed * Chief Complaints: * 1 . Therapy visit. 2. Anxiety. * HPI: C [place]-Suicide Severity Rating Scale: Suicide Risk (CSRS-screener) i n the past one month Have you wished you were or wished you could go to sleep and not wake up? N o i n the past one month Have you actually had any thoughts of killing yourself? N o F unctional Status: Functional Status Assessment F all Risk Assessment: O ne fall with injury in the past year P sychotherapy Information: DATE: 09 February 2025 CHIEF COMPLAINT:Family medical stressors SYMPTOMS: fatigue; feeling overwhelmed SEVERITY: Moderate CONTEXT: Cl. reported concern about sister's health - sister has collapsed lung/mass near heart.? Cl. has been trying to help her sister with ADL's- it's exhausting THERAPY MODALITY: Person centered INTERVENTION: During this session, clinician encouraged Cl. to discuss and process thoughts and feelings related to family medical stressors f or purpose of gaining insight.? Clinician provided support and validation where appropriate. RESPONSE: Cl. participated actively in discussion and provided relevant feedback. Cl. is making good progress. PLAN: See Treatment Plan. * Family History: P aternal Grandmother: Diabetes mellitus . S ister: Hypothyroidism , Malignant neoplastic disease . * Social History: T obacco Use: T obacco Control (Standard) T obacco use: F ormer smoker M igrated Social History: M igrated Social History: Alcohol Intake: Occasional 04/24/2022,Tobacco Years: Former smoker 04/10/2022,Smoking Status: 40 08/14/2023. D rug/Alcohol: D rugs H ave you used drugs other than those for medical reasons in the past 12 months? N o Caffeine I ntake: 1 -2 cups per day Do you drink alcohol?: Occasionally. H ousehold: H ousehold M arital status: w shelbywekiera N umber of adults in household: 3 her two adult children live with her M iscellaneous: S afety issues D o you feel safe at home? Y es A re there any firearms in the house? Y es Education H ighest achieved level of education S ome college, no degree * Medications: T aking Valsartan 40 MG [...] hydroCHLOROthiazide 25 MG Tablet Oral , Taking Kkhpk-1-bvty Ethyl Esters 1 GM Capsule Oral , [...] Extended Release 24 Hour Oral , Taking FLUoxetine HCl 40 MG Capsule 1 capsule Oral Once a day , Taking busPIRone HCl 10 MG Tablet 1 tablet Oral 3 times a day , stop date 04/20/2025, Medication List reviewed and reconciled with the [...] i ntact. Assessment: * Assessment: 1. M milagro depressive disorder, recurrent, moderate - F33.1 (Primary) 2 . G eneralized anxiety disorder - F41.1 Plan: * Treatment: * Procedure Codes: 1 036F TOBACCO NON-USER, 58733 PSYCHOTHERAPY W/PATIENT 45 MINUTES * Follow Up: 3 Weeks * Billing Information: * Visit Code: * Procedure Codes: 1036F TOBACCO NON-USER. 41326 PSYCHOTHERAPY W/PATIENT 45 MINUTES. * Sign off status: Completed Signatures: No Ad Hoc Signature Added true * Provider: Conor REED LCSW Date: 02/09/2025 Generated for Printi ng/Faxing/eTransmitting on: 02/09/2025 08:02 PM CDT History and Physical Notes * HPI (History of Present Illness) Category Sub-Category Detail Notes Category Not es Functional Status Functional Status Assessment Fall Risk Assessment:: One fall with injury in the past year Psychotherapy Information DATE: 09 February 2025 CHIEF COMPLAINT:Family medical stressors SYMPTOMS: fatigue; feeling overwhelmed SEVERITY: Moderate CONTEXT: Cl. reported concern about sister's health - sister has collapsed lung/mass near heart. Cl. has been trying to help her sister with ADL's- it's exhausting THERAPY MODALITY: Person centered INTERVENTION: During this session, clinician encouraged Cl. to discuss and process thoughts and feelings related to family medical stressors for purpose of gaining insight. Clinician provided support and validation where appropriate. RESPONSE: Cl. participated actively in discussion and provided relevant feedback. Cl. is making good progress. PLAN: See Treatment Plan [place]-Suicide Severity Rating Scale Suicide Risk (CSRS-screener) in the past one month Have you wished you were or wished you could go to sleep and not wake up?: No in the past one month Have y ou actually had any thoughts of killing yourself?: No Examination Category Sub-Category Detail Notes Category Not [...]
[2025-02-09 21:33] VITALS: BP 127/52; PULSE 74; RESP 18; O2SAT 96
== END 2025-02-09 21:44 | disposition home or self-care (01) ==
LOC: ANHED 19:59
PROVIDERS: Emergency Provider Student in an Organized Health Care Education/Training Program; PCP Family Medicine
DX: E11.649 Type 2 diabetes mellitus with hypoglycemia without coma (principal); E11.22 Type 2 diabetes mellitus with diabetic chronic kidney disease; I12.9 Hypertensive chronic kidney disease with stage 1 through stage 4 chronic kidney disease, or unspecified chronic kidney disease; N18.30 Chronic kidney disease, stage 3 unspecified; E78.5 Hyperlipidemia, unspecified; D64.9 Anemia, unspecified; G47.33 Obstructive sleep apnea (adult) (pediatric); M85.80 Other specified disorders of bone density and structure, unspecified site; Z96.611 Presence of right artificial shoulder joint; Z96.641 Presence of right artificial hip joint; Z85.528 Personal history of other malignant neoplasm of kidney; Z86.73 Personal history of transient ischemic attack (TIA), and cerebral infarction without residual deficits; Z87.891 Personal history of nicotine dependence; Z90.5 Acquired absence of kidney; Z90.710 Acquired absence of both cervix and uterus; Z90.722 Acquired absence of ovaries, bilateral; Z90.79 Acquired absence of other genital organ(s); Z90.49 Acquired absence of other specified parts of digestive tract; Z98.49 Cataract extraction status, unspecified eye; Z79.4 Long term (current) use of insulin; Z79.84 Long term (current) use of oral hypoglycemic drugs; Z79.899 Other long term (current) drug therapy; R94.31 Abnormal electrocardiogram [ECG] [EKG]
CPT/HCPCS: 36415; 80053; 82948; 85025; 93005; 96360; 99283; J7120

== ENCOUNTER 2025-05-20 08:10 | Outpatient (CLI) | payer MEDICARE, SELFPAY ==
[2025-05-20 08:24] LABS: Hematocrit 39.8 % (35.0-42.0); Hemoglobin 13.1 g/dL (11.7-13.8); Immature Granulocyte Percent A 0.8 % (0.0-0.0); Lymphocytes Absolute Auto 1.77 K/mm3 (1.10-4.50); Mean Corpuscular HGB Conc 32.9 g/dL (32-36); Mean Corpuscular Hemoglobin 28.2 pg (27.0-31.0); Mean Corpuscular Volume 85.8 fL (78.0-102.0); Nucleated Red Blood Cells Absolute Auto 0.00 K/mm3 (0.00-0.00); Nucleated Red Blood Cells Perc 0.0 % (0-0.0); Platelet Count Result 176 K/mm3 (150-420); Red Blood Count 4.64 M/mm3 (4.20-5.40); White Blood Count 8.7 K/mm3 (4.8-10.8)
[2025-05-20 08:56] LABS: Alanine Aminotransferase 13 U/L (6-35); Albumin Level 4.1 g/dL (3.5-5.1); Alkaline Phosphatase 62 U/L (38-126); Anion Gap 9 mmol/L (4-12); Aspartate Amino Transferase 23 U/L (14-36); Bilirubin,Total 0.6 mg/dL (0.2-1.3); Blood Urea Nitrogen 31 mg/dL (7-17); Calcium 9.4 mg/dL (8.4-10.2); Carbon Dioxide 34 mmol/L (22-30); Chloride 97 mmol/L (98-107); Cholesterol 142 mg/dL (0-200); Estimated Glomerular Filt Rate 47; Glucose 158 mg/dL (65-110); HDL Direct 27 mg/dL; Osmolality Calculated 299 mOsm/kg (285-295); Potassium 4.4 mmol/L (3.4-5.0); Sodium 140 mmol/L (137-145); Total Protein 7.3 g/dL (6.3-8.2); Triglycerides 251 mg/dL (<150)
[2025-05-20 08:59] LABS: Hemoglobin A1C 8.5 % (<5.7)
[2025-05-20 09:27] LABS: Thyroid Stimulating Hormone 1.090 uIU/mL (0.465-4.680)
== END 2025-05-20 08:11 | disposition home or self-care (01) ==
LOC: CHSLAB 08:14
PROVIDERS: PCP Family Medicine
DX: E11.42 Type 2 diabetes mellitus with diabetic polyneuropathy (principal); Z79.4 Long term (current) use of insulin
CPT/HCPCS: 36415; 80053; 80061; 83036; 84443; 85025

== ENCOUNTER 2025-06-16 14:10 | Outpatient (CLI) | payer MEDICARE, OTHER, SELFPAY ==
--- NOTE | ~2025-06-16 | US_ITS ---
Clinical History: I65.29 - Occlusion and stenosis of unspecified carotid ar... Examination: US carotid duplex BI Comparison: Carotid duplex 06/24/2024 Technique: Grayscale, color, duplex/spectral Doppler sonography carotid and vertebral arteries. Distal CCA and Peak ICA systolic velocities provided. Society of Radiologists in Ultrasound (SRU) consensus criteria utilized, indirectly assessing stenosis by velocities. Findings: Chronic occlusion left ICA. Mild plaque right carotid bulb. Right side: CCA -112 cm/sec. ICA - 191 cm/sec. ICA/CCA - 1.7 Normal antegrade flow measured bilateral vertebral arteries. IMPRESSION: 1. No acute findings or significant change. 2. 50-69% stenosis right ICA. 3. Chronic occlusion left ICA. 4. Normal bilateral antegrade vertebral artery flow. Stenosis measured by Society of Radiologists in Ultrasound (SRU) criteria. Reviewed, dictated and finalized at location R. TOLOGIST
--- OUTSIDE RECORDS SUMMARY | 2025-06-17 13:45 | XMS_ITS | Encounter Summary ---
Author Organization [facility] [employer] Address [address] [place] [address] Care Team Providers Care Math And Science Division Chair Name Role Phone Axel Price MD Primary Care Provider [phone] Encounter Details Date Type Department Care Team (Late Contact Info) Description 08/10/2022 Telephone [facility] Oncology and Hematology [facility] [address] [place] [address] Jaylen Chapin MD [address] [place] [phone] Social History Tobacco Use Types Packs/Day [...] Coronavirus/COVID-19? No / Unsure 08/10/2022 10:38 AM INCOME TAX ADJUSTER documented as of this encounter Plan of Treatment Upcoming Encounters Date Type Department Care Team (Late Contact Info) Description 07/28/2025 11:45 AM INCOME TAX ADJUSTER Office Visit [facility] Oncology and Hematology [facility] [address] [place] [address] Jason Buckley MD [address] [facility] [address] [place] [address] Scheduled Orders Name Type Priority Associated Diagnoses Orde r Schedule CBC WITH DIFFERENTIAL Lab Routine Iron deficiency anemia secondary to inadequate dietary iron intake Expected: 08/10/2022, Expires: 08/10/2023 documented as of this encounter Visit Diagnoses Diagnosis Iron deficiency anemia secondary to inadequate dietary iron intake- Primary documented in this encounter Care Teams Math And Science Division Chair Relationship Specialty Start Date End Date Axel Price MD [address] [facility] [place] [address] PCP - General Family Practice 12/19/17 documented as of this encounter
--- OUTSIDE RECORDS SUMMARY | 2025-06-17 13:45 | XMS_ITS | Clinical Summary ---
Author Organization [facility] Address [address] [place] [address] Care Team Providers Care Land Leases And Rentals Manager Name Role Phone Axel Price MD Primary Care Provider [phone] Allergies Active Allergy Reactions Criticality Noted Date [...] Rash Low 08/20/2007 Medications NARCAN 4 mg/actuation [place], Non-Aerosol SPRAY ONCE into nostril FOR [...] 25 mg tablet Take by mouth daily child care worker. Active montelukast (SINGULAIR) 10 mg tablet [...] tablet losartan 25 mg tablet Active Insulin [place], Disposable, (Sure Comfort Pen Needle) 31 gauge [...] Encounters Date Type Department Care Team Description 03/17/2025 External Device Data STL ABSTRACTION Provider, Abstract [...] st Contact Info) Description 07/28/2025 11:45 AM STILE RIPSAW OPERATOR Office Visit [facility] Oncology and Hematology [facility] [address] [facility] [address] [place] [address] Jason Buckley MD [address] [facility] [address] [place] [address] Health Maintenance Due Date Last Done Comments DIABETES ANNUAL FOOT EXAM 1968 DIABETES MICROALBUMIN ANNUAL SCREEN 1968 LDL CHOLESTEROL ANNUAL 1968 DTAP/TDAP/TD VACCINES (1 - Tdap) 1969 PNEUMOCOCCAL VACCINE 50+ YEA RS (1 of 2 - PCV) 1969 FIT-DNA Q 3 years 1995 FIT/FOBT Q 1 year 1995 Flex Sig/CT Colonography Q 5 years 1995 RSV VACCINE (60+ or ) (1 - Risk 50-74 years 1-dose series) 2000 ZOSTER VACCINE (1 of 2) 2000 DIABETES ANNUAL RETINAL EXAM 10/01/2023, 11/07/2020, 11/06/2018, Additional history exists INFLUENZA VACCINE (#1) 2025 BREAST CANCER SCREENING 10/30/2025 10/31/19 25, 10/30/2024, 09/23/2019, Additional history exists DIABETES HBA1C Q 6 MONTHS 11/19/20252024, 10/27/2024, 04/14/2024, Additional history exists OSTEOPOROSIS SCREENING 10/30/2029 10/30/2024, 2019 COLORECTAL SCREENING 09/12/2032 09/12/2022 Colorectal Cancer Screening [...] A AND B FOR LIFE Care Teams Land Leases And Rentals Manager Relationship Specialty Start Date End Date Axel Price MD [address] [facility] [address] [place] [address] PCP - General Family Practice 12/19/17
--- OUTSIDE RECORDS SUMMARY | 2025-06-17 13:46 | XMS_ITS | Clinical Summary ---
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 Gender Identity Not on file Sexual Orientation [...] 2000 Dexa Scan (General) 2015 COVID-19 Vaccine (2024-2 6 season) 2025 Influenza Adult (#1) 2025 RSV Immunization or 60+ Years (1 - 1-dose 75+ series) 2025 Hepatitis A Vaccines Aged Out No long er eligible based on patient's age to complete this topic Meningococcal B Vaccine Aged Out No l onger eligible based on patient's age to complete this topic Meningococcal Vaccine Aged Out No neymar mauro eligible based on patient's age to complete this topic RSV Immunizations Under 20 Months Aged Out No longer eligible based on patient's age to complete this topic
--- OUTSIDE RECORDS SUMMARY | 2025-06-17 13:46 | XMS_ITS | Patient Health Record ---
Author Organization [facility] Address [address] [place], [place] [id number] Care Team Providers Care Terminal Make Up Operator Name Role Phone RENETTA RIVERO Unavailable [phone] Axel Price Unavailable Unavailable Allergies Allergen (clinical [...] 11/09/2024 Encounters Encounter Location Date Provider Diagnosis [facility] [place] [address] [place], [place] [id number] 09/07/2024 RENETTA KIMMIEK Tinea unguium B35.1 ; Pain in right foot M79.671 ; Pain in left foot M79.672 ; Atherosclerosis of [place] arteries of extremities with intermittent claudication, bilateral legs I70.213 and Acquired keratosis [keratoderma] palmaris et plantaris L85.1 [facility] [place] [address] [place], [place] [id number] 11/09/2024 RENETTA MAT Tinea unguium B35.1 ; Pain in right foot M79.671 ; Pain in left foot M79.672 ; Atherosclerosis of [place] arteries of extremities with intermittent claudication, bilateral [...] foot (ICD-10 - M79.672) 09/07/2024 Atherosclerosis of [place] arteries of extremities with intermittent claudication, bilateral legs (ICD-10 - I70.213) 11/09/2024 Atherosclerosis of [place] arteries of extremities with intermittent claudication, bilateral [...] utilizing a #15 blade Plan Of Treatment No Information Insurance Providers Payer Name Payer Address Payer Phone Subscriber Number Group Number Insured Name Patient Relationship to Insured Coverage Start Date Coverage End Date Medicare Part B [facility] [place] [address] [place] [address] [id number] Ce Lewis Self - patient is the insured for Life ([employer] Reg[employer]) [address] [place], [place] [id number] [place] r, Ce Self - patient is the insured Medical (General) History Medical History History ICD Code acid reflux stroke Cancer (Kidney) anemia Open Sores Arthritis Sleep apnea Diabetic Heart Disease depression hypertension Abnormal Bleeding
--- OUTSIDE RECORDS SUMMARY | 2025-06-17 13:46 | XMS_ITS | Clinical Summary ---
Author Organization [facility] Address [address] [place] [address] Care Team Providers Care Nocturnist Physician Name Role Phone Axel Price MD Primary [...] every 6 hours as needed Active marlin mgu-qks-N1-Zn-co p-man-bor 250-40-125 mg-mg-unit tablet Take by mouth. [...] by mouth 3 times daily Active omega 9-ymw-aoa-fish oil (OMEGA-3) 350 mg-235 mg- 90 mg-597 [...] 3 3 Active blood-glucose meter,continuous (Dexcom G6 Tour Driver) misc Use as directed 1 each 3 Active blood-glucose meter,continuous (Dexcom G7 Tour Driver) miscIndications: Type 2 diabetes mellitus with diabetic polyneuropathy, with long-term current use of insulin ([facility]) Please use receivers to monitor blood glucose levels continuously. 1 each 3 Active blood-glucose sensor (Dexcom G7 Sensor) deviceIndication s:Type 2 diabetes mellitus with diabetic polyneuropathy, with long-term current use of insulin ([facility]) Will use 3 sensors per month to check blood sugar continuously. 3 each 4 Active empagliflozin (JARDIANCE) 10 mg tabletIndication s:Type 2 diabetes mellitus with diabetic polyneuropathy, with long-term current use of insulin ([facility]) Take 1 tablet (10 mg total) by mouth daily 90 tablet 3 4 Active empagliflozin (JARDIANCE) 10 mg tabletIndication s:Type 2 diabetes mellitus with diabetic polyneuropathy, with long-term current use of insulin (HCC) Take 1 tablet (10 mg total) by mouth daily 3 tablet 4 Active FreeStyle Lite Strips stripIndications :Type 2 diabetes mellitus with diabetic polyneuropathy, with long-term current use of insulin ([facility]) Use to check blood glucose levels 3 times daily. 300 each 3 5 Active pen needle, diabetic (Unifine Pentips) 32 gauge x needleIndication s:Type 2 diabetes mellitus with diabetic polyneuropathy, with long-term current use of insulin ([facility]) Use twice daily with insulin pen 200 each 3 5 Active LANTUS 100 unit/mL (3 mL) pen for injectionIndicat ions:Type 2 diabetes mellitus with diabetic polyneuropathy, with long-term current use of insulin ([facility]) Inject 55 units under the skin twice daily. 105 mL 3 5 Active insulin glargine 100 unit/mL (3 mL) pen for injectionIndicat ions:Type 2 diabetes mellitus with diabetic polyneuropathy, with long-term current use of insulin ([facility]) Inject 55 units under skin 2 (two) times a day 15 mL 3 5 Active Active Problems Problem Noted Date Diagnosed Date Chronic pain syndrome 06/03/2020 Overview (06/03/2020): Added automatically from request for surgery [id number] Subclinical hypothyroidism 07/08/2018 Assessment & Plan (07/08/2018 3:12 PM WIRE MILL OPERATOR): Clinically euthyroid w/o treatment and last TSH normal 3.28 and may be age related elevation previously. -monitor with period TFT Mixed hyperlipidemia 07/08/2018 Assessment & Plan (07/08/2018 3:13 PM WIRE MILL OPERATOR): LDL 57 excellent control on lipitor TG at goal 12/2017 on lovaza 4g Iron deficiency anemia 07/08/2018 Assessment & Plan (07/08/2018 3:13 PM WIRE MILL OPERATOR): Pt has been evaluated by hematology and appropriate work up performed HTN (hypertension), benign 12/19/2017 Major depression 12/19/2017 Spinal stenosis 12/19/2017 Type 2 diabetes mellitus wit h neurologic complication, with long-term current use of insulin 02/15/2015 Assessment & Plan (07/08/2018 3:12 PM WIRE MILL OPERATOR): Controlled A1c 7.4, but may be discrepant [...] Encounters Date Type Department Care Team Description 05/21/2025 Telephone [facility] Medicine Endocrinology Metabolism and Lipid [address] [facility] [address] [place] [id number] Gladys Osorio, sales order processor Results 05/21/2025 Telephone [facility] Endocrinology Metabolism and Lipid 1 [facility] [address] [place] [id number] Gladys Osorio, sales order processor Results 05/18/2025 Orders Only [facility] Medicine Endocrinology Metabolism and Lipid [address] [facility] [address] [place] [address] [place] [address] Gladys Osorio, RN Type 2 diabetes mellitus with diabetic polyneuropathy, with long-term current use of insulin (HCC) (Primary Dx) 05/18/2025 Orders Only [facility] Medicine Endocrinology Metabolism and Lipid [address] [facility] [address] [place] [address] [place] [address] Gladys Osorio, RN Type 2 diabetes mellitus with diabetic polyneuropathy, with long-term current use of insulin (HCC) (Primary Dx) 05/18/2025 Telephone [facility] Endocrinology Metabolism and Lipid [address] [facility] [address] [place] [address] [place] [address] Gladys Osorio RN Hypoglycemia from Last 3 Months Immunizations Immunization Administration [...] (gastroesophageal reflux disease) Type 2 diabetes mellitus Cerebrovascular accident (CVA) (HCC) Family History Medical [...] on file Legal Sex Female 2:40 AM WIRE MILL OPERATOR Gender Identity Not on file Sexual Orientation Not on file Last Filed Vital Signs Vital Sign Reading Time Taken Comments Blood Pressure 111/49 10/27/2024 1:25 PM CDT Pulse 62 10/27/2024 1:25 PM CDT Temperature 36.8 C (98.2 F) 10/27/2024 1:25 PM CDT Respiratory Rate 18 06/25/2020 7:55 AM WIRE MILL OPERATOR Oxygen Saturation 94% 06/25/2020 7:55 AM WIRE MILL OPERATOR Inhaled Oxygen Concentration - - Weight 77.1 [...] 02/13/2017 eGFR 03/12/2024 03/12/2023 Influenza Vaccine (#1) 2025 , 05/13/2017, 05/03/2016, Additional history exists Hemoglobin A1C 11/19/2025 05/21/2025, 10/10, 04/14/2024, Additional history exists Medical Devices Implanted Type Area Patrol Officer Device Identifier Shelf Expiration Date Model / Serial / Lot [employer]onic Neuro 8637-20 Synchromed Ii .78in [place] Filter Mesh Pouch Programmable - [id number] - [id number] Implanted:Qty: 1 on 06/24/2020 by Sabrina Whiting MD at [facility] [employer] 11/23/2021 8637 -20 / [id number] / Procedures Procedure Name Priority Date/Time Associated Diagnosis Comments HEMOGLOBIN A1C Routine 05/21/2025 1:25 PM CDT COMPREHENSIVE METABOLIC PANEL Routine 03/12/2023 2:05 PM CDT Type 2 diabetes mellitus with diabetic polyneuropathy, with long-term current use of insulin (HCC) LIPID PANEL Routine 03/12/2023 2:05 PM CDT Type 2 diabetes mellitus with diabetic polyneuropathy, with long-term current use of insulin (HCC) from Last 3 Months or Most Recently Relevant to Health Maintenance Results * Hemoglobin A1c (05/21/2025 1:25 PM CDT) Blood us Historical Provider LAB BLOOD ORDERABLES Deidra maru Result * (ABNORMAL) Lipid panel (03/12/2023 2:05 PM CDT) Triglycerides 160(H) <150 mg/dL [facility] Comment: Desirable: <150 mg/dL, fasting <175 mg/dL, non-fasting Persistently elevated triglycerides may enhance atherosclerotic cardiovascular disease. Total Cholesterol 123 <200 mg/dL [facility] Total HDL-C Direct 31(L) >50 mg/dL [facility] Comment: A low HDL-C may be inidcative of metabolic syndrome and enhance atherosclerotic cardiovascular disease risk. Non-HDL cholesterol 92 <220 mg/dL [facility] [place] LDL Chol 60 <190 mg/dL [facility] Comment: The inaccuracy of [...] LAB BLOOD ORDERABLES Final Resu lt [facility] [place] [facility] [...] Recently Relevant to Health Maintenance Insurance MEDICARE [employer] MEDICARE FOR LIFE Advance Directives For more information, please contact: [phone] * Full Code (Latest Code Status on File) Date Activated Date Inactivated Comments 06/24/2020 4:31 PM 06/25/2020 3:40 PM Care Teams Nocturnist Physician Relationship Specialty Start Date End Date Axel Price MD [address] [facility] [address] [place] [address] PCP - General 02/05/17
--- OUTSIDE RECORDS SUMMARY | 2025-06-17 13:46 | XMS_ITS | Patient Health Record ---
Author Organization [facility] Address [address] [place] [address] Care Team Providers Care Secondary Education Professor Name Role Phone Axel Price MD Primary Care Provider Krissy Mercado Unavailable [phone] Mel Delcid Unavailable [phone] Allergies Allergen (clinical drug ingredient) Drug/Non Drug [...] Duration) Notes Start Date End Date Status Compazine Active Cyclobenzaprine HCl 5 MG Tablet Oral 12/17/2023 Active Uxzdy-4-sgdu Ethyl Esters 1 GM Capsule Oral 12/17/2023 Active Aspirin 81 81 MG Tablet Delayed Release 1 tablet Orally Once a day Active Atorvastatin Calcium 20 MG Tablet Oral 12/17/2023 Active Vitamin B12 100 MCG Tablet as directed Orally Active Metoprolol Succinate ER 50 M G Tablet Extended Release 24 Hour Oral 12/17/2023 Active Calcium Carbonate 1250 (500 Ca) MG Tablet Chewable 1 tablet with food Orally Twice a day Active Jardiance 10 MG Tablet Oral 12/17/2023 Active Lantus 100 UNIT/ML Solution as directed Subcutaneous Active Loratadine 10 MG Tablet Oral 12/17/2023 Active Ferrous Sulfate 325 (65 Fe) MG Tablet 1 tablet Orally Three times a Week Active Myrbetriq 50 MG Tablet Extended Release 24 Hour Oral 12/17/2023 Act emely Ascorbic Acid 500 MG Tablet 1 tablet Ora lly Once a day Active Docusate Sodium 100 MG Capsule Oral 12/17/2023 Active Pantoprazole Sodium 40 MG Tablet Delayed Release Oral 12/17/2023 Activ e Latanoprost 0.005 % Solution Ophthalmic 12/17/2023 Active Silver - Gel as directed Externally Active Valsartan 40 MG Tablet 1 tablet Orally T wice a day Active hydroCHLOROthiazide 25 MG Tablet Oral 12/17/2023 Active busPIRone HCl 10 MG Tablet 1 tablet Oral 3 times a day; Duration: 90 days 09/07/2025 Active FLUoxetine HCl 40 MG Capsule 1 capsule O ral Once a day; Duration: 90 days 12/17/2023 Active Immunizations Vaccine Route Administration Date [...] History Observation Description Sex Assigned At Female Social History Miscellaneous: Social Info Question Answer Notes Education: Highest achieved level of education Some college, no degree Safety issues: Do you feel safe at home? Yes Are there any firearms in the house? Yes Household: Social Info Question Answer Notes Household Marital status: Number of adults in household: 3 h er two adult children live with her Drug/Alcohol: Social Info Question Answer Notes Drugs Have you used drugs other than those for medical reasons in the past 12 months? No Caffeine Intake: 1-2 cups per day Tobacco Use: Social Info Question Answer Notes Tobacco Control (Standard) Tobacco use: Former smoker Additional Details Category Social Info Options Details Migrated Social History Migrated Social History Alcohol Intake: Occasional 04/24/2022,Tobacco Years: Former smoker 04/10/2022,Smoking Status: 40 08/14/2023 Drug/Alcohol: Do you drink alcohol? Occas ionally Section Notes: Substance Use Do you or [...] Do you have a medical power of geologist petroleum?: No Substance Use Do you or have [...] Do you have a medical power of geologist petroleum?: No Substance Use Do you or have [...] Do you have a medical power of geologist petroleum?: No Substance Use Do you or have [...] Do you have a medical power of geologist petroleum?: No Substance Use Do you or have [...] Do you have a medical power of geologist petroleum?: No Substance Use Do you or have [...] Do you have a medical power of geologist petroleum?: No Substance Use Do you or have [...] Do you have a medical power of geologist petroleum?: No Substance Use Do you or have [...] Do you have a medical power of geologist petroleum?: No Problems Problem Type SNOMED Code ICD Code Onset Dates Problem Status W/U Status Risk Notes Problem Mild recurrent major depression (95939169) Major depressive disorder, recurrent, mild (F33.0) Active confirmed Problem Moderate recurrent major depression (08267024) Major depressive disorder, recurrent, moderate (F33.1) Active confirmed Problem Recurrent major depression in remission (59102387) Major depressive disorder, recurrent, in partial remission (F33.41) Active confirmed Problem Generalized anxiety disorder (57628035) Generalized anxiety disorder (F41.1) 4 Active confirmed Problem Primary insomnia (6094971) Primary insomnia (F51.01) 4 Active confirmed Problem Obstructive sleep apnea syndrome (disorder) (31103489) Obstructive sleep apnea (adult) (pediatric) (G47.33) 4 Active confirmed Problem Disturbed family (finding) (120414905) Family discord (Z63.8) Active confirmed Problem Essential hypertension (47700694) Benign essential HTN (I10) Active confirmed Vital Signs Heart Rate 56 /min 06/09/2025 Height-cm 167.64 cm 06/09/2025 Blood pressure diastolic 64 mm Hg 06/09/2025 Weight-kg 77.11 kg 06/09/2025 Height 66.00 in 06/09/2025 Blood pressure systolic 111 mm Hg 06/09/2025 Weight 170 lbs 06/09/2025 BMI 27.44 kg/m2 06/09/2025 Encounters Encounter Location Date Provider Diagnosis [facility] [address] [place] [address] 06/30/2024 Mel Delcid Major depressive disorder, recurrent, moderate F33.1 and Generalized anxiety disorder F41.1 [facility] [address] [place] [address] 07/15/2024 Krissy Delgado Major depressive disorder, recurrent, moderate F33.1 ; Generalized anxiety disorder F41.1 ; Primary insomnia F51.01 ; Family discord Z63.8 ; Obstructive sleep apnea (adult) (pediatric) G47.33 and Iron deficiency anemia, unspecified D50.9 [place] [address] [address] 07/17/2024 Mel Hemann Major depressive disorder, recurrent, moderate F33.1 and Generalized anxiety disorder F41.1 [place] [address] [address] 10/20/2024 Mel Hemann Major depressive disorder, recurrent, moderate F33.1 and Generalized anxiety disorder F41.1 [place] [address] [address] 10/20/2024 Krissy Hagopian Major depressive disorder, recurrent, in partial remission F33.41 ; Generalized anxiety disorder F41.1 ; Benign essential HTN I10 and Encounter for screening for depression Z13.31 [place] [address] [address] 11/20/2024 Mel Hemann Major depressive disorder, recurrent, moderate F33.1 and Generalized anxiety disorder F41.1 [place] [address] [address] 12/18/2024 Mel Hemann Major depressive disorder, recurrent, moderate F33.1 and Generalized anxiety disorder F41.1 [place] [address] [address] 01/20/2025 Krissy Hagopian Major depressive disorder, recurrent, in partial remission F33.41 ; Family discord Z63.8 ; Generalized anxiety disorder F41.1 ; Obstructive sleep apnea (adult) (pediatric) G47.33 ; Encounter for screening for cardiovascular disorders Z13.6 and Negative depression screening Z13.31 [place] [address] [address] 01/22/2025 Mel Hemann Major depressive disorder, recurrent, moderate F33.1 and Generalized anxiety disorder F41.1 [place] [address] [address] 02/09/2025 Mel Hemann Major depressive disorder, recurrent, moderate F33.1 and Generalized anxiety disorder F41.1 [place] [address] [place] [address] 04/28/2025 Mel Hemann Generalized anxiety disorder F41.1 and Major depressive disorder, recurrent, moderate F33.1 [facility] [address] [place] [address] 04/28/2025 Krissy Hagopian Generalized anxiety disorder F41.1 ; Major depressive disorder, recurrent, moderate F33.1 ; Primary insomnia F51.01 and Obstructive sleep apnea (adult) (pediatric) G47.33 [facility] [address] [place] [address] 05/19/2025 Mel Hemann Major depressive disorder, recurrent, moderate F33.1 and Generalized anxiety disorder F41.1 [facility] [address] [place] [address] 05/26/2025 Mel Hemann Major depressive disorder, recurrent, moderate F33.1 and Generalized anxiety disorder F41.1 [facility] [address] [facility] [address] [place] [address] 06/09/2025 Mel Hemann Generalized anxiety disorder F41.1 and Major depressive disorder, recurrent, moderate F33.1 [facility] [address] [facility] [address] [place] [address] 06/09/2025 Krissy Hagopian Major depressive disorder, recurrent, mild F33.0 ; Generalized anxiety disorder F41.1 ; Primary insomnia F51.01 and Obstructive sleep apnea (adult) (pediatric) G47.33 [facility] [address] [facility] [address] [place] [address] 07/17/2024 Krissy Hagopian [facility] [address] [place] [address] 10/02/2024 Krissy Hagopian Generalized anxiety disorder F41.1 [facility] [address] [place] [address] 12/16/2024 Krissy Hagopian Major depressive disorder, recurrent, in partial remission F33.41 [facility] [address] [place] [address] 04/08/2025 Krissy Hagopian Generalized anxiety disorder F41.1 and Major depressive disorder, recurrent, in partial remission F33.41 [facility], [facility] [address] [place] [address] 04/27/2025 Krissy Delgado Assessments Encounter Date Diagnosis (ICD Code) Assessment Notes Treatment Notes Treatment Clinical Notes Section Notes 12/16/2024 Major depressive disorder, recurrent, in partial remission (ICD-10 - F33.41) 11/20/2024 Major depressive disorder, recurrent, moderate (ICD-10 - F33.1) 11/20/2024 Generalized anxiety disorder (ICD-10 - F41.1) 10/20/2024 Major depressive disorder, recurrent, in partial remission (ICD-10 - F33.41) 10/20/2024 Generalized anxiety disorder (ICD-10 - F41.1) 01/20/2025 Family discord (ICD-10 - Z63.8) 06/09/2025 Generalized anxiety disorder (ICD-10 - F41.1) 05/26/2025 Major depressive disorder, recurrent, moderate (ICD-10 - F33.1) 05/19/2025 Major depressive disorder, recurrent, moderate (ICD-10 - F33.1) 01/20/2025 Major depressive disorder, recurrent, in partial remission (ICD-10 - F33.41) 10/20/2024 Major depressive disorder, recurrent, moderate (ICD-10 - F33.1) 10/20/2024 Generalized anxiety disorder (ICD-10 - F41.1) 10/02/2024 Generalized anxiety disorder (ICD-10 - F41.1) 07/17/2024 Major depressive disorder, recurrent, moderate (ICD-10 - F33.1) 07/17/2024 Generalized anxiety disorder (ICD-10 - F41.1) 06/30/2024 [...] Follow-up 3 months, sooner if concerns arise 12/18/2024 Major depressive disorder, recurrent, moderate (ICD-10 - F33.1) 12/18/2024 Generalized anxiety disorder (ICD-10 - F41.1) 01/22/2025 Major depressive disorder, recurrent, moderate (ICD-10 - F33.1) 01/22/2025 Generalized anxiety disorder (ICD-10 - F41.1) 02/09/2025 Major depressive disorder, recurrent, moderate (ICD-10 - F33.1) 02/09/2025 Generalized anxiety disorder (ICD-10 - F41.1) 04/28/2025 Generalized anxiety disorder (ICD-10 - F41.1) 04/28/2025 Major depressive disorder, recurrent, moderate (ICD-10 - F33.1) 04/28/2025 Generalized anxiety disorder (ICD-10 - F41.1) 06/09/2025 Major depressive disorder, recurrent, mild (ICD-10 - F33.0) 06/09/2025 Generalized anxiety disorder (ICD-10 - F41.1) 04/08/2025 Generalized anxiety disorder (ICD-10 - F41.1) 04/28/2025 Major depressive disorder, recurrent, moderate (ICD-10 - F33.1) 06/09/2025 Major depressive disorder, recurrent, moderate (ICD-10 - F33.1) 06/09/2025 Primary insomnia (ICD-10 - F51.01) 04/28/2025 Primary insomnia (ICD-10 - F51.01) 04/08/2025 Major depressive disorder, recurrent, in partial remission (ICD-10 - F33.41) 07/15/2024 Primary insomnia (ICD-10 - F51.01) Depression [...] 3 months, sooner if concerns arise 01/20/2025 Generalized anxiety disorder (ICD-10 - F41.1) 05/19/2025 Generalized anxiety disorder (ICD-10 - F41.1) 05/26/2025 Generalized anxiety disorder (ICD-10 - F41.1) 10/20/2024 Benign essential HTN (ICD-10 - I10) 10/20/2024 Encounter for screening for depression (ICD-10 - Z13.31) 01/20/2025 Obstructive sleep apnea (adult) (pediatric) (ICD-10 - G47.33) 04/28/2025 Obstructive sleep apnea (adult) (pediatric) (ICD-10 - G47.33) 06/09/2025 Obstructive sleep apnea (adult) (pediatric) (ICD-10 - G47.33) 07/15/2024 Family discord (ICD-10 - Z63.8) Depression [...] 3 months, sooner if concerns arise 01/20/2025 Encounter for screening for cardiovascular disorders (ICD-10 - Z13.6) 01/20/2025 Negative depression screening (ICD-10 - Z13.31) [...] or national office of the Alzheimer's Association ([phone] 00; http://www.al z.org), the Alzheimer's Disease Education and Referral Center (ADEOR) (; http://www. a.nih.gov/Alz hechirag/), Depression and Anxiety - Reports increased depressive [...] symptoms on current medication regimen. Anxiety and DepressionAssessm ent: Patient reports a recent episode of anxiety [...] 3 months, sooner if concerns arise 01/20/2025 Josselin Munguia, female, presents with fluctuating mood, anxiety, [...] up with CPAP machine and nightly use 04/28/2025 Other Depression and Anxiety Assessment: Patient reports experiencing sadness and grief with recent loss of her sister. Her anxiety levels have been elevated but managaeble, despite trouble with medical treatment and complications surrounding her sister's hospitalization and passing, and most recent health struggles her son has also faced. She reports she is managing and coping overall as well as expected, and denies suicidal ideations. Plan: - Continue fluoxetine 40 mg daily - Continue buspirone 10 mg TID - Follow up in 3 months Sleep Apnea Assessment: Patient reports trouble sleeping and fatigue, noting these have been chronic concerns. Has not maintained appropriate treatment with cpap therapy. Plan: - Encourage consistent CPAP use 06/09/2025 Josselin Munguia is a female patient with diabetes and sleep apnea presenting with persistent fatigue despite adequate nighttime sleep. Fatigue Patient reports being tired all the time despite getting adequate nighttime sleep by going to bed around midnight. She experiences a cycle where she gets up, does activities, and returns to the same tired state without feeling like doing anything. Her fatigue persists despite efforts to maintain good sleep hygiene. Plan: - Monitor energy levels and sleep quality - Patient advised to call for CPAP machine replacement if energy levels or sleep worsen Depression Patient's mood appears stable on current antidepressant therapy. No acute depressive symptoms reported during this visit. Plan: - Continue Prozac 40 mg daily Anxiety Patient reports doing okay with anxiety management on current medication regimen. No acute anxiety symptoms reported. Plan: - Continue buspirone 10 mg three times daily Sleep apnea Patient's CPAP machine was recalled and she was never notified. She currently sleeps sitting up in a chair, which she feels helps her sleep better. Sleep apnea remains untreated with appropriate equipment. Plan: - Reinforce need to obtain replacement CPAP machine Diabetes mellitus Patient is managing diabetes with dietary modifications, avoiding garbage food. Her A1c improved from 9.5 to 8.3. She reports occasional dietary indiscretions with three cookies when cheating. Blood sugar management includes adjusting insulin doses from prescribed 40 units to 25-30 units based on blood glucose levels. She experienced two episodes of hyperglycemia within two weeks, including one reading of 229 mg/dL. Sometimes experiences hypoglycemia requiring food intake before insulin administration. Plan: - Continue current diabetes management approach Medical Decision Making Irene Munguia is a female patient with diabetes and depression presenting with persistent fatigue and sleep difficulties. The patient reports ongoing fatigue despite attempting to maintain a midnight bedtime, with continued low energy and motivation during the day. Her diabetes management shows improvement with A1c decreasing from 9.5 to 8.3, though she continues to experience blood sugar fluctuations including two recent highs of 229 within two weeks and episodes of hypoglycemia requiring food intake before medication. Sleep apnea treatment has been complicated by a recalled CPAP machine, leading the patient to sleep upright in a chair as an alternative approach. Given stable mood and anxiety symptoms with current psychiatric medications, and considering the multifactorial nature of her fatigue involving both diabetes management and sleep apnea treatment disruption, continuing current psychiatric treatment while addressing the CPAP replacement appears appropriate. Plan Of Treatment Next Appt Details Provider Name:Mel Delcid, 06/23/2025 11:00:00 AM, [address], [facility], [place], [address], Provider Name:Mel Monaeекатерина, 07/14/2025 01:00:00 PM, [address], [facility], [place], [address], Provider Name:Mel Monaeекатерина, 08/02/2025 11:00:00 AM, [address], [place] [address], [place], [address], Provider Name:Kena Vaughn jenna, 08/25/2025 10:00:00 AM, [address], [place] [address], [place], [address], Provider Name:Mel Monaeекатерина, 08/25/2025 11:00:00 AM, [address], [address], [address], Insurance Providers Payer Name Payer Address Payer Phone Subscriber Number Group Number Insured Name Patient Relationship to Insured Coverage Start Date Coverage End Date Medicare-I l Medicare [address] [place] [phone] [id number] IRENE CHEUNG Self - patient is the insured For Life [address] [place] [address] [id number] IRENE CHEUNG Self - patient is the [...] 9 Surgical History Surgery Date(Month/Year) Cataract surgery (55580) Hysterectomy (31438) Tonsilectomy/adenoids 08/12/1955 Removal of gallbladder (32867) 0
== END 2025-06-16 14:11 | disposition home or self-care (01) ==
LOC: CHSIMG 14:11
PROVIDERS: PCP Family Medicine; Visit Provider Internal Medicine Cardiovascular Disease
DX: I65.23 Occlusion and stenosis of bilateral carotid arteries (principal)
CPT/HCPCS: 93880

== ENCOUNTER 2025-07-22 10:59 | Outpatient (CLI) | payer MEDICARE, OTHER, SELFPAY ==
[2025-07-22 11:15] LABS: Hematocrit 39.7 % (35.0-42.0); Hemoglobin 12.6 g/dL (11.7-13.8); Immature Granulocyte Percent A 0.3 % (0.0-0.0); Lymphocytes Absolute Auto 2.22 K/mm3 (1.10-4.50); Mean Corpuscular HGB Conc 31.7 g/dL (32-36); Mean Corpuscular Hemoglobin 27.3 pg (27.0-31.0); Mean Corpuscular Volume 86.1 fL (78.0-102.0); Nucleated Red Blood Cells Absolute Auto 0.00 K/mm3 (0.00-0.00); Nucleated Red Blood Cells Perc 0.0 % (0-0.0); Platelet Count Result 206 K/mm3 (150-420); Red Blood Count 4.61 M/mm3 (4.20-5.40); White Blood Count 9.8 K/mm3 (4.8-10.8)
[2025-07-22 11:40] LABS: Anion Gap 8 mmol/L (4-12); Blood Urea Nitrogen 26 mg/dL (7-17); Calcium 9.2 mg/dL (8.4-10.2); Carbon Dioxide 33 mmol/L (22-30); Chloride 99 mmol/L (98-107); Estimated Glomerular Filt Rate 43; Glucose 249 mg/dL (65-110); Iron 59 ug/dL (37-170); Osmolality Calculated 302 mOsm/kg (285-295); Potassium 4.5 mmol/L (3.4-5.0); Sodium 140 mmol/L (137-145)
[2025-07-22 11:50] LABS: Percent Iron Saturation 27 % (20-50)
[2025-07-22 12:16] LABS: Ferritin 178.00 ng/mL (11.1-264)
[2025-07-22 12:48] LABS: Vitamin B12 777.0 pg/mL (239-931)
== END 2025-07-22 11:00 | disposition home or self-care (01) ==
PROVIDERS: PCP Family Medicine; Visit Provider Internal Medicine Hematology & Oncology
DX: D64.9 Anemia, unspecified (principal)
CPT/HCPCS: 36415; 80048; 82607; 82728; 82746; 83540; 83550; 85025